=== PATIENT | female | born 1960 | race Caucasian/White ===

== ENCOUNTER 2017-12-13 20:17 | Emergency (ER) | payer BC ==
[2017-12-13 20:27] VITALS: TEMP 98.5
[2017-12-13] MEDS ORDERED: SODIUM CHLORIDE 0.9% 1,000 ML IV STA (20:54)
--- NOTE | 2017-12-13 20:56 | ED ---
General Adult HPI - General Chief complaint: Chest Pain Stated complaint: chest pain/nausea Time Seen by Provider: 12/13/17 20:29 Source: patient, RN notes reviewed, old records reviewed Mode of arrival: ambulatory Limitations: no limitations - History of Present Illness Initial comments: This is a 57-year-old female the ER for evaluation. Patient comes in for evaluation regarding multiple complaints. Patient is a lot of nonspecific complaints regarding nausea and vomiting. She states she is is disease is going through outpatient chemotherapy and after having therapy she does occasionally have nausea vomiting and sometimes N abnormalities. She obeys arm was continuing abdominal numbness and tingling. No diarrhea no fevers. - Related Data Home Medications Medication Instructions Recorded Confirmed Ibuprofen [Motrin] 600 mg PO Q8HR PRN 12/13/17 12/13/17 Lisinopril [Zestril] 5 mg PO DAILY 12/13/17 12/13/17 Ondansetron [Zofran ODT] 4 mg PO Q12HR PRN 12/13/17 12/13/17 Sulfamethox-Tmp 800-160Mg [Bactrim 1 tab PO DAILY 12/13/17 12/13/17 DS 800-160 mg] predniSONE 20 mg PO DAILY 12/13/17 12/13/17 Allergies Allergy/AdvReac Type Severity Reaction Status Date / Time azathioprine [From Imuran] Allergy Vomiting Verified 12/13/17 20:45 codeine Allergy Nausea Verified 12/13/17 20:45 metronidazole [From Flagyl] Allergy Anaphylaxis Verified 12/13/17 20:45 Review of Systems ROS Statement: Those systems with pertinent positive or pertinent negative responses have been documented in the HPI. ROS Other: All systems not noted in ROS Statement are negative. Past Medical History Past Medical History: Diabetes Mellitus Additional Past Medical History / Comment(s): Wegners GPA, Chemo for Wegners History of Any Multi-Drug Resistant Organisms: C-DIFF Date of last positivie culture/infection: 2014 Additional Past Surgical History / Comment(s): Right lung sugery Past Psychological History: No Psychological Hx Reported Smoking Status: Current every day smoker Past Alcohol Use History: None Reported Past Drug Use History: None Reported General Exam Limitations: no limitations General appearance: alert, in no apparent distress Head exam: Present: atraumatic, normocephalic, normal inspection Eye exam: Present: normal appearance, PERRL, EOMI. Absent: scleral icterus, conjunctival injection, periorbital swelling ENT exam: Present: normal exam, mucous membranes moist Neck exam: Present: normal inspection. Absent: tenderness, meningismus, lymphadenopathy Respiratory exam: Present: normal lung sounds bilaterally. Absent: respiratory distress, wheezes, rales, rhonchi, stridor Cardiovascular Exam: Present: regular rate, normal rhythm, normal heart sounds. Absent: systolic murmur, diastolic murmur, rubs, gallop, clicks GI/Abdominal exam: Present: soft, normal bowel sounds. Absent: distended, tenderness, guarding, rebound, rigid Extremities exam: Present: normal inspection, full ROM, normal capillary refill. Absent: tenderness, pedal edema, joint swelling, calf tenderness Back exam: Present: normal inspection Neurological exam: Present: alert, oriented X3, CN II-XII intact Psychiatric exam: Present: normal affect, normal mood Skin exam: Present: warm, dry, intact, normal color. Absent: rash Course Vital Signs 12/13/17 12/13/17 12/13/17 20:20 20:50 21:27 Temperature 98.5 F Pulse Rate 102 H 84 65 Respiratory 20 16 16 Rate Blood Pressure 158/78 136/64 154/75 O2 Sat by Pulse 96 96 97 Oximetry 12/13/17 23:07 Temperature 98.5 F Pulse Rate Respiratory Rate Blood Pressure O2 Sat by Pulse Oximetry - Reevaluation(s) Reevaluation #1: Patient's symptoms are currently resolved EKG Findings - EKG Comments: EKG Findings:: EKG shows normal sinus rhythm rate of 89, MO 1:30, QRS 68, QTc 447 Medical Decision Making - Medical Decision Making 57 female the ER with nonspecific symptoms nausea vomiting, patient symptoms are much improved versus resolved with hydration here in the ER patient can be discharged home - Lab Data Result diagrams: 12/13/17 20:54 12/13/17 20:54 Lab Results 12/13/17 12/13/17 12/13/17 Range/Units 20:54 20:54 20:54 WBC 7.2 (3.8-10.6) k/uL RBC 4.82 (3.80-5.40) m/uL Hgb 14.0 (11.4-16.0) gm/dL Hct 44.2 (34.0-46.0) % MCV 91.7 (80.0-100.0) fL MCH 29.1 (25.0-35.0) pg MCHC 31.7 (31.0-37.0) g/dL RDW 13.9 (11.5-15.5) % Plt Count 347 (150-450) k/uL Neutrophils % 71 % Lymphocytes % 22 % Monocytes % 5 % Eosinophils % 1 % Basophils % 0 % Neutrophils # 5.1 (1.3-7.7) k/uL Lymphocytes # 1.6 (1.0-4.8) k/uL Monocytes # 0.4 (0-1.0) k/uL Eosinophils # 0.1 (0-0.7) k/uL Basophils # 0.0 (0-0.2) k/uL PT (9.0-12.0) sec INR (<1.2) APTT (22.0-30.0) sec D-Dimer (<0.60) mg/L FEU Sodium 138 (137-145) mmol/L Potassium 5.0 (3.5-5.1) mmol/L Chloride 107 (98-107) mmol/L Carbon Dioxide 22 (22-30) mmol/L Anion Gap 9 mmol/L BUN 12 (7-17) mg/dL Creatinine 0.77 (0.52-1.04) mg/dL Est GFR (CKD-EPI)AfAm >90 (>60 ml/min/1.73 sqM) Est GFR (CKD-EPI)NonAf 85 (>60 ml/min/1.73 sqM) Glucose 105 H (74-99) mg/dL Calcium 9.3 (8.4-10.2) mg/dL Magnesium 2.1 (1.6-2.3) mg/dL Total Bilirubin 0.3 (0.2-1.3) mg/dL AST 29 (14-36) U/L ALT 47 (9-52) U/L Alkaline Phosphatase 64 (38-126) U/L Total Creatine Kinase 74 (30-135) U/L CK-MB (CK-2) 0.8 (0.0-2.4) ng/mL CK-MB (CK-2) Rel Index 1.1 Troponin I <0.012 (0.000-0.034) ng/mL Total Protein 6.9 (6.3-8.2) g/dL Albumin 4.4 (3.5-5.0) g/dL 12/13/17 Range/Units 20:54 WBC (3.8-10.6) k/uL RBC (3.80-5.40) m/uL Hgb (11.4-16.0) gm/dL Hct (34.0-46.0) % MCV (80.0-100.0) fL MCH (25.0-35.0) pg MCHC (31.0-37.0) g/dL RDW (11.5-15.5) % Plt Count (150-450) k/uL Neutrophils % % Lymphocytes % % Monocytes % % Eosinophils % % Basophils % % Neutrophils # (1.3-7.7) k/uL Lymphocytes # (1.0-4.8) k/uL Monocytes # (0-1.0) k/uL Eosinophils # (0-0.7) k/uL Basophils # (0-0.2) k/uL PT 9.5 (9.0-12.0) sec INR 1.0 (<1.2) APTT 23.7 (22.0-30.0) sec D-Dimer 0.93 H (<0.60) mg/L FEU Sodium (137-145) mmol/L Potassium (3.5-5.1) mmol/L Chloride (98-107) mmol/L Carbon Dioxide (22-30) mmol/L Anion Gap mmol/L BUN (7-17) mg/dL Creatinine (0.52-1.04) mg/dL Est GFR (CKD-EPI)AfAm (>60 ml/min/1.73 sqM) Est GFR (CKD-EPI)NonAf (>60 ml/min/1.73 sqM) Glucose (74-99) mg/dL Calcium (8.4-10.2) mg/dL Magnesium (1.6-2.3) mg/dL Total Bilirubin (0.2-1.3) mg/dL AST (14-36) U/L ALT (9-52) U/L Alkaline Phosphatase (38-126) U/L Total Creatine Kinase (30-135) U/L CK-MB (CK-2) (0.0-2.4) ng/mL CK-MB (CK-2) Rel Index Troponin I (0.000-0.034) ng/mL Total Protein (6.3-8.2) g/dL Albumin (3.5-5.0) g/dL - Radiology Data Radiology results: report reviewed (Chest x-ray CT is negative), image reviewed Disposition Clinical Impression: Atypical chest pain, Nausea & vomiting Disposition: HOME SELF-CARE Condition: Good Instructions: Acute Nausea and Vomiting (ED) Is patient prescribed a controlled substance at d/c from ED?: No Referrals: Connor Alvarez MD [Primary Care Provider] - 1-2 days
[2017-12-13 21:09] LABS: Basophils % (A) 0 %; Eosinophils # (A) 0.1 k/uL (0-0.7); Eosinophils % (A) 1 %; HCT 44.2 % (34.0-46.0); Lymphocytes # (A) 1.6 k/uL (1.0-4.8); Lymphocytes % (A) 22 %; MCH 29.1 pg (25.0-35.0); MCHC 31.7 g/dL (31.0-37.0); MCV 91.7 fL (80.0-100.0); Mean Platelet Volume 6.9; Monocytes # (A) 0.4 k/uL (0-1.0); Monocytes % (A) 5 %; Neutrophils # (A) 5.1 k/uL (1.3-7.7); Neutrophils % (A) 71 %; Platelet Count 347 k/uL (150-450); RBC 4.82 m/uL (3.80-5.40); RDW 13.9 % (11.5-15.5); WBC 7.2 k/uL (3.8-10.6)
[2017-12-13 21:18] LABS: ALT 47 U/L (9-52); AST 29 U/L (14-36); Albumin 4.4 g/dL (3.5-5.0); Alkaline Phosphatase 64 U/L (38-126); Anion Gap 9 mmol/L; Blood Urea Nitrogen 12 mg/dL (7-17); Calcium 9.3 mg/dL (8.4-10.2); Carbon Dioxide 22 mmol/L (22-30); Chloride 107 mmol/L (98-107); Glucose 105 mg/dL (74-99); Magnesium 2.1 mg/dL (1.6-2.3); Sodium 138 mmol/L (137-145); Total Bilirubin 0.3 mg/dL (0.2-1.3); Total Protein 6.9 g/dL (6.3-8.2)
[2017-12-13 21:24] LABS: Creatine Kinase 74 U/L (30-135)
[2017-12-13 21:27] VITALS: RESP 16
[2017-12-13 21:37] LABS: Creatine Kinase MB 0.8 ng/mL (0.0-2.4); Troponin I <0.012 ng/mL (0.000-0.034)
--- NOTE | 2017-12-13 21:38 | XR ---
EXAMINATION TYPE: XR chest 2V DATE OF EXAM: 12/13/2017 COMPARISON: NONE HISTORY: Weakness chest pain TECHNIQUE: Frontal and lateral views of the chest are obtained. FINDINGS: There is blunting of the right costophrenic angle. Heart size is normal. There is no heart failure. Lungs are clear of consolidation. IMPRESSION: Pleural fluid or reaction at the right lung base. Normal heart.
[2017-12-13 21:51] LABS: Partial Thromboplastin Time 23.7 sec (22.0-30.0); Prothrombin Time 9.5 sec (9.0-12.0)
[2017-12-13 21:59] LABS: D-Dimer 0.93 mg/L FEU (<0.60)
[2017-12-13] MEDS ORDERED: PANTOPRAZOLE 40 MG/10 ML VIAL IVP STA (22:00)
[2017-12-13] MEDS ORDERED: ONDANSETRON 4 MG/2 ML VIAL IVP STA (22:00)
[2017-12-13 22:04] VITALS: BP 154/75; PULSE 65
--- NOTE | 2017-12-13 22:41 | CT ---
EXAMINATION TYPE: CT angio chest DATE OF EXAM: 12/13/2017 10:27 PM COMPARISON: None HISTORY: Chest pain and nausea x1 week. CT DLP: 247.4 mGycm Automated exposure control for dose reduction was used. CONTRAST: CTA scan of the thorax is performed with IV Contrast, patient injected with 68ml mL of Isovue 370, pu lmonary embolism protocol. There are 3-D post processed images.. FINDINGS: There is blunting of right costophrenic angle. There is some elevation of the right diaphragm. There are clips at the right pulmonary hilum and apparent partial right lung resection. I see no filling de fects in the pulmonary arteries. There is absence of the right lower lobe pulmonary artery. There is no pericardial effusion. IMPRESSION: NO EVIDENCE OF PULMONARY EMBOLISM. THERE IS APPARENT RIGHT LOWER LOBECTOMY. THERE IS MILD PULMONARY S CARRING IN THE RESIDUAL RIGHT LUNG.
== END 2017-12-13 23:06 | disposition home or self-care (01) ==
LOC: EC 20:17
DX: R07.89 Other chest pain (principal); R11.2 Nausea with vomiting, unspecified; M31.30 Wegener's granulomatosis without renal involvement; F17.200 Nicotine dependence, unspecified, uncomplicated; Z79.52 Long term (current) use of systemic steroids; Z79.899 Other long term (current) drug therapy; Z88.1 Allergy status to other antibiotic agents; Z88.5 Allergy status to narcotic agent; Z88.8 Allergy status to other drugs, medicaments and biological substances
CPT/HCPCS: 36415; 93005; 85379; 80053; 82550; 82553; 83735; 84484; 85025; 85610; 85730; 71046; 71275; 99285; 96374; 96375; 96361; J2405; C9113; Q9967

== ENCOUNTER 2018-04-01 10:36 | Emergency (ER) | payer BC ==
[2018-04-01 10:43] VITALS: RESP 18
[2018-04-01] MEDS ORDERED: ONDANSETRON 4 MG/2 ML VIAL IVP STA (11:01)
[2018-04-01] MEDS ORDERED: PANTOPRAZOLE 40 MG/10 ML VIAL IVP STA (11:01)
[2018-04-01] MEDS ORDERED: SODIUM CHLORIDE 0.9% 1,000 ML IV STA ×2 (11:01)
[2018-04-01] MEDS ORDERED: IPRATROPIUM-ALBUTEROL 3 ML NEB INHALATION STA (11:03)
--- NOTE | 2018-04-01 11:06 | ED ---
Nausea/Vomiting/Diarrhea HPI - General Chief complaint: Nausea/Vomiting/Diarrhea Stated complaint: Vomiting/diarrhea Time Seen by Provider: 04/01/18 10:46 Source: patient, RN notes reviewed, old records reviewed Mode of arrival: ambulatory Limitations: no limitations - History of Present Illness Initial comments: Patient is a 58-year-old female with a history of nausea vomiting and diarrhea for 6 days. Patient states that over the past 3 days of vomiting since be getting worse. She has been taking nausea medication such as Zofran. 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 Patient states that she had a portion of her right lung removed a few years ago. Patient states that she's also noticed that she's had an increased cough production. - Related Data Home Medications Medication Instructions Recorded Confirmed Lisinopril [Zestril] 5 mg PO DAILY 12/13/17 04/01/18 Calcium Carbonate/Vitamin D3 1 tab PO DAILY 04/01/18 04/01/18 [Calcium 600-Vit D3 400 Caplet] Cholecalciferol (Vitamin D3) 10,000 unit PO DAILY 04/01/18 04/01/18 [Vitamin D3] predniSONE 7.5 mg PO DAILY 04/01/18 04/01/18 Previous Rx's Medication Instructions Recorded Nitrofurantoin Monohyd/M-Cryst 100 mg PO Q12HR #14 cap 04/01/18 [Macrobid] Allergies Allergy/AdvReac Type Severity Reaction Status Date / Time azathioprine [From Imuran] Allergy Vomiting Verified 04/01/18 11:26 codeine Allergy Nausea Verified 04/01/18 11:26 metronidazole [From Flagyl] Allergy Anaphylaxis Verified 04/01/18 11:26 Review of Systems ROS Statement: Those systems with pertinent positive or pertinent negative responses have been documented in the HPI. ROS Other: All systems not noted in ROS Statement are negative. Past Medical History Past Medical History: Diabetes Mellitus Additional Past Medical History / Comment(s): Wegners GPA, Chemo for Wegners History of Any Multi-Drug Resistant Organisms: C-DIFF Date of last positivie culture/infection: 2014 Additional Past Surgical History / Comment(s): Right lung sugery Past Psychological History: No Psychological Hx Reported Smoking Status: Current every day smoker Past Alcohol Use History: None Reported Past Drug Use History: None Reported General Exam - General Exam Comments Initial Comments: 4-year-old female. Alert and oriented. Limitations: no limitations General appearance: alert, in no apparent distress Head exam: Present: atraumatic, normocephalic, normal inspection Eye exam: Present: normal appearance, PERRL, EOMI. Absent: scleral icterus, conjunctival injection, periorbital swelling ENT exam: Present: normal exam, mucous membranes moist Neck exam: Present: normal inspection. Absent: tenderness, meningismus, lymphadenopathy Respiratory exam: Present: normal lung sounds bilaterally, wheezes (slight wheezing). Absent: respiratory distress, rales, rhonchi, stridor Cardiovascular Exam: Present: regular rate, normal rhythm, normal heart sounds. Absent: systolic murmur, diastolic murmur, rubs, gallop, clicks GI/Abdominal exam: Present: soft, normal bowel sounds. Absent: distended, tenderness, guarding, rebound, rigid Extremities exam: Present: normal inspection, full ROM, normal capillary refill. Absent: tenderness, pedal edema, joint swelling, calf tenderness Back exam: Present: normal inspection Neurological exam: Present: alert, oriented X3, CN II-XII intact Psychiatric exam: Present: normal affect, normal mood Skin exam: Present: warm, dry, intact, normal color. Absent: rash Course Vital Signs 04/01/18 04/01/18 04/01/18 10:40 12:12 12:22 Temperature 98.5 F Pulse Rate 107 H 108 H 106 H Respiratory 18 Rate Blood Pressure 161/89 O2 Sat by Pulse 94 L Oximetry 04/01/18 04/01/18 12:51 14:12 Temperature 98.6 F 98.7 F Pulse Rate 98 100 Respiratory 18 18 Rate Blood Pressure 160/70 151/85 O2 Sat by Pulse 95 96 Oximetry Medical Decision Making - Medical Decision Making 58-year-old female presents today with 1 week of vomiting and diarrhea. She was unable to produce a stool sample while in the emergency department. She is given IV Zofran states that she was hungry and she wanted a sandwich. She is emergent tolerated food. Patient lab work was obtained. She does have evidence of a urinary tract infection. Most likely related from diarrhea and wiping. Culture will be obtained. We'll put the Patient on antibiotics to cover for UTI. Patient does have nausea medication at home. She does feel better after receiving IV fluids and Protonix. I discussed the Patient should return with stool sample so we can do further testing and stool cultures. Patient will be discharged at this time with close follow-up with her primary care doctor, as well as advised to return the stool samples for further testing. Patient agrees to treatment plan will comply. - Lab Data Result diagrams: 04/01/18 11:23 04/01/18 11:23 Lab Results 04/01/18 04/01/18 04/01/18 Range/Units 10:50 11:23 11:23 WBC 7.8 (3.8-10.6) k/uL RBC 5.46 H (3.80-5.40) m/uL Hgb 15.1 (11.4-16.0) gm/dL Hct 48.0 H (34.0-46.0) % MCV 87.9 (80.0-100.0) fL MCH 27.6 (25.0-35.0) pg MCHC 31.4 (31.0-37.0) g/dL RDW 13.6 (11.5-15.5) % Plt Count 481 H (150-450) k/uL Neutrophils % 66 % Lymphocytes % 20 % Monocytes % 8 % Eosinophils % 3 % Basophils % 1 % Neutrophils # 5.1 (1.3-7.7) k/uL Lymphocytes # 1.6 (1.0-4.8) k/uL Monocytes # 0.6 (0-1.0) k/uL Eosinophils # 0.2 (0-0.7) k/uL Basophils # 0.1 (0-0.2) k/uL PT (9.0-12.0) sec INR (<1.2) APTT (22.0-30.0) sec Sodium 139 (137-145) mmol/L Potassium 3.7 (3.5-5.1) mmol/L Chloride 101 (98-107) mmol/L Carbon Dioxide 23 (22-30) mmol/L Anion Gap 15 mmol/L BUN 16 (7-17) mg/dL Creatinine 0.74 (0.52-1.04) mg/dL Est GFR (CKD-EPI)AfAm >90 (>60 ml/min/1.73 sqM) Est GFR (CKD-EPI)NonAf 89 (>60 ml/min/1.73 sqM) Glucose 109 H (74-99) mg/dL Plasma Lactic Acid Jacobo (0.7-2.0) mmol/L Calcium 10.5 H (8.4-10.2) mg/dL Total Bilirubin 0.7 (0.2-1.3) mg/dL AST 20 (14-36) U/L ALT 35 (9-52) U/L Alkaline Phosphatase 64 (38-126) U/L Total Protein 7.5 (6.3-8.2) g/dL Albumin 4.7 (3.5-5.0) g/dL Amylase 43 (30-110) U/L Lipase 220 (23-300) U/L Urine Color Yellow Urine Appearance Cloudy H (Clear) Urine pH 6.0 (5.0-8.0) Ur Specific [place] 1.017 (1.001-1.035) Urine Protein 2+ H (Negative) Urine Glucose (UA) Negative (Negative) Urine Ketones 1+ H (Negative) Urine Blood Small H (Negative) Urine Nitrite Negative (Negative) Urine Bilirubin 1+ H (Negative) Urine Urobilinogen 3.0 (<2.0) mg/dL Ur Leukocyte Esterase Large H (Negative) Urine RBC 7 H (0-5) /hpf Urine WBC 53 H (0-5) /hpf Ur Squamous Epith Cells 18 H (0-4) /hpf Urine Bacteria Occasional H (None) /hpf Hyaline Casts 56 H (0-2) /lpf Urine Mucus Many H (None) /hpf 04/01/18 04/01/18 Range/Units 11:23 11:23 WBC (3.8-10.6) k/uL RBC (3.80-5.40) m/uL Hgb (11.4-16.0) gm/dL Hct (34.0-46.0) % MCV (80.0-100.0) fL MCH (25.0-35.0) pg MCHC (31.0-37.0) g/dL RDW (11.5-15.5) % Plt Count (150-450) k/uL Neutrophils % % Lymphocytes % % Monocytes % % Eosinophils % % Basophils % % Neutrophils # (1.3-7.7) k/uL Lymphocytes # (1.0-4.8) k/uL Monocytes # (0-1.0) k/uL Eosinophils # (0-0.7) k/uL Basophils # (0-0.2) k/uL PT 9.4 (9.0-12.0) sec INR 0.9 (<1.2) APTT 23.5 (22.0-30.0) sec Sodium (137-145) mmol/L Potassium (3.5-5.1) mmol/L Chloride (98-107) mmol/L Carbon Dioxide (22-30) mmol/L Anion Gap mmol/L BUN (7-17) mg/dL Creatinine (0.52-1.04) mg/dL Est GFR (CKD-EPI)AfAm (>60 ml/min/1.73 sqM) Est GFR (CKD-EPI)NonAf (>60 ml/min/1.73 sqM) Glucose (74-99) mg/dL Plasma Lactic Acid Jacobo 1.3 (0.7-2.0) mmol/L Calcium (8.4-10.2) mg/dL Total Bilirubin (0.2-1.3) mg/dL AST (14-36) U/L ALT (9-52) U/L Alkaline Phosphatase (38-126) U/L Total Protein (6.3-8.2) g/dL Albumin (3.5-5.0) g/dL Amylase (30-110) U/L Lipase (23-300) U/L Urine Color Urine Appearance (Clear) Urine pH (5.0-8.0) Ur Specific [place] (1.001-1.035) Urine Protein (Negative) Urine Glucose (UA) (Negative) Urine Ketones (Negative) Urine Blood (Negative) Urine Nitrite (Negative) Urine Bilirubin (Negative) Urine Urobilinogen (<2.0) mg/dL Ur Leukocyte Esterase (Negative) Urine RBC (0-5) /hpf Urine WBC (0-5) /hpf Ur Squamous Epith Cells (0-4) /hpf Urine Bacteria (None) /hpf Hyaline Casts (0-2) /lpf Urine Mucus (None) /hpf - Radiology Data Radiology results: report reviewed Chronic changes to the right hemithorax without acute pulmonary process. Disposition Clinical Impression: Nausea & vomiting, Diarrhea, UTI (urinary tract infection) Disposition: HOME SELF-CARE Condition: Good Instructions: Acute Nausea and Vomiting (ED), Acute Diarrhea (ED) Additional Instructions: Patient has a close follow-up with primary care physician. Return to emergency department if any alarming signs or symptoms occur. Patient should return a stool study sample for outpatient testing. Prescriptions: Nitrofurantoin Monohyd/M-Cryst [Macrobid] 100 mg PO Q12HR #14 cap Is patient prescribed a controlled substance at d/c from ED?: No Referrals: Connor Alvarez MD [Primary Care Provider] - 1-2 days Time of Disposition: 13:42
[2018-04-01 11:52] LABS: Basophils # (A) 0.1 k/uL (0-0.2); Basophils % (A) 1 %; Eosinophils # (A) 0.2 k/uL (0-0.7); Eosinophils % (A) 3 %; HGB 15.1 gm/dL (11.4-16.0); Lymphocytes # (A) 1.6 k/uL (1.0-4.8); Lymphocytes % (A) 20 %; MCH 27.6 pg (25.0-35.0); MCHC 31.4 g/dL (31.0-37.0); MCV 87.9 fL (80.0-100.0); Mean Platelet Volume 6.5; Monocytes # (A) 0.6 k/uL (0-1.0); Monocytes % (A) 8 %; Neutrophils # (A) 5.1 k/uL (1.3-7.7); Neutrophils % (A) 66 %; Platelet Count 481 k/uL (150-450); RBC 5.46 m/uL (3.80-5.40); RDW 13.6 % (11.5-15.5); WBC 7.8 k/uL (3.8-10.6)
--- NOTE | 2018-04-01 11:54 | XR ---
EXAMINATION TYPE: XR chest 2V DATE OF EXAM: 04/01/2018 COMPARISON: Chest x-ray and CT chest December 13, 2017 HISTORY: Chest and abdominal pain. Nausea vomiting and diarrhea for 6 days. TECHNIQUE: Frontal and lateral views of the chest are obtained. FINDINGS: There is redemonstration of right-sided volume loss with mediastinal shift and chronic ozzie nting of right lateral costophrenic angle without significant effusion. There is scattered right lung linear scarring. There is old displaced fracture posterior right fourth rib redemonstrated. Left jermaine g remains clear. The cardiac silhouette size remains within normal limits. IMPRESSION: Chronic changes to right hemithorax without acute pulmonary process.
[2018-04-01 12:06] LABS: INR 0.9 (<1.2); Partial Thromboplastin Time 23.5 sec (22.0-30.0); Prothrombin Time 9.4 sec (9.0-12.0)
[2018-04-01 12:13] LABS: Appearance,Urine Cloudy (Clear); Bacteria,Urine Occasional /hpf; Bilirubin,Urine 1+ (Negative); Blood,Urine Small (Negative); Color,Urine Yellow; Glucose,Urine (UA) Negative (Negative); Hyaline Casts,Urine 56 /lpf (0-2); Ketones,Urine 1+ (Negative); Leukocyte Esterase,Urine Large (Negative); Mucus,Urine Many /hpf; Nitrite,Urine Negative (Negative); Protein,Urine 2+ (Negative); RBC,Urine 7 /hpf (0-5); Specific Gravity,Urine 1.017 (1.001-1.035); Squamous Epithelial Cell,Urine 18 /hpf (0-4); WBC,Urine 53 /hpf (0-5)
[2018-04-01 12:13] LABS: ALT 35 U/L (9-52); AST 20 U/L (14-36); Albumin 4.7 g/dL (3.5-5.0); Alkaline Phosphatase 64 U/L (38-126); Amylase 43 U/L (30-110); Anion Gap 15 mmol/L; Blood Urea Nitrogen 16 mg/dL (7-17); Calcium 10.5 mg/dL (8.4-10.2); Carbon Dioxide 23 mmol/L (22-30); Chloride 101 mmol/L (98-107); Glucose 109 mg/dL (74-99); Lipase 220 U/L (23-300); Potassium 3.7 mmol/L (3.5-5.1); Sodium 139 mmol/L (137-145); Total Bilirubin 0.7 mg/dL (0.2-1.3); Total Protein 7.5 g/dL (6.3-8.2)
[2018-04-01 14:13] VITALS: BP 151/85; PULSE 100; TEMP 98.7
== END 2018-04-01 14:10 | disposition home or self-care (01) ==
LOC: EC 10:36
DX: N39.0 Urinary tract infection, site not specified (principal); R19.7 Diarrhea, unspecified; F17.200 Nicotine dependence, unspecified, uncomplicated; Z79.899 Other long term (current) drug therapy; Z79.51 Long term (current) use of inhaled steroids; Z88.5 Allergy status to narcotic agent; Z88.1 Allergy status to other antibiotic agents; Z88.8 Allergy status to other drugs, medicaments and biological substances
CPT/HCPCS: 36415; 94640; 80053; 82150; 83605; 83690; 85025; 85610; 85730; 81001; 87040; 87086; 71046; 99284; 96374; 96375; 96361 ×2; J2405; C9113

== ENCOUNTER → 2018-08-07 | Outpatient (CLI) | payer SELFPAY ==
--- NOTE | 2018-08-07 13:21 | XR ---
EXAMINATION TYPE: XR Hip Complete RT DATE OF EXAM: 08/07/2018 CLINICAL HISTORY: Right hip pain with no known injury TECHNIQUE: AP and frogleg views of the right hip are obtained. COMPARISON: None. FINDINGS: There is no acute fracture/dislocation evident in the right hip. The joint space in the r ight hip demonstrates very minimal joint space narrowing. The overlying soft tissue appears unremark able. IMPRESSION: There is no acute fracture or dislocation in the right hip. Very minimal right femoral a cetabular arthropathy.
== END | disposition home or self-care (01) ==
LOC: RADXRMAIN 12:47
PROVIDERS: ATTEND Internal Medicine
DX: M16.11 Unilateral primary osteoarthritis, right hip (principal)
CPT/HCPCS: 73502

== ENCOUNTER 2018-08-22 15:58 | Observation (INO) | payer BC ==
[2018-08-22] MEDS ORDERED: IPRATROPIUM-ALBUTEROL 3 ML NEB INHALATION STA (17:44)
[2018-08-22] MEDS ORDERED: methylPREDNISolone SOD SUCCI 125 MG/2 ML VIAL IV STA (17:44)
--- NOTE | 2018-08-22 17:48 | ED ---
General Adult HPI - General Chief complaint: Shortness of Breath Stated complaint: Diff Breathing Time Seen by Provider: 08/22/18 16:30 Source: patient, RN notes reviewed Mode of arrival: ambulatory Limitations: no limitations - History of Present Illness Initial comments: Patient is a pleasant 58-year-old female presenting to emergency department with difficulty breathing. Patient was advised come the emergency department by Dr. Jung. Patient has been having symptoms for approximately one month now. 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 Patient does not believe she hasn't been any other area of her body. Patient does have history of lung resection approximately 2 and half years ago that was approximately two thirds of the right lung. Patient has been coughing. Patient has thick/opaque yellow sputum. Patient was placed on azithromycin. Following no improvement patient was placed on steroids and amoxicillin. Patient still is getting no better. Patient has been using her inhaler frequently. Normally she does not need to use it. - Related Data Home Medications Medication Instructions Recorded Confirmed predniSONE 7.5 mg PO DIRECTED 04/01/18 08/22/18 Albuterol Inhaler [Ventolin Hfa 1 - 2 puff INHALATION RT-Q6H PRN 08/22/18 08/22/18 Inhaler] Amoxic-Pot Clav 500-125 mg 1 tab PO BID 08/22/18 08/22/18 [Augmentin 500-125 mg] Bacillus Coagulans [Digestive 1 tab PO DAILY 08/22/18 08/22/18 Advantage] Biotin 5,000 mcg PO DAILY 08/22/18 08/22/18 Pantoprazole Sodium [Protonix] 40 mg PO DAILY 08/22/18 08/22/18 predniSONE See Taper PO DAILY 08/22/18 08/22/18 Allergies Allergy/AdvReac Type Severity Reaction Status Date / Time azathioprine [From Imuran] Allergy Vomiting Verified 08/22/18 17:36 codeine Allergy Nausea Verified 08/22/18 17:36 metronidazole [From Flagyl] Allergy Anaphylaxis Verified 08/22/18 17:36 Review of Systems ROS Statement: Those systems with pertinent positive or pertinent negative responses have been documented in the HPI. ROS Other: All systems not noted in ROS Statement are negative. Constitutional: Denies: fever Eyes: Denies: eye pain ENT: Denies: ear pain Respiratory: Reports: cough, dyspnea Cardiovascular: Denies: chest pain Endocrine: Reports: fatigue Gastrointestinal: Denies: abdominal pain Genitourinary: Denies: dysuria Musculoskeletal: Denies: back pain Skin: Denies: rash Neurological: Denies: weakness Past Medical History Past Medical History: Diabetes Mellitus Additional Past Medical History / Comment(s): Wegners GPA, Chemo for Wegners History of Any Multi-Drug Resistant Organisms: C-DIFF Date of last positivie culture/infection: 2014 Additional Past Surgical History / Comment(s): Right lung sugery Past Psychological History: No Psychological Hx Reported Smoking Status: Current every day smoker Past Alcohol Use History: None Reported Past Drug Use History: None Reported General Exam Limitations: no limitations General appearance: alert, in no apparent distress Head exam: Present: atraumatic Eye exam: Present: normal appearance, PERRL ENT exam: Present: normal oropharynx Neck exam: Present: normal inspection Respiratory exam: Present: wheezes (Harsh wheeze) Cardiovascular Exam: Present: regular rate, normal rhythm GI/Abdominal exam: Present: soft. Absent: tenderness Extremities exam: Present: normal inspection. Absent: pedal edema, calf tenderness Neurological exam: Present: alert Psychiatric exam: Present: normal affect, normal mood Skin exam: Present: normal color Course Vital Signs 08/22/18 08/22/18 08/22/18 16:11 18:22 18:34 Temperature 98.5 F Pulse Rate 96 77 85 Respiratory 20 Rate Blood Pressure 140/74 O2 Sat by Pulse 100 Oximetry EKG Findings - EKG Comments: EKG Findings:: Normal sinus rhythm 89. MS 134. QRS 70. QT 386. QTc 469. Normal axis. Normal QRS. No acute ST change. Medical Decision Making - Medical Decision Making Patient reevaluated and resting comfortably in bed. Patient updated on results and plan. Case was discussed in detail with Dr. Alvarez who is familiar with this patient. He would like admission with IV steroids and Zosyn and Levaquin. He would also like consult Dr. Duong. He does recommend holding on computed tomography scan at this point until evaluated by Dr. Duong. - Lab Data Result diagrams: 08/22/18 17:52 08/22/18 17:52 Lab Results 08/22/18 08/22/18 08/22/18 Range/Units 17:52 17:52 17:52 WBC 10.3 (3.8-10.6) k/uL RBC 4.75 (3.80-5.40) m/uL Hgb 12.9 (11.4-16.0) gm/dL Hct 40.7 (34.0-46.0) % MCV 85.7 (80.0-100.0) fL MCH 27.1 (25.0-35.0) pg MCHC 31.7 (31.0-37.0) g/dL RDW 15.2 (11.5-15.5) % Plt Count 488 H (150-450) k/uL Neutrophils % 88 % Lymphocytes % 10 % Monocytes % 2 % Eosinophils % 1 % Basophils % 0 % Neutrophils # 9.0 H (1.3-7.7) k/uL Lymphocytes # 1.0 (1.0-4.8) k/uL Monocytes # 0.2 (0-1.0) k/uL Eosinophils # 0.1 (0-0.7) k/uL Basophils # 0.0 (0-0.2) k/uL PT 9.4 (9.0-12.0) sec INR 0.9 (<1.2) APTT 22.7 (22.0-30.0) sec Sodium 138 (137-145) mmol/L Potassium 5.0 (3.5-5.1) mmol/L Chloride 107 (98-107) mmol/L Carbon Dioxide 23 (22-30) mmol/L Anion Gap 8 mmol/L BUN 18 H (7-17) mg/dL Creatinine 0.70 (0.52-1.04) mg/dL Est GFR (CKD-EPI)AfAm >90 (>60 ml/min/1.73 sqM) Est GFR (CKD-EPI)NonAf >90 (>60 ml/min/1.73 sqM) Glucose 152 H (74-99) mg/dL Calcium 9.7 (8.4-10.2) mg/dL Total Bilirubin 0.3 (0.2-1.3) mg/dL AST 17 (14-36) U/L ALT 27 (9-52) U/L Alkaline Phosphatase 69 (38-126) U/L NT-Pro-B Natriuret Pep pg/mL Total Protein 6.8 (6.3-8.2) g/dL Albumin 4.4 (3.5-5.0) g/dL 08/22/18 Range/Units 17:52 WBC (3.8-10.6) k/uL RBC (3.80-5.40) m/uL Hgb (11.4-16.0) gm/dL Hct (34.0-46.0) % MCV (80.0-100.0) fL MCH (25.0-35.0) pg MCHC (31.0-37.0) g/dL RDW (11.5-15.5) % Plt Count (150-450) k/uL Neutrophils % % Lymphocytes % % Monocytes % % Eosinophils % % Basophils % % Neutrophils # (1.3-7.7) k/uL Lymphocytes # (1.0-4.8) k/uL Monocytes # (0-1.0) k/uL Eosinophils # (0-0.7) k/uL Basophils # (0-0.2) k/uL PT (9.0-12.0) sec INR (<1.2) APTT (22.0-30.0) sec Sodium (137-145) mmol/L Potassium (3.5-5.1) mmol/L Chloride (98-107) mmol/L Carbon Dioxide (22-30) mmol/L Anion Gap mmol/L BUN (7-17) mg/dL Creatinine (0.52-1.04) mg/dL Est GFR (CKD-EPI)AfAm (>60 ml/min/1.73 sqM) Est GFR (CKD-EPI)NonAf (>60 ml/min/1.73 sqM) Glucose (74-99) mg/dL Calcium (8.4-10.2) mg/dL Total Bilirubin (0.2-1.3) mg/dL AST (14-36) U/L ALT (9-52) U/L Alkaline Phosphatase (38-126) U/L NT-Pro-B Natriuret Pep 129 pg/mL Total Protein (6.3-8.2) g/dL Albumin (3.5-5.0) g/dL - Radiology Data Radiology results: image reviewed (Two-view chest x-ray does show pleural reaction and thickening on the right side. No change from previous.) Disposition Clinical Impression: Dyspnea Disposition: ADMITTED IP TO THIS HOSP Is patient prescribed a controlled substance at d/c from ED?: No Referrals: Connor Alvarez MD [Primary Care Provider] - 1-2 days Decision Time: 19:32
[2018-08-22 18:27] LABS: Basophils % (A) 0 %; Eosinophils # (A) 0.1 k/uL (0-0.7); Eosinophils % (A) 1 %; HCT 40.7 % (34.0-46.0); HGB 12.9 gm/dL (11.4-16.0); Lymphocytes % (A) 10 %; MCH 27.1 pg (25.0-35.0); MCHC 31.7 g/dL (31.0-37.0); MCV 85.7 fL (80.0-100.0); Mean Platelet Volume 6.8; Monocytes # (A) 0.2 k/uL (0-1.0); Monocytes % (A) 2 %; Neutrophils % (A) 88 %; Platelet Count 488 k/uL (150-450); RBC 4.75 m/uL (3.80-5.40); RDW 15.2 % (11.5-15.5); WBC 10.3 k/uL (3.8-10.6)
[2018-08-22 18:35] LABS: ALT 27 U/L (9-52); AST 17 U/L (14-36); Albumin 4.4 g/dL (3.5-5.0); Alkaline Phosphatase 69 U/L (38-126); Anion Gap 8 mmol/L; Blood Urea Nitrogen 18 mg/dL (7-17); Calcium 9.7 mg/dL (8.4-10.2); Carbon Dioxide 23 mmol/L (22-30); Chloride 107 mmol/L (98-107); Glucose 152 mg/dL (74-99); Sodium 138 mmol/L (137-145); Total Bilirubin 0.3 mg/dL (0.2-1.3); Total Protein 6.8 g/dL (6.3-8.2)
[2018-08-22 18:42] LABS: INR 0.9 (<1.2); Partial Thromboplastin Time 22.7 sec (22.0-30.0); Prothrombin Time 9.4 sec (9.0-12.0)
--- NOTE | 2018-08-22 19:03 | XR ---
EXAMINATION TYPE: XR chest 2V DATE OF EXAM: 08/22/2018 COMPARISON: 04/01/2018 HISTORY: Difficulty breathing TECHNIQUE: Frontal and lateral views of the chest are obtained. FINDINGS: There is blunting of right costophrenic angle. Heart size is normal. There is pleural thic kening at the right lung apex with some shift of the trachea to the right side. Left lung is clear. IMPRESSION: There is some pleural reaction and thickening on the right side. Normal heart. No change .
[2018-08-22] MEDS ORDERED: IPRATROPIUM-ALBUTEROL 3 ML NEB INHALATION PRN (19:38)
[2018-08-22] MEDS ORDERED: PNEUMONIA PROTOCOL UTILIZED 1 EACH MISC PO PRN (19:38)
[2018-08-22] MEDS ORDERED: PIPERACILLIN-TAZOBACTAM 3.375 GM in SODIUM CHLORIDE 0.9% 100 ML IVPB STA (19:38)
[2018-08-22] MEDS ORDERED: LEVOFLOXACIN 750MG-D5W PMX 750 MG in DEXTROSE/WATER 1 150ML.BAG IVPB STA (19:38)
[2018-08-22] MEDS: IPRATROPIUM-ALBUTEROL 3 ML NEB INHALATION SCH (21:23)
[2018-08-22] MEDS: LEVOFLOXACIN 750MG-D5W PMX 750 MG in DEXTROSE/WATER 1 150ML.BAG IVPB SCH (23:32)
[2018-08-22] MEDS: methylPREDNISolone SOD SUCCI 125 MG/2 ML VIAL IV SCH (23:33)
[2018-08-23] MEDS: PIPERACILLIN-TAZOBACTAM 3.375 GM in SODIUM CHLORIDE 0.9% 100 ML IVPB SCH ×3 (01:33→17:41)
[2018-08-23] MEDS: methylPREDNISolone SOD SUCCI 125 MG/2 ML VIAL IV SCH ×4 (06:01→23:59)
--- NOTE | 2018-08-23 07:04 | XR ---
EXAMINATION TYPE: XR chest 2V DATE OF EXAM: 08/23/2018 COMPARISON: Chest x-ray from yesterday and older x-rays. CTA chest December 13, 2017 HISTORY: Pneumonia progress study. TECHNIQUE: Frontal and lateral views of the chest are obtained. FINDINGS: There is chronic right-sided volume loss with mediastinal shift. There is chronic blunti ng of the right lateral costophrenic angle mimicking pleural effusion. There is chronic parenchymal c hange with right basilar scarring but no new suspicious focal airspace opacity or pneumothorax seen b ilaterally. Cardiac silhouette size remains within normal limits. The osseous structures are intact. IMPRESSION: Chronic changes without acute pulmonary process.
[2018-08-23] MEDS: IPRATROPIUM-ALBUTEROL 3 ML NEB INHALATION SCH ×4 (08:29→20:46)
--- NOTE | 2018-08-23 11:24 | P.HPIM ---
History of Present Illness H&P Date: 08/23/18 Chief Complaint: Shortness of breath. 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 back in 2014, history of obesity, chronic tobacco use and dependence, diabetes mellitus type 2, patient was seen in my office about 2 weeks ago with symptoms of increased coughing and increased postnasal drip with a clear phlegm at that time she was advised to use Flonase nasal spray 1 puff twice a day along with Zyrtec 10 mg orally once every day she did not have any relief with that, she ended up seeing where she was prescribed Augmentin as well as prednisone burst and taper she came back to the to see her yesterday and she was complaining of increased shortness breath as well as increased coughing she was directed to the emergency department at [facility] where she had a chest x-ray that showed no acute of normalities some pleural reaction on the right side heart size was normal EKG normal sinus rhythm laboratory values were all normal but because of the presentation patient was admitted to the hospital for evaluation by pulmonary medicine she was started on IV antibiotic in the form of Levaquin and Zosyn as well as Pulmicort and she was placed on steroid as well pulmonary consultation is pending . Review of Systems Constitutional: Reports weight gain, Denies anorexia, Denies lethargy, Denies malaise, Denies weakness Eyes: denies blurred vision, denies bulging eye, denies decreased vision, denies diplopia Ears: deny: decreased hearing Ears, nose, mouth and throat: Denies dysphagia, Denies neck lump, Denies swelling in throat, Denies sore throat Cardiovascular: Reports decreased exercise tolerance, Reports shortness of breath, Denies chest pain, Denies leg edema, Denies lightheadedness, Denies ra pid heart beat, Denies syncope Respiratory: Reports cough, Reports cough with sputum, Reports dyspnea, Reports wheezing, Denies congestion, Denies home oxygen, Denies sleep apnea, Denies snoring Gastrointestinal: Denies belching, Denies bloating, Denies BRBPR, Denies heartburn, Denies loss of appetite, Denies melena, Denies nausea, Denies vomiting Genitourinary: Denies dysuria, Denies hematuria Musculoskeletal: Denies myalgias Musculoskeletal: absent: ankle pain, ankle stiffness, ankle swelling, elbow pain, elbow stiffness, elbow swelling, foot pain, foot stiffness, foot swelling, hand pain, hand stiffness, hand swelling, hip pain, hip stiffness, hip swelling, knee pain, knee stiffness, knee swelling, shoulder pain, shoulder stiffness, shoulder swelling, wrist pain, wrist stiffness, wrist swelling Integumentary: Denies pruritus, Denies rash Neurological: Denies numbness, Denies weakness Psychiatric: Denies anxiety, Denies depression Endocrine: Denies fatigue, Denies weight change Past Medical History Past Medical History: Diabetes Mellitus, GERD/Reflux, Respiratory Disorder Additional Past Medical History / Comment(s): Wegners GPA 2014, Chemo for Wegners, endometriosis, ovarian cysts History of Any Multi-Drug Resistant Organisms: C-DIFF Date of last positivie culture/infection: 2014 MDRO Source:: Stool Past Surgical History: Section Additional Past Surgical History / Comment(s): Right lung resection 2016, L humerus double compound fx repair, hemrrhoidectomy, colonoscopy Past Anesthesia/Blood Transfusion Reactions: No Reported Reaction Past Psychological History: No Psychological Hx Reported Smoking Status: Current every day smoker (Patient smoked one pack every day for 30 years and then she is down to half a pack every day and now down to 3-5 cigarettes on a daily basis.) Past Alcohol Use History: None Reported Past Drug Use History: None Reported - Past Family History Mother Family Medical History: Coronary Artery Disease (CAD) (Mother 77-year-old with history of coronary artery disease post 6 stents placement also she developed some neurological illness with progressive weakness.) Father Family Medical History: Myocardial Infarction ([place]) (Father at age 45 from [place].) Brother(s) Family Medical History: Hypertension (Patient has one brother who has hypertension and kidney stones per) Sister(s) Family Medical History: No Reported History (Patient has one sister with gallstones.) Daughter(s) Family Medical History: No Reported History (Patient has 2 daughters no major medical problems per he) Medications and Allergies Home Medications Medication Instructions Recorded Confirmed Type predniSONE 7.5 mg PO DIRECTED 04/01/18 08/22/18 History Albuterol Inhaler [Ventolin Hfa 1 - 2 puff INHALATION RT-Q6H PRN 08/22/18 08/22/18 History Inhaler] Amoxic-Pot Clav 500-125 mg 1 tab PO BID 08/22/18 08/22/18 History [Augmentin 500-125 mg] Bacillus Coagulans [Digestive 1 tab PO DAILY 08/22/18 08/22/18 History Advantage] Biotin 5,000 mcg PO DAILY 08/22/18 08/22/18 History Pantoprazole Sodium [Protonix] 40 mg PO DAILY 08/22/18 08/22/18 History predniSONE See Taper PO DAILY 08/22/18 08/22/18 History Allergies Allergy/AdvReac Type Severity Reaction Status Date / Time azathioprine [From Imuran] Allergy Vomiting Verified 08/22/18 17:36 codeine Allergy Nausea Verified 08/22/18 17:36 metronidazole [From Flagyl] Allergy Anaphylaxis Verified 08/22/18 17:36 Physical Exam Vitals: Vital Signs Temp Pulse Pulse Resp BP BP Pulse Ox 08/23/18 08:44 84 08/23/18 08:32 86 08/23/18 05:14 98.2 F 65 20 177/91 95 08/23/18 05:00 142/90 08/23/18 00:40 66 20 08/22/18 21:40 83 08/22/18 21:39 97.8 F 66 20 133/79 96 08/22/18 21:24 83 95 08/22/18 20:55 98.0 F 71 16 159/98 95 08/22/18 20:00 75 18 144/80 96 08/22/18 19:30 81 17 132/77 93 L 08/22/18 19:00 86 17 120/78 94 L 08/22/18 18:34 85 08/22/18 18:30 75 16 123/102 98 08/22/18 18:22 77 08/22/18 16:11 98.5 F 96 20 140/74 100 Intake and Output 08/22/18 08/23/18 08/23/18 22:59 06:59 14:59 Intake Total 590 590 Balance 590 590 Intake: Oral 590 590 Other: Voiding Method Toilet Toilet # Voids 2 Weight 73.482 kg - Constitutional General appearance: mild distress, obese - EENT Eyes: anicteric sclerae, EOMI, PERRLA, no ptosis, no scleral icterus, normal appearance ENT: hearing grossly normal, NA/AT, normal oropharynx, no thrush Ears: bilateral: normal - Neck Neck: no lymphadenopathy, normal ROM, no rigidity, no stridor, no thyromegaly Carotids: bilateral: upstroke normal Thyroid: bilateral: normal size - Respiratory Respiratory: bilateral: diminished, wheezing, prolonged expiration, negative: dullness, rales, rhonchi - Cardiovascular Rhythm: regular Heart sounds: normal: S1, S2 Abnormal Heart Sounds: no systolic murmur, no rub, no S3 Gallop, no S4 Gallop, no click - Gastrointestinal General gastrointestinal: normal bowel sounds, soft, no tenderness, no umbilical hernia, no ventral hernia - Integumentary Integumentary: normal, normal turgor - Neurologic Neurologic: CNII-XII intact - Musculoskeletal Musculoskeletal: generalized weakness - Psychiatric Psychiatric: A&O x's 3, appropriate affect, intact judgment & insight Results CBC & Chem 7: 08/22/18 17:52 08/22/18 17:52 Labs: Abnormal Lab Results - Last 24 Hours (Table) 08/22/18 08/22/18 Range/Units 17:52 17:52 Plt Count 488 H (150-450) k/uL Neutrophils # 9.0 H (1.3-7.7) k/uL BUN 18 H (7-17) mg/dL Glucose 152 H (74-99) mg/dL Thrombosis Risk Factor Assmnt - DVT/VTE Prophylaxis DVT/VTE Prophylaxis: Pharmacologic Prophylaxis ordered, Mechanical Prophylaxis ordered - Choose All That Apply Any of the Below Risk Factors Present?: No Other Risk Factors: No Other congenital or acquired thrombophilia - If yes, enter type in comment: No Thrombosis Risk Factor Assessment Level: Very Low Risk Assessment and Plan Assessment: Assessment and plan: 1. Acute respiratory insufficiency due to acute bronchitis with possible underlying COPD in a patient with a history of Neves granulomatosis. Continue patient on Levaquin 500 mg IV piggyback every 24 hours, Zosyn 3.375 g IV piggyback every 6 hours, Mucinex 600 mg orally twice every day, Solu-Medrol 60 mg IV push every 6 hours, Pulmicort 1 mg nebulization twice every day, DuoNeb 3 mL nebulization 4 times every day, sputum culture, we will obtain pulmonary consultation from . 2. History of Neves granulomatosis. Continue patient on centimeter oh and treatment in paragraph #1. 3. GERD. Continue Protonix 40 mg orally once every day. 4. Hyperglycemia. Monitor the patient sugar washes and steroid. 5. Chronic tobacco use and dependence. Smoking cessation and counseling an increased risk of CAD, CVA, and malignancy per 6. DVT prophylaxis. Heparin 5000 units subcutaneously every 8 hours . 7. GI prophylaxis. Continue patient on Protonix 40 mg orally once every day. 8. Admit to inpatient. Estimated length of stay 2 midnights per 9. Patient's full code.
[2018-08-23 12:19] LABS: Glucose,Whole Blood 202 mg/dL (75-99)
[2018-08-23] MEDS: INSULIN ASPART (NovoLOG) 100 UNIT/ML VIAL SQ SCH ×3 (12:46→20:42)
--- NOTE | 2018-08-23 13:44 | P.CNPUL ---
History of Present Illness Consult date: 08/23/18 Requesting physician: Connor Alvarez Reason for consult: dyspnea Chief complaint: Shortness of breath, cough, congestion History of present illness: This is a very pleasant 58-year-old female patient who follows with Dr. Reyes as her primary care physician. 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 She had developed hemoptysis and shortness of breath. She had undergone a right mid and lower lung lobectomies. She states she had an 8 cm no chronic area and was hospitalized for 21 days back in 2015 in [place]. She states the lung tissue was inconclusive for Curtis's disease but was given the diagnosis per her c d stripper at that time. She moved here to [place] in February 2017. She follows with a search strategist at [facility] Dr. Neri and she is receiving Rituxan every 6 months with the last dose in May 2018. She is maintained on prednisone 7.5 mg daily. Over the last month or so she's been having increasing shortness of breath cough with yellow productive sputum. She was treated with antibiotics and steroids in the outpatient setting without much improvement. She was admitted here through the emergency room yesterday. Chest x-ray showed some pleural thickening of the right lung apex and shift of the trachea to the right side. Left lung was clear. Follow-up chest x-ray today reveals chronic changes but no acute pulmonary process. She is seen in consultation on the regular medical floor. She is awake and alert in no acute distress. She is currently afebrile. Hemodynamically stable. Maintaining O2 saturations in the upper 90s on room air. Continues with a loose nonproductive cough. White count 10.3. Hemoglobin 12.9. Creatinine 0.70. She's been initiated and DuoNeb inhalations, Pulmicort inhalations, IV Solu-Medrol, antibiotics in the form of Zosyn and Levaquin. Review of Systems REVIEW OF SYSTEMS: CONSTITUTIONAL: Denies any recent significant weight loss or weight gain. EYES: Denies change in vision. EARS, NOSE, MOUTH, THROAT: Denies headaches, denies sore throat. CARDIOVASCULAR: Denies chest pain, palpitations or syncopal episodes. RESPIRATORY: Positive for shortness of breath, cough, congestion no hemoptysis. GASTROINTESTINAL: Denies change in appetite, denies abdominal pain GENITOURINARY: Denies hematuria, denies infections. MUSKULOSKELETAL: Denies pain, denies swelling. INTEGUMENTARY: Denies rash, denies eczema. NEUROLOGICAL: Denies recent memory loss, no recent seizure activity. PSYCHIATRIC: Denies anxiety, denies depression. HEMATOLOGIC/LYMPHATIC: Denies anemia, denies enlarged lymph nodes. Past Medical History Past Medical History: Diabetes Mellitus, GERD/Reflux, Respiratory Disorder Additional Past Medical History / Comment(s): Wegners GPA 2015, Chemo for Wegners, endometriosis, ovarian cysts History of Any Multi-Drug Resistant Organisms: C-DIFF Date of last positivie culture/infection: 2014 MDRO Source:: Stool Past Surgical History: Section Additional Past Surgical History / Comment(s): Right lung resection 2016, L humerus double compound fx repair, hemrrhoidectomy, colonoscopy Past Anesthesia/Blood Transfusion Reactions: No Reported Reaction Past Psychological History: No Psychological Hx Reported Smoking Status: Current every day smoker (Patient smoked one pack every day for 30 years and then she is down to half a pack every day and now down to 3-5 cigarettes on a daily basis.) Past Alcohol Use History: None Reported Past Drug Use History: None Reported - Past Family History Mother Family Medical History: Coronary Artery Disease (CAD) (Mother 77-year-old with history of coronary artery disease post 6 stents placement also she developed some neurological illness with progressive weakness.) Father Family Medical History: Myocardial Infarction ([place]) (Father at age 45 from [place].) Brother(s) Family Medical History: Hypertension (Patient has one brother who has hypertension and kidney stones per) Sister(s) Family Medical History: No Reported History (Patient has one sister with gallstones.) Daughter(s) Family Medical History: No Reported History (Patient has 2 daughters no major me dical problems per he) Medications and Allergies Home Medications Medication Instructions Recorded Confirmed Type predniSONE 7.5 mg PO DIRECTED 04/01/18 08/22/18 History Albuterol Inhaler [Ventolin Hfa 1 - 2 puff INHALATION RT-Q6H PRN 08/22/18 08/22/18 History Inhaler] Amoxic-Pot Clav 500-125 mg 1 tab PO BID 08/22/18 08/22/18 History [Augmentin 500-125 mg] Bacillus Coagulans [Digestive 1 tab PO DAILY 08/22/18 08/22/18 History Advantage] Biotin 5,000 mcg PO DAILY 08/22/18 08/22/18 History Pantoprazole Sodium [Protonix] 40 mg PO DAILY 08/22/18 08/22/18 History predniSONE See Taper PO DAILY 08/22/18 08/22/18 History Allergies Allergy/AdvReac Type Severity Reaction Status Date / Time azathioprine [From Imuran] Allergy Vomiting Verified 08/22/18 17:36 codeine Allergy Nausea Verified 08/22/18 17:36 metronidazole [From Flagyl] Allergy Anaphylaxis Verified 08/22/18 17:36 Physical Exam Vitals: Vital Signs Temp Pulse Pulse Resp BP BP Pulse Ox 08/23/18 12:29 98 F 76 16 165/84 97 08/23/18 12:11 80 08/23/18 12:00 84 08/23/18 08:44 84 08/23/18 08:32 86 08/23/18 05:14 98.2 F 65 20 177/91 95 08/23/18 05:00 142/90 08/23/18 00:40 66 20 08/22/18 21:40 83 08/22/18 21:39 97.8 F 66 20 133/79 96 08/22/18 21:24 83 95 08/22/18 20:55 98.0 F 71 16 159/98 95 08/22/18 20:00 75 18 144/80 96 08/22/18 19:30 81 17 132/77 93 L 08/22/18 19:00 86 17 120/78 94 L 08/22/18 18:34 85 08/22/18 18:30 75 16 123/102 98 08/22/18 18:22 77 08/22/18 16:11 98.5 F 96 20 140/74 100 Intake and Output 08/22/18 08/23/18 08/23/18 22:59 06:59 14:59 Intake Total 590 590 Balance 590 590 Intake: Oral 590 590 Other: Voiding Method Toilet Toilet # Voids 2 Weight 73.482 kg GENERAL EXAM: Alert, active, comfortable in no apparent distress. On room air. HEAD: Normocephalic. EYES: Normal reaction of pupils, equal size. NOSE: Clear with pink turbinates. THROAT: No erythema or exudates. NECK: No masses, no JVD. CHEST: No chest wall deformity. LUNGS: Equal air entry with bilateral scattered rhonchi more so on the left. CVS: S1 and S2 normal with no audible murmur, regular rhythm. ABDOMEN: No hepatosplenomegaly, normal bowel sounds, no guarding or rigidity. SPINE: No scoliosis or deformity SKIN: No rashes CENTRAL NERVOUS SYSTEM: No focal deficits, tone is normal in all 4 extremities. EXTREMITIES: There is no peripheral edema. No clubbing, no cyanosis. Peripheral pulses are intact. Results - Laboratory Findings CBC and BMP: 08/22/18 17:52 08/22/18 17:52 PT/INR, D-dimer PT 9.4 sec (9.0-12.0) 08/22/18 17:52 INR 0.9 (<1.2) 08/22/18 17:52 Abnormal lab findings: Abnormal Labs 08/22/18 08/22/18 08/23/18 17:52 17:52 11:58 Plt Count 488 H Neutrophils # 9.0 H BUN 18 H Glucose 152 H POC Glucose (mg/dL) 202 H - Diagnostic Findings Chest x-ray: image reviewed Assessment and Plan Assessment: Impression: #1 Acute purulent tracheobronchitis, failed outpatient treatment. #2 History of Curtis's granulomatosis affecting the lungs, status post right middle and lower lobectomies in March 2015 in [place]. Now being followed at [facility] by Dr. Neri and receiving Rituxan every 6 months. Last dose May 2018. Maintained on prednisone 7.5 mg daily. #3 Chronic and ongoing going tobacco dependence at 1 pack per day for 30 years with possible component of chronic obstructive pulmonary disease. #4 Diabetes mellitus, type II. #5 Gastroesophageal reflux disease. #6 Previous history of stated myocardial infarction but clear cardiac catheterization. Plan: The patient was seen and evaluated by Dr. Duong. Chest x-ray and labs were reviewed. We'll continue with IV Solu-Medrol, bronchodilators, antibiotics. She is educated regarding the importance of complete smoking cessation. NicoDerm patch will be offered. She would like to establish with a yarn salvager here in town as well as continue her follow-ups at [facility]. We will continue to follow and make further recommendations based on her clinical status. I, the cosigning physician, performed a history & physical examination of the patient. Lungs sounds with bilateral scattered rhonchi. Maintaining good O2 s aturations in the 90s on room air. I discussed the assessment and plan of care with my nurse practitioner, Sun Cruz. I attest to the above note as dictated by her. Time with Patient: Greater than 30
[2018-08-23 17:07] LABS: Glucose,Whole Blood 143 mg/dL (75-99)
[2018-08-23] MEDS: HEPARIN SODIUM,PORCINE 5,000 UNIT/ML 1 ML VIAL SQ SCH ×2 (17:39→23:59)
[2018-08-23 19:59] LABS: Glucose,Whole Blood 196 mg/dL (75-99)
[2018-08-23] MEDS ORDERED: LEVOFLOXACIN 750MG-D5W PMX 750 MG in DEXTROSE/WATER 1 150ML.BAG IVPB SCH (20:00)
[2018-08-23] MEDS: guaiFENesin 600 MG TABLET.ER PO SCH (20:42)
[2018-08-23] MEDS: BUDESONIDE 1 MG/2 ML NEBU INHALATION SCH (20:46)
[2018-08-23] MEDS: LEVOFLOXACIN 750MG-D5W PMX 750 MG in DEXTROSE/WATER 1 150ML.BAG IVPB SCH (23:58)
[2018-08-24] MEDS ORDERED: ALPRAZolam 0.25 MG TAB PO PRN
[2018-08-24] MEDS: PIPERACILLIN-TAZOBACTAM 3.375 GM in SODIUM CHLORIDE 0.9% 100 ML IVPB SCH ×2 (01:58→10:00)
[2018-08-24 04:58] VITALS: BP 159/83; PULSE 73; RESP 16; TEMP 97.3
[2018-08-24] MEDS: methylPREDNISolone SOD SUCCI 125 MG/2 ML VIAL IV SCH (05:39)
[2018-08-24 06:54] LABS: Glucose,Whole Blood 136 mg/dL (75-99)
[2018-08-24] MEDS ORDERED: PANTOPRAZOLE 40 MG TABLET PO SCH (07:30)
[2018-08-24] MEDS: guaiFENesin 600 MG TABLET.ER PO SCH (07:32)
[2018-08-24] MEDS: HEPARIN SODIUM,PORCINE 5,000 UNIT/ML 1 ML VIAL SQ SCH (07:32)
[2018-08-24] MEDS: INSULIN ASPART (NovoLOG) 100 UNIT/ML VIAL SQ SCH (07:33)
[2018-08-24] MEDS ORDERED: LACTOBACILLUS ACIDOPH & BULGAR 1 EACH PACKET PO SCH (09:00)
[2018-08-24] MEDS ORDERED: NON-FORMULARY DRUG (Biotin [Biotin] 5,000 MCG) PO SCH (09:00)
[2018-08-24] MEDS: BUDESONIDE 1 MG/2 ML NEBU INHALATION SCH (09:27)
[2018-08-24] MEDS: IPRATROPIUM-ALBUTEROL 3 ML NEB INHALATION SCH (09:27)
[2018-08-24 09:55] LABS: Basophils % (A) 0 %; Eosinophils # (A) 0.1 k/uL (0-0.7); Eosinophils % (A) 1 %; HCT 38.9 % (34.0-46.0); HGB 12.1 gm/dL (11.4-16.0); Lymphocytes # (A) 0.5 k/uL (1.0-4.8); Lymphocytes % (A) 4 %; MCH 27.1 pg (25.0-35.0); MCHC 31.2 g/dL (31.0-37.0); Monocytes # (A) 0.2 k/uL (0-1.0); Monocytes % (A) 1 %; Neutrophils # (A) 11.5 k/uL (1.3-7.7); Neutrophils % (A) 93 %; Platelet Count 400 k/uL (150-450); RBC 4.48 m/uL (3.80-5.40); RDW 15.4 % (11.5-15.5); WBC 12.3 k/uL (3.8-10.6)
[2018-08-24 09:58] LABS: ALT 21 U/L (9-52); AST 13 U/L (14-36); Albumin 4.1 g/dL (3.5-5.0); Alkaline Phosphatase 49 U/L (38-126); Anion Gap 9 mmol/L; Blood Urea Nitrogen 19 mg/dL (7-17); Calcium 9.5 mg/dL (8.4-10.2); Carbon Dioxide 23 mmol/L (22-30); Chloride 109 mmol/L (98-107); Glucose 218 mg/dL (74-99); Potassium 4.1 mmol/L (3.5-5.1); Sodium 141 mmol/L (137-145); Total Bilirubin 0.4 mg/dL (0.2-1.3); Total Protein 6.2 g/dL (6.3-8.2)
[2018-08-24 11:13] LABS: Glucose,Whole Blood 126 mg/dL (75-99)
--- NOTE | 2018-08-24 12:01 | P.PN ---
Subjective Progress Note Date: 08/24/18 Principal diagnosis: Acute exacerbation of COPD and acute purulent tracheobronchitis. This is a very pleasant 58-year-old female patient who follows with Dr. Reyes as her primary care physician. 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 She had developed hemoptysis and shortness of breath. She had undergone a right mid and lower lung lobectomies. She states she had an 8 cm no chronic area and was hospitali zed for 21 days back in 2015 in [place]. She states the lung tissue was inconclusive for Curtis's disease but was given the diagnosis per her chief of vital statistics at that time. She moved here to [place] in February 2017. She follows with a actuary at [facility] Dr. Neri and she is receiving Rituxan every 6 months with the last dose in May 2018. She is maintained on prednisone 7.5 mg daily. Over the last month or so she's been having increasing shortness of breath cough with yellow productive sputum. She was treated with antibiotics and steroids in the outpatient setting without much improvement. She was admitted here through the emergency room yesterday. Chest x-ray showed some pleural thickening of the right lung apex and shift of the trachea to the right side. Left lung was clear. Follow-up chest x-ray today reveals chronic changes but no acute pulmonary process. She is seen in consultation on the regular medical floor. She is awake and alert in no acute distress. She is currently afebrile. Hemodynamically stable. Maintaining O2 saturations in the upper 90s on room air. Continues with a loose nonproductive cough. White count 10.3. Hemoglobin 12.9. Creatinine 0.70. She's been initiated and DuoNeb inhalations, Pulmicort inhalations, IV Solu-Medrol, antibiotics in the form of Zosyn and Levaquin. Reevaluated today on 08/24/2018, patient is feeling better, breathing easier, less cough and less wheezing less shortness of breath. Obviously she is responding to all the different bronchodilators antibiotics and steroids given to her yesterday. Patient is actually wondering if she could be discharged home today. I felt that the patient could be discharged home, but she needs to have a close follow-up and she needs to be discharged home on relatively high-dose of prednisone burst and taper. As a matter of fact I gave her a prescription for prednisone 40 mg tapered down over the next 16 days down to her usual dose of 7.5 mg daily. I also recommended that she remains on bronchodilators in the form of albuterol, DuoNeb, and Symbicort Objective - Vital Signs Vital signs: Vital Signs Temp 97.3 F L 08/24/18 04:58 Pulse 73 08/24/18 04:58 Resp 16 08/24/18 04:58 BP 159/83 08/24/18 04:58 Pulse Ox 96 08/24/18 04:58 Intake & Output 08/23/18 08/24/18 08/24/18 18:59 06:59 18:59 Intake Total 850 1180 Balance 850 1180 Intake: Oral 850 1180 Other: Voiding Method Toilet Toilet Toilet # Voids 2 2 - Exam Physical Exam: Revealed a 58-year-old female in no distress. Head: Atraumatic normocephalic. HEENT:[Neck is supple.] [No neck masses.] [No thyromegaly.] [No JVD.] Chest: [Diminished breath sound bilaterally, minimal wheezing on forced expiratory maneuver only. Cardiac Exam: [Normal S1 and S2, no S3 gallop, no murmur.] Abdomen: [Soft, nontender, no megaly, no rebound, no guarding, normal bowel sounds.] Extremities: [No clubbing, no edema, no cyanosis.] Neurological Exam: [No focal neurologic deficit.] Psychiatric: Normal mood affect and mental status examination. - Labs CBC & Chem 7: 08/24/18 08:26 08/24/18 08:26 Labs: Abnormal Lab Results - Last 24 Hours (Table) 08/23/18 08/23/18 08/23/18 Range/Units 11:58 17:05 19:57 WBC (3.8-10.6) k/uL Neutrophils # (1.3-7.7) k/uL Lymphocytes # (1.0-4.8) k/uL Chloride (98-107) mmol/L BUN (7-17) mg/dL Glucose (74-99) mg/dL POC Glucose (mg/dL) 202 H 143 H 196 H (75-99) mg/dL AST (14-36) U/L Total Protein (6.3-8.2) g/dL 08/24/18 08/24/18 08/24/18 Range/Units 06:53 08:26 08:26 WBC 12.3 H (3.8-10.6) k/uL Neutrophils # 11.5 H (1.3-7.7) k/uL Lymphocytes # 0.5 L (1.0-4.8) k/uL Chloride 109 H (98-107) mmol/L BUN 19 H (7-17) mg/dL Glucose 218 H (74-99) mg/dL POC Glucose (mg/dL) 136 H (75-99) mg/dL AST 13 L (14-36) U/L Total Protein 6.2 L (6.3-8.2) g/dL 08/24/18 Range/Units 11:12 WBC (3.8-10.6) k/uL Neutrophils # (1.3-7.7) k/uL Lymphocytes # (1.0-4.8) k/uL Chloride (98-107) mmol/L BUN (7-17) mg/dL Glucose (74-99) mg/dL POC Glucose (mg/dL) 126 H (75-99) mg/dL AST (14-36) U/L Total Protein (6.3-8.2) g/dL Microbiology - Last 24 Hours (Table) 08/22/18 17:52 Blood Culture - Preliminary Blood No Growth after 24 hours 08/23/18 00:38 Gram Stain - Preliminary Sputum Assessment and Plan Assessment: #1 acute exacerbation of COPD and purulent tracheobronchitis. 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 Now being followed at [facility] by Dr. Neri and receiving Rituxan every 6 months. Last dose May 2018. Maintained on prednisone 7.5 mg daily. #3 Chronic and ongoing going tobacco dependence at 1 pack per day for 30 years with possible component of chronic obstructive pulmonary disease. #4 Diabetes mellitus, type II. #5 Gastroesophageal reflux disease. #6 Previous history of stated myocardial infarction but clear cardiac catheterization. Recommendation: Agree with discharge planning, patient could be discharged home on Levaquin, prednisone 40 mg tapered over 16 days down to her usual dose of 7.5 mg daily, Symbicort, albuterol with Atrovent updrafts 4 times a day and when necessary, she can see me in the office in 2 weeks Time with Patient: Less than 30
--- NOTE | 2018-08-24 12:43 | P.DS ---
Providers Date of admission: 08/22/18 19:40 Expected date of discharge: 08/24/18 Attending physician: Connor Alvarez Consults: 08/22/18 19:38 Consult Physician Routine Consulting Provider: Sara Duong Consult Reason/Comments: dyspnea Do you want consulting provider notified?: Yes Primary care physician: Connor Alvarez [facility] Hospital Course: This is a 58-year-old female one of my patient with a pacemaker history significant for Curtis granulomatosis affecting her lung was under the care of Dr. 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, history of obesity, chronic tobacco use and dependence, diabetes mellitus type 2, patient was seen in my office about 2 weeks ago with symptoms of increased coughing and increased postnasal drip with a clear phlegm at that time she was advised to use Flonase nasal spray 1 puff twice a day along with Zyrtec 10 mg orally once every day she did not have any relief with that, she ended up seeing where she was prescribed Augmentin as well as prednisone burst and taper she came back to the to see her yesterday and she was complaining of increased shortness breath as well as increased coughing she was directed to the emergency department at [facility] where she had a chest x-ray that showed no acute of normalities some pleural reaction on the right side heart size was normal EKG normal sinus rhythm laboratory values were all normal but because of the presentation patient was admitted to the hospital for evaluation by pulmonary medicine she was started on IV antibiotic in the form of Levaquin and Zosyn as well as Pulmicort and she was placed on steroid as well pulmonary consultation is pending . 08/24: The patient states that the updrafts and steroids along with antibiotics seem to be helping her quite a bit. She states she has been seen by Dr. Clay this morning and he has cleared her for home. The patient's breathing is improved as well as wheezing. WBC 12.3, creatinine 0.73. Blood sugars running between 126 and 218. She has been afebrile, heart rate 73, blood pressure 159/83, pulse ox 96% on room air. Dr. Duong has provided her with prednisone taper, Symbicort, spacer prescriptions. Patient will be discharged home today in stable condition. Discharge diagnoses: 1. Acute respiratory insufficiency due to acute bronchitis with possible underlying COPD in a patient with a history of Neves granulomatosis. No respiratory failure. 2. History of Neves granulomatosis. 3. GERD. 4. Hyperglycemia secondary to steroids. No history of DM. 5. Chronic tobacco use and dependence. Discharge plan: home Impression and plan of care have been directed as dictated by the signing physician. Lanette Mccarthy nurse practitioner acting as scribe for signing physician. Patient Condition at Discharge: Good Plan - Discharge Summary Discharge Rx Participant: No New Discharge Prescriptions: New guaiFENesin [Mucinex] 600 mg PO Q12HR PRN tablet.er PRN Reason: Cough Continue Pantoprazole Sodium [Protonix] 40 mg PO DAILY Biotin 5,000 mcg PO DAILY Albuterol Inhaler [Ventolin Hfa Inhaler] 1 - 2 puff INHALATION RT-Q6H PRN PRN Reason: Shortness Of Breath Amoxic-Pot Clav 500-125 mg [Augmentin 500-125 mg] 1 tab PO BID Bacillus Coagulans [Digestive Advantage] 1 tab PO DAILY Discontinued predniSONE 7.5 mg PO DIRECTED predniSONE See Taper PO DAILY Discharge Medication List Albuterol Inhaler [Ventolin Hfa Inhaler] 1 - 2 puff INHALATION RT-Q6H PRN 08/22/18 [History] Amoxic-Pot Clav 500-125 mg [Augmentin 500-125 mg] 1 tab PO BID 08/22/18 [History] Bacillus Coagulans [Digestive Advantage] 1 tab PO DAILY 08/22/18 [History] Biotin 5,000 mcg PO DAILY 08/22/18 [History] Pantoprazole Sodium [Protonix] 40 mg PO DAILY 08/22/18 [History] guaiFENesin [Mucinex] 600 mg PO Q12HR PRN tablet.er 08/24/18 [Rx] Follow up Appointment(s)/Referral(s): Sara Duong MD [STAFF PHYSICIAN] - 2 Weeks (please schedule follow up appointment, call on Sunday to schedule) Connor Alvarez MD [Primary Care Provider] - 1 Week (please schedule your follow-up as directed when prdnisone dose is completed) Patient Instructions/Handouts: Prednisone (By mouth), Budesonide/Formoterol (By breathing), Dyspnea (DC) Activity/Diet/Wound Care/Special Instructions: Handwritten prescriptions for prednisone taper and Symbicort, were provided by Dr. Duong to the patient Discharge Disposition: HOME SELF-CARE
== END 2018-08-24 12:30 | disposition home or self-care (01) ==
LOC: EC 15:58 → 3NMEDONC 19:40
PROVIDERS: ADMIT Internal Medicine; ATTEND Internal Medicine
DX: J20.9 Acute bronchitis, unspecified (principal); M31.30 Wegener's granulomatosis without renal involvement; K21.9 Gastro-esophageal reflux disease without esophagitis; E11.65 Type 2 diabetes mellitus with hyperglycemia; T38.0X5A Adverse effect of glucocorticoids and synthetic analogues, initial encounter; E66.9 Obesity, unspecified; Z68.31 Body mass index [BMI] 31.0-31.9, adult; I25.2 Old myocardial infarction; Z90.2 Acquired absence of lung [part of]; Z92.21 Personal history of antineoplastic chemotherapy; Z79.899 Other long term (current) drug therapy; Z79.52 Long term (current) use of systemic steroids; Z88.1 Allergy status to other antibiotic agents; Z88.8 Allergy status to other drugs, medicaments and biological substances; Z88.5 Allergy status to narcotic agent; Z16.24 Resistance to multiple antibiotics; F17.210 Nicotine dependence, cigarettes, uncomplicated; Z82.49 Family history of ischemic heart disease and other diseases of the circulatory system
CPT/HCPCS: 96376 ×3; 96366 ×3; 96367; 96372 ×2; 96365; 96375; 99285; 36415; 94640 ×3; 93005; 83880; 80053 ×2; 85025 ×2; 85610; 85730; 87040; 87070; 87205; 71046 ×2; G0378 ×3; J2543 ×3; J1644 ×2; J2930 ×3; J1956 ×2

== ENCOUNTER → 2018-09-12 | Outpatient (CLI) | payer BC ==
--- NOTE | 2018-09-12 15:28 | US ---
EXAMINATION TYPE: US chest DATE OF EXAM: 09/12/2018 COMPARISON: Chest x-ray 09/06/2018 CLINICAL HISTORY: J90 Pleural effusion, not elsewhere classified. Pleural effusion TECHNIQUE: Targeted ultrasound of the posterior lower bilateral hemithoraces EXAM MEASUREMENTS: Right Pleural Effusion pocket size: 0 cm Left Pleural Effusion pocket size: 0 cm Right side NOT MARKED for possible thoracentesis outside the dept. Left side NOT MARKED for possible thoracentesis outside the dept. Pulmonologists are able to review the images in the patient?s EMR. Posterior chest was evaluated with ultrasound. IMPRESSIONS: No evident pleural effusion posteriorly, effusion may be loculated.
== END | disposition home or self-care (01) ==
LOC: RADUSWWP 10:24
PROVIDERS: ATTEND Internal Medicine
DX: J90 Pleural effusion, not elsewhere classified (principal)
CPT/HCPCS: 76604

== ENCOUNTER → 2018-12-23 | Outpatient (CLI) | payer BC ==
--- NOTE | 2018-12-23 12:23 | US ---
EXAMINATION TYPE: US renals and bladder DATE OF EXAM: 12/23/2018 COMPARISON: NONE CLINICAL HISTORY: R31.9 hematuria. Patient states having a hx of renal stones EXAM MEASUREMENTS: Right Kidney: 10.0 x 4.5 x 4.9 cm Left Kidney: 9.3 x 4.7 x 5.6 cm Right Kidney: lower pole cystic appearing lesion = 1.7 x 1.7 x 1.7 cm. Multiple echogenic foci visual ized, largest seen lower pole - 0.5 cm Left Kidney: Medial lower pole cystic appearing lesion = 1.6 x 1.1 x 1.5 cm. Multiple echogenic foci visualized, largest seen - 1.3 x 1.0 x 0.9 cm Bladder: mildly distended, wnl as visualized Left Jet seen There is no evidence for hydronephrosis at this point in time. The urinary bladder is anechoic. Bila teral ureteral jets are not seen. IMPRESSION: 1. No evidence of hydronephrosis. 2. Multiple bilateral nonobstructing renal calculi. 3. Bilateral renal lesions appear as benign cysts.
== END | disposition home or self-care (01) ==
LOC: RADUSMAIN 08:21
PROVIDERS: ATTEND Internal Medicine
DX: N20.0 Calculus of kidney (principal); N28.9 Disorder of kidney and ureter, unspecified
CPT/HCPCS: 76770

== ENCOUNTER 2019-01-05 19:42 | Inpatient (IN) | payer BC ==
[2019-01-05] MEDS ORDERED: LORazepam 2 MG/ML INJ IV STA (20:05)
[2019-01-05] MEDS ORDERED: PANTOPRAZOLE 40 MG/10 ML VIAL IVP STA (20:05)
[2019-01-05] MEDS ORDERED: SODIUM CHLORIDE 0.9% 1,000 ML IV STA ×2 (20:05)
[2019-01-05] MEDS ORDERED: ONDANSETRON 4 MG/2 ML VIAL IVP STA (20:05)
[2019-01-05] MEDS ORDERED: DEXAMETHASONE SOD PHOSPHATE 10 MG/ML 1 ML VIAL IV STA (20:23)
--- NOTE | 2019-01-05 20:26 | ED ---
Nausea/Vomiting/Diarrhea HPI - General Chief complaint: Nausea/Vomiting/Diarrhea Stated complaint: Vomiting Time Seen by Provider: 01/05/19 20:04 Source: patient, RN notes reviewed, old records reviewed Mode of arrival: ambulatory Limitations: no limitations - History of Present Illness Initial comments: This is a 4-year-old female the ER for evaluation today presented for evaluation of persistent nausea vomiting and diarrhea. Patient believes it may be related to an immunization flu vaccine that she just received. Patient does suffer from significant pneumatosis, is on daily steroids and unable to keep her steroids down secondary to vomiting last 2 days. The vomiting has increased retching has increased as well as diarrhea. Patient has diffuse body pains and aches and chills she didn't believe she had a fever but did not take her own temperature. Otherwise no known sick contacts no recent hospitalizations. Patient states she goes into see her easily she's been on steroids for quite some time MD complaint: nausea, vomiting, diarrhea -: hour(s) Description of Vomiting: watery Description of Diarrhea: water Associated Abdominal Pain: No Severity: severe Severity scale (1-10): 8 Quality: aching Consistency: constant Improves with: none Worsens with: eating Context: recent surgery/procedure (Patient receive flu shot) Associated Symptoms: myalgias, diaphoresis, loss of appetite, nausea/vomiting, weakness - Related Data Home Medications Medication Instructions Recorded Confirmed Albuterol Inhaler [Ventolin Hfa 1 - 2 puff INHALATION RT-Q6H PRN 08/22/18 01/05/19 Inhaler] Pantoprazole Sodium [Protonix] 40 mg PO DAILY 08/22/18 01/05/19 Budesonide/Formoterol Fumarate 2 puff INHALATION RT-BID 01/05/19 01/05/19 [Symbicort 160-4.5 Mcg Inhaler] Calcium Carbonate/Vitamin D3 1 tab PO BID 01/05/19 01/05/19 [Calcium 600-Vit D3 200 Tablet] Evolocumab [Repatha Syringe] 140 mg SQ Q14D 01/05/19 01/05/19 predniSONE 7.5 mg PO DAILY 01/05/19 01/05/19 Allergies Allergy/AdvReac Type Severity Reaction Status Date / Time azathioprine [From Imuran] Allergy Vomiting Verified 01/05/19 20:59 codeine Allergy Nausea Verified 01/05/19 20:59 metronidazole [From Flagyl] Allergy Anaphylaxis Verified 01/05/19 20:59 methotrexate AdvReac Unknown Verified 01/05/19 20:59 Review of Systems ROS Statement: Those systems with pertinent positive or pertinent negative responses have been documented in the HPI. ROS Other: All systems not noted in ROS Statement are negative. Past Medical History Past Medical History: Diabetes Mellitus, GERD/Reflux, Respiratory Disorder Additional Past Medical History / Comment(s): Wegners GPA 2015, Chemo for Wegners, endometriosis, ovarian cysts History of Any Multi-Drug Resistant Organisms: C-DIFF Date of last positivie culture/infection: 2014 MDRO Source:: Stool Past Surgical History: Section Additional Past Surgical History / Comment(s): Right lung resection 2016, L humerus double compound fx repair, hemrrhoidectomy, colonoscopy Past Anesthesia/Blood Transfusion Reactions: No Reported Reaction Past Psychological History: No Psychological Hx Reported Smoking Status: Former smoker Past Alcohol Use History: None Reported Past Drug Use History: None Reported - Past Family History Mother Family Medical History: Coronary Artery Disease (CAD) (Mother 77-year-old with history of coronary artery disease post 6 stents placement also she developed some neurological illness with progressive weakness.) Father Family Medical History: [place]ocardial Infarction ([place]) (Father at age 45 from [place].) Brother(s) Family Medical History: Hypertension (Patient has one brother who has h ypertension and kidney stones per) Sister(s) Family Medical History: No Reported History (Patient has one sister with gallstones.) Daughter(s) Family Medical History: No Reported History (Patient has 2 daughters no major medical problems per he) General Exam Limitations: no limitations General appearance: alert, in no apparent distress Head exam: Present: atraumatic, normocephalic, normal inspection Eye exam: Present: normal appearance, EOMI. Absent: scleral icterus, conjunctival injection, periorbital swelling ENT exam: Present: normal exam, mucous membranes dry Neck exam: Present: normal inspection. Absent: tenderness, meningismus, lymphadenopathy Respiratory exam: Present: normal lung sounds bilaterally. Absent: respiratory distress, wheezes, rales, rhonchi, stridor Cardiovascular Exam: Present: normal rhythm, tachycardia, normal heart sounds. Absent: systolic murmur, diastolic murmur, rubs, gallop, clicks GI/Abdominal exam: Present: soft, normal bowel sounds. Absent: distended, tenderness, guarding, rebound, rigid Extremities exam: Present: normal inspection, full ROM, normal capillary refill. Absent: tenderness, pedal edema, joint swelling, calf tenderness Back exam: Present: normal inspection Neurological exam: Present: alert, oriented X3, CN II-XII intact Psychiatric exam: Present: normal affect, normal mood Skin exam: Present: warm, dry, intact, normal color. Absent: rash Course Vital Signs 01/05/19 19:48 Temperature 99.1 F Pulse Rate 101 H Respiratory 20 Rate Blood Pressure 123/73 O2 Sat by Pulse 95 Oximetry - Reevaluation(s) Reevaluation #1: 01/05/19 20:25 Medical records reviewed Medical Decision Making - Medical Decision Making 58 female the ER for evaluation patient presents today for eversion persistent nausea vomiting diarrhea positive pancreatitis. Patient will be admitted for IV hydration and symptom management - Lab Data Result diagrams: 01/05/19 20:33 01/05/19 20:33 Lab Results 01/05/19 01/05/19 01/05/19 Range/Units 20:33 20:33 20:33 WBC 21.4 H (3.8-10.6) k/uL RBC 4.45 (3.80-5.40) m/uL Hgb 13.2 (11.4-16.0) gm/dL Hct 38.9 (34.0-46.0) % MCV 87.4 (80.0-100.0) fL MCH 29.7 (25.0-35.0) pg MCHC 33.9 (31.0-37.0) g/dL RDW 14.4 (11.5-15.5) % Plt Count 348 (150-450) k/uL Neutrophils % 86 % Lymphocytes % 8 % Monocytes % 4 % Eosinophils % 0 % Basophils % 1 % Neutrophils # 18.4 H (1.3-7.7) k/uL Lymphocytes # 1.7 (1.0-4.8) k/uL Monocytes # 0.8 (0-1.0) k/uL Eosinophils # 0.1 (0-0.7) k/uL Basophils # 0.1 (0-0.2) k/uL PT (9.0-12.0) sec INR (<1.2) APTT (22.0-30.0) sec Sodium 137 (137-145) mmol/L Potassium 3.5 (3.5-5.1) mmol/L Chloride 96 L (98-107) mmol/L Carbon Dioxide 23 (22-30) mmol/L Anion Gap 18 mmol/L BUN 21 H (7-17) mg/dL Creatinine 1.11 H (0.52-1.04) mg/dL Est GFR (CKD-EPI)AfAm 63 (>60 ml/min/1.73 sqM) Est GFR (CKD-EPI)NonAf 54 (>60 ml/min/1.73 sqM) Glucose 120 H (74-99) mg/dL Plasma Lactic Acid Jacobo 1.3 (0.7-2.0) mmol/L Calcium 8.8 (8.4-10.2) mg/dL Phosphorus 2.4 L (2.5-4.5) mg/dL Magnesium 2.3 (1.6-2.3) mg/dL Total Bilirubin 0.7 (0.2-1.3) mg/dL AST 24 (14-36) U/L ALT 49 (9-52) U/L Alkaline Phosphatase 94 (38-126) U/L Creatine Kinase 72 (30-135) U/L Troponin I (0.000-0.034) ng/mL Total Protein 7.6 (6.3-8.2) g/dL Albumin 4.6 (3.5-5.0) g/dL Lipase 966 H (23-300) U/L Urine Color Urine Appearance (Clear) Urine pH (5.0-8.0) Ur Specific [place] (1.001-1.035) Urine Protein (Negative) Urine Glucose (UA) (Negative) Urine Ketones (Negative) Urine Blood (Negative) Urine Nitrite (Negative) Urine Bilirubin (Negative) Urine Urobilinogen (<2.0) mg/dL Ur Leukocyte Esterase (Negative) 01/05/19 01/05/19 01/05/19 Range/Units 20:33 20:33 22:30 WBC (3.8-10.6) k/uL RBC (3.80-5.40) m/uL Hgb (11.4-16.0) gm/dL Hct (34.0-46.0) % MCV (80.0-100.0) fL MCH (25.0-35.0) pg MCHC (31.0-37.0) g/dL RDW (11.5-15.5) % Plt Count (150-450) k/uL Neutrophils % % Lymphocytes % % Monocytes % % Eosinophils % % Basophils % % Neutrophils # (1.3-7.7) k/uL Lymphocytes # (1.0-4.8) k/uL Monocytes # (0-1.0) k/uL Eosinophils # (0-0.7) k/uL Basophils # (0-0.2) k/uL PT 9.5 (9.0-12.0) sec INR 0.9 (<1.2) APTT 19.6 L (22.0-30.0) sec Sodium (137-145) mmol/L Potassium (3.5-5.1) mmol/L Chloride (98-107) mmol/L Carbon Dioxide (22-30) mmol/L Anion Gap mmol/L BUN (7-17) mg/dL Creatinine (0.52-1.04) mg/dL Est GFR (CKD-EPI)AfAm (>60 ml/min/1.73 sqM) Est GFR (CKD-EPI)NonAf (>60 ml/min/1.73 sqM) Glucose (74-99) mg/dL Plasma Lactic Acid Jacobo (0.7-2.0) mmol/L Calcium (8.4-10.2) mg/dL Phosphorus (2.5-4.5) mg/dL Magnesium (1.6-2.3) mg/dL Total Bilirubin (0.2-1.3) mg/dL AST (14-36) U/L ALT (9-52) U/L Alkaline Phosphatase (38-126) U/L Creatine Kinase (30-135) U/L Troponin I <0.012 (0.000-0.034) ng/mL Total Protein (6.3-8.2) g/dL Albumin (3.5-5.0) g/dL Lipase (23-300) U/L Urine Color Light Yellow Urine Appearance Clear (Clear) Urine pH 5.5 (5.0-8.0) Ur Specific [place] 1.005 (1.001-1.035) Urine Protein Negative (Negative) Urine Glucose (UA) Negative (Negative) Urine Ketones 1+ H (Negative) Urine Blood Negative (Negative) Urine Nitrite Negative (Negative) Urine Bilirubin Negative (Negative) Urine Urobilinogen <2.0 (<2.0) mg/dL Ur Leukocyte Esterase Negative (Negative) - EKG Data -: EKG Interpreted by Me (EKG shows sinus rhythm rate of 90, IN 1:30, QRS 76, QTc 464) Disposition Clinical Impression: Dehydration, Gastroenteritis, Acute pancreatitis Disposition: ADMITTED IP TO THIS HOSP Condition: Fair Is patient prescribed a controlled substance at d/c from ED?: No Referrals: Connor Alvarez MD [Primary Care Provider] - 1-2 days
[2019-01-05 20:46] LABS: Basophils # (A) 0.1 k/uL (0-0.2); Basophils % (A) 1 %; Eosinophils # (A) 0.1 k/uL (0-0.7); Eosinophils % (A) 0 %; HCT 38.9 % (34.0-46.0); HGB 13.2 gm/dL (11.4-16.0); Lymphocytes # (A) 1.7 k/uL (1.0-4.8); Lymphocytes % (A) 8 %; MCH 29.7 pg (25.0-35.0); MCHC 33.9 g/dL (31.0-37.0); MCV 87.4 fL (80.0-100.0); Mean Platelet Volume 5.8; Monocytes # (A) 0.8 k/uL (0-1.0); Monocytes % (A) 4 %; Neutrophils # (A) 18.4 k/uL (1.3-7.7); Neutrophils % (A) 86 %; Platelet Count 348 k/uL (150-450); RBC 4.45 m/uL (3.80-5.40); RDW 14.4 % (11.5-15.5); WBC 21.4 k/uL (3.8-10.6)
[2019-01-05 20:53] LABS: Albumin 4.6 g/dL (3.5-5.0); Calcium 8.8 mg/dL (8.4-10.2); Magnesium 2.3 mg/dL (1.6-2.3); Phosphorus 2.4 mg/dL (2.5-4.5); Potassium 3.5 mmol/L (3.5-5.1); Total Bilirubin 0.7 mg/dL (0.2-1.3); Total Protein 7.6 g/dL (6.3-8.2)
[2019-01-05 21:22] LABS: INR 0.9 (<1.2); Prothrombin Time 9.5 sec (9.0-12.0)
[2019-01-05 21:23] LABS: Partial Thromboplastin Time 19.6 sec (22.0-30.0)
[2019-01-05 22:44] LABS: Appearance,Urine Clear (Clear); Bilirubin,Urine Negative (Negative); Blood,Urine Negative (Negative); Color,Urine Light Yellow; Glucose,Urine (UA) Negative (Negative); Ketones,Urine 1+ (Negative); Leukocyte Esterase,Urine Negative (Negative); Nitrite,Urine Negative (Negative); PH, Urine 5.5 (5.0-8.0); Protein,Urine Negative (Negative); Specific Gravity,Urine 1.005 (1.001-1.035); Urobilinogen,Urine <2.0 mg/dL (<2.0)
[2019-01-05] MEDS ORDERED: SODIUM CHLORIDE 0.9% 1,000 ML IV ONE (22:50)
[2019-01-05] MEDS ORDERED: ONDANSETRON 4 MG/2 ML VIAL IVP PRN (22:51)
[2019-01-05] MEDS ORDERED: LORazepam 2 MG/ML INJ IV PRN (22:51)
[2019-01-06] MEDS: PANTOPRAZOLE 40 MG/10 ML VIAL IVP SCH (09:50)
[2019-01-06] MEDS ORDERED: ALBUTEROL NEBULIZED 2.5 MG/3 ML INHALATION PRN (10:14)
[2019-01-06] MEDS ORDERED: EVOLOCUMAB 140 MG SQ SCH (10:15)
[2019-01-06] MEDS ORDERED: CALCIUM CARB-VIT D 500MG-200UN 1 EACH TAB PO SCH (11:00)
[2019-01-06] MEDS ORDERED: predniSONE 5 MG TAB PO SCH (11:00)
[2019-01-06] MEDS: SYMBICORT 160-4.5 MCG INHALER INHALATION SCH ×2 (11:05→19:50)
[2019-01-06] MEDS ORDERED: RX INFO: IV CONTRAST WAS GIVEN 1 EACH MISC MISCELLANE PRN (11:39)
[2019-01-06] MEDS ORDERED: DOXYCYCLINE 100 MG CAP PO SCH (11:45)
[2019-01-06] MEDS: CALCIUM CARB-VIT D 500MG-200UN 1 EACH TAB PO SCH ×2 (12:21→18:47)
--- NOTE | 2019-01-06 13:27 | CT ---
EXAMINATION TYPE: CT chest w con DATE OF EXAM: 01/06/2019 COMPARISON: 12/13/2017 HISTORY: cough CT DLP: 365.9 mGycm, Automated exposure control for dose reduction was used. CONTRAST: Performed injected with 100 mL of Isovue 300. TECHNIQUE: Axial images were obtained at 5 mm thick sections. Reconstructed images are reviewed on [employer] computer in the coronal plane. FINDINGS: Portion of the thyroid visualized is normal. There is a focal area of increased density within the left posterior mid lung which is nonspecific. U nderlying mass may be present. Measuring 2.3 x 1.8 cm. Series 201 image 35. Findings are new from 201 8. An infectious etiology could be considered. Developing mass or neoplasm should be considered. No enlarged mediastinal or hilar adenopathy is evident. The ascending aorta diameter at the level o f the main pulmonary artery is 3.0 cm. The main pulmonary artery diameter at the bifurcation is 2.[address] sections are obtained through the upper abdomen. There is a nonobstructing renal stone in the superior pole left kidney measuring 0.5 cm. A couple punctate additional calcifications may be pr esent. Some moderate fatty infiltration liver may be present. IMPRESSIONS: 1. Focal increased density posterior left mid lung with some solid-appearing irregular component cent rally. Pneumonia could be within the differential. Neoplasm is not excluded. Follow-up to clearing is recommended. A Yellow level critical message alert has been initiated for Connor Alvarez MD via the [facility] on 01/06/2019 1:24 PM. This message alert has been sent to Connor Alvarez MD vi a the preferences provided by the clinician for the receipt of Radiology Critical Findings. Message I D [id number].
[2019-01-06] MEDS ORDERED: PHENYLEPHRINE 0.25% NASAL SPRA 1 SPRAY/ML NASAL PRN (14:55)
[2019-01-06] MEDS ORDERED: IPRATROPIUM-ALBUTEROL 3 ML NEB INHALATION PRN (15:16)
--- NOTE | 2019-01-06 15:24 | P.HPIM ---
History of Present Illness H&P Date: 01/06/19 Chief Complaint: Abdominal pain, nausea, vomiting This is a 58-year-old female patient of Dr. 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 Neri at [facility] and Dr. Duong locally 8, history of right lower lobe resection due to Curtis back in 2014, history of obesity, chronic tobacco use and dependence-quit in July 2018, diabetes mellitus type 2. Patient states that she received influenza vaccine and Repatha injection. On Sunday, she started having fever, vomiting and diarrhea that continued until last evening. She complains of right-sided back soreness, no abdominal pain. She states she's had bloating every time she eats. She denies any alcohol intake at all. She states she has nocturia and voids at least 5 times during the night and only trickles during the day. She does have history of renal stones and underwent lithotripsy at [facility]. She stopped smoking completely in July of this year and prior to that she was down to 1 cigarette per day. She is complaining of sputum that is yellow and productive cough that is going on most of the year. Patient came into [facility] emergency center for evaluation. Vital signs were stable, white count 21.4, BUN 21 creatinine 1.11, blood sugar 120. Lactic acid 1.3, lipase 966. Troponin was negative. Urinalysis clear with nitrate and leukoesterase negative. EKG was sinus rhythm with no acute ST changes. In the ER, patient received 2 L of IV fluid, Zofran, Protonix, Decadron and was admitted to the [facility] floor. Consults are in place for pulmonary medicine and consult was admitted for ENT for epistaxis. Patient has had ongoing problems with epistaxis this afternoon had large clots. Review of Systems Constitutional: Reports anorexia, Reports chills, Reports fever, Reports poor appetite Eyes: denies blurred vision, denies pain Ears, nose, mouth and throat: Reports epistaxis, Reports hoarseness, Reports nasal congestion, Reports nasal discharge, Denies dental pain, Denies mouth pain, Denies sore throat, Denies vertigo Cardiovascular: Denies chest pain, Denies decreased exercise tolerance, Denies dyspnea on exertion, Denies edema, Denies irregular heart beat, Denies leg edema, Denies lightheadedness, Denies syncope Respiratory: Reports cough, Reports cough with sputum, Reports excessive sputum, Reports respiratory infections, Denies dyspnea, Denies hemoptysis, Denies home oxygen, Denies wheezing Gastrointestinal: Reports diarrhea, Reports nausea, Reports vomiting, Denies abdominal pain, Denies constipation Genitourinary: Reports flank pain, Reports nocturia, Denies urgency, Denies urinary frequency Musculoskeletal: Denies frequent falls, Denies gait dysfunction, Denies muscle weakness, Denies myalgias Integumentary: Denies pruritus, Denies rash, Denies wounds Neurological: Denies numbness, Denies vertigo, Denies weakness Psychiatric: Denies anxiety, Denies depression Endocrine: Denies fatigue, Denies weight change Past Medical History Past Medical History: Diabetes Mellitus, GERD/Reflux, Myocardial Infarction ([place]), Respiratory Disorder Additional Past Medical History / Comment(s): Wegners GPA 2014, Chemo for Wegners, endometriosis, ovarian cysts, STATES SILENT CO 2015 AND BORDERLINE DM DUE TO CHRONIC PREDNISONE USE Last Myocardial Infarction Date:: 2015 History of Any Multi-Drug Resistant Organisms: C-DIFF Date of last positivie culture/infection: 2014 MDRO Source:: Stool Past Surgical History: Section Additional Past Surgical History / Comment(s): Right lung resection 2016, L humerus double compound fx repair, hemrrhoidectomy, colonoscopy Past Anesthesia/Blood Transfusion Reactions: No Reported Reaction Past Psychological History: No Psychological Hx Reported Smoking Status: Former smoker Past Alcohol Use History: None Reported Additional Past Alcohol Use History / Comment(s): Patient was a smoker one pack per day for 30 years and quit in July 2018. No alcohol use. No vaping. Past Drug Use History: None Reported - Past Family History Mother Family Medical History: Coronary Artery Disease (CAD) Additional Family Medical History / Comment(s): SIX STENTS Father Family Medical History: Myocardial Infarction ([place]) Additional Family Medical History / Comment(s): Father at age 45 from myocardial infarction. Brother(s) Family Medical History: Hypertension Additional Family Medical History / Comment(s): Patient has 1 brother with hypertension and kidney stones. Sister(s) Family Medical History: No Reported History Additional Family Medical History / Comment(s): Patient has one sister with CHRONIC HYPERCOHDRIA AND GALLSTONES Daughter(s) Family Medical History: No Reported History Additional Family Medical History / Comment(s): Patient has 2 daughters with no major medical problems. Medications and Allergies Home Medications Medication Instructions Recorded Confirmed Type Albuterol Inhaler [Ventolin Hfa 1 - 2 puff INHALATION RT-Q6H PRN 08/22/18 01/05/19 History Inhaler] Pantoprazole Sodium [Protonix] 40 mg PO DAILY 08/22/18 01/05/19 History Budesonide/Formoterol Fumarate 2 puff INHALATION RT-BID 01/05/19 01/05/19 History [Symbicort 160-4.5 Mcg Inhaler] Calcium Carbonate/Vitamin D3 1 tab PO BID 01/05/19 01/05/19 History [Calcium 600-Vit D3 200 Tablet] Evolocumab [Repatha Syringe] 140 mg SQ Q14D 01/05/19 01/05/19 History predniSONE 7.5 mg PO DAILY 01/05/19 01/05/19 History Allergies Allergy/AdvReac Type Severity Reaction Status Date / Time azathioprine [From Imuran] Allergy Vomiting Verified 01/06/19 18:04 codeine Allergy Nausea Verified 01/06/19 18:04 metronidazole [From Flagyl] Allergy Anaphylaxis Verified 01/06/19 18:04 methotrexate AdvReac Unknown Verified 01/06/19 18:04 Physical Exam Vitals: Vital Signs Temp Pulse Pulse Resp BP BP Pulse Ox 01/06/19 07:51 93 L 01/06/19 07:00 98.6 F 82 16 124/78 98 01/06/19 01:00 98.8 F 84 16 106/67 95 01/06/19 00:00 84 16 01/05/19 23:00 93 18 135/64 95 01/05/19 22:00 89 18 133/75 95 01/05/19 21:00 90 20 149/85 95 01/05/19 19:48 99.1 F 101 H 20 123/73 95 Intake and Output 01/05/19 01/06/19 01/06/19 22:59 06:59 14:59 Other: Voiding Method Toilet # Voids 1 Weight 74.843 kg - Constitutional General appearance: mild distress, obese - EENT Eyes: anicteric sclerae, EOMI, PERRLA, no ptosis, no scleral icterus, normal appearance ENT: hearing grossly normal, NA/AT, normal oropharynx, no thrush Ears: bilateral: normal - Neck Neck: no lymphadenopathy, normal ROM, no rigidity, no stridor, no thyromegaly Carotids: bilateral: upstroke normal Thyroid: bilateral: normal size - Respiratory Respiratory: bilateral: diminished, wheezing, prolonged expiration, negative: dullness, rales, rhonchi Frequent moist cough - Cardiovascular Rhythm: regular Heart sounds: normal: S1, S2 Abnormal Heart Sounds: no systolic murmur, no rub, no S3 Gallop, no S4 Gallop, no click - Gastrointestinal General gastrointestinal: normal bowel sounds, soft, right upper quadrant tenderness, no umbilical hernia, no ventral hernia - Integumentary Integumentary: normal, normal turgor - Neurologic Neurologic: CNII-XII intact - Musculoskeletal Musculoskeletal: generalized weakness - Psychiatric Psychiatric: A&O x's 3, appropriate affect, intact judgment & insight Results CBC & Chem 7: 01/07/19 06:33 01/07/19 06:33 Labs: Abnormal Lab Results - Last 24 Hours (Table) 01/05/19 01/05/19 01/05/19 Range/Units 20:33 20:33 20:33 WBC 21.4 H (3.8-10.6) k/uL Neutrophils # 18.4 H (1.3-7.7) k/uL APTT 19.6 L (22.0-30.0) sec Chloride 96 L (98-107) mmol/L BUN 21 H (7-17) mg/dL Creatinine 1.11 H (0.52-1.04) mg/dL Glucose 120 H (74-99) mg/dL Phosphorus 2.4 L (2.5-4.5) mg/dL Lipase 966 H (23-300) U/L Urine Ketones (Negative) 01/05/19 Range/Units 22:30 WBC (3.8-10.6) k/uL Neutrophils # (1.3-7.7) k/uL APTT (22.0-30.0) sec Chloride (98-107) mmol/L BUN (7-17) mg/dL Creatinine (0.52-1.04) mg/dL Glucose (74-99) mg/dL Phosphorus (2.5-4.5) mg/dL Lipase (23-300) U/L Urine Ketones 1+ H (Negative) Thrombosis Risk Factor Assmnt - Choose All That Apply Each Factor Represents 1 point: Acute CO, Age 41-60 years, Obesity (BMI >25) Other Risk Factors: No Other congenital or acquired thrombophilia - If yes, enter type in comment: No Thrombosis Risk Factor Assessment Total Risk Factor Score: 3 Thrombosis Risk Factor Assessment Level: Moderate Risk Assessment and Plan Plan: 1. Acute vomiting and diarrhea with dehydration secondary to gastroenteritis, resolved. Status post IV fluids and Zofran. 2. Acute pancreatitis, resolved. Abdominal ultrasound ordered. 3. COPD with chronic bronchitis, rule out pneumonia. Patient complains of significant cough with yellow sputum production. CAT scan of the chest ordered. Consult with Dr. Damico. Doxycycline 100 mg twice daily, albuterol every 6 hours as needed and Symbicort twice daily, oral prednisone. 4. Acute epistaxis. David-Synephrine added and consult with ENT. 5. History of Curtis granulomatosis. Continue patient prednisone 7.5 mg daily. 6. GERD. Continue Protonix 40 mg every day. 4. Hyperglycemia. Monitor the patient blood sugars. 5. Chronic tobacco use and dependence--patient quit July 2018. 6. DVT prophylaxis. SCDs and KRYSTAL hose. 7. GI prophylaxis. Continue patient on Protonix 40 mg orally once every day. 8. Admit to inpatient. Estimated length of stay 2 midnights per 9. Patient's full code. Discharge Plan: Return home Impression and plan of care have been directed as dictated by the signing physician. Lanette Mccarthy nurse practitioner acting as scribe for signing physician.
[2019-01-06] MEDS ORDERED: LEVOFLOXACIN 750MG-D5W PMX 750 MG in DEXTROSE/WATER 1 150ML.BAG IVPB SCH (16:00)
--- NOTE | 2019-01-06 17:11 | P.CNPUL ---
History of Present Illness Consult date: 01/06/19 Reason for consult: pneumonia History of present illness: This is a 58-year-old female patient who used to live in [place] back in 2016 and the patient has moved to [place] approximately 3 years ago. This patient has history of Curtis's granulomatosis. She had a history of severe right lung infection possible empyema and the patient underwent bilobectomy involving the resection of the right middle lobe and right lower lobe and this was done in a hospital in [place]. 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 The patient was initially treated with a combination of Imuran and later on methotrexate and currently she is receiving Rituxan infusions through Dr. Daron willett at [facility]. The patient also does take in 7.5 mg of prednisone a daily basis. The patient does not recall any skin or kidney involvement with Curtis's, pneumatosis. She is obese and she has a BMI of 32. She has chronic smoker in she quit smoking in July 2018 and she has underlying COPD. She has diabetes mellitus type 2. The patient received her influenza vaccination and she also received that he Repatha injection. Following that the patient started having some fever, generalized weakness, nausea, vomiting, and diarrhea. She also complained of congested cough and she was producing yellowish sputum. For that reason, she ended up coming into the hospital. The patient had a CT scan of the chest that showed a left lower lobe consolidation consistent with pneumonia. Note that her lipase level was also elevated at 966 and subsequent levels normalized. The patient's white cell count was 21.4. The patient was started on doxycycline. She is clinically feeling slightly better compared to yesterday. Abdominal my evaluation, she was having some epistaxis for which pressure was applied and epistaxis.. Apparently the patient passed some large of blood clots at the time of her epistaxis. No altered mentation. No skin lesions. No pleurisy. No hemoptysis. Her nausea and vomiting has subsided. No other significant events otherwise for now. She is known to have also renal stones that she has undergone lithotripsy at [facility]. Review of Systems Constitutional: Reports anorexia, Reports chills, Reports fever, Reports poor appetite Ears, nose, mouth and throat: Reports epistaxis, Denies dental pain, Denies mouth pain, Denies vertigo, it's positive for epistaxis Cardiovascular: Denies chest pain, Denies decreased exercise tolerance, Denies dyspnea on exertion, Denies edema, Denies irregular heart beat, Denies leg edema, Denies lightheadedness, Denies syncope Respiratory: Reports cough, Reports cough with sputum, Reports excessive sputum, Reports respiratory infections, Denies dyspnea, Denies hemoptysis, Denies home oxygen, Denies wheezing Gastrointestinal: Reports diarrhea, Reports nausea, Reports vomiting, Denies abdominal pain, Denies constipation Genitourinary: Reports flank pain, Reports nocturia, Denies urgency, Denies urinary frequency Musculoskeletal: Denies frequent falls, Denies gait dysfunction, Denies muscle weakness, Denies myalgias Integumentary: Denies pruritus, Denies rash, Denies wounds Neurological: Denies numbness, Denies vertigo, Denies weakness Psychiatric: Denies anxiety, Denies depression Endocrine: Denies fatigue, Denies weight change Past Medical History Past Medical History: Diabetes Mellitus, GERD/Reflux, Myocardial Infarction (ND), Respiratory Disorder Additional Past Medical History / Comment(s): History of Curtis's granulomatosis diagnosed in 2016, endometriosis, ovarian cysts, coronary artery disease with previous ND in 2016, chronic immunosuppression and steroid use, COPD, diabetes mellitus, acid reflux Last Myocardial Infarction Date:: 2016 History of Any Multi-Drug Resistant Organisms: C-DIFF Date of last positivie culture/infection: 2014 MDRO Source:: Stool Past Surgical History: Section Additional Past Surgical History / Comment(s): Right lung bilobectomy probably the right lower lobe in the right middle lobe resection 2015, L humerus double compound fx repair, hemrrhoidectomy, colonoscopy Past Anesthesia/Blood Transfusion Reactions: No Reported Reaction Past Psychological History: No Psychological Hx Reported Smoking Status: Former smoker Past Alcohol Use History: None Reported Additional Past Alcohol Use History / Comment(s): Patient was a smoker one pack per day for 30 years and quit in July 2018. No alcohol use. No vaping. Past Drug Use History: None Reported - Past Family History Mother Family Medical History: Coronary Artery Disease (CAD) Additional Family Medical History / Comment(s): SIX STENTS Father Family Medical History: Myocardial Infarction (ND) Brother(s) Family Medical History: Hypertension Additional Family Medical History / Comment(s): CHRONIC KIDNEY STONES Sister(s) Family Medical History: No Reported History Additional Family Medical History / Comment(s): CHRONIC HYPERCOHDRIA AND GALLSTONES Daughter(s) Family Medical History: No Reported History Medications and Allergies Home Medications Medication Instructions Recorded Confirmed Type Albuterol Inhaler [Ventolin Hfa 1 - 2 puff INHALATION RT-Q6H PRN 08/22/18 01/05/19 History Inhaler] Pantoprazole Sodium [Protonix] 40 mg PO DAILY 08/22/18 01/05/19 History Budesonide/Formoterol Fumarate 2 puff INHALATION RT-BID 01/05/19 01/05/19 History [Symbicort 160-4.5 Mcg Inhaler] Calcium Carbonate/Vitamin D3 1 tab PO BID 01/05/19 01/05/19 History [Calcium 600-Vit D3 200 Tablet] Evolocumab [Repatha Syringe] 140 mg SQ Q14D 01/05/19 01/05/19 History predniSONE 7.5 mg PO DAILY 01/05/19 01/05/19 History Allergies Allergy/AdvReac Type Severity Reaction Status Date / Time azathioprine [From Imuran] Allergy Vomiting Verified 01/05/19 20:59 codeine Allergy Nausea Verified 01/05/19 20:59 metronidazole [From Flagyl] Allergy Anaphylaxis Verified 01/05/19 20:59 methotrexate AdvReac Unknown Verified 01/05/19 20:59 Physical Exam Vitals: Vital Signs Temp Pulse Pulse Resp BP BP Pulse Ox 01/06/19 07:51 93 L 01/06/19 07:00 98.6 F 82 16 124/78 98 01/06/19 01:00 98.8 F 84 16 106/67 95 01/06/19 00:00 84 16 01/05/19 23:00 93 18 135/64 95 01/05/19 22:00 89 18 133/75 95 01/05/19 21:00 90 20 149/85 95 01/05/19 19:48 99.1 F 101 H 20 123/73 95 Intake and Output 01/06/19 01/06/19 01/06/19 06:59 14:59 22:59 Intake Total 296 Balance 296 Intake: Oral 296 Other: Voiding Method Toilet # Voids 1 - Constitutional General appearance: mild distress, obese, with some cushingoid features related to chronic steroid use - EENT Eyes: anicteric sclerae, EOMI, PERRLA, no ptosis, no scleral icterus, normal appearance ENT: hearing grossly normal, NA/AT, normal oropharynx, no thrush Ears: bilateral: normal - Neck Neck: no lymphadenopathy, normal ROM, no rigidity, no stridor, no thyromegaly Carotids: bilateral: upstroke normal Thyroid: bilateral: normal size - Respiratory Respiratory: bilateral: diminished, wheezing, prolonged expiration, negative: dullness, rales, rhonchi Frequent moist cough - Cardiovascular Rhythm: regular Heart sounds: normal: S1, S2 Abnormal Heart Sounds: no systolic murmur, no rub, no S3 Gallop, no S4 Gallop, no click - Gastrointestinal General gastrointestinal: normal bowel sounds, soft, right upper quadrant tenderness, no umbilical hernia, no ventral hernia - Integumentary Integumentary: normal, normal turgor - Neurologic Neurologic: CNII-XII intact - Musculoskeletal Musculoskeletal: generalized weakness - Psychiatric Psychiatric: A&O x's 3, appropriate affect, intact judgment & insight Results - Laboratory Findings CBC and BMP: 01/05/19 20:33 01/05/19 20:33 PT/INR, D-dimer PT 9.5 sec (9.0-12.0) 01/05/19 20:33 INR 0.9 (<1.2) 01/05/19 20:33 Abnormal lab findings: Abnormal Labs 01/05/19 01/05/19 01/05/19 20:33 20:33 20:33 WBC 21.4 H Neutrophils # 18.4 H APTT 19.6 L Chloride 96 L BUN 21 H Creatinine 1.11 H Glucose 120 H Phosphorus 2.4 L Lipase 966 H Urine Ketones 01/05/19 22:30 WBC Neutrophils # APTT Chloride BUN Creatinine Glucose Phosphorus Lipase Urine Ketones 1+ H - Diagnostic Findings CT scan - chest: image reviewed Assessment and Plan Plan: 1 left lower lobe pneumonia involving the posterior segment of the left lower lobe as the patient has an area of groundglass/consolidation measuring 2.3 x 1.8 cm, rule out bacterial pneumonia, rule out viral pneumonia. Noted the patient is immunosuppressed with a combination of Rituxan and prednisone 2 acute nausea and emesis and questionable component of pancreatitis, could be viral/infectious in nature, improved 3 COPD exacerbation secondary to above 4 Curtis's granulomatosis maintained on immunosuppressive treatment with a combination of prednisone and Rituxan 5 cushingoid features related to chronic steroid use 6 diabetes mellitus 7 coronary artery disease with previous ND 8 acid reflux 9 ovarian cyst 10 diabetes mellitus Plan We'll need to cover this patient with broad-spectrum antibiotics. The patient is subject to approach her sick infections and broad-spectrum gram-negative and gram-positive bacteria. For that reason, we'll cover the patient with accommodation of cefepime and Levaquin for now pending further sputum cultures and blood cultures. Monitor nausea and emesis. Hydrate the patient. Subjective patient IV Solu Medrol. Continue DuoNeb the right she was [id number]. Ultrasound of the gallbladder and abdomen in view of the elevation of the lipase. Rest of the medication be Changed. Monitor the Blood Sugar., . Cover the patient with a sliding scale NovoLog insulin coverage. We'll continue to follow.
--- NOTE | 2019-01-06 17:29 | US ---
EXAMINATION TYPE: US abdomen limited DATE OF EXAM: 01/06/2019 COMPARISON: NONE CLINICAL HISTORY: bloasting, GB eval. N/V, right flank pain EXAM MEASUREMENTS: Liver Length: 15.9 cm Gallbladder Wall: 0.2 cm CBD: 0.8 cm Right Kidney: 10.2 x 5.1 x 5.3 cm Pancreas: visualized portions wnl, limited by overlying midline bowel gas Liver: increased attenuation, heterogeneous, decreased visualization of vessels suggestive of fatty infiltrate, 1.6cm hypoechoic area adjacent to gallbladder possible focal sparing Gallbladder: wnl Evidence for sonographic Estrella's sign: no CBD: dilated Right Kidney: 1.6 x 1.7 x 1.9cm cyst inferior pole, multiple echogenic shadowing foci with largest m easuring 0.6cm IMPRESSION: Small right renal cortical cyst. No gallstones. No dilated ducts within the liver. Possible nonobstructing renal calculus. Fatty infiltration of the liver.
[2019-01-06] MEDS: INSULIN ASPART (NovoLOG) 100 UNIT/ML VIAL SQ SCH ×2 (18:45→23:15)
[2019-01-06] MEDS: methylPREDNISolone SOD SUCCI 40 MG/ML 1 ML VIAL IV SCH (18:47)
[2019-01-06] MEDS: IPRATROPIUM-ALBUTEROL 3 ML NEB INHALATION SCH (19:49)
[2019-01-06 22:44] LABS: Glucose,Whole Blood 149 mg/dL (75-99)
[2019-01-06] MEDS: OXYMETAZOLINE 0.05% NASL SPRAY 1 SPRAY BOTTLE NASAL SCH (23:15)
[2019-01-06] MEDS: CEFEPIME 1 GM in SODIUM CHLORIDE 0.9% 50 ML IVPB SCH (23:15)
[2019-01-07] MEDS: methylPREDNISolone SOD SUCCI 40 MG/ML 1 ML VIAL IV SCH ×3 (02:21→20:46)
[2019-01-07 06:54] LABS: Glucose,Whole Blood 165 mg/dL (75-99)
[2019-01-07 07:39] LABS: HCT 32.6 % (34.0-46.0); HGB 10.6 gm/dL (11.4-16.0); MCH 29.2 pg (25.0-35.0); MCHC 32.4 g/dL (31.0-37.0); MCV 90.1 fL (80.0-100.0); Mean Platelet Volume 6.2; Platelet Count 389 k/uL (150-450); RBC 3.62 m/uL (3.80-5.40); RDW 14.5 % (11.5-15.5); WBC 11.9 k/uL (3.8-10.6)
[2019-01-07 07:55] LABS: Albumin 3.6 g/dL (3.5-5.0); Potassium 4.4 mmol/L (3.5-5.1); Total Bilirubin 0.4 mg/dL (0.2-1.3)
[2019-01-07] MEDS: CEFEPIME 1 GM in SODIUM CHLORIDE 0.9% 50 ML IVPB SCH ×2 (08:00→20:46)
[2019-01-07] MEDS: INSULIN ASPART (NovoLOG) 100 UNIT/ML VIAL SQ SCH ×4 (08:00→21:01)
[2019-01-07] MEDS: OXYMETAZOLINE 0.05% NASL SPRAY 1 SPRAY BOTTLE NASAL SCH ×2 (08:00→20:47)
[2019-01-07] MEDS: PANTOPRAZOLE 40 MG/10 ML VIAL IVP SCH (08:00)
[2019-01-07] MEDS: SYMBICORT 160-4.5 MCG INHALER INHALATION SCH ×2 (08:12→20:20)
[2019-01-07] MEDS: IPRATROPIUM-ALBUTEROL 3 ML NEB INHALATION SCH ×3 (08:13→20:20)
[2019-01-07] MEDS ORDERED: PANTOPRAZOLE 40 MG TABLET PO SCH (09:00)
--- NOTE | 2019-01-07 10:03 | P.PN ---
Subjective Progress Note Date: 01/07/19 On today's evaluation of 01/07/2019 I'm seeing this patient for a follow-up. She is feeling slightly better compared to yesterday. On examination she is less bronchospastic and wheezy. Noted the patient was treated for pneumonia in addition to COPD exacerbation. She has history of Curtis's granulomatosis.. Clinically on a combination of Rituxan and prednisone. Currently she is on a combination of cefepime and Levaquin. Her cough has subsided. She was able to give us a sputum sample and the cultures are still pending for now. Blood cultures been negative. The patient is also on systemic steroids which gave her some insomnia overnight. No nausea. No vomiting. No chest pain. No pleurisy. No hemoptysis. Her breathing in general has improved. On and off the patient continued to have some nosebleeds and currently inactive. Objective - Vital Signs Vital signs: Vital Signs Temp 98.0 F 01/07/19 07:00 Pulse 92 01/07/19 08:31 Resp 16 01/07/19 07:00 BP 158/74 01/07/19 07:00 Pulse Ox 96 01/07/19 08:13 Intake & Output 01/06/19 01/07/19 01/07/19 18:59 06:59 18:59 Intake Total 296 236 200 Balance 296 236 200 Intake: Oral 296 236 200 Other: # Voids 1 1 - Exam - Constitutional General appearance: mild distress, obese, with some cushingoid features related to chronic steroid use - EENT Eyes: anicteric sclerae, EOMI, PERRLA, no ptosis, no scleral icterus, normal appearance ENT: hearing grossly normal, NA/AT, normal oropharynx, no thrush Ears: bilateral: normal - Neck Neck: no lymphadenopathy, normal ROM, no rigidity, no stridor, no thyromegaly Carotids: bilateral: upstroke normal Thyroid: bilateral: normal size - Respiratory Respiratory: bilateral: Improved breathing and improved air entry bilaterally along with some few scattered rhonchi and wheezes, overall improved - Cardiovascular Rhythm: regular Heart sounds: normal: S1, S2 Abnormal Heart Sounds: no systolic murmur, no rub, no S3 Gallop, no S4 Gallop, no click - Gastrointestinal General gastrointestinal: normal bowel sounds, soft, right upper quadrant tenderness, no umbilical hernia, no ventral hernia - Integumentary Integumentary: normal, normal turgor - Neurologic Neurologic: CNII-XII intact - Musculoskeletal Musculoskeletal: generalized weakness - Psychiatric Psychiatric: A&O x's 3, appropriate affect, intact judgment & insight - Labs CBC & Chem 7: 01/07/19 06:33 01/07/19 06:33 Labs: Abnormal Lab Results - Last 24 Hours (Table) 01/06/19 01/07/19 01/07/19 Range/Units 22:43 06:33 06:33 WBC 11.9 H (3.8-10.6) k/uL RBC 3.62 L (3.80-5.40) m/uL Hgb 10.6 L (11.4-16.0) gm/dL Hct 32.6 L (34.0-46.0) % Chloride 110 H (98-107) mmol/L BUN 31 H (7-17) mg/dL Glucose 153 H (74-99) mg/dL POC Glucose (mg/dL) 149 H (75-99) mg/dL Total Protein 6.0 L (6.3-8.2) g/dL 01/07/19 Range/Units 06:52 WBC (3.8-10.6) k/uL RBC (3.80-5.40) m/uL Hgb (11.4-16.0) gm/dL Hct (34.0-46.0) % Chloride (98-107) mmol/L BUN (7-17) mg/dL Glucose (74-99) mg/dL POC Glucose (mg/dL) 165 H (75-99) mg/dL Total Protein (6.3-8.2) g/dL Assessment and Plan Plan: 1 left lower lobe pneumonia involving the posterior segment of the left lower lobe as the patient has an area of groundglass/consolidation measuring 2.3 x 1.8 cm, rule out bacterial pneumonia, rule out viral pneumonia. Noted the patient is immunosuppressed with a combination of Rituxan and prednisone 2 acute nausea and emesis and questionable component of pancreatitis, could be viral/infectious in nature, improved 3 COPD exacerbation secondary to above 4 Curtis's granulomatosis maintained on immunosuppressive treatment with a combination of prednisone and Rituxan 5 cushingoid features related to chronic steroid use 6 diabetes mellitus 7 coronary artery disease with previous ID 8 acid reflux 9 ovarian cyst 10 diabetes mellitus 11 epistaxis, currently inactive and stable, awaiting ENT evaluation. Plan Clinically the patient is improving. Continue the cefepime and Levaquin combination. Tapered IV Solu-Medrol to 40 mg every 12 hours. Add Ambien 5 mg at bedtime for increased insomnia that occurring overnight. the patient will be seen by ENT regarding the epistaxis. The epistaxis is not active for now in the last bleeding was experiencing yesterday evening. We'll continue to follow. Her GI status is improved and the lipase has normalized.
[2019-01-07] MEDS: CALCIUM CARB-VIT D 500MG-200UN 1 EACH TAB PO SCH ×2 (12:17→17:02)
[2019-01-07 12:18] LABS: Glucose,Whole Blood 162 mg/dL (75-99)
[2019-01-07 14:51] LABS: Hemoglobin A1C 6.1 % (4.0-6.0)
[2019-01-07 17:00] LABS: Glucose,Whole Blood 120 mg/dL (75-99)
[2019-01-07 20:26] LABS: Glucose,Whole Blood 117 mg/dL (75-99)
[2019-01-07] MEDS: ZOLPIDEM 5 MG TAB PO PRN (20:46)
--- NOTE | 2019-01-08 07:18 | CONS ---
CONSULTATION DATE OF CONSULTATION: 01/07/2019 REASON FOR THE CONSULTATION: Epistaxis. HISTORY OF PRESENT ILLNESS: This patient is a pleasant 58-year-old female who was recently admitted to [facility] via the emergency room with complaints of nausea and vomiting. The patient was evaluated by the ER physician and was admitted for possible acute pancreatitis. In addition, this patient was having episodes of epistaxis and passed a very large blood clot through her left nostril. Upon questioning, the patient states that in the past she has had very minor nosebleeds, but nothing recently. She denies being on any blood thinners or low-dose aspirin. She has an interesting history in that in the past she has had been diagnosed with Curtis's granulomatosis, mainly confined to her lungs. As a consequence, she has undergone partial resection of the middle lobe of the right lung. The patient admits to having been a frequent/heavy smoker in the past, but states that since July she has quit smoking completely. I encouraged her to continue to do so because of her lung condition. In the past, the patient has never been told that she had any nasal lesions from her Curtis's granulomatosis. Initially, the patient was placed on David-Synephrine spray to stop the bleeding. However, at the time that I was consulted, I advised the nurse to switch her to Afrin nasal spray 2 puffs in the left nostril 3 times daily as a vasoconstrictor. I advised the nurse that if at all possible, we wanted to avoid placing any type of packing intranasally especially if there is a possibility that she has lesions intranasally from her Curtis's granulomatosis. Packing would only aggravate the bleeding. PAST MEDICAL HISTORY: Past medical history reveals the patient has allergies to AZATHIOPRINE, CODEINE, FLAGYL, and METHOTREXATE. Her home medications include prednisone, Protonix, Repatha, albuterol, and Symbicort. Again, the patient states that she quit smoking completely in July 2018. There is no history of hypertension or diabetes mellitus. There is a history of emphysema/COPD. REVIEW OF SYSTEMS: Review of systems is positive with respect to the respiratory system for COPD/emphysema. The gastrointestinal system is positive for GERD (gastroesophageal reflux disorder). The remainder of the review of systems is essentially unremarkable. PHYSICAL EXAMINATION: The patient is a pleasant 58-year-old female who was alert, cooperative, and well oriented to time and place. HEENT EXAMINATION: Patient is normocephalic. Tympanic membranes are normal. Middle ear spaces are free of any fluid or infection. Pupils are equal, round, and reactive to light and accommodation. Conjunctivae are clear. Extraocular movements are within normal limits. Intranasal examination reveals moderate septal deviation to the right with bilateral compensatory hypertrophy of the inferior turbinates. There is no active bleeding in either naris. I do not see any of the characteristic lesions of Curtis's intranasally, specifically I do not see any lesions on the septum. That is to say there is no evidence of any scabbing or crusting intranasally and I do not identify any obvious active bleeding sites, although there is some dried blood in the left nasal vault. Examination of oropharynx reveals no evidence of any bleeding on the posterior pharyngeal wall. Palpation of the neck, cranial nerves 2 through 12 and the remainder of the head and neck exam are all within normal limits. CHEST/CARDIOVASCULAR: Lung dave on the left side essentially is clear. Right side lung dave shows some evidence of slight wheezing in the lower dave, but no obvious rales or rhonchi. ABDOMEN: There is no evidence any masses, megaly or tenderness. The abdomen is soft. The remainder of physical exam is unremarkable. IMPRESSION: Left epistaxis, anterior/posterior etiology, probably early Curtis's granulomatosis lesions. PLAN: At this point, I would like to keep the patient on the Afrin nasal spray while she is in the hospital. Once she is discharged from the hospital, however, she should stop the Afrin nasal spray. I have advised the patient at least for the next 2 weeks that if she has to blow her nose she should not pinch her nostrils, but simply hold tissue or Kleenex below her nose and blow very gently. In addition, if she does develop a nosebleed at home, she should avoid placing any type of paper products intranasally, but instead use cotton either dry or even moistened. I further advised the patient that if the bleeding is not able to be stopped by simply pinching her nose for 5 minutes, then she may use the Afrin nasal spray for anywhere from 3 to 5 days and generally, she should not develop any type of addiction such as rhinitis medicamentosa. I did advise the patient that in the normal progression of this disease that she will most likely at some point develop lesions intranasally and certainly her kidneys are something that should be carefully monitored for potential Curtis's disease. All of her questions were answered. I also advised her to avoid using saline spray because the saline spray is actually quite drying because of the salt. During the winter months, she can either use a cool humidifier in her bedroom or she may simply apply plain Vaseline petroleum jelly intranasally twice daily during winter months while her furnace is on and certainly in the springtime when the humidity is higher then certainly she should be able to turn the furnace off. Applying the Vaseline intranasally will keep the mucous membranes moist for many hours and avoid the drying effect of a heating system in the wintertime.I would also like to get a baseline ct scan of the sinuses without contrast, if possible, while patient is in the hospital. I want to take this opportunity to thank you for allowing me to assist you in the care of your patient. If I could be of any further assistance, please feel free to re- consult me. I will not need to see this patient in my office once she is discharged. ARLEN / GIUSEPPEN: [id number] / ZOE
[2019-01-08 07:19] LABS: Glucose,Whole Blood 139 mg/dL (75-99)
[2019-01-08] MEDS: INSULIN ASPART (NovoLOG) 100 UNIT/ML VIAL SQ SCH ×4 (08:23→20:05)
[2019-01-08] MEDS: IPRATROPIUM-ALBUTEROL 3 ML NEB INHALATION SCH ×3 (08:33→20:22)
[2019-01-08] MEDS: SYMBICORT 160-4.5 MCG INHALER INHALATION SCH (08:38)
[2019-01-08] MEDS: PANTOPRAZOLE 40 MG TABLET PO SCH (08:43)
[2019-01-08] MEDS: CEFEPIME 1 GM in SODIUM CHLORIDE 0.9% 50 ML IVPB SCH ×2 (08:43→20:45)
[2019-01-08] MEDS: CALCIUM CARB-VIT D 500MG-200UN 1 EACH TAB PO SCH ×2 (08:43→17:36)
[2019-01-08] MEDS: methylPREDNISolone SOD SUCCI 40 MG/ML 1 ML VIAL IV SCH ×2 (08:43→20:45)
[2019-01-08] MEDS: OXYMETAZOLINE 0.05% NASL SPRAY 1 SPRAY BOTTLE NASAL SCH ×2 (08:44→20:45)
[2019-01-08] MEDS ORDERED: PANTOPRAZOLE 40 MG/10 ML VIAL IVP SCH (09:00)
[2019-01-08 12:07] LABS: Glucose,Whole Blood 123 mg/dL (75-99)
--- NOTE | 2019-01-08 12:52 | CT ---
EXAMINATION TYPE: CT sinus wo con DATE OF EXAM: 01/08/2019 COMPARISON: NONE HISTORY: Nose bleeds with history of Curtis's granulomatosis CT DLP: 320.8 mGycm. Automated Exposure Control for Dose Reduction was Utilized. TECHNIQUE: CT scan of the sinuses is performed without contrast, axial images are obtained, coronal r eformatted images are also reviewed. FINDINGS: There is 9 mm mucous retention cyst or polyp in the medial left maxillary sinus axial image 10. Mild mucosal thickening is seen inferiorly in both maxillary sinuses. There is hypoplastic righ t frontal sinus. Remainder paranasal sinuses are clear without suspicious opacification or air-fluid level. The ostiomeatal complex is blocked on the right and narrowed on the left due to antral mucosal thickening on the coronal images. Nasal superior, inferior, and middle meatus bilaterally are though patent. No suspicious soft tissue masses. No bony destruction. Visualized portion of mastoid air cells show no abnormal opacification. The globes are intact bilate rally. Visualized portion of brain parenchyma shows mild diffuse age-related cerebral atrophy. IMPRESSION: No acute sinusitis. Some chronic changes noted. No nasal masses or polyps identified
[2019-01-08] MEDS ORDERED: ENALAPRILAT 1.25 MG/ML 1 ML VIAL IVP PRN (12:56)
--- NOTE | 2019-01-08 13:50 | P.PN ---
Subjective Progress Note Date: 01/08/19 Principal diagnosis: Left lower lobe pneumonia On 01/08/2019 patient seen in follow-up on medical surgical floor. She is awake and alert, oriented 3, no acute distress other than coughing spells, and patient is bringing up large amount of thick yellow sputum. She states she c ould not sleep very well last night related to coughing spells. Denies any chest pain, however she states her throat is irritated from all the coughing she is done. No fever, no chills. No hemoptysis, patient is on a combination of Levaquin and cefepime, sputum culture has shown some gram-negative bacilli, moderate gram-positive bacilli, and rare gram-positive cocci, final culture is pending. Sinus CT was obtained and showed no acute sinusitis, no nasal masses or polyps. No recurrence of nose bleeding Objective - Vital Signs Vital signs: Vital Signs Temp 98.1 F 01/08/19 07:00 Pulse 91 01/08/19 12:45 Resp 16 01/08/19 07:00 BP 194/71 01/08/19 07:00 Pulse Ox 96 01/08/19 08:33 Intake & Output 01/07/19 01/08/19 01/08/19 18:59 06:59 18:59 Intake Total 250 50 Balance 250 50 Intake: Intake, IV Titration 50 50 Amount Cefepime 1 gm In Sodium 50 50 Chloride 0.9% 50 ml @ 100 mls/hr IVPB Q12HR [facility] Rx #:[id number] Oral 200 Other: Voiding Method Toilet Toilet - Exam GENERAL EXAM: Alert, pleasant, 58-year-old white female, with frequent cough, with production of large amount of yellow colored sputum comfortable in no apparent distress. HEAD: Normocephalic/atraumatic. EYES: Normal reaction of pupils, equal size. Conjunctiva pink, sclera white. NOSE: Clear with pink turbinates. THROAT: No erythema or exudates. NECK: No masses, no JVD, no thyroid enlargement, no adenopathy. CHEST: No chest wall deformity. Symmetrical expansion. LUNGS: Equal air entry with no crackles. Diminished breath sounds at the bases, diffuse wheezes CVS: Regular rate and rhythm, normal S1 and S2, no gallops, no murmurs, no rubs ABDOMEN: Soft, nontender. No hepatosplenomegaly, normal bowel sounds, no guardi ng or rigidity. EXTREMITIES: No clubbing, no edema, no cyanosis, 2+ pulses and upper and lower extremities. MUSCULOSKELETAL: Muscle strength and tone normal. SPINE: No scoliosis or deformity SKIN: No rashes CENTRAL NERVOUS SYSTEM: Alert and oriented -3. No focal deficits, tone is normal in all 4 extremities. PSYCHIATRIC: Alert and oriented -3. Appropriate affect. Intact judgment and insight. - Labs CBC & Chem 7: 01/07/19 06:33 01/07/19 06:33 Labs: Abnormal Lab Results - Last 24 Hours (Table) 01/07/19 01/07/19 01/07/19 Range/Units 06:33 16:53 20:25 POC Glucose (mg/dL) 120 H 117 H (75-99) mg/dL Hemoglobin A1c 6.1 H (4.0-6.0) % 01/08/19 01/08/19 Range/Units 06:50 12:05 POC Glucose (mg/dL) 139 H 123 H (75-99) mg/dL Hemoglobin A1c (4.0-6.0) % Microbiology - Last 24 Hours (Table) 01/07/19 08:00 Gram Stain - Preliminary Sputum Sputum Culture - Preliminary Assessment and Plan Plan: Assessment: 1 left lower lobe pneumonia involving the posterior segment of the left lower lobe as the patient has an area of groundglass/consolidation measuring 2.3 x 1.8 cm, rule out bacterial pneumonia, rule out viral pneumonia. 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 Plan: Continue with current antibiotic treatment, awaiting final results of the sputum culture, no fever or chills, patient is clearing large amount of thick yellow sputum, but clinically patient is stable, and continue with IV steroids, nebulized bronchodilators, we'll add some cough drops, we'll repeat follow-up chest x-ray tomorrow. Encourage activity, ambulation. I performed a history & physical examination of the patient and discussed their management with my nurse practitioner, Zaida Aguilar. I reviewed the nurse practitioner's note and agree with the documented findings and plan of care. Lung sounds are positive for diffuse wheezes throughout the lung dave. The findings and the impression was discussed with the patient. I attest to the documentation by the nurse practitioner. Time with Patient: Less than 30
[2019-01-08] MEDS ORDERED: LORazepam 1 MG TAB PO PRN (14:45)
[2019-01-08] MEDS: LISINOPRIL 10 MG TAB PO SCH (14:55)
[2019-01-08] MEDS: CLOTRIMAZOLE TROCHE 10 MG TROCHE MUCOUS MEM SCH ×4 (14:55→23:09)
[2019-01-08] MEDS ORDERED: LORazepam 0.5 MG TAB PO PRN (15:10)
[2019-01-08] MEDS ORDERED: LEVOFLOXACIN 750 MG TAB PO SCH ×2 (16:00→16:30)
--- NOTE | 2019-01-08 16:26 | P.PN ---
Subjective Progress Note Date: 01/07/19 This is a 58-year-old female patient of Dr. 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 Neri at [facility] and Dr. Duong locally 8, history of right lower lobe resection due to Curtis back in 2014, history of obesity, chronic tobacco use and dependence-quit in July 2018, diabetes mellitus type 2. Patient states that she received influenza vaccine and Repatha injection. On Sunday, she started having fever, vomiting and diarrhea that continued until last evening. She complains of right-sided back soreness, no abdominal pain. She states she's had bloating every time she eats. She denies any alcohol intake at all. She states she has nocturia and voids at least 5 times during the night and only trickles during the day. She does have history of renal stones and underwent lithotripsy at [facility]. She stopped smoking completely in July of this year and prior to that she was down to 1 cigarette per day. She is complaining of sputum that is yellow and productive cough that is going on most of the year. Patient came into [facility] emergency center for evaluation. Vital signs were stable, white count 21.4, BUN 21 creatinine 1.11, blood sugar 120. Lactic acid 1.3, lipase 966. Troponin was negative. Urinalysis clear with nitrate and leukoesterase negative. EKG was sinus rhythm with no acute ST changes. In the ER, patient received 2 L of IV fluid, Zofran, Protonix, Decadron and was admitted to the MedSur floor. Consults are in place for pulmonary medicine and consult was admitted for ENT for epistaxis. Patient has had ongoing problems with epistaxis this afternoon had large clots. 01/07: The patient states that she is also on right toxin her last dose was given in October. This is scheduled every 6 months. Abdominal ultrasound showed possible nonobstructive renal calculus, fatty infiltration of the liver, small right renal cortical cysts. No gallstones. No dilated ducts within the liver. Patient instructed to follow low-fat and low carb diet. She states she has been on a low carb daily diet for the past 1-1/2 years. Patient has been seen by Dr. Keller for epistaxis and recommended Afrin spray for 3-5 days without worry for addiction, cool humidifier and Vaseline petroleum jelly intranasally. He recommends against saline spray. Epistaxis is improved. She states she did have a large clot the size of the palm of her hand yesterday. Solu-Medrol decreased to 40 mg every 12 hours. Levaquin has been switched to oral. Patient is complaining of overactive bladder with frequent nocturia. Pulmonary has added and Ambien for sleep. Review of Systems Constitutional: Reports anorexia, Reports chills, Reports fever, Reports poor appetite Ears, nose, mouth and throat: Reports epistaxis, Denies dental pain, Denies mouth pain, Denies vertigo Cardiovascular: Denies chest pain, Denies decreased exercise tolerance, Denies dyspnea on exertion, Denies edema, Denies irregular heart beat, Denies leg edema, Denies lightheadedness, Denies syncope Respiratory: Reports cough, Reports cough with sputum, Reports excessive sputum, Reports respiratory infections, Denies dyspnea, Denies hemoptysis, Denies home oxygen, Denies wheezing Gastrointestinal: Denies diarrhea, denies nausea, denies vomiting, Denies abdominal pain, Denies constipation Genitourinary: Reports flank pain, Reports nocturia, Denies urgency, Denies urinary frequency Musculoskeletal: Denies frequent falls, Denies gait dysfunction, Denies muscle weakness, Denies myalgias Integumentary: Denies pruritus, Denies rash, Denies wounds Neurological: Denies numbness, Denies vertigo, Denies weakness Psychiatric: Denies anxiety, Denies depression, reports insomnia Endocrine: Denies fatigue, Denies weight change Objective - Vital Signs Vital signs: Vital Signs Temp 98.0 F 01/07/19 07:00 Pulse 92 01/07/19 08:31 Resp 16 01/07/19 07:00 BP 158/74 01/07/19 07:00 Pulse Ox 96 01/07/19 08:13 Intake & Output 01/06/19 01/07/19 01/07/19 18:59 06:59 18:59 Intake Total 296 236 200 Balance 296 236 200 Intake: Oral 296 236 200 Other: # Voids 1 1 - Exam - Constitutional General appearance: No distress, obese - EENT Eyes: anicteric sclerae, EOMI, PERRLA, no ptosis, no scleral icterus, normal appearance ENT: hearing grossly normal, NA/AT, normal oropharynx, no thrush, no epistaxis Ears: bilateral: normal - Neck Neck: no lymphadenopathy, normal ROM, no rigidity, no stridor, no thyromegaly Carotids: bilateral: upstroke normal Thyroid: bilateral: normal size - Respiratory Respiratory: bilateral: diminished, wheezing, prolonged expiration, negative: dullness, rales, rhonchi Frequent moist cough - Cardiovascular Rhythm: regular Heart sounds: normal: S1, S2 Abnormal Heart Sounds: no systolic murmur, no rub, no S3 Gallop, no S4 Gallop, no click - Gastrointestinal General gastrointestinal: normal bowel sounds, soft, no tenderness, no umbilical hernia, no ventral hernia - Integumentary Integumentary: normal, normal turgor - Neurologic Neurologic: CNII-XII intact - Musculoskeletal Musculoskeletal: generalized weakness - Psychiatric Psychiatric: A&O x's 3, appropriate affect, intact judgment & insight - Labs CBC & Chem 7: 01/07/19 06:33 01/07/19 06:33 Labs: Abnormal Lab Results - Last 24 Hours (Table) 01/06/19 01/07/19 01/07/19 Range/Units 22:43 06:33 06:33 WBC 11.9 H (3.8-10.6) k/uL RBC 3.62 L (3.80-5.40) m/uL Hgb 10.6 L (11.4-16.0) gm/dL Hct 32.6 L (34.0-46.0) % Chloride 110 H (98-107) mmol/L BUN 31 H (7-17) mg/dL Glucose 153 H (74-99) mg/dL POC Glucose (mg/dL) 149 H (75-99) mg/dL Total Protein 6.0 L (6.3-8.2) g/dL 01/07/19 Range/Units 06:52 WBC (3.8-10.6) k/uL RBC (3.80-5.40) m/uL Hgb (11.4-16.0) gm/dL Hct (34.0-46.0) % Chloride (98-107) mmol/L BUN (7-17) mg/dL Glucose (74-99) mg/dL POC Glucose (mg/dL) 165 H (75-99) mg/dL Total Protein (6.3-8.2) g/dL Microbiology - Last 24 Hours (Table) 01/07/19 08:00 Sputum Culture - Preliminary Sputum Assessment and Plan Plan: 1. Acute vomiting and diarrhea with dehydration secondary to gastroenteritis, resolved. Status post IV fluids and Zofran. 2. Acute pancreatitis, resolved. Abdominal ultrasound ordered. 3. COPD with chronic bronchitis, rule out pneumonia. Patient complains of significant cough with yellow sputum production. CAT scan of the chest ordered. Consult with Dr. Damico. Continue DuoNeb treatments 3 times daily and every 2 hours as needed, Symbicort, cefepime, Levaquin, Solu-Medrol. 4. Acute epistaxis. Consult with Dr. Keller appreciated. Afrin added. 5. History of Curtis granulomatosis. Continue patient prednisone 7.5 mg daily at the time of discharge. Patient currently on IV Solu-Medrol. 6. GERD. Continue Protonix 40 mg every day. 4. Hyperglycemia. Monitor the patient blood sugars. 5. Chronic tobacco use and dependence--patient quit July 2018. 6. DVT prophylaxis. SCDs and KRYSTAL hose. 7. GI prophylaxis. Continue patient on Protonix 40 mg orally once every day. Patient's full code. Discharge Plan: Return home Impression and plan of care have been directed as dictated by the signing physician. Lanette Mccarthy nurse practitioner acting as scribe for signing physician.
--- NOTE | 2019-01-08 16:31 | P.PN ---
Subjective Progress Note Date: 01/08/19 This is a 58-year-old female patient of Dr. 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 Neri at and Dr. Duong locally 8, history of right lower lobe resection due to Curtis back in 2014, history of obesity, chronic tobacco use and dependence-quit in July 2018, diabetes mellitus type 2. Patient states that she received influenza vaccine and Repatha injection. On Sunday, she started having fever, vomiting and diarrhea that continued until last evening. She complains of right-sided back soreness, no abdominal pain. She states she's had bloating every time she eats. She denies any alcohol intake at all. She states she has nocturia and voids at least 5 times during the night and only trickles during the day. She does have history of renal stones and underwent lithotripsy at . She stopped smoking completely in July of this year and prior to that she was down to 1 cigarette per day. She is complaining of sputum that is yellow and productive cough that is going on most of the year. Patient came into [facility] emergency center for evaluation. Vital signs were stable, white count 21.4, BUN 21 creatinine 1.11, blood sugar 120. Lactic acid 1.3, lipase 966. Troponin was negative. Urinalysis clear with nitrate and leukoesterase negative. EKG was sinus rhythm with no acute ST changes. In the ER, patient received 2 L of IV fluid, Zofran, Protonix, Decadron and was admitted to the MedSur floor. Consults are in place for pulmonary medicine and consult was admitted for ENT for epistaxis. Patient has had ongoing problems with epistaxis this afternoon had large clots. 01/07: The patient states that she is also on right toxin her last dose was given in October. This is scheduled every 6 months. Abdominal ultrasound showed possible nonobstructive renal calculus, fatty infiltration of the liver, small right renal cortical cysts. No gallstones. No dilated ducts within the liver. Patient instructed to follow low-fat and low carb diet. She states she has been on a low carb daily diet for the past 1-1/2 years. Patient has been seen by Dr. Keller for epistaxis and recommended Afrin spray for 3-5 days without worry for addiction, cool humidifier and Vaseline petroleum jelly intranasally. He recommends against saline spray. Epistaxis is improved. She states she did have a large clot the size of the palm of her hand yesterday. Solu-Medrol decreased to 40 mg every 12 hours. Levaquin has been switched to oral. Patient is complaining of overactive bladder with frequent nocturia. Pulmonary has added and Ambien for sleep. 01/08: Patient states that she is not ready for discharge today. 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 The patient took Ambien last night at 9:30 and did not fall asleep until 12:30 and only suffer 5 hours. She is very upset regarding insomnia. Solu-Medrol will be discontinued this evening and start oral prednisone for tomorrow. Clotrimazole added for oral thrush. Dr. Keller had ordered a sinus CAT scan which revealed no acute sinusitis. Some chronic changes noted. No nasal masses or polyps identified. Patient continues to have wheezing for which Symbicort changed to Pulmicort. Patient does have nebulizer at home. Anticipate she will be ready for discharge by tomorrow. Review of Systems Constitutional: Reports anorexia, Reports chills, Reports fever, Reports poor appetite Ears, nose, mouth and throat: denies epistaxis, Denies dental pain, Denies mouth pain, Denies vertigo Cardiovascular: Denies chest pain, Denies decreased exercise tolerance, Denies dyspnea on exertion, Denies edema, Denies irregular heart beat, Denies leg edema, Denies lightheadedness, Denies syncope Respiratory: Reports cough, Reports cough with sputum, Reports excessive sputum, Reports respiratory infections, Denies dyspnea, Denies hemoptysis, Denies home oxygen, Denies wheezing Gastrointestinal: Denies diarrhea, denies nausea, denies vomiting, Denies abdominal pain, Denies constipation Genitourinary: Reports flank pain, Reports nocturia, Denies urgency, Denies urinary frequency Musculoskeletal: Denies frequent falls, Denies gait dysfunction, Denies muscle weakness, Denies myalgias Integumentary: Denies pruritus, Denies rash, Denies wounds Neurological: Denies numbness, Denies vertigo, Denies weakness Psychiatric: Denies anxiety, Denies depression, reports insomnia Endocrine: Denies fatigue, Denies weight change Objective - Vital Signs Vital signs: Vital Signs Temp 98.1 F 01/08/19 07:00 Pulse 91 01/08/19 12:45 Resp 16 01/08/19 07:00 BP 194/71 01/08/19 07:00 Pulse Ox 96 01/08/19 08:33 Intake & Output 01/07/19 01/08/19 01/08/19 18:59 06:59 18:59 Intake Total 250 50 Balance 250 50 Intake: Intake, IV Titration 50 50 Amount Cefepime 1 gm In Sodium 50 50 Chloride 0.9% 50 ml @ 100 mls/hr IVPB Q12HR [facility] Rx #:[id number] Oral 200 Other: Voiding Method Toilet Toilet - Exam - Constitutional General appearance: No distress, obese - EENT Eyes: anicteric sclerae, EOMI, PERRLA, no ptosis, no scleral icterus, normal appearance ENT: hearing grossly normal, NA/AT, normal oropharynx, no thrush, no epistaxis Ears: bilateral: normal - Neck Neck: no lymphadenopathy, normal ROM, no rigidity, no stridor, no thyromegaly Carotids: bilateral: upstroke normal Thyroid: bilateral: normal size - Respiratory Respiratory: bilateral: diminished, expiratory wheezing, prolonged expiration, negative: dullness, rales, rhonchi Frequent moist cough - Cardiovascular Rhythm: regular Heart sounds: normal: S1, S2 Abnormal Heart Sounds: no systolic murmur, no rub, no S3 Gallop, no S4 Gallop, no click - Gastrointestinal General gastrointestinal: normal bowel sounds, soft, no tenderness, no umbilical hernia, no ventral hernia - Integumentary Integumentary: normal, normal turgor - Neurologic Neurologic: CNII-XII intact - Musculoskeletal Musculoskeletal: generalized weakness - Psychiatric Psychiatric: A&O x's 3, appropriate affect, intact judgment & insight - Labs CBC & Chem 7: 01/07/19 06:33 01/07/19 06:33 Labs: Abnormal Lab Results - Last 24 Hours (Table) 01/07/19 01/07/19 01/07/19 Range/Units 06:33 16:53 20:25 POC Glucose (mg/dL) 120 H 117 H (75-99) mg/dL Hemoglobin A1c 6.1 H (4.0-6.0) % 01/08/19 01/08/19 Range/Units 06:50 12:05 POC Glucose (mg/dL) 139 H 123 H (75-99) mg/dL Hemoglobin A1c (4.0-6.0) % Microbiology - Last 24 Hours (Table) 01/07/19 08:00 Gram Stain - Preliminary Sputum Sputum Culture - Preliminary Assessment and Plan Plan: 1. Acute vomiting and diarrhea with dehydration secondary to gastroenteritis, resolved. Status post IV fluids and Zofran. 2. Acute pancreatitis, resolved. Abdominal ultrasound ordered. 3. COPD with chronic bronchitis, rule out pneumonia. Patient complains of significant cough with yellow sputum production. CAT scan of the chest ordered. Consult with Dr. Damico. Continue DuoNeb treatments 3 times daily and every 2 hours as needed, Symbicort changed to Pulmicort, cefepime, Levaquin, Solu- Medrol will be discontinued this evening and start prednisone in the morning. 4. Acute epistaxis. Consult with Dr. Keller appreciated. Afrin added. 5. History of Curtis granulomatosis. Continue patient prednisone 7.5 mg daily at the time of discharge. Patient currently on IV Solu-Medrol. 6. GERD. Continue Protonix 40 mg every day. 4. Hyperglycemia. Monitor the patient blood sugars. 5. Chronic tobacco use and dependence--patient quit July 2018. 6. DVT prophylaxis. SCDs and KRYSTAL hose. 7. GI prophylaxis. Continue patient on Protonix 40 mg orally once every day. Patient's full code. Discharge Plan: Return home tomorrow Impression and plan of care have been directed as dictated by the signing physician. Lanette Mccarthy nurse practitioner acting as scribe for signing physician.
[2019-01-08 16:52] LABS: Glucose,Whole Blood 128 mg/dL (75-99)
[2019-01-08 20:06] LABS: Glucose,Whole Blood 128 mg/dL (75-99)
[2019-01-08] MEDS: BUDESONIDE 0.5 MG/2 ML NEBU INHALATION SCH (20:20)
[2019-01-08] MEDS: BENZOCAINE/MENTHOL LOZENG 1 EACH LOZENGE MUCOUS MEM PRN (20:45)
[2019-01-08] MEDS: ZOLPIDEM 5 MG TAB PO PRN (20:45)
[2019-01-09 01:12] VITALS: RESP 16
[2019-01-09] MEDS: CLOTRIMAZOLE TROCHE 10 MG TROCHE MUCOUS MEM SCH ×2 (05:08→09:28)
--- NOTE | 2019-01-09 05:15 | PN ---
PROGRESS NOTE DATE OF SERVICE: 01/08/2019 SUBJECTIVE: Vital signs stable. Patient is doing well. She states that she has only had several very minor spotting episodes of nasal bleeding. She has not required any type of pressure on her nose. She continues to have the Afrin nasal spray intranasally twice daily. OBJECTIVE: Intranasal examination reveals no evidence of any active bleeding. ASSESSMENT: Anterior-posterior epistaxis, suspect etiology secondary to early Curtis's granulomatosis intranasally. PLAN: Continue with the Afrin nasal spray twice daily as long as the patient is inpatient. In addition to this, I would like to have the patient get a CT scan of the sinuses without contrast in an effort to evaluate the sinuses. As you know, along with the lungs, the sinonasal tract is another area of the body that is affected by Curtis's granulomatosis. I will order the CT scan for today. MMODL / IJN: [id number] / MTDD
[2019-01-09 07:09] LABS: Glucose,Whole Blood 160 mg/dL (75-99)
--- NOTE | 2019-01-09 07:15 | XR ---
EXAMINATION TYPE: XR chest 2V DATE OF EXAM: 01/09/2019 COMPARISON: 08/23/2018 HISTORY: Follow-up for left lower lobe pneumonia and rib pain TECHNIQUE: Frontal and lateral views of the chest are obtained. FINDINGS: There is redemonstration of a chronic trace right pleural effusion and/or pleural parenchy mal scarring. Subtle hazy patchy opacity in the left lower lobe. Similar prominence of the left hilar vasculature in comparison to the prior of 08/23/2018. Right upper lobe opacity is also unchanged from the prior exam when compared to the chest CT of 01/06/2019 this relates to postlobectomy change. IMPRESSION: Patchy trace left basilar airspace disease, likely resolving pneumonia, and postlobectom y changes on the right.
[2019-01-09 07:40] VITALS: BP 138/78; TEMP 98
[2019-01-09] MEDS: IPRATROPIUM-ALBUTEROL 3 ML NEB INHALATION SCH ×2 (08:38→13:30)
[2019-01-09] MEDS: BUDESONIDE 0.5 MG/2 ML NEBU INHALATION SCH (08:41)
[2019-01-09] MEDS ORDERED: predniSONE 20 MG TAB PO SCH (09:00)
[2019-01-09] MEDS: CEFEPIME 1 GM in SODIUM CHLORIDE 0.9% 50 ML IVPB SCH (09:22)
[2019-01-09] MEDS: LISINOPRIL 10 MG TAB PO SCH (09:22)
[2019-01-09] MEDS: PANTOPRAZOLE 40 MG TABLET PO SCH (09:22)
[2019-01-09] MEDS: INSULIN ASPART (NovoLOG) 100 UNIT/ML VIAL SQ SCH ×3 (09:23→12:04)
[2019-01-09 11:46] LABS: Glucose,Whole Blood 109 mg/dL (75-99)
[2019-01-09] MEDS: OXYMETAZOLINE 0.05% NASL SPRAY 1 SPRAY BOTTLE NASAL SCH (12:07)
[2019-01-09] MEDS: CALCIUM CARB-VIT D 500MG-200UN 1 EACH TAB PO SCH (12:07)
[2019-01-09] MEDS: BENZOCAINE/MENTHOL LOZENG 1 EACH LOZENGE MUCOUS MEM PRN (12:07)
[2019-01-09 13:40] VITALS: PULSE 86
--- NOTE | 2019-01-09 15:05 | P.PN ---
Subjective Progress Note Date: 01/09/19 Principal diagnosis: Left lower lobe pneumonia On 01/08/2019 patient seen in follow-up on medical surgical floor. She is awake and alert, oriented 3, no acute distress other than coughing spells, and patient is bringing up large amount of thick yellow sputum. She states she c ould not sleep very well last night related to coughing spells. Denies any chest pain, however she states her throat is irritated from all the coughing she is done. No fever, no chills. No hemoptysis, patient is on a combination of Levaquin and cefepime, sputum culture has shown some gram-negative bacilli, moderate gram-positive bacilli, and rare gram-positive cocci, final culture is pending. Sinus CT was obtained and showed no acute sinusitis, no nasal masses or polyps. No recurrence of nose bleeding On 01/09/2019 patient seen in follow-up on medical surgical floor. Doing well, except for some visual coughing spells, and patient is still bringing up a fair amount of yellow colored sputum, but no fever or chills, blood and sputum cultures showed no growth, she has been treated with a combination of cefepime and Levaquin, responded well to treatments, vital signs are stable, room air pulse ox of 97%, she is tolerating ambulation, vital signs are stable, lung sounds are positive for some diminished breath sounds at the bases, and a few wheezes. Received a course of IV steroids, has been transitioned to oral steroids today, overall she is doing much better, follow chest x-ray was obtained today showing patchy trace left basilar airspace disease likely resolving pneumonia and post lobectomy changes on the right. Patient is being discharged home today, and we will see the patient in follow-up on an outpatient basis. Objective - Vital Signs Vital signs: Vital Signs Temp 98 F 01/09/19 07:00 Pulse 86 01/09/19 13:40 Resp 16 01/09/19 08:00 BP 138/78 01/09/19 07:00 Pulse Ox 97 01/09/19 07:00 Intake & Output 01/08/19 01/09/19 01/09/19 18:59 06:59 18:59 Intake Total 1080 500 Balance 1080 500 Intake: Oral 1080 500 Other: Voiding Method Toilet # Voids 3 - Exam GENERAL EXAM: Alert, pleasant, 58-year-old white female, with frequent cough, with production of large amount of yellow colored sputum comfortable in no apparent distress. HEAD: Normocephalic/atraumatic. EYES: Normal reaction of pupils, equal size. Conjunctiva pink, sclera white. NOSE: Clear with pink turbinates. THROAT: No erythema or exudates. NECK: No masses, no JVD, no thyroid enlargement, no adenopathy. CHEST: No chest wall deformity. Symmetrical expansion. LUNGS: Equal air entry with no crackles. Diminished breath sounds at the bases, diffuse wheezes CVS: Regular rate and rhythm, normal S1 and S2, no gallops, no murmurs, no rubs ABDOMEN: Soft, nontender. No hepatosplenomegaly, normal bowel sounds, no guarding or rigidity. EXTREMITIES: No clubbing, no edema, no cyanosis, 2+ pulses and upper and lower extremities. MUSCULOSKELETAL: Muscle strength and tone normal. SPINE: No scoliosis or deformity SKIN: No rashes CENTRAL NERVOUS SYSTEM: Alert and oriented -3. No focal deficits, tone is normal in all 4 extremities. PSYCHIATRIC: Alert and oriented -3. Appropriate affect. Intact judgment and insight. - Labs CBC & Chem 7: 01/07/19 06:33 01/07/19 06:33 Labs: Abnormal Lab Results - Last 24 Hours (Table) 01/08/19 01/08/19 01/09/19 Range/Units 16:46 20:04 07:00 POC Glucose (mg/dL) 128 H 128 H 160 H (75-99) mg/dL 01/09/19 Range/Units 11:43 POC Glucose (mg/dL) 109 H (75-99) mg/dL Microbiology - Last 24 Hours (Table) 01/07/19 08:00 Gram Stain - Final Sputum Sputum Culture - Final Assessment and Plan Plan: Assessment: 1 left lower lobe pneumonia involving the posterior segment of the left lower lobe as the patient has an area of groundglass/consolidation measuring 2.3 x 1.8 cm, rule out bacterial pneumonia, rule out viral pneumonia. 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 Plan: Patient is doing well, improving, chest x-ray shows improvement in the appearance of the left lower lobe pneumonia, clinically stable, no fever or chills, no growth on the cultures. Patient is stable for discharge home, and she will need outpatient follow-up with Dr. Damico in the office for follow-up chest x-ray. I performed a history & physical examination of the patient and discussed their management with my nurse practitioner, Zaida Aguilar. I reviewed the nurse practitioner's note and agree with the documented findings and plan of care. Lung sounds are positive for diffuse wheezes throughout the lung dave. The findings and the impression was discussed with the patient. I attest to the documentation by the nurse practitioner. Time with Patient: Less than 30
--- NOTE | 2019-01-10 16:36 | P.DS ---
Providers Date of admission: 01/06/19 16:44 Expected date of discharge: 01/09/19 Attending physician: Connor Alvarez Consults: 01/06/19 11:43 Consult Physician Routine Consulting Provider: Maxwell Damico Consult Reason/Comments: CurtisRhoda's pt Do you want consulting provider notified?: Yes 01/06/19 16:02 Consult Physician Routine Consulting Provider: Yamil Keller Consult Reason/Comments: epistaxis Do you want consulting provider notified?: Yes [facility] Course: This is a 58-year-old female patient of Dr. 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 Neri at [facility] and Dr. Duong locally 8, history of right lower lobe resection due to Curtis back in 2014, history of obesity, chronic tobacco use and dependence-quit in July 2018, diabetes mellitus type 2. Patient states that she received influenza vaccine and Repatha injection. On Sunday, she started having fever, vomiting and diarrhea that continued until last evening. She complains of right-sided back soreness, no abdominal pain. She states she's had bloating every time she eats. She denies any alcohol intake at all. She states she has nocturia and voids at least 5 times during the night and only trickles during the day. She does have history of renal stones and underwent lithotripsy at [facility]. She stopped smoking completely in July of this year and prior to that she was down to 1 cigarette per day. She is complaining of sputum that is yellow and productive cough that is going on most of the year. Patient came into [facility] emergency center for evaluation. Vital signs were stable, white count 21.4, BUN 21 creatinine 1.11, blood sugar 120. Lactic acid 1.3, lipase 966. Troponin was negative. Urinalysis clear with nitrate and leukoesterase negative. EKG was sinus rhythm with no acute ST changes. In the ER, patient received 2 L of IV fluid, Zofran, Protonix, Decadron and was admitted to the [facility] floor. Consults are in place for pulmonary medicine and consult was admitted for ENT for epistaxis. Patient has had ongoing problems with epistaxis this afternoon had large clots. 01/07: The patient states that she is also on Rituxan her last dose was in October. This is scheduled every 6 months. Abdominal ultrasound showed possible nonobstructive renal calculus, fatty infiltration of the liver, small right renal cortical cysts. No gallstones. No dilated ducts within the liver. Patient instructed to follow low-fat and low carb diet. She states she has been on a low carb daily diet for the past 1-1/2 years. Patient has been seen by Dr. Keller for epistaxis and recommended Afrin spray for 3-5 days without worry for addiction, cool humidifier and Vaseline petroleum jelly intranasally. He recommends against saline spray. Epistaxis is improved. She states she did have a large clot the size of the palm of her hand yesterday. Solu-Medrol decreased to 40 mg every 12 hours. Levaquin has been switched to oral. Patient is complaining of overactive bladder with frequent nocturia. Pulmonary has added and Ambien for sleep. 01/08: Patient states that she is not ready for discharge today. 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 The patient took Ambien last night at 9:30 and did not fall asleep until 12:30 and only suffer 5 hours. She is very upset regarding insomnia. Solu-Medrol will be discontinued this evening and start oral prednisone for tomorrow. Clotrimazole added for oral thrush. Dr. Keller had ordered a sinus CAT scan which revealed no acute sinusitis. Some chronic changes noted. No nasal masses or polyps identified. Patient continues to have wheezing for which Symbicort changed to Pulmicort. Patient does have nebulizer at home. Anticipate she will be ready for discharge by tomorrow. 01/09: Patient has been afebrile, heart rate 84, blood pressure 138/70, pulse ox 97% on room air. Blood sugars running between 123 and 160. Repeat chest x-ray this morning shows patchy trace left basilar airspace disease likely resolving pneumonia and post lobectomy changes on the right. Patient states she only slept [address] Keller is not recommended Afrin for home. Patient will be discharged home today in stable condition. Discharge diagnoses: 1. Acute vomiting and diarrhea with dehydration secondary to gastroenteritis, resolved. 2. Acute pancreatitis, resolved. 3. COPD with chronic bronchitis, rule out pneumonia. 4. Acute epistaxis. 5. History of Curtis granulomatosis. 6. GERD. 4. Hyperglycemia. 5. Chronic tobacco use and dependence--patient quit July 2018. Discharge Plan: Return home Impression and plan of care have been directed as dictated by the signing physician. Lanette Mccarthy nurse practitioner acting as scribe for signing physician. Patient Condition at Discharge: Good Plan - Discharge Summary Discharge Rx Participant: No New Discharge Prescriptions: New Ipratropium-Albuterol Nebulize [Duoneb 0.5 mg-3 mg/3 ml Soln] 3 ml INHALATION RT-TID #90 ampul.neb Levofloxacin [Levaquin] 750 mg PO Q48H #3 tab Clotrimazole Treva [Mycelex Treva] 10 mg MUCOUS MEM 5XD #50 treva predniSONE 0 mg PO DIRECTED #30 tab Budesonide [Pulmicort] 0.5 mg INHALATION RT-BID #60 nebu Lisinopril [Zestril] 10 mg PO DAILY #30 tab Continue Pantoprazole Sodium [Protonix] 40 mg PO DAILY Albuterol Inhaler [Ventolin Hfa Inhaler] 1 - 2 puff INHALATION RT-Q6H PRN PRN Reason: Shortness Of Breath Evolocumab [Repatha Syringe] 140 mg SQ Q14D predniSONE 7.5 mg PO DAILY Calcium Carbonate/Vitamin D3 [Calcium 600-Vit D3 200 Tablet] 1 tab PO BID Discontinued Budesonide/Formoterol Fumarate [Symbicort 160-4.5 Mcg Inhaler] 2 puff INHALATION RT-BID Discharge Medication List Albuterol Inhaler [Ventolin Hfa Inhaler] 1 - 2 puff INHALATION RT-Q6H PRN 08/22/18 [History] Pantoprazole Sodium [Protonix] 40 mg PO DAILY 08/22/18 [History] Calcium Carbonate/Vitamin D3 [Calcium 600-Vit D3 200 Tablet] 1 tab PO BID 01/05/19 [History] Evolocumab [Repatha Syringe] 140 mg SQ Q14D 01/05/19 [History] predniSONE 7.5 mg PO DAILY 01/05/19 [History] Budesonide [Pulmicort] 0.5 mg INHALATION RT-BID #60 nebu 01/09/19 [Rx] Clotrimazole Treva [Mycelex Treva] 10 mg MUCOUS MEM 5XD #50 treva 01/09/19 [Rx] Ipratropium-Albuterol Nebulize [Duoneb 0.5 mg-3 mg/3 ml Soln] 3 ml INHALATION RT-TID #90 ampul.neb 01/09/19 [Rx] Levofloxacin [Levaquin] 750 mg PO Q48H #3 tab 01/09/19 [Rx] Lisinopril [Zestril] 10 mg PO DAILY #30 tab 01/09/19 [Rx] predniSONE 0 mg PO DIRECTED #30 tab 01/09/19 [Rx] Follow up Appointment(s)/Referral(s): Sara Duong MD [STAFF PHYSICIAN] - 01/17/19 3:15 pm (with Connor Jerome MD [Primary Care Provider] - 1 Week (office will call with appointment time) Discharge Disposition: HOME SELF-CARE
== END 2019-01-09 14:11 | disposition home or self-care (01) | DRG 193 ==
LOC: EC 19:42 → 4SSUR 22:50 → OBSVTOIN 01-06 16:44
PROVIDERS: ADMIT Internal Medicine; ATTEND Internal Medicine
DX: J18.9 Pneumonia, unspecified organism (principal); K85.90 Acute pancreatitis without necrosis or infection, unspecified; M31.30 Wegener's granulomatosis without renal involvement; J44.0 Chronic obstructive pulmonary disease with (acute) lower respiratory infection; J44.1 Chronic obstructive pulmonary disease with (acute) exacerbation; Z90.2 Acquired absence of lung [part of]; Z87.891 Personal history of nicotine dependence; E66.9 Obesity, unspecified; E11.65 Type 2 diabetes mellitus with hyperglycemia; Z87.442 Personal history of urinary calculi; R04.0 Epistaxis; Z79.52 Long term (current) use of systemic steroids; I25.2 Old myocardial infarction; T38.0X5A Adverse effect of glucocorticoids and synthetic analogues, initial encounter; N83.209 Unspecified ovarian cyst, unspecified side; K52.9 Noninfective gastroenteritis and colitis, unspecified; E86.0 Dehydration; K21.9 Gastro-esophageal reflux disease without esophagitis; Z68.32 Body mass index [BMI] 32.0-32.9, adult; N20.0 Calculus of kidney; Z79.899 Other long term (current) drug therapy; Z79.51 Long term (current) use of inhaled steroids; Z82.49 Family history of ischemic heart disease and other diseases of the circulatory system; I25.10 Atherosclerotic heart disease of native coronary artery without angina pectoris; G47.00 Insomnia, unspecified
CPT/HCPCS: 36415; 70486; 71046; 71260; 76705; 80053; 81003; 82550; 83036; 83605; 83690; 83735; 84100; 84484; 85025; 85027; 85610; 85730; 87070; 87205; 87502; 93005; 94640; 94760; 96361; 96374; 96375; 99285

== ENCOUNTER → 2019-02-03 | Outpatient (CLI) | payer BC ==
--- NOTE | 2019-02-03 08:35 | CT ---
EXAMINATION TYPE: CT abdomen pelvis wo con DATE OF EXAM: 02/03/2019 COMPARISON: None HISTORY: Calculus of kidney CT DLP: 921 mGycm Examination of the solid and hollow viscera is limited given the lack of contrast. FINDINGS: LUNG BASES: No evidence for nodule. No evidence for infiltrate. LIVER/GB: The gallbladder is unremarkable. No space-occupying hepatic lesion. PANCREAS: No pancreatic mass identified. No inflammatory process seen. SPLEEN: No evidence for splenomegaly. No intrasplenic lesions seen. ADRENALS: No adrenal nodules identified. No evidence for thickening. KIDNEYS: No evidence for renal mass. There are multiple bilateral renal calculi seen all of which are nonobstructing. 10-12 calculi are seen on the right the largest of which is noted within the lower p ole measuring 4 mm. On the left the largest calculus is seen within the upper pole measuring 6.7 mm. Number of calculi on the left are estimated at approximately 14-16. BOWEL: Appendix has a normal appearance. No evidence of bowel obstruction. No inflammatory process. Lymph nodes: No evidence for adenopathy greater than 1 cm. Abdominal aorta: Atheromatous changes seen. No evidence for aneurysm. Genital organs: No significant abnormality. Other: No significant abnormality. IMPRESSION: 1. Bilateral nonobstructing nephrolithiasis.
== END | disposition home or self-care (01) ==
LOC: RADCTMAIN 08:06
PROVIDERS: ATTEND Urology
DX: N20.0 Calculus of kidney (principal); Z88.5 Allergy status to narcotic agent; Z88.1 Allergy status to other antibiotic agents; Z88.2 Allergy status to sulfonamides
CPT/HCPCS: 74176

== ENCOUNTER → 2019-02-14 | Outpatient (CLI) | payer BC ==
--- NOTE | 2019-02-14 13:30 | CT ---
EXAMINATION TYPE: CT chest wo con DATE OF EXAM: 02/14/2019 COMPARISON: Chest CT dated 01/06/2019 HISTORY: H/o COPD. Shortness of breath. CT DLP: 340.9 mGycm. Automated Exposure Control for Dose Reduction was Utilized. TECHNIQUE: CT scan of the thorax is performed without IV contrast. FINDINGS: LUNGS: The previously seen left lower lobe consolidation has entirely resolved in the interim. Howeve r in the short-term interval new reticular nodular right lower lobe opacity has developed. Postsurgic al change of the right mediastinum with rightward mediastinal shift secondary to volume loss and surg ical sutures extending to the pleural surface from the mediastinal surface. Multilevel right-sided schafer bsegmental atelectasis. Mild emphysematous changes of the lungs. MEDIASTINUM: Lack of IV contrast is noted to limit evaluation for mediastinal and especially hilar ad enopathy. There are no definitive greater than 1 cm hilar or mediastinal lymph nodes. No cardiomega ly or pericardial effusion is seen. Mild coronary calcifications. OTHER: There are numerous defects subcentimeter renal calculi. Mild multilevel degenerative changes o f the spine. Mild degree hepatic steatosis. IMPRESSION: 1. Complete resolution of the left basilar opacity relating to resolved pneumonia. New reticular nodu lar right lower lobe opacity also appears as pneumonia. 2. Postsurgical changes of right hemithorax with right sided hemithorax volume loss and subsequent ri ghtward mediastinal shift. 3. Numerous bilateral nonobstructing renal calculi.
[2019-02-14 19:48] LABS: Immunoglobulin E 1.6 IU/mL (0.00-114.00)
[2019-02-15 11:47] LABS: Immunoglobulin A 81.5 mg/dL (60.0-350.0); Immunoglobulin M 39.2 mg/dL (40.0-280.0)
== END | disposition home or self-care (01) ==
LOC: RADCTMAIN 12:16
PROVIDERS: ATTEND Internal Medicine Critical Care Medicine
DX: J98.4 Other disorders of lung (principal); R91.1 Solitary pulmonary nodule; J44.1 Chronic obstructive pulmonary disease with (acute) exacerbation; Z98.890 Other specified postprocedural states
CPT/HCPCS: 71250; 82784; 82785; 85008

== ENCOUNTER 2019-02-19 11:01 | Day surgery (SDC) | payer BC ==
[~2019-02-19 11:01] MED LIST: ALBUTEROL NEB (CONC) 2.5 MG/0.5 ML INHALATION ONE; LACTATED RINGERS 1,000 ML IV SCH; LIDOCAINE 2% (PF) 20 MG/ML 5 ML VIAL INHALATION ONE; LIDOCAINE VISCOUS 300 MG/15 ML CUP MUCOUS MEM ONE; SODIUM CHLORIDE 0.9% 1,000 ML IV SCH
[2019-02-19 11:30] LABS: Glucose,Whole Blood 105 mg/dL (75-99)
[2019-02-19] MEDS ORDERED: LIDOCAINE 1% 20 ML VIAL (10MG/ML) FOR IV START INTRADERMA ONE (11:31)
[2019-02-19] MEDS ORDERED: PROPOFOL 10 MG/ML 20 ML VIAL IV ONE (11:58)
[2019-02-19] MEDS ORDERED: GLYCOPYRROLATE 0.2 MG/ML 2 ML VIAL ONE (11:58)
[2019-02-19] MEDS ORDERED: fentaNYL (PF) 50 MCG/ML 2 ML AMP ONE (11:58)
[2019-02-19] MEDS ORDERED: KETAMINE 10 MG/ML 20 ML VIAL ONE (11:58)
[2019-02-19] MEDS ORDERED: MIDAZOLAM 2 MG/2 ML VIAL ONE (11:58)
[2019-02-19] MEDS ORDERED: LIDOCAINE 2% INJ 20 MG/ML INTRATRACH ONE (12:05)
--- NOTE | 2019-02-19 12:16 | P.PCN ---
Date of Procedure: 02/19/19 Preoperative Diagnosis: Right lung pneumonia Postoperative Diagnosis: Right lung pneumonia Procedure(s) Performed: Bronchoscopy and the bronchioloalveolar lavage of the right upper lobe Anesthesia: MAC Surgeon: Maxwell Damico Estimated Blood Loss (ml): 0 Pathology: other Condition: stable Disposition: same day Indications for Procedure: Indication for procedure is persistent cough and congestion and a CAT scan of the chest revealing a new reticular nodular right lung pulmonary infiltrate consistent with pneumonia. Operative Findings: This is a bronchoscopy that was done under conscious sedation in the bronchoscopy suite. After achieving adequate sedation, a bite block was applied to the patient's mouth and following that the flexible bronchoscope was advanced chart reader into the posterior oropharynx and then upper airway inspection was done. Visualized airways into the pharynx, larynx, epiglottis, arytenoids, vallecula, true and false vocal cords and all of this it was structures were within normal limits. A total of 2 mL of 1% lidocaine was applied to the vocal cords and following that the bronchoscope was advanced into the upper trachea. Examination of the tracheal bronchial tree was done. There was a [id number] component of tracheal bronchomalacia with dynamic obstruction of the trachea and mobility of the membranous trachea with exhalation and coughing. Rest or secretions that were creamy white / beige in color were retained in the patient's trachea and these were easily suctioned out. Airways inspection was completed. Jazmin was sharp in the midline. Examination of the right side showed more respiratory secretions and mucous occupying the right mainstem bronchus. In the right lower lobe and right middle lobe was noted. The right upper lobe was patent as well as trifurcated into the apical anterior and posterior segments were noted. As such, the patient is postop right middle lobe/right lower lobe resection. Examination of the lymphatic though the left mainstem bronchus, left upper lobe bronchus and left lower bronchus and the various segments and subsegments all of these were within normal limits. The bronchoscope was then removed to the right upper lobe area where the anterior and the lateral segments were widely. The bronchioloalveolar lavage was done at the level of 80 the fluid was infused and approximately 25 mL was suctioned back. No complications. Therapeutic it was suctioning was done. Bronchoscope was removed and the patient was transferred recovery in a stable condition. Samples be sent for microbial analysis.
[2019-02-19 12:23] VITALS: TEMP 98
[2019-02-19 12:53] VITALS: RESP 16
[2019-02-19 13:12] VITALS: BP 145/81; PULSE 86
== END 2019-02-19 13:35 | disposition home or self-care (01) ==
LOC: ORWHC2ENDO 11:01
PROVIDERS: ATTEND Internal Medicine Critical Care Medicine
DX: J18.9 Pneumonia, unspecified organism (principal); J44.0 Chronic obstructive pulmonary disease with (acute) lower respiratory infection; J98.09 Other diseases of bronchus, not elsewhere classified; M31.30 Wegener's granulomatosis without renal involvement; M30.0 Polyarteritis nodosa; E11.9 Type 2 diabetes mellitus without complications; I25.2 Old myocardial infarction; K21.9 Gastro-esophageal reflux disease without esophagitis; E66.9 Obesity, unspecified; Z68.32 Body mass index [BMI] 32.0-32.9, adult; Z88.5 Allergy status to narcotic agent; Z88.1 Allergy status to other antibiotic agents; Z88.8 Allergy status to other drugs, medicaments and biological substances; Z87.891 Personal history of nicotine dependence; Z79.52 Long term (current) use of systemic steroids; Z79.899 Other long term (current) drug therapy; Z79.51 Long term (current) use of inhaled steroids; Z86.79 Personal history of other diseases of the circulatory system; Z82.49 Family history of ischemic heart disease and other diseases of the circulatory system; Z90.2 Acquired absence of lung [part of]
CPT/HCPCS: 94640; 88108; 88305; 87252; 87070; 87205; 87116; 87102; 87206; 31624; J2001 ×2; J2250; J3010; J2704

== ENCOUNTER → 2019-03-01 | Outpatient (CLI) | payer BC ==
--- NOTE | 2019-03-01 14:38 | NM ---
Nuclear medicine hepatobiliary scan. HISTORY: Pain. DOSAGE: The patient received 8 fluid oz of Ensure Plus and 4.4 mCi of Technetium 99m Choletec. FINDINGS: There is normal hepatic extraction. The gallbladder is seen by 30 minutes. There is bilia ry to bowel clearance by 20 minutes. Ejection fraction is 74%. IMPRESSION: 1. Normal hepatobiliary exam
== END | disposition home or self-care (01) ==
LOC: RADNMMAIN 11:49
PROVIDERS: ATTEND Internal Medicine
DX: R10.13 Epigastric pain (principal)
CPT/HCPCS: 78226; A9537

== ENCOUNTER → 2019-03-14 | Outpatient (CLI) | payer BC ==
--- NOTE | 2019-03-14 14:28 | XR ---
EXAMINATION TYPE: XR abdomen 1V DATE OF EXAM: 03/14/2019 COMPARISON: CT abdomen pelvis 02/03/2019 INDICATION: Renal calculi TECHNIQUE: Single view abdomen FINDINGS: There is a normal bowel gas pattern. Psoas margins are normal. No organomegaly is present. Multiple bilateral renal calculi are evident. Multiple phleboliths are within the pelvis. IMPRESSION: 1. Extensive bilateral renal calculi.
== END | disposition home or self-care (01) ==
LOC: RADXRMAIN 13:37
PROVIDERS: ATTEND Urology
DX: N20.0 Calculus of kidney (principal)
CPT/HCPCS: 74018

== ENCOUNTER 2019-04-16 01:18 | Emergency (ER) | payer BC ==
[2019-04-16 01:37] VITALS: TEMP 98
[2019-04-16] MEDS ORDERED: PROPARACAINE 0.5% OPHTH DROPS 15 ML BTL BOTH EYES STA (02:14)
[2019-04-16] MEDS ORDERED: CIPROFLOXACIN 0.3% OPHTH SOLN 5 ML BTL BOTH EYES ONE (03:00)
--- NOTE | 2019-04-16 03:09 | ED ---
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 She states that she has had going on a few days now of bilateral eye symptoms. The initial onset was some redness, then also some burning and a feeling of grittiness. She was seen 2 days ago at an urgent care clinic and was started on Polytrim drops. The patient states that despite using the drops she has had an increase in the redness and now having some whitish matting of the lids. The patient states that the vision is a touch blurry. She denies jerel pain. In addition she did have a nosebleed earlier today. chief complaint: eye redness -: days(s) Onset Description: gradual Location: both eyes If Injury: none Eye Symptoms: burning, redness, itching Severity: moderate If Pain, Quality: other (Burning) Consistency: constant Associated Symptoms: other (Epistaxis) Treatments Prior to Arrival: none - Related Data Home Medications Medication Instructions Recorded Confirmed Albuterol Inhaler [Ventolin Hfa 1 - 2 puff INHALATION RT-Q6H PRN 08/22/18 02/19/19 Inhaler] Pantoprazole Sodium [Protonix] 40 mg PO DAILY 08/22/18 02/19/19 Calcium Carbonate/Vitamin D3 1 tab PO BID 01/05/19 02/19/19 [Calcium 600-Vit D3 200 Tablet] predniSONE 10 mg PO QAM 01/05/19 02/19/19 Mirabegron [Myrbetriq] 25 mg PO DAILY 02/17/19 02/19/19 Previous Rx's Medication Instructions Recorded Ipratropium-Albuterol Nebulize 3 ml INHALATION RT-TID #90 01/09/19 [Duoneb 0.5 mg-3 mg/3 ml Soln] ampul.neb Allergies Allergy/AdvReac Type Severity Reaction Status Date / Time azathioprine [From Imuran] Allergy Vomiting Verified 04/16/19 01:37 codeine Allergy Nausea Verified 04/16/19 01:37 metronidazole [From Flagyl] Allergy Anaphylaxis Verified 04/16/19 01:37 methotrexate AdvReac Unknown Verified 04/16/19 01:37 Review of Systems ROS Statement: Those systems with pertinent positive or pertinent negative responses have been documented in the HPI. ROS Other: All systems not noted in ROS Statement are negative. Constitutional: Denies: fever, chills Eyes: Reports: eye pain, eye discharge. Denies: vision change ENT: Reports: epistaxis, congestion Respiratory: Reports: cough Cardiovascular: Denies: chest pain, palpitations, syncope Gastrointestinal: Denies: abdominal pain, nausea, vomiting Genitourinary: Denies: dysuria Musculoskeletal: Denies: back pain Skin: Denies: rash Neurological: Denies: headache, weakness, numbness Past Medical History Past Medical History: Diabetes Mellitus, GERD/Reflux, Myocardial Infarction ([place]), Respiratory Disorder Additional Past Medical History / Comment(s): Wegners GPA 2014, Chemo for Wegners, endometriosis, ovarian cysts, STATES SILENT [place] 2015 AND BORDERLINE DM DUE TO CHRONIC PREDNISONE USE Last Myocardial Infarction Date:: 2015 History of Any Multi-Drug Resistant Organisms: C-DIFF Date of last positivie culture/infection: 2014 MDRO Source:: Stool Past Surgical History: Section Additional Past Surgical History / Comment(s): Right lung resection 2016, L humerus double compound fx repair, hemrrhoidectomy, colonoscopy Past Anesthesia/Blood Transfusion Reactions: No Reported Reaction Past Psychological History: No Psychological Hx Reported Smoking Status: Former smoker Past Alcohol Use History: None Reported Past Drug Use History: None Reported - Past Family History Mother Family Medical History: Coronary Artery Disease (CAD) Additional Family Medical History / Comment(s): SIX STENTS Father Family Medical History: Myocardial Infarction ([place]) Additional Family Medical History / Comment(s): Father at age 45 from myocardial infarction. Brother(s) Family Medical History: Hypertension Additional Family Medical History / Comment(s): Patient has 1 brother with hypertension and kidney stones. Sister(s) Family Medical History: No Reported History Additional Family Medical History / Comment(s): Patient has one sister with CHRONIC HYPERCOHDRIA AND GALLSTONES Daughter(s) Family Medical History: No Reported History Additional Family Medical History / Comment(s): Patient has 2 daughters with no major medical problems. General Exam Limitations: physical limitation General appearance: alert, in no apparent distress Head exam: Present: atraumatic, normocephalic Eye exam: Present: PERRL, EOMI, conjunctival injection. Absent: periorbital swelling, periorbital tenderness Expanded Pupils: Regular, Round: Bilateral, Reactive: Bilateral Sclera/Conjunctival: Injection: Bilateral Anterior chamber: Normal Inspection: Bilateral IOP (R) in mmH IOP (L) in mmH IOP measured with: other (iCare device) ENT exam: Present: normal oropharynx Neurological exam: Present: alert Skin exam: Present: warm, dry, intact, normal color. Absent: rash Course Vital Signs 04/16/19 01:32 Temperature 98 F Pulse Rate 84 Respiratory 18 Rate Blood Pressure 155/76 O2 Sat by Pulse 96 Oximetry Medical Decision Making - Medical Decision Making Patient's 59-year-old woman with bilateral conjunctivitis/scleritis. Suspect that this is due to Curtis's. Patient is declining course of prednisone here, stating that she is currently taking hydrocortisone 40 mg. She states that she is due to take her Rituxan within the coming days. I discussed the importance of close follow-up with her pot feeder also discussed the case with Dr. Bedoya, for ophthalmology. Per recommendation we'll start patient on Maxitrol drops and she'll follow with him in the clinic. 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 As we discussed, follow-up with the fast food cashier. If there is any trouble with the follow-up plan please return to emergency room. Is patient prescribed a controlled substance at d/c from ED?: No Referrals: Connor Alvarez MD [Primary Care Provider] - 1-2 days Renetta Bell MD [STAFF PHYSICIAN] - 1-2 days Ji Bedoya MD [STAFF PHYSICIAN] - 1-2 days
[2019-04-16] MEDS ORDERED: NEOMYCIN-POLYMYXIN-DEXAMETH OINT 3.5 GM TUBE BOTH EYES ONE (03:33)
[2019-04-16 03:57] VITALS: BP 149/72; PULSE 58; RESP 16
== END 2019-04-16 04:02 | disposition home or self-care (01) ==
LOC: EC 01:18
DX: H15.003 Unspecified scleritis, bilateral (principal); M31.30 Wegener's granulomatosis without renal involvement; R04.0 Epistaxis; K21.9 Gastro-esophageal reflux disease without esophagitis; Z87.891 Personal history of nicotine dependence; Z88.1 Allergy status to other antibiotic agents; Z88.5 Allergy status to narcotic agent; Z88.8 Allergy status to other drugs, medicaments and biological substances; Z79.52 Long term (current) use of systemic steroids; Z79.899 Other long term (current) drug therapy; Z53.29 Procedure and treatment not carried out because of patient's decision for other reasons
CPT/HCPCS: 99283

== ENCOUNTER → 2019-06-03 | Outpatient (CLI) | payer BC ==
[2019-06-03 12:14] LABS: Basophils # (A) 0.1 k/uL (0-0.2); Basophils % (A) 0 %; Eosinophils # (A) 0.2 k/uL (0-0.7); Eosinophils % (A) 2 %; HCT 42.5 % (34.0-46.0); HGB 13.4 gm/dL (11.4-16.0); Lymphocytes # (A) 1.3 k/uL (1.0-4.8); Lymphocytes % (A) 12 %; MCH 28.9 pg (25.0-35.0); MCHC 31.5 g/dL (31.0-37.0); MCV 91.9 fL (80.0-100.0); Mean Platelet Volume 6.7; Monocytes # (A) 0.5 k/uL (0-1.0); Monocytes % (A) 5 %; Neutrophils # (A) 8.5 k/uL (1.3-7.7); Neutrophils % (A) 80 %; Platelet Count 428 k/uL (150-450); RBC 4.63 m/uL (3.80-5.40); RDW 13.6 % (11.5-15.5); WBC 10.6 k/uL (3.8-10.6)
== END | disposition home or self-care (01) ==
LOC: LABPAT 10:50
PROVIDERS: ATTEND Urology
DX: Z01.818 Encounter for other preprocedural examination (principal); N20.0 Calculus of kidney
CPT/HCPCS: 36415; 80051; 82565; 84520; 85025

== ENCOUNTER → 2019-06-09 | Day surgery (SDC) | payer BC ==
[2019-06-06 14:51] VITALS: BMI 33.7
--- NOTE | 2019-06-06 21:22 | P.HPIHPCON ---
History of Present Illness H&P Date: 06/09/19 Chief Complaint: right flank pain Ms Carlisle is 59 yo female with hx of multiple non-obstructing renal stones. She is symptomatic from her right sided stones. Of note she has multiple bilateral stone. I discussed the option of ureteroscopy vs ESWL. I discussed risk and carlos efit of each approach. She agreed to proceed with ESWL, I discussed with her risk which includes bleeding, infection, renal hematoma, potential need for repeated treatment. I also discussed with her the risk from anesthesia. I also discussed with her potential that we might need repeated treatment to completely address her right sided stone burden. She understood all risks and agreed to proceed Consent for Procedure: I have explained the operation/procedure to the patient, including the risks, benefits, side effects, alternative therapies (including not receiving the proposed treatment or service), the likelihood of the patient achieving his/her goals, and potential recuperation problems for the procedure/sedation/analgesia, as well as any blood products, if indicated. I also explained to the patient the risks, benefits and side effects of the alternatives, as well as the risks related to not receiving the proposed procedure, care, treatment, or services. Past Medical History Past Medical History: Diabetes Mellitus, GERD/Reflux, [place] Infarction ([place]), Respiratory Disorder Additional Past Medical History / Comment(s): Hx. of Curtis's. Chemo for Wegeners, endometriosis, ovarian cysts, STATES SILENT [place] 2015 AND BORDERLINE DM DUE TO CHRONIC PREDNISONE USE. Last Myocardial Infarction Date:: 2015 History of Any Multi-Drug Resistant Organisms: C-DIFF Date of last positivie culture/infection: 2014 MDRO Source:: Stool Past Surgical History: Section Additional Past Surgical History / Comment(s): Right lung resection 2016, L humerus double compound fx repair, colonoscopy, Hemorrhoidectomy. Past Anesthesia/Blood Transfusion Reactions: No Reported Reaction Smoking Status: Former smoker - Past Family History Mother Family Medical History: Coronary Artery Disease (CAD) Additional Family Medical History / Comment(s): SIX STENTS Father Family Medical History: [place]ocardial Infarction ([place]) Additional Family Medical History / Comment(s): Father at age 45 from myocardial infarction. Brother(s) Family Medical History: Hypertension Additional Family Medical History / Comment(s): Patient has 1 brother with hypertension and kidney stones. Sister(s) Family Medical History: No Reported History Additional Family Medical History / Comment(s): Patient has one sister with CHRONIC HYPERCOHDRIA AND GALLSTONES Daughter(s) Family Medical History: No Reported History Additional Family Medical History / Comment(s): Patient has 2 daughters with no major medical problems. Medications and Allergies Home Medications Medication Instructions Recorded Confirmed Type Albuterol Inhaler [Ventolin Hfa 1 - 2 puff INHALATION RT-Q6H PRN 08/22/18 06/06/19 History Inhaler] Pantoprazole Sodium [Protonix] 40 mg PO DAILY 08/22/18 06/06/19 History Calcium Carbonate/Vitamin D3 1 tab PO BID 01/05/19 06/06/19 History [Calcium 600-Vit D3 200 Tablet] Ipratropium-Albuterol Nebulize 3 ml INHALATION RT-TID #90 01/09/19 06/06/19 Rx [Duoneb 0.5 mg-3 mg/3 ml Soln] ampul.neb Mirabegron [Myrbetriq] 25 mg PO DAILY 02/17/19 06/06/19 History Hydrocortisone 25 mg PO AC-BRKFST 06/06/19 06/06/19 History Hydrocortisone [Cortef] 15 mg PO HS 06/06/19 06/06/19 History Allergies Allergy/AdvReac Type Severity Reaction Status Date / Time azathioprine [From Imuran] Allergy Vomiting Verified 06/06/19 14:35 codeine Allergy Nausea Verified 06/06/19 14:35 metronidazole [From Flagyl] Allergy Anaphylaxis Verified 06/06/19 14:35 methotrexate AdvReac Unknown Verified 06/06/19 14:35
[~2019-06-09] MED LIST changes: -ALBUTEROL NEB (CONC) 2.5 MG/0.5 ML INHALATION ONE; +KETAMINE 10 MG/ML 20 ML VIAL ONE; +LIDOCAINE 1% (10MG/ML) FOR IV START INTRADERMA PRN; -LIDOCAINE 2% (PF) 20 MG/ML 5 ML VIAL INHALATION ONE; -LIDOCAINE VISCOUS 300 MG/15 ML CUP MUCOUS MEM ONE; +MIDAZOLAM 2 MG/2 ML VIAL ONE; +PROPOFOL 10 MG/ML 20 ML VIAL IV ONE; +Pre Op ABX Message 1 EACH MISC MISCELLANE ONE; -SODIUM CHLORIDE 0.9% 1,000 ML IV SCH; +fentaNYL (PF) 50 MCG/ML 2 ML AMP ONE
--- NOTE | 2019-06-09 09:54 | XR ---
KUB HISTORY: Kidney stones, lithotripsy Frontal KUB submitted and correlated to prior CT 02/03/2019 Multiple calcifications are scattered over the bilateral kidneys. Largest calcification lower pole th e right kidney measures approximately 5 mm, calcification overlying the's 10 calcifications are prese nt on each side. Multiple calcifications within the pelvis are likely vascular. No evident bowel obst ruction or pneumoperitoneum. IMPRESSION: Bilateral nephrolithiasis.
[2019-06-09 10:29] LABS: Glucose,Whole Blood 106 mg/dL (75-99)
[2019-06-09 10:36] VITALS: TEMP 97.4
--- NOTE | 2019-06-09 11:38 | P.OP ---
Date of Procedure: 06/09/19 Preoperative Diagnosis: right sided renal calculi Postoperative Diagnosis: same Procedure(s) Performed: right ESWL Implants: none Anesthesia: other (sedation ) Surgeon: Obed Alarcon Estimated Blood Loss (ml): 0 Pathology: none sent Condition: stable Disposition: PACU Indications for Procedure: Ms Carlisle is 59 yo female with hx of multiple non-obstructing renal stones. She is symptomatic from her right sided stones. Of note she has multiple bilateral stone. I discussed the option of ureteroscopy vs ESWL. I discussed risk and benefit of each approach. She agreed to proceed with ESWL, I discussed with her risk which includes bleeding, infection, renal hematoma, potential need for repeated treatment. I also discussed with her the risk from anesthesia. I also discussed with her potential that we might need repeated treatment to completely address her right sided stone burden. She understood all risks and agreed to proceed Operative Findings: radiopaque stone in the lower pole Description of Procedure: The patient was taken to the operating room and placed on the Dornier Compact Delta lithotripter in the supine position. The calculus was seen on biplanar fluoroscopy. Once the patient was properly positioned and sedated, lithotripsy was performed. The energy level was gradually increased per protocol, to an energy level of 4 for first 1250 shocks, then increased to 5 for the additional 1250 shocks. A total of 2500 shocks were given at a rate of 80 shocks per minute. Fluoroscopy was utilized at a minimum to ensure proper positioning and determine the treatment status. There was minimal fragmentation of stone . The patient tolerated the procedure well was taken to the recovery room in stable condition. Instructions were given to strain the urine, and the patient will follow-up in one week.
[2019-06-09 11:53] VITALS: PULSE 86; RESP 18
[2019-06-09 12:02] VITALS: BP 155/74
== END ==
LOC: ORWHC2ENDO 09:20
PROVIDERS: ATTEND Urology
DX: N20.0 Calculus of kidney (principal); I25.2 Old myocardial infarction; M31.30 Wegener's granulomatosis without renal involvement; J44.9 Chronic obstructive pulmonary disease, unspecified; E11.9 Type 2 diabetes mellitus without complications; K21.9 Gastro-esophageal reflux disease without esophagitis; Z87.891 Personal history of nicotine dependence; Z90.2 Acquired absence of lung [part of]; Z79.51 Long term (current) use of inhaled steroids; Z79.52 Long term (current) use of systemic steroids; Z79.899 Other long term (current) drug therapy; Z87.442 Personal history of urinary calculi; Z88.1 Allergy status to other antibiotic agents; Z88.5 Allergy status to narcotic agent; Z88.8 Allergy status to other drugs, medicaments and biological substances; Z98.890 Other specified postprocedural states; Z92.21 Personal history of antineoplastic chemotherapy; Z86.19 Personal history of other infectious and parasitic diseases; Z98.891 History of uterine scar from previous surgery; Z82.49 Family history of ischemic heart disease and other diseases of the circulatory system; Z84.1 Family history of disorders of kidney and ureter; Z83.79 Family history of other diseases of the digestive system
CPT/HCPCS: 74018; 50590; J2250; J3010; J2704

== ENCOUNTER 2019-07-14 13:49 | Emergency (ER) | payer BC ==
--- NOTE | 2019-07-14 15:03 | ED ---
Eye Problem HPI - General Chief complaint: Eye Problems Stated complaint: right side face, tingling right arm Time Seen by Provider: 07/14/19 14:04 Source: patient Mode of arrival: ambulatory Limitations: no limitations - History of Present Illness Initial comments: Patient is a 59-year-old female presenting to the emergency Department with complaints of right eye irritation and tingling into her right arm and since this morning. Patient has a history of Curtis's disease and states she takes chronic steroids. Patient states she woke up this morning and saw some redness of her right eye. Patient states this is not abnormal and sometimes has these episodes given her condition. Patient states that throughout the morning she saw swelling of the right side of her face into her right shoulder and her right arm. Patient states she is also having some tingling into her right arm. Patient got concerned and called her atm technician who recommended she go into the ER. She denies any recent fever, chills. There are no rashes. Patient denies any chest pain, shortness of breath, headache, lightheadedness. She denies any weakness. She denies any foreign bodies into her eye. She has no other complaints at this time. - Related Data Home Medications Medication Instructions Recorded Confirmed Albuterol Inhaler (Bulk) [Ventolin 1 - 2 puff INHALATION RT-Q6H PRN 08/22/18 06/09/19 Hfa Inhaler (Bulk)] Pantoprazole Sodium [Protonix] 40 mg PO DAILY 08/22/18 06/09/19 Calcium Carbonate/Vitamin D3 1 tab PO BID 01/05/19 06/09/19 [Calcium 600-Vit D3 200 Tablet] Mirabegron [Myrbetriq] 25 mg PO DAILY 02/17/19 06/09/19 Hydrocortisone 25 mg PO AC-BRKFST 06/06/19 06/09/19 Hydrocortisone [Cortef] 15 mg PO HS 06/06/19 06/09/19 Budesonide-Formot 160-4.5 Mcg 2 puff INHALATION BID 06/09/19 06/09/19 [Symbicort 160-4.5 Mcg Inhaler] Lisinopril [Zestril] 5 mg PO DAILY 06/09/19 06/09/19 Previous Rx's Medication Instructions Recorded Ipratropium-Albuterol Nebulize 3 ml INHALATION RT-TID #90 01/09/19 [Duoneb 0.5 mg-3 mg/3 ml Soln] ampul.neb Ibuprofen 600 mg PO Q8H PRN #30 tab 06/09/19 Allergies Allergy/AdvReac Type Severity Reaction Status Date / Time azathioprine [From Imuran] Allergy Vomiting Verified 07/14/19 13:54 codeine Allergy Nausea Verified 07/14/19 13:54 metronidazole [From Flagyl] Allergy Anaphylaxis Verified 07/14/19 13:54 methotrexate AdvReac Unknown Verified 07/14/19 13:54 Review of Systems ROS Statement: Those systems with pertinent positive or pertinent negative responses have been documented in the HPI. ROS Other: All systems not noted in ROS Statement are negative. Past Medical History Past Medical History: Diabetes Mellitus, GERD/Reflux, Myocardial Infarction ([place] ), Respiratory Disorder Additional Past Medical History / Comment(s): Hx. of Curtis's. Chemo for Wegeners, endometriosis, ovarian cysts, STATES SILENT [place] 2015 AND BORDERLINE DM DUE TO CHRONIC PREDNISONE USE. Last Myocardial Infarction Date:: 2015 History of Any Multi-Drug Resistant Organisms: C-DIFF Date of last positivie culture/infection: 2014 MDRO Source:: Stool Past Surgical History: Section Additional Past Surgical History / Comment(s): Right lung resection 2016, L humerus double compound fx repair, colonoscopy, Hemorrhoidectomy. Past Anesthesia/Blood Transfusion Reactions: No Reported Reaction Past Psychological History: No Psychological Hx Reported Smoking Status: Former smoker - Past Family History Mother Family Medical History: Coronary Artery Disease (CAD) Additional Family Medical History / Comment(s): SIX STENTS Father Family Medical History: Myocardial Infarction ([place]) Additional Family Medical History / Comment(s): Father at age 45 from myocardial infarction. Brother(s) Family Medical History: Hypertension Additional Family Medical History / Comment(s): Patient has 1 brother with hypertension and kidney stones. Sister(s) Family Medical History: No Reported History Additional Family Medical History / Comment(s): Patient has one sister with CHRONIC HYPERCOHDRIA AND GALLSTONES Daughter(s) Family Medical History: No Reported History Additional Family Medical History / Comment(s): Patient has 2 daughters with no major medical problems. General Exam - General Exam Comments Initial Comments: GENERAL: Well-appearing, well-nourished and in no acute distress. HEAD: Atraumatic, normocephalic. There is no facial swelling present. EYES: Pupils equal round and reactive to light, extraocular movements intact, sclera anicteric, conjunctiva are normal. Mild subconjunctival hemorrhage on the medial aspect of the right side. IOP 17 bilateral. ENT: TMs normal, nares patent, oropharynx clear without exudates. Moist mucous membranes. NECK: Normal range of motion, supple without lymphadenopathy or JVD. LUNGS: Breath sounds clear to auscultation bilaterally and equal. No wheezes rales or rhonchi. HEART: Regular rate and rhythm without murmurs, rubs or gallops. ABDOMEN: Soft, nontender, normoactive bowel sounds. No guarding, no rebound. No masses appreciated. : Deferred EXTREMITIES: Normal range of motion, no pitting or edema. No clubbing or cyanosis. There is no swelling of the right upper extremity. Neurovascular intact. Strength is 5 out of 5 upper and lower extremities. NEUROLOGICAL: Cranial nerves II through XII grossly intact. Normal speech, normal gait. PSYCH: Normal mood, normal affect. SKIN: Warm, Dry, normal turgor, no rashes or lesions noted. Limitations: no limitations Course Vital Signs 07/14/19 07/14/19 07/14/19 13:50 15:50 17:06 Temperature 98.1 F 98.7 F Pulse Rate 92 92 85 Respiratory 18 18 16 Rate Blood Pressure 188/93 185/97 167/94 O2 Sat by Pulse 97 96 98 Oximetry - Reevaluation(s) Reevaluation #1: 07/14/19 15:30 Upon reevaluation, patient started developing nausea, lightheadedness, and has feeling hot flashes. She states she has not felt this way all day. Patient will be evaluated for the dizziness. Labs, EKG, fluids were ordered. Medical Decision Making - Medical Decision Making Patient is a 59-year-old female here for right eye irritation as well as tingling into her right upper extremity. Patient has history of Weneger's disease. She takes steroids chronically. Upon examination, the patient has mild subconjunctival hemorrhage on the medial aspect the right eye, no other abnormal findings. There is no swelling of the right side of her face or arm. After reviewing her charts, patient was rechecked and was found to be complaining of nausea and lightheadedness. Patient states this just started and she's never had these episodes. EKG and lab work was then obtained. EKG showed no acute findings. Lab work is unremarkable. Patient was given fluids and states she feels improvement. I discussed with patient that her exam and workup today is completely normal. She can follow up with her atm technician. Patient is in agreement with this plan of care. She is stable for discharge. Return parameters were discussed with the patient she verbalized understanding. Case discussed with Dr. Nuñez. - Lab Data Result diagrams: 07/14/19 15:17 07/14/19 15:17 Lab Results 07/14/19 07/14/19 07/14/19 Range/Units 15:17 15:17 15:17 WBC 8.6 (3.8-10.6) k/uL RBC 4.62 (3.80-5.40) m/uL Hgb 13.4 (11.4-16.0) gm/dL Hct 40.9 (34.0-46.0) % MCV 88.5 (80.0-100.0) fL MCH 29.0 (25.0-35.0) pg MCHC 32.7 (31.0-37.0) g/dL RDW 13.2 (11.5-15.5) % Plt Count 409 (150-450) k/uL Neutrophils % 76 % Lymphocytes % 16 % Monocytes % 4 % Eosinophils % 1 % Basophils % 1 % Neutrophils # 6.5 (1.3-7.7) k/uL Lymphocytes # 1.4 (1.0-4.8) k/uL Monocytes # 0.3 (0-1.0) k/uL Eosinophils # 0.1 (0-0.7) k/uL Basophils # 0.0 (0-0.2) k/uL Sodium 139 (137-145) mmol/L Potassium 4.0 (3.5-5.1) mmol/L Chloride 104 (98-107) mmol/L Carbon Dioxide 24 (22-30) mmol/L Anion Gap 11 mmol/L BUN 15 (7-17) mg/dL Creatinine 0.80 (0.52-1.04) mg/dL Est GFR (CKD-EPI)AfAm >90 (>60 ml/min/1.73 sqM) Est GFR (CKD-EPI)NonAf 80 (>60 ml/min/1.73 sqM) Glucose 109 H (74-99) mg/dL Calcium 10.1 (8.4-10.2) mg/dL Total Bilirubin 0.3 (0.2-1.3) mg/dL AST 23 (14-36) U/L ALT 33 (4-34) U/L Alkaline Phosphatase 73 (38-126) U/L Total Protein 7.3 (6.3-8.2) g/dL Albumin 4.7 (3.5-5.0) g/dL Urine Color Colorless Urine Appearance Clear (Clear) Urine pH 6.5 (5.0-8.0) Ur Specific [place] 1.003 (1.001-1.035) Urine Protein Negative (Negative) Urine Glucose (UA) Negative (Negative) Urine Ketones Negative (Negative) Urine Blood Negative (Negative) Urine Nitrite Negative (Negative) Urine Bilirubin Negative (Negative) Urine Urobilinogen <2.0 (<2.0) mg/dL Ur Leukocyte Esterase Negative (Negative) - EKG Data EKG Comments: Ventricular rate 95, P interval 124, QTC 480. Normal sinus rhythm. Normal ECG. No signs of acute ischemia. Disposition Clinical Impression: Dehydration, Subconjunctival hemorrhage of right eye Disposition: HOME SELF-CARE Condition: Stable Instructions (If sedation given, give patient instructions): Subconjunctival Hemorrhage (ED) Additional Instructions: Please return to the Emergency Department if symptoms worsen or any other concerns. Follow-up with atm technician as discussed. Increase fluid intake. Is patient prescribed a controlled substance at d/c from ED?: No Referrals: Connor Alvarez MD [Primary Care Provider] - 1-2 days
[2019-07-14] MEDS ORDERED: SODIUM CHLORIDE 0.9% 500 ML 500 ML IV STA (15:29)
[2019-07-14 16:09] LABS: Appearance,Urine Clear (Clear); Bilirubin,Urine Negative (Negative); Blood,Urine Negative (Negative); Color,Urine Colorless; Glucose,Urine (UA) Negative (Negative); Ketones,Urine Negative (Negative); Leukocyte Esterase,Urine Negative (Negative); Nitrite,Urine Negative (Negative); PH, Urine 6.5 (5.0-8.0); Protein,Urine Negative (Negative); Specific Gravity,Urine 1.003 (1.001-1.035); Urobilinogen,Urine <2.0 mg/dL (<2.0)
[2019-07-14 16:10] LABS: Basophils % (A) 1 %; Eosinophils # (A) 0.1 k/uL (0-0.7); Eosinophils % (A) 1 %; HCT 40.9 % (34.0-46.0); HGB 13.4 gm/dL (11.4-16.0); Lymphocytes # (A) 1.4 k/uL (1.0-4.8); Lymphocytes % (A) 16 %; MCHC 32.7 g/dL (31.0-37.0); MCV 88.5 fL (80.0-100.0); Mean Platelet Volume 6.6; Monocytes # (A) 0.3 k/uL (0-1.0); Monocytes % (A) 4 %; Neutrophils # (A) 6.5 k/uL (1.3-7.7); Neutrophils % (A) 76 %; Platelet Count 409 k/uL (150-450); RBC 4.62 m/uL (3.80-5.40); RDW 13.2 % (11.5-15.5); WBC 8.6 k/uL (3.8-10.6)
[2019-07-14 16:15] LABS: ALT 33 U/L (4-34); AST 23 U/L (14-36); African American GFR (CKD) >90 (>60 ml/min/1.73 sqM); Albumin 4.7 g/dL (3.5-5.0); Alkaline Phosphatase 73 U/L (38-126); Anion Gap 11 mmol/L; Blood Urea Nitrogen 15 mg/dL (7-17); Calcium 10.1 mg/dL (8.4-10.2); Carbon Dioxide 24 mmol/L (22-30); Chloride 104 mmol/L (98-107); Glucose 109 mg/dL (74-99); Non-African American GFR(CKD) 80 (>60 ml/min/1.73 sqM); Sodium 139 mmol/L (137-145); Total Bilirubin 0.3 mg/dL (0.2-1.3); Total Protein 7.3 g/dL (6.3-8.2)
[2019-07-14 17:07] VITALS: BP 167/94; PULSE 85; RESP 16; TEMP 98.7
== END 2019-07-14 17:07 | disposition home or self-care (01) ==
LOC: EC 13:49
DX: H11.31 Conjunctival hemorrhage, right eye (principal); E86.0 Dehydration; E11.9 Type 2 diabetes mellitus without complications; I25.2 Old myocardial infarction; K21.9 Gastro-esophageal reflux disease without esophagitis; Z79.51 Long term (current) use of inhaled steroids; Z79.52 Long term (current) use of systemic steroids; Z79.899 Other long term (current) drug therapy; Z88.1 Allergy status to other antibiotic agents; Z88.5 Allergy status to narcotic agent; Z88.8 Allergy status to other drugs, medicaments and biological substances; Z87.891 Personal history of nicotine dependence
CPT/HCPCS: 36415; 80053; 81003; 85025; 93005; 96360; 99283

== ENCOUNTER → 2019-08-20 | Outpatient (CLI) | payer BC ==
--- NOTE | 2019-08-20 10:26 | MR ---
EXAMINATION TYPE: MR brain wo/w con DATE OF EXAM: 08/20/2019 COMPARISON: None HISTORY: Bilateral eyelid swelling, diplopia, hx of Wagners TECHNIQUE: Multiplanar, multisequence images of the brain and brainstem is performed without and with IV contras t, utilizing 7.5 mL intravenous Gadavist . FINDINGS: Diffusion weighted images demonstrate no evidence of a recent infarct or other diffusion ab normality. There is no extra-axial fluid collection or significant white matter signal abnormality. The ventricular system and cisternal spaces are normal in size and appearance. The brain volume is age appropriate. Midline structures demonstrate normal morphology. The craniocervical junction appears within normal limits. Post contrast images demonstrate no abnormal enhancement. The dural venous sinuses appear pa tent. Changes of chronic sinusitis noted. White matter: There are approximately 3 focal areas of abnormal signal seen scattered throughout the white matter. All measure less than 5 mm. No enhancing lesions. Findings are nonspecific. There is a small amount of fluid surrounding the optic nerves bilaterally which is a nonspecific find ing. Craniocervical junction maintained. Sella turcica has a normal appearance. IMPRESSION: 1. Trace amount fluid surrounding the optic nerves can occasionally be associated with increased intr acranial pressure or papilledema correlate clinically with ocular exam. Craniocervical junction prese rved. Additionally, cannot exclude a area of enhancement involving the posterior optic nerve bilatera lly. Recommend MRI of the orbits and clinical correlation. 2. There is an area of low signal measuring 9 mm within the right temporal lobe. There is no correspo nding enhancement. This could be related either remote hemorrhagic infarct or calcification. No enhan cing lesion. Cryptic AVM also the differential diagnosis. Recommend a follow-up 3 month MRI brain to confirm stability. 3. Minimal nonspecific white matter changes could been the basis of hypertension or remote focal tiny areas remote microvascular ischemia.
[2019-08-20 11:32] LABS: T4, Free (Free Thyroxine) 1.01 ng/dL (0.78-2.19)
[2019-08-21 11:25] LABS: HLA B27 NEGATIVE
[2019-08-21 14:25] LABS: C-ANCA <1:20 Titer (<1:20)
[2019-08-22 09:56] LABS: Angiotensin-1 Converting Enz. 11 U/L (8-52)
== END | disposition home or self-care (01) ==
LOC: RADMRIMAIN 08:07
PROVIDERS: ATTEND Ophthalmology
DX: R90.89 Other abnormal findings on diagnostic imaging of central nervous system (principal); H20.013 Primary iridocyclitis, bilateral
CPT/HCPCS: 86255; 85549; 86812; 84439; 82164; 84443; 70553; A9585

== ENCOUNTER → 2019-09-02 | Outpatient (CLI) | payer BC ==
--- NOTE | 2019-09-02 15:31 | XR ---
EXAMINATION TYPE: XR KUB DATE OF EXAM: 09/02/2019 3:25 PM CLINICAL HISTORY: Bilateral renal calculi TECHNIQUE: Single supine KUB image of the abdomen is obtained. COMPARISON: None. FINDINGS: There are bilateral numerous renal calculi greater than 20 on each side with the largest bi laterally both measuring 6 mm. Slight right hemidiaphragm elevation noted. Left lung base as well aer ated. Moderate degenerative change of the lumbosacral junction and hips. No dilated overlying bowel. Numerous presumably phleboliths seen within the pelvis. IMPRESSION: Numerous bilateral renal calculi (greater than 20 of each kidney) with the largest on bot h sides measuring 6 mm.
== END | disposition home or self-care (01) ==
LOC: RADXRMAIN 15:02
PROVIDERS: ATTEND Urology
DX: N20.0 Calculus of kidney (principal)
CPT/HCPCS: 74018

== ENCOUNTER 2019-10-16 20:54 | Inpatient (IN) | payer BC ==
[2019-10-16] MEDS ORDERED: MORPHINE SULFATE 4 MG/ML SYRINGE IVP STA (21:09)
[2019-10-16] MEDS ORDERED: SODIUM CHLORIDE 0.9% 1,000 ML IV STA (21:09)
[2019-10-16] MEDS ORDERED: ONDANSETRON 4 MG/2 ML VIAL IVP STA (21:09)
--- NOTE | 2019-10-16 21:19 | ED ---
General Adult HPI - General Chief complaint: Abdominal Pain Stated complaint: NVD Time Seen by Provider: 10/16/19 20:58 Source: patient, EMS, RN notes reviewed Mode of arrival: EMS - History of Present Illness Initial comments: 59-year-old female with a past medical history diabetes mellitus, GERD, hypertension, [place] presents to the emergency room for a chief of abdominal pain. Patient has had diarrhea for about 3 weeks now. States this happens daily. Yesterday she started to have nausea and vomiting as well. She states she also started to have lower abdominal pain. Patient denies fevers or chills. Patient has no other complaints at this time including shortness of breath, chest pain, headache, or visual changes. - Related Data Home Medications Medication Instructions Recorded Confirmed Pantoprazole Sodium [Protonix] 40 mg PO DAILY 08/22/18 10/16/19 Calcium Carbonate/Vitamin D3 1 tab PO BID 01/05/19 10/16/19 [Calcium 600-Vit D3 200 Tablet] Hydrocortisone 25 mg PO DAILY 06/06/19 10/16/19 Hydrocortisone [Cortef] 15 mg PO DAILY@1500 06/06/19 10/16/19 Budesonide-Formot 160-4.5 Mcg 2 puff INHALATION RT-BID 06/09/19 10/16/19 [Symbicort 160-4.5 Mcg Inhaler] Albuterol Sulfate [Ventolin HFA] 2 puff INHALATION RT-Q4H PRN 10/16/19 10/16/19 Cholecalciferol [Vitamin D3 (25 5,000 unit PO DAILY 10/16/19 10/16/19 Mcg = 1000 Iu)] DULoxetine HCL [Cymbalta] 20 mg PO DAILY 10/16/19 10/16/19 Hydrochlorothiazide 12.5 mg PO DAILY 10/16/19 10/16/19 [hydroCHLOROthiazide] Ibuprofen 600 mg PO TID 10/16/19 10/16/19 Ipratropium-Albuterol Nebulize 3 ml INHALATION RT-HS 10/16/19 10/16/19 [Duoneb 0.5 mg-3 mg/3 ml Soln] Mirabegron [Myrbetriq] 50 mg PO DAILY 10/16/19 10/16/19 Nature's Plus Ultra Juice Greens 1 tab PO BID 10/16/19 10/16/19 Ondansetron HCl [Zofran] 4 mg PO BID PRN 10/16/19 10/16/19 lisinopriL 20 mg PO DAILY 10/16/19 10/16/19 Previous Rx's Medication Instructions Recorded Amoxicillin/Potassium Clav 1 tab PO Q12HR #20 tab 10/16/19 [Augmentin 875-125 Tablet] Ondansetron [Zofran ODT] 4 mg PO Q8HR PRN #15 tab 10/16/19 Allergies Allergy/AdvReac Type Severity Reaction Status Date / Time azathioprine [From Imuran] Allergy Vomiting Verified 10/16/19 23:12 codeine Allergy Nausea Verified 10/16/19 23:12 metronidazole [From Flagyl] Allergy Anaphylaxis Verified 10/16/19 23:12 methotrexate AdvReac Unknown Verified 10/16/19 23:12 Review of Systems ROS Statement: Those systems with pertinent positive or pertinent negative responses have been documented in the HPI. ROS Other: All systems not noted in ROS Statement are negative. Past Medical History Past Medical History: Diabetes Mellitus, GERD/Reflux, Hypertension, Myocardial Infarction ([place]), Respiratory Disorder Additional Past Medical History / Comment(s): Hx. of Curtis's. Chemo for Wegeners, endometriosis, ovarian cysts, STATES SILENT [place] 2015 AND BORDERLINE DM DUE TO CHRONIC PREDNISONE USE. Last Myocardial Infarction Date:: 2015 History of Any Multi-Drug Resistant Organisms: C-DIFF Date of last positivie culture/infection: 2014 MDRO Source:: Stool Past Surgical History: Section Additional Past Surgical History / Comment(s): Right lung resection 2016, L humerus double compound fx repair, colonoscopy, Hemorrhoidectomy. Past Anesthesia/Blood Transfusion Reactions: No Reported Reaction Past Psychological History: No Psychological Hx Reported Smoking Status: Former smoker Past Alcohol Use History: None Reported Past Drug Use History: None Reported - Past Family History Mother Family Medical History: Coronary Artery Disease (CAD) Additional Family Medical History / Comment(s): SIX STENTS Father Family Medical History: Myocardial Infarction ([place]) Additional Family Medical History / Comment(s): Father at age 45 from myocardial infarction. Brother(s) Family Medical History: Hypertension Additional Family Medical History / Comment(s): Patient has 1 brother with hypertension and kidney stones. Sister(s) Family Medical History: No Reported History Additional Family Medical History / Comment(s): Patient has one sister with CHRONIC HYPERCOHDRIA AND GALLSTONES Daughter(s) Family Medical History: No Reported History Additional Family Medical History / Comment(s): Patient has 2 daughters with no major medical problems. General Exam General appearance: alert, in no apparent distress Head exam: Present: atraumatic, normocephalic, normal inspection Eye exam: Present: normal appearance, PERRL, EOMI. Absent: scleral icterus, conjunctival injection, periorbital swelling ENT exam: Present: normal exam, mucous membranes moist Neck exam: Present: normal inspection, full ROM. Absent: tenderness, meningismus, lymphadenopathy Respiratory exam: Present: normal lung sounds bilaterally. Absent: respiratory distress, wheezes, rales, rhonchi, stridor Cardiovascular Exam: Present: regular rate, normal rhythm, normal heart sounds. Absent: systolic murmur, diastolic murmur, rubs, gallop, clicks GI/Abdominal exam: Present: soft, tenderness (Tenderness in the lower abdomen.), normal bowel sounds. Absent: distended, guarding, rebound, rigid Neurological exam: Present: alert Course Vital Signs 10/16/19 20:56 Temperature 99.1 F Pulse Rate 90 Respiratory 16 Rate Blood Pressure 153/81 O2 Sat by Pulse 94 L Oximetry Medical Decision Making - Medical Decision Making Vitals are stable. Patient is afebrile. She does have a white blood cell count of 14. CMP is unremarkable. Urinalysis unremarkable. Patient does have a mild elevation in lipase but no upper abdominal pain. She does have a history of elevated lipase of 900. CT abdomen and pelvis shows focal diverticulitis in the distal sigmoid colon. Patient was started on Augmentin. She will follow up for lipase repeat labs with primary care. She will follow up with GI for diver ticulitis. Discussed. Return parameters. Patient feeling much better after pain medication will be discharged home. - Lab Data Result diagrams: 10/16/19 21:34 10/16/19 21:34 Lab Results 10/16/19 10/16/19 10/16/19 Range/Units 21:34 21:34 21:34 WBC 14.7 H (3.8-10.6) k/uL RBC 4.45 (3.80-5.40) m/uL Hgb 12.8 (11.4-16.0) gm/dL Hct 39.1 (34.0-46.0) % MCV 88.0 (80.0-100.0) fL MCH 28.7 (25.0-35.0) pg MCHC 32.6 (31.0-37.0) g/dL RDW 13.6 (11.5-15.5) % Plt Count 385 (150-450) k/uL Neutrophils % 82 % Lymphocytes % 12 % Monocytes % 4 % Eosinophils % 1 % Basophils % 1 % Neutrophils # 12.0 H (1.3-7.7) k/uL Lymphocytes # 1.7 (1.0-4.8) k/uL Monocytes # 0.6 (0-1.0) k/uL Eosinophils # 0.1 (0-0.7) k/uL Basophils # 0.1 (0-0.2) k/uL Sodium 138 (137-145) mmol/L Potassium 3.4 L (3.5-5.1) mmol/L Chloride 101 (98-107) mmol/L Carbon Dioxide 26 (22-30) mmol/L Anion Gap 11 mmol/L BUN 20 H (7-17) mg/dL Creatinine 0.94 (0.52-1.04) mg/dL Est GFR (CKD-EPI)AfAm 76 (>60 ml/min/1.73 sqM) Est GFR (CKD-EPI)NonAf 66 (>60 ml/min/1.73 sqM) Glucose 132 H (74-99) mg/dL Plasma Lactic Acid Jacobo 1.5 (0.7-2.0) mmol/L Calcium 9.9 (8.4-10.2) mg/dL Total Bilirubin 0.5 (0.2-1.3) mg/dL AST 29 (14-36) U/L ALT 52 H (4-34) U/L Alkaline Phosphatase 69 (38-126) U/L Total Protein 7.2 (6.3-8.2) g/dL Albumin 4.9 (3.5-5.0) g/dL Amylase 88 (30-110) U/L Lipase 1682 H (23-300) U/L Urine Color Urine Appearance (Clear) Urine pH (5.0-8.0) Ur Specific Jupiter (1.001-1.035) Urine Protein (Negative) Urine Glucose (UA) (Negative) Urine Ketones (Negative) Urine Blood (Negative) Urine Nitrite (Negative) Urine Bilirubin (Negative) Urine Urobilinogen (<2.0) mg/dL Ur Leukocyte Esterase (Negative) 10/16/19 Range/Units 22:49 WBC (3.8-10.6) k/uL RBC (3.80-5.40) m/uL Hgb (11.4-16.0) gm/dL Hct (34.0-46.0) % MCV (80.0-100.0) fL MCH (25.0-35.0) pg MCHC (31.0-37.0) g/dL RDW (11.5-15.5) % Plt Count (150-450) k/uL Neutrophils % % Lymphocytes % % Monocytes % % Eosinophils % % Basophils % % Neutrophils # (1.3-7.7) k/uL Lymphocytes # (1.0-4.8) k/uL Monocytes # (0-1.0) k/uL Eosinophils # (0-0.7) k/uL Basophils # (0-0.2) k/uL Sodium (137-145) mmol/L Potassium (3.5-5.1) mmol/L Chloride (98-107) mmol/L Carbon Dioxide (22-30) mmol/L Anion Gap mmol/L BUN (7-17) mg/dL Creatinine (0.52-1.04) mg/dL Est GFR (CKD-EPI)AfAm (>60 ml/min/1.73 sqM) Est GFR (CKD-EPI)NonAf (>60 ml/min/1.73 sqM) Glucose (74-99) mg/dL Plasma Lactic Acid Jacobo (0.7-2.0) mmol/L Calcium (8.4-10.2) mg/dL Total Bilirubin (0.2-1.3) mg/dL AST (14-36) U/L ALT (4-34) U/L Alkaline Phosphatase (38-126) U/L Total Protein (6.3-8.2) g/dL Albumin (3.5-5.0) g/dL Amylase (30-110) U/L Lipase (23-300) U/L Urine Color Colorless Urine Appearance Clear (Clear) Urine pH 5.5 (5.0-8.0) Ur Specific Jupiter 1.023 (1.001-1.035) Urine Protein Negative (Negative) Urine Glucose (UA) Negative (Negative) Urine Ketones Negative (Negative) Urine Blood Negative (Negative) Urine Nitrite Negative (Negative) Urine Bilirubin Negative (Negative) Urine Urobilinogen <2.0 (<2.0) mg/dL Ur Leukocyte Esterase Negative (Negative) Disposition Clinical Impression: Diverticulitis, Elevated lipase Disposition: HOME SELF-CARE Condition: Good Instructions (If sedation given, give patient instructions): Diverticulitis (ED), Diverticulitis Diet (ED) Additional Instructions: Please take antibiotic as directed. Take Tylenol 3 as needed for pain. Do not drive or operate machinery while taking this. Take Zofran as needed for nausea. Follow up with primary care provider to repeat your labs including a lipase. Follow-up with GI about diverticulitis. Return to the emergency room for any worsening symptoms. Prescriptions: Amoxicillin/Potassium Clav [Augmentin 875-125 Tablet] 1 tab PO Q12HR #20 tab Ondansetron [Zofran ODT] 4 mg PO Q8HR PRN #15 tab PRN Reason: Nausea Is patient prescribed a controlled substance at d/c from ED?: No Referrals: Connor Alvarez MD [Primary Care Provider] - 1-2 days Greta James MD [STAFF PHYSICIAN] - 1-2 days Time of Disposition: 23:43
[2019-10-16 21:45] LABS: Basophils # (A) 0.1 k/uL (0-0.2); Basophils % (A) 1 %; Eosinophils # (A) 0.1 k/uL (0-0.7); Eosinophils % (A) 1 %; HCT 39.1 % (34.0-46.0); HGB 12.8 gm/dL (11.4-16.0); Lymphocytes # (A) 1.7 k/uL (1.0-4.8); Lymphocytes % (A) 12 %; MCH 28.7 pg (25.0-35.0); MCHC 32.6 g/dL (31.0-37.0); Mean Platelet Volume 6.7; Monocytes # (A) 0.6 k/uL (0-1.0); Monocytes % (A) 4 %; Neutrophils % (A) 82 %; Platelet Count 385 k/uL (150-450); RBC 4.45 m/uL (3.80-5.40); RDW 13.6 % (11.5-15.5); WBC 14.7 k/uL (3.8-10.6)
[2019-10-16 21:54] LABS: Albumin 4.9 g/dL (3.5-5.0); Calcium 9.9 mg/dL (8.4-10.2); Potassium 3.4 mmol/L (3.5-5.1); Total Bilirubin 0.5 mg/dL (0.2-1.3); Total Protein 7.2 g/dL (6.3-8.2)
--- NOTE | 2019-10-16 22:43 | CT ---
EXAMINATION TYPE: CT abdomen pelvis w con DATE OF EXAM: 10/16/2019 COMPARISON: 02/03/2019 HISTORY: Lower abdominal pain. CT DLP: 1220.4 mGycm Automated exposure control for dose reduction was used. CONTRAST: Performed with IV Contrast, patient injected with 100ml mL of Isovue 300. Images were obtained from the diaphragm to the floor the pelvis with IV contrast. FINDINGS: There is minimal subsegmental atelectasis at the right lung base. There is no pleural effusion. There is no pericardial effusion. Heart size is normal. There is some fatty infiltration of the liver. The bile ducts are not dilated. Gallbladder appears no rmal. Stomach appears normal. There is no evidence of pancreatic mass. Spleen appears normal. There is no adrenal mass. There are multiple bilateral renal calculi that measure up to 5 mm. Total n umber of calculi is at least 15. The ureters are not dilated. There is no hydronephrosis. The bladder distends smoothly. Uterus is anteverted. There is no free fluid in the pelvis. There is no sign of a pelvic mass. The appendix is posterior and medial and appears normal. Kidneys show satisfactory cont rast opacification. The delayed images show normal renal excretion. There is wall thickening of the distal sigmoid colon with multiple small diverticula. There is some f at stranding also. Segment that is involved measures 6 cm in length. There is no free air. There is no ascites. There is no sign of bowel obstruction. There is no dilated bowel. The lumbar vertebra have fairly normal alignment. There is mild vacuum disc at L4-5. There is no comp ression fracture. The bony pelvis appears intact. IMPRESSION: Sigmoid diverticula with focal diverticulitis in the distal sigmoid colon that is a change compared t o old exam. Normal appendix. Numerous nonobstructing bilateral renal calculi.
[2019-10-16] MEDS ORDERED: HYDROmorphone 1 MG/ML 1 ML SYRINGE IVP STA (22:50)
[2019-10-16 23:08] LABS: Appearance,Urine Clear (Clear); Bilirubin,Urine Negative (Negative); Blood,Urine Negative (Negative); Color,Urine Colorless; Glucose,Urine (UA) Negative (Negative); Ketones,Urine Negative (Negative); Leukocyte Esterase,Urine Negative (Negative); Nitrite,Urine Negative (Negative); PH, Urine 5.5 (5.0-8.0); Protein,Urine Negative (Negative); Specific Gravity,Urine 1.023 (1.001-1.035); Urobilinogen,Urine <2.0 mg/dL (<2.0)
[2019-10-16] MEDS: ACET/COD 300 MG/30 MG STARTER PACK 6 TAB BTL PO STA (23:56)
[2019-10-17] MEDS ORDERED: AMOXIC-POT CLAV 875MG STARTER PACK 2 TAB BTL PO STA (00:08)
[2019-10-17] MEDS ORDERED: HYDROmorphone 1 MG/ML 1 ML SYRINGE IM STA (00:28)
[2019-10-17] MEDS ORDERED: HYDROmorphone 1 MG/ML 1 ML SYRINGE IVP PRN (01:36)
[2019-10-17] MEDS ORDERED: ACETAMINOPHEN TAB 325 MG TAB PO PRN (01:36)
[2019-10-17] MEDS ORDERED: NALOXONE 0.4 MG/ML 1 ML VIAL IV PRN (01:36)
[2019-10-17] MEDS ORDERED: ALBUTEROL NEBULIZED 2.5 MG/3 ML INHALATION PRN (01:38)
[2019-10-17] MEDS: MORPHINE SULFATE 4 MG/ML SYRINGE IV PRN ×5 (02:12→21:09)
[2019-10-17] MEDS: ACET/COD 300 MG/30 MG STARTER PACK 6 TAB BTL PO STA (02:25)
[2019-10-17] MEDS: SODIUM CHLORIDE 0.9% 1,000 ML IV SCH ×3 (05:49→21:12)
[2019-10-17] MEDS: ONDANSETRON 4 MG/2 ML VIAL IVP PRN ×2 (05:50→21:20)
[2019-10-17] MEDS: AMPICILLIN-SULBACTAM 3 GM in SODIUM CHLORIDE 0.9% 100 ML IVPB SCH ×4 (05:55→23:48)
[2019-10-17] MEDS: NON FORMULARY DRUG (Mirabegron [Myrbetriq] 50 MG) PO SCH (07:42)
[2019-10-17] MEDS: SYMBICORT 160-4.5 MCG INHALER INHALATION SCH ×2 (07:58→20:52)
[2019-10-17] MEDS: FAMOTIDINE 20 MG TAB PO SCH ×2 (08:09→08:18)
[2019-10-17] MEDS: HYDROCORTISONE SUCCINATE 100 MG/2 ML VIAL IV SCH ×3 (08:09→23:48)
[2019-10-17] MEDS: PANTOPRAZOLE 40 MG TABLET PO SCH ×2 (08:10→08:19)
[2019-10-17] MEDS: lisinopriL 20 MG TAB PO SCH ×2 (08:10→08:19)
[2019-10-17] MEDS: hydroCHLOROthiazide 12.5 MG CAP PO SCH ×2 (08:10→08:18)
[2019-10-17] MEDS: HEPARIN SODIUM,PORCINE 5,000 UNIT/ML 1 ML VIAL SQ SCH ×3 (08:18→23:48)
[2019-10-17] MEDS: CALCIUM CARB-VIT D 500MG-200UN 1 EACH TAB PO SCH ×3 (08:18→21:11)
[2019-10-17] MEDS: IBUPROFEN 600 MG TAB PO SCH ×3 (08:18→21:11)
[2019-10-17] MEDS: CHOLECALCIFEROL 1,000 UNIT TAB PO SCH (08:18)
[2019-10-17] MEDS: DULoxetine HCL 20 MG CAPSULE.DR PO SCH (08:18)
[2019-10-17] MEDS: hydrALAZINE HCL 20 MG/ML 1 ML VIAL IVP PRN (08:49)
[2019-10-17] MEDS ORDERED: HYDROCORTISONE 10 MG TAB PO SCH ×2 (09:00→15:00)
--- NOTE | 2019-10-17 11:00 | P.HPIM ---
History of Present Illness H&P Date: 10/17/19 Chief Complaint: Abdominal pain This is a 59-year-old female patient of Dr. Alvarez and Dr. Damico. with past medical history of diabetes mellitus type 2, Curtis granulomatosis, gastroesophageal reflux disease, hypertension. Patient presented to [facility] due to abdominal pain as well as diarrhea that it going on for 3 weeks. She has at least 1 loose stool daily. Yesterday she developed nausea and vomiting as well as lower abdominal pain. No fever or chills. No shortness of breath, chest pain, headache. Patient came into [facility] emergency center for evaluation and found to be afebrile, heart rate 90, blood pressure 153/81, pulse ox 94% on room air. WBC 14.7, hemoglobin 12.8, platelet count 385. Sodium 138, potassium 3.4, chloride 101, CO2 26, BUN 20 creatinine 0.94. Blood sugar 132. Lactic acid 1.5. Total bilirubin 0.5, AST 29, ALT 52, alkaline phosphatase 69. Lipase 1682. Urinalysis clear with nitra te and leukoesterase negative. CAT scan of the abdomen and pelvis with contrast revealed sigmoid diverticula with focal diverticulitis in the distal sigmoid colon. Normal appendix. Numerous nonobstructed bilateral renal calculi. Patient was given 1 L of IV fluids, Zofran, morphine with improvement of her pain [facility] Consult with general surgery regarding diverticulitis. Patient is currently on clear liquid diet. COVID-19 testing in process. Review of Systems Constitutional: Reports fatigue, Reports weakness, Denies chills, Denies fever Eyes: denies blurred vision, denies pain Ears, nose, mouth and throat: Denies headache, Denies nasal congestion, Denies nasal discharge, Denies sore throat, Denies vertigo Cardiovascular: Denies chest pain, Denies dyspnea on exertion, Denies leg edema, Denies shortness of breath, Denies syncope Respiratory: Denies cough, Denies cough with sputum, Denies dyspnea, Denies excessive sputum, Denies hemoptysis, Denies respiratory infections Gastrointestinal: Reports abdominal pain, Reports change in bowel habits, Reports diarrhea, Reports loss of appetite, Reports nausea, Reports vomiting, Denies BRBPR, Denies hematemesis, Denies hematochezia, Denies melena Genitourinary: Denies dysuria, Denies hematuria, Denies urgency, Denies urinary frequency Menstruation: Reports postmenopausal Musculoskeletal: Denies frequent falls, Denies gait dysfunction, Denies myalgias Integumentary: Denies pruritus, Denies rash, Denies wounds Neurological: Denies change in mentation, Denies change in speech, Denies gait dysfunction, Denies numbness, Denies seizures, Denies weakness Psychiatric: Denies anxiety, Denies depression Endocrine: Denies fatigue, Denies weight change Past Medical History Past Medical History: Diabetes Mellitus, GERD/Reflux, Hypertension, Myocardial Infarction ([place]), Respiratory Disorder Additional Past Medical History / Comment(s): Hx. of Curtis's. Chemo for Wegeners, endometriosis, ovarian cysts, STATES SILENT [place] 2015 AND BORDERLINE DM DUE TO CHRONIC PREDNISONE USE. Last Myocardial Infarction Date:: 2015 History of Any Multi-Drug Resistant Organisms: C-DIFF Date of last positivie culture/infection: 2014 MDRO Source:: Stool Past Surgical History: Section Additional Past Surgical History / Comment(s): Right lung resection 2016, Nigel lockwood double compound fx repair, colonoscopy, Hemorrhoidectomy. Past Anesthesia/Blood Transfusion Reactions: No Reported Reaction Past Psychological History: No Psychological Hx Reported Smoking Status: Former smoker Past Alcohol Use History: None Reported Additional Past Alcohol Use History / Comment(s): Patient was a smoker one pack per day for 30 years and quit in July 2018. No alcohol use, no marijuana or street drug use. Past Drug Use History: None Reported - Past Family History Mother Family Medical History: Coronary Artery Disease (CAD) Additional Family Medical History / Comment(s): Mother at age 78 with history of coronary artery disease status post multiple stents. Father Family Medical History: Myocardial Infarction ([place]) Additional Family Medical History / Comment(s): Father at age 45 from myocardial infarction. Brother(s) Family Medical History: Hypertension Additional Family Medical History / Comment(s): Patient has 1 brother with hypertension and kidney stones. Sister(s) Family Medical History: No Reported History Additional Family Medical History / Comment(s): Patient has one sister with CHRONIC HYPERCOHDRIA AND GALLSTONES Daughter(s) Family Medical History: No Reported History Additional Family Medical History / Comment(s): Patient has 2 daughters with no major medical problems. Medications and Allergies Home Medications Medication Instructions Recorded Confirmed Type Pantoprazole Sodium [Protonix] 40 mg PO DAILY 08/22/18 10/16/19 History Calcium Carbonate/Vitamin D3 1 tab PO BID 01/05/19 10/16/19 History [Calcium 600-Vit D3 200 Tablet] Hydrocortisone 25 mg PO DAILY 06/06/19 10/16/19 History Hydrocortisone [Cortef] 15 mg PO DAILY@1500 06/06/19 10/16/19 History Budesonide-Formot 160-4.5 Mcg 2 puff INHALATION RT-BID 06/09/19 10/16/19 History [Symbicort 160-4.5 Mcg Inhaler] Albuterol Sulfate [Ventolin HFA] 2 puff INHALATION RT-Q4H PRN 10/16/19 10/16/19 History Amoxicillin/Potassium Clav 1 tab PO Q12HR #20 tab 10/16/19 Rx [Augmentin 875-125 Tablet] Cholecalciferol [Vitamin D3 (25 5,000 unit PO DAILY 10/16/19 10/16/19 History Mcg = 1000 Iu)] DULoxetine HCL [Cymbalta] 20 mg PO DAILY 10/16/19 10/16/19 History Hydrochlorothiazide 12.5 mg PO DAILY 10/16/19 10/16/19 History [hydroCHLOROthiazide] Ibuprofen 600 mg PO TID 10/16/19 10/16/19 History Ipratropium-Albuterol Nebulize 3 ml INHALATION RT-HS 10/16/19 10/16/19 History [Duoneb 0.5 mg-3 mg/3 ml Soln] Mirabegron [Myrbetriq] 50 mg PO DAILY 10/16/19 10/16/19 History Nature's Plus Ultra Juice Greens 1 tab PO BID 10/16/19 10/16/19 History Ondansetron HCl [Zofran] 4 mg PO BID PRN 10/16/19 10/16/19 History Ondansetron [Zofran ODT] 4 mg PO Q8HR PRN #15 tab 10/16/19 Rx lisinopriL 20 mg PO DAILY 10/16/19 10/16/19 History Allergies Allergy/AdvReac Type Severity Reaction Status Date / Time azathioprine [From Imuran] Allergy Vomiting Verified 10/16/19 23:12 codeine Allergy Nausea Verified 10/16/19 23:12 metronidazole [From Flagyl] Allergy Anaphylaxis Verified 10/16/19 23:12 methotrexate AdvReac Unknown Verified 10/16/19 23:12 Physical Exam Vitals: Vital Signs Temp Pulse Resp BP Pulse Ox 10/17/19 05:56 90 17 190/90 98 10/17/19 02:09 93 18 182/89 94 L 10/16/19 23:55 98.1 F 93 16 168/77 100 10/16/19 20:56 99.1 F 90 16 153/81 94 L Intake and Output 10/16/19 10/17/19 10/17/19 22:59 06:59 14:59 Other: Weight 79.832 kg - Constitutional General appearance: mild distress, obese - EENT Eyes: anicteric sclerae, EOMI, PERRLA, no ptosis, no scleral icterus, normal appearance ENT: hearing grossly normal, NA/AT, normal oropharynx, no thrush Ears: bilateral: normal - Neck Neck: no lymphadenopathy, normal ROM, no rigidity, no stridor, no thyromegaly Carotids: bilateral: upstroke normal Thyroid: bilateral: normal size - Respiratory Respiratory: bilateral: diminished, wheezing, prolonged expiration, negative: dullness, rales, rhonchi Frequent moist cough - Cardiovascular Rhythm: regular Heart sounds: normal: S1, S2 Abnormal Heart Sounds: no systolic murmur, no rub, no S3 Gallop, no S4 Gallop, no click - Gastrointestinal General gastrointestinal: normal bowel sounds, soft, lower abdominal tenderness, no umbilical hernia, no ventral hernia - Integumentary Integumentary: normal, normal turgor - Neurologic Neurologic: CNII-XII intact - Musculoskeletal Musculoskeletal: generalized weakness - Psychiatric Psychiatric: A&O x's 3, appropriate affect, intact judgment & insight Results CBC & Chem 7: 10/16/19 21:34 10/16/19 21:34 Labs: Abnormal Lab Results - Last 24 Hours (Table) 10/16/19 10/16/19 Range/Units 21:34 21:34 WBC 14.7 H (3.8-10.6) k/uL Neutrophils # 12.0 H (1.3-7.7) k/uL Potassium 3.4 L (3.5-5.1) mmol/L BUN 20 H (7-17) mg/dL Glucose 132 H (74-99) mg/dL ALT 52 H (4-34) U/L Lipase 1682 H (23-300) U/L Thrombosis Risk Factor Assmnt - DVT/VTE Prophylaxis DVT/VTE Prophylaxis: Pharmacologic Prophylaxis ordered Assessment and Plan Plan: 1. Acute vomiting and diarrhea with dehydration secondary to acute diverticulitis. Continue IV fluids 0.9 normal saline at 100 mL per hour, Zofran as needed for nausea, morphine as needed for pain, IV antibiotics, surgery consu lt with Dr. Ontiveros. 2. Possible acute pancreatitis. Recheck lipase in the morning. 3. COPD without exacerbation. Continue albuterol nebulizer treatment as needed, DuoNeb treatment at bedtime, Symbicort 2 puffs twice daily. 4. Possible adrenal insufficiency disorder. Oral Cortef discontinued and patient placed on Solu-Cortef IV 50 mg every 8 hours. 5. History of Curtis granulomatosis. Continue steroids as above. 6. GERD. Continue Protonix 40 mg every day. 4. Hyperglycemia. CBG before meals and at bedtime, NovoLog scale. 5. Chronic tobacco use and dependence--patient quit July 2018. 6. Hypertension. Continue lisinopril 20 mg daily, hydrochlorothiazide 12.5 mg daily, IV hydralazine as needed. 7. Recurrent depression. Continue Cymbalta 20 mg daily DVT prophylaxis. H eparin subcu 3 times daily. 8. COVID-19 testing. 9. GI prophylaxis. Continue patient on Protonix 40 mg orally once every day. 10. Admit to inpatient. Estimated length of stay 2 midnights. 11. Patient's full code. Discharge Plan: Return home Impression and plan of care have been directed as dictated by the signing physician. Lanette Mccarthy nurse practitioner acting as scribe for signing physician.
[2019-10-17 13:33] LABS: Glucose,Whole Blood 149 mg/dL (75-99)
--- NOTE | 2019-10-17 13:36 | P.GSCN ---
History of Present Illness Consult date: 10/17/19 History of present illness: 59-year-old female presented to the emergency department via EMS secondary to significant lower abdominal pain. She states that the pain began yesterday at 3 PM and progressively worsened. She states that over the past month she has been having diarrhea episodes. She denies blood in her stool. She states that she also has nausea and vomiting episodes. Currently, she is complaining of significant left lower quadrant pain. She denies having pain like this previously. Workup in the emergency department revealed a mild leukocytosis of 14,[address] abdomen and pelvis finding of colitis, likely diverticulitis. She is noted to have past medical history of diabetes mellitus type 2, Curtis granulomatosis, gastroesophageal reflux disease, hypertension. She states she is on chronic steroids secondary to Curtis's disease. She states her last colonoscopy was within the last 3 years but does not recall the results. Review of Systems All systems: negative Past Medical History Past Medical History: Diabetes Mellitus, GERD/Reflux, Hypertension, Myocardial Infarction ([place]), Respiratory Disorder Additional Past Medical History / Comment(s): Hx. of Curtsi's. Chemo for Wegeners, endometriosis, ovarian cysts, STATES SILENT [place] 2015 AND BORDERLINE DM DUE TO CHRONIC PREDNISONE USE. Last Myocardial Infarction Date:: 2015 History of Any Multi-Drug Resistant Organisms: C-DIFF Year Discovered:: 2014 MDRO Source:: Stool Past Surgical History: Section Additional Past Surgical History / Comment(s): Right lung resection 2016, L humerus double compound fx repair, colonoscopy, Hemorrhoidectomy. Past Anesthesia/Blood Transfusion Reactions: No Reported Reaction Past Psychological History: No Psychological Hx Reported Smoking Status: Former smoker Past Alcohol Use History: None Reported Additional Past Alcohol Use History / Comment(s): Patient was a smoker one pack per day for 30 years and quit in July 2018. No alcohol use, no marijuana or street drug use. Past Drug Use History: None Reported - Past Family History Mother Family Medical History: Coronary Artery Disease (CAD) Additional Family Medical History / Comment(s): Mother at age 78 with history of coronary artery disease status post multiple stents. Father Family Medical History: Myocardial Infarction ([place]) Additional Family Medical History / Comment(s): Father at age 45 from myocardial infarction. Brother(s) Family Medical History: Hypertension Additional Family Medical History / Comment(s): Patient has 1 brother with hypertension and kidney stones. Sister(s) Family Medical History: No Reported History Additional Family Medical History / Comment(s): Patient has one sister with CHRONIC HYPERCOHDRIA AND GALLSTONES Daughter(s) Family Medical History: No Reported History Additional Family Medical History / Comment(s): Patient has 2 daughters with no major medical problems. Medications and Allergies Home Medications Medication Instructions Recorded Confirmed Type Pantoprazole Sodium [Protonix] 40 mg PO DAILY 08/22/18 10/16/19 History Calcium Carbonate/Vitamin D3 1 tab PO BID 01/05/19 10/16/19 History [Calcium 600-Vit D3 200 Tablet] Hydrocortisone 25 mg PO DAILY 06/06/19 10/16/19 History Hydrocortisone [Cortef] 15 mg PO DAILY@1500 06/06/19 10/16/19 History Budesonide-Formot 160-4.5 Mcg 2 puff INHALATION RT-BID 06/09/19 10/16/19 History [Symbicort 160-4.5 Mcg Inhaler] Albuterol Sulfate [Ventolin HFA] 2 puff INHALATION RT-Q4H PRN 10/16/19 10/16/19 History Amoxicillin/Potassium Clav 1 tab PO Q12HR #20 tab 10/16/19 Rx [Augmentin 875-125 Tablet] Cholecalciferol [Vitamin D3 (25 5,000 unit PO DAILY 10/16/19 10/16/19 History Mcg = 1000 Iu)] DULoxetine HCL [Cymbalta] 20 mg PO DAILY 10/16/19 10/16/19 History Hydrochlorothiazide 12.5 mg PO DAILY 10/16/19 10/16/19 History [hydroCHLOROthiazide] Ibuprofen 600 mg PO TID 10/16/19 10/16/19 History Ipratropium-Albuterol Nebulize 3 ml INHALATION RT-HS 10/16/19 10/16/19 History [Duoneb 0.5 mg-3 mg/3 ml Soln] Mirabegron [Myrbetriq] 50 mg PO DAILY 10/16/19 10/16/19 History Nature's Plus Ultra Juice Greens 1 tab PO BID 10/16/19 10/16/19 History Ondansetron HCl [Zofran] 4 mg PO BID PRN 10/16/19 10/16/19 History Ondansetron [Zofran ODT] 4 mg PO Q8HR PRN #15 tab 10/16/19 Rx lisinopriL 20 mg PO DAILY 10/16/19 10/16/19 History Allergies Allergy/AdvReac Type Severity Reaction Status Date / Time azathioprine [From Imuran] Allergy Vomiting Verified 10/16/19 23:12 codeine Allergy Nausea Verified 10/16/19 23:12 metronidazole [From Flagyl] Allergy Anaphylaxis Verified 10/16/19 23:12 methotrexate AdvReac Unknown Verified 10/16/19 23:12 Surgical - Exam Osteopathic Statement: *. No significant issues noted on an osteopathic structural exam other than those noted in the History and Physical/Consult. Vital Signs Temp Pulse Resp BP Pulse Ox 99.1 F 90 16 153/81 94 L 10/16/19 20:56 10/16/19 20:56 10/16/19 20:56 10/16/19 20:56 10/16/19 20:56 - General well developed, well nourished, no distress - Eyes PERRL - ENT normal mucosa, no hearing loss - Neck trachea midline - Respiratory normal respiratory effort - Abdomen Soft, tender to palpation in left lower quadrant, nondistended, no rebound, no guarding - Neurologic normal coordination, normal sensation - Psychiatric oriented to time, oriented to person, oriented to place Results - Labs 10/16/19 21:34 10/16/19 21:34 Abnormal Lab Results - Last 24 Hours (Table) 10/16/19 10/16/19 Range/Units 21:34 21:34 WBC 14.7 H (3.8-10.6) k/uL Neutrophils # 12.0 H (1.3-7.7) k/uL Potassium 3.4 L (3.5-5.1) mmol/L BUN 20 H (7-17) mg/dL Glucose 132 H (74-99) mg/dL ALT 52 H (4-34) U/L Lipase 1682 H (23-300) U/L Diabetes panel 10/16/19 Range/Units 21:34 Sodium 138 (137-145) mmol/L Potassium 3.4 L (3.5-5.1) mmol/L Chloride 101 (98-107) mmol/L Carbon Dioxide 26 (22-30) mmol/L BUN 20 H (7-17) mg/dL Creatinine 0.94 (0.52-1.04) mg/dL Glucose 132 H (74-99) mg/dL Calcium 9.9 (8.4-10.2) mg/dL AST 29 (14-36) U/L ALT 52 H (4-34) U/L Alkaline Phosphatase 69 (38-126) U/L Total Protein 7.2 (6.3-8.2) g/dL Albumin 4.9 (3.5-5.0) g/dL Calcium panel 10/16/19 Range/Units 21:34 Calcium 9.9 (8.4-10.2) mg/dL Albumin 4.9 (3.5-5.0) g/dL Pituitary panel 10/16/19 Range/Units 21:34 Sodium 138 (137-145) mmol/L Potassium 3.4 L (3.5-5.1) mmol/L Chloride 101 (98-107) mmol/L Carbon Dioxide 26 (22-30) mmol/L BUN 20 H (7-17) mg/dL Creatinine 0.94 (0.52-1.04) mg/dL Glucose 132 H (74-99) mg/dL Calcium 9.9 (8.4-10.2) mg/dL Adrenal panel 10/16/19 Range/Units 21:34 Sodium 138 (137-145) mmol/L Potassium 3.4 L (3.5-5.1) mmol/L Chloride 101 (98-107) mmol/L Carbon Dioxide 26 (22-30) mmol/L BUN 20 H (7-17) mg/dL Creatinine 0.94 (0.52-1.04) mg/dL Glucose 132 H (74-99) mg/dL Calcium 9.9 (8.4-10.2) mg/dL Total Bilirubin 0.5 (0.2-1.3) mg/dL AST 29 (14-36) U/L ALT 52 H (4-34) U/L Alkaline Phosphatase 69 (38-126) U/L Total Protein 7.2 (6.3-8.2) g/dL Albumin 4.9 (3.5-5.0) g/dL - Imaging CT scan - abdomen: report reviewed CT scan - pelvis: report reviewed (Inflammatory changes noted in the sigmoid colon) Assessment and Plan (1) Diverticulitis Narrative/Plan: 59-year-old female with acute diverticulitis - Keep the patient nothing by mouth, ice chips and meds are okay - IV antibiotics - Bowel rest - Continue medical care for medical comorbidities - Will continue to follow and make recommendations based on the patient's clinical progress. Current Visit: Yes Status: Acute Code(s): K57.92 - DVTRCLI OF INTEST, PART UNSP, W/O PERF OR ABSCESS W/O BLEED SNOMED Code(s): 419523976
[2019-10-17] MEDS: INSULIN ASPART (NovoLOG) 100 UNIT/ML VIAL SQ SCH ×3 (13:38→21:11)
[2019-10-17 17:26] LABS: Glucose,Whole Blood 139 mg/dL (75-99)
[2019-10-17] MEDS: IPRATROPIUM-ALBUTEROL 3 ML NEB INHALATION SCH (20:53)
[2019-10-17 20:59] LABS: Glucose,Whole Blood 150 mg/dL (75-99)
[2019-10-18] MEDS: MORPHINE SULFATE 4 MG/ML SYRINGE IV PRN ×6 (01:20→23:10)
[2019-10-18] MEDS: ONDANSETRON 4 MG/2 ML VIAL IVP PRN (05:58)
[2019-10-18 06:45] LABS: Glucose,Whole Blood 147 mg/dL (75-99)
[2019-10-18] MEDS: CHOLECALCIFEROL 1,000 UNIT TAB PO SCH (07:35)
[2019-10-18] MEDS: IBUPROFEN 600 MG TAB PO SCH ×3 (07:35→22:20)
[2019-10-18] MEDS: lisinopriL 20 MG TAB PO SCH (07:36)
[2019-10-18] MEDS: hydroCHLOROthiazide 12.5 MG CAP PO SCH (07:36)
[2019-10-18] MEDS: AMPICILLIN-SULBACTAM 3 GM in SODIUM CHLORIDE 0.9% 100 ML IVPB SCH ×4 (07:36→23:11)
[2019-10-18] MEDS: HYDROCORTISONE SUCCINATE 100 MG/2 ML VIAL IV SCH ×2 (07:36→21:07)
[2019-10-18] MEDS: PANTOPRAZOLE 40 MG TABLET PO SCH (07:36)
[2019-10-18] MEDS: HEPARIN SODIUM,PORCINE 5,000 UNIT/ML 1 ML VIAL SQ SCH ×3 (07:36→23:11)
[2019-10-18] MEDS: CALCIUM CARB-VIT D 500MG-200UN 1 EACH TAB PO SCH (07:36)
[2019-10-18] MEDS: INSULIN ASPART (NovoLOG) 100 UNIT/ML VIAL SQ SCH ×4 (07:37→21:02)
--- NOTE | 2019-10-18 08:42 | P.PN ---
Subjective Progress Note Date: 10/18/19 Patient seen and examined at bedside. States that she did begin feeling better yesterday evening, however had a vomiting episode and now is having pain again. She denies any febrile episodes. Objective - Vital Signs Vital signs: Vital Signs Temp 97.7 F 10/18/19 01:38 Pulse 94 10/18/19 01:38 Resp 18 10/18/19 04:05 BP 147/84 10/18/19 01:38 Pulse Ox 93 L 10/18/19 01:38 Intake & Output 10/17/19 10/18/19 10/18/19 18:59 06:59 18:59 Intake Total 100 Balance 100 Weight 79.832 kg Intake: Intake, IV Titration 100 Amount Ampicillin-Sulbactam 3 gm 100 In Sodium Chloride 0.9% 100 ml @ 200 mls/hr IVPB Q6H [facility] Rx#:[id number] Other: Voiding Method Toilet - Constitutional General appearance: Present: cooperative, no acute distress - Respiratory Details: No difficulty with respiration - Gastrointestinal Gastrointestinal Comment(s): Soft, tender to palpation in the left lower quadrant, tender to percussion in the left lower quadrant, nondistended, no rebound, no guarding - Musculoskeletal Musculoskeletal: Present: generalized weakness - Psychiatric Psychiatric: Present: A&O x's 3 - Labs CBC & Chem 7: 10/16/19 21:34 10/16/19 21:34 Labs: Abnormal Lab Results - Last 24 Hours (Table) 10/17/19 10/17/19 10/17/19 Range/Units 13:31 17:24 20:58 POC Glucose (mg/dL) 149 H 139 H 150 H (75-99) mg/dL 10/18/19 Range/Units 06:43 POC Glucose (mg/dL) 147 H (75-99) mg/dL Assessment and Plan (1) Diverticulitis Narrative/Plan: 59-year-old female with acute diverticulitis - Patient continues to have left lower quadrant tenderness, we'll keep the patient nothing by mouth with ice chips for now - Continue IV antibiotics - Bowel rest - Continue medical care for medical comorbidities - Will continue to follow and make recommendations based on the patient's clinical progress. Current Visit: Yes Status: Acute Code(s): K57.92 - DVTRCLI OF INTEST, PART UNSP, W/O PERF OR ABSCESS W/O BLEED SNOMED Code(s): 131289427
[2019-10-18] MEDS: SYMBICORT 160-4.5 MCG INHALER INHALATION SCH ×2 (09:20→20:14)
[2019-10-18] MEDS: DULoxetine HCL 20 MG CAPSULE.DR PO SCH (09:48)
[2019-10-18 09:53] LABS: HCT 33.1 % (34.0-46.0); HGB 10.7 gm/dL (11.4-16.0); MCH 28.8 pg (25.0-35.0); MCHC 32.3 g/dL (31.0-37.0); MCV 89.3 fL (80.0-100.0); Mean Platelet Volume 6.7; Platelet Count 288 k/uL (150-450); RBC 3.71 m/uL (3.80-5.40); RDW 13.6 % (11.5-15.5); WBC 11.6 k/uL (3.8-10.6)
[2019-10-18 10:05] LABS: ALT 30 U/L (4-34); AST 21 U/L (14-36); African American GFR (CKD) >90 (>60 ml/min/1.73 sqM); Albumin 3.2 g/dL (3.5-5.0); Alkaline Phosphatase 61 U/L (38-126); Anion Gap 6 mmol/L; Blood Urea Nitrogen 16 mg/dL (7-17); Calcium 7.5 mg/dL (8.4-10.2); Carbon Dioxide 29 mmol/L (22-30); Chloride 101 mmol/L (98-107); Glucose 133 mg/dL (74-99); Non-African American GFR(CKD) >90 (>60 ml/min/1.73 sqM); Potassium 2.9 mmol/L (3.5-5.1); Sodium 136 mmol/L (137-145); Total Bilirubin 0.6 mg/dL (0.2-1.3); Total Protein 5.2 g/dL (6.3-8.2)
[2019-10-18] MEDS ORDERED: POTASSIUM CHLORIDE ER 20 MEQ TAB.ER PO STA (10:32)
[2019-10-18] MEDS: NON FORMULARY DRUG (Mirabegron [Myrbetriq] 50 MG) PO SCH (10:38)
--- NOTE | 2019-10-18 11:29 | P.PN ---
Subjective Progress Note Date: 10/18/19 This is a 59-year-old female patient of Dr. Alvarez and Dr. Damico. with past medical history of diabetes mellitus type 2, Curtis granulomatosis, gastroesophageal reflux disease, hypertension. Patient presented to [facility] due to abdominal pain as well as diarrhea that it going on for 3 weeks. She has at least 1 loose stool daily. Yesterday she developed nausea and vomiting as well as lower abdominal pain. No fever or chills. No shortness of breath, chest pain, headache. Patient came into [facility] emergency center for evaluation and found to be afebrile, heart rate 90, blood pressure 153/81, pulse ox 94% on room air. WBC 14.7, hemoglobin 12.8, platelet count 385. Sodium 138, potassium 3.4, chloride 101, CO2 26, BUN 20 creatinine 0.94. Blood sugar 132. Lactic acid 1.5. Total bilirubin 0.5, AST 29, ALT 52, alkaline phosphatase 69. Lipase 1682. Urinalysis clear with nitrate and leukoesterase negative. CAT scan of the abdomen and pelvis with contrast revealed sigmoid diverticula with focal diverticulitis in the distal sigmoid colon. Normal appendix. Numerous nonobstructed bilateral renal calculi. Patient was given 1 L of IV fluids, Zofran, morphine with improvement of her pain and admitted to the [facility] floor. Consult with general surgery regarding diverticulitis. Patient is currently on clear liquid diet. COVID-19 testing in process. 10/17: Still complaining of increase pain in the abdomen today, there is no nausea or vomiting we will continue with IVF and we will change to add KCL , we will keep NPO , reevaluate in 24 hours, surgery consult appreciated, there is no chest pain or shortness of breath, no coughing, she has not had any bowel movements , she is passing gas. Objective - Vital Signs Vital signs: Vital Signs Temp 99.7 F H 10/18/19 07:00 Pulse 98 10/18/19 07:43 Resp 16 10/18/19 07:43 BP 124/73 10/18/19 07:00 Pulse Ox 91 L 10/18/19 07:00 Intake & Output 10/17/19 10/18/19 10/18/19 18:59 06:59 18:59 Intake Total 100 Balance 100 Weight 79.832 kg Intake: Intake, IV Titration 100 Amount Ampicillin-Sulbactam 3 gm 100 In Sodium Chloride 0.9% 100 ml @ 200 mls/hr IVPB Q6H [facility] Rx#:[id number] Other: Voiding Method Toilet Toilet - Exam Review of Systems Constitutional: Reports fatigue, Reports weakness, Denies chills, Denies fever Eyes: denies blurred vision, denies pain Ears, nose, mouth and throat: Denies headache, Denies nasal congestion, Denies nasal discharge, Denies sore throat, Denies vertigo Cardiovascular: Denies chest pain, Denies dyspnea on exertion, Denies leg edema, Denies shortness of breath, Denies syncope Respiratory: Denies cough, Denies cough with sputum, Denies dyspnea, Denies excessive sputum, Denies hemoptysis, Denies respiratory infections Gastrointestinal: Reports abdominal pain, Reports change in bowel habits, Reports diarrhea, Reports loss of appetite, Reports nausea, Reports vomiting, Denies BRBPR, Denies hematemesis, Denies hematochezia, Denies melena Genitourinary: Denies dysuria, Denies hematuria, Denies urgency, Denies urinary frequency Menstruation: Reports postmenopausal Musculoskeletal: Denies frequent falls, Denies gait dysfunction, Denies myalgias Integumentary: Denies pruritus, Denies rash, Denies wounds Neurological: Denies change in mentation, Denies change in speech, Denies gait dysfunction, Denies numbness, Denies seizures, Denies weakness Psychiatric: Denies anxiety, Denies depression Endocrine: Denies fatigue, Denies weight change - Constitutional General appearance: mild distress, obese - EENT Eyes: anicteric sclerae, EOMI, PERRLA, no ptosis, no scleral icterus, normal appearance ENT: hearing grossly normal, NA/AT, normal oropharynx, no thrush Ears: bilateral: normal - Neck Neck: no lymphadenopathy, normal ROM, no rigidity, no stridor, no thyromegaly Carotids: bilateral: upstroke normal Thyroid: bilateral: normal size - Respiratory Respiratory: bilateral: diminished, wheezing, prolonged expiration, negative: dullness, rales, rhonchi Frequent moist cough - Cardiovascular Rhythm: regular Heart sounds: normal: S1, S2 Abnormal Heart Sounds: no systolic murmur, no rub, no S3 Gallop, no S4 Gallop, no click - Gastrointestinal General gastrointestinal: normal bowel sounds, soft, lower abdominal tenderness, no umbilical hernia, no ventral hernia - Integumentary Integumentary: normal, normal turgor - Neurologic Neurologic: CNII-XII intact - Musculoskeletal Musculoskeletal: generalized weakness - Psychiatric Psychiatric: A&O x's 3, appropriate affect, intact judgment & insight - Labs CBC & Chem 7: 10/18/19 09:35 10/18/19 09:35 Labs: Abnormal Lab Results - Last 24 Hours (Table) 10/17/19 10/17/19 10/17/19 Range/Units 13:31 17:24 20:58 WBC (3.8-10.6) k/uL RBC (3.80-5.40) m/uL Hgb (11.4-16.0) gm/dL Hct (34.0-46.0) % Sodium (137-145) mmol/L Potassium (3.5-5.1) mmol/L Glucose (74-99) mg/dL POC Glucose (mg/dL) 149 H 139 H 150 H (75-99) mg/dL Calcium (8.4-10.2) mg/dL Total Protein (6.3-8.2) g/dL Albumin (3.5-5.0) g/dL 10/18/19 10/18/19 10/18/19 Range/Units 06:43 09:35 09:35 WBC 11.6 H (3.8-10.6) k/uL RBC 3.71 L (3.80-5.40) m/uL Hgb 10.7 L (11.4-16.0) gm/dL Hct 33.1 L (34.0-46.0) % Sodium 136 L (137-145) mmol/L Potassium 2.9 L (3.5-5.1) mmol/L Glucose 133 H (74-99) mg/dL POC Glucose (mg/dL) 147 H (75-99) mg/dL Calcium 7.5 L (8.4-10.2) mg/dL Total Protein 5.2 L (6.3-8.2) g/dL Albumin 3.2 L (3.5-5.0) g/dL Assessment and Plan Assessment: Assessment and Plan Plan: 1. Acute diverticulitis . we will keep on NPO and we will continue with Unasyn and Zofran, surgery is following. 2. HYPOKALEMIA. WE WILL REPLACE. 3. COPD without exacerbation. Continue albuterol nebulizer treatment as needed , DuoNeb treatment at bedtime, Symbicort 2 puffs twice daily. 4. adrenal insufficiency disorder. Oral Cortef discontinued and patient placed on Solu-Cortef IV 50 mg every 12 hours. 5. History of Curtis granulomatosis. Continue steroids as above. 6. GERD. Continue Protonix 40 mg every day. 4. Hyperglycemia. CBG before meals and at bedtime, NovoLog scale. 5. Chronic tobacco use and dependence--patient quit July 2018. 6. Hypertension. Continue lisinopril 20 mg daily, hydrochlorothiazide 12.5 mg daily, IV hydralazine as needed. 7. Recurrent depression. Continue Cymbalta 20 mg daily DVT prophylaxis. Heparin subcu 3 times daily. 8. COVID-19 testing. negative 9. GI prophylaxis. Continue patient on Protonix 40 mg orally once every day. 10. DVT Prophylaxis . Heparin 5000 units SC Q 8 H. 11. Full code. 12. Prognosis is guarded.
[2019-10-18] MEDS: SODIUM CHLORIDE 0.9% 1,000 ML IV SCH (11:35)
[2019-10-18] MEDS: POTASSIUM CHLORIDE 20 MEQ in WATER FOR INJECTION 1 100ML.BAG IVPB SCH ×2 (12:11→14:14)
[2019-10-18 12:14] LABS: Glucose,Whole Blood 146 mg/dL (75-99)
[2019-10-18 16:28] LABS: Glucose,Whole Blood 133 mg/dL (75-99)
[2019-10-18] MEDS: IPRATROPIUM-ALBUTEROL 3 ML NEB INHALATION SCH (20:14)
[2019-10-18 20:27] LABS: Glucose,Whole Blood 132 mg/dL (75-99)
[2019-10-18] MEDS: 0.9% NACL WITH KCL 20 MEQ/L 1,000 ML IV SCH (21:07)
[2019-10-19] MEDS: 0.9% NACL WITH KCL 20 MEQ/L 1,000 ML IV SCH ×2 (01:45→21:18)
[2019-10-19] MEDS: ONDANSETRON 4 MG/2 ML VIAL IVP PRN ×3 (05:26→21:22)
[2019-10-19] MEDS: MORPHINE SULFATE 4 MG/ML SYRINGE IV PRN ×3 (05:26→13:28)
[2019-10-19] MEDS: AMPICILLIN-SULBACTAM 3 GM in SODIUM CHLORIDE 0.9% 100 ML IVPB SCH ×3 (05:26→17:04)
[2019-10-19 07:12] LABS: Glucose,Whole Blood 127 mg/dL (75-99)
[2019-10-19] MEDS: INSULIN ASPART (NovoLOG) 100 UNIT/ML VIAL SQ SCH ×4 (07:23→21:19)
[2019-10-19] MEDS: DULoxetine HCL 20 MG CAPSULE.DR PO SCH (07:47)
[2019-10-19] MEDS: hydroCHLOROthiazide 12.5 MG CAP PO SCH (07:47)
[2019-10-19] MEDS: PANTOPRAZOLE 40 MG TABLET PO SCH (07:47)
[2019-10-19] MEDS: HYDROCORTISONE SUCCINATE 100 MG/2 ML VIAL IV SCH (07:48)
[2019-10-19] MEDS: lisinopriL 20 MG TAB PO SCH (07:48)
[2019-10-19] MEDS: HEPARIN SODIUM,PORCINE 5,000 UNIT/ML 1 ML VIAL SQ SCH ×2 (07:48→17:04)
[2019-10-19] MEDS: hydrALAZINE HCL 20 MG/ML 1 ML VIAL IVP PRN (07:48)
[2019-10-19] MEDS: SYMBICORT 160-4.5 MCG INHALER INHALATION SCH ×2 (08:10→18:58)
--- NOTE | 2019-10-19 08:47 | P.PN ---
Subjective Progress Note Date: 10/19/19 Patient seen and examined at bedside. The patient states that she is feeling slightly better. Left lower quadrant pain has improved. States nausea has improved as well. Objective - Vital Signs Vital signs: Vital Signs Temp 98.8 F 10/19/19 00:37 Pulse 115 H 10/19/19 00:37 Resp 15 10/19/19 04:05 BP 134/72 10/19/19 00:37 Pulse Ox 92 L 10/19/19 00:37 Intake & Output 10/18/19 10/19/19 10/19/19 18:59 06:59 18:59 Intake Total 875 Balance 875 Intake: Intake, IV Titration 875 Amount Ampicillin-Sulbactam 3 gm 100 In Sodium Chloride 0.9% 100 ml @ 200 mls/hr IVPB Q6H [facility] Rx#:[id number] Potassium Chloride 20 meq 75 In Water For Injection 1 100ml.bag @ 50 mls/hr IVPB Q2H [facility] Rx#: [id number] Sodium Chloride 0.9% 1, 700 000 ml @ 100 mls/hr IV . Q10H [facility] Rx#:[id number] Other: Voiding Method Toilet Toilet # Voids 1 - Constitutional General appearance: Present: cooperative, no acute distress - Respiratory Details: No difficulty with respiration - Gastrointestinal Gastrointestinal Comment(s): Soft, mild tenderness to left lower quadrant, nondistended, no rebound, no guarding - Psychiatric Psychiatric: Present: A&O x's 3 - Labs CBC & Chem 7: 10/18/19 09:35 10/18/19 17:41 Labs: Abnormal Lab Results - Last 24 Hours (Table) 10/18/19 10/18/19 10/18/19 Range/Units 09:35 09:35 12:13 WBC 11.6 H (3.8-10.6) k/uL RBC 3.71 L (3.80-5.40) m/uL Hgb 10.7 L (11.4-16.0) gm/dL Hct 33.1 L (34.0-46.0) % Sodium 136 L (137-145) mmol/L Potassium 2.9 L (3.5-5.1) mmol/L Glucose 133 H (74-99) mg/dL POC Glucose (mg/dL) 146 H (75-99) mg/dL Calcium 7.5 L (8.4-10.2) mg/dL Total Protein 5.2 L (6.3-8.2) g/dL Albumin 3.2 L (3.5-5.0) g/dL 10/18/19 10/18/19 10/18/19 Range/Units 16:27 17:41 20:22 WBC (3.8-10.6) k/uL RBC (3.80-5.40) m/uL Hgb (11.4-16.0) gm/dL Hct (34.0-46.0) % Sodium (137-145) mmol/L Potassium 3.3 L (3.5-5.1) mmol/L Glucose (74-99) mg/dL POC Glucose (mg/dL) 133 H 132 H (75-99) mg/dL Calcium (8.4-10.2) mg/dL Total Protein (6.3-8.2) g/dL Albumin (3.5-5.0) g/dL 10/19/19 Range/Units 07:11 WBC (3.8-10.6) k/uL RBC (3.80-5.40) m/uL Hgb (11.4-16.0) gm/dL Hct (34.0-46.0) % Sodium (137-145) mmol/L Potassium (3.5-5.1) mmol/L Glucose (74-99) mg/dL POC Glucose (mg/dL) 127 H (75-99) mg/dL Calcium (8.4-10.2) mg/dL Total Protein (6.3-8.2) g/dL Albumin (3.5-5.0) g/dL Assessment and Plan (1) Diverticulitis Narrative/Plan: 59-year-old female with acute diverticulitis - Abdominal pain improving, advance to clear liquid diet - Continue IV antibiotics - Continue medical care for medical comorbidities - Will continue to follow and make recommendations based on the patient's clinical progress. Current Visit: Yes Status: Acute Code(s): K57.92 - DVTRCLI OF INTEST, PART UNSP, W/O PERF OR ABSCESS W/O BLEED SNOMED Code(s): 926131129
[2019-10-19 08:53] LABS: Basophils % (A) 0 %; Eosinophils # (A) 0.1 k/uL (0-0.7); Eosinophils % (A) 1 %; HCT 33.5 % (34.0-46.0); HGB 10.8 gm/dL (11.4-16.0); Lymphocytes # (A) 0.9 k/uL (1.0-4.8); Lymphocytes % (A) 13 %; MCHC 32.2 g/dL (31.0-37.0); MCV 90.2 fL (80.0-100.0); Mean Platelet Volume 7.1; Monocytes # (A) 0.2 k/uL (0-1.0); Monocytes % (A) 3 %; Neutrophils % (A) 82 %; Platelet Count 312 k/uL (150-450); RBC 3.72 m/uL (3.80-5.40); RDW 13.6 % (11.5-15.5); WBC 7.3 k/uL (3.8-10.6)
[2019-10-19 09:07] LABS: ALT 29 U/L (4-34); African American GFR (CKD) >90 (>60 ml/min/1.73 sqM); Albumin 3.1 g/dL (3.5-5.0); Anion Gap 8 mmol/L; Blood Urea Nitrogen 14 mg/dL (7-17); Calcium 7.6 mg/dL (8.4-10.2); Carbon Dioxide 26 mmol/L (22-30); Chloride 103 mmol/L (98-107); Glucose 126 mg/dL (74-99); Non-African American GFR(CKD) >90 (>60 ml/min/1.73 sqM); Sodium 137 mmol/L (137-145); Total Bilirubin 0.7 mg/dL (0.2-1.3); Total Protein 5.3 g/dL (6.3-8.2)
[2019-10-19 09:26] LABS: AST 26 U/L (14-36); Alkaline Phosphatase 94 U/L (38-126); Magnesium 1.7 mg/dL (1.6-2.3); Potassium 3.4 mmol/L (3.5-5.1)
[2019-10-19 11:18] LABS: Glucose,Whole Blood 140 mg/dL (75-99)
[2019-10-19] MEDS: CALCIUM CARB-VIT D 500MG-200UN 1 EACH TAB PO SCH ×2 (11:20→21:39)
[2019-10-19] MEDS: CHOLECALCIFEROL 1,000 UNIT TAB PO SCH (11:21)
[2019-10-19] MEDS: NON FORMULARY DRUG (Mirabegron [Myrbetriq] 50 MG) PO SCH (11:21)
[2019-10-19] MEDS: IBUPROFEN 600 MG TAB PO SCH ×3 (11:21→21:39)
--- NOTE | 2019-10-19 11:57 | P.PN ---
Subjective Progress Note Date: 10/19/19 This is a 59-year-old female patient of Dr. Alvarez and Dr. Damico. with past medical history of diabetes mellitus type 2, Curtis granulomatosis, gastroesophageal reflux disease, hypertension. Patient presented to [facility] due to abdominal pain as well as diarrhea that it going on for 3 weeks. She has at least 1 loose stool daily. Yesterday she developed nausea and vomiting as well as lower abdominal pain. No fever or chills. No shortness of breath, chest pain, headache. Patient came into [facility] emergency center for evaluation and found to be afebrile, heart rate 90, blood pressure 153/81, pulse ox 94% on room air. WBC 14.7, hemoglobin 12.8, platelet count 385. Sodium 138, potassium 3.4, chloride 101, CO2 26, BUN 20 creatinine 0.94. Blood sugar 132. Lactic acid 1.5. Total bilirubin 0.5, AST 29, ALT 52, alkaline phosphatase 69. Lipase 1682. Urinalysis clear with nitrate and leukoesterase negative. CAT scan of the abdomen and pelvis with contrast revealed sigmoid diverticula with focal diverticulitis in the distal sigmoid colon. Normal appendix. Numerous nonobstructed bilateral renal calculi. Patient was given 1 L of IV fluids, Zofran, morphine with improvement of her pain and [facility]. Consult with general surgery regarding diverticulitis. Patient is currently on clear liquid diet. COVID-19 testing in process. 10/17: Still complaining of increase pain in the abdomen today, there is no nausea or vomiting we will continue with IVF and we will change to add KCL , we will keep NPO , reevaluate in 24 hours, surgery consult appreciated, there is no chest pain or shortness of breath, no coughing, she has not had any bowel movements , she is passing gas. 10/18: Patient is laying down in bed she continues to have increased pain left lower quadrant, she continues to spit up some sputum, she has no chest pain or any shortness breath at this time, she has not had any bowel movement. She was started on clear liquid diet however she did not get anything yet beside water and ice, she seems clinically better she continues to be hypokalemic we will replace again. We will increase her IV fluids to 100 mL an hour. Objective - Vital Signs Vital signs: Vital Signs Temp 98.4 F 10/19/19 07:00 Pulse 104 H 10/19/19 07:50 Resp 15 10/19/19 07:50 BP 186/100 10/19/19 07:00 Pulse Ox 92 L 10/19/19 07:00 Intake & Output 10/18/19 10/19/19 10/19/19 18:59 06:59 18:59 Intake Total 875 Balance 875 Intake: Intake, IV Titration 875 Amount Ampicillin-Sulbactam 3 gm 100 In Sodium Chloride 0.9% 100 ml @ 200 mls/hr IVPB Q6H [facility] Rx#:[id number] Potassium Chloride 20 meq 75 In Water For Injection 1 100ml.bag @ 50 mls/hr IVPB Q2H [facility] Rx#: [id number] Sodium Chloride 0.9% 1, 700 000 ml @ 100 mls/hr IV . Q10H [facility] Rx#:[id number] Other: Voiding Method Toilet Toilet Toilet # Voids 1 - Exam Review of Systems Constitutional: Reports fatigue, Reports weakness, Denies chills, Denies fever Eyes: denies blurred vision, denies pain Ears, nose, mouth and throat: Denies headache, Denies nasal congestion, Denies nasal discharge, Denies sore throat, Denies vertigo Cardiovascular: Denies chest pain, Denies dyspnea on exertion, Denies leg edema, Denies shortness of breath, Denies syncope Respiratory: Denies cough, Denies cough with sputum, Denies dyspnea, Denies excessive sputum, Denies hemoptysis, Denies respiratory infections Gastrointestinal: Reports abdominal pain, Reports change in bowel habits, Reports diarrhea, Reports loss of appetite, Reports nausea, Reports vomiting, Denies BRBPR, Denies hematemesis, Denies hematochezia, Denies melena Genitourinary: Denies dysuria, Denies hematuria, Denies urgency, Denies urinary frequency Menstruation: Reports postmenopausal Musculoskeletal: Denies frequent falls, Denies gait dysfunction, Denies myalgias Integumentary: Denies pruritus, Denies rash, Denies wounds Neurological: Denies change in mentation, Denies change in speech, Denies gait dysfunction, Denies numbness, Denies seizures, Denies weakness Psychiatric: Denies anxiety, Denies depression Endocrine: Denies fatigue, Denies weight change - Constitutional General appearance: mild distress, obese - EENT Eyes: anicteric sclerae, EOMI, PERRLA, no ptosis, no scleral icterus, normal appearance ENT: hearing grossly normal, NA/AT, normal oropharynx, no thrush Ears: bilateral: normal - Neck Neck: no lymphadenopathy, normal ROM, no rigidity, no stridor, no thyromegaly Carotids: bilateral: upstroke normal Thyroid: bilateral: normal size - Respiratory Respiratory: bilateral: diminished, wheezing, prolonged expiration, negative: dullness, rales, rhonchi Frequent moist cough - Cardiovascular Rhythm: regular Heart sounds: normal: S1, S2 Abnormal Heart Sounds: no systolic murmur, no rub, no S3 Gallop, no S4 Gallop, no click - Gastrointestinal General gastrointestinal: normal bowel sounds, soft, lower abdominal tenderness, no umbilical hernia, no ventral hernia - Integumentary Integumentary: normal, normal turgor - Neurologic Neurologic: CNII-XII intact - Musculoskeletal Musculoskeletal: generalized weakness - Psychiatric Psychiatric: A&O x's 3, appropriate affect, intact judgment & insight - Labs CBC & Chem 7: 10/19/19 08:15 10/19/19 08:15 Labs: Abnormal Lab Results - Last 24 Hours (Table) 10/18/19 10/18/19 10/18/19 Range/Units 12:13 16:27 17:41 RBC (3.80-5.40) m/uL Hgb (11.4-16.0) gm/dL Hct (34.0-46.0) % Lymphocytes # (1.0-4.8) k/uL Potassium 3.3 L (3.5-5.1) mmol/L Glucose (74-99) mg/dL POC Glucose (mg/dL) 146 H 133 H (75-99) mg/dL Calcium (8.4-10.2) mg/dL Total Protein (6.3-8.2) g/dL Albumin (3.5-5.0) g/dL Lipase (23-300) U/L 10/18/19 10/19/19 10/19/19 Range/Units 20:22 07:11 08:15 RBC 3.72 L (3.80-5.40) m/uL Hgb 10.8 L (11.4-16.0) gm/dL Hct 33.5 L (34.0-46.0) % Lymphocytes # 0.9 L (1.0-4.8) k/uL Potassium (3.5-5.1) mmol/L Glucose (74-99) mg/dL POC Glucose (mg/dL) 132 H 127 H (75-99) mg/dL Calcium (8.4-10.2) mg/dL Total Protein (6.3-8.2) g/dL Albumin (3.5-5.0) g/dL Lipase (23-300) U/L 10/19/19 Range/Units 08:15 RBC (3.80-5.40) m/uL Hgb (11.4-16.0) gm/dL Hct (34.0-46.0) % Lymphocytes # (1.0-4.8) k/uL Potassium 3.4 L (3.5-5.1) mmol/L Glucose 126 H (74-99) mg/dL POC Glucose (mg/dL) (75-99) mg/dL Calcium 7.6 L (8.4-10.2) mg/dL Total Protein 5.3 L (6.3-8.2) g/dL Albumin 3.1 L (3.5-5.0) g/dL Lipase 14 L (23-300) U/L Assessment and Plan Assessment: Assessment and Plan Plan: 1. Acute diverticulitis . Improving Patient will be switched. Without, we'll keep on that for another 24 hours, continue current pain management, increase activity, increase her IV fluid 100 mL per hour. 2. HYPOKALEMIA. WE WILL REPLACE. 3. COPD without exacerbation. Continue albuterol nebulizer treatment as needed, DuoNeb treatment at bedtime, Symbicort 2 puffs twice daily. 4. adrenal insufficiency disorder. Oral Cortef discontinued and patient placed on Solu-Cortef IV 50 mg every 12 hours. 5. History of Curtis granulomatosis. Continue steroids as above. 6. GERD. Continue Protonix 40 mg every day. 4. Hyperglycemia. CBG before meals and at bedtime, NovoLog scale. 5. Chronic tobacco use and dependence--patient quit July 2018. 6. Hypertension. Continue lisinopril 20 mg daily, hydrochlorothiazide 12.5 mg daily, IV hydralazine as needed. 7. Recurrent depression. Continue Cymbalta 20 mg daily DVT prophylaxis. Heparin subcu 3 times daily. 8. COVID-19 testing. negative 9. GI prophylaxis. Continue patient on Protonix 40 mg orally once every day. 10. DVT Prophylaxis . Heparin 5000 units SC Q 8 H. 11. Guarded prognosis.
[2019-10-19] MEDS: POTASSIUM CHLORIDE ER 20 MEQ TAB.ER PO STA ×2 (13:28→13:31)
[2019-10-19 16:41] LABS: Glucose,Whole Blood 117 mg/dL (75-99)
[2019-10-19 20:47] LABS: Glucose,Whole Blood 116 mg/dL (75-99)
[2019-10-19] MEDS: IPRATROPIUM-ALBUTEROL 3 ML NEB INHALATION SCH (23:16)
[2019-10-20] MEDS: MORPHINE SULFATE 4 MG/ML SYRINGE IV PRN ×4 (00:36→23:18)
[2019-10-20] MEDS: HYDROCORTISONE SUCCINATE 100 MG/2 ML VIAL IV SCH ×3 (00:36→20:05)
[2019-10-20] MEDS: HEPARIN SODIUM,PORCINE 5,000 UNIT/ML 1 ML VIAL SQ SCH ×4 (00:37→23:18)
[2019-10-20] MEDS: AMPICILLIN-SULBACTAM 3 GM in SODIUM CHLORIDE 0.9% 100 ML IVPB SCH ×5 (04:41→23:17)
[2019-10-20] MEDS: 0.9% NACL WITH KCL 20 MEQ/L 1,000 ML IV SCH ×2 (04:42→07:39)
[2019-10-20 06:46] LABS: Glucose,Whole Blood 134 mg/dL (75-99)
[2019-10-20] MEDS: SYMBICORT 160-4.5 MCG INHALER INHALATION SCH ×2 (07:03→20:56)
[2019-10-20] MEDS: INSULIN ASPART (NovoLOG) 100 UNIT/ML VIAL SQ SCH ×4 (07:34→20:09)
[2019-10-20] MEDS: CHOLECALCIFEROL 1,000 UNIT TAB PO SCH (07:35)
[2019-10-20] MEDS: hydroCHLOROthiazide 12.5 MG CAP PO SCH (07:35)
[2019-10-20] MEDS: PANTOPRAZOLE 40 MG TABLET PO SCH (07:36)
[2019-10-20] MEDS: IBUPROFEN 600 MG TAB PO SCH ×3 (07:36→23:17)
[2019-10-20] MEDS: lisinopriL 20 MG TAB PO SCH (07:36)
[2019-10-20] MEDS: CALCIUM CARB-VIT D 500MG-200UN 1 EACH TAB PO SCH ×2 (07:36→20:08)
[2019-10-20] MEDS: DULoxetine HCL 20 MG CAPSULE.DR PO SCH (07:39)
--- NOTE | 2019-10-20 08:00 | P.PN ---
Subjective Progress Note Date: 10/20/19 Patient seen and examined at bedside. States she is feeling better today. States she has had 2 bowel movements Objective - Vital Signs Vital signs: Vital Signs Temp 98.3 F 10/20/19 07:00 Pulse 88 10/20/19 07:00 Resp 18 10/20/19 07:00 BP 170/91 10/20/19 07:00 Pulse Ox 96 10/20/19 07:00 Intake & Output 10/19/19 10/20/19 10/20/19 18:59 06:59 18:59 Intake Total 650 700 Balance 650 700 Intake: Intake, IV Titration 650 400 Amount 0.9% NaCl with KCl 20 Meq 650 400 /l 1,000 ml @ 100 mls/hr IV .Q10H [facility] Rx#: [id number] Oral 300 Other: Voiding Method Toilet Toilet # Voids 1 - Constitutional General appearance: Present: cooperative, no acute distress - EENT Eyes: Present: PERRLA - Gastrointestinal Gastrointestinal Comment(s): Soft, improved tenderness in the left lower quadrant, nondistended, no rebound, no guarding - Psychiatric Psychiatric: Present: A&O x's 3 - Labs CBC & Chem 7: 10/19/19 08:15 10/19/19 08:15 Labs: Abnormal Lab Results - Last 24 Hours (Table) 10/19/19 10/19/19 10/19/19 Range/Units 08:15 08:15 11:18 RBC 3.72 L (3.80-5.40) m/uL Hgb 10.8 L (11.4-16.0) gm/dL Hct 33.5 L (34.0-46.0) % Lymphocytes # 0.9 L (1.0-4.8) k/uL Potassium 3.4 L (3.5-5.1) mmol/L Glucose 126 H (74-99) mg/dL POC Glucose (mg/dL) 140 H (75-99) mg/dL Calcium 7.6 L (8.4-10.2) mg/dL Total Protein 5.3 L (6.3-8.2) g/dL Albumin 3.1 L (3.5-5.0) g/dL Lipase 14 L (23-300) U/L 10/19/19 10/19/19 10/20/19 Range/Units 16:39 20:43 06:43 RBC (3.80-5.40) m/uL Hgb (11.4-16.0) gm/dL Hct (34.0-46.0) % Lymphocytes # (1.0-4.8) k/uL Potassium (3.5-5.1) mmol/L Glucose (74-99) mg/dL POC Glucose (mg/dL) 117 H 116 H 134 H (75-99) mg/dL Calcium (8.4-10.2) mg/dL Total Protein (6.3-8.2) g/dL Albumin (3.5-5.0) g/dL Lipase (23-300) U/L Assessment and Plan (1) Diverticulitis Narrative/Plan: 59-year-old female with acute diverticulitis - Abdominal pain improving, advance to soft diet - Continue IV antibiotics - Continue medical care for medical comorbidities - Will require follow-up in the office and colonoscopy in 6-8 weeks - Will continue to follow and make recommendations based on the patient's clinical progress. Current Visit: Yes Status: Acute Code(s): K57.92 - DVTRCLI OF INTEST, PART UNSP, W/O PERF OR ABSCESS W/O BLEED SNOMED Code(s): 284243536
[2019-10-20] MEDS: NON FORMULARY DRUG (Mirabegron [Myrbetriq] 50 MG) PO SCH (10:29)
[2019-10-20 10:51] LABS: Basophils % (A) 0 %; Eosinophils % (A) 1 %; HCT 31.3 % (34.0-46.0); HGB 9.9 gm/dL (11.4-16.0); Lymphocytes # (A) 0.5 k/uL (1.0-4.8); Lymphocytes % (A) 6 %; MCH 28.7 pg (25.0-35.0); MCHC 31.7 g/dL (31.0-37.0); MCV 90.5 fL (80.0-100.0); Monocytes # (A) 0.3 k/uL (0-1.0); Monocytes % (A) 4 %; Neutrophils % (A) 88 %; Platelet Count 362 k/uL (150-450); RBC 3.46 m/uL (3.80-5.40); RDW 13.7 % (11.5-15.5); WBC 7.9 k/uL (3.8-10.6)
[2019-10-20 11:15] LABS: African American GFR (CKD) >90 (>60 ml/min/1.73 sqM); Anion Gap 7 mmol/L; Blood Urea Nitrogen 12 mg/dL (7-17); Calcium 7.5 mg/dL (8.4-10.2); Carbon Dioxide 27 mmol/L (22-30); Chloride 103 mmol/L (98-107); Glucose 135 mg/dL (74-99); Non-African American GFR(CKD) >90 (>60 ml/min/1.73 sqM); Sodium 137 mmol/L (137-145)
[2019-10-20 11:33] LABS: Glucose,Whole Blood 129 mg/dL (75-99)
[2019-10-20] MEDS ORDERED: Potassium Replacement Protocol 1 EACH MISC MISCELLANE PRN ×2 (12:37→23:04)
[2019-10-20] MEDS: POTASSIUM CHLORIDE 20 MEQ in WATER FOR INJECTION 1 100ML.BAG IVPB SCH ×3 (13:44→18:06)
[2019-10-20] MEDS: SODIUM CHLORIDE 0.9% 1,000 ML IV SCH (13:47)
--- NOTE | 2019-10-20 13:59 | P.PN ---
Subjective Progress Note Date: 10/20/19 This is a 59-year-old female patient of Dr. Alvarez and Dr. Damico. with past medical history of diabetes mellitus type 2, Curtis granulomatosis, gastroesophageal reflux disease, hypertension. Patient presented to [facility] due to abdominal pain as well as diarrhea that it going on for 3 weeks. She has at least 1 loose stool daily. Yesterday she developed nausea and vomiting as well as lower abdominal pain. No fever or chills. No shortness of breath, chest pain, headache. Patient came into [facility] emergency center for evaluation and found to be afebrile, heart rate 90, blood pressure 153/81, pulse ox 94% on room air. WBC 14.7, hemoglobin 12.8, platelet count 385. Sodium 138, potassium 3.4, chloride 101, CO2 26, BUN 20 creatinine 0.94. Blood sugar 132. Lactic acid 1.5. Total bilirubin 0.5, AST 29, ALT 52, alkaline phosphatase 69. Lipase 1682. Urinalysis clear with nitrate and leukoesterase negative. CAT scan of the abdomen and pelvis with contrast revealed sigmoid diverticula with focal diverticulitis in the distal sigmoid colon. Normal appendix. Numerous nonobstructed bilateral renal calculi. Patient was given 1 L of IV fluids, Zofran, morphine with improvement of her pain and [facility] Consult with general surgery regarding diverticulitis. Patient is currently on clear liquid diet. COVID-19 testing in process. 10/17: Still complaining of increase pain in the abdomen today, there is no nausea or vomiting we will continue with IVF and we will change to add KCL , we will keep NPO , reevaluate in 24 hours, surgery consult appreciated, there is no chest pain or shortness of breath, no coughing, she has not had any bowel movements , she is passing gas. 10/18: Patient is laying down in bed she continues to have increased pain left lower quadrant, she continues to spit up some sputum, she has no chest pain or any shortness breath at this time, she has not had any bowel movement. She was started on clear liquid diet however she did not get anything yet beside water and ice, she seems clinically better she continues to be hypokalemic we will replace again. We will increase her IV fluids to 100 mL an hour. 10/19: Patient has been seen by Dr. Ontiveros this morning. She has had a few bowel movements in the past 24 hours. She states she has had no vomiting for greater than 24 hours since about 5:30 in the morning on Sunday which she relates to potassium. Her abdomen is fractionating still operator with bloating but much improved. She states she slept okay during the night. Repeat potassium today is at 3 and will be replaced. Repeat potassium and magnesium level to be done at 7 PM. IV fluids decreased to 75 mL per hour. Patient has been afebrile, heart rate 88, blood pressure 170/91, pulse ox 96% on room air. A repeat blood work reveals hemoglobin 9.9, WBC 7.9. Blood sugars running between 129 and 134. Creatinine 0.7. Anticipate probable discharge tomorrow. Objective - Vital Signs Vital signs: Vital Signs Temp 98.3 F 10/20/19 07:00 Pulse 88 10/20/19 07:00 Resp 18 10/20/19 07:00 BP 170/91 10/20/19 07:00 Pulse Ox 96 10/20/19 07:00 Intake & Output 10/19/19 10/20/19 10/20/19 18:59 06:59 18:59 Intake Total 650 700 Balance 650 700 Intake: Intake, IV Titration 650 400 Amount 0.9% NaCl with KCl 20 Meq 650 400 /l 1,000 ml @ 100 mls/hr IV .Q10H [facility] Rx#: [id number] Oral 300 Other: Voiding Method Toilet Toilet Toilet # Voids 1 - Exam Review of Systems Constitutional: Reports fatigue, Reports weakness, Denies chills, Denies fever Eyes: denies blurred vision, denies pain Ears, nose, mouth and throat: Denies headache, Denies nasal congestion, Denies nasal discharge, Denies sore throat, Denies vertigo Cardiovascular: Denies chest pain, Denies dyspnea on exertion, Denies leg edema, Denies shortness of breath, Denies syncope Respiratory: Denies cough, Denies cough with sputum, Denies dyspnea, Denies excessive sputum, Denies hemoptysis, Denies respiratory infections Gastrointestinal: Reports abdominal pain, Reports change in bowel habits, Reports diarrhea, Reports loss of appetite, denies nausea, denies vomiting, Denies BRBPR, Denies hematemesis, Denies hematochezia, Denies melena Genitourinary: Denies dysuria, Denies hematuria, Denies urgency, Denies urinary frequency Menstruation: Reports postmenopausal Musculoskeletal: Denies frequent falls, Denies gait dysfunction, Denies myalgias Integumentary: Denies pruritus, Denies rash, Denies wounds Neurological: Denies change in mentation, Denies change in speech, Denies gait dysfunction, Denies numbness, Denies seizures, Denies weakness Psychiatric: Denies anxiety, Denies depression Endocrine: Denies fatigue, Denies weight change Physical Examination - Constitutional General appearance: no distress, obese - EENT Eyes: anicteric sclerae, EOMI, PERRLA, no ptosis, no scleral icterus, normal appearance ENT: hearing grossly normal, NA/AT, normal oropharynx, no thrush Ears: bilateral: normal - Neck Neck: no lymphadenopathy, normal ROM, no rigidity, no stridor, no thyromegaly Carotids: bilateral: upstroke normal Thyroid: bilateral: normal size - Respiratory Respiratory: bilateral: diminished, wheezing, prolonged expiration, negative: dullness, rales, rhonchi Frequent moist cough - Cardiovascular Rhythm: regular Heart sounds: normal: S1, S2 Abnormal Heart Sounds: no systolic murmur, no rub, no S3 Gallop, no S4 Gallop, no click - Gastrointestinal General gastrointestinal: normal bowel sounds, soft, lower abdominal generalized tenderness, no umbilical hernia, no ventral hernia - Integumentary Integumentary: normal, normal turgor - Neurologic Neurologic: CNII-XII intact - Musculoskeletal Musculoskeletal: generalized weakness - Psychiatric Psychiatric: A&O x's 3, appropriate affect, intact judgment & insight - Labs CBC & Chem 7: 10/20/19 10:03 10/20/19 10:03 Labs: Abnormal Lab Results - Last 24 Hours (Table) 10/19/19 10/19/19 10/20/19 Range/Units 16:39 20:43 06:43 RBC (3.80-5.40) m/uL Hgb (11.4-16.0) gm/dL Hct (34.0-46.0) % Lymphocytes # (1.0-4.8) k/uL Potassium (3.5-5.1) mmol/L Glucose (74-99) mg/dL POC Glucose (mg/dL) 117 H 116 H 134 H (75-99) mg/dL Calcium (8.4-10.2) mg/dL 10/20/19 10/20/19 10/20/19 Range/Units 10:03 10:03 11:30 RBC 3.46 L (3.80-5.40) m/uL Hgb 9.9 L (11.4-16.0) gm/dL Hct 31.3 L (34.0-46.0) % Lymphocytes # 0.5 L (1.0-4.8) k/uL Potassium 3.0 L (3.5-5.1) mmol/L Glucose 135 H (74-99) mg/dL POC Glucose (mg/dL) 129 H (75-99) mg/dL Calcium 7.5 L (8.4-10.2) mg/dL Assessment and Plan Plan: 1. Acute diverticulitis. IV fluids decreased at 75 mL per hour. Continue current diet per general surgery. Increase activity. Continue current pain management, possible discharge tomorrow. 2. HYPOKALEMIA. WE WILL REPLACE. Recheck potassium and magnesium levels at 7 PM 3. COPD without exacerbation. Continue albuterol nebulizer treatment as needed, DuoNeb treatment at bedtime, Symbicort 2 puffs twice daily. 4. adrenal insufficiency disorder. Oral Cortef discontinued and patient placed on Solu-Cortef IV 50 mg every 12 hours. 5. History of Curtis granulomatosis. Continue steroids as above. 6. GERD. Continue Protonix 40 mg every day. 4. Hyperglycemia. CBG before meals and at bedtime, NovoLog scale. 5. Chronic tobacco use and dependence--patient quit July 2018. 6. Hypertension. Continue lisinopril 20 mg daily, hydrochlorothiazide 12.5 mg daily, IV hydralazine as needed. 7. Recurrent depression. Continue Cymbalta 20 mg daily DVT prophylaxis. Heparin subcu 3 times daily. 8. COVID-19 infection not present. 9. GI prophylaxis. Continue patient on Protonix 40 mg orally once every day. 10. DVT Prophylaxis . Heparin 5000 units SC Q 8 H. Discharge plan: Home on Sunday Impression and plan of care have been directed as dictated by the signing physician. Lanette Mccarthy nurse practitioner acting as scribe for signing physician.
[2019-10-20] MEDS: hydrALAZINE HCL 20 MG/ML 1 ML VIAL IVP PRN (16:35)
[2019-10-20 16:42] LABS: Glucose,Whole Blood 109 mg/dL (75-99)
[2019-10-20 20:06] LABS: Glucose,Whole Blood 115 mg/dL (75-99)
[2019-10-20] MEDS: IPRATROPIUM-ALBUTEROL 3 ML NEB INHALATION SCH (20:57)
[2019-10-20 22:51] LABS: Magnesium 2.1 mg/dL (1.6-2.3); Potassium 3.4 mmol/L (3.5-5.1)
[2019-10-20] MEDS: POTASSIUM CHLORIDE 10 MEQ in WATER FOR INJECTION 1 100ML.BAG IVPB SCH (23:18)
[2019-10-21] MEDS: POTASSIUM CHLORIDE 10 MEQ in WATER FOR INJECTION 1 100ML.BAG IVPB SCH ×6 (00:40→17:33)
[2019-10-21] MEDS: SODIUM CHLORIDE 0.9% 1,000 ML IV SCH ×3 (00:42→18:47)
[2019-10-21] MEDS: AMPICILLIN-SULBACTAM 3 GM in SODIUM CHLORIDE 0.9% 100 ML IVPB SCH ×4 (05:44→23:16)
[2019-10-21 07:01] LABS: Glucose,Whole Blood 120 mg/dL (75-99)
[2019-10-21] MEDS: INSULIN ASPART (NovoLOG) 100 UNIT/ML VIAL SQ SCH ×4 (07:15→20:42)
[2019-10-21] MEDS: HEPARIN SODIUM,PORCINE 5,000 UNIT/ML 1 ML VIAL SQ SCH ×2 (07:17→18:09)
[2019-10-21] MEDS: DULoxetine HCL 20 MG CAPSULE.DR PO SCH (07:17)
[2019-10-21] MEDS: CALCIUM CARB-VIT D 500MG-200UN 1 EACH TAB PO SCH ×2 (07:17→20:42)
[2019-10-21] MEDS: hydroCHLOROthiazide 12.5 MG CAP PO SCH (07:17)
[2019-10-21] MEDS: CHOLECALCIFEROL 1,000 UNIT TAB PO SCH (07:17)
[2019-10-21] MEDS: HYDROCORTISONE SUCCINATE 100 MG/2 ML VIAL IV SCH ×3 (07:17→23:16)
[2019-10-21] MEDS: IBUPROFEN 600 MG TAB PO SCH ×3 (07:18→21:43)
[2019-10-21] MEDS: PANTOPRAZOLE 40 MG TABLET PO SCH (07:18)
[2019-10-21] MEDS: NON FORMULARY DRUG (Mirabegron [Myrbetriq] 50 MG) PO SCH (07:18)
[2019-10-21] MEDS: lisinopriL 20 MG TAB PO SCH (07:18)
--- NOTE | 2019-10-21 08:22 | XR ---
EXAMINATION TYPE: XR abdomen 2V DATE OF EXAM: 10/21/2019 HISTORY: Pain. Technique: 2 views of the abdomen are submitted. Comparison: None. Findings: There is a large amount of pneumoperitoneum noted underneath both hemidiaphragms. Suspect perforated viscus. The Bowel gas pattern is nonspecific and nonobstructive. No sizable air-fluid levels are seen. No mass effects are noted. No renal calcifications are identified. IMPRESSION: 1. Large amount of pneumoperitoneum as noted above. A Red level critical message alert has been initiated for Connor Alvarez MD via the [employer] on 10/21/2019 8:19 AM. This message alert has been sent to Connor Alvarez MD via t he preferences provided by the clinician for the receipt of Radiology Critical Findings. Message ID [id number].
[2019-10-21] MEDS: SYMBICORT 160-4.5 MCG INHALER INHALATION SCH ×2 (08:53→20:02)
[2019-10-21] MEDS ORDERED: HYDROCORTISONE SUCCINATE 100 MG/2 ML VIAL IV SCH (09:00)
[2019-10-21 09:20] LABS: African American GFR (CKD) >90 (>60 ml/min/1.73 sqM); Anion Gap 6 mmol/L; Blood Urea Nitrogen 13 mg/dL (7-17); Calcium 7.9 mg/dL (8.4-10.2); Carbon Dioxide 27 mmol/L (22-30); Chloride 104 mmol/L (98-107); Glucose 102 mg/dL (74-99); Non-African American GFR(CKD) >90 (>60 ml/min/1.73 sqM); Potassium 3.2 mmol/L (3.5-5.1); Sodium 137 mmol/L (137-145)
--- NOTE | 2019-10-21 09:31 | P.PN ---
Progress Note - Text Progress Note Date: 10/21/19 Received a phone call this morning from Dr. Alvarez about abdominal x-ray findings of pneumoperitoneum from this morning. I did evaluate the patient and the patient is stating that her pain is mostly resolved and was actually requesting discharge this morning. She states that she continues to have flatus and bowel movements. She was complaining of some distention which resulted in abdominal x-ray being ordered. Currently, she still does have significant amount of abdominal distention. After discussion with Dr. 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 I had a long discussion with the patient about her clinical situation. Recommendation was made for exploratory laparotomy due to the new clinical finding of distention and pneumoperitoneum. She does understand that this would result in likely colon resection and ostomy creation. All risks, benefits and alternatives were discussed with the patient. Patient is agreeable with this plan. Michelel Ontiveros, DO
[2019-10-21] MEDS ORDERED: Potassium Replacement Protocol 1 EACH MISC MISCELLANE PRN (09:42)
--- NOTE | 2019-10-21 10:07 | P.PN ---
Subjective Progress Note Date: 10/21/19 This is a 59-year-old female patient of Dr. Alvarez and Dr. Damico. with past medical history of diabetes mellitus type 2, Curtis granulomatosis, gastroesophageal reflux disease, hypertension. Patient presented to [facility] due to abdominal pain as well as diarrhea that it going on for 3 weeks. She has at least 1 loose stool daily. Yesterday she developed nausea and vomiting as well as lower abdominal pain. No fever or chills. No shortness of breath, chest pain, headache. Patient came into [facility] emergency center for evaluation and found to be afebrile, heart rate 90, blood pressure 153/81, pulse ox 94% on room air. WBC 14.7, hemoglobin 12.8, platelet count 385. Sodium 138, potassium 3.4, chloride 101, CO2 26, BUN 20 creatinine 0.94. Blood sugar 132. Lactic acid 1.5. Total bilirubin 0.5, AST 29, ALT 52, alkaline phosphatase 69. Lipase 1682. Urinalysis clear with nitrate and leukoesterase negative. CAT scan of the abdomen and pelvis with contrast revealed sigmoid diverticula with focal diverticulitis in the distal sigmoid colon. Normal appendix. Numerous nonobstructed bilateral renal calculi. Patient was given 1 L of IV fluids, Zofran, morphine with improvement of her pain and [facility]. Consult with general surgery regarding diverticulitis. Patient is currently on clear liquid diet. COVID-19 testing in process. 10/17: Still complaining of increase pain in the abdomen today, there is no nausea or vomiting we will continue with IVF and we will change to add KCL , we will keep NPO , reevaluate in 24 hours, surgery consult appreciated, there is no chest pain or shortness of breath, no coughing, she has not had any bowel movements , she is passing gas. 10/18: Patient is laying down in bed she continues to have increased pain left lower quadrant, she continues to spit up some sputum, she has no chest pain or any shortness breath at this time, she has not had any bowel movement. She was started on clear liquid diet however she did not get anything yet beside water and ice, she seems clinically better she continues to be hypokalemic we will replace again. We will increase her IV fluids to 100 mL an hour. 10/19: Patient has been seen by Dr. Ontiveros this morning. She has had a few bowel movements in the past 24 hours. She states she has had no vomiting for greater than 24 hours since about 5:30 in the morning on Sunday which she relates to potassium. Her abdomen is mixing machine tender cork rod with bloating but much improved. She states she slept okay during the night. Repeat potassium today is at 3 and will be replaced. Repeat potassium and magnesium level to be done at 7 PM. IV fluids decreased to 75 mL per hour. Patient has been afebrile, heart rate 88, blood pressure 170/91, pulse ox 96% on room air. A repeat blood work reveals hemoglobin 9.9, WBC 7.9. Blood sugars running between 129 and 134. Creatinine 0.7. Anticipate probable discharge tomorrow. 10/20: The patient was anticipating discharge home today but she still had abdominal distention. Urgent Abdominal x-ray was ordered which did show significant amount of abdominal distention. Patient was made nothing by mouth and Dr. Ontiveros was contacted by Dr. Alvarez regarding concerns for perforation. Patient has been scheduled for exploratory laparotomy for today. Patient has been afebrile, heart rate 89, blood pressure 172/104. A repeat blood work reveals sodium 137, potassium 3.2, chloride 104, CO2 27, BUN 13 and creatinine 0.67. Objective - Vital Signs Vital signs: Vital Signs Temp 98.3 F 10/21/19 07:00 Pulse 89 10/21/19 07:00 Resp 18 10/21/19 07:00 BP 172/104 10/21/19 07:00 Pulse Ox 97 10/21/19 07:00 Intake & Output 10/20/19 10/21/19 10/21/19 18:59 06:59 18:59 Intake Total 700 Balance 700 Intake: Intake, IV Titration 700 Amount 0.9% NaCl with KCl 20 Meq 600 /l 1,000 ml @ 100 mls/hr IV .Q10H [facility] Rx#: [id number] Ampicillin-Sulbactam 3 gm 100 In Sodium Chloride 0.9% 100 ml @ 200 mls/hr IVPB Q6H [facility] Rx#:[id number] Other: Voiding Method Toilet Toilet Toilet - Exam Review of Systems Constitutional: Reports fatigue, Reports weakness, Denies chills, Denies fever Eyes: denies blurred vision, denies pain Ears, nose, mouth and throat: Denies headache, Denies nasal congestion, Denies nasal discharge, Denies sore throat, Denies vertigo Cardiovascular: Denies chest pain, Denies dyspnea on exertion, Denies leg edema, Denies shortness of breath, Denies syncope Respiratory: Denies cough, Denies cough with sputum, Denies dyspnea, Denies excessive sputum, Denies hemoptysis, Denies respiratory infections Gastrointestinal: Reports abdominal pain-improved, Reports change in bowel habits, Reports diarrhea, Reports loss of appetite, denies nausea, denies vomiting, Denies BRBPR, Denies hematemesis, Denies hematochezia, Denies melena, reports abdominal distention Genitourinary: Denies dysuria, Denies hematuria, Denies urgency, Denies urinary frequency Menstruation: Reports postmenopausal Musculoskeletal: Denies frequent falls, Denies gait dysfunction, Denies myalgias Integumentary: Denies pruritus, Denies rash, Denies wounds Neurological: Denies change in mentation, Denies change in speech, Denies gait dysfunction, Denies numbness, Denies seizures, Denies weakness Psychiatric: Denies anxiety, Denies depression Endocrine: Denies fatigue, Denies weight change Physical Examination - Constitutional General appearance: no distress, obese - EENT Eyes: anicteric sclerae, EOMI, PERRLA, no ptosis, no scleral icterus, normal appearance ENT: hearing grossly normal, NA/AT, normal oropharynx, no thrush Ears: bilateral: normal - Neck Neck: no lymphadenopathy, normal ROM, no rigidity, no stridor, no thyromegaly Carotids: bilateral: upstroke normal Thyroid: bilateral: normal size - Respiratory Respiratory: bilateral: diminished, wheezing, prolonged expiration, negative: dullness, rales, rhonchi Frequent moist cough - Cardiovascular Rhythm: regular Heart sounds: normal: S1, S2 Abnormal Heart Sounds: no systolic murmur, no rub, no S3 Gallop, no S4 Gallop, no click - Gastrointestinal General gastrointestinal: normal bowel sounds, soft, lower abdominal generalized tenderness, no umbilical hernia, no ventral hernia, positive abdominal distention - Integumentary Integumentary: normal, normal turgor - Neurologic Neurologic: CNII-XII intact - Musculoskeletal Musculoskeletal: generalized weakness - Psychiatric Psychiatric: A&O x's 3, appropriate affect, intact judgment & insight - Labs CBC & Chem 7: 10/20/19 10:03 10/21/19 08:31 Labs: Abnormal Lab Results - Last 24 Hours (Table) 10/20/19 10/20/19 10/20/19 Range/Units 10:03 10:03 11:30 RBC 3.46 L (3.80-5.40) m/uL Hgb 9.9 L (11.4-16.0) gm/dL Hct 31.3 L (34.0-46.0) % Lymphocytes # 0.5 L (1.0-4.8) k/uL Potassium 3.0 L (3.5-5.1) mmol/L Glucose 135 H (74-99) mg/dL POC Glucose (mg/dL) 129 H (75-99) mg/dL Calcium 7.5 L (8.4-10.2) mg/dL 10/20/19 10/20/19 10/20/19 Range/Units 16:41 20:05 21:52 RBC (3.80-5.40) m/uL Hgb (11.4-16.0) gm/dL Hct (34.0-46.0) % Lymphocytes # (1.0-4.8) k/uL Potassium 3.4 L (3.5-5.1) mmol/L Glucose (74-99) mg/dL POC Glucose (mg/dL) 109 H 115 H (75-99) mg/dL Calcium (8.4-10.2) mg/dL 10/21/19 Range/Units 06:59 RBC (3.80-5.40) m/uL Hgb (11.4-16.0) gm/dL Hct (34.0-46.0) % Lymphocytes # (1.0-4.8) k/uL Potassium (3.5-5.1) mmol/L Glucose (74-99) mg/dL POC Glucose (mg/dL) 120 H (75-99) mg/dL Calcium (8.4-10.2) mg/dL Assessment and Plan Plan: 1. Acute diverticulitis. IV fluids decreased at 75 mL per hour. Continue current diet per general surgery. Increase activity. Continue current pain management, possible discharge tomorrow. 2. Pneumoperitoneum. Patient is scheduled for exploratory laparotomy with Dr. Ontiveros today. 3. Hypokalemia status post replacement. Continue to monitor 4. COPD without exacerbation. Continue albuterol nebulizer treatment as needed, DuoNeb treatment at bedtime, Symbicort 2 puffs twice daily. 5. Adrenal insufficiency disorder. Oral Cortef discontinued and patient placed on Solu-Cortef IV 50 mg every 12 hours. 6. History of Curtis granulomatosis. Continue steroids as above. 7. GERD. Continue Protonix 40 mg every day. 8. Hyperglycemia. CBG before meals and at bedtime, NovoLog scale. 9. Chronic tobacco use and dependence--patient quit July 2018. 10. Hypertension. Continue lisinopril 20 mg daily, hydrochlorothiazide 12.5 mg daily, IV hydralazine as needed. 11. Recurrent depression. Continue Cymbalta 20 mg daily DVT prophylaxis. Hep josette subcu 3 times daily. 12. COVID-19 infection not present. 13. GI prophylaxis. Continue patient on Protonix 40 mg orally once every day. 14. DVT Prophylaxis . Heparin 5000 units SC Q 8 H. Discharge plan: Home Impression and plan of care have been directed as dictated by the signing phys estevan. Lanette Mccarthy nurse practitioner acting as scribe for signing physician.
[2019-10-21] MEDS ORDERED: LACTATED RINGERS 1,000 ML IV ONE ×2 (10:30→14:29)
[2019-10-21 10:37] LABS: Glucose,Whole Blood 108 mg/dL (75-99)
[2019-10-21] MEDS ORDERED: FAMOTIDINE 20 MG/2 ML VIAL IVP ONE ×2 (10:39)
[2019-10-21] MEDS: SIMETHICONE 40 MG/0.6 ML DROPS 2,000 MG/30 ML BOTTLE PO SCH ×4 (10:58→21:42)
[2019-10-21] MEDS ORDERED: fentaNYL (PF) 50 MCG/ML 2 ML AMP ONE (11:53)
[2019-10-21] MEDS ORDERED: ROCURONIUM BROMIDE 10 MG/ML 5 ML VIAL IV ONE (11:53)
[2019-10-21] MEDS ORDERED: GLYCOPYRROLATE 0.2 MG/ML 2 ML VIAL ONE (11:53)
[2019-10-21] MEDS ORDERED: ONDANSETRON 4 MG/2 ML VIAL ONE (11:53)
[2019-10-21] MEDS ORDERED: LIDOCAINE 1% INJ 10MG/ML (20 ML MDV) ONE (11:53)
[2019-10-21] MEDS ORDERED: hydrALAZINE HCL 20 MG/ML 1 ML VIAL ONE (11:53)
[2019-10-21] MEDS ORDERED: HYDROCORTISONE SUCCINATE 100 MG/2 ML VIAL ONE (11:53)
[2019-10-21] MEDS ORDERED: SUCCINYLCHOLINE CHLORIDE 100 MG/5 ML SYR IV ONE (11:53)
[2019-10-21] MEDS ORDERED: HYDROmorphone (PF) 1 MG/ML ONE (11:53)
[2019-10-21] MEDS ORDERED: PROPOFOL 10 MG/ML 20 ML VIAL IV ONE (11:53)
[2019-10-21] MEDS ORDERED: NEOSTIGMINE 1 MG/ML 10 ML VIAL ONE (11:53)
[2019-10-21] MEDS ORDERED: METOPROLOL TARTRATE 5 MG/5 ML VIAL IVP ONE (11:53)
[2019-10-21] MEDS ORDERED: MIDAZOLAM 2 MG/2 ML VIAL ONE (11:53)
--- NOTE | 2019-10-21 15:03 | P.OP ---
Date of Procedure: 10/21/19 Preoperative Diagnosis: Pneumoperitoneum Diverticulitis Postoperative Diagnosis: Perforated diverticulitis Pneumoperitoneum Procedure(s) Performed: Exploratory laparotomy Matos's procedure Takedown of splenic flexure Anesthesia: ANAND Surgeon: Michelle Ontiveros Pathology: other (Culture of intra-abdominal fluid, pathology of sigmoid:) Condition: stable Disposition: floor Indications for Procedure: 59-year-old female initially presented to the hospital secondary to left lower quadrant abdominal pain. On workup, she was found to have on, acute diverticulitis. She was treated with medical management with antibiotics and did initially improved. Her symptoms had resolved and patient was requesting d ischarge, however was noted to have significant abdominal distention. Abdominal x-ray was performed and significant amount of pneumoperitoneum was noted. Concern was for ruptured diverticulitis. Due to the patient's history of Curtis's disease, patient has been on chronic steroids. Patient was likely to have masking of symptoms secondary to steroids. Plan was for operative intervention with exploratory laparotomy. Patient was explained the risks, benefits and alternatives to the procedure. She did understand the likelihood of a Matos's procedure, requiring end ostomy creation. She was agreeable to this plan. Operative Findings: Purulent intra-abdominal fluid Perforated diverticulum of the sigmoid colon Description of Procedure: Patient was brought into the operating suite and placed in supine position on the operating table. Sedation was provided by anesthesia and the patient underwent endotracheal intubation. The patient was then prepped and draped in regular sterile fashion and Murray catheter was placed under sterile conditions. Midline vertical incision was made and dissection was carried to the fascia using cautery. Due to the patient's obesity, significant depth of subcutaneous tissue was encountered. The fascia was incised and the fascial incision was extended along the length of the incision. Once the abdomen was entered, immediate purulent material was noted. Cultures were taken and this area was suctioned. A Bookwalter retractor was placed and the small bowel was packed into the right upper quadrant. The descending and sigmoid colon were then examined. The area of rupture was encountered in the sigmoid colon and significant amount of exudate and purulent material was noted. Dissection was carried to isolate a proximal and distal point of resection of the diseased sigmoid colon. Windows were created in the mesentery and a stapler device was used to resect the sigmoid colon. LigaSure was used to resect the sigmoid colon from its attached mesentery. Hemostasis was noted to be maintained. At this point, it was clear that the resulting end of the colon that would become the stoma would not reach the skin surface. The patient was noted to have approximately 5 cm of subcutaneous fatty tissue. Dissection was carried along the white line of Toldt and a takedown of the splenic flexure was performed. This portion of the procedure was tedious due to the patient's body habitus and did take approximately 1 hour. Appropriate amount of colon was noted after this dissection to reach the abdominal wall without any significant tension. At this point anticipated stoma site was noted on the left abdominal wall. A circular incision was made dissection was carried to the fascia. The fascia was incised in a cruciate manner and the muscle was split. The peritoneum was then incised and 2 fingers were noted to easily fit through the anticipated stoma site. The end of the colon was then placed through this site using a Clovis grasper and was noted to have appropriate fitting without any tension. At this point copious muss irrigation was then placed into the abdomen and suctioned. A JUAN JOSÉ drain was left in the pelvis and secured to the right side of the abdomen using a 2-0 nylon suture. The midline incision was closed in running fashion using a looped PDS suture. The ostomy was then matured in standard Rosario fashion. Sterile dressing was applied. The patient was awakened in the operating suite and taken to postanesthesia care unit in stable condition.
[2019-10-21] MEDS: HYDROmorphone 1 MG/ML 1 ML SYRINGE IVP ONE ×2 (15:38→15:44)
[2019-10-21] MEDS: ONDANSETRON 4 MG/2 ML VIAL IVP PRN (16:06)
[2019-10-21] MEDS: METOCLOPRAMIDE 5 MG/ML 2 ML VIAL IVP PRN (19:42)
[2019-10-21] MEDS: HYDROmorphone 1 MG/ML 1 ML SYRINGE IVP PRN ×2 (19:42→21:42)
[2019-10-21] MEDS: IPRATROPIUM-ALBUTEROL 3 ML NEB INHALATION SCH (20:02)
[2019-10-21 20:35] LABS: Glucose,Whole Blood 132 mg/dL (75-99)
[2019-10-22] MEDS: HYDROmorphone 1 MG/ML 1 ML SYRINGE IVP PRN ×8 (00:31→20:25)
[2019-10-22] MEDS: ONDANSETRON 4 MG/2 ML VIAL IVP PRN ×2 (00:35→08:15)
[2019-10-22] MEDS: HEPARIN SODIUM,PORCINE 5,000 UNIT/ML 1 ML VIAL SQ SCH ×3 (00:51→14:35)
[2019-10-22] MEDS: hydrALAZINE HCL 20 MG/ML 1 ML VIAL IVP PRN (01:50)
[2019-10-22] MEDS: METOCLOPRAMIDE 5 MG/ML 2 ML VIAL IVP PRN (05:15)
[2019-10-22] MEDS: AMPICILLIN-SULBACTAM 3 GM in SODIUM CHLORIDE 0.9% 100 ML IVPB SCH ×3 (05:15→17:48)
[2019-10-22 07:03] LABS: Glucose,Whole Blood 141 mg/dL (75-99)
[2019-10-22] MEDS: KETOROLAC 30 MG/ML 1 ML VIAL IVP SCH ×3 (07:17→17:48)
[2019-10-22] MEDS: SODIUM CHLORIDE 0.9% 1,000 ML IV SCH ×2 (07:19→15:15)
[2019-10-22] MEDS: INSULIN ASPART (NovoLOG) 100 UNIT/ML VIAL SQ SCH ×4 (07:19→21:46)
[2019-10-22] MEDS: CHOLECALCIFEROL 1,000 UNIT TAB PO SCH (07:21)
[2019-10-22] MEDS: CALCIUM CARB-VIT D 500MG-200UN 1 EACH TAB PO SCH (07:22)
[2019-10-22] MEDS: PANTOPRAZOLE 40 MG TABLET PO SCH (07:22)
[2019-10-22] MEDS: DULoxetine HCL 20 MG CAPSULE.DR PO SCH (07:23)
[2019-10-22] MEDS: lisinopriL 20 MG TAB PO SCH (07:23)
[2019-10-22] MEDS: HYDROCORTISONE SUCCINATE 100 MG/2 ML VIAL IV SCH ×2 (07:23→14:35)
[2019-10-22] MEDS: hydroCHLOROthiazide 12.5 MG CAP PO SCH (07:23)
[2019-10-22] MEDS: SIMETHICONE 40 MG/0.6 ML DROPS 2,000 MG/30 ML BOTTLE PO SCH (07:23)
[2019-10-22] MEDS: NON FORMULARY DRUG (Mirabegron [Myrbetriq] 50 MG) PO SCH (07:24)
--- NOTE | 2019-10-22 08:12 | P.PN ---
Subjective Progress Note Date: 10/22/19 Patient seen and examined at bedside. Complains of pain at surgical site. Denies any significant nausea or vomiting. Objective - Vital Signs Vital signs: Vital Signs Temp 97.4 F L 10/22/19 07:00 Pulse 113 H 10/22/19 07:00 Resp 18 10/22/19 07:00 BP 172/78 10/22/19 07:00 Pulse Ox 94 L 10/22/19 07:00 Intake & Output 10/21/19 10/22/19 10/22/19 18:59 06:59 18:59 Intake Total 1650 437.5 Output Total 1210 1140 Balance 440 -702.5 Intake: IV 1650 Intake, IV Titration 437.5 Amount Sodium Chloride 0.9% 1, 437.5 000 ml @ 125 mls/hr IV . Q8H [facility] Rx#:[id number] Output: Drainage 90 Abdomen 90 Urine 1060 1050 Estimated Blood Loss 150 Other: Voiding Method Toilet Indwelling Catheter - Constitutional General appearance: Present: cooperative, no acute distress - Respiratory Details: No difficulty with respiration - Gastrointestinal Gastrointestinal Comment(s): Soft, appropriate tenderness, nondistended, no rebound, no guarding, midline incision site with surgical dressing in place, ostomy with postoperative edema and no output at this time, JUAN JOSÉ drain in place with serosanguineous fluid - Musculoskeletal Musculoskeletal: Present: generalized weakness - Psychiatric Psychiatric: Present: A&O x's 3 - Labs CBC & Chem 7: 10/20/19 10:03 10/21/19 08:31 Labs: Abnormal Lab Results - Last 24 Hours (Table) 10/21/19 10/21/19 10/21/19 Range/Units 08:31 10:36 20:33 Potassium 3.2 L (3.5-5.1) mmol/L Glucose 102 H (74-99) mg/dL POC Glucose (mg/dL) 108 H 132 H (75-99) mg/dL Calcium 7.9 L (8.4-10.2) mg/dL 10/22/19 Range/Units 07:02 Potassium (3.5-5.1) mmol/L Glucose (74-99) mg/dL POC Glucose (mg/dL) 141 H (75-99) mg/dL Calcium (8.4-10.2) mg/dL Microbiology - Last 24 Hours (Table) 10/21/19 14:16 Anaerobic Culture - Preliminary Abdomen 10/21/19 14:16 Wound Culture - Preliminary Abdomen 10/21/19 14:16 Wound Culture - Preliminary Abdomen 10/21/19 14:16 Anaerobic Culture - Preliminary Abdomen Assessment and Plan (1) Diverticulitis Narrative/Plan: 59-year-old female postoperative day #1, exploratory laparotomy and Matos's procedure secondary to perforated diverticulitis - Ostomy nurse has been consulted for ostomy education - Continue IV antibiotics - Clear liquid diet - Pain control with narcotic pain medication and Toradol - Continue medical care for medical comorbidities. I discussed this in depth with the patient. There is significant concern about wound healing and postoperative infection secondary to the patient's history of chronic steroid use along with Rituxan use for Daniel's. She states that her last Rituxan dose was in April of this year. We will closely monitor the patient's progress with wound healing and for postoperative infection based on her clinical progress. - Will continue to follow and make recommendations based on the patient's clinical progress. Current Visit: Yes Status: Acute Code(s): K57.92 - DVTRCLI OF INTEST, PART UNSP, W/O PERF OR ABSCESS W/O BLEED SNOMED Code(s): 929952663
[2019-10-22 08:30] LABS: Basophils % (A) 0 %; Eosinophils # (A) 0.1 k/uL (0-0.7); Eosinophils % (A) 1 %; HCT 34.1 % (34.0-46.0); HGB 11.1 gm/dL (11.4-16.0); Lymphocytes # (A) 1.3 k/uL (1.0-4.8); Lymphocytes % (A) 13 %; MCH 29.2 pg (25.0-35.0); MCHC 32.5 g/dL (31.0-37.0); Mean Platelet Volume 6.7; Monocytes # (A) 0.5 k/uL (0-1.0); Monocytes % (A) 5 %; Neutrophils % (A) 81 %; Platelet Count 464 k/uL (150-450); RBC 3.79 m/uL (3.80-5.40); RDW 14.2 % (11.5-15.5)
[2019-10-22 08:40] LABS: ALT 32 U/L (4-34); AST 29 U/L (14-36); African American GFR (CKD) >90 (>60 ml/min/1.73 sqM); Albumin 2.9 g/dL (3.5-5.0); Alkaline Phosphatase 104 U/L (38-126); Anion Gap 8 mmol/L; Blood Urea Nitrogen 13 mg/dL (7-17); Calcium 7.5 mg/dL (8.4-10.2); Carbon Dioxide 28 mmol/L (22-30); Chloride 102 mmol/L (98-107); Glucose 125 mg/dL (74-99); Magnesium 1.8 mg/dL (1.6-2.3); Non-African American GFR(CKD) >90 (>60 ml/min/1.73 sqM); Sodium 138 mmol/L (137-145); Total Bilirubin 0.6 mg/dL (0.2-1.3)
[2019-10-22] MEDS: SYMBICORT 160-4.5 MCG INHALER INHALATION SCH ×2 (08:54→19:53)
[2019-10-22 11:32] LABS: Glucose,Whole Blood 128 mg/dL (75-99)
--- NOTE | 2019-10-22 12:51 | P.PN ---
Subjective Progress Note Date: 10/22/19 This is a 59-year-old female patient of Dr. Alvarez and Dr. Damico. with past medical history of diabetes mellitus type 2, Curtis granulomatosis, gastroesophageal reflux disease, hypertension. Patient presented to [facility] due to abdominal pain as well as diarrhea that it going on for 3 weeks. She has at least 1 loose stool daily. Yesterday she developed nausea and vomiting as well as lower abdominal pain. No fever or chills. No shortness of breath, chest pain, headache. Patient came into [facility] emergency center for evaluation and found to be afebrile, heart rate 90, blood pressure 153/81, pulse ox 94% on room air. WBC 14.7, hemoglobin 12.8, platelet count 385. Sodium 138, potassium 3.4, chloride 101, CO2 26, BUN 20 creatinine 0.94. Blood sugar 132. Lactic acid 1.5. Total bilirubin 0.5, AST 29, ALT 52, alkaline phosphatase 69. Lipase 1682. Urinalysis clear with nitrate and leukoesterase negative. CAT scan of the abdomen and pelvis with contrast revealed sigmoid diverticula with focal diverticulitis in the distal sigmoid colon. Normal appendix. Numerous nonobstructed bilateral renal calculi. Patient was given 1 L of IV fluids, Zofran, morphine with improvement of her pain and [facility] Consult with general surgery regarding diverticulitis. Patient is currently on clear liquid diet. COVID-19 testing in process. 10/17: Still complaining of increase pain in the abdomen today, there is no nausea or vomiting we will continue with IVF and we will change to add KCL , we will keep NPO , reevaluate in 24 hours, surgery consult appreciated, there is no chest pain or shortness of breath, no coughing, she has not had any bowel movements , she is passing gas. 10/18: Patient is laying down in bed she continues to have increased pain left lower quadrant, she continues to spit up some sputum, she has no chest pain or any shortness breath at this time, she has not had any bowel movement. She was started on clear liquid diet however she did not get anything yet beside water and ice, she seems clinically better she continues to be hypokalemic we will replace again. We will increase her IV fluids to 100 mL an hour. 10/19: Patient has been seen by Dr. Ontiveros this morning. She has had a few bowel movements in the past 24 hours. She states she has had no vomiting for greater than 24 hours since about 5:30 in the morning on Sunday which she relates to potassium. Her abdomen is still photographer with bloating but much improved. She states she slept okay during the night. Repeat potassium today is at 3 and will be replaced. Repeat potassium and magnesium level to be done at 7 PM. IV fluids decreased to 75 mL per hour. Patient has been afebrile, heart rate 88, blood pressure 170/91, pulse ox 96% on room air. A repeat blood work reveals hemoglobin 9.9, WBC 7.9. Blood sugars running between 129 and 134. Creatinine 0.7. Anticipate probable discharge tomorrow. 10/20: The patient was anticipating discharge home today but she still had abdominal distention. Urgent Abdominal x-ray was ordered which did show significant amount of abdominal distention. Patient was made nothing by mouth and Dr. Ontiveros was contacted by Dr. Alvarez regarding concerns for perforation. Patient has been scheduled for exploratory laparotomy for today. Patient has been afebrile, heart rate 89, blood pressure 172/104. A repeat blood work reveals sodium 137, potassium 3.2, chloride 104, CO2 27, BUN 13 and creatinine 0.67. 10/21: Yesterday, patient underwent exploratory laparotomy and Dong procedure for perforated diverticulitis pneumoperitoneum. The patient is currently on Unasyn. Incentive spirometry and KRYSTAL hose will be added. Patient has JUAN JOSÉ drain in place with blood-tinged serous drainage. She is complaining of significant pain and Dilaudid increased frequency to every 2 hours. She is on clear liquids. Murray catheter is in place. She has been afebrile, heart rate 104, blood pressure 173/91, pulse ox 97% on room air. Capillary blood glucose running between 108 - 141. Repeat blood work reveals WBC 10, hemoglobin 11.1, platelet count 464. Sodium 138, potassium 3.0, chloride 102, CO2 28, BUN 13, creatinine 0.71. Blood cultures are in progress. Objective - Vital Signs Vital signs: Vital Signs Temp 98.0 F 10/22/19 00:42 Pulse 104 H 10/22/19 00:42 Resp 18 07/28/20 16:31 BP 173/91 10/22/19 00:42 Pulse Ox 97 10/22/19 00:42 Intake & Output 10/21/19 10/22/19 10/22/19 18:59 06:59 18:59 Intake Total 1650 437.5 Output Total 1210 1140 Balance 440 -702.5 Intake: IV 1650 Intake, IV Titration 437.5 Amount Sodium Chloride 0.9% 1, 437.5 000 ml @ 125 mls/hr IV . Q8H [facility] Rx#:[id number] Output: Drainage 90 Abdomen 90 Urine 1060 1050 Estimated Blood Loss 150 Other: Voiding Method Toilet Indwelling Catheter - Exam Review of Systems Constitutional: Reports fatigue, Reports weakness, Denies chills, Denies fever Eyes: denies blurred vision, denies pain Ears, nose, mouth and throat: Denies headache, Denies nasal congestion, Denies nasal discharge, Denies sore throat, Denies vertigo Cardiovascular: Denies chest pain, Denies dyspnea on exertion, Denies leg edema, Denies shortness of breath, Denies syncope Respiratory: Denies cough, Denies cough with sputum, Denies dyspnea, Denies excessive sputum, Denies hemoptysis, Denies respiratory infections Gastrointestinal: Reports abdominal pain-improved, Reports change in bowel habits, Reports diarrhea, Reports loss of appetite, denies nausea, denies vomiting, Denies BRBPR, Denies hematemesis, Denies hematochezia, Denies melena, reports abdominal distention Genitourinary: Denies dysuria, Denies hematuria, Denies urgency, Denies urinary frequency Menstruation: Reports postmenopausal Musculoskeletal: Denies frequent falls, Denies gait dysfunction, Denies myalgias Integumentary: Denies pruritus, Denies rash, Denies wounds Neurological: Denies change in mentation, Denies change in speech, Denies gait dysfunction, Denies numbness, Denies seizures, Denies weakness Psychiatric: Denies anxiety, Denies depression Endocrine: Denies fatigue, Denies weight change Physical Examination - Constitutional General appearance: no distress, obese - EENT Eyes: anicteric sclerae, EOMI, PERRLA, no ptosis, no scleral icterus, normal appearance ENT: hearing grossly normal, NA/AT, normal oropharynx, no thrush Ears: bilateral: normal - Neck Neck: no lymphadenopathy, normal ROM, no rigidity, no stridor, no thyromegaly Carotids: bilateral: upstroke normal Thyroid: bilateral: normal size - Respiratory Respiratory: bilateral: diminished, wheezing, prolonged expiration, negative: dullness, rales, rhonchi Frequent moist cough - Cardiovascular Rhythm: regular Heart sounds: normal: S1, S2 Abnormal Heart Sounds: no systolic murmur, no rub, no S3 Gallop, no S4 Gallop, no click - Gastrointestinal General gastrointestinal: Hypoactive bowel sounds, soft, mild tenderness around surgical site. Ostomy in the left lower quadrant, dressing midline has dried blood with no active bleeding noted. JUAN JOSÉ drain with serosanguineous output. - Integumentary Integumentary: normal, normal turgor - Neurologic Neurologic: CNII-XII intact - Musculoskeletal Musculoskeletal: generalized weakness - Psychiatric Psychiatric: A&O x's 3, appropriate affect, intact judgment & insight - Labs CBC & Chem 7: 10/22/19 07:55 10/22/19 07:55 Labs: Abnormal Lab Results - Last 24 Hours (Table) 10/21/19 10/21/19 10/21/19 Range/Units 08:31 10:36 20:33 Potassium 3.2 L (3.5-5.1) mmol/L Glucose 102 H (74-99) mg/dL POC Glucose (mg/dL) 108 H 132 H (75-99) mg/dL Calcium 7.9 L (8.4-10.2) mg/dL 10/22/19 Range/Units 07:02 Potassium (3.5-5.1) mmol/L Glucose (74-99) mg/dL POC Glucose (mg/dL) 141 H (75-99) mg/dL Calcium (8.4-10.2) mg/dL Microbiology - Last 24 Hours (Table) 10/21/19 14:16 Anaerobic Culture - Preliminary Abdomen 10/21/19 14:16 Wound Culture - Preliminary Abdomen 10/21/19 14:16 Wound Culture - Preliminary Abdomen 10/21/19 14:16 Anaerobic Culture - Preliminary Abdomen Assessment and Plan Plan: 1. Acute diverticulitis. IV fluids decreased at 75 mL per hour. Continue current diet per general surgery. Increase activity. Continue current pain management, possible discharge tomorrow. 2. Pneumoperitoneum status post exploratory laparotomy and Dong procedure with Dr. Ontiveros. Continue Unasyn, increased frequency of Dilaudid 1 mg every 2 hours, Toradol as needed, Zofran for nausea. 3. Hypokalemia status post replacement. Continue to monitor and replace 4. COPD without exacerbation. Continue albuterol nebulizer treatment as needed, DuoNeb treatment at bedtime, Symbicort 2 puffs twice daily. 5. Adrenal insufficiency disorder. Oral Cortef discontinued and patient placed on Solu-Cortef IV increased to 100 mg every 8 hours. 6. History of Curtis granulomatosis. Continue steroids as above. 7. GERD. Continue Protonix 40 mg every day. 8. Hyperglycemia. CBG before meals and at bedtime, NovoLog scale. 9. Chronic tobacco use and dependence--patient quit July 2018. 10. Hypertension. Continue lisinopril 20 mg daily, discontinue hydrochlorothiazide 12.5 mg daily, IV hydralazine as needed. 11. Recurrent depression. Continue Cymbalta 20 mg daily 12. DVT prophylaxis. Heparin subcu 3 times daily. 13. COVID-19 infection not present. 14. GI prophylaxis. Continue patient on Protonix 40 mg orally once every day. 15. DVT Prophylaxis . Heparin 5000 units SC Q 8 H. Discharge plan: Home Impression and plan of care have been directed as dictated by the signing physician. Lanette Mccarthy nurse practitioner acting as scribe for signing physician.
[2019-10-22 16:41] LABS: Glucose,Whole Blood 135 mg/dL (75-99)
[2019-10-22] MEDS: IPRATROPIUM-ALBUTEROL 3 ML NEB INHALATION SCH (19:52)
[2019-10-22] MEDS ORDERED: prednisoLONE ACETATE 1% OPHTH DROPS 5 ML BTL BOTH EYES SCH (20:00)
[2019-10-22 20:12] VITALS: BMI 34.3
[2019-10-22 21:29] LABS: Glucose,Whole Blood 154 mg/dL (75-99)
[2019-10-22] MEDS: cycloSPORINE 0.05% OPHTH 0.4 ML DROPERETTE BOTH EYES SCH (21:47)
[2019-10-22] MEDS: LATANOPROST 0.005% OPHTH DROPS 2.5 ML BTL BOTH EYES SCH (21:47)
--- NOTE | 2019-10-22 23:30 | P.CONS ---
History of Present Illness - Reason for Consult Consult date: 10/22/19 Perforated diverticulitis Requesting physician: Connor Alvarez - Chief Complaint Abdominal pain x few days - History of Present Illness Patient is 59-year-old female presented to the ER at [facility] on 10/16/2019 with chief complaints of abdominal pain patient pain has been mostly lower abdominal area and was going on for a few days before she presented to hospital patient described the pain to be more of a dull aching at times sharpOsteomyelitis 7-8 out of 10 and no radiation patient did have associated fever with a temperature of 101F on admission also elevated white count of 14.7 patient did have a CT of abdominal pelvis that shows an 6 cm segment of sigmoid diverticulitis with no evidence of any perforation or an abscess patient has been treated with Unasyn yesterday the patient did have an acute abdominal series shows large pneumoperitoneum sequelae patient was taken to the OR status post laparotomy and diverting colostomy abdominal culture has been obtained which are currently pending patient has been continued on Unasyn and infectious disease was consulted this morning for further management of antibiotic therapy Review of Systems Positive point has been mentioned in the HPI rest of the systems are negative Past Medical History Past Medical History: Diabetes Mellitus, GERD/Reflux, Hypertension, Myocardial Infarction (CT), Respiratory Disorder Additional Past Medical History / Comment(s): Hx. of Curtis's. Chemo for Wegeners, endometriosis, ovarian cysts, STATES SILENT CT 2015 AND BORDERLINE DM DUE TO CHRONIC PREDNISONE USE. Last Myocardial Infarction Date:: 2015 History of Any Multi-Drug Resistant Organisms: C-DIFF Year Discovered:: 2014 MDRO Source:: Stool Past Surgical History: Section Additional Past Surgical History / Comment(s): Right lung resection 2016, L susan merus double compound fx repair, colonoscopy, Hemorrhoidectomy. Past Anesthesia/Blood Transfusion Reactions: No Reported Reaction Past Psychological History: No Psychological Hx Reported Smoking Status: Former smoker Past Alcohol Use History: None Reported Additional Past Alcohol Use History / Comment(s): Patient was a smoker one pack per day for 30 years and quit in July 2018. No alcohol use, no marijuana or street drug use. Past Drug Use History: None Reported - Past Family History Mother Family Medical History: Coronary Artery Disease (CAD) Additional Family Medical History / Comment(s): Mother at age 78 with history of coronary artery disease status post multiple stents. Father Family Medical History: Myocardial Infarction (CT) Additional Family Medical History / Comment(s): Father at age 45 from myocardial infarction. Brother(s) Family Medical History: Hypertension Additional Family Medical History / Comment(s): Patient has 1 brother with hypertension and kidney stones. Sister(s) Family Medical History: No Reported History Additional Family Medical History / Comment(s): Patient has one sister with CHRONIC HYPERCOHDRIA AND GALLSTONES Daughter(s) Family Medical History: No Reported History Additional Family Medical History / Comment(s): Patient has 2 daughters with no major medical problems. Medications and Allergies Home Medications Medication Instructions Recorded Confirmed Type Pantoprazole Sodium [Protonix] 40 mg PO DAILY 08/22/18 10/16/19 History Calcium Carbonate/Vitamin D3 1 tab PO BID 01/05/19 10/16/19 History [Calcium 600-Vit D3 200 Tablet] Hydrocortisone 25 mg PO DAILY 06/06/19 10/16/19 History Hydrocortisone [Cortef] 15 mg PO DAILY@1500 06/06/19 10/16/19 History Budesonide-Formot 160-4.5 Mcg 2 puff INHALATION RT-BID 06/09/19 10/16/19 History [Symbicort 160-4.5 Mcg Inhaler] Albuterol Sulfate [Ventolin HFA] 2 puff INHALATION RT-Q4H PRN 10/16/19 10/16/19 History Amoxicillin/Potassium Clav 1 tab PO Q12HR #20 tab 10/16/19 Rx [Augmentin 875-125 Tablet] Cholecalciferol [Vitamin D3 (25 5,000 unit PO DAILY 10/16/19 10/16/19 History Mcg = 1000 Iu)] DULoxetine HCL [Cymbalta] 20 mg PO DAILY 10/16/19 10/16/19 History Hydrochlorothiazide 12.5 mg PO DAILY 10/16/19 10/16/19 History [hydroCHLOROthiazide] Ibuprofen 600 mg PO TID 10/16/19 10/16/19 History Ipratropium-Albuterol Nebulize 3 ml INHALATION RT-HS 10/16/19 10/16/19 History [Duoneb 0.5 mg-3 mg/3 ml Soln] Mirabegron [Myrbetriq] 50 mg PO DAILY 10/16/19 10/16/19 History Nature's Plus Ultra Juice Greens 1 tab PO BID 10/16/19 10/16/19 History Ondansetron HCl [Zofran] 4 mg PO BID PRN 10/16/19 10/16/19 History Ondansetron [Zofran ODT] 4 mg PO Q8HR PRN #15 tab 10/16/19 Rx lisinopriL 20 mg PO DAILY 10/16/19 10/16/19 History Allergies Allergy/AdvReac Type Severity Reaction Status Date / Time azathioprine [From Imuran] Allergy Vomiting Verified 10/21/19 10:32 codeine Allergy Nausea Verified 10/21/19 10:32 metronidazole [From Flagyl] Allergy Anaphylaxis Verified 10/21/19 10:32 methotrexate AdvReac Unknown Verified 10/21/19 10:32 Physical Exam Vitals: Vital Signs Temp Pulse Resp BP Pulse Ox 10/22/19 07:00 97.4 F L 113 H 18 172/78 94 L 10/22/19 00:42 98.0 F 104 H 173/91 97 10/21/19 18:30 98.0 F 90 164/84 97 10/21/19 18:15 89 172/82 96 10/21/19 18:00 90 169/89 97 10/21/19 17:45 88 172/82 97 10/21/19 17:30 85 171/83 96 10/21/19 17:15 90 164/84 97 10/21/19 17:00 93 169/89 96 10/21/19 16:31 90 18 127/60 97 10/21/19 16:16 92 18 139/60 97 10/21/19 16:01 89 18 141/63 98 10/21/19 15:46 98 18 198/84 98 10/21/19 15:26 96.8 F L 95 16 212/88 98 Intake and Output 10/21/19 10/22/19 10/22/19 22:59 06:59 14:59 Intake Total 737.5 200 Output Total 250 1090 50 Balance 487.5 -1090 150 Intake: IV 300 Intake, IV Titration 437.5 Amount Sodium Chloride 0.9% 1, 437.5 000 ml @ 125 mls/hr IV . Q8H [facility] Rx#:[id number] Oral 200 Output: Drainage 50 40 50 Abdomen 50 40 50 Urine 200 1050 Other: Voiding Method Indwelling Catheter Indwelling Catheter GENERAL DESCRIPTION: Middle-aged female lying in bed, no distress. No tachypnea or accessory muscle of respiration use. HEENT: Shows Pallor , no scleral icterus. Oral mucous membrane is dry. No pharyngeal erythema or thrush NECK: Trachea central, no thyromegaly. LUNGS: Unlabored breathing. Clear to auscultation anteriorly. No wheeze or crackle. HEART: S1, S2, regular rate and rhythm. No loud murmur ABDOMEN: Soft, mild tenderness , guarding or rigidity, no organomegaly EXTREMITIES: No edema of feet. SKIN: No rash, no masses palpable. NEUROLOGICAL: The patient is awake, alert, oriented x3, mood and affect normal. Results CBC & Chem 7: 10/22/19 07:55 10/22/19 07:55 Labs: Abnormal Lab Results - Last 24 Hours (Table) 10/21/19 10/22/19 10/22/19 Range/Units 20:33 07:02 07:55 RBC 3.79 L (3.80-5.40) m/uL Hgb 11.1 L (11.4-16.0) gm/dL Plt Count 464 H (150-450) k/uL Neutrophils # 8.0 H (1.3-7.7) k/uL Potassium (3.5-5.1) mmol/L Glucose (74-99) mg/dL POC Glucose (mg/dL) 132 H 141 H (75-99) mg/dL Calcium (8.4-10.2) mg/dL Total Protein (6.3-8.2) g/dL Albumin (3.5-5.0) g/dL 10/22/19 10/22/19 Range/Units 07:55 11:31 RBC (3.80-5.40) m/uL Hgb (11.4-16.0) gm/dL Plt Count (150-450) k/uL Neutrophils # (1.3-7.7) k/uL Potassium 3.0 L (3.5-5.1) mmol/L Glucose 125 H (74-99) mg/dL POC Glucose (mg/dL) 128 H (75-99) mg/dL Calcium 7.5 L (8.4-10.2) mg/dL Total Protein 5.0 L (6.3-8.2) g/dL Albumin 2.9 L (3.5-5.0) g/dL Microbiology - Last 24 Hours (Table) 10/21/19 14:16 Gram Stain - Preliminary Abdomen Wound Culture - Preliminary 10/21/19 14:16 Gram Stain - Preliminary Abdomen Wound Culture - Preliminary 10/21/19 14:16 Anaerobic Culture - Preliminary Abdomen 10/21/19 14:16 Anaerobic Culture - Preliminary Abdomen Assessment and Plan Assessment: 1- patient presented to hospital with sepsis in this patient did have a fever and elevated white count source was acute sigmoid diverticulitis that apparently has failed to respond to medical therapy with perforation status post nephrectomy and diabetic colostomy likely pathogen need to cover the enteric gram-negative both aerobes and anaerobes 2- Patient with multiple antibiotic ALLERGIES that would limit the number of antibiotic safe to use (1) Sepsis Current Visit: Yes Status: Acute Code(s): A41.9 - SEPSIS, UNSPECIFIED ORGANISM SNOMED Code(s): 36438614 (2) Perforation of cecum due to diverticulitis Current Visit: Yes Status: Acute Code(s): K57.20 - DVTRCLI OF LG INT W PERF ORATION AND ABSCESS W/O BLEEDING SNOMED Code(s): 0306225371024671 Plan: 1- discontinue Unasyn 3 g every 6 hours 2- start the patient on Zosyn 3.375 g every 8 hours 3- gentle IV fluid We will follow on clinical condition and cultures to further adjust medication if needed Thank you for this consultation will follow this patient with you
[2019-10-23] MEDS: HYDROmorphone 1 MG/ML 1 ML SYRINGE IVP PRN ×7 (00:46→20:44)
[2019-10-23] MEDS: PIPERACILLIN-TAZOBACTAM 3.375 GM in SODIUM CHLORIDE 0.9% 100 ML IVPB SCH ×4 (00:46→23:36)
[2019-10-23] MEDS: HYDROCORTISONE SUCCINATE 100 MG/2 ML VIAL IV SCH ×4 (00:47→23:36)
[2019-10-23] MEDS: KETOROLAC 30 MG/ML 1 ML VIAL IVP SCH ×5 (00:47→23:36)
[2019-10-23] MEDS: HEPARIN SODIUM,PORCINE 5,000 UNIT/ML 1 ML VIAL SQ SCH ×4 (00:47→23:36)
[2019-10-23] MEDS: SODIUM CHLORIDE 0.9% 1,000 ML IV SCH ×3 (00:48→21:56)
[2019-10-23] MEDS: METOCLOPRAMIDE 5 MG/ML 2 ML VIAL IVP PRN (06:06)
[2019-10-23 06:56] LABS: Glucose,Whole Blood 132 mg/dL (75-99)
[2019-10-23] MEDS: INSULIN ASPART (NovoLOG) 100 UNIT/ML VIAL SQ SCH ×5 (07:17→20:33)
[2019-10-23 07:29] LABS: ALT 32 U/L (4-34); AST 28 U/L (14-36); African American GFR (CKD) >90 (>60 ml/min/1.73 sqM); Albumin 2.7 g/dL (3.5-5.0); Alkaline Phosphatase 100 U/L (38-126); Anion Gap 6 mmol/L; Blood Urea Nitrogen 11 mg/dL (7-17); Calcium 7.4 mg/dL (8.4-10.2); Carbon Dioxide 30 mmol/L (22-30); Chloride 101 mmol/L (98-107); Glucose 118 mg/dL (74-99); Non-African American GFR(CKD) >90 (>60 ml/min/1.73 sqM); Sodium 137 mmol/L (137-145); Total Bilirubin 0.5 mg/dL (0.2-1.3); Total Protein 4.8 g/dL (6.3-8.2)
[2019-10-23 07:34] LABS: Potassium 2.6 mmol/L (3.5-5.1)
[2019-10-23] MEDS ORDERED: Potassium Replacement Protocol 1 EACH MISC MISCELLANE PRN ×3 (07:34→23:29)
[2019-10-23 07:36] LABS: HCT 29.2 % (34.0-46.0); MCH 29.4 pg (25.0-35.0); MCHC 32.7 g/dL (31.0-37.0); MCV 90.1 fL (80.0-100.0); Mean Platelet Volume 6.8; Platelet Count 460 k/uL (150-450); RBC 3.24 m/uL (3.80-5.40); RDW 14.1 % (11.5-15.5); WBC 10.9 k/uL (3.8-10.6)
[2019-10-23 07:39] LABS: HGB 9.6 gm/dL (11.4-16.0)
[2019-10-23] MEDS: POTASSIUM CHLORIDE ER 20 MEQ TAB.ER PO SCH ×8 (08:00→23:36)
[2019-10-23] MEDS: SYMBICORT 160-4.5 MCG INHALER INHALATION SCH ×2 (08:02→20:21)
[2019-10-23] MEDS: POTASSIUM CHLORIDE 20 MEQ in WATER FOR INJECTION 1 100ML.BAG IVPB SCH ×2 (09:10→11:44)
[2019-10-23] MEDS: cycloSPORINE 0.05% OPHTH 0.4 ML DROPERETTE BOTH EYES SCH ×2 (09:13→20:34)
[2019-10-23] MEDS: lisinopriL 20 MG TAB PO SCH (09:15)
[2019-10-23] MEDS: PANTOPRAZOLE 40 MG TABLET PO SCH (09:15)
[2019-10-23] MEDS: DULoxetine HCL 20 MG CAPSULE.DR PO SCH (09:15)
[2019-10-23] MEDS: prednisoLONE ACETATE 1% OPHTH DROPS 5 ML BTL BOTH EYES SCH (09:18)
[2019-10-23] MEDS ORDERED: POTASSIUM CHLORIDE ER 20 MEQ TAB.ER PO STA (11:06)
--- NOTE | 2019-10-23 11:40 | P.PN ---
Subjective Progress Note Date: 10/23/19 This is a 59-year-old female patient of Dr. Alvarez and Dr. Damico. with past medical history of diabetes mellitus type 2, Curtis granulomatosis, gastroesophageal reflux disease, hypertension. Patient presented to [facility] due to abdominal pain as well as diarrhea that it going on for 3 weeks. She has at least 1 loose stool daily. Yesterday she developed nausea and vomiting as well as lower abdominal pain. No fever or chills. No shortness of breath, chest pain, headache. Patient came into [facility] emergency center for evaluation and found to be afebrile, heart rate 90, blood pressure 153/81, pulse ox 94% on room air. WBC 14.7, hemoglobin 12.8, platelet count 385. Sodium 138, potassium 3.4, chloride 101, CO2 26, BUN 20 creatinine 0.94. Blood sugar 132. Lactic acid 1.5. Total bilirubin 0.5, AST 29, ALT 52, alkaline phosphatase 69. Lipase 1682. Urinalysis clear with nitrate and leukoesterase negative. CAT scan of the abdomen and pelvis with contrast revealed sigmoid diverticula with focal diverticulitis in the distal sigmoid colon. Normal appendix. Numerous nonobstructed bilateral renal calculi. Patient was given 1 L of IV fluids, Zofran, morphine with improvement of her pain and [facility]. Consult with general surgery regarding diverticulitis. Patient is currently on clear liquid diet. COVID-19 testing in process. 10/17: Still complaining of increase pain in the abdomen today, there is no nausea or vomiting we will continue with IVF and we will change to add KCL , we will keep NPO , reevaluate in 24 hours, surgery consult appreciated, there is no chest pain or shortness of breath, no coughing, she has not had any bowel movements , she is passing gas. 10/18: Patient is laying down in bed she continues to have increased pain left lower quadrant, she continues to spit up some sputum, she has no chest pain or any shortness breath at this time, she has not had any bowel movement. She was started on clear liquid diet however she did not get anything yet beside water and ice, she seems clinically better she continues to be hypokalemic we will replace again. We will increase her IV fluids to 100 mL an hour. 10/19: Patient has been seen by Dr. Ontiveros this morning. She has had a few bowel movements in the past 24 hours. She states she has had no vomiting for greater than 24 hours since about 5:30 in the morning on Sunday which she relates to potassium. Her abdomen is chuck tender with bloating but much improved. She states she slept okay during the night. Repeat potassium today is at 3 and will be replaced. Repeat potassium and magnesium level to be done at 7 PM. IV fluids decreased to 75 mL per hour. Patient has been afebrile, heart rate 88, blood pressure 170/91, pulse ox 96% on room air. A repeat blood work reveals hemoglobin 9.9, WBC 7.9. Blood sugars running between 129 and 134. Creatinine 0.7. Anticipate probable discharge tomorrow. 10/20: The patient was anticipating discharge home today but she still had abdominal distention. Urgent Abdominal x-ray was ordered which did show significant amount of abdominal distention. Patient was made nothing by mouth and Dr. Ontiveros was contacted by Dr. Alvarez regarding concerns for perforation. Patient has been scheduled for exploratory laparotomy for today. Patient has been afebrile, heart rate 89, blood pressure 172/104. A repeat blood work reveals sodium 137, potassium 3.2, chloride 104, CO2 27, BUN 13 and creatinine 0.67. 10/21: Yesterday, patient underwent exploratory laparotomy and Dong procedure for perforated diverticulitis pneumoperitoneum. The patient is currently on Unasyn. Incentive spirometry and KRYSTAL hose will be added. Patient has JUAN JOSÉ drain in place with blood-tinged serous drainage. She is complaining of significant pain and Dilaudid increased frequency to every 2 hours. She is on clear liquids. Murray catheter is in place. She has been afebrile, heart rate 104, blood pressure 173/91, pulse ox 97% on room air. Capillary blood glucose running between 108 - 141. Repeat blood work reveals WBC 10, hemoglobin 11.1, platelet count 464. Sodium 138, potassium 3.0, chloride 102, CO2 28, BUN 13, creatinine 0.71. Blood cultures are in progress. 10/22: The patient was seen by Dr. Stone and antibiotics changed to Zosyn. Wound cultures gram-negative bacilli. Patient was seen by Dorie Thomas yesterday for ostomy teaching. She is currently on clear liquid diet. Pain has been mostly 78 through the night. She does complain of some right-sided abdominal pain that is new over the last half hour. She complains of nausea and also lower extremity edema. Murray cath remains in place with good output. She has been afebrile, heart rate 104, blood pressure 173/79, pulse ox 95% on room air. Blood sugars running between 130s to 154. Potassium is 2.6 and being replaced and recheck potassium in the evening. WBC 10.9, hemoglobin 9.6. Solu-Cortef decrease to 50 mg IV every 8 hours. Objective - Vital Signs Vital signs: Vital Signs Temp 98.3 F 10/23/19 01:34 Pulse 104 H 10/23/19 01:34 Resp 18 10/22/19 15:00 BP 173/79 10/23/19 01:34 Pulse Ox 95 10/23/19 01:34 Intake & Output 10/22/19 10/23/19 10/23/19 18:59 06:59 18:59 Intake Total 200 Output Total 1470 1390 Balance -1270 -1390 Weight 79.832 kg Intake: Oral 200 Output: Drainage 170 190 Abdomen 170 190 Urine 1300 1200 Other: Voiding Method Indwelling Catheter Indwelling Catheter - Exam Review of Systems Constitutional: Reports fatigue, Reports weakness, Denies chills, Denies fever Eyes: denies blurred vision, denies pain Ears, nose, mouth and throat: Denies headache, Denies nasal congestion, Denies nasal discharge, Denies sore throat, Denies vertigo Cardiovascular: Denies chest pain, Denies dyspnea on exertion, Denies leg edema, Denies shortness of breath, Denies syncope Respiratory: Denies cough, Denies cough with sputum, Denies dyspnea, Denies excessive sputum, Denies hemoptysis, Denies respiratory infections Gastrointestinal: Reports abdominal pain-improved, Reports change in bowel habits, denies diarrhea, Reports loss of appetite, reports nausea, denies vomiting, Denies BRBPR, Denies hematemesis, Denies hematochezia, Denies melena, reports abdominal discomfort Genitourinary: Denies dysuria, Denies hematuria, Denies urgency, Denies urinary frequency Menstruation: Reports postmenopausal Musculoskeletal: Denies frequent falls, Denies gait dysfunction, Denies myalgias Integumentary: Denies pruritus, Denies rash, Denies wounds Neurological: Denies change in mentation, Denies change in speech, Denies gait dysfunction, Denies numbness, Denies seizures, Denies weakness Psychiatric: Denies anxiety, Denies depression Endocrine: Denies fatigue, Denies weight change Physical Examination - Constitutional General appearance: no distress, obese - EENT Eyes: anicteric sclerae, EOMI, PERRLA, no ptosis, no scleral icterus, normal appearance ENT: hearing grossly normal, NA/AT, normal oropharynx, no thrush Ears: bilateral: normal - Neck Neck: no lymphadenopathy, normal ROM, no rigidity, no stridor, no thyromegaly Carotids: bilateral: upstroke normal Thyroid: bilateral: normal size - Respiratory Respiratory: bilateral: diminished, wheezing, prolonged expiration, negative: dullness, rales, rhonchi Frequent moist cough - Cardiovascular Rhythm: regular Heart sounds: normal: S1, S2 Abnormal Heart Sounds: no systolic murmur, no rub, no S3 Gallop, no S4 Gallop, no click - Gastrointestinal General gastrointestinal: Hypoactive bowel sounds, soft, mild tenderness around surgical site. Ostomy in the left lower quadrant, dressing midline has dried blood with no active bleeding noted. JUAN JOSÉ drain with serosanguineous output. Murray catheter draining clear jeanmarie urine. - Integumentary Integumentary: normal, normal turgor - Neurologic Neurologic: CNII-XII intact - Musculoskeletal Musculoskeletal: generalized weakness - Psychiatric Psychiatric: A&O x's 3, appropriate affect, intact judgment & insight - Labs CBC & Chem 7: 10/23/19 06:36 10/23/19 06:36 Labs: Abnormal Lab Results - Last 24 Hours (Table) 10/22/19 10/22/19 10/22/19 Range/Units 07:55 07:55 11:31 RBC 3.79 L (3.80-5.40) m/uL Hgb 11.1 L (11.4-16.0) gm/dL Plt Count 464 H (150-450) k/uL Neutrophils # 8.0 H (1.3-7.7) k/uL Potassium 3.0 L (3.5-5.1) mmol/L Glucose 125 H (74-99) mg/dL POC Glucose (mg/dL) 128 H (75-99) mg/dL Calcium 7.5 L (8.4-10.2) mg/dL Total Protein 5.0 L (6.3-8.2) g/dL Albumin 2.9 L (3.5-5.0) g/dL 10/22/19 10/22/19 10/23/19 Range/Units 16:40 21:24 06:54 RBC (3.80-5.40) m/uL Hgb (11.4-16.0) gm/dL Plt Count (150-450) k/uL Neutrophils # (1.3-7.7) k/uL Potassium (3.5-5.1) mmol/L Glucose (74-99) mg/dL POC Glucose (mg/dL) 135 H 154 H 132 H (75-99) mg/dL Calcium (8.4-10.2) mg/dL Total Protein (6.3-8.2) g/dL Albumin (3.5-5.0) g/dL Microbiology - Last 24 Hours (Table) 10/21/19 14:16 Gram Stain - Preliminary Abdomen Wound Culture - Preliminary Gram Neg Bacilli 10/21/19 14:16 Gram Stain - Preliminary Abdomen Wound Culture - Preliminary Gram Neg Bacilli Assessment and Plan Plan: 1. Acute diverticulitis. IV fluids 75 mL per hour. Continue current diet of clear liquids per general surgery. Continue current pain management. Zofran for nausea and vomiting, IV Dilaudid for pain control, Reglan as needed. 2. Pneumoperitoneum and acute peritonitis secondary to perforated diverticulitis status post exploratory laparotomy and Dong procedure with Dr. Ontiveros. Continue Zosyn, Dilaudid 1 mg every 2 hours, Toradol as needed, Zofran for nausea. Reglan as needed. 3. Hypokalemia status post replacement. Continue to monitor and replace. 4. COPD without exacerbation. Continue albuterol nebulizer treatment as needed, DuoNeb treatment at bedtime, Symbicort 2 puffs twice daily. 5. Adrenal insufficiency disorder. Oral Cortef discontinued and patient placed on Solu-Cortef IV decreased to 50 mg every 8 hours. 6. History of Curtis granulomatosis. Continue steroids as above. 7. GERD. Continue Protonix 40 mg every day. 8. Hyperglycemia. CBG before meals and at bedtime, NovoLog scale. 9. Chronic tobacco use and dependence--patient quit July 2018. 10. Hypertension. Continue lisinopril 20 mg daily, discontinue hydrochlorothiazide 12.5 mg daily, IV hydralazine as needed. 11. Recurrent depression. Continue Cymbalta 20 mg daily 12. DVT prophylaxis. Heparin subcu 3 times daily. 13. COVID-19 infection not present. 14. GI prophylaxis. Continue patient on Protonix 40 mg orally once every day. 15. DVT Prophylaxis . Heparin 5000 units SC Q 8 H. Discharge plan: Home Impression and plan of care have been directed as dictated by the signing physician. Lanette Mccarthy nurse practitioner acting as scribe for signing physician.
[2019-10-23 11:56] LABS: Glucose,Whole Blood 138 mg/dL (75-99)
[2019-10-23] MEDS ORDERED: POTASSIUM CHLORIDE ER 20 MEQ TAB.ER PO ONE (12:08)
--- NOTE | 2019-10-23 13:24 | P.PN ---
Subjective Progress Note Date: 10/23/19 Patient seen and examined at bedside. Complaining of abdominal pain around the incision. States she has felt flatus from the ostomy site. Sitting up and tolerating clear liquid diet during exam. Denies nausea or vomiting. Objective - Vital Signs Vital signs: Vital Signs Temp 97.8 F 10/23/19 08:05 Pulse 85 10/23/19 08:05 Resp 18 10/23/19 08:05 BP 156/72 10/23/19 08:05 Pulse Ox 92 L 10/23/19 08:05 Intake & Output 10/22/19 10/23/19 10/23/19 18:59 06:59 18:59 Intake Total 200 Output Total 1470 1390 40 Balance -1270 -1390 -40 Weight 79.832 kg Intake: Oral 200 Output: Drainage 170 190 40 Abdomen 170 190 40 Urine 1300 1200 Other: Voiding Method Indwelling Catheter Indwelling Catheter Indwelling Catheter # Voids 1 - Constitutional General appearance: Present: cooperative, no acute distress - Respiratory Details: No difficulty with respiration - Gastrointestinal Gastrointestinal Comment(s): Soft, appropriate tenderness, nondistended, no rebound, no guarding, ostomy site is patent with some mild blood-tinged output, JUAN JOSÉ drain in place with serosanguineous output - Musculoskeletal Musculoskeletal: Present: generalized weakness - Psychiatric Psychiatric: Present: A&O x's 3 - Labs CBC & Chem 7: 10/23/19 06:36 10/23/19 06:36 Labs: Abnormal Lab Results - Last 24 Hours (Table) 10/22/19 10/22/19 10/23/19 Range/Units 16:40 21:24 06:36 WBC 10.9 H (3.8-10.6) k/uL RBC 3.24 L (3.80-5.40) m/uL Hgb 9.6 L D (11.4-16.0) gm/dL Hct 29.2 L (34.0-46.0) % Plt Count 460 H (150-450) k/uL Potassium (3.5-5.1) mmol/L Glucose (74-99) mg/dL POC Glucose (mg/dL) 135 H 154 H (75-99) mg/dL Calcium (8.4-10.2) mg/dL Total Protein (6.3-8.2) g/dL Albumin (3.5-5.0) g/dL 10/23/19 10/23/19 10/23/19 Range/Units 06:36 06:54 11:50 WBC (3.8-10.6) k/uL RBC (3.80-5.40) m/uL Hgb (11.4-16.0) gm/dL Hct (34.0-46.0) % Plt Count (150-450) k/uL Potassium 2.6 L* (3.5-5.1) mmol/L Glucose 118 H (74-99) mg/dL POC Glucose (mg/dL) 132 H 138 H (75-99) mg/dL Calcium 7.4 L (8.4-10.2) mg/dL Total Protein 4.8 L (6.3-8.2) g/dL Albumin 2.7 L (3.5-5.0) g/dL Microbiology - Last 24 Hours (Table) 10/21/19 14:16 Gram Stain - Preliminary Abdomen Wound Culture - Preliminary Gram Neg Bacilli 10/21/19 14:16 Gram Stain - Preliminary Abdomen Wound Culture - Preliminary Gram Neg Bacilli Assessment and Plan (1) Diverticulitis Narrative/Plan: 59-year-old female postoperative day #2, exploratory laparotomy and Matos's procedure secondary to perforated diverticulitis - Ostomy nurse has been consulted for ostomy education, she has met with the patient - Continue IV antibiotics, ID has been consultation. Appreciate recommendations - Continue Clear liquid diet - Pain control with narcotic pain medication and Toradol - Discontinue urinary Murray catheter - Increase activity - Continue medical care for medical comorbidities. I discussed this in depth with the patient. There is significant concern about wound healing and postoperative infection secondary to the patient's history of chronic steroid use along with Rituxan use for Daniel's. She states that her last Rituxan dose was in April of this year. We will closely monitor the patient's progress with wound healing and for postoperative infection based on her clinical p rogress. - Will continue to follow and make recommendations based on the patient's clinical progress. Current Visit: Yes Status: Acute Code(s): K57.92 - DVTRCLI OF INTEST, PART UNSP, W/O PERF OR ABSCESS W/O BLEED SNOMED Code(s): 898278424
[2019-10-23 17:01] LABS: Glucose,Whole Blood 115 mg/dL (75-99)
--- NOTE | 2019-10-23 17:30 | PN ---
PROGRESS NOTE DATE OF SERVICE: 10/23/2019 REASON FOR FOLLOWUP: Secondary peritonitis from perforated sigmoid diverticulitis. INTERVAL HISTORY: The patient is currently afebrile. The patient is breathing comfortably. Has been complaining of some abdominal pain, mostly on the right lower side, with some nausea but no vomiting. No chest pain, shortness of breath or cough. PHYSICAL EXAMINATION: Blood pressure is 188/93 with a pulse of 92, temperature 98. She is 92% on room air. General description is a middle-aged female up in the bed in no distress. RESPIRATORY SYSTEM: Unlabored breathing. Clear to auscultation anteriorly. HEART: S1, S2. Regular rate and rhythm. ABDOMEN: Soft. Mildly tender. No guarding or rigidity. LABS: Hemoglobin is 9.6, white count 10.9, creatinine 0.67. Abdominal culture showing Gram- negative bacilli. DIAGNOSTIC IMPRESSION AND PLAN: Patient with an abdominal abscess from a perforated sigmoid diverticulitis, status post diverting colostomy and drainage of the abscess. Cultures growing Gram-negative. Patient is covered with Zosyn. Cultures will be followed closely and will adjust antibiotics further if needed. MMODL / IJN: [id number] /
[2019-10-23] MEDS: SIMETHICONE 40 MG/0.6 ML DROPS 2,000 MG/30 ML BOTTLE PO SCH ×2 (18:04→20:34)
[2019-10-23] MEDS: IPRATROPIUM-ALBUTEROL 3 ML NEB INHALATION SCH (20:22)
[2019-10-23 20:29] LABS: Glucose,Whole Blood 166 mg/dL (75-99)
[2019-10-23] MEDS: LATANOPROST 0.005% OPHTH DROPS 2.5 ML BTL BOTH EYES SCH (20:34)
[2019-10-24] MEDS: POTASSIUM CHLORIDE ER 20 MEQ TAB.ER PO SCH (00:59)
[2019-10-24] MEDS: HYDROmorphone 1 MG/ML 1 ML SYRINGE IVP PRN ×2 (02:56→21:12)
[2019-10-24] MEDS: KETOROLAC 30 MG/ML 1 ML VIAL IVP SCH ×4 (05:54→23:20)
[2019-10-24] MEDS: INSULIN ASPART (NovoLOG) 100 UNIT/ML VIAL SQ SCH ×4 (07:09→21:05)
[2019-10-24 07:10] LABS: Glucose,Whole Blood 118 mg/dL (75-99)
[2019-10-24] MEDS: HEPARIN SODIUM,PORCINE 5,000 UNIT/ML 1 ML VIAL SQ SCH ×3 (07:11→23:20)
[2019-10-24] MEDS: PIPERACILLIN-TAZOBACTAM 3.375 GM in SODIUM CHLORIDE 0.9% 100 ML IVPB SCH ×3 (07:46→23:19)
[2019-10-24] MEDS: HYDROCORTISONE SUCCINATE 100 MG/2 ML VIAL IV SCH ×3 (07:46→23:20)
[2019-10-24] MEDS: SODIUM CHLORIDE 0.9% 1,000 ML IV SCH (07:49)
[2019-10-24] MEDS: SYMBICORT 160-4.5 MCG INHALER INHALATION SCH ×2 (08:31→18:45)
[2019-10-24 09:20] LABS: African American GFR (CKD) >90 (>60 ml/min/1.73 sqM); Anion Gap 4 mmol/L; Blood Urea Nitrogen 10 mg/dL (7-17); Calcium 7.9 mg/dL (8.4-10.2); Carbon Dioxide 28 mmol/L (22-30); Chloride 106 mmol/L (98-107); Glucose 129 mg/dL (74-99); Non-African American GFR(CKD) >90 (>60 ml/min/1.73 sqM); Potassium 3.7 mmol/L (3.5-5.1); Sodium 138 mmol/L (137-145)
[2019-10-24] MEDS: cycloSPORINE 0.05% OPHTH 0.4 ML DROPERETTE BOTH EYES SCH ×2 (09:56→21:39)
[2019-10-24] MEDS: SIMETHICONE 40 MG/0.6 ML DROPS 2,000 MG/30 ML BOTTLE PO SCH ×4 (09:57→21:56)
[2019-10-24] MEDS: DULoxetine HCL 20 MG CAPSULE.DR PO SCH (09:58)
[2019-10-24] MEDS: lisinopriL 20 MG TAB PO SCH (09:59)
[2019-10-24] MEDS: PANTOPRAZOLE 40 MG TABLET PO SCH (09:59)
[2019-10-24] MEDS: prednisoLONE ACETATE 1% OPHTH DROPS 5 ML BTL BOTH EYES SCH (10:01)
--- NOTE | 2019-10-24 10:04 | P.PN ---
Subjective Progress Note Date: 10/24/19 Patient seen and examined at bedside. Patient is up in chair relaxing. States she is having much improved levels of pain. JUAN JOSÉ drain was serosanguineous output. States she is having a significant amount of flatus into the ostomy bag. Objective - Vital Signs Vital signs: Vital Signs Temp 98.3 F 10/24/19 07:21 Pulse 88 10/24/19 07:21 Resp 16 10/24/19 08:00 BP 195/94 10/24/19 07:21 Pulse Ox 97 10/24/19 07:21 Intake & Output 10/23/19 10/24/19 10/24/19 18:59 06:59 18:59 Intake Total 150 Output Total 980 1090 Balance -980 -940 Weight 79.832 kg Intake: Intake, IV Titration 150 Amount Sodium Chloride 0.9% 1, 150 000 ml @ 75 mls/hr IV . [id number] MICHAEL Rx#:[id number] Output: Drainage 80 40 Abdomen 80 40 Urine 900 1050 Uretheral (Murray) 900 Other: Voiding Method Toilet Toilet Toilet # Voids 1 1 - Constitutional General appearance: Present: cooperative, obese - Respiratory Details: No difficulty with respiration - Gastrointestinal Gastrointestinal Comment(s): Soft, appropriate tenderness, nondistended, no rebound, no guarding, midline incision site clean, dry and intact, JUAN JOSÉ drain in place with serous segment S output, ostomy with edema and patent - Musculoskeletal Musculoskeletal: Present: generalized weakness - Psychiatric Psychiatric: Present: A&O x's 3 - Labs CBC & Chem 7: 10/23/19 06:36 10/24/19 08:08 Labs: Abnormal Lab Results - Last 24 Hours (Table) 10/23/19 10/23/19 10/23/19 Range/Units 11:50 13:59 16:58 Potassium 3.3 L (3.5-5.1) mmol/L Glucose (74-99) mg/dL POC Glucose (mg/dL) 138 H 115 H (75-99) mg/dL Calcium (8.4-10.2) mg/dL 10/23/19 10/23/19 10/23/19 Range/Units 18:38 20:26 22:54 Potassium 3.3 L 3.4 L (3.5-5.1) mmol/L Glucose (74-99) mg/dL POC Glucose (mg/dL) 166 H (75-99) mg/dL Calcium (8.4-10.2) mg/dL 10/24/19 10/24/19 Range/Units 07:08 08:08 Potassium (3.5-5.1) mmol/L Glucose 129 H (74-99) mg/dL POC Glucose (mg/dL) 118 H (75-99) mg/dL Calcium 7.9 L (8.4-10.2) mg/dL Microbiology - Last 24 Hours (Table) 10/21/19 14:16 Gram Stain - Final Abdomen Wound Culture - Final Citrobacter freundii Klebsiella pneumoniae Assessment and Plan (1) Diverticulitis Narrative/Plan: 59-year-old female postoperative day #3, exploratory laparotomy and Matos's procedure secondary to perforated diverticulitis - Ostomy nurse has been consulted for ostomy education, she has met with the patient - Continue IV antibiotics, ID has been consultation. Appreciate recommendations - Advance to full liquid diet - Pain control with narcotic pain medication and Toradol - Increase activity - Continue medical care for medical comorbidities. I discussed this in depth with the patient. There is significant concern about wound healing and postoperative infection secondary to the patient's history of chronic steroid use along with Rituxan use for Daniel's. She states that her last Rituxan dose was in April of this year. We will closely monitor the patient's progress with wound healing and for postoperative infection based on her clinical progress. - Will continue to follow and make recommendations based on the patient's clinical progress. Current Visit: Yes Status: Acute Code(s): K57.92 - DVTRCLI OF INTEST, PART UNSP, W/O PERF OR ABSCESS W/O BLEED SNOMED Code(s): 239254882
--- NOTE | 2019-10-24 10:24 | P.PN ---
Subjective Progress Note Date: 10/24/19 This is a 59-year-old female patient of Dr. Alvarez and Dr. Damico. with past medical history of diabetes mellitus type 2, Curtis granulomatosis, gastroesophageal reflux disease, hypertension. Patient presented to [facility] due to abdominal pain as well as diarrhea that it going on for 3 weeks. She has at least 1 loose stool daily. Yesterday she developed nausea and vomiting as well as lower abdominal pain. No fever or chills. No shortness of breath, chest pain, headache. Patient came into [facility] emergency center for evaluation and found to be afebrile, heart rate 90, blood pressure 153/81, pulse ox 94% on room air. WBC 14.7, hemoglobin 12.8, platelet count 385. Sodium 138, potassium 3.4, chloride 101, CO2 26, BUN 20 creatinine 0.94. Blood sugar 132. Lactic acid 1.5. Total bilirubin 0.5, AST 29, ALT 52, alkaline phosphatase 69. Lipase 1682. Urinalysis clear with nitrate and leukoesterase negative. CAT scan of the abdomen and pelvis with contrast revealed sigmoid diverticula with focal diverticulitis in the distal sigmoid colon. Normal appendix. Numerous nonobstructed bilateral renal calculi. Patient was given 1 L of IV fluids, Zofran, morphine with improvement of her pain and [facility] Consult with general surgery regarding diverticulitis. Patient is currently on clear liquid diet. COVID-19 testing in process. 10/17: Still complaining of increase pain in the abdomen today, there is no nausea or vomiting we will continue with IVF and we will change to add KCL , we will keep NPO , reevaluate in 24 hours, surgery consult appreciated, there is no chest pain or shortness of breath, no coughing, she has not had any bowel movements , she is passing gas. 10/18: Patient is laying down in bed she continues to have increased pain left lower quadrant, she continues to spit up some sputum, she has no chest pain or any shortness breath at this time, she has not had any bowel movement. She was started on clear liquid diet however she did not get anything yet beside water and ice, she seems clinically better she continues to be hypokalemic we will replace again. We will increase her IV fluids to 100 mL an hour. 10/19: Patient has been seen by Dr. Ontiveros this morning. She has had a few bowel movements in the past 24 hours. She states she has had no vomiting for greater than 24 hours since about 5:30 in the morning on Sunday which she relates to potassium. Her abdomen is folding machine tender with bloating but much improved. She states she slept okay during the night. Repeat potassium today is at 3 and will be replaced. Repeat potassium and magnesium level to be done at 7 PM. IV fluids decreased to 75 mL per hour. Patient has been afebrile, heart rate 88, blood pressure 170/91, pulse ox 96% on room air. A repeat blood work reveals hemoglobin 9.9, WBC 7.9. Blood sugars running between 129 and 134. Creatinine 0.7. Anticipate probable discharge tomorrow. 10/20: The patient was anticipating discharge home today but she still had abdominal distention. Urgent Abdominal x-ray was ordered which did show significant amount of abdominal distention. Patient was made nothing by mouth and Dr. Ontiveros was contacted by Dr. Alvarez regarding concerns for perforation. Patient has been scheduled for exploratory laparotomy for today. Patient has been afebrile, heart rate 89, blood pressure 172/104. A repeat blood work reveals sodium 137, potassium 3.2, chloride 104, CO2 27, BUN 13 and creatinine 0.67. 10/21: Yesterday, patient underwent exploratory laparotomy and Dong procedure for perforated diverticulitis pneumoperitoneum. The patient is currently on Unasyn. Incentive spirometry and KRYSTAL hose will be added. Patient has JUAN JOSÉ drain in place with blood-tinged serous drainage. She is complaining of significant pain and Dilaudid increased frequency to every 2 hours. She is on clear liquids. Murray catheter is in place. She has been afebrile, heart rate 104, blood pressure 173/91, pulse ox 97% on room air. Capillary blood glucose running between 108 - 141. Repeat blood work reveals WBC 10, hemoglobin 11.1, platelet count 464. Sodium 138, potassium 3.0, chloride 102, CO2 28, BUN 13, creatinine 0.71. Blood cultures are in progress. 10/22: The patient was seen by Dr. Stone and antibiotics changed to Zosyn. Wound cultures gram-negative bacilli. Patient was seen by Dorie Thomas yesterday for ostomy teaching. She is currently on clear liquid diet. Pain has been mostly 78 through the night. She does complain of some right-sided abdominal pain that is new over the last half hour. She complains of nausea and also lower extremity edema. Murray cath remains in place with good output. She has been afebrile, heart rate 104, blood pressure 173/79, pulse ox 95% on room air. Blood sugars running between 130s to 154. Potassium is 2.6 and being replaced and recheck potassium in the evening. WBC 10.9, hemoglobin 9.6. Solu-Cortef decrease to 50 mg IV every 8 hours. 10/23: Patient's pain is better controlled today. She is tolerating clear liquids and enjoying chicken broth this morning. There is gas in her colostomy bag. Murray is out and patient has been able to void on her own. JUAN JOSÉ drain remains in place with serosanguineous drainage. There is currently no IV access and patient was told multiple times during the night to start an IV. Midline will be ordered. Blood pressure is elevated this morning most likely due to stress. Blood pressure 195/94, heart rate 88, pulse ox 97% on room air. Diet to be advanced to full liquids today, increase activity and continue IV antibiotics. Objective - Vital Signs Vital signs: Vital Signs Temp 98.3 F 10/24/19 07:21 Pulse 88 10/24/19 07:21 Resp 16 10/24/19 07:21 BP 195/94 10/24/19 07:21 Pulse Ox 97 10/24/19 07:21 Intake & Output 10/23/19 10/24/19 10/24/19 18:59 06:59 18:59 Intake Total 150 Output Total 980 1090 Balance -980 -940 Weight 79.832 kg Intake: Intake, IV Titration 150 Amount Sodium Chloride 0.9% 1, 150 000 ml @ 75 mls/hr IV . [id number] MICHAEL Rx#:[id number] Output: Drainage 80 40 Abdomen 80 40 Urine 900 1050 Uretheral (Murray) 900 Other: Voiding Method Toilet Toilet # Voids 1 1 - Exam Review of Systems Constitutional: Reports fatigue, Reports weakness, Denies chills, Denies fever Eyes: denies blurred vision, denies pain Ears, nose, mouth and throat: Denies headache, Denies nasal congestion, Denies nasal discharge, Denies sore throat, Denies vertigo Cardiovascular: Denies chest pain, Denies dyspnea on exertion, Denies leg edema, Denies shortness of breath, Denies syncope Respiratory: Denies cough, Denies cough with sputum, Denies dyspnea, Denies excessive sputum, Denies hemoptysis, Denies respiratory infections Gastrointestinal: Reports abdominal pain-improved, Reports change in bowel habits, denies diarrhea, denies loss of appetite, denies nausea, denies vomiting, Denies BRBPR, Denies hematemesis, Denies hematochezia, Denies melena, reports abdominal discomfort Genitourinary: Denies dysuria, Denies hematuria, Denies urgency, Denies urinary frequency Menstruation: Reports postmenopausal Musculoskeletal: Denies frequent falls, Denies gait dysfunction, Denies myalgias Integumentary: Denies pruritus, Denies rash, Denies wounds Neurological: Denies change in mentation, Denies change in speech, Denies gait dysfunction, Denies numbness, Denies seizures, Denies weakness Psychiatric: Denies anxiety, Denies depression Endocrine: Denies fatigue, Denies weight change Physical Examination - Constitutional General appearance: no distress, obese - EENT Eyes: anicteric sclerae, EOMI, PERRLA, no ptosis, no scleral icterus, normal appearance ENT: hearing grossly normal, NA/AT, normal oropharynx, no thrush Ears: bilateral: normal - Neck Neck: no lymphadenopathy, normal ROM, no rigidity, no stridor, no thyromegaly Carotids: bilateral: upstroke normal Thyroid: bilateral: normal size - Respiratory Respiratory: bilateral: diminished, wheezing, prolonged expiration, negative: dullness, rales, rhonchi Frequent moist cough - Cardiovascular Rhythm: regular Heart sounds: normal: S1, S2 Abnormal Heart Sounds: no systolic murmur, no rub, no S3 Gallop, no S4 Gallop, no click - Gastrointestinal General gastrointestinal: Hypoactive bowel sounds, soft, mild tenderness around surgical site. Ostomy in the left lower quadrant with gas in bag, dressing midline has dried blood with no active bleeding noted. JUAN JOSÉ drain with serosanguineous output. - Integumentary Integumentary: normal, normal turgor - Neurologic Neurologic: CNII-XII intact - Musculoskeletal Musculoskeletal: generalized weakness - Psychiatric Psychiatric: A&O x's 3, appropriate affect, intact judgment & insight - Labs CBC & Chem 7: 10/23/19 06:36 10/24/19 08:08 Labs: Abnormal Lab Results - Last 24 Hours (Table) 10/23/19 10/23/19 10/23/19 Range/Units 11:50 13:59 16:58 Potassium 3.3 L (3.5-5.1) mmol/L POC Glucose (mg/dL) 138 H 115 H (75-99) mg/dL 10/23/19 10/23/19 10/23/19 Range/Units 18:38 20:26 22:54 Potassium 3.3 L 3.4 L (3.5-5.1) mmol/L POC Glucose (mg/dL) 166 H (75-99) mg/dL 10/24/19 Range/Units 07:08 Potassium (3.5-5.1) mmol/L POC Glucose (mg/dL) 118 H (75-99) mg/dL Microbiology - Last 24 Hours (Table) 10/21/19 14:16 Gram Stain - Final Abdomen Wound Culture - Final Citrobacter freundii Klebsiella pneumoniae Assessment and Plan Plan: 1. Acute diverticulitis. IV fluids decreased to 50 per hour. Diet advance to full liquid. Continue current pain management. Zofran for nausea and vomiting, IV Dilaudid for pain control, Reglan as needed. 2. Pneumoperitoneum and acute peritonitis secondary to perforated diverticulitis status post exploratory laparotomy and Dong procedure with Dr. Ontiveros. Continue Zosyn, Dilaudid 1 mg every 2 hours, Toradol as needed, Zofran for nausea. Reglan as needed. 3. Hypokalemia status post replacement. Continue to monitor and replace. 4. COPD without exacerbation. Continue albuterol nebulizer treatment as needed, DuoNeb treatment at bedtime, Symbicort 2 puffs twice daily. 5. Adrenal insufficiency disorder. Oral Cortef discontinued and patient placed on Solu-Cortef IV 50 mg every 8 hours. 6. History of Curtis granulomatosis. Continue steroids as above. 7. GERD. Continue Protonix 40 mg every day. 8. Hyperglycemia. CBG before meals and at bedtime, NovoLog scale. 9. Chronic tobacco use and dependence--patient quit July 2018. 10. Hypertension. Continue lisinopril 20 mg daily, discontinue hydrochlorothiazide 12.5 mg daily, IV hydralazine as needed. 11. Recurrent depression. Continue Cymbalta 20 mg daily 12. DVT prophylaxis. Heparin subcu 3 times daily. 13. COVID-19 infection not present. 14. GI prophylaxis. Continue patient on Protonix 40 mg orally once every day. 15. DVT Prophylaxis . Heparin 5000 units SC Q 8 H. Discharge plan: Home Impression and plan of care have been directed as dictated by the signing physician. Lanette Mccarthy nurse practitioner acting as scribe for signing physician.
[2019-10-24 11:41] LABS: Glucose,Whole Blood 126 mg/dL (75-99)
[2019-10-24 16:36] LABS: Glucose,Whole Blood 101 mg/dL (75-99)
[2019-10-24] MEDS: IPRATROPIUM-ALBUTEROL 3 ML NEB INHALATION SCH (18:48)
[2019-10-24] MEDS: hydrALAZINE HCL 20 MG/ML 1 ML VIAL IVP PRN (19:15)
[2019-10-24] MEDS: METOCLOPRAMIDE 5 MG/ML 2 ML VIAL IVP PRN (19:41)
[2019-10-24 21:04] LABS: Glucose,Whole Blood 117 mg/dL (75-99)
[2019-10-24] MEDS: LATANOPROST 0.005% OPHTH DROPS 2.5 ML BTL BOTH EYES SCH (21:39)
--- NOTE | 2019-10-24 23:29 | PN ---
PROGRESS NOTE DATE OF SERVICE: 10/24/2019 REASON FOR FOLLOWUP: Abdominal abscess from perforated diverticulitis. INTERVAL HISTORY: The patient is currently afebrile. The patient is breathing comfortably. The patient denies having any chest pain or shortness of breath or cough. Abdominal pain is currently controlled. No nausea, no vomiting. No diarrhea. PHYSICAL EXAMINATION: Blood pressure 185/81 with a pulse of 92, temperature 98.2. She is 95% on room air. General description is a middle-aged female lying in bed in no distress. RESPIRATORY SYSTEM: Unlabored breathing. Clear to auscultation anteriorly. HEART: S1, S2. Regular rate and rhythm. ABDOMEN: Soft. No tenderness. No guarding or rigidity. LABS: BUN of 10, creatinine 0.62. Wound culture with Citrobacter and klebsiella. DIAGNOSTIC IMPRESSION AND PLAN: Patient with abdominal abscess from perforated diverticulitis, status post drainage. Culture with klebsiella and patient is currently covered with Zosyn; to continue. In view of the underlying immunosuppression, may benefit from outpatient antibiotics. Continue with supportive care. MMODL / IJN: [id number] /
[2019-10-25] MEDS: hydrALAZINE HCL 20 MG/ML 1 ML VIAL IVP PRN ×2 (03:20→13:49)
[2019-10-25] MEDS: SODIUM CHLORIDE 0.9% 1,000 ML IV SCH ×2 (03:26→21:21)
[2019-10-25] MEDS: KETOROLAC 30 MG/ML 1 ML VIAL IVP SCH ×4 (06:05→23:07)
[2019-10-25 07:02] LABS: Glucose,Whole Blood 115 mg/dL (75-99)
[2019-10-25 07:05] LABS: HCT 30.7 % (34.0-46.0); HGB 9.7 gm/dL (11.4-16.0); MCH 27.9 pg (25.0-35.0); MCHC 31.4 g/dL (31.0-37.0); MCV 88.7 fL (80.0-100.0); Mean Platelet Volume 7.2; Platelet Count 567 k/uL (150-450); RBC 3.46 m/uL (3.80-5.40); RDW 14.3 % (11.5-15.5); WBC 10.1 k/uL (3.8-10.6)
[2019-10-25] MEDS: INSULIN ASPART (NovoLOG) 100 UNIT/ML VIAL SQ SCH ×4 (07:18→21:18)
[2019-10-25] MEDS: PANTOPRAZOLE 40 MG TABLET PO SCH (07:57)
[2019-10-25] MEDS: HYDROCORTISONE SUCCINATE 100 MG/2 ML VIAL IV SCH ×4 (07:57→23:07)
[2019-10-25] MEDS: DULoxetine HCL 20 MG CAPSULE.DR PO SCH (07:57)
[2019-10-25] MEDS: cycloSPORINE 0.05% OPHTH 0.4 ML DROPERETTE BOTH EYES SCH ×2 (07:57→21:22)
[2019-10-25] MEDS: lisinopriL 20 MG TAB PO SCH (07:57)
[2019-10-25] MEDS: HEPARIN SODIUM,PORCINE 5,000 UNIT/ML 1 ML VIAL SQ SCH ×3 (07:57→23:08)
[2019-10-25] MEDS: PIPERACILLIN-TAZOBACTAM 3.375 GM in SODIUM CHLORIDE 0.9% 100 ML IVPB SCH ×3 (07:58→23:08)
[2019-10-25] MEDS: SIMETHICONE 40 MG/0.6 ML DROPS 2,000 MG/30 ML BOTTLE PO SCH ×4 (07:58→21:23)
[2019-10-25] MEDS: prednisoLONE ACETATE 1% OPHTH DROPS 5 ML BTL BOTH EYES SCH (07:58)
[2019-10-25] MEDS: SYMBICORT 160-4.5 MCG INHALER INHALATION SCH ×2 (08:14→20:00)
[2019-10-25 08:21] LABS: ALT 47 U/L (4-34); AST 58 U/L (14-36); African American GFR (CKD) >90 (>60 ml/min/1.73 sqM); Albumin 3.1 g/dL (3.5-5.0); Alkaline Phosphatase 143 U/L (38-126); Anion Gap 6 mmol/L; Blood Urea Nitrogen 9 mg/dL (7-17); Calcium 7.9 mg/dL (8.4-10.2); Carbon Dioxide 27 mmol/L (22-30); Chloride 105 mmol/L (98-107); Glucose 122 mg/dL (74-99); Non-African American GFR(CKD) >90 (>60 ml/min/1.73 sqM); Potassium 3.8 mmol/L (3.5-5.1); Sodium 138 mmol/L (137-145); Total Bilirubin 0.7 mg/dL (0.2-1.3); Total Protein 5.3 g/dL (6.3-8.2)
--- NOTE | 2019-10-25 11:11 | P.PN ---
Subjective Progress Note Date: 10/25/19 This is a 59-year-old female patient of Dr. Alvarez and Dr. Damico. with past medical history of diabetes mellitus type 2, Curtis granulomatosis, gastroesophageal reflux disease, hypertension. Patient presented to [facility] due to abdominal pain as well as diarrhea that it going on for 3 weeks. She has at least 1 loose stool daily. Yesterday she developed nausea and vomiting as well as lower abdominal pain. No fever or chills. No shortness of breath, chest pain, headache. Patient came into [facility] emergency center for evaluation and found to be afebrile, heart rate 90, blood pressure 153/81, pulse ox 94% on room air. WBC 14.7, hemoglobin 12.8, platelet count 385. Sodium 138, potassium 3.4, chloride 101, CO2 26, BUN 20 creatinine 0.94. Blood sugar 132. Lactic acid 1.5. Total bilirubin 0.5, AST 29, ALT 52, alkaline phosphatase 69. Lipase 1682. Urinalysis clear with nitrate and leukoesterase negative. CAT scan of the abdomen and pelvis with contrast revealed sigmoid diverticula with focal diverticulitis in the distal sigmoid colon. Normal appendix. Numerous nonobstructed bilateral renal calculi. Patient was given 1 L of IV fluids, Zofran, morphine with improvement of her pain and [facility] Consult with general surgery regarding diverticulitis. Patient is currently on clear liquid diet. COVID-19 testing in process. 10/17: Still complaining of increase pain in the abdomen today, there is no nausea or vomiting we will continue with IVF and we will change to add KCL , we will keep NPO , reevaluate in 24 hours, surgery consult appreciated, there is no chest pain or shortness of breath, no coughing, she has not had any bowel movements , she is passing gas. 10/18: Patient is laying down in bed she continues to have increased pain left lower quadrant, she continues to spit up some sputum, she has no chest pain or any shortness breath at this time, she has not had any bowel movement. She was started on clear liquid diet however she did not get anything yet beside water and ice, she seems clinically better she continues to be hypokalemic we will replace again. We will increase her IV fluids to 100 mL an hour. 10/19: Patient has been seen by Dr. Ontiveros this morning. She has had a few bowel movements in the past 24 hours. She states she has had no vomiting for greater than 24 hours since about 5:30 in the morning on Sunday which she relates to potassium. 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 She states she slept okay during the night. Repeat potassium today is at 3 and will be replaced. Repeat potassium and magnesium level to be done at 7 PM. IV fluids decreased to 75 mL per hour. Patient has been afebrile, heart rate 88, blood pressure 170/91, pulse ox 96% on room air. A repeat blood work reveals hemoglobin 9.9, WBC 7.9. Blood sugars running between 129 and 134. Creatinine 0.7. Anticipate probable discharge tomorrow. 10/20: The patient was anticipating discharge home today but she still had abdominal distention. Urgent Abdominal x-ray was ordered which did show significant amount of abdominal distention. Patient was made nothing by mouth and Dr. Ontiveros was contacted by Dr. Alvarez regarding concerns for perforation. Patient has been scheduled for exploratory laparotomy for today. Patient has been afebrile, heart rate 89, blood pressure 172/104. A repeat blood work reveals sodium 137, potassium 3.2, chloride 104, CO2 27, BUN 13 and creatinine 0.67. 10/21: Yesterday, patient underwent exploratory laparotomy and Dong procedure for perforated diverticulitis pneumoperitoneum. The patient is currently on Unasyn. Incentive spirometry and KRYSTAL hose will be added. Patient has JUAN JOSÉ drain in place with blood-tinged serous drainage. She is complaining of significant pain and Dilaudid increased frequency to every 2 hours. She is on clear liquids. Murray catheter is in place. She has been afebrile, heart rate 104, blood pressure 173/91, pulse ox 97% on room air. Capillary blood glucose running between 108 - 141. Repeat blood work reveals WBC 10, hemoglobin 11.1, platelet count 464. Sodium 138, potassium 3.0, chloride 102, CO2 28, BUN 13, creatinine 0.71. Blood cultures are in progress. 10/22: The patient was seen by Dr. Stone and antibiotics changed to Zosyn. Wound cultures gram-negative bacilli. Patient was seen by Dorie Thomas yesterday for ostomy teaching. She is currently on clear liquid diet. Pain has been mostly 78 through the night. She does complain of some right-sided abdominal pain that is new over the last half hour. She complains of nausea and also lower extremity edema. Murray cath remains in place with good output. She has been afebrile, heart rate 104, blood pressure 173/79, pulse ox 95% on room air. Blood sugars running between 130s to 154. Potassium is 2.6 and being replaced and recheck potassium in the evening. WBC 10.9, hemoglobin 9.6. Solu-Cortef decrease to 50 mg IV every 8 hours. 10/23: Patient's pain is better controlled today. She is tolerating clear liquids and enjoying chicken broth this morning. There is gas in her colostomy bag. Murray is out and patient has been able to void on her own. JUAN JOSÉ drain remains in place with serosanguineous drainage. There is currently no IV access and patient was told multiple times during the night to start an IV. Midline will be ordered. Blood pressure is elevated this morning most likely due to stress. Blood pressure 195/94, heart rate 88, pulse ox 97% on room air. Diet to be advanced to full liquids today, increase activity and continue IV antibiotics. 10/24: Patient is feeling a lot better today she denies any chest pain or shortness breath, she has no coughing she has no fever or chills, her stoma is working very well, she has less swelling both lower extremities today, she slept well yesterday, she has a mid line in the right upper extremity. Objective - Vital Signs Vital signs: Vital Signs Temp 98.7 F 10/25/19 07:00 Pulse 88 10/25/19 08:00 Resp 16 10/25/19 08:00 BP 172/75 10/25/19 07:00 Pulse Ox 94 L 10/25/19 07:00 Intake & Output 10/24/19 10/25/19 10/25/19 18:59 06:59 18:59 Output Total 20 35 50 Balance -20 -35 -50 Weight 79.832 kg Output: Drainage 20 35 Abdomen 20 35 Stool 50 Other: Voiding Method Toilet Toilet Toilet # Voids 2 3 - Exam - Exam Review of Systems Constitutional: Reports fatigue, Reports weakness, Denies chills, Denies fever Eyes: denies blurred vision, denies pain Ears, nose, mouth and throat: Denies headache, Denies nasal congestion, Denies nasal discharge, Denies sore throat, Denies vertigo Cardiovascular: Denies chest pain, Denies dyspnea on exertion, Denies leg edema, Denies shortness of breath, Denies syncope Respiratory: Denies cough, Denies cough with sputum, Denies dyspnea, Denies excessive sputum, Denies hemoptysis, Denies respiratory infections Gastrointestinal: Reports abdominal pain-improved, Reports change in bowel habits, denies diarrhea, denies loss of appetite, denies nausea, denies vomiting, Denies BRBPR, Denies hematemesis, Denies hematochezia, Denies melena, reports abdominal discomfort Genitourinary: Denies dysuria, Denies hematuria, Denies urgency, Denies urinary frequency Menstruation: Reports postmenopausal Musculoskeletal: Denies frequent falls, Denies gait dysfunction, Denies myalgias Integumentary: Denies pruritus, Denies rash, Denies wounds Neurological: Denies change in mentation, Denies change in speech, Denies gait dysfunction, Denies numbness, Denies seizures, Denies weakness Psychiatric: Denies anxiety, Denies depression Endocrine: Denies fatigue, Denies weight change Physical Examination - Constitutional General appearance: no distress, obese - EENT Eyes: anicteric sclerae, EOMI, PERRLA, no ptosis, no scleral icterus, normal appearance ENT: hearing grossly normal, NA/AT, normal oropharynx, no thrush Ears: bilateral: normal - Neck Neck: no lymphadenopathy, normal ROM, no rigidity, no stridor, no thyromegaly Carotids: bilateral: upstroke normal Thyroid: bilateral: normal size - Respiratory Respiratory: bilateral: diminished, wheezing, prolonged expiration, negative: dullness, rales, rhonchi Frequent moist cough - Cardiovascular Rhythm: regular Heart sounds: normal: S1, S2 Abnormal Heart Sounds: no systolic murmur, no rub, no S3 Gallop, no S4 Gallop, no click - Gastrointestinal General gastrointestinal: Hypoactive bowel sounds, soft, mild tenderness around surgical site. Ostomy in the left lower quadrant with gas in bag, dressing midline has dried blood with no active bleeding noted. JUAN JOSÉ drain with serosanguineous output. - Integumentary Integumentary: normal, normal turgor - Neurologic Neurologic: CNII-XII intact - Musculoskeletal Musculoskeletal: generalized weakness - Psychiatric Psychiatric: A&O x's 3, appropriate affect, intact judgment & insight - Labs CBC & Chem 7: 10/25/19 06:31 10/25/19 06:31 Labs: Abnormal Lab Results - Last 24 Hours (Table) 10/24/19 10/24/19 10/24/19 Range/Units 11:28 16:34 21:02 RBC (3.80-5.40) m/uL Hgb (11.4-16.0) gm/dL Hct (34.0-46.0) % Plt Count (150-450) k/uL Glucose (74-99) mg/dL POC Glucose (mg/dL) 126 H 101 H 117 H (75-99) mg/dL Calcium (8.4-10.2) mg/dL AST (14-36) U/L ALT (4-34) U/L Alkaline Phosphatase (38-126) U/L Total Protein (6.3-8.2) g/dL Albumin (3.5-5.0) g/dL 10/25/19 10/25/19 10/25/19 Range/Units 06:31 06:31 06:58 RBC 3.46 L (3.80-5.40) m/uL Hgb 9.7 L (11.4-16.0) gm/dL Hct 30.7 L (34.0-46.0) % Plt Count 567 H (150-450) k/uL Glucose 122 H (74-99) mg/dL POC Glucose (mg/dL) 115 H (75-99) mg/dL Calcium 7.9 L (8.4-10.2) mg/dL AST 58 H (14-36) U/L ALT 47 H (4-34) U/L Alkaline Phosphatase 143 H (38-126) U/L Total Protein 5.3 L (6.3-8.2) g/dL Albumin 3.1 L (3.5-5.0) g/dL Microbiology - Last 24 Hours (Table) 10/21/19 14:16 Anaerobic Culture - Final Abdomen 10/21/19 14:16 Anaerobic Culture - Final Abdomen Anaerobic Gm Negative Bacilli 10/21/19 14:16 Gram Stain - Final Abdomen Wound Culture - Preliminary Citrobacter freundii Klebsiella pneumoniae Assessment and Plan Assessment: Assessment and Plan Plan: 1. Acute diverticulitis. Decrease IV fluid to KVO.. Diet advance to soft diet. Continue current pain management. Zofran for nausea and vomiting, IV Dilaudid for pain control, Reglan as needed. 2. Pneumoperitoneum and acute peritonitis secondary to perforated diverticulitis status post exploratory laparotomy and Dong procedure with Dr. Ontiveros. Continue Zosyn, Dilaudid 1 mg every 2 hours, Toradol as needed, Zofran for nausea. Reglan as needed. 3. Hypokalemia status post replacement. Continue to monitor and replace. 4. COPD without exacerbation. Continue albuterol nebulizer treatment as needed, DuoNeb treatment at bedtime, Symbicort 2 puffs twice daily. 5. Adrenal insufficiency disorder. Oral Cortef discontinued and patient placed on Solu-Cortef IV 50 mg every 8 hours. 6. History of Curtis granulomatosis. Continue steroids as above. 7. GERD. Continue Protonix 40 mg every day. 8. Hyperglycemia. CBG before meals and at bedtime, NovoLog scale. 9. Chronic tobacco use and dependence--patient quit July 2018. 10. Hypertension. Continue lisinopril 20 mg daily, discontinue hydrochlorothia zide 12.5 mg daily, IV hydralazine as needed. 11. Recurrent depression. Continue Cymbalta 20 mg daily 12. DVT prophylaxis. Heparin subcu 3 times daily. 13. COVID-19 infection not present. 14. GI prophylaxis. Continue patient on Protonix 40 mg orally once every day. 15. DVT Prophylaxis . Heparin 5000 units SC Q 8 H. Discharge plan: Home
[2019-10-25 11:30] LABS: Glucose,Whole Blood 141 mg/dL (75-99)
--- NOTE | 2019-10-25 12:29 | P.PN ---
Subjective Progress Note Date: 10/25/19 Patient doing well, stool and gas reported in bag Objective - Vital Signs Vital signs: Vital Signs Temp 98.7 F 10/25/19 07:00 Pulse 88 10/25/19 08:00 Resp 16 10/25/19 08:00 BP 172/75 10/25/19 07:00 Pulse Ox 94 L 10/25/19 07:00 Intake & Output 10/24/19 10/25/19 10/25/19 18:59 06:59 18:59 Output Total 20 35 50 Balance -20 -35 -50 Weight 79.832 kg Output: Drainage 20 35 Abdomen 20 35 Stool 50 Other: Voiding Method Toilet Toilet Toilet # Voids 2 3 - Constitutional General appearance: Present: cooperative - Cardiovascular Rhythm: regular - Gastrointestinal Gastrointestinal Comment(s): S/NT/ND incision cdi, melvi serosang, ostomy patent with stool and gas - Labs CBC & Chem 7: 10/25/19 06:31 10/25/19 06:31 Labs: Abnormal Lab Results - Last 24 Hours (Table) 10/24/19 10/24/19 10/25/19 Range/Units 16:34 21:02 06:31 RBC 3.46 L (3.80-5.40) m/uL Hgb 9.7 L (11.4-16.0) gm/dL Hct 30.7 L (34.0-46.0) % Plt Count 567 H (150-450) k/uL Glucose (74-99) mg/dL POC Glucose (mg/dL) 101 H 117 H (75-99) mg/dL Calcium (8.4-10.2) mg/dL AST (14-36) U/L ALT (4-34) U/L Alkaline Phosphatase (38-126) U/L Total Protein (6.3-8.2) g/dL Albumin (3.5-5.0) g/dL 10/25/19 10/25/19 10/25/19 Range/Units 06:31 06:58 11:29 RBC (3.80-5.40) m/uL Hgb (11.4-16.0) gm/dL Hct (34.0-46.0) % Plt Count (150-450) k/uL Glucose 122 H (74-99) mg/dL POC Glucose (mg/dL) 115 H 141 H (75-99) mg/dL Calcium 7.9 L (8.4-10.2) mg/dL AST 58 H (14-36) U/L ALT 47 H (4-34) U/L Alkaline Phosphatase 143 H (38-126) U/L Total Protein 5.3 L (6.3-8.2) g/dL Albumin 3.1 L (3.5-5.0) g/dL Microbiology - Last 24 Hours (Table) 10/21/19 14:16 Anaerobic Culture - Final Abdomen 10/21/19 14:16 Anaerobic Culture - Final Abdomen Anaerobic Gm Negative Bacilli 10/21/19 14:16 Gram Stain - Final Abdomen Wound Culture - Preliminary Citrobacter freundii Klebsiella pneumoniae Assessment and Plan Assessment: s/p hartmanns Plan: Diet as tolerated. encouraged IS and ambulation
[2019-10-25] MEDS: HYDROmorphone 1 MG/ML 1 ML SYRINGE IVP PRN (14:55)
[2019-10-25] MEDS: METOCLOPRAMIDE 5 MG/ML 2 ML VIAL IVP PRN (14:55)
[2019-10-25 16:25] LABS: Glucose,Whole Blood 160 mg/dL (75-99)
--- NOTE | 2019-10-25 17:11 | PN ---
PROGRESS NOTE DATE OF SERVICE: 10/25/2019 REASON FOR FOLLOWUP: Abdominal abscess from perforated sigmoid diverticulitis. INTERVAL HISTORY: Patient is currently afebrile. Patient is breathing comfortably. The patient denies having any chest pain or shortness of breath or cough. Abdominal pain is currently controlled. No nausea, no vomiting. PHYSICAL EXAMINATION: Blood pressure 173/74 with a pulse of 102, temperature 98.9 she is 98% on room air. General description is a middle-aged female lying in bed in no distress. Respiratory system: Unlabored breathing, clear to auscultation anteriorly. Heart S1, S2. Regular rhythm. Abdomen is distended, no rigidity. LABS: Hemoglobin 9.4, white count 10.1, creatinine 0.55. Abdominal culture with Citrobacter and Klebsiella pneumoniae. DIAGNOSTIC IMPRESSION AND PLAN: Patient with abdominal abscess from perforated sigmoid diverticulitis status post laparotomy and drainage of the abscess. Culture with Klebsiella and Citrobacter. Patient is covered with Zosyn to continue finish therapy with short course of IV antibiotic on discharge. Continue supportive care. MMODL / IJN: [id number] /
[2019-10-25] MEDS: IPRATROPIUM-ALBUTEROL 3 ML NEB INHALATION SCH (19:57)
[2019-10-25 21:14] LABS: Glucose,Whole Blood 125 mg/dL (75-99)
[2019-10-25] MEDS: LATANOPROST 0.005% OPHTH DROPS 2.5 ML BTL BOTH EYES SCH (21:22)
[2019-10-26] MEDS: HYDROmorphone 1 MG/ML 1 ML SYRINGE IVP PRN ×3 (01:01→22:16)
[2019-10-26] MEDS: METOCLOPRAMIDE 5 MG/ML 2 ML VIAL IVP PRN ×3 (01:10→18:45)
[2019-10-26] MEDS: KETOROLAC 30 MG/ML 1 ML VIAL IVP SCH (06:05)
[2019-10-26 06:58] LABS: Glucose,Whole Blood 142 mg/dL (75-99)
[2019-10-26 07:19] LABS: Basophils % (A) 0 %; Eosinophils % (A) 0 %; HGB 9.4 gm/dL (11.4-16.0); Lymphocytes # (A) 1.7 k/uL (1.0-4.8); Lymphocytes % (A) 16 %; MCH 27.8 pg (25.0-35.0); MCHC 31.2 g/dL (31.0-37.0); MCV 88.9 fL (80.0-100.0); Mean Platelet Volume 7.2; Monocytes # (A) 0.4 k/uL (0-1.0); Monocytes % (A) 4 %; Neutrophils # (A) 8.5 k/uL (1.3-7.7); Neutrophils % (A) 79 %; Platelet Count 562 k/uL (150-450); RBC 3.37 m/uL (3.80-5.40); RDW 14.4 % (11.5-15.5); WBC 10.8 k/uL (3.8-10.6)
[2019-10-26 07:32] LABS: ALT 47 U/L (4-34); AST 33 U/L (14-36); African American GFR (CKD) >90 (>60 ml/min/1.73 sqM); Alkaline Phosphatase 135 U/L (38-126); Anion Gap 7 mmol/L; Blood Urea Nitrogen 16 mg/dL (7-17); Calcium 7.6 mg/dL (8.4-10.2); Carbon Dioxide 30 mmol/L (22-30); Chloride 102 mmol/L (98-107); Glucose 133 mg/dL (74-99); Magnesium 1.5 mg/dL (1.6-2.3); Non-African American GFR(CKD) >90 (>60 ml/min/1.73 sqM); Potassium 2.9 mmol/L (3.5-5.1); Sodium 139 mmol/L (137-145); Total Bilirubin 0.5 mg/dL (0.2-1.3)
[2019-10-26] MEDS: SYMBICORT 160-4.5 MCG INHALER INHALATION SCH ×2 (08:19→20:19)
[2019-10-26] MEDS: HEPARIN SODIUM,PORCINE 5,000 UNIT/ML 1 ML VIAL SQ SCH ×3 (08:34→23:16)
[2019-10-26] MEDS: INSULIN ASPART (NovoLOG) 100 UNIT/ML VIAL SQ SCH ×4 (08:34→20:29)
[2019-10-26] MEDS: HYDROCORTISONE SUCCINATE 100 MG/2 ML VIAL IV SCH ×5 (08:35→23:16)
[2019-10-26] MEDS: PANTOPRAZOLE 40 MG TABLET PO SCH (08:36)
[2019-10-26] MEDS: lisinopriL 20 MG TAB PO SCH (08:36)
[2019-10-26] MEDS: DULoxetine HCL 20 MG CAPSULE.DR PO SCH (08:36)
[2019-10-26] MEDS: PIPERACILLIN-TAZOBACTAM 3.375 GM in SODIUM CHLORIDE 0.9% 100 ML IVPB SCH ×3 (08:36→23:16)
[2019-10-26] MEDS: cycloSPORINE 0.05% OPHTH 0.4 ML DROPERETTE BOTH EYES SCH ×2 (08:36→20:28)
[2019-10-26] MEDS: prednisoLONE ACETATE 1% OPHTH DROPS 5 ML BTL BOTH EYES SCH (08:44)
[2019-10-26] MEDS: SIMETHICONE 40 MG/0.6 ML DROPS 2,000 MG/30 ML BOTTLE PO SCH ×4 (08:45→22:16)
--- NOTE | 2019-10-26 10:13 | P.PN ---
Subjective Progress Note Date: 10/26/19 This is a 59-year-old female patient of Dr. Alvarez and Dr. Damico. with past medical history of diabetes mellitus type 2, Curtis granulomatosis, gastroesophageal reflux disease, hypertension. Patient presented to [facility] due to abdominal pain as well as diarrhea that it going on for 3 weeks. She has at least 1 loose stool daily. Yesterday she developed nausea and vomiting as well as lower abdominal pain. No fever or chills. No shortness of breath, chest pain, headache. Patient came into [facility] emergency [facility] for evaluation and found to be afebrile, heart rate 90, blood pressure 153/81, pulse ox 94% on room air. WBC 14.7, hemoglobin 12.8, platelet count 385. Sodium 138, potassium 3.4, chloride 101, CO2 26, BUN 20 creatinine 0.94. Blood sugar 132. Lactic acid 1.5. Total bilirubin 0.5, AST 29, ALT 52, alkaline phosphatase 69. Lipase 1682. Urinalysis clear with nitrate and leukoesterase negative. CAT scan of the abdomen and pelvis with contrast revealed sigmoid diverticula with focal diverticulitis in the distal sigmoid colon. Normal appendix. Numerous nonobstructed bilateral renal calculi. Patient was given 1 L of IV fluids, Zofran, morphine with improvement of her pain [facility] Consult with general surgery regarding diverticulitis. Patient is currently on clear liquid diet. COVID-19 testing in process. 10/17: Still complaining of increase pain in the abdomen today, there is no nausea or vomiting we will continue with IVF and we will change to add KCL , we will keep NPO , reevaluate in 24 hours, surgery consult appreciated, there is no chest pain or shortness of breath, no coughing, she has not had any bowel movements , she is passing gas. 10/18: Patient is laying down in bed she continues to have increased pain left lower quadrant, she continues to spit up some sputum, she has no chest pain or any shortness breath at this time, she has not had any bowel movement. She was started on clear liquid diet however she did not get anything yet beside water and ice, she seems clinically better she continues to be hypokalemic we will replace again. We will increase her IV fluids to 100 mL an hour. 10/19: Patient has been seen by Dr. Ontiveros this morning. She has had a few bowel movements in the past 24 hours. She states she has had no vomiting for greater than 24 hours since about 5:30 in the morning on Sunday which she relates to potassium. Her abdomen is coke still cleaner with bloating but much improved. She states she slept okay during the night. Repeat potassium today is at 3 and will be replaced. Repeat potassium and magnesium level to be done at 7 PM. IV fluids decreased to 75 mL per hour. Patient has been afebrile, heart rate 88, blood pressure 170/91, pulse ox 96% on room air. A repeat blood work reveals hemoglobin 9.9, WBC 7.9. Blood sugars running between 129 and 134. Creatinine 0.7. Anticipate probable discharge tomorrow. 10/20: The patient was anticipating discharge home today but she still had abdominal distention. Urgent Abdominal x-ray was ordered which did show significant amount of abdominal distention. Patient was made nothing by mouth and Dr. Ontiveros was contacted by Dr. Alvarez regarding concerns for perforation. Patient has been scheduled for exploratory laparotomy for today. Patient has been afebrile, heart rate 89, blood pressure 172/104. A repeat blood work reveals sodium 137, potassium 3.2, chloride 104, CO2 27, BUN 13 and creatinine 0.67. 10/21: Yesterday, patient underwent exploratory laparotomy and Dong procedure for perforated diverticulitis pneumoperitoneum. The patient is currently on Unasyn. Incentive spirometry and KRYSTAL hose will be added. Patient has JUAN JOSÉ drain in place with blood-tinged serous drainage. She is complaining of significant pain and Dilaudid increased frequency to every 2 hours. She is on clear liquids. Murray catheter is in place. She has been afebrile, heart rate 104, blood pressure 173/91, pulse ox 97% on room air. Capillary blood glucose running between 108 - 141. Repeat blood work reveals WBC 10, hemoglobin 11.1, platelet count 464. Sodium 138, potassium 3.0, chloride 102, CO2 28, BUN 13, creatinine 0.71. Blood cultures are in progress. 10/22: The patient was seen by Dr. Stone and antibiotics changed to Zosyn. Wound cultures gram-negative bacilli. Patient was seen by Dorie Thomas yesterday for ostomy teaching. She is currently on clear liquid diet. Pain has been mostly 78 through the night. She does complain of some right-sided abdominal pain that is new over the last half hour. She complains of nausea and also lower extremity edema. Murray cath remains in place with good output. She has been afebrile, heart rate 104, blood pressure 173/79, pulse ox 95% on room air. Blood sugars running between 130s to 154. Potassium is 2.6 and being replaced and recheck potassium in the evening. WBC 10.9, hemoglobin 9.6. Solu-Cortef decrease to 50 mg IV every 8 hours. 10/23: Patient's pain is better controlled today. She is tolerating clear liquids and enjoying chicken broth this morning. There is gas in her colostomy bag. Murray is out and patient has been able to void on her own. JUAN JOSÉ drain remains in place with serosanguineous drainage. There is currently no IV access and patient was told multiple times during the night to start an IV. Midline will be ordered. Blood pressure is elevated this morning most likely due to stress. Blood pressure 195/94, heart rate 88, pulse ox 97% on room air. Diet to be advanced to full liquids today, increase activity and continue IV antibiotics. 81: Patient is feeling a lot better today she denies any chest pain or shortness breath, she has no coughing she has no fever or chills, her stoma is working very well, she has less swelling both lower extremities today, she slept well yesterday, she has a mid line in the right upper extremity. 8/2: Doing much better today she denies any chest pain or shortness of breath, she has no abdominal pain, her pain is well-controlled, she is tolerating her regular diet very well, the plan is to transfer to extended care facility for IV anabiotic hopefully [facility] in the next 1 or 2 days. Objective - Vital Signs Vital signs: Vital Signs Temp 98.3 F 10/26/19 07:00 Pulse 76 10/26/19 08:00 Resp 16 10/26/19 08:00 BP 187/78 10/26/19 07:00 Pulse Ox 96 10/26/19 07:00 Intake & Output 10/25/19 10/26/19 10/26/19 18:59 06:59 18:59 Intake Total 740 160 Output Total 70 64 50 Balance 670 96 -50 Intake: Intake, IV Titration 260 160 Amount Piperacillin-Tazobactam 3 100 .375 gm In Sodium Chloride 0.9% 100 ml @ 25 mls/hr IVPB Q8HR [facility] Rx# :[id number] Sodium Chloride 0.9% 1, 160 160 000 ml @ 20 mls/hr IV . Q24H [facility] Rx#:[id number] Oral 480 Output: Drainage 20 14 Abdomen 20 14 Stool 50 50 50 Other: Voiding Method Toilet Toilet Toilet # Voids 3 1 - Exam - Exam Review of Systems Constitutional: Reports fatigue, Reports weakness, Denies chills, Denies fever Eyes: denies blurred vision, denies pain Ears, nose, mouth and throat: Denies headache, Denies nasal congestion, Denies nasal discharge, Denies sore throat, Denies vertigo Cardiovascular: Denies chest pain, Denies dyspnea on exertion, Denies leg edema, Denies shortness of breath, Denies syncope Respiratory: Denies cough, Denies cough with sputum, Denies dyspnea, Denies excessive sputum, Denies hemoptysis, Denies respiratory infections Gastrointestinal: Reports abdominal pain-improved, Reports change in bowel habits, denies diarrhea, denies loss of appetite, denies nausea, denies vomiting, Denies BRBPR, Denies hematemesis, Denies hematochezia, Denies melena, reports abdominal discomfort Genitourinary: Denies dysuria, Denies hematuria, Denies urgency, Denies urinary frequency Menstruation: Reports postmenopausal Musculoskeletal: Denies frequent falls, Denies gait dysfunction, Denies myalgias Integumentary: Denies pruritus, Denies rash, Denies wounds Neurological: Denies change in mentation, Denies change in speech, Denies gait dysfunction, Denies numbness, Denies seizures, Denies weakness Psychiatric: Denies anxiety, Denies depression Endocrine: Denies fatigue, Denies weight change Physical Examination - Constitutional General appearance: no distress, obese - EENT Eyes: anicteric sclerae, EOMI, PERRLA, no ptosis, no scleral icterus, normal appearance ENT: hearing grossly normal, NA/AT, normal oropharynx, no thrush Ears: bilateral: normal - Neck Neck: no lymphadenopathy, normal ROM, no rigidity, no stridor, no thyromegaly Carotids: bilateral: upstroke normal Thyroid: bilateral: normal size - Respiratory Respiratory: bilateral: diminished, wheezing, prolonged expiration, negative: dullness, rales, rhonchi Frequent moist cough - Cardiovascular Rhythm: regular Heart sounds: normal: S1, S2 Abnormal Heart Sounds: no systolic murmur, no rub, no S3 Gallop, no S4 Gallop, no click - Gastrointestinal General gastrointestinal: Hypoactive bowel sounds, soft, mild tenderness around surgical site. Ostomy in the left lower quadrant with gas in bag, dressing midline has dried blood with no active bleeding noted. JUAN JOSÉ drain with serosanguineous output. - Integumentary Integumentary: normal, normal turgor - Neurologic Neurologic: CNII-XII intact - Musculoskeletal Musculoskeletal: generalized weakness - Psychiatric Psychiatric: A&O x's 3, appropriate affect, intact judgment & insight - Labs CBC & Chem 7: 10/26/19 06:30 10/26/19 06:30 Labs: Abnormal Lab Results - Last 24 Hours (Table) 10/25/19 10/25/19 10/25/19 Range/Units 11:29 16:22 21:13 WBC (3.8-10.6) k/uL RBC (3.80-5.40) m/uL Hgb (11.4-16.0) gm/dL Hct (34.0-46.0) % Plt Count (150-450) k/uL Neutrophils # (1.3-7.7) k/uL Potassium (3.5-5.1) mmol/L Glucose (74-99) mg/dL POC Glucose (mg/dL) 141 H 160 H 125 H (75-99) mg/dL Calcium (8.4-10.2) mg/dL Magnesium (1.6-2.3) mg/dL ALT (4-34) U/L Alkaline Phosphatase (38-126) U/L Total Protein (6.3-8.2) g/dL Albumin (3.5-5.0) g/dL 10/26/19 10/26/19 10/26/19 Range/Units 06:30 06:30 06:56 WBC 10.8 H (3.8-10.6) k/uL RBC 3.37 L (3.80-5.40) m/uL Hgb 9.4 L (11.4-16.0) gm/dL Hct 30.0 L (34.0-46.0) % Plt Count 562 H (150-450) k/uL Neutrophils # 8.5 H (1.3-7.7) k/uL Potassium 2.9 L (3.5-5.1) mmol/L Glucose 133 H (74-99) mg/dL POC Glucose (mg/dL) 142 H (75-99) mg/dL Calcium 7.6 L (8.4-10.2) mg/dL Magnesium 1.5 L (1.6-2.3) mg/dL ALT 47 H (4-34) U/L Alkaline Phosphatase 135 H (38-126) U/L Total Protein 5.0 L (6.3-8.2) g/dL Albumin 3.0 L (3.5-5.0) g/dL Assessment and Plan Assessment: Assessment and Plan Plan: 1. Acute diverticulitis. Decrease IV fluid to KVO.. Diet advance to soft diet. Continue current pain management. Zofran for nausea and vomiting, IV Dilaudid for pain control, Reglan as needed. 2. Pneumoperitoneum and acute peritonitis secondary to perforated diverticulitis status post exploratory laparotomy and Dong procedure with Dr. Ontiveros. Continue Zosyn, Dilaudid 1 mg every 2 hours, Toradol as needed, Zofran for nausea. Reglan as needed. 3. Hypokalemia status post replacement. Continue to monitor and replace. 4. COPD without exacerbation. Continue albuterol nebulizer treatment as needed, DuoNeb treatment at bedtime, Symbicort 2 puffs twice daily. 5. Adrenal insufficiency disorder. Oral Cortef discontinued and patient placed on Solu-Cortef IV 50 mg every 8 hours. 6. History of Curtis granulomatosis. Continue steroids as above. 7. GERD. Continue Protonix 40 mg every day. 8. Hyperglycemia. CBG before meals and at bedtime, NovoLog scale. 9. Chronic tobacco use and dependence--patient quit July 2018. 10. Hypertension. Continue lisinopril 20 mg daily, discontinue hydrochlorothiazide 12.5 mg daily, IV hydralazine as needed. 11. Recurrent depression. Continue Cymbalta 20 mg daily 12. DVT prophylaxis. Heparin subcu 3 times daily. 13. COVID-19 infection not present. 14. GI prophylaxis. Continue patient on Protonix 40 mg orally once every day. 15. DVT Prophylaxis . Heparin 5000 units SC Q 8 H. 16. Plan for IV antibiotic at extended care facility like [facility] for the next 48 hours.
[2019-10-26] MEDS ORDERED: POTASSIUM CHLORIDE ER 20 MEQ TAB.ER PO STA (10:14)
[2019-10-26 11:42] LABS: Glucose,Whole Blood 121 mg/dL (75-99)
[2019-10-26] MEDS: MAGNESIUM SULFATE-D5W PMX 1 GM in DEXTROSE/WATER 1 100ML.BAG IVPB SCH ×2 (13:00→15:12)
[2019-10-26] MEDS: POTASSIUM CHLORIDE 20 MEQ in WATER FOR INJECTION 1 100ML.BAG IVPB SCH ×2 (13:04→15:11)
[2019-10-26 16:33] LABS: Glucose,Whole Blood 126 mg/dL (75-99)
[2019-10-26] MEDS: hydrALAZINE HCL 20 MG/ML 1 ML VIAL IVP PRN (17:41)
[2019-10-26 19:16] LABS: African American GFR (CKD) >90 (>60 ml/min/1.73 sqM); Anion Gap 9 mmol/L; Blood Urea Nitrogen 17 mg/dL (7-17); Calcium 8.3 mg/dL (8.4-10.2); Carbon Dioxide 25 mmol/L (22-30); Chloride 105 mmol/L (98-107); Glucose 118 mg/dL (74-99); Non-African American GFR(CKD) >90 (>60 ml/min/1.73 sqM); Sodium 139 mmol/L (137-145)
[2019-10-26 20:19] LABS: Glucose,Whole Blood 128 mg/dL (75-99)
[2019-10-26] MEDS: IPRATROPIUM-ALBUTEROL 3 ML NEB INHALATION SCH (20:21)
[2019-10-26] MEDS: LATANOPROST 0.005% OPHTH DROPS 2.5 ML BTL BOTH EYES SCH (20:28)
--- NOTE | 2019-10-27 00:14 | PN ---
PROGRESS NOTE DATE OF SERVICE: 10/26/2019 REASON FOR FOLLOWUP: Abdominal abscess from perforated diverticulitis. INTERVAL HISTORY: The patient is currently afebrile. The patient is breathing comfortably. The patient denies having any chest pain, no shortness of breath or cough. Overall, abdominal pain has improved. No nausea, no vomiting. PHYSICAL EXAMINATION: Blood pressure 172/81 with a pulse of 91, temperature 98.7. She is 98% on room air. General description is a middle-aged female up in the bed in no distress. RESPIRATORY SYSTEM: Unlabored breathing, clear to auscultation anteriorly. HEART: S1, S2. Regular rate and rhythm. ABDOMEN: Soft, mildly distended. No guarding or rigidity. LABS: Hemoglobin 9.4, white count 10.8, BUN of 16, creatinine 0.70. DIAGNOSTIC IMPRESSION AND PLAN: Patient with abdominal abscess from perforated sigmoid diverticulitis status post laparotomy and drainage of the abscess. Culture positive Klebsiella and Citrobacter. The patient wants to go to rehab. She will be switched over to cefepime 2 grams q.12 hours along with oral Flagyl for about 10 days and close outpatient followup. MMODL / IJN: [id number] /
[2019-10-27] MEDS: SODIUM CHLORIDE 0.9% 1,000 ML IV SCH (01:42)
[2019-10-27] MEDS: HYDROmorphone 1 MG/ML 1 ML SYRINGE IVP PRN ×5 (01:47→23:08)
[2019-10-27 06:47] LABS: Glucose,Whole Blood 134 mg/dL (75-99)
[2019-10-27] MEDS: HYDROCORTISONE SUCCINATE 100 MG/2 ML VIAL IV SCH ×2 (07:22→07:25)
[2019-10-27] MEDS: PIPERACILLIN-TAZOBACTAM 3.375 GM in SODIUM CHLORIDE 0.9% 100 ML IVPB SCH (07:22)
[2019-10-27] MEDS: HEPARIN SODIUM,PORCINE 5,000 UNIT/ML 1 ML VIAL SQ SCH ×3 (07:23→23:08)
[2019-10-27] MEDS: cycloSPORINE 0.05% OPHTH 0.4 ML DROPERETTE BOTH EYES SCH ×2 (07:23→20:37)
[2019-10-27] MEDS: INSULIN ASPART (NovoLOG) 100 UNIT/ML VIAL SQ SCH ×4 (07:23→20:28)
[2019-10-27] MEDS: lisinopriL 20 MG TAB PO SCH (07:24)
[2019-10-27] MEDS: PANTOPRAZOLE 40 MG TABLET PO SCH (07:24)
[2019-10-27] MEDS: DULoxetine HCL 20 MG CAPSULE.DR PO SCH (07:24)
[2019-10-27] MEDS: SIMETHICONE 40 MG/0.6 ML DROPS 2,000 MG/30 ML BOTTLE PO SCH ×4 (07:25→20:38)
[2019-10-27] MEDS: prednisoLONE ACETATE 1% OPHTH DROPS 5 ML BTL BOTH EYES SCH (07:25)
[2019-10-27] MEDS ORDERED: lisinopriL 20 MG TAB PO STA (07:39)
[2019-10-27 07:59] LABS: Basophils % (A) 0 %; Eosinophils % (A) 0 %; HCT 33.2 % (34.0-46.0); HGB 10.4 gm/dL (11.4-16.0); Hypochromasia Slight; Lymphocytes # (A) 1.9 k/uL (1.0-4.8); Lymphocytes % (A) 14 %; MCH 28.5 pg (25.0-35.0); MCHC 31.4 g/dL (31.0-37.0); MCV 90.5 fL (80.0-100.0); Mean Platelet Volume 7.1; Monocytes # (A) 0.5 k/uL (0-1.0); Monocytes % (A) 4 %; Neutrophils # (A) 11.1 k/uL (1.3-7.7); Neutrophils % (A) 81 %; Platelet Count 642 k/uL (150-450); RBC 3.67 m/uL (3.80-5.40); RDW 14.3 % (11.5-15.5); WBC 13.7 k/uL (3.8-10.6)
[2019-10-27 08:19] LABS: ALT 61 U/L (4-34); AST 47 U/L (14-36); African American GFR (CKD) >90 (>60 ml/min/1.73 sqM); Albumin 3.5 g/dL (3.5-5.0); Alkaline Phosphatase 138 U/L (38-126); Anion Gap 8 mmol/L; Blood Urea Nitrogen 15 mg/dL (7-17); Calcium 8.1 mg/dL (8.4-10.2); Carbon Dioxide 28 mmol/L (22-30); Chloride 103 mmol/L (98-107); Glucose 118 mg/dL (74-99); Magnesium 2.1 mg/dL (1.6-2.3); Non-African American GFR(CKD) >90 (>60 ml/min/1.73 sqM); Potassium 3.2 mmol/L (3.5-5.1); Sodium 139 mmol/L (137-145); Total Bilirubin 0.5 mg/dL (0.2-1.3); Total Protein 5.8 g/dL (6.3-8.2)
[2019-10-27] MEDS ORDERED: Potassium Replacement Protocol 1 EACH MISC MISCELLANE PRN (08:23)
[2019-10-27] MEDS: POTASSIUM CHLORIDE ER 20 MEQ TAB.ER PO SCH ×2 (08:30→10:21)
[2019-10-27] MEDS ORDERED: CEFEPIME 2 GM in SODIUM CHLORIDE 0.9% 100 ML IVPB ONE (09:00)
[2019-10-27] MEDS: SYMBICORT 160-4.5 MCG INHALER INHALATION SCH ×2 (09:41→19:54)
[2019-10-27 11:06] LABS: Glucose,Whole Blood 132 mg/dL (75-99)
--- NOTE | 2019-10-27 11:08 | P.DS ---
Providers Date of admission: 10/17/19 01:36 Expected date of discharge: 10/27/19 Attending physician: Connor Alvarez Consults: 10/17/19 07:26 Consult Physician Routine Consulting Provider: Michelle Ontiveros Consult Reason/Comments: diverticulitis Do you want consulting provider notified?: Yes 10/22/19 05:42 Consult Physician Routine Consulting Provider: Phillip Stone Consult Reason/Comments: Perforated diverticulitis/peritonitis Do you want consulting provider notified?: Yes [facility] Course: This is a 59-year-old female patient of Dr. Alvarez and Dr. Damico. with past medical history of diabetes mellitus type 2, Curtis granulomatosis, gastroesophageal reflux disease, hypertension. Patient presented to [facility] due to abdominal pain as well as diarrhea that it going on for 3 weeks. She has at least 1 loose stool daily. Yesterday she developed nausea and vomiting as well as lower abdominal pain. No fever or chills. No shortness of breath, chest pain, headache. Patient came into [facility] emergency center for evaluation and found to be afebrile, heart rate 90, blood pressure 153/81, pulse ox 94% on room air. WBC 14.7, hemoglobin 12.8, platelet count 385. Sodium 138, potassium 3.4, chloride 101, CO2 26, BUN 20 creatinine 0.94. Blood sugar 132. Lactic acid 1.5. Total bilirubin 0.5, AST 29, ALT 52, alkaline phosphatase 69. Lipase 1682. Urinalysis clear with nitrate and leukoesterase negative. CAT scan of the abdomen and pelvis with contrast revealed sigmoid diverticula with focal diverticulitis in the distal sigmoid colon. Normal appendix. Numerous nonobstructed bilateral renal calculi. Patient was given 1 L of IV fluids, Zofran, morphine with improvement of her pain and admitted to the MedSur floor. Consult with general surgery regarding diverticulitis. Patient is currently on clear liquid diet. COVID-19 testing in process. 10/17: Still complaining of increase pain in the abdomen today, there is no nausea or vomiting we will continue with IVF and we will change to add KCL , we will keep NPO , reevaluate in 24 hours, surgery consult appreciated, there is no chest pain or shortness of breath, no coughing, she has not had any bowel movements , she is passing gas. 10/18: Patient is laying down in bed she continues to have increased pain left lo wer quadrant, she continues to spit up some sputum, she has no chest pain or any shortness breath at this time, she has not had any bowel movement. She was started on clear liquid diet however she did not get anything yet beside water and ice, she seems clinically better she continues to be hypokalemic we will replace again. We will increase her IV fluids to 100 mL an hour. 10/19: Patient has been seen by Dr. Ontiveros this morning. She has had a few bowel movements in the past 24 hours. She states she has had no vomiting for greater than 24 hours since about 5:30 in the morning on Sunday which she relates to potassium. 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 She states she slept okay during the night. Repeat potassium today is at 3 and will be replaced. Repeat potassium and magnesium level to be done at 7 PM. IV fluids decreased to 75 mL per hour. Patient has been afebrile, heart rate 88, blood pressure 170/91, pulse ox 96% on room air. A repeat blood work reveals hemoglobin 9.9, WBC 7.9. Blood sugars running between 129 and 134. Creatinine 0.7. Anticipate probable discharge tomorrow. 10/20: The patient was anticipating discharge home today but she still had abdominal distention. Urgent Abdominal x-ray was ordered which did show significant amount of abdominal distention. Patient was made nothing by mouth and Dr. Ontiveros was contacted by Dr. Alvarez regarding concerns for perforation. Patient has been scheduled for exploratory laparotomy for today. Patient has been afebrile, heart rate 89, blood pressure 172/104. A repeat blood work reveals sodium 137, potassium 3.2, chloride 104, CO2 27, BUN 13 and creatinine 0.67. 10/21: Yesterday, patient underwent exploratory laparotomy and Dong procedure for perforated diverticulitis pneumoperitoneum. The patient is currently on Unasyn. Incentive spirometry and KRYSTAL hose will be added. Patient has JUAN JOSÉ drain in place with blood-tinged serous drainage. She is complaining of significant pain and Dilaudid increased frequency to every 2 hours. She is on clear liquids. Murray catheter is in place. She has been afebrile, heart rate 104, blood pressure 173/91, pulse ox 97% on room air. Capillary blood glucose running between 108 - 141. Repeat blood work reveals WBC 10, hemoglobin 11.1, platelet count 464. Sodium 138, potassium 3.0, chloride 102, CO2 28, BUN 13, creatinine 0.71. Blood cultures are in progress. 10/22: The patient was seen by Dr. Stone and antibiotics changed to Zosyn. Wound cultures gram-negative bacilli. Patient was seen by Droie Thomas yesterday for ostomy teaching. She is currently on clear liquid diet. Pain has been mostly 78 through the night. She does complain of some right-sided abdominal pain that is new over the last half hour. She complains of nausea and also lower extremity edema. Murray cath remains in place with good output. She has been afebrile, heart rate 104, blood pressure 173/79, pulse ox 95% on room air. Blood sugars running between 130s to 154. Potassium is 2.6 and being replaced and recheck potassium in the evening. WBC 10.9, hemoglobin 9.6. Solu-Cortef decrease to 50 mg IV every 8 hours. 10/23: Patient's pain is better controlled today. She is tolerating clear liquids and enjoying chicken broth this morning. There is gas in her colostomy bag. Murray is out and patient has been able to void on her own. JUAN JOSÉ drain remains in place with serosanguineous drainage. There is currently no IV access and patient was told multiple times during the night to start an IV. Midline will be ordered. Blood pressure is elevated this morning most likely due to stress. Blood pressure 195/94, heart rate 88, pulse ox 97% on room air. Diet to be advanced to full liquids today, increase activity and continue IV antibiotics. 8: Patient is feeling a lot better today she denies any chest pain or shortness breath, she has no coughing she has no fever or chills, her stoma is working very well, she has less swelling both lower extremities today, she slept well yesterday, she has a mid line in the right upper extremity. 8/2: Doing much better today she denies any chest pain or shortness of breath, she has no abdominal pain, her pain is well-controlled, she is tolerating her regular diet very well, the plan is to transfer to extended care facility for IV anabiotic hopefully [facility] in the next 1 or 2 days. 10/26: The patient is seen today in follow-up. She has been afebrile, heart rate 70, blood pressure 191/99 and pulse ox 98% on room air. Lisinopril increased for better blood pressure control. Repeat blood work reveals Dorie BC 13.7, hemoglobin 10.4, platelet count 642. Potassium 3.2 and will be replaced. Blood sugar 134. Total bilirubin 0.5, AST 47, ALT 61, alkaline phosphatase 138. She does have some right upper quadrant pain but this is improving. No nausea. Patient is tolerating regular diet. She has output of stool and gas from colostomy. JUAN JOSÉ drain remains in place. Patient did have a midline inserted last week which is functioning. Dr. Stone is recommending IV Zosyn for 2 week course at the senior care. Patient stated that she did not think she could manage IV antibiotics at home and also has increased weakness from being hospitalized and in bed during this admission. She is requesting subacute rehab. Discharge plan is to [facility]. Patient will be discharged once all arrangements are completed. Discharge diagnoses: 1. Acute diverticulitis. 2. Pneumoperitoneum and acute peritonitis secondary to perforated diverticulitis status post exploratory laparotomy and Dong procedure with Dr. Ontiveros. 3. Hypokalemia status post replacement. 4. COPD without exacerbation. 5. Adrenal insufficiency disorder. 6. History of Curtis granulomatosis. 7. GERD. 8. Hyperglycemia. 9. Chronic tobacco use and dependence--patient quit July 2018. 10. Hypertension. 11. Recurrent depression. 12. COVID-19 infection not present. Discharge plan: [facility] for subacute rehab and IV antibiotics Impression and plan of care have been directed as dictated by the signing physician. Lanette Mccarthy nurse practitioner acting as scribe for signing physician. Patient Condition at Discharge: Good Plan - Discharge Summary Discharge Rx Participant: No New Discharge Prescriptions: New prednisoLONE ACETATE 1% OPHTH [Pred Forte 1%] 1 drops BOTH EYES Q24H ml cycloSPORINE 0.05% OPHTH SOLN [Restasis] 1 drops BOTH EYES Q12HR droperette Latanoprost Ophth [Xalatan 0.005%] 1 drops BOTH EYES HS ml lisinopriL [Zestril] 40 mg PO DAILY #60 tab Hydrocodone/Acetaminophen [[place] 5-325] 1 tab PO Q6HR PRN 3 Days #12 tab PRN Reason: Pain Piperacillin-Tazobactam [Zosyn] 3.375 gm IVPB Q6H #84 bag Continue Pantoprazole Sodium [Protonix] 40 mg PO DAILY Calcium Carbonate/Vitamin D3 [Calcium 600-Vit D3 200 Tablet] 1 tab PO BID Hydrocortisone 25 mg PO DAILY Hydrocortisone [Cortef] 15 mg PO DAILY@1500 Budesonide-Formot 160-4.5 Mcg [Symbicort 160-4.5 Mcg Inhaler] 2 puff INHALATION RT-BID Cholecalciferol [Vitamin D3 (25 Mcg = 1000 Iu)] 5,000 unit PO DAILY DULoxetine HCL [Cymbalta] 20 mg PO DAILY Hydrochlorothiazide [hydroCHLOROthiazide] 12.5 mg PO DAILY Albuterol Sulfate [Ventolin HFA] 2 puff INHALATION RT-Q4H PRN PRN Reason: Shortness Of Breath Ipratropium-Albuterol Nebulize [Duoneb 0.5 mg-3 mg/3 ml Soln] 3 ml INHALATION RT-HS Discontinued Ondansetron HCl [Zofran] 4 mg PO BID PRN PRN Reason: Nausea And Vomiting lisinopriL 20 mg PO DAILY Mirabegron [Myrbetriq] 50 mg PO DAILY Ibuprofen 600 mg PO TID Nature's Plus Ultra Juice Greens 1 tab PO BID Discharge Medication List Pantoprazole Sodium [Protonix] 40 mg PO DAILY 08/22/18 [History] Calcium Carbonate/Vitamin D3 [Calcium 600-Vit D3 200 Tablet] 1 tab PO BID 01/05/19 [History] Hydrocortisone 25 mg PO DAILY 06/06/19 [History] Hydrocortisone [Cortef] 15 mg PO DAILY@1500 06/06/19 [History] Budesonide-Formot 160-4.5 Mcg [Symbicort 160-4.5 Mcg Inhaler] 2 puff INHALATION RT-BID 06/09/19 [History] Albuterol Sulfate [Ventolin HFA] 2 puff INHALATION RT-Q4H PRN 10/16/19 [History] Cholecalciferol [Vitamin D3 (25 Mcg = 1000 Iu)] 5,000 unit PO DAILY 10/16/19 [History] DULoxetine HCL [Cymbalta] 20 mg PO DAILY 10/16/19 [History] Hydrochlorothiazide [hydroCHLOROthiazide] 12.5 mg PO DAILY 10/16/19 [History] Ipratropium-Albuterol Nebulize [Duoneb 0.5 mg-3 mg/3 ml Soln] 3 ml INHALATION RT-HS 10/16/19 [History] Hydrocodone/Acetaminophen [[place] 5-325] 1 tab PO Q6HR PRN 3 Days #12 tab 10/27/19 [Rx] Latanoprost Ophth [Xalatan 0.005%] 1 drops BOTH EYES HS ml 10/27/19 [Rx] Piperacillin-Tazobactam [Zosyn] 3.375 gm IVPB Q6H #84 bag 10/27/19 [Rx] cycloSPORINE 0.05% OPHTH SOLN [Restasis] 1 drops BOTH EYES Q12HR droperette 10/27/19 [Rx] lisinopriL [Zestril] 40 mg PO DAILY #60 tab 10/27/19 [Rx] prednisoLONE ACETATE 1% OPHTH [Pred Forte 1%] 1 drops BOTH EYES Q24H ml 10/27/19 [Rx] Follow up Appointment(s)/Referral(s): Greta James MD [STAFF PHYSICIAN] - 11/04/19 10:00 am [facility], [NON-STAFF] - Connor Alvarez MD [Primary Care Provider] - 1 Week (at [facility]) Michelle Ontiveros DO [Doctor of Osteopathic Medicine] - 1 Week Phillip Stone MD [STAFF PHYSICIAN] - 2 Weeks Patient Instructions/Handouts: Diverticulitis (ED), Colostomy Care (GEN), Diverticulitis Diet (ED) Activity/Diet/Wound Care/Special Instructions: Colostomy care recommendations for Home Date of last pouching system change: [facility] is supplying Ms Carlisle the following osotmy care supplies for home as follows: Convatec one piece cut to fit system #[id number] (three for home) No sting prep pads (12) Tuan seal (4) from home Apply to skin crease area on abdomen prior application of pouching system Ostomy powder (1) Please note Coloplast #[id number] pouching system with filter (3) sent home with patient in the event flat pouching system does nto provide a sealed system Ms Carlisle is the empty the pouching system when it is 1/3 to 1/2 full Change the entire pouching system every 3-5 days Please take antibiotic as directed. Take Tylenol 3 as needed for pain. Do not drive or operate machinery while taking this. Take Zofran as needed for nausea. Follow up with primary care provider to repeat your labs including a lipase. Follow-up with GI about diverticulitis. Return to the emergency room for any worsening symptoms. [place] on [phone]: for transportation and Meals on Wheels Discharge Disposition: TRANSFER TO SNF/ECF
--- NOTE | 2019-10-27 12:05 | PN ---
PROGRESS NOTE DATE OF SERVICE: 10/27/2019 REASON FOR FOLLOWUP: Abdominal abscess from ruptured diverticulitis. INTERVAL HISTORY: Patient is currently afebrile, patient is breathing comfortably. Patient has been complaining of abdominal pain mostly on the right side and did have an episode of vomiting. No chest pain, shortness of breath or cough. Did have output in her colostomy bag. PHYSICAL EXAMINATION: Blood pressure 191/90 with a pulse of 78, temperature of 99.6. She is 98% on room air. General description is a middle-aged female, up in the bed in no distress. RESPIRATORY SYSTEM: Unlabored breathing, clear to auscultation anteriorly. HEART: S1, S2. Regular rate and rhythm. ABDOMEN: Soft, mildly distended. No guarding or rigidity. LABS: Hemoglobin is 10.4, white count of 13.7, BUN 15, creatinine 0.63. DIAGNOSTIC IMPRESSION AND PLAN: Patient with an abdominal abscess, culture positive for Citrobacter and Klebsiella in this patient currently on Zosyn unfortunate allergy to [place] Flagyl. So, we cannot use the cefepime Flagyl combination med continue with Zosyn for another 2 weeks and close outpatient followup. MMODL / IJN: [id number] /
--- NOTE | 2019-10-27 12:51 | P.PN ---
Subjective Progress Note Date: 10/27/19 Patient seen and examined at bedside. States that she is overall doing well with some pain around the JUAN JOSÉ insertion site. She is having ostomy function. Objective - Vital Signs Vital signs: Vital Signs Temp 99.6 F 10/27/19 07:00 Pulse 78 10/27/19 07:00 Resp 18 10/27/19 07:00 BP 191/99 10/27/19 07:00 Pulse Ox 98 10/27/19 07:00 Intake & Output 10/26/19 10/27/19 10/27/19 18:59 06:59 18:59 Intake Total 810 565 Output Total 130 20 Balance 680 545 Intake: Intake, IV Titration 460 Amount Magnesium Sulfate-D5w Pmx 100 1 gm In Dextrose/Water 1 100ml.bag @ 100 mls/hr IVPB Q1H MICHAEL Rx#: [id number] Piperacillin-Tazobactam 3 100 .375 gm In Sodium Chloride 0.9% 100 ml @ 25 mls/hr IVPB Q8HR MICHAEL Rx# :[id number] Potassium Chloride 20 meq 100 In Water For Injection 1 100ml.bag @ 50 mls/hr IVPB Q2H MICHAEL Rx#: [id number] Sodium Chloride 0.9% 1, 160 000 ml @ 20 mls/hr IV . Q24H MICHAEL Rx#:[id number] Oral 350 565 Output: Drainage 30 20 Abdomen 30 20 Stool 100 Other: Voiding Method Toilet Toilet # Voids 4 # Bowel Movements 1 1 - Constitutional General appearance: Present: cooperative, no acute distress - Gastrointestinal Gastrointestinal Comment(s): Soft, no significant tenderness, nondistended, no rebound, no guarding, midline incision site healing well. JUAN JOSÉ drain in place With serosanguineous output, ostomy is patent with some edema - Musculoskeletal Musculoskeletal: Present: generalized weakness - Psychiatric Psychiatric: Present: A&O x's 3 - Labs CBC & Chem 7: 10/27/19 06:57 10/27/19 06:57 Labs: Abnormal Lab Results - Last 24 Hours (Table) 10/26/19 10/26/19 10/26/19 Range/Units 16:30 18:00 20:17 WBC (3.8-10.6) k/uL RBC (3.80-5.40) m/uL Hgb (11.4-16.0) gm/dL Hct (34.0-46.0) % Plt Count (150-450) k/uL Neutrophils # (1.3-7.7) k/uL Potassium (3.5-5.1) mmol/L Glucose 118 H (74-99) mg/dL POC Glucose (mg/dL) 126 H 128 H (75-99) mg/dL Calcium 8.3 L (8.4-10.2) mg/dL AST (14-36) U/L ALT (4-34) U/L Alkaline Phosphatase (38-126) U/L Total Protein (6.3-8.2) g/dL 10/27/19 10/27/19 10/27/19 Range/Units 06:47 06:57 06:57 WBC 13.7 H (3.8-10.6) k/uL RBC 3.67 L (3.80-5.40) m/uL Hgb 10.4 L (11.4-16.0) gm/dL Hct 33.2 L (34.0-46.0) % Plt Count 642 H (150-450) k/uL Neutrophils # 11.1 H (1.3-7.7) k/uL Potassium 3.2 L (3.5-5.1) mmol/L Glucose 118 H (74-99) mg/dL POC Glucose (mg/dL) 134 H (75-99) mg/dL Calcium 8.1 L (8.4-10.2) mg/dL AST 47 H (14-36) U/L ALT 61 H (4-34) U/L Alkaline Phosphatase 138 H (38-126) U/L Total Protein 5.8 L (6.3-8.2) g/dL 10/27/19 Range/Units 11:04 WBC (3.8-10.6) k/uL RBC (3.80-5.40) m/uL Hgb (11.4-16.0) gm/dL Hct (34.0-46.0) % Plt Count (150-450) k/uL Neutrophils # (1.3-7.7) k/uL Potassium (3.5-5.1) mmol/L Glucose (74-99) mg/dL POC Glucose (mg/dL) 132 H (75-99) mg/dL Calcium (8.4-10.2) mg/dL AST (14-36) U/L ALT (4-34) U/L Alkaline Phosphatase (38-126) U/L Total Protein (6.3-8.2) g/dL Microbiology - Last 24 Hours (Table) 10/21/19 14:16 Gram Stain - Final Abdomen Wound Culture - Final Citrobacter freundii Klebsiella pneumoniae Assessment and Plan (1) Diverticulitis Narrative/Plan: 59-year-old female postoperative, exploratory laparotomy and Matos's procedure secondary to perforated diverticulitis - Ostomy nurse has been consulted for ostomy education, she has met with the patient - Continue IV antibiotics, ID has been consultation. Appreciate recommendations - Continue diet as tolerated - Pain control with narcotic pain medication and Toradol - Increase activity - Continue medical care for medical comorbidities. I discussed this in depth with the patient. There is significant concern about wound healing and postoperative infection secondary to the patient's history of chronic steroid use along with Rituxan use for Daniel's. She states that her last Rituxan dose was in April of this year. We will closely monitor the patient's progress with wound healing and for postoperative infection based on her clinical progress. - Will continue to follow and make recommendations based on the patient's clinical progress. Current Visit: Yes Status: Acute Code(s): K57.92 - DVTRCLI OF INTEST, PART UNSP, W/O PERF OR ABSCESS W/O BLEED SNOMED Code(s): 467403660
[2019-10-27] MEDS: HYDROCORTISONE 10 MG TAB PO SCH (15:28)
--- NOTE | 2019-10-27 15:49 | P.PN ---
Subjective Progress Note Date: 10/27/19 This is a 59-year-old female patient of Dr. Alvarez and Dr. Damico. with past medical history of diabetes mellitus type 2, Curtis granulomatosis, gastroesophageal reflux disease, hypertension. Patient presented to [facility] due to abdominal pain as well as diarrhea that it going on for 3 weeks. She has at least 1 loose stool daily. Yesterday she developed nausea and vomiting as well as lower abdominal pain. No fever or chills. No shortness of breath, chest pain, headache. Patient came into [facility] emergency center for evaluation and found to be afebrile, heart rate 90, blood pressure 153/81, pulse ox 94% on room air. WBC 14.7, hemoglobin 12.8, platelet count 385. Sodium 138, potassium 3.4, chloride 101, CO2 26, BUN 20 creatinine 0.94. Blood sugar 132. Lactic acid 1.5. Total bilirubin 0.5, AST 29, ALT 52, alkaline phosphatase 69. Lipase 1682. Urinalysis clear with nitrate and leukoesterase negative. CAT scan of the abdomen and pelvis with contrast revealed sigmoid diverticula with focal diverticulitis in the distal sigmoid colon. Normal appendix. Numerous nonobstructed bilateral renal calculi. Patient was given 1 L of IV fluids, Zofran, morphine with improvement of her pain and [facility]. Consult with general surgery regarding diverticulitis. Patient is currently on clear liquid diet. COVID-19 testing in process. 10/17: Still complaining of increase pain in the abdomen today, there is no nausea or vomiting we will continue with IVF and we will change to add KCL , we will keep NPO , reevaluate in 24 hours, surgery consult appreciated, there is no chest pain or shortness of breath, no coughing, she has not had any bowel movements , she is passing gas. 10/18: Patient is laying down in bed she continues to have increased pain left lower quadrant, she continues to spit up some sputum, she has no chest pain or any shortness breath at this time, she has not had any bowel movement. She was started on clear liquid diet however she did not get anything yet beside water and ice, she seems clinically better she continues to be hypokalemic we will replace again. We will increase her IV fluids to 100 mL an hour. 10/19: Patient has been seen by Dr. Ontiveros this morning. She has had a few bowel movements in the past 24 hours. She states she has had no vomiting for greater than 24 hours since about 5:30 in the morning on Sunday which she relates to potassium. Her abdomen is continuous still operator with bloating but much improved. She states she slept okay during the night. Repeat potassium today is at 3 and will be replaced. Repeat potassium and magnesium level to be done at 7 PM. IV fluids decreased to 75 mL per hour. Patient has been afebrile, heart rate 88, blood pressure 170/91, pulse ox 96% on room air. A repeat blood work reveals hemoglobin 9.9, WBC 7.9. Blood sugars running between 129 and 134. Creatinine 0.7. Anticipate probable discharge tomorrow. 10/20: The patient was anticipating discharge home today but she still had abdominal distention. Urgent Abdominal x-ray was ordered which did show significant amount of abdominal distention. Patient was made nothing by mouth and Dr. Ontiveros was contacted by Dr. Alvarez regarding concerns for perforation. Patient has been scheduled for exploratory laparotomy for today. Patient has been afebrile, heart rate 89, blood pressure 172/104. A repeat blood work reveals sodium 137, potassium 3.2, chloride 104, CO2 27, BUN 13 and creatinine 0.67. 10/21: Yesterday, patient underwent exploratory laparotomy and Dong procedure for perforated diverticulitis pneumoperitoneum. The patient is currently on Unasyn. Incentive spirometry and KRYSTAL hose will be added. Patient has JUAN JOSÉ drain in place with blood-tinged serous drainage. She is complaining of significant pain and Dilaudid increased frequency to every 2 hours. She is on clear liquids. Murray catheter is in place. She has been afebrile, heart rate 104, blood pressure 173/91, pulse ox 97% on room air. Capillary blood glucose running between 108 - 141. Repeat blood work reveals WBC 10, hemoglobin 11.1, platelet count 464. Sodium 138, potassium 3.0, chloride 102, CO2 28, BUN 13, creatinine 0.71. Blood cultures are in progress. 10/22: The patient was seen by Dr. Stone and antibiotics changed to Zosyn. Wound cultures gram-negative bacilli. Patient was seen by Dorie Thomas yesterday for ostomy teaching. She is currently on clear liquid diet. Pain has been mostly 78 through the night. She does complain of some right-sided abdominal pain that is new over the last half hour. She complains of nausea and also lower extremity edema. Murray cath remains in place with good output. She has been afebrile, heart rate 104, blood pressure 173/79, pulse ox 95% on room air. Blood sugars running between 130s to 154. Potassium is 2.6 and being replaced and recheck potassium in the evening. WBC 10.9, hemoglobin 9.6. Solu-Cortef decrease to 50 mg IV every 8 hours. 10/23: Patient's pain is better controlled today. She is tolerating clear liquids and enjoying chicken broth this morning. There is gas in her colostomy bag. Murray is out and patient has been able to void on her own. JUAN JOSÉ drain remains in place with serosanguineous drainage. There is currently no IV access and patient was told multiple times during the night to start an IV. Midline will be ordered. Blood pressure is elevated this morning most likely due to stress. Blood pressure 195/94, heart rate 88, pulse ox 97% on room air. Diet to be advanced to full liquids today, increase activity and continue IV antibiotics. 81: Patient is feeling a lot better today she denies any chest pain or shortness breath, she has no coughing she has no fever or chills, her stoma is working very well, she has less swelling both lower extremities today, she slept well yesterday, she has a mid line in the right upper extremity. 82: Doing much better today she denies any chest pain or shortness of breath, she has no abdominal pain, her pain is well-controlled, she is tolerating her regular diet very well, the plan is to transfer to extended care facility for IV anabiotic hopefully [facility] in the next 1 or 2 days. 10/26: The patient is seen today in follow-up. She has been afebrile, heart rate 70, blood pressure 191/99 and pulse ox 98% on room air. Lisinopril increased for better blood pressure control. Repeat blood work reveals WBC 13.7, hemoglobin 10.4, platelet count 642. Potassium 3.2 and will be replaced. Blood sugar 134. Total bilirubin 0.5, AST 47, ALT 61, alkaline phosphatase 138. She does have some right upper quadrant pain but this is improving. No nausea. Patient is tolerating regular diet. She has output of stool and gas from colostomy. JUAN JOSÉ drain remains in place. Patient did have a midline inserted last week which is functioning. Dr. Stone is recommending IV Zosyn for 2 week course at the halfway. Patient stated that she did not think she could manage IV antibiotics at home and also has increased weakness from being hospitalized and in bed during this admission. She is requesting subacute rehab. Discharge plan is to [facility]. Patient will be discharged once all arrangements are completed. Objective - Vital Signs Vital signs: Vital Signs Temp 98.9 F 10/27/19 14:27 Pulse 96 10/27/19 14:27 Resp 18 10/27/19 14:27 BP 168/79 10/27/19 14:27 Pulse Ox 96 10/27/19 14:27 Intake & Output 10/26/19 10/27/19 10/27/19 18:59 06:59 18:59 Intake Total 810 565 Output Total 130 20 Balance 680 545 Intake: Intake, IV Titration 460 Amount Magnesium Sulfate-D5w Pmx 100 1 gm In Dextrose/Water 1 100ml.bag @ 100 mls/hr IVPB Q1H MICHAEL Rx#: [id number] Piperacillin-Tazobactam 3 100 .375 gm In Sodium Chloride 0.9% 100 ml @ 25 mls/hr IVPB Q8HR MICHAEL Rx# :[id number] Potassium Chloride 20 meq 100 In Water For Injection 1 100ml.bag @ 50 mls/hr IVPB Q2H MICHAEL Rx#: [id number] Sodium Chloride 0.9% 1, 160 000 ml @ 20 mls/hr IV . Q24H MICHAEL Rx#:[id number] Oral 350 565 Output: Drainage 30 20 Abdomen 30 20 Stool 100 Other: Voiding Method Toilet Toilet # Voids 4 # Bowel Movements 1 1 - Exam Review of Systems Constitutional: Reports fatigue, Reports weakness, Denies chills, Denies fever Eyes: denies blurred vision, denies pain Ears, nose, mouth and throat: Denies headache, Denies nasal congestion, Denies nasal discharge, Denies sore throat, Denies vertigo Cardiovascular: Denies chest pain, Denies dyspnea on exertion, Denies leg edema, Denies shortness of breath, Denies syncope Respiratory: Denies cough, Denies cough with sputum, Denies dyspnea, Denies excessive sputum, Denies hemoptysis, Denies respiratory infections Gastrointestinal: Reports abdominal pain-improved, Reports change in bowel habits, denies diarrhea, denies loss of appetite, denies nausea, denies vomiting, Denies BRBPR, Denies hematemesis, Denies hematochezia, Denies melena, reports abdominal discomfort Genitourinary: Denies dysuria, Denies hematuria, Denies urgency, Denies urinary frequency Menstruation: Reports postmenopausal Musculoskeletal: Denies frequent falls, Denies gait dysfunction, Denies myalgias Integumentary: Denies pruritus, Denies rash, Denies wounds Neurological: Denies change in mentation, Denies change in speech, Denies gait dysfunction, Denies numbness, Denies seizures, Denies weakness Psychiatric: Denies anxiety, Denies depression Endocrine: Denies fatigue, Denies weight change Physical Examination - Constitutional General appearance: no distress, obese - EENT Eyes: anicteric sclerae, EOMI, PERRLA, no ptosis, no scleral icterus, normal appearance ENT: hearing grossly normal, NA/AT, normal oropharynx, no thrush Ears: bilateral: normal - Neck Neck: no lymphadenopathy, normal ROM, no rigidity, no stridor, no thyromegaly Carotids: bilateral: upstroke normal Thyroid: bilateral: normal size - Respiratory Respiratory: bilateral: diminished, wheezing, prolonged expiration, negative: dullness, rales, rhonchi Frequent moist cough - Cardiovascular Rhythm: regular Heart sounds: normal: S1, S2 Abnormal Heart Sounds: no systolic murmur, no rub, no S3 Gallop, no S4 Gallop, no click - Gastrointestinal General gastrointestinal: Hypoactive bowel sounds, soft, mild tenderness around surgical site. Ostomy in the left lower quadrant with stool and gas gas in bag, dressing midline has dried blood with no active bleeding noted. JUAN JOSÉ drain with serosanguineous output. - Integumentary Integumentary: normal, normal turgor - Neurologic Neurologic: CNII-XII intact - Musculoskeletal Musculoskeletal: generalized weakness - Psychiatric Psychiatric: A&O x's 3, appropriate affect, intact judgment & insight - Labs CBC & Chem 7: 10/27/19 06:57 10/27/19 06:57 Labs: Abnormal Lab Results - Last 24 Hours (Table) 10/26/19 10/26/19 10/26/19 Range/Units 16:30 18:00 20:17 WBC (3.8-10.6) k/uL RBC (3.80-5.40) m/uL Hgb (11.4-16.0) gm/dL Hct (34.0-46.0) % Plt Count (150-450) k/uL Neutrophils # (1.3-7.7) k/uL Potassium (3.5-5.1) mmol/L Glucose 118 H (74-99) mg/dL POC Glucose (mg/dL) 126 H 128 H (75-99) mg/dL Calcium 8.3 L (8.4-10.2) mg/dL AST (14-36) U/L ALT (4-34) U/L Alkaline Phosphatase (38-126) U/L Total Protein (6.3-8.2) g/dL 10/27/19 10/27/19 10/27/19 Range/Units 06:47 06:57 06:57 WBC 13.7 H (3.8-10.6) k/uL RBC 3.67 L (3.80-5.40) m/uL Hgb 10.4 L (11.4-16.0) gm/dL Hct 33.2 L (34.0-46.0) % Plt Count 642 H (150-450) k/uL Neutrophils # 11.1 H (1.3-7.7) k/uL Potassium 3.2 L (3.5-5.1) mmol/L Glucose 118 H (74-99) mg/dL POC Glucose (mg/dL) 134 H (75-99) mg/dL Calcium 8.1 L (8.4-10.2) mg/dL AST 47 H (14-36) U/L ALT 61 H (4-34) U/L Alkaline Phosphatase 138 H (38-126) U/L Total Protein 5.8 L (6.3-8.2) g/dL 10/27/19 Range/Units 11:04 WBC (3.8-10.6) k/uL RBC (3.80-5.40) m/uL Hgb (11.4-16.0) gm/dL Hct (34.0-46.0) % Plt Count (150-450) k/uL Neutrophils # (1.3-7.7) k/uL Potassium (3.5-5.1) mmol/L Glucose (74-99) mg/dL POC Glucose (mg/dL) 132 H (75-99) mg/dL Calcium (8.4-10.2) mg/dL AST (14-36) U/L ALT (4-34) U/L Alkaline Phosphatase (38-126) U/L Total Protein (6.3-8.2) g/dL Microbiology - Last 24 Hours (Table) 10/21/19 14:16 Gram Stain - Final Abdomen Wound Culture - Final Citrobacter freundii Klebsiella pneumoniae Assessment and Plan Plan: 1. Acute diverticulitis. IV fluids decreased to 50 per hour. Diet advance to regular. Continue current pain management. Zofran for nausea and vomiting, IV Dilaudid for pain control, Reglan as needed. 2. Pneumoperitoneum and acute peritonitis secondary to perforated diverticulitis status post exploratory laparotomy and Dong procedure with Dr. Ontiveros. Continue Zosyn, Dilaudid 1 mg every 2 hours, Toradol as needed, Zofran for nausea. Reglan as needed. 3. Hypokalemia status post replacement. Continue to monitor and replace. 4. COPD without exacerbation. Continue albuterol nebulizer treatment as needed, DuoNeb treatment at bedtime, Symbicort 2 puffs twice daily. 5. Adrenal insufficiency disorder. Oral Cortef discontinued and patient placed on Solu-Cortef IV 50 mg every 8 hours. 6. History of Curtis granulomatosis. Continue steroids as above. 7. GERD. Continue Protonix 40 mg every day. 8. Hyperglycemia. CBG before meals and at bedtime, NovoLog scale. 9. Chronic tobacco use and dependence--patient quit July 2018. 10. Hypertension. Continue lisinopril 20 mg daily, discontinue hydrochlorothiazide 12.5 mg daily, IV hydralazine as needed. 11. Recurrent depression. Continue Cymbalta 20 mg daily 12. DVT prophylaxis. Heparin subcu 3 times daily. 13. COVID-19 infection not present. 14. GI prophylaxis. Continue patient on Protonix 40 mg orally once every day. 15. DVT Prophylaxis . Heparin 5000 units SC Q 8 H. Discharge plan: Jv tomorrow. Repeat Covid testing Impression and plan of care have been directed as dictated by the signing physician. Lanette Mccarthy nurse practitioner acting as scribe for signing physician.
[2019-10-27 16:16] LABS: Glucose,Whole Blood 135 mg/dL (75-99)
[2019-10-27] MEDS: hydrALAZINE HCL 20 MG/ML 1 ML VIAL IVP PRN (19:32)
[2019-10-27] MEDS: IPRATROPIUM-ALBUTEROL 3 ML NEB INHALATION SCH (19:54)
[2019-10-27 20:22] LABS: Glucose,Whole Blood 115 mg/dL (75-99)
[2019-10-27] MEDS: CEFEPIME 2 GM in SODIUM CHLORIDE 0.9% 100 ML IVPB SCH (20:37)
[2019-10-27] MEDS: METOPROLOL TARTRATE 25 MG TAB PO SCH (20:38)
[2019-10-27] MEDS: LATANOPROST 0.005% OPHTH DROPS 2.5 ML BTL BOTH EYES SCH (20:38)
--- NOTE | 2019-10-27 21:43 | P.PN ---
Subjective Progress Note Date: 10/26/19 Patient doing well, stool and gas reported in bag, tolerating diet Objective - Vital Signs Vital signs: Vital Signs Temp 98.9 F 10/27/19 14:27 Pulse 96 10/27/19 14:27 Resp 18 10/27/19 14:27 BP 168/79 10/27/19 14:27 Pulse Ox 96 10/27/19 14:27 Intake & Output 10/27/19 10/27/19 10/28/19 06:59 18:59 06:59 Intake Total 565 Output Total 20 Balance 545 Intake: Oral 565 Output: Drainage 20 Abdomen 20 Other: Voiding Method Toilet # Bowel Movements 1 - Constitutional General appearance: Present: cooperative - Respiratory Details: Nonlabored - Cardiovascular Rhythm: regular - Gastrointestinal Gastrointestinal Comment(s): S/ND ostomy pink and patent, Incision CDI - Labs CBC & Chem 7: 10/27/19 06:57 10/27/19 06:57 Labs: Abnormal Lab Results - Last 24 Hours (Table) 10/27/19 10/27/19 10/27/19 Range/Units 06:47 06:57 06:57 WBC 13.7 H (3.8-10.6) k/uL RBC 3.67 L (3.80-5.40) m/uL Hgb 10.4 L (11.4-16.0) gm/dL Hct 33.2 L (34.0-46.0) % Plt Count 642 H (150-450) k/uL Neutrophils # 11.1 H (1.3-7.7) k/uL Potassium 3.2 L (3.5-5.1) mmol/L Glucose 118 H (74-99) mg/dL POC Glucose (mg/dL) 134 H (75-99) mg/dL Calcium 8.1 L (8.4-10.2) mg/dL AST 47 H (14-36) U/L ALT 61 H (4-34) U/L Alkaline Phosphatase 138 H (38-126) U/L Total Protein 5.8 L (6.3-8.2) g/dL 10/27/19 10/27/19 10/27/19 Range/Units 11:04 16:15 20:20 WBC (3.8-10.6) k/uL RBC (3.80-5.40) m/uL Hgb (11.4-16.0) gm/dL Hct (34.0-46.0) % Plt Count (150-450) k/uL Neutrophils # (1.3-7.7) k/uL Potassium (3.5-5.1) mmol/L Glucose (74-99) mg/dL POC Glucose (mg/dL) 132 H 135 H 115 H (75-99) mg/dL Calcium (8.4-10.2) mg/dL AST (14-36) U/L ALT (4-34) U/L Alkaline Phosphatase (38-126) U/L Total Protein (6.3-8.2) g/dL Assessment and Plan Assessment: s/p napoleonmanns Plan: Diet as tolerated. encouraged IS and ambulation
[2019-10-28] MEDS: HYDROmorphone 1 MG/ML 1 ML SYRINGE IVP PRN ×3 (02:17→08:37)
[2019-10-28] MEDS: METOCLOPRAMIDE 5 MG/ML 2 ML VIAL IVP PRN ×2 (06:25→12:59)
[2019-10-28 06:49] LABS: Glucose,Whole Blood 98 mg/dL (75-99)
[2019-10-28] MEDS: SYMBICORT 160-4.5 MCG INHALER INHALATION SCH ×2 (08:09→18:59)
--- NOTE | 2019-10-28 08:17 | P.PN ---
Subjective Progress Note Date: 10/28/19 This is a 59-year-old female patient of Dr. Alvarez and Dr. Damico. with past medical history of diabetes mellitus type 2, Curtis granulomatosis, gastroesophageal reflux disease, hypertension. Patient presented to [facility] due to abdominal pain as well as diarrhea that it going on for 3 weeks. She has at least 1 loose stool daily. Yesterday she developed nausea and vomiting as well as lower abdominal pain. No fever or chills. No shortness of breath, chest pain, headache. Patient came into [facility] emergency center for evaluation and found to be afebrile, heart rate 90, blood pressure 153/81, pulse ox 94% on room air. WBC 14.7, hemoglobin 12.8, platelet count 385. Sodium 138, potassium 3.4, chloride 101, CO2 26, BUN 20 creatinine 0.94. Blood sugar 132. Lactic acid 1.5. Total bilirubin 0.5, AST 29, ALT 52, alkaline phosphatase 69. Lipase 1682. Urinalysis clear with nitrate and leukoesterase negative. CAT scan of the abdomen and pelvis with contrast revealed sigmoid diverticula with focal diverticulitis in the distal sigmoid colon. Normal appendix. Numerous nonobstructed bilateral renal calculi. Patient was given 1 L of IV fluids, Zofran, morphine with improvement of her pain and [facility] Consult with general surgery regarding diverticulitis. Patient is currently on clear liquid diet. COVID-19 testing in process. 10/17: Still complaining of increase pain in the abdomen today, there is no nausea or vomiting we will continue with IVF and we will change to add KCL , we will keep NPO , reevaluate in 24 hours, surgery consult appreciated, there is no chest pain or shortness of breath, no coughing, she has not had any bowel movements , she is passing gas. 10/18: Patient is laying down in bed she continues to have increased pain left lower quadrant, she continues to spit up some sputum, she has no chest pain or any shortness breath at this time, she has not had any bowel movement. She was started on clear liquid diet however she did not get anything yet beside water and ice, she seems clinically better she continues to be hypokalemic we will replace again. We will increase her IV fluids to 100 mL an hour. 10/19: Patient has been seen by Dr. Ontiveros this morning. She has had a few bowel movements in the past 24 hours. She states she has had no vomiting for greater than 24 hours since about 5:30 in the morning on Sunday which she relates to potassium. Her abdomen is steam drier tender with bloating but much improved. She states she slept okay during the night. Repeat potassium today is at 3 and will be replaced. Repeat potassium and magnesium level to be done at 7 PM. IV fluids decreased to 75 mL per hour. Patient has been afebrile, heart rate 88, blood pressure 170/91, pulse ox 96% on room air. A repeat blood work reveals hemoglobin 9.9, WBC 7.9. Blood sugars running between 129 and 134. Creatinine 0.7. Anticipate probable discharge tomorrow. 10/20: The patient was anticipating discharge home today but she still had abdominal distention. Urgent Abdominal x-ray was ordered which did show significant amount of abdominal distention. Patient was made nothing by mouth and Dr. Ontiveros was contacted by Dr. Alvarez regarding concerns for perforation. Patient has been scheduled for exploratory laparotomy for today. Patient has been afebrile, heart rate 89, blood pressure 172/104. A repeat blood work reveals sodium 137, potassium 3.2, chloride 104, CO2 27, BUN 13 and creatinine 0.67. 10/21: Yesterday, patient underwent exploratory laparotomy and Dong procedure for perforated diverticulitis pneumoperitoneum. The patient is currently on Unasyn. Incentive spirometry and KRYSTAL hose will be added. Patient has JUAN JOSÉ drain in place with blood-tinged serous drainage. She is complaining of significant pain and Dilaudid increased frequency to every 2 hours. She is on clear liquids. Murray catheter is in place. She has been afebrile, heart rate 104, blood pressure 173/91, pulse ox 97% on room air. Capillary blood glucose running between 108 - 141. Repeat blood work reveals WBC 10, hemoglobin 11.1, platelet count 464. Sodium 138, potassium 3.0, chloride 102, CO2 28, BUN 13, creatinine 0.71. Blood cultures are in progress. 10/22: The patient was seen by Dr. Stone and antibiotics changed to Zosyn. Wound cultures gram-negative bacilli. Patient was seen by Dorie Thomas yesterday for ostomy teaching. She is currently on clear liquid diet. Pain has been mostly 78 through the night. She does complain of some right-sided abdominal pain that is new over the last half hour. She complains of nausea and also lower extremity edema. Murray cath remains in place with good output. She has been afebrile, heart rate 104, blood pressure 173/79, pulse ox 95% on room air. Blood sugars running between 130s to 154. Potassium is 2.6 and being replaced and recheck potassium in the evening. WBC 10.9, hemoglobin 9.6. Solu-Cortef decrease to 50 mg IV every 8 hours. 10/23: Patient's pain is better controlled today. She is tolerating clear liquids and enjoying chicken broth this morning. There is gas in her colostomy bag. Murray is out and patient has been able to void on her own. JUAN JOSÉ drain remains in place with serosanguineous drainage. There is currently no IV access and patient was told multiple times during the night to start an IV. Midline will be ordered. Blood pressure is elevated this morning most likely due to stress. Blood pressure 195/94, heart rate 88, pulse ox 97% on room air. Diet to be advanced to full liquids today, increase activity and continue IV antibiotics. 81: Patient is feeling a lot better today she denies any chest pain or shortness breath, she has no coughing she has no fever or chills, her stoma is working very well, she has less swelling both lower extremities today, she slept well yesterday, she has a mid line in the right upper extremity. 82: Doing much better today she denies any chest pain or shortness of breath, she has no abdominal pain, her pain is well-controlled, she is tolerating her regular diet very well, the plan is to transfer to extended care facility for IV anabiotic hopefully [facility] in the next 1 or 2 days. 10/27: Patient is laying down in bed, she had x-rays of hypertension yesterday we had to give her hydralazine 10 mg IV push, she was started on metoprolol 25 mg orally twice every day increase her lisinopril to 40 mg once every day and then we will continue to monitor the patient she was seen earlier by general surgery and her stoma appears to be dusky and she will be kept in the hospital for another 24 hours, she will be staying on liquid diet for now. We will cancel the discharge for today. Objective - Vital Signs Vital signs: Vital Signs Temp 98.2 F 10/28/19 01:54 Pulse 75 10/28/19 01:54 Resp 18 10/28/19 01:54 BP 178/76 10/28/19 01:54 Pulse Ox 94 L 10/28/19 01:54 Intake & Output 10/27/19 10/28/19 10/28/19 18:59 06:59 18:59 Intake Total 565 320 Output Total 20 10 Balance 545 310 Intake: Intake, IV Titration 320 Amount Sodium Chloride 0.9% 1, 320 000 ml @ 20 mls/hr IV . Q24H [facility] Rx#:[id number] Oral 565 Output: Drainage 20 10 Abdomen 20 10 Other: Voiding Method Toilet # Voids 2 # Bowel Movements 1 - Exam - Exam Review of Systems Constitutional: Reports fatigue, Reports weakness, Denies chills, Denies fever Eyes: denies blurred vision, denies pain Ears, nose, mouth and throat: Denies headache, Denies nasal congestion, Denies nasal discharge, Denies sore throat, Denies vertigo Cardiovascular: Denies chest pain, Denies dyspnea on exertion, Denies leg edema, Denies shortness of breath, Denies syncope Respiratory: Denies cough, Denies cough with sputum, Denies dyspnea, Denies excessive sputum, Denies hemoptysis, Denies respiratory infections Gastrointestinal: Reports abdominal pain-improved, Reports change in bowel habits, denies diarrhea, denies loss of appetite, denies nausea, denies vomiting, Denies BRBPR, Denies hematemesis, Denies hematochezia, Denies melena, reports abdominal discomfort Genitourinary: Denies dysuria, Denies hematuria, Denies urgency, Denies urinary frequency Menstruation: Reports postmenopausal Musculoskeletal: Denies frequent falls, Denies gait dysfunction, Denies myalgias Integumentary: Denies pruritus, Denies rash, Denies wounds Neurological: Denies change in mentation, Denies change in speech, Denies gait dysfunction, Denies numbness, Denies seizures, Denies weakness Psychiatric: Denies anxiety, Denies depression Endocrine: Denies fatigue, Denies weight change Physical Examination - Constitutional General appearance: no distress, obese - EENT Eyes: anicteric sclerae, EOMI, PERRLA, no ptosis, no scleral icterus, normal appearance ENT: hearing grossly normal, NA/AT, normal oropharynx, no thrush Ears: bilateral: normal - Neck Neck: no lymphadenopathy, normal ROM, no rigidity, no stridor, no thyromegaly Carotids: bilateral: upstroke normal Thyroid: bilateral: normal size - Respiratory Respiratory: bilateral: diminished, wheezing, prolonged expiration, negative: dullness, rales, rhonchi Frequent moist cough - Cardiovascular Rhythm: regular Heart sounds: normal: S1, S2 Abnormal Heart Sounds: no systolic murmur, no rub, no S3 Gallop, no S4 Gallop, no click - Gastrointestinal General gastrointestinal: Hypoactive bowel sounds, soft, mild tenderness around surgical site. Ostomy in the left lower quadrant with gas in bag, dressing midline has dried blood with no active bleeding noted. JUAN JOSÉ drain with ser osanguineous output. - Integumentary Integumentary: normal, normal turgor - Neurologic Neurologic: CNII-XII intact - Musculoskeletal Musculoskeletal: generalized weakness - Psychiatric Psychiatric: A&O x's 3, appropriate affect, intact judgment & insight - Labs CBC & Chem 7: 10/27/19 06:57 10/27/19 06:57 Labs: Abnormal Lab Results - Last 24 Hours (Table) 10/27/19 10/27/19 10/27/19 Range/Units 06:57 11:04 16:15 Potassium 3.2 L (3.5-5.1) mmol/L Glucose 118 H (74-99) mg/dL POC Glucose (mg/dL) 132 H 135 H (75-99) mg/dL Calcium 8.1 L (8.4-10.2) mg/dL AST 47 H (14-36) U/L ALT 61 H (4-34) U/L Alkaline Phosphatase 138 H (38-126) U/L Total Protein 5.8 L (6.3-8.2) g/dL 10/27/19 Range/Units 20:20 Potassium (3.5-5.1) mmol/L Glucose (74-99) mg/dL POC Glucose (mg/dL) 115 H (75-99) mg/dL Calcium (8.4-10.2) mg/dL AST (14-36) U/L ALT (4-34) U/L Alkaline Phosphatase (38-126) U/L Total Protein (6.3-8.2) g/dL Assessment and Plan Assessment: Assessment and Plan Plan: 1. Acute diverticulitis. Decrease IV fluid to KVO.. Diet advance to soft diet. Continue current pain management. Zofran for nausea and vomiting, IV Dilaudid for pain control, Reglan as needed. 2. Pneumoperitoneum and acute peritonitis secondary to perforated diverticulitis status post exploratory laparotomy and Dong procedure with Dr. Ontiveros. Continue Zosyn, we will discontinue Dilaudid and start the patient on tramadol 50 mg orally every 6 hours as needed. 3. Hypokalemia status post replacement. Continue to monitor and replace. 4. COPD without exacerbation. Continue albuterol nebulizer treatment as needed, DuoNeb treatment at bedtime, Symbicort 2 puffs twice daily. 5. Adrenal insufficiency disorder. Patient was taken off her son reports that she was started back on her oral Solu-Cortef 25 mg in the morning and 50 minute gram in the evening. 6. History of Curtis granulomatosis. Continue steroids as above. 7. GERD. Continue Protonix 40 mg every day. 8. Hyperglycemia. CBG before meals and at bedtime, NovoLog scale. 9. Chronic tobacco use and dependence--patient quit July 2018. 10. Hypertension and hypertensive cardio vascular disease. Increased lisinopril to 40 mg once every day, added metoprolol tartrate 25 mg orally twice every day, keep hydralazine 20 mg IV push every 4 hours as needed. We will monitor the patient for another 24 hours. 11. Recurrent depression. Continue Cymbalta 20 mg daily 12. DVT prophylaxis. Heparin subcu 3 times daily. 13. COVID-19 infection not present. 14. GI prophylaxis. Continue patient on Protonix 40 mg orally once every day. 15. DVT Prophylaxis . Heparin 5000 units SC Q 8 H. 16. Plan for IV antibiotic at extended care facility like [facility] hopefully in the next 24 hours.
[2019-10-28] MEDS: INSULIN ASPART (NovoLOG) 100 UNIT/ML VIAL SQ SCH ×4 (08:36→22:12)
[2019-10-28] MEDS: HEPARIN SODIUM,PORCINE 5,000 UNIT/ML 1 ML VIAL SQ SCH ×2 (08:37→16:23)
[2019-10-28] MEDS: METOPROLOL TARTRATE 25 MG TAB PO SCH (08:37)
[2019-10-28] MEDS: lisinopriL 20 MG TAB PO SCH (08:38)
[2019-10-28] MEDS: PANTOPRAZOLE 40 MG TABLET PO SCH (08:38)
[2019-10-28] MEDS: CEFEPIME 2 GM in SODIUM CHLORIDE 0.9% 100 ML IVPB SCH (08:38)
--- NOTE | 2019-10-28 08:58 | P.PN ---
Subjective Progress Note Date: 10/28/19 Patient seen and examined at bedside. Complaining of hypertension episodes over night and cramping across her abdomen. Objective - Vital Signs Vital signs: Vital Signs Temp 98.1 F 10/28/19 07:00 Pulse 86 10/28/19 07:00 Resp 18 10/28/19 07:00 BP 162/79 10/28/19 07:00 Pulse Ox 97 10/28/19 07:00 Intake & Output 10/27/19 10/28/19 10/28/19 18:59 06:59 18:59 Intake Total 565 320 Output Total 20 10 Balance 545 310 Intake: Intake, IV Titration 320 Amount Sodium Chloride 0.9% 1, 320 000 ml @ 20 mls/hr IV . Q24H [facility] Rx#:[id number] Oral 565 Output: Drainage 20 10 Abdomen 20 10 Other: Voiding Method Toilet # Voids 2 # Bowel Movements 1 - Constitutional General appearance: Present: cooperative, no acute distress - Respiratory Details: no difficulty with respiration - Gastrointestinal Gastrointestinal Comment(s): soft, nontender, nondistended, midline incision clean, dry and intact, ostomy noted to be yellowish in color. Digital exam was performed and ostomy was dilated. On exam, healthy pink tissue is noted approximately 1cm distal to stoma - Musculoskeletal Musculoskeletal: Present: generalized weakness - Psychiatric Psychiatric: Present: A&O x's 3 - Labs CBC & Chem 7: 10/27/19 06:57 10/27/19 06:57 Labs: Abnormal Lab Results - Last 24 Hours (Table) 10/27/19 10/27/19 10/27/19 Range/Units 11:04 16:15 20:20 POC Glucose (mg/dL) 132 H 135 H 115 H (75-99) mg/dL Assessment and Plan (1) Diverticulitis Narrative/Plan: 59-year-old female postoperative, exploratory laparotomy and Matos's procedure secondary to perforated diverticulitis - Ostomy nurse has been consulted for ostomy education, she has met with the patient - OStomy exam performed with dilation, yellow color likely from venous congestion vs mild ischemia. Healthy tissue noted 1cm proximal to stoma. Continue ostomy care. - Continue IV antibiotics, ID has been consultation. Appreciate recommendations - Continue diet as tolerated - Pain control with narcotic pain medication and Toradol - Increase activity - Continue medical care for medical comorbidities. I discussed this in depth with the patient. There is significant concern about wound healing and postoperative infection secondary to the patient's history of chronic steroid use along with Rituxan use for Daniel's. She states that her last Rituxan dose was in April of this year. We will closely monitor the patient's progress with wound healing and for postoperative infection based on her clinical progress. - Will continue to follow and make recommendations based on the patient's clinical progress. Current Visit: Yes Status: Acute Code(s): K57.92 - DVTRCLI OF INTEST, PART UNSP, W/O PERF OR ABSCESS W/O BLEED SNOMED Code(s): 677159433
[2019-10-28] MEDS: hydrALAZINE HCL 20 MG/ML 1 ML VIAL IVP PRN (10:06)
[2019-10-28] MEDS: HYDROCORTISONE 10 MG TAB PO SCH ×2 (10:07→16:22)
[2019-10-28] MEDS: DULoxetine HCL 20 MG CAPSULE.DR PO SCH (10:08)
[2019-10-28] MEDS: prednisoLONE ACETATE 1% OPHTH DROPS 5 ML BTL BOTH EYES SCH (10:09)
[2019-10-28] MEDS: cycloSPORINE 0.05% OPHTH 0.4 ML DROPERETTE BOTH EYES SCH ×2 (10:10→22:13)
[2019-10-28] MEDS: SIMETHICONE 40 MG/0.6 ML DROPS 2,000 MG/30 ML BOTTLE PO SCH ×4 (10:10→22:12)
[2019-10-28 10:53] LABS: HCT 33.2 % (34.0-46.0); HGB 10.5 gm/dL (11.4-16.0); MCH 28.5 pg (25.0-35.0); MCHC 31.6 g/dL (31.0-37.0); MCV 90.2 fL (80.0-100.0); Mean Platelet Volume 7.1; Platelet Count 649 k/uL (150-450); RBC 3.68 m/uL (3.80-5.40); RDW 14.8 % (11.5-15.5); WBC 17.8 k/uL (3.8-10.6)
[2019-10-28 11:04] LABS: ALT 76 U/L (4-34); AST 51 U/L (14-36); African American GFR (CKD) >90 (>60 ml/min/1.73 sqM); Albumin 3.2 g/dL (3.5-5.0); Alkaline Phosphatase 141 U/L (38-126); Anion Gap 6 mmol/L; Blood Urea Nitrogen 21 mg/dL (7-17); Calcium 8.1 mg/dL (8.4-10.2); Carbon Dioxide 26 mmol/L (22-30); Chloride 105 mmol/L (98-107); Glucose 108 mg/dL (74-99); Non-African American GFR(CKD) >90 (>60 ml/min/1.73 sqM); Potassium 3.1 mmol/L (3.5-5.1); Sodium 137 mmol/L (137-145); Total Bilirubin 0.5 mg/dL (0.2-1.3); Total Protein 5.3 g/dL (6.3-8.2)
[2019-10-28 11:16] LABS: Glucose,Whole Blood 109 mg/dL (75-99)
[2019-10-28] MEDS: traMADol 50 MG TAB PO PRN ×2 (12:56→18:29)
[2019-10-28] MEDS: amLODIPine 5 MG TAB PO SCH (12:56)
--- NOTE | 2019-10-28 13:59 | XR ---
EXAMINATION TYPE: XR chest 1V DATE OF EXAM: 10/28/2019 HISTORY: Shortness of breath. COMPARISON: 01/09/19 TECHNIQUE: Single view of the chest is submitted. FINDINGS: Demonstrated are scattered senescent parenchymal change. Postoperative changes right lung with chron ic elevation right hemidiaphragm. Pleural thickening or small effusion. There is no evidence for focal infiltrate. The heart is stable. Hilar and mediastinal structures are within normal limits. Degenerative changes are seen of the dorsal spine. IMPRESSION: 1. Chronic changes without evidence for acute pulmonary disease.
[2019-10-28] MEDS: PIPERACILLIN-TAZOBACTAM 3.375 GM in SODIUM CHLORIDE 0.9% 100 ML IVPB SCH (16:23)
[2019-10-28] MEDS ORDERED: Potassium Replacement Protocol 1 EACH MISC MISCELLANE PRN (16:26)
[2019-10-28 16:39] LABS: Glucose,Whole Blood 155 mg/dL (75-99)
[2019-10-28] MEDS: POTASSIUM CHLORIDE ER 20 MEQ TAB.ER PO SCH ×2 (16:40→17:38)
--- NOTE | 2019-10-28 17:01 | PN ---
PROGRESS NOTE DATE OF SERVICE: 10/28/2019 REASON FOR FOLLOWUP: Abdominal abscess from perforated diverticulitis. INTERVAL HISTORY: The patient is currently afebrile. She is still complaining of pain in the abdominal area, but no worsening compared to yesterday. Denies having any chest pain or shortness of breath or cough. No nausea, no vomiting. Did have output in her colostomy bag. PHYSICAL EXAMINATION: Blood pressure 151/69 with a pulse of 83, temperature 98.1. She is 97% on room air. General description is a middle-aged female lying in bed in no distress. RESPIRATORY SYSTEM: Unlabored breathing. Clear to auscultation anteriorly. HEART: S1, S2. Regular rate and rhythm. ABDOMEN: Soft. No guarding or rigidity. LABS: Hemoglobin is 10.5, white count 17.8, BUN of 21, creatinine 0.66. DIAGNOSTIC IMPRESSION AND PLAN: Patient with abdominal abscess from perforated sigmoid diverticulitis. Cultures positive for Klebsiella and Citrobacter in this patient who did have worsening of her white count. Currently does not have any anaerobe coverage. We will switch her back to Zosyn and monitor her clinical course closely. Continue with supportive care. MMODL / IJN: [id number] /
[2019-10-28] MEDS: IPRATROPIUM-ALBUTEROL 3 ML NEB INHALATION SCH (18:59)
[2019-10-28 21:00] LABS: Glucose,Whole Blood 117 mg/dL (75-99)
[2019-10-28] MEDS: METOPROLOL TARTRATE 50 MG TAB PO SCH (22:10)
[2019-10-28] MEDS: LATANOPROST 0.005% OPHTH DROPS 2.5 ML BTL BOTH EYES SCH (22:11)
[2019-10-29] MEDS: HEPARIN SODIUM,PORCINE 5,000 UNIT/ML 1 ML VIAL SQ SCH ×3 (00:16→15:29)
[2019-10-29] MEDS: PIPERACILLIN-TAZOBACTAM 3.375 GM in SODIUM CHLORIDE 0.9% 100 ML IVPB SCH ×3 (00:16→17:03)
[2019-10-29] MEDS: METOCLOPRAMIDE 5 MG/ML 2 ML VIAL IVP PRN (00:16)
[2019-10-29] MEDS: traMADol 50 MG TAB PO PRN ×4 (00:17→18:16)
[2019-10-29] MEDS: HYDROmorphone 1 MG/ML 1 ML SYRINGE IVP PRN ×2 (03:30→19:26)
[2019-10-29] MEDS ORDERED: POTASSIUM CHLORIDE ER 20 MEQ TAB.ER PO STA (06:18)
[2019-10-29 06:58] LABS: Glucose,Whole Blood 112 mg/dL (75-99)
[2019-10-29] MEDS ORDERED: POTASSIUM CHLORIDE 20 MEQ in WATER FOR INJECTION 1 100ML.BAG IVPB SCH (07:00)
[2019-10-29] MEDS: INSULIN ASPART (NovoLOG) 100 UNIT/ML VIAL SQ SCH ×4 (07:02→20:56)
[2019-10-29] MEDS: SYMBICORT 160-4.5 MCG INHALER INHALATION SCH ×2 (07:36→20:01)
[2019-10-29 08:00] LABS: Basophils # (A) 0.1 k/uL (0-0.2); Basophils % (A) 0 %; Eosinophils # (A) 0.2 k/uL (0-0.7); Eosinophils % (A) 1 %; HCT 34.9 % (34.0-46.0); HGB 10.8 gm/dL (11.4-16.0); Hypochromasia Slight; Lymphocytes # (A) 2.7 k/uL (1.0-4.8); Lymphocytes % (A) 18 %; MCH 28.4 pg (25.0-35.0); MCHC 30.9 g/dL (31.0-37.0); MCV 91.7 fL (80.0-100.0); Monocytes # (A) 0.6 k/uL (0-1.0); Monocytes % (A) 4 %; Neutrophils # (A) 11.2 k/uL (1.3-7.7); Neutrophils % (A) 76 %; Platelet Count 686 k/uL (150-450); RBC 3.81 m/uL (3.80-5.40); RDW 14.5 % (11.5-15.5); WBC 14.8 k/uL (3.8-10.6)
[2019-10-29 08:15] LABS: ALT 63 U/L (4-34); AST 36 U/L (14-36); African American GFR (CKD) >90 (>60 ml/min/1.73 sqM); Albumin 3.2 g/dL (3.5-5.0); Alkaline Phosphatase 105 U/L (38-126); Anion Gap 6 mmol/L; Blood Urea Nitrogen 16 mg/dL (7-17); Calcium 8.6 mg/dL (8.4-10.2); Carbon Dioxide 26 mmol/L (22-30); Chloride 105 mmol/L (98-107); Glucose 102 mg/dL (74-99); Non-African American GFR(CKD) >90 (>60 ml/min/1.73 sqM); Potassium 3.4 mmol/L (3.5-5.1); Sodium 137 mmol/L (137-145); Total Bilirubin 0.5 mg/dL (0.2-1.3); Total Protein 5.4 g/dL (6.3-8.2)
--- NOTE | 2019-10-29 08:19 | P.PN ---
Subjective Progress Note Date: 10/29/19 Patient seen and examined at bedside. WBC slightly decreased today from yesterday. Complains of some discomfort around incision. Objective - Vital Signs Vital signs: Vital Signs Temp 98.8 F 10/29/19 03:04 Pulse 67 10/29/19 03:04 Resp 18 10/29/19 03:04 BP 164/75 10/29/19 03:04 Pulse Ox 97 10/29/19 03:04 Intake & Output 10/28/19 10/29/19 10/29/19 18:59 06:59 18:59 Intake Total 950 Output Total 165 20 Balance 785 -20 Weight 79.832 kg Intake: Intake, IV Titration 100 Amount Cefepime 2 gm In Sodium 100 Chloride 0.9% 100 ml @ 25 mls/hr IVPB Q12HR [facility] Rx #:[id number] Oral 850 Output: Drainage 165 20 Abdomen 165 20 Other: # Voids 2 3 - Constitutional General appearance: Present: cooperative, no acute distress - Gastrointestinal Gastrointestinal Comment(s): soft, nontender, nondistended, no rebound, no guarding, ostomy unchanged from previous exam with continued stool output, JUAN JOSÉ in place with serous drainage, midline incision c/d/i - Musculoskeletal Musculoskeletal: Present: generalized weakness - Psychiatric Psychiatric: Present: A&O x's 3 - Labs CBC & Chem 7: 10/29/19 07:24 10/29/19 07:24 Labs: Abnormal Lab Results - Last 24 Hours (Table) 10/28/19 10/28/19 10/28/19 Range/Units 10:36 10:36 11:15 WBC 17.8 H (3.8-10.6) k/uL RBC 3.68 L (3.80-5.40) m/uL Hgb 10.5 L (11.4-16.0) gm/dL Hct 33.2 L (34.0-46.0) % MCHC (31.0-37.0) g/dL Plt Count 649 H (150-450) k/uL Neutrophils # (1.3-7.7) k/uL Potassium 3.1 L (3.5-5.1) mmol/L BUN 21 H (7-17) mg/dL Glucose 108 H (74-99) mg/dL POC Glucose (mg/dL) 109 H (75-99) mg/dL Calcium 8.1 L (8.4-10.2) mg/dL AST 51 H (14-36) U/L ALT 76 H (4-34) U/L Alkaline Phosphatase 141 H (38-126) U/L Total Protein 5.3 L (6.3-8.2) g/dL Albumin 3.2 L (3.5-5.0) g/dL 10/28/19 10/28/19 10/29/19 Range/Units 16:38 20:56 06:56 WBC (3.8-10.6) k/uL RBC (3.80-5.40) m/uL Hgb (11.4-16.0) gm/dL Hct (34.0-46.0) % MCHC (31.0-37.0) g/dL Plt Count (150-450) k/uL Neutrophils # (1.3-7.7) k/uL Potassium (3.5-5.1) mmol/L BUN (7-17) mg/dL Glucose (74-99) mg/dL POC Glucose (mg/dL) 155 H 117 H 112 H (75-99) mg/dL Calcium (8.4-10.2) mg/dL AST (14-36) U/L ALT (4-34) U/L Alkaline Phosphatase (38-126) U/L Total Protein (6.3-8.2) g/dL Albumin (3.5-5.0) g/dL 10/29/19 10/29/19 Range/Units 07:24 07:24 WBC 14.8 H (3.8-10.6) k/uL RBC (3.80-5.40) m/uL Hgb 10.8 L (11.4-16.0) gm/dL Hct (34.0-46.0) % MCHC 30.9 L (31.0-37.0) g/dL Plt Count 686 H (150-450) k/uL Neutrophils # 11.2 H (1.3-7.7) k/uL Potassium 3.4 L (3.5-5.1) mmol/L BUN (7-17) mg/dL Glucose 102 H (74-99) mg/dL POC Glucose (mg/dL) (75-99) mg/dL Calcium (8.4-10.2) mg/dL AST (14-36) U/L ALT 63 H (4-34) U/L Alkaline Phosphatase (38-126) U/L Total Protein 5.4 L (6.3-8.2) g/dL Albumin 3.2 L (3.5-5.0) g/dL Assessment and Plan (1) Diverticulitis Narrative/Plan: 59-year-old female postoperative, exploratory laparotomy and Matos's procedure secondary to perforated diverticulitis - Ostomy nurse has been consulted for ostomy education, she has met with the patient - Ostomy exam performed with dilation, yellow color likely from venous congestion vs mild ischemia. Healthy tissue noted 1cm proximal to stoma. Continue ostomy care. - Continue IV antibiotics, ID has provided recommendations. Leukocytosis improved compared to yesterday. Will obtain CT A/P with contrast for evaluation of leukocytosis and complaint of pain. - Continue diet as tolerated - Pain control with narcotic pain medication and Toradol - Increase activity - Continue medical care for medical comorbidities. I discussed this in depth with the patient. There is significant concern about wound healing and po stoperative infection secondary to the patient's history of chronic steroid use along with Rituxan use for Daniel's. She states that her last Rituxan dose was in April of this year. We will closely monitor the patient's progress with wound healing and for postoperative infection based on her clinical progress. - Will continue to follow and make recommendations based on the patient's clinical progress. Current Visit: Yes Status: Acute Code(s): K57.92 - DVTRCLI OF INTEST, PART UNSP, W/O PERF OR ABSCESS W/O BLEED SNOMED Code(s): 916064375
--- NOTE | 2019-10-29 08:21 | P.PN ---
Subjective Progress Note Date: 10/29/19 This is a 59-year-old female patient of Dr. Alvarez and Dr. Damico. with past medical history of diabetes mellitus type 2, Curtis granulomatosis, gastroesophageal reflux disease, hypertension. Patient presented to [facility] due to abdominal pain as well as diarrhea that it going on for 3 weeks. She has at least 1 loose stool daily. Yesterday she developed nausea and vomiting as well as lower abdominal pain. No fever or chills. No shortness of breath, chest pain, headache. Patient came into [facility] emergency center for evaluation and found to be afebrile, heart rate 90, blood pressure 153/81, pulse ox 94% on room air. WBC 14.7, hemoglobin 12.8, platelet count 385. Sodium 138, potassium 3.4, chloride 101, CO2 26, BUN 20 creatinine 0.94. Blood sugar 132. Lactic acid 1.5. Total bilirubin 0.5, AST 29, ALT 52, alkaline phosphatase 69. Lipase 1682. Urinalysis clear with nitrate and leukoesterase negative. CAT scan of the abdomen and pelvis with contrast revealed sigmoid diverticula with focal diverticulitis in the distal sigmoid colon. Normal appendix. Numerous nonobstructed bilateral renal calculi. Patient was given 1 L of IV fluids, Zofran, morphine with improvement of her pain and [facility]. Consult with general surgery regarding diverticulitis. Patient is currently on clear liquid diet. COVID-19 testing in process. 10/17: Still complaining of increase pain in the abdomen today, there is no nausea or vomiting we will continue with IVF and we will change to add KCL , we will keep NPO , reevaluate in 24 hours, surgery consult appreciated, there is no chest pain or shortness of breath, no coughing, she has not had any bowel movements , she is passing gas. 10/18: Patient is laying down in bed she continues to have increased pain left lower quadrant, she continues to spit up some sputum, she has no chest pain or any shortness breath at this time, she has not had any bowel movement. She was started on clear liquid diet however she did not get anything yet beside water and ice, she seems clinically better she continues to be hypokalemic we will replace again. We will increase her IV fluids to 100 mL an hour. 10/19: Patient has been seen by Dr. Ontiveros this morning. She has had a few bowel movements in the past 24 hours. She states she has had no vomiting for greater than 24 hours since about 5:30 in the morning on Sunday which she relates to potassium. Her abdomen is still operator helper with bloating but much improved. She states she slept okay during the night. Repeat potassium today is at 3 and will be replaced. Repeat potassium and magnesium level to be done at 7 PM. IV fluids decreased to 75 mL per hour. Patient has been afebrile, heart rate 88, blood pressure 170/91, pulse ox 96% on room air. A repeat blood work reveals hemoglobin 9.9, WBC 7.9. Blood sugars running between 129 and 134. Creatinine 0.7. Anticipate probable discharge tomorrow. 10/20: The patient was anticipating discharge home today but she still had abdominal distention. Urgent Abdominal x-ray was ordered which did show significant amount of abdominal distention. Patient was made nothing by mouth and Dr. Ontiveros was contacted by Dr. Alvarez regarding concerns for perforation. Patient has been scheduled for exploratory laparotomy for today. Patient has been afebrile, heart rate 89, blood pressure 172/104. A repeat blood work reveals sodium 137, potassium 3.2, chloride 104, CO2 27, BUN 13 and creatinine 0.67. 10/21: Yesterday, patient underwent exploratory laparotomy and Dong procedure for perforated diverticulitis pneumoperitoneum. The patient is currently on Unasyn. Incentive spirometry and KRYSTAL hose will be added. Patient has JUAN JOSÉ drain in place with blood-tinged serous drainage. She is complaining of significant pain and Dilaudid increased frequency to every 2 hours. She is on clear liquids. Murray catheter is in place. She has been afebrile, heart rate 104, blood pressure 173/91, pulse ox 97% on room air. Capillary blood glucose running between 108 - 141. Repeat blood work reveals WBC 10, hemoglobin 11.1, platelet count 464. Sodium 138, potassium 3.0, chloride 102, CO2 28, BUN 13, creatinine 0.71. Blood cultures are in progress. 10/22: The patient was seen by Dr. Stone and antibiotics changed to Zosyn. Wound cultures gram-negative bacilli. Patient was seen by Dorie Thomas yesterday for ostomy teaching. She is currently on clear liquid diet. Pain has been mostly 78 through the night. She does complain of some right-sided abdominal pain that is new over the last half hour. She complains of nausea and also lower extremity edema. Murray cath remains in place with good output. She has been afebrile, heart rate 104, blood pressure 173/79, pulse ox 95% on room air. Blood sugars running between 130s to 154. Potassium is 2.6 and being replaced and recheck potassium in the evening. WBC 10.9, hemoglobin 9.6. Solu-Cortef decrease to 50 mg IV every 8 hours. 10/23: Patient's pain is better controlled today. She is tolerating clear liquids and enjoying chicken broth this morning. There is gas in her colostomy bag. Murray is out and patient has been able to void on her own. JUAN JOSÉ drain remains in place with serosanguineous drainage. There is currently no IV access and patient was told multiple times during the night to start an IV. Midline will be ordered. Blood pressure is elevated this morning most likely due to stress. Blood pressure 195/94, heart rate 88, pulse ox 97% on room air. Diet to be advanced to full liquids today, increase activity and continue IV antibiotics. 81: Patient is feeling a lot better today she denies any chest pain or shortness breath, she has no coughing she has no fever or chills, her stoma is working very well, she has less swelling both lower extremities today, she slept well yesterday, she has a mid line in the right upper extremity. 82: Doing much better today she denies any chest pain or shortness of breath, she has no abdominal pain, her pain is well-controlled, she is tolerating her regular diet very well, the plan is to transfer to extended care facility for IV anabiotic hopefully [facility] in the next 1 or 2 days. 10/27: Patient is laying down in bed, she had x-rays of hypertension yesterday we had to give her hydralazine 10 mg IV push, she was started on metoprolol 25 mg orally twice every day increase her lisinopril to 40 mg once every day and then we will continue to monitor the patient she was seen earlier by general surgery and her stoma appears to be dusky and she will be kept in the hospital for another 24 hours, she will be staying on liquid diet for now. We will cancel the discharge for today. 10/28:Patient is sitting up in bed in no acute distress, she still have pain in the abdomen and her antibiotocs were swtched back and forth and now on Zosyn again, no chest pain or shortness of breath, she continues to have dusky stoma, we will obtain a ct scan of the abdomen and pelvis with contrast for evaluation, she will stay in the hospital for another 24 hours. Objective - Vital Signs Vital signs: Vital Signs Temp 98.8 F 10/29/19 03:04 Pulse 67 10/29/19 03:04 Resp 18 10/29/19 03:04 BP 164/75 10/29/19 03:04 Pulse Ox 97 10/29/19 03:04 Intake & Output 10/28/19 10/28/19 10/29/19 06:59 18:59 06:59 Intake Total 320 950 Output Total 10 165 20 Balance 310 785 -20 Weight 79.832 kg Intake: Intake, IV Titration 320 100 Amount Cefepime 2 gm In Sodium 100 Chloride 0.9% 100 ml @ 25 mls/hr IVPB Q12HR MICHAEL Rx #:[id number] Sodium Chloride 0.9% 1, 320 000 ml @ 20 mls/hr IV . Q24H MICHAEL Rx#:[id number] Oral 850 Output: Drainage 10 165 20 Abdomen 10 165 20 Other: Voiding Method Toilet # Voids 2 2 3 - Exam - Exam Review of Systems Constitutional: Reports fatigue, Reports weakness, Denies chills, Denies fever Eyes: denies blurred vision, denies pain Ears, nose, mouth and throat: Denies headache, Denies nasal congestion, Denies nasal discharge, Denies sore throat, Denies vertigo Cardiovascular: Denies chest pain, Denies dyspnea on exertion, Denies leg edema, Denies shortness of breath, Denies syncope Respiratory: Denies cough, Denies cough with sputum, Denies dyspnea, Denies excessive sputum, Denies hemoptysis, Denies respiratory infections Gastrointestinal: Reports abdominal pain-improved, Reports change in bowel habits, denies diarrhea, denies loss of appetite, denies nausea, denies vomiting, Denies BRBPR, Denies hematemesis, Denies hematochezia, Denies melena, reports abdominal discomfort Genitourinary: Denies dysuria, Denies hematuria, Denies urgency, Denies urinary frequency Menstruation: Reports postmenopausal Musculoskeletal: Denies frequent falls, Denies gait dysfunction, Denies myalgias Integumentary: Denies pruritus, Denies rash, Denies wounds Neurological: Denies change in mentation, Denies change in speech, Denies gait dysfunction, Denies numbness, Denies seizures, Denies weakness Psychiatric: Denies anxiety, Denies depression Endocrine: Denies fatigue, Denies weight change Physical Examination - Constitutional General appearance: no distress, obese - EENT Eyes: anicteric sclerae, EOMI, PERRLA, no ptosis, no scleral icterus, normal appearance ENT: hearing grossly normal, NA/AT, normal oropharynx, no thrush Ears: bilateral: normal - Neck Neck: no lymphadenopathy, normal ROM, no rigidity, no stridor, no thyromegaly Carotids: bilateral: upstroke normal Thyroid: bilateral: normal size - Respiratory Respiratory: bilateral: diminished, wheezing, prolonged expiration, negative: dullness, rales, rhonchi Frequent moist cough - Cardiovascular Rhythm: regular Heart sounds: normal: S1, S2 Abnormal Heart Sounds: no systolic murmur, no rub, no S3 Gallop, no S4 Gallop, no click - Gastrointestinal General gastrointestinal: Hypoactive bowel sounds, soft, mild tenderness around surgical site. Ostomy in the left lower quadrant with gas in bag, dressing midline has dried blood with no active bleeding noted. JUAN JOSÉ drain with serosanguineous output. - Integumentary Integumentary: normal, normal turgor - Neurologic Neurologic: CNII-XII intact - Musculoskeletal Musculoskeletal: generalized weakness - Psychiatric Psychiatric: A&O x's 3, appropriate affect, intact judgment & insight - Labs CBC & Chem 7: 10/29/19 07:24 10/29/19 07:24 Labs: Abnormal Lab Results - Last 24 Hours (Table) 10/28/19 10/28/19 10/28/19 Range/Units 10:36 10:36 11:15 WBC 17.8 H (3.8-10.6) k/uL RBC 3.68 L (3.80-5.40) m/uL Hgb 10.5 L (11.4-16.0) gm/dL Hct 33.2 L (34.0-46.0) % Plt Count 649 H (150-450) k/uL Potassium 3.1 L (3.5-5.1) mmol/L BUN 21 H (7-17) mg/dL Glucose 108 H (74-99) mg/dL POC Glucose (mg/dL) 109 H (75-99) mg/dL Calcium 8.1 L (8.4-10.2) mg/dL AST 51 H (14-36) U/L ALT 76 H (4-34) U/L Alkaline Phosphatase 141 H (38-126) U/L Total Protein 5.3 L (6.3-8.2) g/dL Albumin 3.2 L (3.5-5.0) g/dL 10/28/19 10/28/19 Range/Units 16:38 20:56 WBC (3.8-10.6) k/uL RBC (3.80-5.40) m/uL Hgb (11.4-16.0) gm/dL Hct (34.0-46.0) % Plt Count (150-450) k/uL Potassium (3.5-5.1) mmol/L BUN (7-17) mg/dL Glucose (74-99) mg/dL POC Glucose (mg/dL) 155 H 117 H (75-99) mg/dL Calcium (8.4-10.2) mg/dL AST (14-36) U/L ALT (4-34) U/L Alkaline Phosphatase (38-126) U/L Total Protein (6.3-8.2) g/dL Albumin (3.5-5.0) g/dL Assessment and Plan Assessment: Assessment and Plan Plan: 1. Acute diverticulitis. Decrease IV fluid to KVO.. Diet advance to soft diet. Continue current pain management. Zofran for nausea and vomiting, IV D ilaudid for pain control, Reglan as needed. 2. Pneumoperitoneum and acute peritonitis secondary to perforated diverticulitis status post exploratory laparotomy and Dong procedure with Dr. Ontiveros. Continue Zosyn, we will discontinue Dilaudid and start the patient on tramadol 50 mg orally every 6 hours as needed. 3. Hypokalemia status post replacement. Continue to monitor and replace. 4. COPD without exacerbation. Continue albuterol nebulizer treatment as needed, DuoNeb treatment at bedtime, Symbicort 2 puffs twice daily. 5. Adrenal insufficiency disorder. Patient was taken off her son reports that she was started back on her oral Solu-Cortef 25 mg in the morning and 50 minute gram in the evening. 6. History of Curtis granulomatosis. Continue steroids as above. 7. GERD. Continue Protonix 40 mg every day. 8. Hyperglycemia. CBG before meals and at bedtime, NovoLog scale. 9. Chronic tobacco use and dependence--patient quit July 2018. 10. Hypertension and hypertensive cardiovascular disease. Increased lisinopril to 40 mg once every day, added metoprolol tartrate 25 mg orally twice every day, keep hydralazine 20 mg IV push every 4 hours as needed. We will monitor the patient for another 24 hours. 11. Recurrent depression. Continue Cymbalta 20 mg daily 12. DVT prophylaxis. Heparin subcu 3 times daily. 13. COVID-19 infection not present. 14. GI prophylaxis. Continue patient on Protonix 40 mg orally once every day. 15. DVT Prophylaxis . Heparin 5000 units SC Q 8 H. 16. Leukocytosis we will plan to have CT scan of the abdomen and pelvis with contrast. 17. Hold off discharge.
[2019-10-29] MEDS: IOPAMIDOL CONTRAST (ORAL USE) VIAL PO PRN ×2 (08:38→09:39)
[2019-10-29] MEDS: amLODIPine 5 MG TAB PO SCH (08:48)
[2019-10-29] MEDS: HYDROCORTISONE 10 MG TAB PO SCH ×2 (08:49→17:04)
[2019-10-29] MEDS: DULoxetine HCL 20 MG CAPSULE.DR PO SCH (08:50)
[2019-10-29] MEDS: cycloSPORINE 0.05% OPHTH 0.4 ML DROPERETTE BOTH EYES SCH ×2 (08:51→21:08)
[2019-10-29] MEDS: prednisoLONE ACETATE 1% OPHTH DROPS 5 ML BTL BOTH EYES SCH (08:52)
[2019-10-29] MEDS: SIMETHICONE 40 MG/0.6 ML DROPS 2,000 MG/30 ML BOTTLE PO SCH ×4 (08:53→21:36)
[2019-10-29] MEDS: METOPROLOL TARTRATE 50 MG TAB PO SCH ×2 (08:58→21:06)
[2019-10-29] MEDS: lisinopriL 20 MG TAB PO SCH (08:58)
[2019-10-29] MEDS: PANTOPRAZOLE 40 MG TABLET PO SCH (08:58)
--- NOTE | 2019-10-29 10:36 | CT ---
EXAMINATION TYPE: CT abdomen pelvis w con DATE OF EXAM: 10/29/2019 HISTORY: Abdominal pain post colostomy. CT DLP: 1340.7mGycm Automated Exposure Control for Dose Reduction was Utilized. CONTRAST: CT scan of the abdomen and pelvis is performed with oral and with IV Contrast, patient injected with 100ml mL of Isovue 300. COMPARISON: CT abdomen and pelvis October 16, 2019 FINDINGS: LUNG BASES: Persistent right basilar linear scarring. LIVER/GB: Persistent low dense liver consistent with diffuse fatty infiltration. PANCREAS: No significant abnormality is seen. SPLEEN: No significant abnormality is seen. ADRENALS: No significant abnormality is seen. KIDNEYS: Multiple tiny nonobstructing renal calculi bilaterally more numerous in the left kidney. The re is symmetric cortical medullary uptake and excretion without hydronephrosis seen bilaterally. Ther e are scattered simple-appearing subcentimeter thin-walled cysts noted bilaterally. BOWEL: Interval surgery with partial colonic resection and new left mid abdominal colostomy. Surgical sutures in the sigmoid rectal stump left pelvis axial image 64 noted. No suspicious small or large b owel dilatation. Oral contrast does not reach level of the terminal ileum making evaluation of distal bowel slightly suboptimal. Mild wall thickening involving the distal one half of the transverse colo n. More moderate wall thickening from the splenic flexure and remainder of the left colon extending t o the ostomy. Some mild to moderate ill-defined fluid and fat stranding at the site of ostomy and dis raissa colon just short of ostomy. Foci of air and sutures surrounding ostomy. The left paracolic gutter has a thin-walled 2.2 x 1.9 by roughly 5.0 cm fluid collection maximally measures 34 and coronal vivek ge 68 along with smaller thin-walled fluid collection in the left mid to lower abdomen axial image 49 . There is percutaneous drainage catheter entering the right mid pelvis and terminating in the left m id to lower abdomen anteriorly. No significant fluid or fat stranding near the tip of catheter. UTERUS/ADNEXA: Anteverted uterus projects just left of midline. LYMPH NODES: No greater than 1cm abdominal or pelvic lymph nodes are appreciated. OSSEOUS STRUCTURES: Slight grade 1 anterolisthesis L4 on L5 and L5 on S1. No pars defects. Facet arth ropathy lower lumbar spine. OTHER: New overlying midline vertical scar beginning just above umbilicus extending to the pelvic lev el with a few skin kilo overlying the pelvis. IMPRESSION: Interval diverting colostomy. Nonspecific fluid and fat stranding along with colonic wall thickening as detailed above could reflect product of recent surgery or persistent/new inflammatory change. Thin-walled fluid collections noted as detailed above also nonspecific.
[2019-10-29 11:31] LABS: Glucose,Whole Blood 125 mg/dL (75-99)
[2019-10-29 16:18] LABS: Glucose,Whole Blood 142 mg/dL (75-99)
[2019-10-29] MEDS: IPRATROPIUM-ALBUTEROL 3 ML NEB INHALATION SCH (20:01)
[2019-10-29 20:17] LABS: Glucose,Whole Blood 111 mg/dL (75-99)
[2019-10-29] MEDS: LATANOPROST 0.005% OPHTH DROPS 2.5 ML BTL BOTH EYES SCH (21:09)
--- NOTE | 2019-10-29 21:57 | PN ---
PROGRESS NOTE DATE OF SERVICE: 10/29/2019 REASON FOR FOLLOWUP: Abdominal abscess from a ruptured sigmoid diverticulitis. INTERVAL HISTORY: Patient is currently afebrile. The patient is breathing comfortably. Still complains of some abdominal pain but no worsening compared to yesterday. Denies having any nausea, no vomiting, and did have output in her colostomy bag. PHYSICAL EXAMINATION: Blood pressure is 152/79, pulse of 83, temperature is 98.2. She is 97% on room air. General description is a middle-aged female lying in bed in no distress. Respiratory system: Unlabored breathing. Clear to auscultation anteriorly. Heart S1, S2. Regular rate and rhythm. ABDOMEN: Soft, mildly tender. No guarding. No rigidity. LABS: Hemoglobin is 10.8, white count 14.8 with BUN of 15, creatinine 0.69. DIAGNOSTIC IMPRESSION AND PLAN: Patient with an abdominal abscess from a perforated diverticulitis status post diverting colostomy and drainage of the abscess. Abdominal culture with Citrobacter, Klebsiella, and currently on Zosyn. White count did show downward trend. CT did show a thin-walled fluid collection and we will monitor closely. Continue the patient on Zosyn for at least [address] weeks with a repeat [address] scan at that point. Continue supportive care. MMODL / IJN: [id number] /
[2019-10-30] MEDS: HEPARIN SODIUM,PORCINE 5,000 UNIT/ML 1 ML VIAL SQ SCH ×2 (00:20→07:36)
[2019-10-30] MEDS: PIPERACILLIN-TAZOBACTAM 3.375 GM in SODIUM CHLORIDE 0.9% 100 ML IVPB SCH ×2 (00:21→08:02)
[2019-10-30] MEDS: traMADol 50 MG TAB PO PRN ×2 (00:21→08:02)
[2019-10-30] MEDS: HYDROmorphone 1 MG/ML 1 ML SYRINGE IVP PRN (03:14)
[2019-10-30] MEDS: METOCLOPRAMIDE 5 MG/ML 2 ML VIAL IVP PRN (03:38)
[2019-10-30 07:05] LABS: Glucose,Whole Blood 101 mg/dL (75-99)
[2019-10-30] MEDS: INSULIN ASPART (NovoLOG) 100 UNIT/ML VIAL SQ SCH (07:34)
--- NOTE | 2019-10-30 07:34 | P.DS ---
Providers Date of admission: 10/17/19 01:36 Expected date of discharge: 10/30/19 Attending physician: Connor Alvarez Consults: 10/17/19 07:26 Consult Physician Routine Consulting Provider: Michelle Ontiveros Consult Reason/Comments: diverticulitis Do you want consulting provider notified?: Yes 10/22/19 05:42 Consult Physician Routine Consulting Provider: Phillip Stone Consult Reason/Comments: Perforated diverticulitis/peritonitis Do you want consulting provider notified?: Yes [facility] Course: This is a 59-year-old female patient of Dr. Alvarez and Dr. Damico. with past medical history of diabetes mellitus type 2, Curtis granulomatosis, gastroesophageal reflux disease, hypertension. Patient presented to [facility] due to abdominal pain as well as diarrhea that it going on for 3 weeks. She has at least 1 loose stool daily. Yesterday she developed nausea and vomiting as well as lower abdominal pain. No fever or chills. No shortness of breath, chest pain, headache. Patient came into [facility] emergency center for evaluation and found to be afebrile, heart rate 90, blood pressure 153/81, pulse ox 94% on room air. WBC 14.7, hemoglobin 12.8, platelet count 385. Sodium 138, potassium 3.4, chloride 101, CO2 26, BUN 20 creatinine 0.94. Blood sugar 132. Lactic acid 1.5. Total bilirubin 0.5, AST 29, ALT 52, alkaline phosphatase 69. Lipase 1682. Urinalysis clear with nitrate and leukoesterase negative. CAT scan of the abdomen and pelvis with contrast revealed sigmoid diverticula with focal diverticulitis in the distal sigmoid colon. Normal appendix. Numerous nonobstructed bilateral renal calculi. Patient was given 1 L of IV fluids, Zofran, morphine with improvement of her pain and admitted to the MedSur floor. Consult with general surgery regarding diverticulitis. Patient is currently on clear liquid diet. COVID-19 testing in process. 10/17: Still complaining of increase pain in the abdomen today, there is no nausea or vomiting we will continue with IVF and we will change to add KCL , we will keep NPO , reevaluate in 24 hours, surgery consult appreciated, there is no chest pain or shortness of breath, no coughing, she has not had any bowel movements , she is passing gas. 10/18: Patient is laying down in bed she continues to have increased pain left l ower quadrant, she continues to spit up some sputum, she has no chest pain or any shortness breath at this time, she has not had any bowel movement. She was started on clear liquid diet however she did not get anything yet beside water and ice, she seems clinically better she continues to be hypokalemic we will replace again. We will increase her IV fluids to 100 mL an hour. 10/19: Patient has been seen by Dr. Ontiveros this morning. She has had a few bowel movements in the past 24 hours. She states she has had no vomiting for greater than 24 hours since about 5:30 in the morning on Sunday which she relates to potassium. Her abdomen is toll gate tender with bloating but much improved. She states she slept okay during the night. Repeat potassium today is at 3 and will be replaced. Repeat potassium and magnesium level to be done at 7 PM. IV fluids decreased to 75 mL per hour. Patient has been afebrile, heart rate 88, blood pressure 170/91, pulse ox 96% on room air. A repeat blood work reveals hemoglobin 9.9, WBC 7.9. Blood sugars running between 129 and 134. Creatinine 0.7. Anticipate probable discharge tomorrow. 10/20: The patient was anticipating discharge home today but she still had abdominal distention. Urgent Abdominal x-ray was ordered which did show significant amount of abdominal distention. Patient was made nothing by mouth and Dr. Ontiveros was contacted by Dr. Alvarez regarding concerns for perforation. Patient has been scheduled for exploratory laparotomy for today. Patient has been afebrile, heart rate 89, blood pressure 172/104. A repeat blood work reveals sodium 137, potassium 3.2, chloride 104, CO2 27, BUN 13 and creatinine 0.67. 10/21: Yesterday, patient underwent exploratory laparotomy and Dong procedure for perforated diverticulitis pneumoperitoneum. The patient is currently on Unasyn. Incentive spirometry and KRYSTAL hose will be added. Patient has JUAN JOSÉ drain in place with blood-tinged serous drainage. She is complaining of significant pain and Dilaudid increased frequency to every 2 hours. She is on clear liquids. Murray catheter is in place. She has been afebrile, heart rate 104, blood pressure 173/91, pulse ox 97% on room air. Capillary blood glucose running between 108 - 141. Repeat blood work reveals WBC 10, hemoglobin 11.1, platelet count 464. Sodium 138, potassium 3.0, chloride 102, CO2 28, BUN 13, creatinine 0.71. Blood cultures are in progress. 10/22: The patient was seen by Dr. Stone and antibiotics changed to Zosyn. Wound cultures gram-negative bacilli. Patient was seen by Dorie Thomas yesterday for ostomy teaching. She is currently on clear liquid diet. Pain has been mostly 78 through the night. She does complain of some right-sided abdominal pain that is new over the last half hour. She complains of nausea and also lower extremity edema. Murray cath remains in place with good output. She has been afebrile, heart rate 104, blood pressure 173/79, pulse ox 95% on room air. Blood sugars running between 130s to 154. Potassium is 2.6 and being replaced and recheck potassium in the evening. WBC 10.9, hemoglobin 9.6. Solu-Cortef decrease to 50 mg IV every 8 hours. 10/23: Patient's pain is better controlled today. She is tolerating clear liquids and enjoying chicken broth this morning. There is gas in her colostomy bag. Murray is out and patient has been able to void on her own. JUAN JOSÉ drain remains in place with serosanguineous drainage. There is currently no IV access and patient was told multiple times during the night to start an IV. Midline will be ordered. Blood pressure is elevated this morning most likely due to stress. Blood pressure 195/94, heart rate 88, pulse ox 97% on room air. Diet to be advanced to full liquids today, increase activity and continue IV antibiot ics. 81: Patient is feeling a lot better today she denies any chest pain or shortness breath, she has no coughing she has no fever or chills, her stoma is working very well, she has less swelling both lower extremities today, she slept well yesterday, she has a mid line in the right upper extremity. 8/2: Doing much better today she denies any chest pain or shortness of breath, she has no abdominal pain, her pain is well-controlled, she is tolerating her regular diet very well, the plan is to transfer to extended care facility for IV anabiotic hopefully [facility] in the next 1 or 2 days. 10/26: The patient is seen today in follow-up. She has been afebrile, heart rate 70, blood pressure 191/99 and pulse ox 98% on room air. Lisinopril increased for better blood pressure control. Repeat blood work reveals WBC 13.7, hemoglobin 10.4, platelet count 642. Potassium 3.2 and will be replaced. Blood sugar 134. Total bilirubin 0.5, AST 47, ALT 61, alkaline phosphatase 138. She does have some right upper quadrant pain but this is improving. No nausea. Patient is tolerating regular diet. She has output of stool and gas from colostomy. JUAN JOSÉ drain remains in place. Patient did have a midline inserted last week which is functioning. Dr. Stone is recommending IV Zosyn for 2 week course at the residential. Patient stated that she did not think she could manage IV antibiotics at home and also has increased weakness from being hospitalized and in bed during this admission. She is requesting subacute rehab. Discharge plan is to [facility]. Patient will be discharged once all arrangements are completed. 10/27: Patient is laying down in bed, she had x-rays of hypertension yesterday we had to give her hydralazine 10 mg IV push, she was started on metoprolol 25 mg orally twice every day increase her lisinopril to 40 mg once every day and then we will continue to monitor the patient she was seen earlier by general surgery and her stoma appears to be dusky and she will be kept in the hospital for another 24 hours, she will be staying on liquid diet for now. We will cancel the discharge for today. 10/28:Patient is sitting up in bed in no acute distress, she still have pain in th e abdomen and her antibiotocs were swtched back and forth and now on Zosyn again, no chest pain or shortness of breath, she continues to have dusky stoma, we will obtain a ct scan of the abdomen and pelvis with contrast for evaluation, she will stay in the hospital for another 24 hours. 10/29: Patient is found sitting up in bed and appears to be in no acute distress. She states she is feeling much better. She states this is the best she has felt since admission. She underwent a CAT scan of the abdomen and pelvis done yesterday with contrast that revealed interval diverging colostomy. Nonspecific fluid and gas stranding along with colonic wall thickening as detailed above could reflect product of recent surgery or persistent new inflammatory change. Thin walled fluid collections noted as detailed above also nonspecific. Dr. mosley continues to recommend Zosyn for 2 week period. JUAN JOSÉ drain is no serous fluid. Repeat blood work reveals W BC 12.4, hemoglobin 10.1, platelet count 717. Electrolytes normal including potassium of 3.6. BUN 14 and creatinine 0.66. Blood sugars are running between 101 and 142. ALT 56. Patient will be discharged to [facility] today in stable condition. Note that Russell has been changed to tramadol for discharge. Discharge diagnoses: 1. Acute diverticulitis. 2. Pneumoperitoneum and acute peritonitis secondary to perforated diverticulitis status post exploratory laparotomy and Dong procedure with Dr. Ontiveros. 3. Hypokalemia status post replacement. 4. COPD without exacerbation. 5. Adrenal insufficiency disorder. 6. History of Curtis granulomatosis. 7. GERD. 8. Hyperglycemia. 9. Chronic tobacco use and dependence--patient quit July 2018. 10. Hypertension. 11. Recurrent depression. 12. COVID-19 infection not present. Discharge plan: [facility] for subacute rehab and IV antibiotics Impression and plan of care have been directed as dictated by the signing physician. Lanette Mccarthy nurse practitioner acting as scribe for signing physician. Patient Condition at Discharge: Good Plan - Discharge Summary Discharge Rx Participant: No New Discharge Prescriptions: New prednisoLONE ACETATE 1% OPHTH [Pred Forte 1%] 1 drops BOTH EYES Q24H ml cycloSPORINE 0.05% OPHTH SOLN [Restasis] 1 drops BOTH EYES Q12HR droperette Latanoprost Ophth [Xalatan 0.005%] 1 drops BOTH EYES HS ml lisinopriL [Zestril] 40 mg PO DAILY #60 tab Piperacillin-Tazobactam [Zosyn] 3.375 gm IVPB Q6H #84 bag Metoprolol Tartrate [Lopressor] 50 mg PO BID tab amLODIPine [Norvasc] 5 mg PO DAILY tab traMADol HCl [Ultram] 50 mg PO Q4HR PRN #18 tab PRN Reason: Pain Control Potassium Chloride ER [K-Dur 20] 20 meq PO DAILY #30 tab Continue Pantoprazole Sodium [Protonix] 40 mg PO DAILY Calcium Carbonate/Vitamin D3 [Calcium 600-Vit D3 200 Tablet] 1 tab PO BID Hydrocortisone 25 mg PO DAILY Hydrocortisone [Cortef] 15 mg PO DAILY@1500 Budesonide-Formot 160-4.5 Mcg [Symbicort 160-4.5 Mcg Inhaler] 2 puff INHALATION RT-BID Cholecalciferol [Vitamin D3 (25 Mcg = 1000 Iu)] 5,000 unit PO DAILY DULoxetine HCL [Cymbalta] 20 mg PO DAILY Albuterol Sulfate [Ventolin HFA] 2 puff INHALATION RT-Q4H PRN PRN Reason: Shortness Of Breath Ipratropium-Albuterol Nebulize [Duoneb 0.5 mg-3 mg/3 ml Soln] 3 ml INHALATION RT-HS Discontinued Ondansetron HCl [Zofran] 4 mg PO BID PRN PRN Reason: Nausea And Vomiting lisinopriL 20 mg PO DAILY Mirabegron [Myrbetriq] 50 mg PO DAILY Ibuprofen 600 mg PO TID Hydrochlorothiazide [hydroCHLOROthiazide] 12.5 mg PO DAILY Nature's Plus Ultra Juice Greens 1 tab PO BID Discharge Medication List Pantoprazole Sodium [Protonix] 40 mg PO DAILY 08/22/18 [History] Calcium Carbonate/Vitamin D3 [Calcium 600-Vit D3 200 Tablet] 1 tab PO BID 01/05/19 [History] Hydrocortisone 25 mg PO DAILY 06/06/19 [History] Hydrocortisone [Cortef] 15 mg PO DAILY@1500 06/06/19 [History] Budesonide-Formot 160-4.5 Mcg [Symbicort 160-4.5 Mcg Inhaler] 2 puff INHALATION RT-BID 06/09/19 [History] Albuterol Sulfate [Ventolin HFA] 2 puff INHALATION RT-Q4H PRN 10/16/19 [History] Cholecalciferol [Vitamin D3 (25 Mcg = 1000 Iu)] 5,000 unit PO DAILY 10/16/19 [History] DULoxetine HCL [Cymbalta] 20 mg PO DAILY 10/16/19 [History] Ipratropium-Albuterol Nebulize [Duoneb 0.5 mg-3 mg/3 ml Soln] 3 ml INHALATION RT-HS 10/16/19 [History] Latanoprost Ophth [Xalatan 0.005%] 1 drops BOTH EYES HS ml 10/27/19 [Rx] Piperacillin-Tazobactam [Zosyn] 3.375 gm IVPB Q6H #84 bag 10/27/19 [Rx] cycloSPORINE 0.05% OPHTH SOLN [Restasis] 1 drops BOTH EYES Q12HR droperette 10/27/19 [Rx] lisinopriL [Zestril] 40 mg PO DAILY #60 tab 10/27/19 [Rx] prednisoLONE ACETATE 1% OPHTH [Pred Forte 1%] 1 drops BOTH EYES Q24H ml 10/27/19 [Rx] Metoprolol Tartrate [Lopressor] 50 mg PO BID tab 10/30/19 [Rx] Potassium Chloride ER [K-Dur 20] 20 meq PO DAILY #30 tab 10/30/19 [Rx] amLODIPine [Norvasc] 5 mg PO DAILY tab 10/30/19 [Rx] traMADol HCl [Ultram] 50 mg PO Q4HR PRN #18 tab 10/30/19 [Rx] Follow up Appointment(s)/Referral(s): Connor Alvarez MD [Primary Care Provider] - 1 Week (at [facility]) Greta James MD [STAFF PHYSICIAN] - 11/04/19 10:00 am [facility], [NON-STAFF] - Michelle Ontiveros DO [Doctor of Osteopathic Medicine] - 1 Week Phillip Stone MD [STAFF PHYSICIAN] - 2 Weeks Patient Instructions/Handouts: Diverticulitis (ED), Colostomy Care (GEN), Diverticulitis Diet (ED) Activity/Diet/Wound Care/Special Instructions: Colostomy care recommendations for Home Date of last pouching system change: [facility] is supplying Ms Carlisle the following osotmy care supplies for home as follows: [employer]vate[employer] one piece cut to fit system #[id number] (three for home) No sting prep pads (12) Tuan seal (4) from home Apply to skin crease area on abdomen prior application of pouching system Ostomy powder (1) Please note Coloplast #[id number] pouching system with filter (3) sent home with patient in the event flat pouching system does nto provide a sealed system Ms Maylin is to empty the pouching system when it is 1/3 to 1/2 full Change the entire pouching system every 3-5 days Discharge Disposition: TRANSFER TO SNF/ECF
[2019-10-30 08:07] LABS: ALT 56 U/L (4-34); AST 31 U/L (14-36); African American GFR (CKD) >90 (>60 ml/min/1.73 sqM); Albumin 3.2 g/dL (3.5-5.0); Alkaline Phosphatase 100 U/L (38-126); Anion Gap 5 mmol/L; Blood Urea Nitrogen 14 mg/dL (7-17); Calcium 8.5 mg/dL (8.4-10.2); Carbon Dioxide 28 mmol/L (22-30); Chloride 104 mmol/L (98-107); Glucose 102 mg/dL (74-99); Non-African American GFR(CKD) >90 (>60 ml/min/1.73 sqM); Potassium 3.6 mmol/L (3.5-5.1); Sodium 137 mmol/L (137-145); Total Bilirubin 0.4 mg/dL (0.2-1.3); Total Protein 5.3 g/dL (6.3-8.2)
[2019-10-30 08:16] LABS: Basophils # (A) 0.1 k/uL (0-0.2); Basophils % (A) 1 %; Eosinophils # (A) 0.2 k/uL (0-0.7); Eosinophils % (A) 1 %; HCT 32.6 % (34.0-46.0); HGB 10.1 gm/dL (11.4-16.0); Hypochromasia Slight; Lymphocytes # (A) 2.3 k/uL (1.0-4.8); Lymphocytes % (A) 18 %; MCH 28.5 pg (25.0-35.0); MCHC 31.1 g/dL (31.0-37.0); MCV 91.6 fL (80.0-100.0); Mean Platelet Volume 7.1; Monocytes # (A) 0.6 k/uL (0-1.0); Monocytes % (A) 5 %; Neutrophils # (A) 9.3 k/uL (1.3-7.7); Neutrophils % (A) 74 %; Platelet Count 717 k/uL (150-450); RBC 3.56 m/uL (3.80-5.40); RDW 14.9 % (11.5-15.5); WBC 12.4 k/uL (3.8-10.6)
[2019-10-30 08:20] VITALS: BP 171/74; PULSE 65; RESP 18; TEMP 97.9
[2019-10-30] MEDS: SYMBICORT 160-4.5 MCG INHALER INHALATION SCH (08:24)
[2019-10-30] MEDS: prednisoLONE ACETATE 1% OPHTH DROPS 5 ML BTL BOTH EYES SCH (09:41)
[2019-10-30] MEDS: DULoxetine HCL 20 MG CAPSULE.DR PO SCH ×2 (09:41→09:43)
[2019-10-30] MEDS: PANTOPRAZOLE 40 MG TABLET PO SCH (09:43)
[2019-10-30] MEDS: amLODIPine 5 MG TAB PO SCH (09:43)
[2019-10-30] MEDS: METOPROLOL TARTRATE 50 MG TAB PO SCH (09:43)
[2019-10-30] MEDS: lisinopriL 20 MG TAB PO SCH (09:44)
[2019-10-30] MEDS: SIMETHICONE 40 MG/0.6 ML DROPS 2,000 MG/30 ML BOTTLE PO SCH (09:45)
[2019-10-30] MEDS: cycloSPORINE 0.05% OPHTH 0.4 ML DROPERETTE BOTH EYES SCH (09:46)
[2019-10-30] MEDS: HYDROCORTISONE 10 MG TAB PO SCH (10:22)
[2019-10-30] MEDS ORDERED: traMADol 50 MG TAB PO STA (11:17)
--- NOTE | 2019-10-30 11:43 | P.PN ---
Subjective Progress Note Date: 10/30/19 Patient seen and examined at bedside. States she is feeling much better. Continues to have ostomy output. Objective - Vital Signs Vital signs: Vital Signs Temp 97.9 F 10/30/19 08:19 Pulse 65 10/30/19 08:19 Resp 18 10/30/19 08:19 BP 171/74 10/30/19 08:19 Pulse Ox 98 10/30/19 08:19 Intake & Output 10/29/19 10/30/19 10/30/19 18:59 06:59 18:59 Intake Total 910 Output Total 50 20 Balance 860 -20 Intake: Oral 910 Output: Drainage 50 20 Abdomen 50 20 Other: # Voids 1 # Bowel Movements 1 - Constitutional General appearance: Present: cooperative, no acute distress - Gastrointestinal Gastrointestinal Comment(s): Soft, appropriate tenderness, nondistended, no rebound, no guarding, ostomy site unchanged exam, midline incision clean, dry and intact - Labs CBC & Chem 7: 10/30/19 07:32 10/30/19 07:32 Labs: Abnormal Lab Results - Last 24 Hours (Table) 10/29/19 10/29/19 10/30/19 Range/Units 16:16 20:16 07:03 WBC (3.8-10.6) k/uL RBC (3.80-5.40) m/uL Hgb (11.4-16.0) gm/dL Hct (34.0-46.0) % Plt Count (150-450) k/uL Neutrophils # (1.3-7.7) k/uL Glucose (74-99) mg/dL POC Glucose (mg/dL) 142 H 111 H 101 H (75-99) mg/dL ALT (4-34) U/L Total Protein (6.3-8.2) g/dL Albumin (3.5-5.0) g/dL 10/30/19 10/30/19 Range/Units 07:32 07:32 WBC 12.4 H (3.8-10.6) k/uL RBC 3.56 L (3.80-5.40) m/uL Hgb 10.1 L (11.4-16.0) gm/dL Hct 32.6 L (34.0-46.0) % Plt Count 717 H (150-450) k/uL Neutrophils # 9.3 H (1.3-7.7) k/uL Glucose 102 H (74-99) mg/dL POC Glucose (mg/dL) (75-99) mg/dL ALT 56 H (4-34) U/L Total Protein 5.3 L (6.3-8.2) g/dL Albumin 3.2 L (3.5-5.0) g/dL Assessment and Plan (1) Diverticulitis Narrative/Plan: 59-year-old female postoperative, exploratory laparotomy and Matos's procedure secondary to perforated diverticulitis - Ostomy nurse has been consulted for ostomy education, she has met with the patient - Ostomy exam performed with dilation, yellow color likely from venous congestion vs mild ischemia. Healthy tissue noted 1cm proximal to stoma. Continue ostomy care. - Continue IV antibiotics, ID has provided recommendations. Leukocytosis improved compared to yesterday. - Continue diet as tolerated - Pain control with narcotic pain medication and Toradol - Increase activity - Continue medical care for medical comorbidities. I discussed this in depth with the patient. There is significant concern about wound healing and postoperative infection secondary to the patient's history of chronic steroid use along with Rituxan use for Daniel's. She states that her last Rituxan dose was in April of this year. We will closely monitor the patient's progress with wound healing and for postoperative infection based on her clinical progress. - CT of the abdomen and pelvis performed yesterday and reviewed. Inflammatory changes around the stoma are noted, this is likely postoperative. No fluid collection around the drain site. Therefore, drain will be removed prior to the patient's discharge. Patient does have impending discharge to rehab facility today and is surgically stable for this. We'll continue to monitor additional small fluid collection and ID recommendations on outpatient antibiotics. Patient does have taken place for outpatient IV antibiotics. - Will continue to follow and make recommendations based on the patient's clinical progress. Current Visit: Yes Status: Acute Code(s): K57.92 - DVTRCLI OF INTEST, PART UNSP, W/O PERF OR ABSCESS W/O BLEED SNOMED Code(s): 145117501
--- NOTE | 2019-10-31 14:23 | CDI ---
Documentation Clarification Form Date: 10/31/19 From: Eladia Gomez CCS Phone: If you have a question about this query, please contact Sandra Ruff, Equipment Maintenance Tech at [phone] between 8am and 5pm. Admit Date: 10/17/19 Discharge Date:10/30/19 Patient Name: Laquita Carlisle Visit Number: [id number] ATTENTION: The Clinical Documentation Specialists (CDI) and [facility] Coding Staff appreciate your assistance in clarifying documentation. Please respond to the clarification below the line at the bottom and electronically sign. The CDI & [facility] Coding staff will review the response and follow-up if needed. Please note: Queries are made part of the Legal Health Record. If you have any questions, please contact the author of this message via ITS. Dear Dr. Alvarez, The diagnosis sepsis was documented in the record, but is not noted in subsequent documentation. ID Consult documents: Patient presented to hospital with sepsis in this patient did have a fever and elevated white count source was acute sigmoid diverticulitis that apparently has failed to respond to medical therapy with perforation History/Risk Factors: Perforated diverticulitis, Curtis's, Obesity, HTN, DM, COPD Clinical Indicators: Leukocytosis, Abscess Labs: WBC 14.7, 11.6- Lactic Acid 1.5 Vitals: Temp 99.1, OH 90, BP 153/81, RR 16, O2 Sat 94 Treatment: Unasyn 3 gm IVPB Q6H, Maxipime 2 gm IVPB Q12HR, Zosyn 3.375 gm IVPB Q8HR Please clarify if the sepsis was Sepsis, POA Sepsis, Not POA Sepsis Ruled out Other, please specify Clinically unable to determine Sepsis present on admission MTDD
--- NOTE | 2019-10-31 15:18 | P.PN ---
Progress Note - Text Progress Note Date: 10/30/19 REASON FOR FOLLOWUP: Abdominal abscess from a ruptured sigmoid diverticulitis. INTERVAL HISTORY: Patient remains to be afebrile. The patient is breathing comfortably. Patient abdominal pain has decreased in intensity. The patient denies having any nausea, no vomiting, and did have output in her colostomy bag. PHYSICAL EXAMINATION: Blood pressure is 171/74, pulse of 83, temperature is 98.2. She is 97% on room air. General description is a middle-aged female lying in bed in no distress. R espiratory system: Unlabored breathing. Clear to auscultation anteriorly. Heart S1, S2. Regular rate and rhythm. ABDOMEN: Soft, mildly tender. No guarding. No rigidity. LABS: Hemoglobin is 10.1, white count 12.4 with BUN of 15, creatinine 0.69. DIAGNOSTIC IMPRESSION AND PLAN: Patient with an abdominal abscess from a perforated diverticulitis status post diverting colostomy and drainage of the abscess. Abdominal culture with Citrobacter, Klebsiella, and currently on Zosyn. CT did show a thin-walled fluid collection , patient white count Is down to 12k , pt to be continued on Zosyn for another 2 weeks with a repeat CAT scan before finishing antibiotic therapy
== END 2019-10-30 11:43 | DRG 853 ==
LOC: EC 20:54 → 4SSUR 10-17 01:36
PROVIDERS: ADMIT Internal Medicine; ATTEND Internal Medicine
PROC: 0DBN0ZZ Excision of Sigmoid Colon, Open Approach (ICD-10-PCS; principal; 2019-10-21 08:30)
PROC: 0D1N0Z4 Bypass Sigmoid Colon to Cutaneous, Open Approach (ICD-10-PCS; principal; 2019-10-21 08:30)
PROC: 05HB33Z Insertion of Infusion Device into Right Basilic Vein, Percutaneous Approach (ICD-10-PCS; 2019-10-24 09:35)
DX: A41.59 Other Gram-negative sepsis (principal); K65.1 Peritoneal abscess; M31.30 Wegener's granulomatosis without renal involvement; K57.20 Diverticulitis of large intestine with perforation and abscess without bleeding; E27.40 Unspecified adrenocortical insufficiency; F33.9 Major depressive disorder, recurrent, unspecified; Z11.59 Encounter for screening for other viral diseases; I11.9 Hypertensive heart disease without heart failure; E11.65 Type 2 diabetes mellitus with hyperglycemia; J44.9 Chronic obstructive pulmonary disease, unspecified; K21.9 Gastro-esophageal reflux disease without esophagitis; R74.8 Abnormal levels of other serum enzymes; N20.0 Calculus of kidney; E86.0 Dehydration; E66.9 Obesity, unspecified; E87.6 Hypokalemia; I25.2 Old myocardial infarction; Z68.34 Body mass index [BMI] 34.0-34.9, adult; Z71.3 Dietary counseling and surveillance; Z79.899 Other long term (current) drug therapy; Z79.51 Long term (current) use of inhaled steroids; Z79.52 Long term (current) use of systemic steroids; Z92.21 Personal history of antineoplastic chemotherapy; Z90.2 Acquired absence of lung [part of]; Z87.81 Personal history of (healed) traumatic fracture; Z98.890 Other specified postprocedural states; Z87.891 Personal history of nicotine dependence; Z88.1 Allergy status to other antibiotic agents; Z88.5 Allergy status to narcotic agent; Z88.8 Allergy status to other drugs, medicaments and biological substances; Z82.49 Family history of ischemic heart disease and other diseases of the circulatory system; Z84.1 Family history of disorders of kidney and ureter; Z81.8 Family history of other mental and behavioral disorders; Z83.79 Family history of other diseases of the digestive system
CPT/HCPCS: 36410; 36415; 71045; 74019; 74177; 76937; 80048; 80053; 81003; 82150; 83605; 83690; 83735; 84132; 85025; 85027; 87070; 87075; 87077; 87186; 87205; 87635; 88307; 94640; 96361; 96374; 96375; 99285

== ENCOUNTER 2019-11-04 11:20 | Inpatient (IN) | payer BC ==
[2019-11-04] MEDS ORDERED: ONDANSETRON 4 MG/2 ML VIAL IVP STA (11:42)
[2019-11-04] MEDS ORDERED: SODIUM CHLORIDE 0.9% 1,000 ML IV STA ×2 (11:42)
[2019-11-04] MEDS ORDERED: PANTOPRAZOLE 40 MG/10 ML VIAL IVP STA (11:42)
[2019-11-04] MEDS ORDERED: MORPHINE SULFATE 4 MG/ML SYRINGE IV STA (11:42)
[2019-11-04] MEDS ORDERED: ACETAMINOPHEN TAB 500 MG TAB PO STA (11:42)
--- NOTE | 2019-11-04 11:51 | ED ---
Abdominal Pain HPI - General Chief Complaint: Abdominal Pain Stated Complaint: abd pain Time Seen by Provider: 11/04/19 11:23 Source: patient, EMS, RN notes reviewed, old records reviewed Mode of arrival: EMS Limitations: no limitations - History of Present Illness Initial Comments: Patient is a 59-year-old female who presents the emergency department today for evaluation for concerns for resting abdominal pain and evidence of bloody stools from her ostomy output for the past few days. She reports she started noticed bloody stools on Sunday. Patient states that she is currently at extended care [facility]hab facility for current IV antibiotics related to perforated diverticulitis. Patient reports that she's also had some hot sweats for the past day. She is a low-grade temperature today 100.2. She denies any cough or upper respiratory symptoms. Her main complaint is continued abdominal pain. Patient's surgeon is Dr. Ontiveros. Denies any change in urination. - Related Data Home Medications Medication Instructions Recorded Confirmed Pantoprazole Sodium [Protonix] 40 mg PO DAILY@0600 08/22/18 11/04/19 Calcium Carbonate/Vitamin D3 1 tab PO BID@0800,1700 01/05/19 11/04/19 [Calcium 600-Vit D3 200 Tablet] Hydrocortisone 25 mg PO DAILY@0800 06/06/19 11/04/19 Hydrocortisone [Cortef] 15 mg PO DAILY@1500 06/06/19 11/04/19 Budesonide-Formot 160-4.5 Mcg 2 puff INHALATION RT-BID 06/09/19 11/04/19 [Symbicort 160-4.5 Mcg Inhaler] Albuterol Sulfate [Ventolin HFA] 2 puff INHALATION RT-Q4H PRN 10/16/19 11/04/19 Cholecalciferol [Vitamin D3 (25 5,000 unit PO DAILY@1700 10/16/19 11/04/19 Mcg = 1000 Iu)] DULoxetine HCL [Cymbalta] 20 mg PO DAILY@0800 10/16/19 11/04/19 Ipratropium-Albuterol Nebulize 3 ml INHALATION RT-HS@209910/16/19 11/04/19 [Duoneb 0.5 mg-3 mg/3 ml Soln] Latanoprost Ophth [Xalatan 0.005%] 1 drop BOTH EYES HS@2100 11/04/19 11/04/19 Magnesium Hydroxide [Milk of 7,200 mg PO Q48H PRN 11/04/19 11/04/19 Magnesia Concentrate] Metoprolol Tartrate [Lopressor] 50 mg PO BID@0800,1700 11/04/19 11/04/19 Na Phos,M-B/Na Phos,Di-Ba [Fleet 133 ml RECTAL DAILY PRN 11/04/19 11/04/19 Adult] Ondansetron [Zofran] 4 mg PO Q6H PRN 11/04/19 11/04/19 Potassium Chloride ER [K-Dur 20] 20 meq PO DAILY@1700 11/04/19 11/04/19 amLODIPine [Norvasc] 5 mg PO DAILY@0800 11/04/19 11/04/19 bisacodyL [Bisacodyl] 10 mg RECTAL DAILY PRN 11/04/19 11/04/19 cycloSPORINE 0.05% OPHTH SOLN 1 drop BOTH EYES Q12HR 11/04/19 11/04/19 [Restasis] lisinopriL 40 mg PO DAILY@0800 11/04/19 11/04/19 prednisoLONE ACETATE 1% OPHTH 1 drops BOTH EYES DAILY@0800 11/04/19 11/04/19 [Pred Forte 1%] traMADol HCl [Ultram] 50 mg PO Q4H PRN 11/04/19 11/04/19 Previous Rx's Medication Instructions Recorded Piperacillin-Tazobactam [Zosyn] 3.375 gm IVPB Q6H #84 bag 10/27/19 Allergies Allergy/AdvReac Type Severity Reaction Status Date / Time azathioprine [From Imuran] Allergy Vomiting Verified 11/04/19 15:13 codeine Allergy Nausea Verified 11/04/19 15:13 metronidazole [From Flagyl] Allergy Anaphylaxis Verified 11/04/19 15:13 methotrexate AdvReac Unknown Verified 11/04/19 15:13 Review of Systems ROS Statement: Those systems with pertinent positive or pertinent negative responses have been documented in the HPI. ROS Other: All systems not noted in ROS Statement are negative. Past Medical History Past Medical History: Diabetes Mellitus, GERD/Reflux, Hypertension, Myocardial Infarction (MS), Respiratory Disorder Additional Past Medical History / Comment(s): Hx. of Curtis's. Chemo for Wegeners, endometriosis, ovarian cysts, STATES SILENT MS 2016 AND BORDERLINE DM DUE TO CHRONIC PREDNISONE USE. Last Myocardial Infarction Date:: 2016 History of Any Multi-Drug Resistant Organisms: C-DIFF Date of last positivie culture/infection: 2014 MDRO Source:: Stool Past Surgical History: Section Additional Past Surgical History / Comment(s): Right lung resection 2016, L humerus double compound fx repair, colonoscopy, Hemorrhoidectomy. Past Anesthesia/Blood Transfusion Reactions: No Reported Reaction Past Psychological History: No Psychological Hx Reported Smoking Status: Former smoker Past Alcohol Use History: None Reported Past Drug Use History: None Reported - Past Family History Mother Family Medical History: Coronary Artery Disease (CAD) Additional Family Medical History / Comment(s): Mother at age 78 with history of coronary artery disease status post multiple stents. Father Family Medical History: Myocardial Infarction (MS) Additional Family Medical History / Comment(s): Father at age 45 from myocardial infarction. Brother(s) Family Medical History: Hypertension Additional Family Medical History / Comment(s): Patient has 1 brother with hypertension and kidney stones. Sister(s) Family Medical History: No Reported History Additional Family Medical History / Comment(s): Patient has one sister with CHRONIC HYPERCOHDRIA AND GALLSTONES Daughter(s) Family Medical History: No Reported History Additional Family Medical History / Comment(s): Patient has 2 daughters with no major medical problems. General Exam - General Exam Comments Initial Comments: 59 year old female, no distress. Limitations: no limitations General appearance: alert, in no apparent distress Head exam: Present: atraumatic, normocephalic, normal inspection Eye exam: Present: normal appearance, PERRL, EOMI. Absent: scleral icterus, conjunctival injection, periorbital swelling ENT exam: Present: normal exam, mucous membranes moist Neck exam: Present: normal inspection. Absent: tenderness, meningismus, lymphadenopathy Respiratory exam: Present: normal lung sounds bilaterally. Absent: respiratory distress, wheezes, rales, rhonchi, stridor Cardiovascular Exam: Present: regular rate, normal rhythm, normal heart sounds. Absent: systolic murmur, diastolic murmur, rubs, gallop, clicks GI/Abdominal exam: Present: soft, tenderness (mid abdomen and left side. Well appearing midline incision site. ), other (ostomy with bloody stool ). Absent: distended, guarding, rebound, rigid, normal bowel sounds Extremities exam: Present: normal inspection, full ROM, normal capillary refill, other (midline in R arm. ). Absent: tenderness, pedal edema, joint swelling, calf tenderness Back exam: Present: normal inspection Neurological exam: Present: alert, oriented X3, CN II-XII intact Psychiatric exam: Present: normal affect, normal mood Skin exam: Present: warm, dry, intact, normal color. Absent: rash Course Vital Signs 11/04/19 11/04/19 11/04/19 11:22 13:51 15:05 Temperature 100.2 F H 98.2 F 98.4 F Pulse Rate 82 68 Respiratory 18 16 Rate Blood Pressure 144/66 131/61 O2 Sat by Pulse 98 99 Oximetry Medical Decision Making - Medical Decision Making 59-year-old female presents returns today with complaint of nausea vomiting, bloody stool from ostomy output. She was sent by PCP from [address] [place] [address]. She is receiving IV antibiotics of Zosyn for perforated diverticulitis. At this time Patient had a fever 100.2. Patient was given IV fluids labwork obtained. Labs reveal relatively unremarkable. She does have evidence of bloody stool and ostomy output. Patient denies any other significant complaints besides chills and hot sweats. Patient given her noon dose of zosyn in ED. patient's computed tomography scan shows evidence of peritonitis phlegmon appearance of the ostomy site. Discussed this with Dr. Patel who discussed the case with patient's surgeon Dr. Ontiveros. Recommends continuing Zosyn with consult to infectious disease and medicine. - Lab Data Result diagrams: 11/04/19 12:41 11/04/19 12:41 Lab Results 11/04/19 11/04/19 11/04/19 Range/Units 12:41 12:41 12:41 WBC 10.2 (3.8-10.6) k/uL RBC 3.42 L (3.80-5.40) m/uL Hgb 9.6 L (11.4-16.0) gm/dL Hct 31.1 L (34.0-46.0) % MCV 91.0 (80.0-100.0) fL MCH 28.2 (25.0-35.0) pg MCHC 31.0 (31.0-37.0) g/dL RDW 14.3 (11.5-15.5) % Plt Count 692 H (150-450) k/uL Neutrophils % 75 % Lymphocytes % 12 % Monocytes % 9 % Eosinophils % 1 % Basophils % 0 % Neutrophils # 7.7 (1.3-7.7) k/uL Lymphocytes # 1.2 (1.0-4.8) k/uL Monocytes # 0.9 (0-1.0) k/uL Eosinophils # 0.1 (0-0.7) k/uL Basophils # 0.0 (0-0.2) k/uL Hypochromasia Slight PT 9.4 (9.0-12.0) sec INR 0.9 (<1.2) APTT 23.2 (22.0-30.0) sec Sodium 135 L (137-145) mmol/L Potassium 3.6 (3.5-5.1) mmol/L Chloride 100 (98-107) mmol/L Carbon Dioxide 27 (22-30) mmol/L Anion Gap 8 mmol/L BUN 9 (7-17) mg/dL Creatinine 0.74 (0.52-1.04) mg/dL Est GFR (CKD-EPI)AfAm >90 (>60 ml/min/1.73 sqM) Est GFR (CKD-EPI)NonAf 88 (>60 ml/min/1.73 sqM) Glucose 113 H (74-99) mg/dL Plasma Lactic Acid Jacobo (0.7-2.0) mmol/L Calcium 8.8 (8.4-10.2) mg/dL Total Bilirubin 0.4 (0.2-1.3) mg/dL AST 16 (14-36) U/L ALT 24 (4-34) U/L Alkaline Phosphatase 83 (38-126) U/L Total Protein 5.5 L (6.3-8.2) g/dL Albumin 3.2 L (3.5-5.0) g/dL Amylase <30 L (30-110) U/L Lipase 54 (23-300) U/L Urine Color Urine Appearance (Clear) Urine pH (5.0-8.0) Ur Specific [place] (1.001-1.035) Urine Protein (Negative) Urine Glucose (UA) (Negative) Urine Ketones (Negative) Urine Blood (Negative) Urine Nitrite (Negative) Urine Bilirubin (Negative) Urine Urobilinogen (<2.0) mg/dL Ur Leukocyte Esterase (Negative) Stool Occult Blood (Negative) 11/04/19 11/04/19 11/04/19 Range/Units 12:41 13:42 13:42 WBC (3.8-10.6) k/uL RBC (3.80-5.40) m/uL Hgb (11.4-16.0) gm/dL Hct (34.0-46.0) % MCV (80.0-100.0) fL MCH (25.0-35.0) pg MCHC (31.0-37.0) g/dL RDW (11.5-15.5) % Plt Count (150-450) k/uL Neutrophils % % Lymphocytes % % Monocytes % % Eosinophils % % Basophils % % Neutrophils # (1.3-7.7) k/uL Lymphocytes # (1.0-4.8) k/uL Monocytes # (0-1.0) k/uL Eosinophils # (0-0.7) k/uL Basophils # (0-0.2) k/uL Hypochromasia PT (9.0-12.0) sec INR (<1.2) APTT (22.0-30.0) sec Sodium (137-145) mmol/L Potassium (3.5-5.1) mmol/L Chloride (98-107) mmol/L Carbon Dioxide (22-30) mmol/L Anion Gap mmol/L BUN (7-17) mg/dL Creatinine (0.52-1.04) mg/dL Est GFR (CKD-EPI)AfAm (>60 ml/min/1.73 sqM) Est GFR (CKD-EPI)NonAf (>60 ml/min/1.73 sqM) Glucose (74-99) mg/dL Plasma Lactic Acid Jacobo 0.9 (0.7-2.0) mmol/L Calcium (8.4-10.2) mg/dL Total Bilirubin (0.2-1.3) mg/dL AST (14-36) U/L ALT (4-34) U/L Alkaline Phosphatase (38-126) U/L Total Protein (6.3-8.2) g/dL Albumin (3.5-5.0) g/dL Amylase (30-110) U/L Lipase (23-300) U/L Urine Color Yellow Urine Appearance Clear (Clear) Urine pH 6.0 (5.0-8.0) Ur Specific [place] 1.010 (1.001-1.035) Urine Protein Negative (Negative) Urine Glucose (UA) Negative (Negative) Urine Ketones Negative (Negative) Urine Blood Negative (Negative) Urine Nitrite Negative (Negative) Urine Bilirubin Negative (Negative) Urine Urobilinogen <2.0 (<2.0) mg/dL Ur Leukocyte Esterase Negative (Negative) Stool Occult Blood Positive H (Negative) - Radiology Data Radiology results: report reviewed CT shows correlating for peritonitis. Probable phlegmon associated with patient's ostomy site. There is underlying colitis. Possible seroma in the infraumbilical in location anterior the abdominal wall in the subcutaneous fat along the inferior margin of the staple line. Disposition Clinical Impression: Peritonitis, Complication of ostomy Disposition: ADMITTED IP TO THIS HOSP Condition: Good Additional Instructions: Please use medication as discussed. Please follow up with family doctor if symptoms have not improved over the next two days. Please return to the emergency room if your symptoms increase or worsen or for any other concerns. Is patient prescribed a controlled substance at d/c from ED?: No Referrals: Connor Alvarez MD [Primary Care Provider] - 1-2 days Time of Disposition: 15:59
[2019-11-04] MEDS ORDERED: PIPERACILLIN-TAZOBACTAM 3.375 GM in SODIUM CHLORIDE 0.9% 100 ML IVPB STA (12:52)
[2019-11-04 13:00] LABS: Basophils % (A) 0 %; Eosinophils # (A) 0.1 k/uL (0-0.7); Eosinophils % (A) 1 %; HCT 31.1 % (34.0-46.0); HGB 9.6 gm/dL (11.4-16.0); Hypochromasia Slight; Lymphocytes # (A) 1.2 k/uL (1.0-4.8); Lymphocytes % (A) 12 %; MCH 28.2 pg (25.0-35.0); Mean Platelet Volume 6.8; Monocytes # (A) 0.9 k/uL (0-1.0); Monocytes % (A) 9 %; Neutrophils # (A) 7.7 k/uL (1.3-7.7); Neutrophils % (A) 75 %; Platelet Count 692 k/uL (150-450); RBC 3.42 m/uL (3.80-5.40); RDW 14.3 % (11.5-15.5); WBC 10.2 k/uL (3.8-10.6)
[2019-11-04 13:08] LABS: ALT 24 U/L (4-34); AST 16 U/L (14-36); African American GFR (CKD) >90 (>60 ml/min/1.73 sqM); Albumin 3.2 g/dL (3.5-5.0); Alkaline Phosphatase 83 U/L (38-126); Amylase <30 U/L (30-110); Anion Gap 8 mmol/L; Blood Urea Nitrogen 9 mg/dL (7-17); Calcium 8.8 mg/dL (8.4-10.2); Carbon Dioxide 27 mmol/L (22-30); Chloride 100 mmol/L (98-107); Glucose 113 mg/dL (74-99); Non-African American GFR(CKD) 88 (>60 ml/min/1.73 sqM); Potassium 3.6 mmol/L (3.5-5.1); Sodium 135 mmol/L (137-145); Total Bilirubin 0.4 mg/dL (0.2-1.3); Total Protein 5.5 g/dL (6.3-8.2)
[2019-11-04 13:12] LABS: INR 0.9 (<1.2); Partial Thromboplastin Time 23.2 sec (22.0-30.0); Prothrombin Time 9.4 sec (9.0-12.0)
[2019-11-04 14:09] LABS: Appearance,Urine Clear (Clear); Bilirubin,Urine Negative (Negative); Blood,Urine Negative (Negative); Color,Urine Yellow; Glucose,Urine (UA) Negative (Negative); Ketones,Urine Negative (Negative); Leukocyte Esterase,Urine Negative (Negative); Nitrite,Urine Negative (Negative); Protein,Urine Negative (Negative); Urobilinogen,Urine <2.0 mg/dL (<2.0)
--- NOTE | 2019-11-04 15:49 | CT ---
EXAMINATION TYPE: CT abdomen pelvis w con DATE OF EXAM: 11/04/2019 COMPARISON: Prior CT 10/29/2019 HISTORY: Post op fever CT DLP: 1263.7 mGycm Automated exposure control for dose reduction was used. TECHNIQUE: Helical acquisition of images from the lung bases through the pelvis have been completed. CONTRAST: Performed without Oral Contrast and with IV Contrast, patient injected with 100 mL of Isovue 300. FINDINGS: Small collection along the right paracolic gutter is improved, diminished in size, there is thickening of the lateral conal fascia on the left. Inflammatory changes present at the level of the ostomy site and within the mesenteric fat of the left lower quadrant which has progressed somewhat i n the interval, there is some associated colonic wall thickening. The ostomy site there is air within the subcutaneous tissues similar to prior exam. In the infraumbilical location there is a small flui d collection present which was diminutive on prior exam without significant inflammatory change, area measures approximately 2.4 cm x 3.8 cm in cephalad to caudal dimension by 2.4 cm in transverse dimen jennyfer. Indwelling drain on prior exam has been removed. LUNG BASES: Table appearance, probable scarring at the right lung base. AORTA: No significant abnormality is appreciated. LIVER/GB: No significant interval change2 is appreciated. PANCREAS: No significant abnormality is seen. SPLEEN: No significant change is seen. ADRENALS: No significant abnormality is seen. KIDNEYS: No significant change is seen, bilateral nonobstructive calculi are present, there are renal cysts bilaterally. REPRODUCTIVE ORGANS: No significant interval change is seen BOWEL: Postop changes are again seen, contrast fills the appendix. FREE AIR: No Free Air visible. ASCITES: Minimal fluid in the pelvis. PELVIC ADENOPATHY: None visualized. RETROPERITONEAL ADENOPATHY: No Retroperitoneal Adenopathy visible. URINARY BLADDER: No significant abnormality is seen. OSSEOUS STRUCTURES: No significant abnormality is seen. IMPRESSION: CORRELATE FOR PERITONITIS. PROBABLE PHLEGMON ASSOCIATED WITH THE PATIENT'S OSTOMY SITE, THERE MAY BE UNDERLYING COLITIS. POSSIBLE SEROMA IN THE INFRAUMBILICAL LOCATION ANTERIOR TO THE ABDOMINAL WALL IN THE SUBCUTANEOUS FAT ALONG THE INFERIOR MARGIN OF THE STAPLE LINE. ADDITIONAL FINDINGS ABOVE.
[2019-11-04] MEDS ORDERED: NALOXONE 0.4 MG/ML 1 ML VIAL IV PRN (15:59)
[2019-11-04] MEDS: MORPHINE SULFATE 4 MG/ML SYRINGE IV PRN ×2 (17:23→22:08)
[2019-11-04] MEDS ORDERED: bisacodyL 10 MG SUPP RECTAL PRN (19:22)
[2019-11-04] MEDS: traMADol 50 MG TAB PO PRN (19:58)
[2019-11-04] MEDS: cycloSPORINE 0.05% OPHTH 0.4 ML DROPERETTE BOTH EYES SCH (22:09)
[2019-11-04] MEDS: LATANOPROST 0.005% OPHTH DROPS 2.5 ML BTL BOTH EYES SCH (22:09)
[2019-11-04] MEDS: SODIUM CHLORIDE 0.9% 1,000 ML IV SCH (22:10)
[2019-11-04] MEDS: PIPERACILLIN-TAZOBACTAM 3.375 GM in SODIUM CHLORIDE 0.9% 100 ML IVPB SCH (22:10)
[2019-11-05] MEDS: IPRATROPIUM-ALBUTEROL 3 ML NEB INHALATION SCH ×2 (00:44→19:46)
[2019-11-05] MEDS: SYMBICORT 160-4.5 MCG INHALER INHALATION SCH ×3 (00:44→19:46)
[2019-11-05] MEDS: traMADol 50 MG TAB PO PRN ×4 (01:36→21:21)
[2019-11-05] MEDS: MORPHINE SULFATE 4 MG/ML SYRINGE IV PRN ×3 (03:51→12:46)
[2019-11-05] MEDS: PIPERACILLIN-TAZOBACTAM 3.375 GM in SODIUM CHLORIDE 0.9% 100 ML IVPB SCH ×2 (03:52→12:36)
[2019-11-05] MEDS: ONDANSETRON 4 MG TAB PO PRN ×2 (03:56→08:02)
--- NOTE | 2019-11-05 05:30 | P.CONS ---
History of Present Illness - Reason for Consult Consult date: 11/04/19 Medical management Requesting physician: Michelle Ontiveros - Chief Complaint Bleeding stoma/ peritonitis. - History of Present Illness This is a 59-year-old female patient of mine with past medical history of diabetes mellitus type 2, Curtis granulomatosis, gastroesophageal reflux disease, hypertension, patient was recently discharged from [facility] after she was admitted for increased abdominal pain, and diarrhea for 3 weeks prior to her presentation and she initially was found to have sigmoid diverticulitis that was treated with bowel rest and IV antibioics, unfortunately her hospital course was complicated with perforated diverticulitis and peritonitis for which she underwent Matos procedure with colostomy placement, and she was treated with Zosyn and had a midline so she was sent to [facility] last and for the past 3 days she has been complaining of bloody stool and increased abdominal pain and I received a call from my patient stating that she is in pain , so she was sent to the ER at [facility] and had a ct scan of the abdomen and pelvis with contrast that showed possible phlegmon and inflammatory changes at the stoma ite with fluid collection to left and mildy to the right, with increased thickening of the colon, she was maintained on IV Zosyn and she was admitted under General surgery and I was consulted for medical management. Review of Systems Constitutional: Reports chronic pain, Reports fatigue, Reports malaise, Reports weakness, Denies anorexia Eyes: denies blurred vision, denies bulging eye, denies decreased vision Ears, nose, mouth and throat: Denies dysphagia, Denies sore throat Cardiovascular: Denies chest pain, Denies decreased exercise tolerance, Denies lightheadedness, Denies rapid heart beat, Denies shortness of breath, Denies syncope Respiratory: Denies congestion, Denies cough with sputum, Denies home oxygen, Denies sleep apnea, Denies snoring, Denies wheezing Gastrointestinal: Reports abdominal pain, Reports bloating, Reports change in bowel habits, Reports hematochezia, Reports loss of appetite, Reports nausea, Denies excessive gas, Denies heartburn, Denies hematemesis, Denies melena, Denies vomiting Genitourinary: Reports nocturia, Denies dysuria Musculoskeletal: Denies myalgias Musculoskeletal: absent: ankle pain, ankle stiffness, ankle swelling, elbow pain, elbow stiffness, elbow swelling, foot pain, foot stiffness, foot swelling, hand pain, hand stiffness, hand swelling, hip pain, hip stiffness, hip swelling, knee pain, knee stiffness, knee swelling, shoulder pain, shoulder stiffness, shoulder swelling, wrist pain, wrist stiffness, wrist swelling Integumentary: Denies pruritus, Denies rash Neurological: Denies numbness, Denies weakness Psychiatric: Reports anxiety, Reports sadness/tearfulness Endocrine: Denies fatigue, Denies weight change Past Medical History Past Medical History: Diabetes Mellitus, GERD/Reflux, Hypertension, Myocardial Infarction ([place]), Respiratory Disorder Additional Past Medical History / Comment(s): Hx. of Curtis's. Chemo for [place], endometriosis, ovarian cysts, STATES SILENT [place] 2015 AND BORDERLINE DM DUE TO CHRONIC PREDNISONE USE. Last Myocardial Infarction Date:: 2015 History of Any Multi-Drug Resistant Organisms: C-DIFF Year Discovered:: 2014 MDRO Source:: Stool Past Surgical History: Section Additional Past Surgical History / Comment(s): Right lung resection 2016, L humerus double compound fx repair, colonoscopy, Hemorrhoidectomy. Past Anesthesia/Blood Transfusion Reactions: No Reported Reaction Past Psychological History: No Psychological Hx Reported Smoking Status: Former smoker Past Alcohol Use History: None Reported Past Drug Use History: None Reported - Past Family History Mother Family Medical History: Coronary Artery Disease (CAD) Additional Family Medical History / Comment(s): Mother at age 78 with history of coronary artery disease status post multiple stents. Father Family Medical History: Myocardial Infarction ([place]) Additional Family Medical History / Comment(s): Father at age 45 from myocardial infarction. Brother(s) Family Medical History: Hypertension Additional Family Medical History / Comment(s): Patient has 1 brother with hypertension and kidney stones. Sister(s) Family Medical History: No Reported History Additional Family Medical History / Comment(s): Patient has one sister with CHRONIC HYPERCOHDRIA AND GALLSTONES Daughter(s) Family Medical History: No Reported History Additional Family Medical History / Comment(s): Patient has 2 daughters with no major medical problems. Medications and Allergies Home Medications Medication Instructions Recorded Confirmed Type Pantoprazole Sodium [Protonix] 40 mg PO DAILY@0600 08/22/18 11/04/19 History Calcium Carbonate/Vitamin D3 1 tab PO BID@0800,1700 01/05/19 11/04/19 History [Calcium 600-Vit D3 200 Tablet] Hydrocortisone 25 mg PO DAILY@0806/06/19 11/04/19 History Hydrocortisone [Cortef] 15 mg PO DAILY@1500 06/06/19 11/04/19 History Budesonide-Formot 160-4.5 Mcg 2 puff INHALATION RT-BID 06/09/19 11/04/19 History [Symbicort 160-4.5 Mcg Inhaler] Albuterol Sulfate [Ventolin HFA] 2 puff INHALATION RT-Q4H PRN 10/16/19 11/04/19 History Cholecalciferol [Vitamin D3 (25 5,000 unit PO DAILY@169910/16/19 11/04/19 History Mcg = 1000 Iu)] DULoxetine HCL [Cymbalta] 20 mg PO DAILY@79910/16/19 11/04/19 History Ipratropium-Albuterol Nebulize 3 ml INHALATION RT-HS@209910/16/19 11/04/19 History [Duoneb 0.5 mg-3 mg/3 ml Soln] Piperacillin-Tazobactam [Zosyn] 3.375 gm IVPB Q6H #84 bag 10/27/19 11/04/19 Rx Latanoprost Ophth [Xalatan 0.005%] 1 drop BOTH EYES HS@209911/04/19 11/04/19 History Magnesium Hydroxide [Milk of 7,200 mg PO Q48H PRN 11/04/19 11/04/19 History Magnesia Concentrate] Metoprolol Tartrate [Lopressor] 50 mg PO BID@0800,1700 11/04/19 11/04/19 History Na Phos,M-B/Na Phos,Di-Ba [Fleet 133 ml RECTAL DAILY PRN 11/04/19 11/04/19 History Adult] Ondansetron [Zofran] 4 mg PO Q6H PRN 11/04/19 11/04/19 History Potassium Chloride ER [K-Dur 20] 20 meq PO DAILY@0 11/04/19 11/04/19 History amLODIPine [Norvasc] 5 mg PO DAILY@0811/04/19 11/04/19 History bisacodyL [Bisacodyl] 10 mg RECTAL DAILY PRN 11/04/19 11/04/19 History cycloSPORINE 0.05% OPHTH SOLN 1 drop BOTH EYES Q12HR 11/04/19 11/04/19 History [Restasis] lisinopriL 40 mg PO DAILY@0800 11/04/19 11/04/19 History prednisoLONE ACETATE 1% OPHTH 1 drops BOTH EYES DAILY@0800 11/04/19 11/04/19 History [Pred Forte 1%] traMADol HCl [Ultram] 50 mg PO Q4H PRN 11/04/19 11/04/19 History Allergies Allergy/AdvReac Type Severity Reaction Status Date / Time azathioprine [From Imuran] Allergy Vomiting Verified 11/04/19 15:13 codeine Allergy Nausea Verified 11/04/19 15:13 metronidazole [From Flagyl] Allergy Anaphylaxis Verified 11/04/19 15:13 methotrexate AdvReac Unknown Verified 11/04/19 15:13 Physical Exam Vitals: Vital Signs Temp Pulse Resp BP Pulse Ox 11/04/19 17:22 98.6 F 81 18 115/46 95 11/04/19 16:14 78 18 144/61 97 11/04/19 15:05 98.4 F 68 16 131/61 99 11/04/19 13:51 98.2 F 11/04/19 11:22 100.2 F H 82 18 144/66 98 Intake and Output 11/04/19 11/04/19 11/04/19 06:59 14:59 22:59 Other: Weight 76.657 kg Physical examination: HEENT: head is atraumatic normocephalic pupils were equal round reactive to light and accomodations, extra ocular muscle movement were intact, mucous membranes of the mouth are somewhat dry. Neck: supple no JVP. Chest: decrease breath sounds at the bases with few ronchi no expiratory wheezes, no chest wall tenderness or intercostal retraction. Heart: firs heart sound is depressed, second heart sound is normal, there is no gallop or murmur. Abdomen: distended, kilo in mid line with no drainage, there is colostomy bag with stool in it, there is moderate tenderness in the left lower quadrant and depressed bowel sounds. Extremities: there is no edema or calf tenderness, DP +2 bilaterally. Neurologic examination: patient is awake , alert and oriented X 3 CN II-XII are grossly intact, muscle power 5/5 in bilateral upper and lower extremities, Deep tendon reflexes are normal. Results CBC & Chem 7: 11/04/19 12:41 11/04/19 12:41 Labs: Abnormal Lab Results - Last 24 Hours (Table) 11/04/19 11/04/19 11/04/19 Range/Units 12:41 12:41 13:42 RBC 3.42 L (3.80-5.40) m/uL Hgb 9.6 L (11.4-16.0) gm/dL Hct 31.1 L (34.0-46.0) % Plt Count 692 H (150-450) k/uL Sodium 135 L (137-145) mmol/L Glucose 113 H (74-99) mg/dL Total Protein 5.5 L (6.3-8.2) g/dL Albumin 3.2 L (3.5-5.0) g/dL Amylase <30 L (30-110) U/L Stool Occult Blood Positive H (Negative) Microbiology - Last 24 Hours (Table) 11/04/19 13:42 Stool Culture - Preliminary Stool Assessment and Plan Assessment: Assessment and plan: 1. Possible phlegmon formation at the ostomy site with Peritonitis POD # 15 post Matos pouch due to perforated diverticulitis with peritonitis. patient will maintained on IV Zosyn 3.375 g IVPB Q 6 hours and she will be seen by general surgery for further recommendation, also consulted for antibiotic management. 2. POD# 15 post Matos procedure with colostomy placement. continue treatment as in paragraph # 1. 3. Mild hyponatremia due to hypovolemia. we will continue with IVF at 100 ml/h. 4. COPD without exacerbation. we will continue with Duoneb 3 ml nebulization 4 times daily along with Symbicort 160/4.5 mcg 2 puffs inhalation bid. 5. Adrenal insufficiency disorder. we will continue with Cortef 25 mg po in AM and 15 mg in PM. 6. History of [place] granulomatosis. we will continue to monitor and she cerrato been off Retuxan after surgery to avoid more complications. 7. GERD. we will continue with Omeprazole. 8. Hypertension and hypertensive cardiovascular disease. we will continue with Amlodipine 5 mg orally daily, Lisinopril 40 mg orally daily and Metoprolol 50 mg orally bid. 9. Acute blood loss anemia. expected outcome of surgery we will continue to monitor CBC and we will continue with iron supplement. 10. Hypokalemia. post replacement. 11. Recurrent depression. we will continue with Cymbalta 20 mg orally daily. 12. History of chronic tobacco use and dependence. patient quit in 2019. 13. DVT prophylaxis. we will start Heparin 5000 units SC Q 8 hours along with knee-high grant hose. 14. GI prophylaxis we will continue with Pantoprazole 40 mg orally daily. 15. Thank you for the consult we will follow up the patient with you.
[2019-11-05 07:20] LABS: Glucose,Whole Blood 119 mg/dL (75-99)
[2019-11-05] MEDS: HYDROCORTISONE 10 MG TAB PO SCH ×2 (08:01→17:54)
[2019-11-05] MEDS: CALCIUM CARB-VIT D 500MG-200UN 1 EACH TAB PO SCH ×2 (08:02→16:09)
[2019-11-05] MEDS: HEPARIN SODIUM,PORCINE 5,000 UNIT/ML 1 ML VIAL SQ SCH ×3 (08:02→23:51)
[2019-11-05] MEDS: lisinopriL 20 MG TAB PO SCH (08:02)
[2019-11-05] MEDS: amLODIPine 5 MG TAB PO SCH (08:02)
[2019-11-05] MEDS: METOPROLOL TARTRATE 50 MG TAB PO SCH ×2 (08:02→16:10)
[2019-11-05] MEDS: DULoxetine HCL 20 MG CAPSULE.DR PO SCH (08:02)
[2019-11-05] MEDS: cycloSPORINE 0.05% OPHTH 0.4 ML DROPERETTE BOTH EYES SCH ×2 (08:14→23:51)
[2019-11-05 09:45] LABS: Basophils # (A) 0.1 k/uL (0-0.2); Basophils % (A) 1 %; Eosinophils # (A) 0.2 k/uL (0-0.7); Eosinophils % (A) 3 %; HCT 29.9 % (34.0-46.0); HGB 9.2 gm/dL (11.4-16.0); Hypochromasia Slight; Lymphocytes # (A) 1.4 k/uL (1.0-4.8); Lymphocytes % (A) 16 %; MCV 90.4 fL (80.0-100.0); Mean Platelet Volume 6.9; Monocytes # (A) 0.7 k/uL (0-1.0); Monocytes % (A) 8 %; Neutrophils # (A) 6.3 k/uL (1.3-7.7); Neutrophils % (A) 71 %; Platelet Count 692 k/uL (150-450); RDW 13.8 % (11.5-15.5); WBC 8.8 k/uL (3.8-10.6)
[2019-11-05 10:00] LABS: ALT 22 U/L (4-34); AST 20 U/L (14-36); African American GFR (CKD) >90 (>60 ml/min/1.73 sqM); Albumin 3.1 g/dL (3.5-5.0); Alkaline Phosphatase 82 U/L (38-126); Anion Gap 8 mmol/L; Blood Urea Nitrogen 9 mg/dL (7-17); Calcium 8.4 mg/dL (8.4-10.2); Carbon Dioxide 26 mmol/L (22-30); Chloride 102 mmol/L (98-107); Glucose 119 mg/dL (74-99); Non-African American GFR(CKD) 82 (>60 ml/min/1.73 sqM); Sodium 136 mmol/L (137-145); Total Bilirubin 0.5 mg/dL (0.2-1.3); Total Protein 5.2 g/dL (6.3-8.2)
[2019-11-05 11:24] LABS: Glucose,Whole Blood 134 mg/dL (75-99)
--- NOTE | 2019-11-05 13:44 | P.GSHP ---
History of Present Illness H&P Date: 11/05/19 59-year-old female presents to the emergency department from [facility] after recent admission for perforated diverticulitis. On 10/21/2019, the patient did undergo Matos's procedure secondary to this issue. She did improve after surgery and was discharged to [facility] for further rehab care and requirement for IV antibiotics as an outpatient. She is known to have a past medical history of diabetes mellitus type 2, Curtis's granulomatosis, GERD, hypertension. She is noted to be immunocompromised and on chronic steroids and has had Rituxan infusions, her most recent in April of this year. She has been on IV Zosyn while at the [facility]. She states that over the weekend she noticed some bloody output in her ostomy bag. She denied any pain at that time. She states that prior to her arrival to the emergency department yesterday, she began having a significant amount of pain around her ostomy site. She states that the pain started after some ostomy care was given to her by nurses at the facility. In the emergency department, work- up revealed no significant leukocytosis. There were noted inflammatory changes at the stoma site concerning for a possible phlegmon and some increased thickening of the colon leading to the stoma site. She has been tolerating a diet and denies any nausea or vomiting. She denies any febrile episodes. - Review of Systems All systems: negative Past Medical History Past Medical History: Diabetes Mellitus, GERD/Reflux, Hypertension, Myocardial Infarction ([place]), Respiratory Disorder Additional Past Medical History / Comment(s): Hx. of Curtis's. Chemo for [place], endometriosis, ovarian cysts, STATES SILENT [place] 2016 AND BORDERLINE DM DUE TO CHRONIC PREDNISONE USE. Last Myocardial Infarction Date:: 2016 History of Any Multi-Drug Resistant Organisms: C-DIFF Date of last positivie culture/infection: 2014 MDRO Source:: Stool Past Surgical History: Section Additional Past Surgical History / Comment(s): Right lung resection 2016, L humerus double compound fx repair, colonoscopy, Hemorrhoidectomy. Past Anesthesia/Blood Transfusion Reactions: No Reported Reaction Past Psychological History: No Psychological Hx Reported Smoking Status: Former smoker Past Alcohol Use History: None Reported Past Drug Use History: None Reported - Past Family History Mother Family Medical History: Coronary Artery Disease (CAD) Additional Family Medical History / Comment(s): Mother at age 78 with history of coronary artery disease status post multiple stents. Father Family Medical History: Myocardial Infarction ([place]) Additional Family Medical History / Comment(s): Father at age 45 from myocardial infarction. Brother(s) Family Medical History: Hypertension Additional Family Medical History / Comment(s): Patient has 1 brother with hypertension and kidney stones. Sister(s) Family Medical History: No Reported History Additional Family Medical History / Comment(s): Patient has one sister with CHRONIC HYPERCOHDRIA AND GALLSTONES Daughter(s) Family Medical History: No Reported History Additional Family Medical History / Comment(s): Patient has 2 daughters with no major medical problems. Medications and Allergies Home Medications Medication Instructions Recorded Confirmed Type Pantoprazole Sodium [Protonix] 40 mg PO DAILY@0600 08/22/18 11/04/19 History Calcium Carbonate/Vitamin D3 1 tab PO BID@0800,1700 01/05/19 11/04/19 History [Calcium 600-Vit D3 200 Tablet] Hydrocortisone 25 mg PO DAILY@0800 06/06/19 11/04/19 History Hydrocortisone [Cortef] 15 mg PO DAILY@1500 06/06/19 11/04/19 History Budesonide-Formot 160-4.5 Mcg 2 puff INHALATION RT-BID 06/09/19 11/04/19 History [Symbicort 160-4.5 Mcg Inhaler] Albuterol Sulfate [Ventolin HFA] 2 puff INHALATION RT-Q4H PRN 10/16/19 11/04/19 History Cholecalciferol [Vitamin D3 (25 5,000 unit PO DAILY@1700 10/16/19 11/04/19 History Mcg = 1000 Iu)] DULoxetine HCL [Cymbalta] 20 mg PO DAILY@0800 10/16/19 11/04/19 History Ipratropium-Albuterol Nebulize 3 ml INHALATION RT-HS@209910/16/19 11/04/19 History [Duoneb 0.5 mg-3 mg/3 ml Soln] Piperacillin-Tazobactam [Zosyn] 3.375 gm IVPB Q6H #84 bag 10/27/19 11/04/19 Rx Latanoprost Ophth [Xalatan 0.005%] 1 drop BOTH EYES HS@2099 11/04/19 11/04/19 History Magnesium Hydroxide [Milk of 7,200 mg PO Q48H PRN 11/04/19 11/04/19 History Magnesia Concentrate] Metoprolol Tartrate [Lopressor] 50 mg PO BID@0800,1700 11/04/19 11/04/19 History Na Phos,M-B/Na Phos,Di-Ba [Fleet 133 ml RECTAL DAILY PRN 11/04/19 11/04/19 History Adult] Ondansetron [Zofran] 4 mg PO Q6H PRN 11/04/19 11/04/19 History Potassium Chloride ER [K-Dur 20] 20 meq PO DAILY@1700 11/04/19 11/04/19 History amLODIPine [Norvasc] 5 mg PO DAILY@0800 11/04/19 11/04/19 History bisacodyL [Bisacodyl] 10 mg RECTAL DAILY PRN 11/04/19 11/04/19 History cycloSPORINE 0.05% OPHTH SOLN 1 drop BOTH EYES Q12HR 11/04/19 11/04/19 History [Restasis] lisinopriL 40 mg PO DAILY@0800 11/04/19 11/04/19 History prednisoLONE ACETATE 1% OPHTH 1 drops BOTH EYES DAILY@0800 11/04/19 11/04/19 History [Pred Forte 1%] traMADol HCl [Ultram] 50 mg PO Q4H PRN 11/04/19 11/04/19 History Allergies Allergy/AdvReac Type Severity Reaction Status Date / Time azathioprine [From Imuran] Allergy Vomiting Verified 11/04/19 15:13 codeine Allergy Nausea Verified 11/04/19 15:13 metronidazole [From Flagyl] Allergy Anaphylaxis Verified 11/04/19 15:13 methotrexate AdvReac Unknown Verified 11/04/19 15:13 Surgical - Exam Osteopathic Statement: *. No significant issues noted on an osteopathic structural exam other than those noted in the History and Physical/Consult. Vital Signs Temp Pulse Resp BP Pulse Ox 100.2 F H 82 18 144/66 98 11/04/19 11:22 11/04/19 11:22 11/04/19 11:22 11/04/19 11:22 11/04/19 11:22 - General well developed, well nourished - Eyes PERRL, normal ocular movement - ENT normal mucosa, no hearing loss - Neck no bruits, trachea midline - Respiratory normal expansion, normal respiratory effort - Abdomen Soft, nontender, nondistended, no rebound, no guarding, midline incision healing well with kilo in place, ostomy is pink and patent and slightly retracted with stool output. There is some friability on the stoma with bleeding after exam. At the inferior portion of the stoma there is some mild skin excoriation. This is tender to touch. - Psychiatric oriented to time, oriented to person, oriented to place Results - Labs 11/05/19 09:00 11/05/19 09:00 Abnormal Lab Results - Last 24 Hours (Table) 11/04/19 11/04/19 11/05/19 Range/Units 13:42 13:42 07:19 RBC (3.80-5.40) m/uL Hgb (11.4-16.0) gm/dL Hct (34.0-46.0) % Plt Count (150-450) k/uL Sodium (137-145) mmol/L Glucose (74-99) mg/dL POC Glucose (mg/dL) 119 H (75-99) mg/dL Total Protein (6.3-8.2) g/dL Albumin (3.5-5.0) g/dL Stool Occult Blood Positive H (Negative) Stool Lactoferrin POSITIVE H (NEGATIVE) 11/05/19 11/05/19 11/05/19 Range/Units 09:00 09:00 11:22 RBC 3.30 L (3.80-5.40) m/uL Hgb 9.2 L (11.4-16.0) gm/dL Hct 29.9 L (34.0-46.0) % Plt Count 692 H (150-450) k/uL Sodium 136 L (137-145) mmol/L Glucose 119 H (74-99) mg/dL POC Glucose (mg/dL) 134 H (75-99) mg/dL Total Protein 5.2 L (6.3-8.2) g/dL Albumin 3.1 L (3.5-5.0) g/dL Stool Occult Blood (Negative) Stool Lactoferrin (NEGATIVE) Microbiology - Last 24 Hours (Table) 11/04/19 13:42 Stool Culture - Preliminary Stool Diabetes panel 11/05/19 Range/Units 09:00 Sodium 136 L (137-145) mmol/L Potassium 4.0 (3.5-5.1) mmol/L Chloride 102 (98-107) mmol/L Carbon Dioxide 26 (22-30) mmol/L BUN 9 (7-17) mg/dL Creatinine 0.79 (0.52-1.04) mg/dL Glucose 119 H (74-99) mg/dL Calcium 8.4 (8.4-10.2) mg/dL AST 20 (14-36) U/L ALT 22 (4-34) U/L Alkaline Phosphatase 82 (38-126) U/L Total Protein 5.2 L (6.3-8.2) g/dL Albumin 3.1 L (3.5-5.0) g/dL Calcium panel 11/05/19 Range/Units 09:00 Calcium 8.4 (8.4-10.2) mg/dL Albumin 3.1 L (3.5-5.0) g/dL Pituitary panel 11/05/19 Range/Units 09:00 Sodium 136 L (137-145) mmol/L Potassium 4.0 (3.5-5.1) mmol/L Chloride 102 (98-107) mmol/L Carbon Dioxide 26 (22-30) mmol/L BUN 9 (7-17) mg/dL Creatinine 0.79 (0.52-1.04) mg/dL Glucose 119 H (74-99) mg/dL Calcium 8.4 (8.4-10.2) mg/dL Adrenal panel 11/05/19 Range/Units 09:00 Sodium 136 L (137-145) mmol/L Potassium 4.0 (3.5-5.1) mmol/L Chloride 102 (98-107) mmol/L Carbon Dioxide 26 (22-30) mmol/L BUN 9 (7-17) mg/dL Creatinine 0.79 (0.52-1.04) mg/dL Glucose 119 H (74-99) mg/dL Calcium 8.4 (8.4-10.2) mg/dL Total Bilirubin 0.5 (0.2-1.3) mg/dL AST 20 (14-36) U/L ALT 22 (4-34) U/L Alkaline Phosphatase 82 (38-126) U/L Total Protein 5.2 L (6.3-8.2) g/dL Albumin 3.1 L (3.5-5.0) g/dL Assessment and Plan Plan: 59-year-old female status post Matos's procedure approximately 2 weeks ago - Ostomy was thoroughly interrogated. The previous loss noted last week has been removed and ostomy is noted to be pink and widely patent. During exam, there was notable bleeding at the stoma after brushing with gauze. This does show that there is blood flow to the stoma and no current evidence of ischemia. The ostomy is also mildly retracted. There is mild excoriation at the inferior portion of the stoma of the skin. - Thickening of the colon noted on CT scan, concerning for colitis. Patient is on IV antibiotics with Zosyn. ID consultation has been placed for further recommendations on IV antibiotics. - Also, possible finding of phlegmon of the stoma site is noted on the CT read. No obvious abscess is noted. Will continue antibiotics. - Patient's abdominal pain is greatly improved over the past 24 hours. She is tolerating diet. No plan for any acute surgical intervention. She will need further guidance with her ostomy care. We will await infectious disease recommendations.
[2019-11-05] MEDS ORDERED: MEROPENEM 1 GM in SODIUM CHLORIDE 0.9% 100 ML IVPB ONE (14:30)
--- NOTE | 2019-11-05 15:33 | P.PN ---
Subjective Progress Note Date: 11/05/19 This is a 59-year-old female patient of mine with past medical history of diabetes mellitus type 2, Curtis granulomatosis, gastroesophageal reflux disease, hypertension, patient was recently discharged from [facility] after she was admitted for increased abdominal pain, and diarrhea for 3 weeks prior to her presentation and she initially was found to have sigmoid diverticulitis that was treated with bowel rest and IV antibioics, unfortunately her hospital course was complicated with perforated diverticulitis and peritonitis for which she underwent Matos procedure with colostomy placement, and she was treated with Zosyn and had a midline so she was sent to [facility] last and for the past 3 days she has been complaining of bloody stool and increased abdominal pain and I received a call from my patient stating that she is in pain , so she was sent to the ER at [facility] and had a ct scan of the abdomen and pelvis with contrast that showed possible phlegmon and inflammatory changes at the stoma ite with fluid collection to left and mildy to the right, with increased thickening of the colon, she was maintained on IV Zosyn and she was admitted under General surgery and I was consulted for medical management. 11/04: Patient is seen in follow-up today. She is in her room on the MedSur floor. She states she is feeling much better today that she had a rough night. She has an area of point tenderness in the lower left quadrant but otherwise no significant abdominal pain. Stool for occult blood is positive and lactoferrin positive. Patient has been afebrile, heart rate 110, blood pressure 130/60, pulse ox 92% on room air. Blood sugars running between 119 and 134. WBC 8.8, hemoglobin 9.2, platelet count 692. BUN 9 and creatinine 0.79. Sodium 136. IV iron infusion will be ordered for today. Anticipate she'll be ready for discharge back to [facility] tomorrow. COVID-19 testing will be ordered. Objective - Vital Signs Vital signs: Vital Signs Temp 98.7 F 11/05/19 07:00 Pulse 110 H 11/05/19 08:00 Resp 18 11/05/19 08:00 BP 130/60 11/05/19 07:00 Pulse Ox 92 L 11/05/19 07:00 Intake & Output 11/04/19 11/05/19 11/05/19 18:59 06:59 18:59 Weight 76.657 kg 76.657 kg Other: Voiding Method Toilet Toilet # Voids 2 # Bowel Movements 1 - Exam Review of Systems Constitutional: Reports chronic pain, Reports fatigue, Reports malaise, Reports weakness, Denies anorexia Eyes: denies blurred vision, denies bulging eye, denies decreased vision Ears, nose, mouth and throat: Denies dysphagia, Denies sore throat Cardiovascular: Denies chest pain, Denies decreased exercise tolerance, Denies lightheadedness, Denies rapid heart beat, Denies shortness of breath, Denies syncope Respiratory: Denies congestion, Denies cough with sputum, Denies home oxygen, Denies sleep apnea, Denies snoring, Denies wheezing Gastrointestinal: Reports abdominal pain, Reports bloating, Reports change in bowel habits, Reports hematochezia, denies loss of appetite, denies nausea, Denies excessive gas, Denies heartburn, Denies hematemesis, Denies melena, Denies vomiting Genitourinary: Reports nocturia, Denies dysuria Musculoskeletal: Denies myalgias Musculoskeletal: absent: ankle pain, ankle stiffness, ankle swelling, elbow pain, elbow stiffness, elbow swelling, foot pain, foot stiffness, foot swelling, hand pain, hand stiffness, hand swelling, hip pain, hip stiffness, hip swelling, knee pain, knee stiffness, knee swelling, shoulder pain, shoulder stiffness, shoulder swelling, wrist pain, wrist stiffness, wrist swelling Integumentary: Denies pruritus, Denies rash Neurological: Denies numbness, Denies weakness Psychiatric: Reports anxiety, Reports sadness/tearfulness Endocrine: Denies fatigue, Denies weight change Physical examination: HEENT: head is atraumatic normocephalic pupils were equal round reactive to light and accomodations, extra ocular muscle movement were intact, mucous membranes of the mouth are somewhat dry. Neck: supple no JVP. Chest: decrease breath sounds at the bases with few ronchi no expiratory whe ezes, no chest wall tenderness or intercostal retraction. Heart: firs heart sound is depressed, second heart sound is normal, there is no gallop or murmur. Abdomen: distended, kilo in mid line with no drainage, there is colostomy bag with stool in it, there is moderate tenderness in the left lower quadrant and bowel sounds. No blood in ostomy bag. Extremities: there is no edema or calf tenderness, DP +2 bilaterally. Neurologic examination: patient is awake , alert and oriented X 3 CN II-XII are grossly intact, muscle power 5/5 in bilateral upper and lower extremities, Deep tendon reflexes are normal. - Labs CBC & Chem 7: 11/05/19 09:00 11/05/19 09:00 Labs: Abnormal Lab Results - Last 24 Hours (Table) 11/04/19 11/04/19 11/04/19 Range/Units 12:41 13:42 13:42 RBC (3.80-5.40) m/uL Hgb (11.4-16.0) gm/dL Hct (34.0-46.0) % Plt Count (150-450) k/uL Sodium 135 L (137-145) mmol/L Glucose 113 H (74-99) mg/dL POC Glucose (mg/dL) (75-99) mg/dL Total Protein 5.5 L (6.3-8.2) g/dL Albumin 3.2 L (3.5-5.0) g/dL Amylase <30 L (30-110) U/L Stool Occult Blood Positive H (Negative) Stool Lactoferrin POSITIVE H (NEGATIVE) 11/05/19 11/05/19 11/05/19 Range/Units 07:19 09:00 09:00 RBC 3.30 L (3.80-5.40) m/uL Hgb 9.2 L (11.4-16.0) gm/dL Hct 29.9 L (34.0-46.0) % Plt Count 692 H (150-450) k/uL Sodium 136 L (137-145) mmol/L Glucose 119 H (74-99) mg/dL POC Glucose (mg/dL) 119 H (75-99) mg/dL Total Protein 5.2 L (6.3-8.2) g/dL Albumin 3.1 L (3.5-5.0) g/dL Amylase (30-110) U/L Stool Occult Blood (Negative) Stool Lactoferrin (NEGATIVE) 11/05/19 Range/Units 11:22 RBC (3.80-5.40) m/uL Hgb (11.4-16.0) gm/dL Hct (34.0-46.0) % Plt Count (150-450) k/uL Sodium (137-145) mmol/L Glucose (74-99) mg/dL POC Glucose (mg/dL) 134 H (75-99) mg/dL Total Protein (6.3-8.2) g/dL Albumin (3.5-5.0) g/dL Amylase (30-110) U/L Stool Occult Blood (Negative) Stool Lactoferrin (NEGATIVE) Microbiology - Last 24 Hours (Table) 11/04/19 13:42 Stool Culture - Preliminary Stool Assessment and Plan Plan: 1. Possible phlegmon formation at the ostomy site with Peritonitis status post Matos pouch due to perforated diverticulitis with peritonitis. Patient is currently on meropenem per infectious disease. 2. POD# 16 post Matos procedure with colostomy placement. continue treatment as in paragraph # 1. 3. Mild hyponatremia due to hypovolemia. we will continue with IVF at 100 ml/h. 4. COPD without exacerbation. we will continue with Duoneb 3 ml nebulization 4 times daily along with Symbicort 160/4.5 mcg 2 puffs inhalation bid. 5. Adrenal insufficiency disorder. we will continue with Cortef 25 mg po in AM and 15 mg in PM. 6. History of [place] granulomatosis. we will continue to monitor and she cerrato been off Retuxan after surgery to avoid more complications. 7. GERD. we will continue with Omeprazole. 8. Hypertension and hypertensive cardiovascular disease. we will continue with Amlodipine 5 mg orally daily, Lisinopril 40 mg orally daily and Metoprolol 50 mg orally bid. 9. Acute blood loss anemia. expected outcome of surgery we will continue to monitor CBC and we will continue with iron supplement. 10. Hypokalemia. post replacement. 11. Recurrent depression. we will continue with Cymbalta 20 mg orally daily. 12. History of chronic tobacco use and dependence. patient quit in 2019. 13. DVT prophylaxis. we will start Heparin 5000 units SC Q 8 hours along with knee-high grant hose. 14. GI prophylaxis we will continue with Pantoprazole 40 mg orally daily. 15. Thank you for the consult we will follow up the patient with you. Discharge plan: Return to [facility] tomorrow Impression and plan of care have been directed as dictated by the signing physician. Lanette Mccarthy nurse practitioner acting as scribe for signing physician.
[2019-11-05] MEDS: CHOLECALCIFEROL 1,000 UNIT TAB PO SCH (16:10)
[2019-11-05] MEDS: prednisoLONE ACETATE 1% OPHTH DROPS 5 ML BTL BOTH EYES SCH (16:15)
[2019-11-05 16:51] LABS: Glucose,Whole Blood 161 mg/dL (75-99)
[2019-11-05] MEDS: SODIUM CHLORIDE 0.9% 1,000 ML IV SCH (17:54)
[2019-11-05] MEDS: SODIUM FERRIC GLUCONAT-SUCROSE 125 MG in SODIUM CHLORIDE 0.9% 100 ML IVPB SCH (17:54)
[2019-11-05] MEDS: POTASSIUM CHLORIDE ER 20 MEQ TAB.ER PO SCH (17:54)
[2019-11-05] MEDS: MEROPENEM 1 GM in SODIUM CHLORIDE 0.9% 100 ML IVPB SCH (21:21)
[2019-11-05] MEDS: LATANOPROST 0.005% OPHTH DROPS 2.5 ML BTL BOTH EYES SCH (21:22)
--- NOTE | 2019-11-05 22:59 | P.CONS ---
History of Present Illness - Reason for Consult Consult date: 11/05/19 Abdominal abscess Requesting physician: Michelle Ontiveros - Chief Complaint Abdominal pain x 2 days - History of Present Illness Patient is 59-year-old female who was recently admitted at [facility] patient did have perforated sigmoid diverticulitis and abdominal abscess status post diverting colostomy and drainage of the abscess ulcer positive for Citrobacter and Klebsiella along with anaerobes in view of her underlying immunosuppressed state from medication the patient is on her she did get up PICC line and was advised Zosyn for 2 weeks with the patient is currently receiving at the snf patient has not been brought back to [facility] ER with concern for pain around the ostomy site. Has been going on for about 2 days before the patient was brought to the hospital patient describing the pain to be more sharp in nature 5-6 out of 10 and no radiation patient be complaining of sweats but denies high-grade fever on the the patient noticed to have a temperature 100.2F patient did have a normal white count she did have CT of abdominal pelvis which has been read by radiologist as correlated for peritonitis probable phelgmon formation at the patient ostomy site underlying colitis possible seroma patient was continued on Zosyn infection he was consulted for further management of antibiotic therapy Review of Systems Positive point has been mentioned in the HPI rest of the systems are negative Past Medical History Past Medical History: Diabetes Mellitus, GERD/Reflux, Hypertension, [place]ocardial Infarction ([place]), Respiratory Disorder Additional Past Medical History / Comment(s): Hx. of Curtis's. Chemo for [place], endometriosis, ovarian cysts, STATES SILENT [place] 2016 AND BORDERLINE DM DUE TO CHRONIC PREDNISONE USE. Last Myocardial Infarction Date:: 2016 History of Any Multi-Drug Resistant Organisms: C-DIFF Year Discovered:: 2014 MDRO Source:: Stool Past Surgical History: Section Additional Past Surgical History / Comment(s): Right lung resection 2016, L humerus double compound fx repair, colonoscopy, Hemorrhoidectomy. Past Anesthesia/Blood Transfusion Reactions: No Reported Reaction Past Psychological History: No Psychological Hx Reported Smoking Status: Former smoker Past Alcohol Use History: None Reported Past Drug Use History: None Reported - Past Family History Mother Family Medical History: Coronary Artery Disease (CAD) Additional Family Medical History / Comment(s): Mother at age 78 with history of coronary artery disease status post multiple stents. Father Family Medical History: Myocardial Infarction ([place]) Additional Family Medical History / Comment(s): Father at age 45 from myocardial infarction. Brother(s) Family Medical History: Hypertension Additional Family Medical History / Comment(s): Patient has 1 brother with hypertension and kidney stones. Sister(s) Family Medical History: No Reported History Additional Family Medical History / Comment(s): Patient has one sister with CHRONIC HYPERCOHDRIA AND GALLSTONES Daughter(s) Family Medical History: No Reported History Additional Family Medical History / Comment(s): Patient has 2 daughters with no major medical problems. Medications and Allergies Home Medications Medication Instructions Recorded Confirmed Type Pantoprazole Sodium [Protonix] 40 mg PO DAILY@0600 08/22/18 11/04/19 History Calcium Carbonate/Vitamin D3 1 tab PO BID@0800,1700 01/05/19 11/04/19 History [Calcium 600-Vit D3 200 Tablet] Hydrocortisone 25 mg PO DAILY@0800 06/06/19 11/04/19 History Hydrocortisone [Cortef] 15 mg PO DAILY@1500 06/06/19 11/04/19 History Budesonide-Formot 160-4.5 Mcg 2 puff INHALATION RT-BID 06/09/19 11/04/19 History [Symbicort 160-4.5 Mcg Inhaler] Albuterol Sulfate [Ventolin HFA] 2 puff INHALATION RT-Q4H PRN 10/16/19 11/04/19 History Cholecalciferol [Vitamin D3 (25 5,000 unit PO DAILY@1700 10/16/19 11/04/19 History Mcg = 1000 Iu)] DULoxetine HCL [Cymbalta] 20 mg PO DAILY@0810/16/19 11/04/19 History Ipratropium-Albuterol Nebulize 3 ml INHALATION RT-HS@209910/16/19 11/04/19 History [Duoneb 0.5 mg-3 mg/3 ml Soln] Piperacillin-Tazobactam [Zosyn] 3.375 gm IVPB Q6H #84 bag 10/27/19 11/04/19 Rx Latanoprost Ophth [Xalatan 0.005%] 1 drop BOTH EYES HS@209911/04/19 11/04/19 History Magnesium Hydroxide [Milk of 7,200 mg PO Q48H PRN 11/04/19 11/04/19 History Magnesia Concentrate] Metoprolol Tartrate [Lopressor] 50 mg PO BID@0800,1700 11/04/19 11/04/19 History Na Phos,M-B/Na Phos,Di-Ba [Fleet 133 ml RECTAL DAILY PRN 11/04/19 11/04/19 History Adult] Ondansetron [Zofran] 4 mg PO Q6H PRN 11/04/19 11/04/19 History Potassium Chloride ER [K-Dur 20] 20 meq PO DAILY@1700 11/04/19 11/04/19 History amLODIPine [Norvasc] 5 mg PO DAILY@0800 11/04/19 11/04/19 History bisacodyL [Bisacodyl] 10 mg RECTAL DAILY PRN 11/04/19 11/04/19 History cycloSPORINE 0.05% OPHTH SOLN 1 drop BOTH EYES Q12HR 11/04/19 11/04/19 History [Restasis] lisinopriL 40 mg PO DAILY@0800 11/04/19 11/04/19 History prednisoLONE ACETATE 1% OPHTH 1 drops BOTH EYES DAILY@0800 11/04/19 11/04/19 History [Pred Forte 1%] traMADol HCl [Ultram] 50 mg PO Q4H PRN 11/04/19 11/04/19 History Allergies Allergy/AdvReac Type Severity Reaction Status Date / Time azathioprine [From Imuran] Allergy Vomiting Verified 11/04/19 15:13 codeine Allergy Nausea Verified 11/04/19 15:13 metronidazole [From Flagyl] Allergy Anaphylaxis Verified 11/04/19 15:13 methotrexate AdvReac Unknown Verified 11/04/19 15:13 Physical Exam Vitals: Vital Signs Temp Pulse Pulse Resp BP BP Pulse Ox 11/05/19 08:00 110 H 18 11/05/19 07:00 98.7 F 110 H 18 130/60 92 L 11/05/19 03:51 18 11/05/19 00:45 18 11/05/19 00:40 99.3 F 103 H 18 149/77 95 11/04/19 22:00 18 11/04/19 20:40 98.7 F 80 18 158/77 94 L 11/04/19 20:05 73 18 120/58 11/04/19 17:22 98.6 F 81 18 115/46 95 11/04/19 16:14 78 18 144/61 97 11/04/19 15:05 98.4 F 68 16 131/61 99 Intake and Output 11/04/19 11/05/19 11/05/19 22:59 06:59 14:59 Other: Voiding Method Toilet Toilet Toilet # Voids 1 2 # Bowel Movements 1 Weight 76.657 kg GENERAL DESCRIPTION: Middle-aged female lying in bed, no distress. No tachypnea or accessory muscle of respiration use. HEENT: Shows Pallor , no scleral icterus. Oral mucous membrane is dry. No pharyngeal erythema or thrush NECK: Trachea central, no thyromegaly. LUNGS: Unlabored breathing. Clear to auscultation anteriorly. No wheeze or crackle. HEART: S1, S2, regular rate and rhythm. No loud murmur ABDOMEN: Soft, midline abdominal incision is currently taking , patient did have mild distention but no tenderness ,no guarding or rigidity, no organomegaly EXTREMITIES: No edema of feet. SKIN: No rash, no masses palpable. NEUROLOGICAL: The patient is awake, alert, oriented x3, mood and affect normal. Results CBC & Chem 7: 11/05/19 09:00 11/05/19 09:00 Labs: Abnormal Lab Results - Last 24 Hours (Table) 11/04/19 11/04/19 11/05/19 Range/Units 13:42 13:42 07:19 RBC (3.80-5.40) m/uL Hgb (11.4-16.0) gm/dL Hct (34.0-46.0) % Plt Count (150-450) k/uL Sodium (137-145) mmol/L Glucose (74-99) mg/dL POC Glucose (mg/dL) 119 H (75-99) mg/dL Total Protein (6.3-8.2) g/dL Albumin (3.5-5.0) g/dL Stool Occult Blood Positive H (Negative) Stool Lactoferrin POSITIVE H (NEGATIVE) 11/05/19 11/05/19 11/05/19 Range/Units 09:00 09:00 11:22 RBC 3.30 L (3.80-5.40) m/uL Hgb 9.2 L (11.4-16.0) gm/dL Hct 29.9 L (34.0-46.0) % Plt Count 692 H (150-450) k/uL Sodium 136 L (137-145) mmol/L Glucose 119 H (74-99) mg/dL POC Glucose (mg/dL) 134 H (75-99) mg/dL Total Protein 5.2 L (6.3-8.2) g/dL Albumin 3.1 L (3.5-5.0) g/dL Stool Occult Blood (Negative) Stool Lactoferrin (NEGATIVE) Microbiology - Last 24 Hours (Table) 11/04/19 13:42 Stool Culture - Preliminary Stool Assessment and Plan Assessment: 1-patient with a recent history of perforated sigmoid diverticulitis and abdominal abscess status post diverting colostomy and drainage of the abscess culture were positive for Citrobacter and Klebsiella along with anaerobes and the patient was on Zosyn as the patient did have ALLERGY to Flagyl now presented to the hospital with abdominal pain and low-grade fever the white count is normal CT of abdominal pelvis has been described abnormal by the radiologist however the patient clinically have significant signs of inflammation on abdominal examination (1) Intra-abdominal abscess Current Visit: Yes Status: Acute Code(s): K65.1 - PERITONEAL ABSCESS SNOMED Code(s): 53733122 Plan: 1-discontinue Zosyn 2- start the patient on meropenem 1 g every 8 hours 3-CT will be reviewed with radiologist to see any of the fluid collection could be drained CT-guided and sent for culture We will follow on clinical condition and cultures to further adjust medication if needed Thank you for this consultation will follow this patient with you Time with Patient: Greater than 30
[2019-11-06] MEDS: traMADol 50 MG TAB PO PRN ×4 (03:02→17:28)
[2019-11-06] MEDS: SODIUM CHLORIDE 0.9% 1,000 ML IV SCH ×4 (05:21→23:47)
[2019-11-06] MEDS: MORPHINE SULFATE 4 MG/ML SYRINGE IV PRN ×2 (05:35→21:38)
[2019-11-06] MEDS: MEROPENEM 1 GM in SODIUM CHLORIDE 0.9% 100 ML IVPB SCH ×3 (05:36→21:37)
[2019-11-06 06:41] LABS: Glucose,Whole Blood 101 mg/dL (75-99)
[2019-11-06] MEDS: METOPROLOL TARTRATE 50 MG TAB PO SCH ×2 (08:05→17:30)
[2019-11-06] MEDS: lisinopriL 20 MG TAB PO SCH (08:05)
[2019-11-06] MEDS: amLODIPine 5 MG TAB PO SCH (08:05)
[2019-11-06] MEDS: HEPARIN SODIUM,PORCINE 5,000 UNIT/ML 1 ML VIAL SQ SCH ×3 (08:07→23:45)
[2019-11-06] MEDS: HYDROCORTISONE 10 MG TAB PO SCH ×2 (08:07→15:52)
[2019-11-06] MEDS: CALCIUM CARB-VIT D 500MG-200UN 1 EACH TAB PO SCH ×2 (08:07→17:30)
[2019-11-06] MEDS: prednisoLONE ACETATE 1% OPHTH DROPS 5 ML BTL BOTH EYES SCH (08:08)
[2019-11-06] MEDS: DULoxetine HCL 20 MG CAPSULE.DR PO SCH (08:08)
[2019-11-06] MEDS: cycloSPORINE 0.05% OPHTH 0.4 ML DROPERETTE BOTH EYES SCH ×2 (08:10→21:37)
[2019-11-06] MEDS: SYMBICORT 160-4.5 MCG INHALER INHALATION SCH ×2 (08:36→20:27)
[2019-11-06 08:56] LABS: Basophils % (A) 1 %; Eosinophils # (A) 0.3 k/uL (0-0.7); Eosinophils % (A) 3 %; HCT 31.1 % (34.0-46.0); HGB 9.5 gm/dL (11.4-16.0); Hypochromasia Slight; Lymphocytes # (A) 2.1 k/uL (1.0-4.8); Lymphocytes % (A) 27 %; MCH 27.5 pg (25.0-35.0); MCHC 30.3 g/dL (31.0-37.0); MCV 90.6 fL (80.0-100.0); Mean Platelet Volume 6.6; Monocytes # (A) 0.5 k/uL (0-1.0); Monocytes % (A) 7 %; Neutrophils # (A) 4.7 k/uL (1.3-7.7); Neutrophils % (A) 61 %; Platelet Count 720 k/uL (150-450); RBC 3.44 m/uL (3.80-5.40); WBC 7.7 k/uL (3.8-10.6)
[2019-11-06 09:07] LABS: ALT 21 U/L (4-34); AST 17 U/L (14-36); African American GFR (CKD) >90 (>60 ml/min/1.73 sqM); Albumin 3.2 g/dL (3.5-5.0); Alkaline Phosphatase 88 U/L (38-126); Anion Gap 6 mmol/L; Blood Urea Nitrogen 7 mg/dL (7-17); Calcium 8.9 mg/dL (8.4-10.2); Carbon Dioxide 29 mmol/L (22-30); Chloride 103 mmol/L (98-107); Glucose 98 mg/dL (74-99); Non-African American GFR(CKD) >90 (>60 ml/min/1.73 sqM); Potassium 3.8 mmol/L (3.5-5.1); Sodium 138 mmol/L (137-145); Total Bilirubin 0.4 mg/dL (0.2-1.3); Total Protein 5.5 g/dL (6.3-8.2)
--- NOTE | 2019-11-06 10:57 | P.PN ---
Subjective Progress Note Date: 11/06/19 This is a 59-year-old female patient of [facility] with past medical history of diabetes mellitus type 2, [place] granulomatosis, gastroesophageal reflux disease, hypertension, patient was recently discharged from [facility] after she was admitted for increased abdominal pain, and diarrhea for 3 weeks prior to her presentation and she initially was found to have sigmoid diverticulitis that was treated with bowel rest and IV antibioics, unfortunately her hospital course was complicated with perforated diverticulitis and peritonitis for which she underwent Matos procedure with colostomy placement, and she was treated with Zosyn and had a midline so she was sent to [facility] last and for the past 3 days she has been complaining of bloody stool and increased abdominal pain and I received a call from my patient stating that she is in pain , so she was sent to the ER at [facility] and had a ct scan of the abdomen and pelvis with contrast that showed possible phlegmon and inflammatory changes at the stoma ite with fluid collection to left and mildy to the right, with increased thickening of the colon, she was maintained on IV Zosyn and she was admitted under General surgery and I was consulted for medical management. 11/04: Patient is seen in follow-up today. She is in her room on the MedSur floor. She states she is feeling much better today that she had a rough night. She has an area of point tenderness in the lower left quadrant but otherwise no significant abdominal pain. Stool for occult blood is positive and lactoferrin positive. Patient has been afebrile, heart rate 110, blood pressure 130/60, pulse ox 92% on room air. Blood sugars running between 119 and 134. WBC 8.8, hemoglobin 9.2, platelet count 692. BUN 9 and creatinine 0.79. Sodium 136. IV iron infusion will be ordered for today. Anticipate she'll be ready for discharge back to [facility] tomorrow. COVID-19 testing will be ordered. 11/05: Patient has been seen by Dr. Stone and antibiotics changed to meropenem. Abdominal pain is also improved. She is tolerating diet. Dr. Lujan does not have any intention of surgical intervention. She has been afebrile, heart rate 74, blood pressure 151/72, pulse ox 95% on room air. Repeat blood work reveals WBC 7.7, hemoglobin 9.5, platelet count 720. Electrolytes and renal function, liver function tests all normal. Discharge plan is to return to [facility]. Objective - Vital Signs Vital signs: Vital Signs Temp 98.1 F 11/06/19 07:00 Pulse 74 11/06/19 07:00 Resp 16 11/06/19 07:00 BP 151/72 11/06/19 07:00 Pulse Ox 95 11/06/19 07:00 Intake & Output 11/05/19 11/06/19 11/06/19 18:59 06:59 18:59 Output Total 0 Balance 0 Output: Stool 0 Other: Voiding Method Toilet Toilet Toilet # Voids 1 4 1 # Bowel Movements 2 - Exam Review of Systems Constitutional: Reports chronic pain, Reports fatigue, Reports weakness, Denies anorexia Eyes: denies blurred vision, denies bulging eye, denies decreased vision Ears, nose, mouth and throat: Denies dysphagia, Denies sore throat Cardiovascular: Denies chest pain, Denies decreased exercise tolerance, Denies lightheadedness, Denies rapid heart beat, Denies shortness of breath, Denies syncope Respiratory: Denies congestion, Denies cough with sputum, Denies home oxygen, Denies sleep apnea, Denies snoring, Denies wheezing Gastrointestinal: Reports abdominal pain, Reports bloating, Reports change in bowel habits, Reports hematochezia, denies loss of appetite, denies nausea, Denies excessive gas, Denies heartburn, Denies hematemesis, Denies melena, Denies vomiting Genitourinary: Reports nocturia, Denies dysuria Musculoskeletal: Denies myalgias Musculoskeletal: absent: ankle pain, ankle stiffness, ankle swelling, elbow pain, elbow stiffness, elbow swelling, foot pain, foot stiffness, foot swelling, hand pain, hand stiffness, hand swelling, hip pain, hip stiffness, hip swelling, knee pain, knee stiffness, knee swelling, shoulder pain, shoulder stiffness, shoulder swelling, wrist pain, wrist stiffness, wrist swelling Integumentary: Denies pruritus, Denies rash Neurological: Denies numbness, Denies weakness Psychiatric: Reports anxiety, denies tearfulness Endocrine: Denies fatigue, Denies weight change Physical examination: GEN: This is a 59-year-old obese female. She is resting in bed and appears to be comfortable. No acute distress noted. HEENT: head is atraumatic normocephalic pupils were equal round reactive to lig ht and accomodations, extra ocular muscle movement were intact, mucous membranes of the mouth are somewhat dry. Neck: supple no JVP. Chest: decrease breath sounds at the bases with few ronchi no expiratory wheezes, no chest wall tenderness or intercostal retraction. Heart: firs heart sound is depressed, second heart sound is normal, there is no gallop or murmur. Abdomen: distended, kilo in mid line with no drainage, there is colostomy bag with stool in it, there is moderate tenderness in the left lower quadrant and bowel sounds. No blood in ostomy bag. Extremities: there is no edema or calf tenderness, DP +2 bilaterally. Neurologic examination: patient is awake , alert and oriented X 3 CN II-XII are grossly intact, muscle power 5/5 in bilateral upper and lower extremities, Deep tendon reflexes are normal. - Labs CBC & Chem 7: 11/06/19 08:18 11/06/19 08:18 Labs: Abnormal Lab Results - Last 24 Hours (Table) 11/05/19 11/05/19 11/06/19 Range/Units 11:22 16:50 06:39 RBC (3.80-5.40) m/uL Hgb (11.4-16.0) gm/dL Hct (34.0-46.0) % MCHC (31.0-37.0) g/dL Plt Count (150-450) k/uL POC Glucose (mg/dL) 134 H 161 H 101 H (75-99) mg/dL Total Protein (6.3-8.2) g/dL Albumin (3.5-5.0) g/dL 11/06/19 11/06/19 Range/Units 08:18 08:18 RBC 3.44 L (3.80-5.40) m/uL Hgb 9.5 L (11.4-16.0) gm/dL Hct 31.1 L (34.0-46.0) % MCHC 30.3 L (31.0-37.0) g/dL Plt Count 720 H (150-450) k/uL POC Glucose (mg/dL) (75-99) mg/dL Total Protein 5.5 L (6.3-8.2) g/dL Albumin 3.2 L (3.5-5.0) g/dL Microbiology - Last 24 Hours (Table) 11/04/19 12:41 Blood Culture - Preliminary Blood No Growth after 24 hours Assessment and Plan Plan: 1. Possible phlegmon formation at the ostomy site with Peritonitis status post Matos pouch due to perforated diverticulitis with peritonitis. Patient is currently on meropenem per infectious disease. 2. POD# 16 post Matos procedure with colostomy placement. continue treatment as in paragraph # 1. 3. Mild hyponatremia due to hypovolemia. we will continue with IVF at 100 ml/h. 4. COPD without exacerbation. we will continue with Duoneb 3 ml nebulization 4 times daily along with Symbicort 160/4.5 mcg 2 puffs inhalation bid. 5. Adrenal insufficiency disorder. we will continue with Cortef 25 mg po in AM and 15 mg in PM. 6. History of [place] granulomatosis. we will continue to monitor and she cerrato been off Retuxan after surgery to avoid more complications. 7. GERD. we will continue with Omeprazole. 8. Hypertension and hypertensive cardiovascular disease. we will continue with Amlodipine 5 mg orally daily, Lisinopril 40 mg orally daily and Metoprolol 50 mg orally bid. 9. Acute blood loss anemia. expected outcome of surgery we will continue to monitor CBC and we will continue with iron supplement. 10. Hypokalemia. post replacement. 11. Recurrent depression. we will continue with Cymbalta 20 mg orally daily. 12. History of chronic tobacco use and dependence. patient quit in 2019. 13. DVT prophylaxis. we will start Heparin 5000 units SC Q 8 hours along with knee-high grant hose. 14. GI prophylaxis we will continue with Pantoprazole 40 mg orally daily. 15. Thank you for the consult we will follow up the patient with you. Discharge plan: Return to [facility]. Patient will need COVID-19 testing before discharge. Impression and plan of care have been directed as dictated by the signing physician. Lanette Mccarthy nurse practitioner acting as scribe for signing physician.
[2019-11-06 11:37] LABS: Glucose,Whole Blood 116 mg/dL (75-99)
[2019-11-06] MEDS: SIMETHICONE 40 MG/0.6 ML DROPS 2,000 MG/30 ML BOTTLE PO PRN ×3 (12:08→22:18)
--- NOTE | 2019-11-06 13:30 | P.PN ---
Subjective Progress Note Date: 11/06/19 Patient seen and examined at bedside. States she is feeling much better. Having ostomy function. Denies nausea or vomiting. Tolerating diet. States she has no abdominal pain. Objective - Vital Signs Vital signs: Vital Signs Temp 98.1 F 11/06/19 07:00 Pulse 74 11/06/19 07:00 Resp 16 11/06/19 07:00 BP 151/72 11/06/19 07:00 Pulse Ox 95 11/06/19 07:00 Intake & Output 11/05/19 11/06/19 11/06/19 18:59 06:59 18:59 Output Total 0 Balance 0 Output: Stool 0 Other: Voiding Method Toilet Toilet Toilet # Voids 1 4 1 # Bowel Movements 2 - Constitutional General appearance: Present: cooperative, no acute distress - Gastrointestinal Gastrointestinal Comment(s): Soft, nontender, nondistended, no rebound, no guarding, midline incision site healing well, ostomy exam unchanged from yesterday - Psychiatric Psychiatric: Present: A&O x's 3 - Labs CBC & Chem 7: 11/06/19 08:18 11/06/19 08:18 Labs: Abnormal Lab Results - Last 24 Hours (Table) 11/05/19 11/06/19 11/06/19 Range/Units 16:50 06:39 08:18 RBC 3.44 L (3.80-5.40) m/uL Hgb 9.5 L (11.4-16.0) gm/dL Hct 31.1 L (34.0-46.0) % MCHC 30.3 L (31.0-37.0) g/dL Plt Count 720 H (150-450) k/uL POC Glucose (mg/dL) 161 H 101 H (75-99) mg/dL Total Protein (6.3-8.2) g/dL Albumin (3.5-5.0) g/dL 11/06/19 11/06/19 Range/Units 08:18 11:36 RBC (3.80-5.40) m/uL Hgb (11.4-16.0) gm/dL Hct (34.0-46.0) % MCHC (31.0-37.0) g/dL Plt Count (150-450) k/uL POC Glucose (mg/dL) 116 H (75-99) mg/dL Total Protein 5.5 L (6.3-8.2) g/dL Albumin 3.2 L (3.5-5.0) g/dL Microbiology - Last 24 Hours (Table) 11/04/19 12:41 Blood Culture - Preliminary Blood No Growth after 24 hours Assessment and Plan Plan: 59-year-old female status post Matos's procedure approximately 2 weeks ago - Ostomy was thoroughly interrogated. The previous slough noted last week has been removed and ostomy is noted to be pink and widely patent. During exam, there was notable bleeding at the stoma after brushing with gauze. This does show that there is blood flow to the stoma and no current evidence of ischemia. The ostomy is also mildly retracted. There is mild excoriation at the inferior portion of the stoma of the skin. - Thickening of the colon noted on CT scan, concerning for colitis. Patient was evaluated by infectious disease. Antibiotics were switched to meropenem - Also, possible finding of phlegmon of the stoma site is noted on the CT read. No obvious abscess is noted. Will continue antibiotics. - Patient continues to improve. She will likely be discharged in the next 24 hours back to [facility].
[2019-11-06] MEDS: SODIUM FERRIC GLUCONAT-SUCROSE 125 MG in SODIUM CHLORIDE 0.9% 100 ML IVPB SCH (15:52)
[2019-11-06 16:50] LABS: Glucose,Whole Blood 161 mg/dL (75-99)
[2019-11-06] MEDS: CHOLECALCIFEROL 1,000 UNIT TAB PO SCH (17:29)
[2019-11-06] MEDS: POTASSIUM CHLORIDE ER 20 MEQ TAB.ER PO SCH (17:30)
[2019-11-06] MEDS: IPRATROPIUM-ALBUTEROL 3 ML NEB INHALATION SCH (20:27)
[2019-11-06 20:34] LABS: Glucose,Whole Blood 140 mg/dL (75-99)
[2019-11-06] MEDS: LATANOPROST 0.005% OPHTH DROPS 2.5 ML BTL BOTH EYES SCH (21:32)
[2019-11-06] MEDS: ONDANSETRON 4 MG TAB PO PRN (22:20)
--- NOTE | 2019-11-06 23:45 | PN ---
PROGRESS NOTE DATE OF SERVICE: 11/06/2019 REASON FOR FOLLOWUP: Abdominal abscess. INTERVAL HISTORY: The patient is currently afebrile. The patient is feeling better today. The patient abdominal pain has decreased in intensity. No chest pain, shortness of breath or cough. No nausea, vomiting or diarrhea. PHYSICAL EXAMINATION: Blood pressure 139/71, pulse of 76, temperature 99.1. She is 96% on room air. General description is a middle-aged female lying in bed in no distress. RESPIRATORY SYSTEM: Unlabored breathing, clear to auscultation anteriorly. HEART: S1, S2. Regular rate and rhythm. ABDOMEN: Soft, no tenderness. LABS: BUN of 7, creatinine 0.68, hemoglobin 9.5, white count 7.7. Blood culture has been negative so far. DIAGNOSTIC IMPRESSION AND PLAN: Patient with abdominal abscess in this patient with recent laparotomy for perforated diverticulitis. Previous cultures were positive for Citrobacter and Klebsiella. Patient admitted to the hospital with worsening abdominal pain with some new collection. The patient currently switched over to meropenem with the plan to either continue meropenem 1 gram q.8 or switched over to Invanz 1 gram daily for another 2 weeks and close outpatient followup. MMODL / IJN: [id number] /
[2019-11-07] MEDS: traMADol 50 MG TAB PO PRN ×4 (03:03→16:34)
[2019-11-07] MEDS: MEROPENEM 1 GM in SODIUM CHLORIDE 0.9% 100 ML IVPB SCH ×2 (05:37→15:25)
[2019-11-07 07:00] LABS: Glucose,Whole Blood 92 mg/dL (75-99)
[2019-11-07 08:04] VITALS: RESP 18
[2019-11-07] MEDS: SIMETHICONE 40 MG/0.6 ML DROPS 2,000 MG/30 ML BOTTLE PO PRN ×3 (08:52→16:38)
[2019-11-07] MEDS: amLODIPine 5 MG TAB PO SCH (08:53)
[2019-11-07] MEDS: lisinopriL 20 MG TAB PO SCH (08:53)
[2019-11-07] MEDS: HEPARIN SODIUM,PORCINE 5,000 UNIT/ML 1 ML VIAL SQ SCH ×2 (08:53→16:52)
[2019-11-07] MEDS: prednisoLONE ACETATE 1% OPHTH DROPS 5 ML BTL BOTH EYES SCH (08:53)
[2019-11-07] MEDS: METOPROLOL TARTRATE 50 MG TAB PO SCH ×2 (08:53→16:52)
[2019-11-07] MEDS: CALCIUM CARB-VIT D 500MG-200UN 1 EACH TAB PO SCH ×2 (08:53→16:52)
[2019-11-07] MEDS: HYDROCORTISONE 10 MG TAB PO SCH ×2 (08:54→16:52)
[2019-11-07] MEDS: DULoxetine HCL 20 MG CAPSULE.DR PO SCH (08:54)
[2019-11-07] MEDS: cycloSPORINE 0.05% OPHTH 0.4 ML DROPERETTE BOTH EYES SCH (08:55)
[2019-11-07] MEDS: MORPHINE SULFATE 4 MG/ML SYRINGE IV PRN (08:59)
[2019-11-07] MEDS: SYMBICORT 160-4.5 MCG INHALER INHALATION SCH (09:13)
--- NOTE | 2019-11-07 10:23 | P.PN ---
Subjective Progress Note Date: 11/07/19 This is a 59-year-old female patient of mine with past medical history of diabetes mellitus type 2, Curtis granulomatosis, gastroesophageal reflux disease, hypertension, patient was recently discharged from [facility] after she was admitted for increased abdominal pain, and diarrhea for 3 weeks prior to her presentation and she initially was found to have sigmoid diverticulitis that was treated with bowel rest and IV antibioics, unfortunately her hospital course was complicated with perforated diverticulitis and peritonitis for which she underwent Matos procedure with colostomy placement, and she was treated with Zosyn and had a midline so she was sent to [facility] last and for the past 3 days she has been complaining of bloody stool and increased abdominal pain and I received a call from my patient stating that she is in pain , so she was sent to the ER at [facility] and had a ct scan of the abdomen and pelvis with contrast that showed possible phlegmon and inflammatory changes at the stoma ite with fluid collection to left and mildy to the right, with increased thickening of the colon, she was maintained on IV Zosyn and she was admitted under General surgery and I was consulted for medical management. 11/04: Patient is seen in follow-up today. She is in her room on the MedSur floor. She states she is feeling much better today that she had a rough night. She has an area of point tenderness in the lower left quadrant but otherwise no significant abdominal pain. Stool for occult blood is positive and lactoferrin positive. Patient has been afebrile, heart rate 110, blood pressure 130/60, pulse ox 92% on room air. Blood sugars running between 119 and 134. WBC 8.8, hemoglobin 9.2, platelet count 692. BUN 9 and creatinine 0.79. Sodium 136. IV iron infusion will be ordered for today. Anticipate she'll be ready for discharge back to [facility] tomorrow. COVID-19 testing will be ordered. 11/05: Patient has been seen by Dr. Stone and antibiotics changed to meropenem. Abdominal pain is also improved. She is tolerating diet. Dr. Ontiveros does not have any intention of surgical intervention. She has been afebrile, heart rate 74, blood pressure 151/72, pulse ox 95% on room air. Repeat blood work reveals WBC 7.7, hemoglobin 9.5, platelet count 720. Electrolytes and renal function, liver function tests all normal. Discharge plan is to return to [facility]. 11/06: Pain and continues to be improving. She is eating up to 75% of her meals. No nausea or vomiting. She has a light brown semi-formed stool in colostomy. No signs of active bleeding. Dr. Stone is recommended meropenem 1 g every 8 hours for 2 week course. Patient has a midline in place. Patient has been afebrile, heart rate 74, blood pressure 140/70, pulse ox 90% on room air. Coronavirus not detected. Patient is scheduled to return to [facility] today in stable condition. Objective - Vital Signs Vital signs: Vital Signs Temp 98.7 F 11/07/19 07:00 Pulse 74 11/07/19 07:00 Resp 18 11/07/19 07:00 BP 144/78 11/07/19 07:00 Pulse Ox 98 11/07/19 07:00 Intake & Output 11/06/19 11/07/19 11/07/19 18:59 06:59 18:59 Intake Total 100 Balance 100 Intake: Oral 100 Other: Voiding Method Toilet Toilet Toilet # Voids 1 2 - Exam Review of Systems Constitutional: Reports chronic pain, Reports fatigue, Reports weakness, Denies anorexia Eyes: denies blurred vision, denies bulging eye, denies decreased vision Ears, nose, mouth and throat: Denies dysphagia, Denies sore throat Cardiovascular: Denies chest pain, Denies decreased exercise tolerance, Denies lightheadedness, Denies rapid heart beat, Denies shortness of breath, Denies syncope Respiratory: Denies congestion, Denies cough with sputum, Denies home oxygen, Denies sleep apnea, Denies snoring, Denies wheezing Gastrointestinal: Reports abdominal pain improving, denies hematochezia, denies loss of appetite, denies nausea, Denies excessive gas, Denies heartburn, Denies hematemesis, Denies melena, Denies vomiting Genitourinary: Reports nocturia, Denies dysuria Musculoskeletal: Denies myalgias Musculoskeletal: absent: ankle pain, ankle stiffness, ankle swelling, elbow pain, elbow stiffness, elbow swelling, foot pain, foot stiffness, foot swelling, hand pain, hand stiffness, hand swelling, hip pain, hip stiffness, hip swelling, knee pain, knee stiffness, knee swelling, shoulder pain, shoulder stiffness, shoulder swelling, wrist pain, wrist stiffness, wrist swelling Integumentary: Denies pruritus, Denies rash Neurological: Denies numbness, Denies weakness Psychiatric: Reports anxiety, denies tearfulness Endocrine: Denies fatigue, Denies weight change Physical examination: GEN: This is a 59-year-old obese female. She is resting in bed and appears to be comfortable. HEENT: head is atraumatic normocephalic pupils were equal round reactive to light and accomodations, extra ocular muscle movement were intact, mucous membranes of the mouth are somewhat dry. Neck: supple no JVP. Chest: decrease breath sounds at the bases with few ronchi no expiratory wheezes, no chest wall tenderness or intercostal retraction. Heart: firs heart sound is depressed, second heart sound is normal, there is no gallop or murmur. Abdomen: distended, kilo in mid line with no drainage, there is colostomy bag with stool in it, there is moderate tenderness in the left lower quadrant and bowel sounds. No blood in ostomy bag. Normal brown formed stool in colostomy. Extremities: there is no edema or calf tenderness, DP +2 bilaterally. Neurologic examination: patient is awake , alert and oriented X 3 CN II-XII are grossly intact, muscle power 5/5 in bilateral upper and lower extremities, Deep tendon reflexes are normal. - Labs CBC & Chem 7: 11/06/19 08:18 11/06/19 08:18 Labs: Abnormal Lab Results - Last 24 Hours (Table) 11/06/19 11/06/19 11/06/19 Range/Units 11:36 16:48 20:07 POC Glucose (mg/dL) 116 H 161 H 140 H (75-99) mg/dL Microbiology - Last 24 Hours (Table) 11/04/19 13:42 Stool Culture - Preliminary Stool 11/04/19 12:41 Blood Culture - Preliminary Blood No Growth after 48 hours Assessment and Plan Plan: 1. Possible phlegmon formation at the ostomy site with Peritonitis status post Matos pouch due to perforated diverticulitis with peritonitis. Patient is currently on meropenem per infectious disease. Dr. Stone has recommend two-week course of Invanz. Patient has midline in place. 2. Status post Matos procedure with colostomy placement. continue treatment as in paragraph # 1. 3. Mild hyponatremia due to hypovolemia. we will continue with IVF at 100 ml/h. 4. COPD without exacerbation. we will continue with Duoneb 3 ml nebulization 4 times daily along with Symbicort 160/4.5 mcg 2 puffs inhalation bid. 5. Adrenal insufficiency disorder. we will continue with Cortef 25 mg po in AM and 15 mg in PM. 6. History of [place] granulomatosis. we will continue to monitor and she cerrato been off Retuxan after surgery to avoid more complications. 7. GERD. we will continue with Omeprazole. 8. Hypertension and hypertensive cardiovascular disease. we will continue with Amlodipine 5 mg orally daily, Lisinopril 40 mg orally daily and Metoprolol 50 mg orally bid. 9. Acute blood loss anemia. expected outcome of surgery we will continue to monitor CBC and we will continue with iron supplement. 10. Hypokalemia. post replacement. 11. Recurrent depression. we will continue with Cymbalta 20 mg orally daily. 12. History of chronic tobacco use and dependence. patient quit in 2019. 13. DVT prophylaxis. we will start Heparin 5000 units SC Q 8 hours along with knee-high grant hose. 14. GI prophylaxis we will continue with Pantoprazole 40 mg orally daily. 15. COVID-19 infection not present. Discharge plan: Return to [facility] under the care of Dr. Alvarez. Impression and plan of care have been directed as dictated by the signing physician. Lanette Mccarthy nurse practitioner acting as scribe for signing physician.
[2019-11-07] MEDS: SODIUM CHLORIDE 0.9% 1,000 ML IV SCH (10:55)
[2019-11-07 11:25] LABS: Glucose,Whole Blood 125 mg/dL (75-99)
--- NOTE | 2019-11-07 14:22 | P.PN ---
Subjective Progress Note Date: 11/07/19 patient doing well tolerating diet, gas and stool in bag, denies abdominal pain Objective - Vital Signs Vital signs: Vital Signs Temp 98.7 F 11/07/19 07:00 Pulse 74 11/07/19 07:00 Resp 18 11/07/19 07:00 BP 144/78 11/07/19 07:00 Pulse Ox 98 11/07/19 07:00 Intake & Output 11/06/19 11/07/19 11/07/19 18:59 06:59 18:59 Intake Total 100 Balance 100 Intake: Oral 100 Other: Voiding Method Toilet Toilet Toilet # Voids 1 2 - Constitutional General appearance: Present: cooperative - Cardiovascular Rhythm: regular - Gastrointestinal Gastrointestinal Comment(s): s/nt/nd ostomy pink and patent with gas and stool in bag - Labs CBC & Chem 7: 11/06/19 08:18 11/06/19 08:18 Labs: Abnormal Lab Results - Last 24 Hours (Table) 11/06/19 11/06/19 11/07/19 Range/Units 16:48 20:07 11:19 POC Glucose (mg/dL) 161 H 140 H 125 H (75-99) mg/dL Microbiology - Last 24 Hours (Table) 11/04/19 13:42 Stool Culture - Preliminary Stool 11/04/19 12:41 Blood Culture - Preliminary Blood No Growth after 48 hours Assessment and Plan Assessment: history of perforated diverticulosis Plan: stable from surgical standpoint for DC to nursing/rehab facility. patient will follow up with Dr. Ontiveros next week
--- NOTE | 2019-11-07 14:45 | P.DS ---
Providers Date of admission: 11/04/19 15:59 Expected date of discharge: 11/07/19 Attending physician: Michelle Ontiveros DO Consults: 11/04/19 15:59 Consult Physician Stat Consulting Provider: Connor Alvarez Consult Reason/Comments: medical mgmt, colitis Do you want consulting provider notified?: Yes Consult Physician Stat Consulting Provider: Phillip Stone Consult Reason/Comments: ostomy site infection, colitis Do you want consulting provider notified?: Yes Primary care physician: Connor Alvarez Hospital Course: This is a 59-year-old female patient of [place] with past medical history of diabetes mellitus type 2, Curtis granulomatosis, gastroesophageal reflux disease, hypertension, patient was recently discharged from [facility] after she was admitted for increased abdominal pain, and diarrhea for 3 weeks prior to her presentation and she initially was found to have sigmoid diverticulitis that was treated with bowel rest and IV antibioics, unfortunately her hospital course was complicated with perforated diverticulitis and peritonitis for which she underwent Matos procedure with colostomy placement, and she was treated with Zosyn and had a midline so she was sent to [facility] last and for the past 3 days she has been complaining of bloody stool and increased abdominal pain and I received a call from my patient stating that she is in pain , so she was sent to the ER at [facility] and had a ct scan of the abdomen and pelvis with contrast that showed possible phlegmon and inflammatory changes at the stoma ite with fluid collection to left and mildy to the right, with increased thickening of the colon, she was maintained on IV Zosyn and she was admitted under General surgery and I was consulted for medical management. 11/04: Patient is seen in follow-up today. [facility]. She states she is feeling much better today that she had a rough night. She has an area of point tenderness in the lower left quadrant but otherwise no significant abdominal pain. Stool for occult blood is positive and lactoferrin positive. Patient has been afebrile, heart rate 110, blood pressure 130/60, p ulse ox 92% on room air. Blood sugars running between 119 and 134. WBC 8.8, hemoglobin 9.2, platelet count 692. BUN 9 and creatinine 0.79. Sodium 136. IV iron infusion will be ordered for today. Anticipate she'll be ready for discharge back to [facility] tomorrow. COVID-19 testing will be ordered. 11/05: Patient has been seen by Dr. Stone and antibiotics changed to meropenem. Abdominal pain is also improved. She is tolerating diet. Dr. Ontiveros does not have any intention of surgical intervention. She has been afebrile, heart rate 74, blood pressure 151/72, pulse ox 95% on room air. Repeat blood work reveals WBC 7.7, hemoglobin 9.5, platelet count 720. Electrolytes and renal function, liver function tests all normal. Discharge plan is to return to [facility]. 11/06: Pain and continues to be improving. She is eating up to 75% of her meals. No nausea or vomiting. She has a light brown semi-formed stool in colostomy. No signs of active bleeding. Dr. Stone is recommended meropenem 1 g every 8 hours for 2 week course. Patient has a midline in place. Patient has been afebrile, heart rate 74, blood pressure 140/70, pulse ox 90% on room air. Coronavirus not detected. Patient is scheduled to return to [facility] today in stable condition. Discharge diagnoses: 1. Possible phlegmon formation at the ostomy site is essentially ruled out with patient being treated aggressively due to underlying history of Curtis's granulomatosis. 2. Status post Matos procedure for perforated diverticulitis and peritonitis with colostomy placement. . 3. Mild hyponatremia due to hypovolemia. . 4. COPD without exacerbation. 5. Adrenal insufficiency disorder. 6. History of [place] granulomatosis. 7. GERD. 8. Hypertension and hypertensive cardiovascular disease. 9. Acute blood loss anemia. 10. Hypokalemia. post replacement. 11. Recurrent depression. 12. History of chronic tobacco use and dependence. patient quit in 2019. 13. COVID-19 infection not present. Discharge plan: Return to [facility] under the care of Dr. Alvarez. Impression and plan of care have been directed as dictated by the signing physician. Lanette Mccarthy nurse practitioner acting as scribe for signing physician. Patient Condition at Discharge: Good Plan - Discharge Summary Discharge Rx Participant: No New Discharge Prescriptions: New Simethicone 40 mg/0.6 ml Drops [Mylicon Drops] 80 mg PO PCHS PRN ml PRN Reason: Bloating Meropenem [Merrem] 1 gm IVPB Q8H #42 vial Continue Pantoprazole Sodium [Protonix] 40 mg PO DAILY@0600 Calcium Carbonate/Vitamin D3 [Calcium 600-Vit D3 200 Tablet] 1 tab PO BID@0800,1700 Hydrocortisone 25 mg PO DAILY@0800 Hydrocortisone [Cortef] 15 mg PO DAILY@1500 Budesonide-Formot 160-4.5 Mcg [Symbicort 160-4.5 Mcg Inhaler] 2 puff INHALATION RT-BID Cholecalciferol [Vitamin D3 (25 Mcg = 1000 Iu)] 5,000 unit PO DAILY@1700 DULoxetine HCL [Cymbalta] 20 mg PO DAILY@0800 Albuterol Sulfate [Ventolin HFA] 2 puff INHALATION RT-Q4H PRN PRN Reason: Shortness Of Breath Ipratropium-Albuterol Nebulize [Duoneb 0.5 mg-3 mg/3 ml Soln] 3 ml INHALATION RT-HS@2100 Ondansetron [Zofran] 4 mg PO Q6H PRN PRN Reason: Nausea Magnesium Hydroxide [Milk of Magnesia Concentrate] 7,200 mg PO Q48H PRN PRN Reason: Constipation bisacodyL [Bisacodyl] 10 mg RECTAL DAILY PRN PRN Reason: Constipation Na Phos,M-B/Na Phos,Di-Ba [Fleet Adult] 133 ml RECTAL DAILY PRN PRN Reason: Constipation lisinopriL 40 mg PO DAILY@0800 prednisoLONE ACETATE 1% OPHTH [Pred Forte 1%] 1 drops BOTH EYES DAILY@0800 cycloSPORINE 0.05% OPHTH SOLN [Restasis] 1 drop BOTH EYES Q12HR amLODIPine [Norvasc] 5 mg PO DAILY@0800 Potassium Chloride ER [K-Dur 20] 20 meq PO DAILY@1700 Metoprolol Tartrate [Lopressor] 50 mg PO BID@0800,1700 Latanoprost Ophth [Xalatan 0.005%] 1 drop BOTH EYES HS@2100 traMADol HCl [Ultram] 50 mg PO Q4H PRN #18 tab PRN Reason: Pain Control Discontinued Piperacillin-Tazobactam [Zosyn] 3.375 gm IVPB Q6H #84 bag Discharge Medication List Pantoprazole Sodium [Protonix] 40 mg PO DAILY@0600 08/22/18 [History] Calcium Carbonate/Vitamin D3 [Calcium 600-Vit D3 200 Tablet] 1 tab PO BID@0800,1700 01/05/19 [History] Hydrocortisone 25 mg PO DAILY@0800 06/06/19 [History] Hydrocortisone [Cortef] 15 mg PO DAILY@1500 06/06/19 [History] Budesonide-Formot 160-4.5 Mcg [Symbicort 160-4.5 Mcg Inhaler] 2 puff INHALATION RT-BID 06/09/19 [History] Albuterol Sulfate [Ventolin HFA] 2 puff INHALATION RT-Q4H PRN 10/16/19 [History] Cholecalciferol [Vitamin D3 (25 Mcg = 1000 Iu)] 5,000 unit PO DAILY@169910/16/19 [History] DULoxetine HCL [Cymbalta] 20 mg PO DAILY@0810/16/19 [History] Ipratropium-Albuterol Nebulize [Duoneb 0.5 mg-3 mg/3 ml Soln] 3 ml INHALATION RT-HS@209910/16/19 [History] Latanoprost Ophth [Xalatan 0.005%] 1 drop BOTH EYES HS@209911/04/19 [History] Magnesium Hydroxide [Milk of Magnesia Concentrate] 7,200 mg PO Q48H PRN 11/04/19 [History] Metoprolol Tartrate [Lopressor] 50 mg PO BID@0800,1700 11/04/19 [History] Na Phos,M-B/Na Phos,Di-Ba [Fleet Adult] 133 ml RECTAL DAILY PRN 11/04/19 [History] Ondansetron [Zofran] 4 mg PO Q6H PRN 11/04/19 [History] Potassium Chloride ER [K-Dur 20] 20 meq PO DAILY@169911/04/19 [History] amLODIPine [Norvasc] 5 mg PO DAILY@0800 11/04/19 [History] bisacodyL [Bisacodyl] 10 mg RECTAL DAILY PRN 11/04/19 [History] cycloSPORINE 0.05% OPHTH SOLN [Restasis] 1 drop BOTH EYES Q12HR 11/04/19 [History] lisinopriL 40 mg PO DAILY@0800 11/04/19 [History] prednisoLONE ACETATE 1% OPHTH [Pred Forte 1%] 1 drops BOTH EYES DAILY@0800 11/04/19 [History] Meropenem [Merrem] 1 gm IVPB Q8H #42 vial 11/07/19 [Rx] Simethicone 40 mg/0.6 ml Drops [Mylicon Drops] 80 mg PO PCHS PRN ml 11/07/19 [Rx] traMADol HCl [Ultram] 50 mg PO Q4H PRN #18 tab 11/07/19 [Rx] Follow up Appointment(s)/Referral(s): Connor Alvarez MD [Primary Care Provider] - 1 Week (At [facility]) Michelle Ontiveros DO [Doctor of Osteopathic Medicine] - 1 Week Phillip Stone MD [STAFF PHYSICIAN] - 1 Week Activity/Diet/Wound Care/Special Instructions: Discharge Disposition: TRANSFER TO SNF/ECF
[2019-11-07 15:24] VITALS: BP 129/72; PULSE 84; TEMP 98.5
[2019-11-07] MEDS: CHOLECALCIFEROL 1,000 UNIT TAB PO SCH (16:51)
[2019-11-07] MEDS: POTASSIUM CHLORIDE ER 20 MEQ TAB.ER PO SCH (16:52)
--- NOTE | 2019-11-07 17:11 | PN ---
PROGRESS NOTE DATE OF SERVICE: 11/07/2019 REASON FOR FOLLOWUP: Abdominal abscess. INTERVAL HISTORY: Patient is currently afebrile. The patient is breathing comfortably. The patient denies having any chest pain. No shortness of breath or cough. Abdominal pain has improved. No nausea, vomiting or diarrhea. PHYSICAL EXAMINATION: Blood pressure 129/72 with a pulse of 84, temperature 98.5. She is 97% on room air. General description is a middle-aged female lying in bed in no distress. Respiratory system: Unlabored breathing, clear to auscultation anteriorly. Heart S1, S2. Regular rate and rhythm. Abdomen soft, no tenderness. LABS: No new labs have been obtained today. Blood culture has been negative. DIAGNOSTIC IMPRESSION AND PLAN: Patient with abdominal abscess in this patient with recent history of perforated diverticulitis and abscess that was drained. Cultures were positive for Citrobacter and Klebsiella ( ) Zosyn therapy. The patient is currently on meropenem and seems to have shown clinical improvement. Recommend to keep the patient on meropenem for a total of 2 weeks and close outpatient followup. Continue supportive care. MMODL / IJN: [id number] /
== END 2019-11-07 17:14 | DRG 393 ==
LOC: EC 11:20 → 4SSUR 15:59
PROVIDERS: ADMIT Surgery; ATTEND Surgery
DX: K94.01 Colostomy hemorrhage (principal); K65.1 Peritoneal abscess; M31.30 Wegener's granulomatosis without renal involvement; F33.9 Major depressive disorder, recurrent, unspecified; E87.1 Hypo-osmolality and hyponatremia; E27.3 Drug-induced adrenocortical insufficiency; D62 Acute posthemorrhagic anemia; K57.20 Diverticulitis of large intestine with perforation and abscess without bleeding; I11.9 Hypertensive heart disease without heart failure; E11.9 Type 2 diabetes mellitus without complications; J44.9 Chronic obstructive pulmonary disease, unspecified; Z20.828 Contact with and (suspected) exposure to other viral communicable diseases; E86.1 Hypovolemia; E87.6 Hypokalemia; K21.9 Gastro-esophageal reflux disease without esophagitis; I25.2 Old myocardial infarction; T38.0X5A Adverse effect of glucocorticoids and synthetic analogues, initial encounter; T45.1X5A Adverse effect of antineoplastic and immunosuppressive drugs, initial encounter; E66.9 Obesity, unspecified; Z68.33 Body mass index [BMI] 33.0-33.9, adult; Z79.51 Long term (current) use of inhaled steroids; Z79.52 Long term (current) use of systemic steroids; Z79.899 Other long term (current) drug therapy; Z98.891 History of uterine scar from previous surgery; Z90.2 Acquired absence of lung [part of]; Z86.19 Personal history of other infectious and parasitic diseases; Z87.891 Personal history of nicotine dependence; Z87.81 Personal history of (healed) traumatic fracture; Z98.890 Other specified postprocedural states; Z87.19 Personal history of other diseases of the digestive system; Z92.21 Personal history of antineoplastic chemotherapy; Z87.09 Personal history of other diseases of the respiratory system; Z87.42 Personal history of other diseases of the female genital tract; Z88.1 Allergy status to other antibiotic agents; Z88.5 Allergy status to narcotic agent; Z88.8 Allergy status to other drugs, medicaments and biological substances; Z82.49 Family history of ischemic heart disease and other diseases of the circulatory system; Z84.1 Family history of disorders of kidney and ureter; Z81.8 Family history of other mental and behavioral disorders
CPT/HCPCS: 36415; 74177; 80053; 81003; 82150; 82272; 83605; 83630; 83690; 85025; 85610; 85730; 87040; 87045; 87046; 87635; 94640; 96361; 96365; 96375; 96376; 99285

== ENCOUNTER 2019-11-30 17:19 | Emergency (ER) | payer BC ==
[2019-11-30 17:45] VITALS: RESP 18; TEMP 98.5
[2019-11-30 18:59] VITALS: BP 142/77; PULSE 68
--- NOTE | 2019-11-30 19:14 | ED ---
General Adult HPI - General Chief complaint: Abdominal Pain Stated complaint: ABD Post op last month Time Seen by Provider: 11/30/19 18:19 Source: patient, RN notes reviewed, old records reviewed Mode of arrival: ambulatory Limitations: no limitations - History of Present Illness Initial comments: 59-year-old female presenting for evaluation of pain at the upper part of an abdominal incision. Patient is proximally 5 weeks postop bowel resection and colostomy. She had sutures removed at the top of her incision. This week. These were (intentionally because the patient has history of a vasculitis and is on chronic steroids. She was discharged from the senior living 2 [facility] ago and has been lifting herself out of bed without the assistance of a power adjustment bed. She's had some increased pain at the site. No bleeding. She is having normal output in her ostomy. No vomiting. No fever - Related Data Home Medications Medication Instructions Recorded Confirmed Pantoprazole Sodium [Protonix] 40 mg PO DAILY@0600 08/22/18 11/04/19 Calcium Carbonate/Vitamin D3 1 tab PO BID@0800,1700 01/05/19 11/04/19 [Calcium 600-Vit D3 200 Tablet] Hydrocortisone 25 mg PO DAILY@0800 06/06/19 11/04/19 Hydrocortisone [Cortef] 15 mg PO DAILY@1500 06/06/19 11/04/19 Budesonide-Formot 160-4.5 Mcg 2 puff INHALATION RT-BID 06/09/19 11/04/19 [Symbicort 160-4.5 Mcg Inhaler] Albuterol Sulfate [Ventolin HFA] 2 puff INHALATION RT-Q4H PRN 10/16/19 11/04/19 Cholecalciferol [Vitamin D3 (25 5,000 unit PO DAILY@1700 10/16/19 11/04/19 Mcg = 1000 Iu)] DULoxetine HCL [Cymbalta] 20 mg PO DAILY@79910/16/19 11/04/19 Ipratropium-Albuterol Nebulize 3 ml INHALATION RT-HS@209910/16/19 11/04/19 [Duoneb 0.5 mg-3 mg/3 ml Soln] Latanoprost Ophth [Xalatan 0.005%] 1 drop BOTH EYES HS@209911/04/19 11/04/19 Magnesium Hydroxide [Milk of 7,200 mg PO Q48H PRN 11/04/19 11/04/19 Magnesia Concentrate] Metoprolol Tartrate [Lopressor] 50 mg PO BID@0800,1700 11/04/19 11/04/19 Na Phos,M-B/Na Phos,Di-Ba [Fleet 133 ml RECTAL DAILY PRN 11/04/19 11/04/19 Adult] Ondansetron [Zofran] 4 mg PO Q6H PRN 11/04/19 11/04/19 Potassium Chloride ER [K-Dur 20] 20 meq PO DAILY@1700 11/04/19 11/04/19 amLODIPine [Norvasc] 5 mg PO DAILY@0800 11/04/19 11/04/19 bisacodyL [Bisacodyl] 10 mg RECTAL DAILY PRN 11/04/19 11/04/19 cycloSPORINE 0.05% OPHTH SOLN 1 drop BOTH EYES Q12HR 11/04/19 11/04/19 [Restasis] lisinopriL 40 mg PO DAILY@0800 11/04/19 11/04/19 prednisoLONE ACETATE 1% OPHTH 1 drops BOTH EYES DAILY@0800 11/04/19 11/04/19 [Pred Forte 1%] Previous Rx's Medication Instructions Recorded Meropenem [Merrem] 1 gm IVPB Q8H #42 vial 11/07/19 Simethicone 40 mg/0.6 ml Drops 80 mg PO PCHS PRN ml 11/07/19 [Mylicon Drops] traMADol HCl [Ultram] 50 mg PO Q4H PRN #18 tab 11/07/19 Allergies Allergy/AdvReac Type Severity Reaction Status Date / Time azathioprine [From Imuran] Allergy Vomiting Verified 11/30/19 17:45 codeine Allergy Nausea Verified 11/30/19 17:45 metronidazole [From Flagyl] Allergy Anaphylaxis Verified 11/30/19 17:45 methotrexate AdvReac Unknown Verified 11/30/19 17:45 Review of Systems ROS Statement: Those systems with pertinent positive or pertinent negative responses have been documented in the HPI. ROS Other: All systems not noted in ROS Statement are negative. Past Medical History Past Medical History: Diabetes Mellitus, GERD/Reflux, Hypertension, Myocardial Infarction ([place]), Respiratory Disorder Additional Past Medical History / Comment(s): Hx. of Curtis's. Chemo for [place], endometriosis, ovarian cysts, STATES SILENT [place] 2016 AND BORDERLINE DM DUE TO CHRONIC PREDNISONE USE. perf bowel. Last Myocardial Infarction Date:: 2015 History of Any Multi-Drug Resistant Organisms: C-DIFF Date of last positivie culture/infection: 2014 MDRO Source:: Stool Past Surgical History: Section Additional Past Surgical History / Comment(s): Right lung resection 2016, L humerus double compound fx repair, colonoscopy, Hemorrhoidectomy. Past Anesthesia/Blood Transfusion Reactions: No Reported Reaction Past Psychological History: No Psychological Hx Reported Smoking Status: Former smoker Past Alcohol Use History: None Reported Past Drug Use History: None Reported - Past Family History Mother Family Medical History: Coronary Artery Disease (CAD) Additional Family Medical History / Comment(s): Mother at age 78 with history of coronary artery disease status post multiple stents. Father Family Medical History: Myocardial Infarction ([place]) Additional Family Medical History / Comment(s): Father at age 45 from myocardial infarction. Brother(s) Family Medical History: Hypertension Additional Family Medical History / Comment(s): Patient has 1 brother with hypertension and kidney stones. Sister(s) Family Medical History: No Reported History Additional Family Medical History / Comment(s): Patient has one sister with CHRONIC HYPERCOHDRIA AND GALLSTONES Daughter(s) Family Medical History: No Reported History Additional Family Medical History / Comment(s): Patient has 2 daughters with no major medical problems. General Exam Limitations: no limitations General appearance: alert, in no apparent distress Head exam: Present: atraumatic, normocephalic Eye exam: Present: normal appearance, PERRL ENT exam: Present: normal exam Neck exam: Present: normal inspection. Absent: tenderness Respiratory exam: Present: normal lung sounds bilaterally. Absent: respiratory distress, wheezes Cardiovascular Exam: Present: regular rate, normal rhythm GI/Abdominal exam: Present: soft, other (Ostomy is pink, minimal stool output, incision is clean and well-healed, no dehiscence, no induration. There is no fluctuance or erythema.). Absent: distended, tenderness, guarding Course Vital Signs 11/30/19 11/30/19 17:40 18:56 Temperature 98.5 F Pulse Rate 74 68 Respiratory 18 18 Rate Blood Pressure 134/82 142/77 O2 Sat by Pulse 98 98 Oximetry Medical Decision Making - Medical Decision Making 58-year-old female with pain near her incision. There is no signs of infection, I do not feel hernia, she is moving her bowels normally and has not vomited. She is afebrile. I did discuss case with Dr. Carson, covering for Dr. Ontiverso. Adkins that this can be evaluated as an outpatient on Sunday which is 2 days from now. Patient is agreeable with this plan. She will monitor for signs of infection or worsening pain. She will return with worsening or changing symptoms. Disposition Clinical Impression: Pain at surgical incision Disposition: HOME SELF-CARE Condition: Good Additional Instructions: Please monitor for redness, worsening pain. Please follow up with Dr. Ontiveros on Sunday. Is patient prescribed a controlled substance at d/c from ED?: No Referrals: Connor Alvarez MD [Primary Care Provider] - 1-2 days Michelle Ontiveros DO [Doctor of Osteopathic Medicine] - 1-2 days Time of Disposition: 19:13
== END 2019-11-30 19:26 | disposition home or self-care (01) ==
LOC: EC 17:19
DX: G89.18 Other acute postprocedural pain (principal); R10.10 Upper abdominal pain, unspecified; I10 Essential (primary) hypertension; K21.9 Gastro-esophageal reflux disease without esophagitis; J98.9 Respiratory disorder, unspecified; I25.2 Old myocardial infarction; Z79.899 Other long term (current) drug therapy; Z79.51 Long term (current) use of inhaled steroids; Z88.5 Allergy status to narcotic agent; Z88.8 Allergy status to other drugs, medicaments and biological substances; Z87.891 Personal history of nicotine dependence; Z98.890 Other specified postprocedural states; Z93.3 Colostomy status
CPT/HCPCS: 99284

== ENCOUNTER 2019-12-30 08:40 | Inpatient (IN) | payer BC, OTHER ==
[2019-12-30] MEDS ORDERED: SODIUM CHLORIDE 0.9% 500 ML 500 ML IV STA (08:54)
[2019-12-30] MEDS ORDERED: ONDANSETRON 4 MG/2 ML VIAL IVP STA (08:54)
[2019-12-30] MEDS ORDERED: HYDROmorphone 0.5 MG/0.5 ML SYRINGE IVP STA (08:54)
[2019-12-30] MEDS ORDERED: SODIUM CHLORIDE 0.9% 1,000 ML IV STA (08:54)
--- NOTE | 2019-12-30 08:59 | ED ---
Abdominal Pain HPI - General Source: patient, RN notes reviewed Mode of arrival: ambulatory Limitations: no limitations <Wiliam Cuevas - Last Filed: 12/30/19 11:25> <Toni Nuñez - Last Filed: 12/30/19 11:30> - General Chief Complaint: Abdominal Pain Stated Complaint: ABD ISSUES Time Seen by Provider: 12/30/19 08:46 - History of Present Illness Initial Comments: This a 59-year-old female presents emergency from chief complaint of abdominal pain, no output in her colostomy. Patient states that she's not had any output in 2 days. Patient states she had a colostomy [address] Ontiveros for diverticulitis infection. Patient states that she's having increasing abdominal pain and distention and has become very nauseated with vomiting last 4 hours. She has appears or chills no dysuria no hematuria patient states her primary care physician is Dr. [place]. Patient denies any headache, chest pain, joesph rtness breath. (Wiliam Cuevas) - Related Data Home Medications Medication Instructions Recorded Confirmed Pantoprazole Sodium [Protonix] 40 mg PO DAILY@0600 08/22/18 12/30/19 Hydrocortisone 25 mg PO DAILY@0800 06/06/19 12/30/19 Hydrocortisone [Cortef] 15 mg PO DAILY@1500 06/06/19 12/30/19 Budesonide-Formot 160-4.5 Mcg 2 puff INHALATION RT-BID 06/09/19 12/30/19 [Symbicort 160-4.5 Mcg Inhaler] Albuterol Sulfate [Ventolin HFA] 2 puff INHALATION RT-Q4H PRN 10/16/19 12/30/19 DULoxetine HCL [Cymbalta] 20 mg PO DAILY@0810/16/19 12/30/19 Latanoprost Ophth [Xalatan 0.005%] 1 drop BOTH EYES HS@2100 11/04/19 12/30/19 Metoprolol Tartrate [Lopressor] 50 mg PO BID@0800,1700 11/04/19 12/30/19 Potassium Chloride ER [K-Dur 20] 20 meq PO DAILY@1700 11/04/19 12/30/19 amLODIPine [Norvasc] 5 mg PO DAILY@0800 11/04/19 12/30/19 cycloSPORINE 0.05% OPHTH SOLN 1 drop BOTH EYES Q12HR 11/04/19 12/30/19 [Restasis] Gabapentin [Neurontin] 300 mg PO BID 12/30/19 12/30/19 Ibuprofen [Motrin] 600 mg PO Q8HR PRN 12/30/19 12/30/19 Mirabegron [Myrbetriq] 50 mg PO DAILY 12/30/19 12/30/19 Ondansetron Odt [Zofran Odt] 4 mg PO Q12HR PRN 12/30/19 12/30/19 Simethicone 40 mg/0.6 ml Drops 80 mg PO AC-TID 12/30/19 12/30/19 [Mylicon Drops] lisinopriL [Zestril] 20 mg PO DAILY 12/30/19 12/30/19 traMADol HCl [Ultram] 50 mg PO BID PRN 12/30/19 12/30/19 Allergies Allergy/AdvReac Type Severity Reaction Status Date / Time azathioprine [From Imuran] Allergy Vomiting Verified 12/30/19 09:43 codeine Allergy Nausea Verified 12/30/19 09:43 metronidazole [From Flagyl] Allergy Anaphylaxis Verified 12/30/19 09:43 methotrexate AdvReac Unknown Verified 12/30/19 09:43 Review of Systems ROS Other: All systems not noted in ROS Statement are negative. <Wiliam Cuevas - Last Filed: 12/30/19 11:25> ROS Other: All systems not noted in ROS Statement are negative. <Toni Nuñez - Last Filed: 12/30/19 11:30> ROS Statement: Those systems with pertinent positive or pertinent negative responses have been documented in the HPI. Past Medical History Past Medical History: Diabetes Mellitus, GERD/Reflux, Hypertension, Myocardial Infarction (NE), Respiratory Disorder Additional Past Medical History / Comment(s): Hx. of Curtis's. Chemo for Wegeners, endometriosis, ovarian cysts, STATES SILENT NE 2015 AND BORDERLINE DM DUE TO CHRONIC PREDNISONE USE. perf bowel. Last Myocardial Infarction Date:: 2015 History of Any Multi-Drug Resistant Organisms: C-DIFF Date of last positivie culture/infection: 2014 MDRO Source:: Stool Past Surgical History: Section Additional Past Surgical History / Comment(s): Right lung resection 2016, L humerus double compound fx repair, colonoscopy, Hemorrhoidectomy. Past Anesthesia/Blood Transfusion Reactions: No Reported Reaction Past Psychological History: No Psychological Hx Reported Smoking Status: Former smoker Past Alcohol Use History: None Reported Past Drug Use History: None Reported - Past Family History Mother Family Medical History: Coronary Artery Disease (CAD) Additional Family Medical History / Comment(s): Mother at age 78 with history of coronary artery disease status post multiple stents. Father Family Medical History: Myocardial Infarction (NE) Additional Family Medical History / Comment(s): Father at age 45 from myocardial infarction. Brother(s) Family Medical History: Hypertension Additional Family Medical History / Comment(s): Patient has 1 brother with hypertension and kidney stones. Sister(s) Family Medical History: No Reported History Additional Family Medical History / Comment(s): Patient has one sister with CHRONIC HYPERCOHDRIA AND GALLSTONES Daughter(s) Family Medical History: No Reported History Additional Family Medical History / Comment(s): Patient has 2 daughters with no major medical problems. <Wiliam Cuevas - Last Filed: 12/30/19 11:25> General Exam Limitations: no limitations General appearance: alert, in no apparent distress Head exam: Present: atraumatic, normocephalic, normal inspection Neck exam: Present: normal inspection, full ROM. Absent: tenderness, meningismus, lymphadenopathy Respiratory exam: Present: normal lung sounds bilaterally. Absent: respiratory distress, wheezes, rales, rhonchi, stridor Cardiovascular Exam: Present: regular rate, normal rhythm, normal heart sounds. Absent: systolic murmur, diastolic murmur, rubs, gallop, clicks GI/Abdominal exam: Present: soft, distended, tenderness, normal bowel sounds, other (Colostomy left lower there is no stool noted). Absent: guarding, rebound, rigid Back exam: Absent: CVA tenderness (R), CVA tenderness (L) Neurological exam: Present: alert, oriented X3 Skin exam: Present: warm, dry, intact, normal color. Absent: rash <Wiliam Cuevas - Last Filed: 12/30/19 11:25> Course <Toni Nuñez - Last Filed: 12/30/19 11:30> Vital Signs 12/30/19 08:41 Temperature 97.4 F L Pulse Rate 88 Respiratory 18 Rate Blood Pressure 165/100 O2 Sat by Pulse 99 Oximetry - Reevaluation(s) Reevaluation #1: 12/30/19 11:30 The case is discussed with Dr. Alvarez. Patient will be admitted she does have evidence of abdominal pain and worsening colitis. She's had no output from her colostomy for 2 days and has nausea vomiting today. Dr Ontiveros will be consulted. (Toni Nuñez) Medical Decision Making - Lab Data Result diagrams: 12/30/19 09:04 12/30/19 09:04 <Wiliam Cuevas - Last Filed: 12/30/19 11:25> - Lab Data Result diagrams: 12/30/19 09:04 12/30/19 09:04 <Toni Nuñez - Last Filed: 12/30/19 11:30> - Medical Decision Making 59-year-old female present for abdominal pain. Patient lab reviewed. Patient has evidence of urinary tract infection. Patient CT shows evidence of worsening colitis on CT there is no definite obstruction with other some narrowing. Patient's had no output in her colostomy. Patient will be admitted for IV antibiotics, surgical evaluation. (Wiliam Cuevas) - Lab Data Lab Results 12/30/19 12/30/19 12/30/19 Range/Units 09:04 09:04 09:04 WBC 10.8 H (3.8-10.6) k/uL RBC 5.04 (3.80-5.40) m/uL Hgb 14.0 (11.4-16.0) gm/dL Hct 44.3 (34.0-46.0) % MCV 87.9 (80.0-100.0) fL MCH 27.8 (25.0-35.0) pg MCHC 31.7 (31.0-37.0) g/dL RDW 15.0 (11.5-15.5) % Plt Count 598 H (150-450) k/uL Neutrophils % 63 % Lymphocytes % 27 % Monocytes % 7 % Eosinophils % 1 % Basophils % 1 % Neutrophils # 6.8 (1.3-7.7) k/uL Lymphocytes # 2.9 (1.0-4.8) k/uL Monocytes # 0.7 (0-1.0) k/uL Eosinophils # 0.1 (0-0.7) k/uL Basophils # 0.1 (0-0.2) k/uL Sodium 139 (137-145) mmol/L Potassium 4.0 (3.5-5.1) mmol/L Chloride 105 (98-107) mmol/L Carbon Dioxide 24 (22-30) mmol/L Anion Gap 10 mmol/L BUN 15 (7-17) mg/dL Creatinine 0.71 (0.52-1.04) mg/dL Est GFR (CKD-EPI)AfAm >90 (>60 ml/min/1.73 sqM) Est GFR (CKD-EPI)NonAf >90 (>60 ml/min/1.73 sqM) Glucose 132 H (74-99) mg/dL Plasma Lactic Acid Jacobo (0.7-2.0) mmol/L Calcium 9.9 (8.4-10.2) mg/dL Total Bilirubin 0.4 (0.2-1.3) mg/dL AST 24 (14-36) U/L ALT 24 (4-34) U/L Alkaline Phosphatase 64 (38-126) U/L Total Protein 7.1 (6.3-8.2) g/dL Albumin 4.6 (3.5-5.0) g/dL Amylase 49 (30-110) U/L Lipase 366 H (23-300) U/L Urine Color Yellow Urine Appearance Cloudy H (Clear) Urine pH 6.0 (5.0-8.0) Ur Specific [place] 1.020 (1.001-1.035) Urine Protein 1+ H (Negative) Urine Glucose (UA) Negative (Negative) Urine Ketones Negative (Negative) Urine Blood Negative (Negative) Urine Nitrite Negative (Negative) Urine Bilirubin Negative (Negative) Urine Urobilinogen <2.0 (<2.0) mg/dL Ur Leukocyte Esterase Large H (Negative) Urine RBC 4 (0-5) /hpf Urine WBC 33 H (0-5) /hpf Ur Squamous Epith Cells 10 H (0-4) /hpf Hyaline Casts 7 H (0-2) /lpf Urine Mucus Many H (None) /hpf 12/30/19 Range/Units 09:04 WBC (3.8-10.6) k/uL RBC (3.80-5.40) m/uL Hgb (11.4-16.0) gm/dL Hct (34.0-46.0) % MCV (80.0-100.0) fL MCH (25.0-35.0) pg MCHC (31.0-37.0) g/dL RDW (11.5-15.5) % Plt Count (150-450) k/uL Neutrophils % % Lymphocytes % % Monocytes % % Eosinophils % % Basophils % % Neutrophils # (1.3-7.7) k/uL Lymphocytes # (1.0-4.8) k/uL Monocytes # (0-1.0) k/uL Eosinophils # (0-0.7) k/uL Basophils # (0-0.2) k/uL Sodium (137-145) mmol/L Potassium (3.5-5.1) mmol/L Chloride (98-107) mmol/L Carbon Dioxide (22-30) mmol/L Anion Gap mmol/L BUN (7-17) mg/dL Creatinine (0.52-1.04) mg/dL Est GFR (CKD-EPI)AfAm (>60 ml/min/1.73 sqM) Est GFR (CKD-EPI)NonAf (>60 ml/min/1.73 sqM) Glucose (74-99) mg/dL Plasma Lactic Acid Jacobo 2.0 (0.7-2.0) mmol/L Calcium (8.4-10.2) mg/dL Total Bilirubin (0.2-1.3) mg/dL AST (14-36) U/L ALT (4-34) U/L Alkaline Phosphatase (38-126) U/L Total Protein (6.3-8.2) g/dL Albumin (3.5-5.0) g/dL Amylase (30-110) U/L Lipase (23-300) U/L Urine Color Urine Appearance (Clear) Urine pH (5.0-8.0) Ur Specific [place] (1.001-1.035) Urine Protein (Negative) Urine Glucose (UA) (Negative) Urine Ketones (Negative) Urine Blood (Negative) Urine Nitrite (Negative) Urine Bilirubin (Negative) Urine Urobilinogen (<2.0) mg/dL Ur Leukocyte Esterase (Negative) Urine RBC (0-5) /hpf Urine WBC (0-5) /hpf Ur Squamous Epith Cells (0-4) /hpf Hyaline Casts (0-2) /lpf Urine Mucus (None) /hpf Disposition <Wiliam Cuevas - Last Filed: 12/30/19 11:25> <Toni Nuñez - Last Filed: 12/30/19 11:30> Clinical Impression: Colitis, Nausea & vomiting, Abdominal pain Disposition: ADMITTED IP TO THIS [facility] Condition: Poor Referrals: Connor Alvarez MD [Primary Care Provider] - 1-2 days
[2019-12-30 09:50] LABS: Basophils # (A) 0.1 k/uL (0-0.2); Basophils % (A) 1 %; Eosinophils # (A) 0.1 k/uL (0-0.7); Eosinophils % (A) 1 %; HCT 44.3 % (34.0-46.0); Lymphocytes # (A) 2.9 k/uL (1.0-4.8); Lymphocytes % (A) 27 %; MCH 27.8 pg (25.0-35.0); MCHC 31.7 g/dL (31.0-37.0); MCV 87.9 fL (80.0-100.0); Mean Platelet Volume 6.5; Monocytes # (A) 0.7 k/uL (0-1.0); Monocytes % (A) 7 %; Neutrophils # (A) 6.8 k/uL (1.3-7.7); Neutrophils % (A) 63 %; Platelet Count 598 k/uL (150-450); RBC 5.04 m/uL (3.80-5.40); WBC 10.8 k/uL (3.8-10.6)
[2019-12-30 10:02] LABS: ALT 24 U/L (4-34); AST 24 U/L (14-36); African American GFR (CKD) >90 (>60 ml/min/1.73 sqM); Albumin 4.6 g/dL (3.5-5.0); Alkaline Phosphatase 64 U/L (38-126); Amylase 49 U/L (30-110); Anion Gap 10 mmol/L; Blood Urea Nitrogen 15 mg/dL (7-17); Calcium 9.9 mg/dL (8.4-10.2); Carbon Dioxide 24 mmol/L (22-30); Chloride 105 mmol/L (98-107); Glucose 132 mg/dL (74-99); Non-African American GFR(CKD) >90 (>60 ml/min/1.73 sqM); Sodium 139 mmol/L (137-145); Total Bilirubin 0.4 mg/dL (0.2-1.3); Total Protein 7.1 g/dL (6.3-8.2)
[2019-12-30 10:17] LABS: Appearance,Urine Cloudy (Clear); Bilirubin,Urine Negative (Negative); Blood,Urine Negative (Negative); Color,Urine Yellow; Glucose,Urine (UA) Negative (Negative); Hyaline Casts,Urine 7 /lpf (0-2); Ketones,Urine Negative (Negative); Leukocyte Esterase,Urine Large (Negative); Mucus,Urine Many /hpf; Nitrite,Urine Negative (Negative); Protein,Urine 1+ (Negative); RBC,Urine 4 /hpf (0-5); Squamous Epithelial Cell,Urine 10 /hpf (0-4); Urobilinogen,Urine <2.0 mg/dL (<2.0); WBC,Urine 33 /hpf (0-5)
[2019-12-30] MEDS ORDERED: cefTRIAXone IN SWFI 1,000 MG/10 ML SYRINGE IVP STA (10:22)
--- NOTE | 2019-12-30 11:02 | CT ---
EXAMINATION TYPE: CT abdomen pelvis w con DATE OF EXAM: 12/30/2019 COMPARISON: INDICATION: Abd pain DLP: 1185.2 mGycm, Automated exposure control for dose reduction was used. CONTRAST: 100 mL of Isovue 370. Study performed without Oral Contrast TECHNIQUE: Axial images were obtained from above the diaphragm to the pubic rami in the axial plane a t 5 mm thick sections. Reconstructed images are reviewed on the computer in the coronal plane. FINDINGS: Limited CT sections are obtained the lung bases. The lung bases are clear. CT ABDOMEN: Liver: There is mild fatty infiltration throughout the liver. Spleen: Normal Pancreas: Normal Adrenal glands: The adrenal glands are normal. Gallbladder: Normal Kidneys: No masses are evident. No hydronephrosis is present. Couple small cysts are within the kid neys. Nonobstructing renal stones are noted. Delayed images were obtained through the kidneys, which remain unremarkable. Aorta: Vascular calcification is within the aorta. Inferior vena cava: Normal. CT PELVIS: There is diffuse wall thickening with inflammatory change adjacent from the splenic flexur e to the ostomy. Correlate for colitis. Fecal debris is within the ascending colon region. Oral contrast extends to distal small bowel loops. Appendix: Normal as visualized. Urinary bladder: Normal. Genitourinary structures: Uterus is normal. Adnexal regions appear normal. There are some inflammato ry type changes within the pelvis were then anterior to the fundus of the uterus. This may be some re sidual postsurgical change. Osseous structures: No suspicious lytic or sclerotic lesions. Facet degenerative changes are in the l ower lumbar spine. IMPRESSIONS: 1. Worsening colitis of the descending colon to the ostomy. 2. Resolving pelvic postsurgical changes. 3. Nonobstructing renal stones for mild fatty dictation liver.
[2019-12-30] MEDS ORDERED: NALOXONE 0.4 MG/ML 1 ML VIAL IV PRN (11:26)
[2019-12-30] MEDS ORDERED: INFLUENZA VACCINE (6 MOS+) 60 MCG/0.5 ML SYRINGE IM ONE (12:11)
[2019-12-30 12:27] LABS: Glucose,Whole Blood 116 mg/dL (75-99)
[2019-12-30] MEDS ORDERED: traMADol 50 MG TAB PO PRN (12:37)
[2019-12-30] MEDS ORDERED: ALBUTEROL NEBULIZED 2.5 MG/3 ML INHALATION PRN (12:37)
[2019-12-30] MEDS ORDERED: ONDANSETRON ODT 4 MG TAB PO PRN (12:37)
[2019-12-30] MEDS: SODIUM CHLORIDE 0.9% 1,000 ML IV SCH (13:36)
[2019-12-30] MEDS: HYDROmorphone 0.5 MG/0.5 ML SYRINGE IVP PRN ×3 (13:37→21:33)
[2019-12-30] MEDS: HYDROCORTISONE 10 MG TAB PO SCH (13:38)
--- NOTE | 2019-12-30 13:57 | P.HPIM ---
History of Present Illness H&P Date: 12/30/19 Chief Complaint: Abdominal pain This is a 59-year-old female patient of Dr. Alvarez with past medical history of diabetes mellitus type 2, Curtis granulomatosis, gastroesophageal reflux disease, hypertension, history of sigmoid diverticulitis with perforation and peritonitis status post Dong procedure and colostomy placement followed by possible phlegmon formation at the ostomy site and underwent IV antibiotic treatment with meropenem. Bedtime she was discharged to [facility] and was subsequently discharged from [facility] on November 20. She has had follow-up in the office and was doing great following that. Patient has history of 3 days worth of really bad gas pains along with nausea. She had no output from her ostomy for the past 48 hours. Last evening, patient started vomiting and states she vomited for 4 hours straight. She tried to open the ostomy site with a Q-tip but was not successful. She continued to have abdominal pain that was worsening . She called on Sunday to set up an appointment with Dr. Alvarez but was unable to wait for the appointment which was scheduled for today and came into [facility] emergency center for evaluation. CAT scan of the abdomen and pelvis revealed worsening colitis of the descending colon to the ostomy. Resolving pelvic postsurgical changes. Nonobstructing renal stones, mild fatty liver. She was afebrile, heart rate 88, blood pressure 165/100, pulse ox 99% on room air. WBC 10.8, hemoglobin 14, platelet count 598. Electrolytes and renal function, liver function normal. Blood sugar 132. Lipase 366. Urinalysis cloudy, leukoesterase large, WBC 33, squamous cells 10. Patient was admitted to the [facility] floor and consult requested with Dr. Ontiveros. Consult added for Dr. Stone a patient started on meropenem. Patient is currently on clear liquid diet. Blood culture and urine culture in progress. Review of Systems Constitutional: Reports chronic pain, Reports fatigue, Reports malaise, Reports weakness, Denies anorexia Eyes: denies blurred vision, denies bulging eye, denies decreased vision Ears, nose, mouth and throat: Denies dysphagia, Denies sore throat Cardiovascular: Denies chest pain, Denies decreased exercise tolerance, Denies lightheadedness, Denies rapid heart beat, Denies shortness of breath, Denies syncope Respiratory: Denies congestion, Denies cough with sputum, Denies home oxygen, Denies sleep apnea, Denies snoring, Denies wheezing Gastrointestinal: Reports abdominal pain, Reports bloating, Reports change in bowel habits, denies hematochezia, Reports loss of appetite, Reports nausea, Denies heartburn, Denies hematemesis, Denies melena, reports vomiting Genitourinary: Reports nocturia, Denies dysuria Musculoskeletal: Denies myalgias Musculoskeletal: absent: ankle pain, ankle stiffness, ankle swelling, elbow pain, elbow stiffness, elbow swelling, foot pain, foot stiffness, foot swelling, hand pain, hand stiffness, hand swelling, hip pain, hip stiffness, hip swelling, knee pain, knee stiffness, knee swelling, shoulder pain, shoulder stiffness, shoulder swelling, wrist pain, wrist stiffness, wrist swelling Integumentary: Denies pruritus, Denies rash Neurological: Denies numbness, Denies weakness Psychiatric: Reports anxiety, Reports sadness/tearfulness Endocrine: Denies fatigue, Denies weight change Past Medical History Past Medical History: COPD, Diabetes Mellitus, Eye Disorder, GERD/Reflux, Hyperlipidemia, Hypertension, Myocardial Infarction (ND), Pneumonia, Renal Disease, Respiratory Disorder Additional Past Medical History / Comment(s): Pt recently admitted to [facility] on 11/04/19 with possible phlegmon formation at ostomy site essentiall ruled out. 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 Last Myocardial Infarction Date:: 2016 History of Any Multi-Drug Resistant Organisms: None Reported Date of last positivie culture/infection: 2015 MDRO Source:: Stool Past Surgical History: Bowel Resection, Section, Heart Catheterization, Orthopedic Surgery Additional Past Surgical History / Comment(s): 10/21/19 Hartmans procedure/colostomy, exploratory laparoscopies 3-4, right lung resection 2016, L humerus double compound fx repair, colonoscopy, hemorrhoidectomy, lithotripsy x 2. Past Anesthesia/Blood Transfusion Reactions: No Reported Reaction Additional Past Anesthesia/Blood Transfusion Reaction / Comment(s): Pt has received blood in past without reaction. Smoking Status: Former smoker Additional Past Alcohol Use History / Comment(s): Patient was a smoker one pack per day for 30 years and quit in July 2018. No alcohol use, no marijuana or street drug use. - Past Family History Mother Family Medical History: Coronary Artery Disease (CAD) Additional Family Medical History / Comment(s): Mother at age 78 with history of coronary artery disease status post multiple stents. Father Family Medical History: Myocardial Infarction (ND) Additional Family Medical History / Comment(s): Father at age 45 from myocardial infarction. Brother(s) Family Medical History: Hypertension Additional Family Medical History / Comment(s): Patient has 1 brother with hypertension and kidney stones. Sister(s) Family Medical History: No Reported History Additional Family Medical History / Comment(s): Patient has one sister with CHRONIC HYPERCOHDRIA AND GALLSTONES Daughter(s) Family Medical History: No Reported History Additional Family Medical History / Comment(s): Patient has 2 daughters with no major medical problems. Medications and Allergies Home Medications Medication Instructions Recorded Confirmed Type Pantoprazole Sodium [Protonix] 40 mg PO DAILY@0600 08/22/18 12/30/19 History Hydrocortisone 25 mg PO DAILY@0800 06/06/19 12/30/19 History Hydrocortisone [Cortef] 15 mg PO DAILY@1500 06/06/19 12/30/19 History Budesonide-Formot 160-4.5 Mcg 2 puff INHALATION RT-BID 06/09/19 12/30/19 History [Symbicort 160-4.5 Mcg Inhaler] Albuterol Sulfate [Ventolin HFA] 2 puff INHALATION RT-Q4H PRN 10/16/19 12/30/19 History DULoxetine HCL [Cymbalta] 20 mg PO DAILY@0800 10/16/19 12/30/19 History Latanoprost Ophth [Xalatan 0.005%] 1 drop BOTH EYES HS@2100 11/04/19 12/30/19 History Metoprolol Tartrate [Lopressor] 50 mg PO BID@0800,1700 11/04/19 12/30/19 History Potassium Chloride ER [K-Dur 20] 20 meq PO DAILY@1700 11/04/19 12/30/19 History amLODIPine [Norvasc] 5 mg PO DAILY@0800 11/04/19 12/30/19 History cycloSPORINE 0.05% OPHTH SOLN 1 drop BOTH EYES Q12HR 11/04/19 12/30/19 History [Restasis] Gabapentin [Neurontin] 300 mg PO BID 12/30/19 12/30/19 History Ibuprofen [Motrin] 600 mg PO Q8HR PRN 12/30/19 12/30/19 History Mirabegron [Myrbetriq] 50 mg PO DAILY 12/30/19 12/30/19 History Ondansetron Odt [Zofran Odt] 4 mg PO Q12HR PRN 12/30/19 12/30/19 History Simethicone 40 mg/0.6 ml Drops 80 mg PO AC-TID 12/30/19 12/30/19 History [Mylicon Drops] lisinopriL [Zestril] 20 mg PO DAILY 12/30/19 12/30/19 History traMADol HCl [Ultram] 50 mg PO BID PRN 12/30/19 12/30/19 History Allergies Allergy/AdvReac Type Severity Reaction Status Date / Time azathioprine [From Imuran] Allergy Vomiting Verified 12/30/19 09:43 codeine Allergy Nausea Verified 12/30/19 09:43 metronidazole [From Flagyl] Allergy Anaphylaxis Verified 12/30/19 09:43 methotrexate AdvReac Unknown Verified 12/30/19 09:43 Physical Exam Vitals: Vital Signs Temp Pulse Pulse Resp BP BP Pulse Ox 12/30/19 12:11 98.6 F 78 18 168/86 92 L 12/30/19 11:27 97.8 F 66 12 161/80 96 12/30/19 08:41 97.4 F L 88 18 165/100 99 Intake and Output 12/29/19 12/30/19 12/30/19 22:59 06:59 14:59 Other: Voiding Method Toilet Weight 77.111 kg Physical examination: HEENT: head is atraumatic normocephalic pupils were equal round reactive to light and accomodations, extra ocular muscle movement were intact, mucous membranes of the mouth are somewhat dry. Neck: supple no JVP. Chest: decrease breath sounds at the bases with few ronchi no expiratory wheezes, no chest wall tenderness or intercostal retraction. Heart: firs heart sound is depressed, second heart sound is normal, there is no gallop or murmur. Abdomen: distended, soft, there is colostomy bag left upper quadrant, moderate generalized tenderness bilaterally, depressed bowel sounds. Extremities: there is no edema or calf tenderness, DP +2 bilaterally. Neurologic examination: patient is awake , alert and oriented X 3 CN II-XII are grossly intact, muscle power 5/5 in bilateral upper and lower extremities, Deep tendon reflexes are normal. Results CBC & Chem 7: 12/30/19 09:04 12/30/19 09:04 Labs: Abnormal Lab Results - Last 24 Hours (Table) 12/30/19 12/30/19 12/30/19 Range/Units 09:04 09:04 09:04 WBC 10.8 H (3.8-10.6) k/uL Plt Count 598 H (150-450) k/uL Glucose 132 H (74-99) mg/dL Lipase 366 H (23-300) U/L Urine Appearance Cloudy H (Clear) Urine Protein 1+ H (Negative) Ur Leukocyte Esterase Large H (Negative) Urine WBC 33 H (0-5) /hpf Ur Squamous Epith Cells 10 H (0-4) /hpf Hyaline Casts 7 H (0-2) /lpf Urine Mucus Many H (None) /hpf Thrombosis Risk Factor Assmnt - DVT/VTE Prophylaxis DVT/VTE Prophylaxis: Pharmacologic Prophylaxis ordered - Choose All That Apply Each Factor Represents 1 point: Obesity (BMI >25) Other Risk Factors: Yes Each Risk Factor Represents 2 Points: Age 61-74 years Other congenital or acquired thrombophilia - If yes, enter type in comment: No Thrombosis Risk Factor Assessment Total Risk Factor Score: 3 Thrombosis Risk Factor Assessment Level: Moderate Risk Assessment and Plan Plan: 1. Suspected bowel obstruction secondary to stenotic ostomy site, possible colitis. Patient is currently on clear liquids only. Consult with Dr. Ontiveros. Meropenem started and consult with Dr. Stone. Blood culture is in progress. Continue IV fluids 75 mL per hour. Patient started on meropenem. 2. Status post Matos procedure with colostomy placement due to diverticulitis with perforation, and history of phlegmon at ostomy site. 3. Hyperglycemia secondary to steroids. NovoLog scale before meals and at bedtime. 4. COPD without exacerbation. Continue albuterol every 4 hours as needed, Symbicort twice daily. 5. Adrenal insufficiency disorder. we will continue with Cortef 25 mg po in AM and 15 mg in PM. 6. History of Chester granulomatosis. we will continue to monitor and she cerrato been off Retuxan. 7. GERD and GI prophylaxis. Protonix IV. 8. Hypertension and hypertensive cardiovascular disease. Continue Amlodipine 5 mg orally daily, Lisinopril 20 mg orally daily and Metoprolol 50 mg orally bid. 9. Recurrent depression. Continue Cymbalta 20 mg orally daily. 10. History of chronic tobacco use and dependence. patient quit in 2019. 11. DVT prophylaxis. we will start Heparin 5000 units SC Q 8 hours along with knee-high grant hose. Patient will be admitted to the hospital for a minimum of 2 nights stay. Discharge plan: To be determined Impression and plan of care have been directed as dictated by the signing physician. Lanette Mccarthy nurse practitioner acting as scribe for signing physician.
[2019-12-30] MEDS ORDERED: MEROPENEM 2 GM in SODIUM CHLORIDE 0.9% 100 ML IVPB ONE (14:00)
[2019-12-30] MEDS ORDERED: PIPERACILLIN-TAZOBACTAM 3.375 GM in SODIUM CHLORIDE 0.9% 100 ML IVPB SCH (16:00)
[2019-12-30 16:54] LABS: Glucose,Whole Blood 122 mg/dL (75-99)
[2019-12-30] MEDS ORDERED: POTASSIUM CHLORIDE ER 20 MEQ TAB.ER PO SCH (17:00)
[2019-12-30] MEDS: HEPARIN SODIUM,PORCINE 5,000 UNIT/ML 1 ML VIAL SQ SCH (17:01)
[2019-12-30] MEDS: METOPROLOL TARTRATE 50 MG TAB PO SCH (17:01)
[2019-12-30] MEDS: INSULIN ASPART (NovoLOG) 100 UNIT/ML VIAL SQ SCH ×2 (17:04→20:23)
[2019-12-30] MEDS ORDERED: SIMETHICONE 40 MG/0.6 ML DROPS 2,000 MG/30 ML BOTTLE PO SCH (17:30)
--- NOTE | 2019-12-30 18:02 | P.GSCN ---
History of Present Illness Consult date: 12/30/19 History of present illness: 59-year-old female presents to the emergency department with complaints of abdominal pain. She also complains of decreased output from her ostomy over the last 2 days. She is known to me secondary to having a emergent Matos's procedure secondary to perforated diverticulitis. 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 She has been followed as an outpatient by ostomy nurses to care for her ostomy. She states that she began having abdom inal pain 2 days ago that has worsened. She was concerned and came to the emergency primary. She denied any fevers, chills, chest pain or shortness of breath. She denied any nausea or vomiting episodes. Review of Systems All systems: negative Past Medical History Past Medical History: COPD, Diabetes Mellitus, Eye Disorder, GERD/Reflux, Hyperlipidemia, Hypertension, Myocardial Infarction ([place]), Pneumonia, Renal Dise ase, Respiratory Disorder Additional Past Medical History / Comment(s): Pt recently admitted to [facility] on 11/04/19 with possible phlegmon formation at ostomy site essentiall ruled out. 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 Last Myocardial Infarction Date:: 2016 History of Any Multi-Drug Resistant Organisms: None Reported Year Discovered:: 2014 MDRO Source:: Stool Past Surgical History: Bowel Resection, Section, Heart Catheterization, Orthopedic Surgery Additional Past Surgical History / Comment(s): 10/21/19 Hartmans procedure/colostomy, exploratory laparoscopies 3-4, right lung resection 2016, L humerus double compound fx repair, colonoscopy, hemorrhoidectomy, lithotripsy x 2. Past Anesthesia/Blood Transfusion Reactions: No Reported Reaction Additional Past Anesthesia/Blood Transfusion Reaction / Comm: Pt has received blood in past without reaction. Smoking Status: Former smoker Additional Past Alcohol Use History / Comment(s): Patient was a smoker one pack per day for 30 years and quit in July 2018. No alcohol use, no marijuana or street drug use. - Past Family History Mother Family Medical History: Coronary Artery Disease (CAD) Additional Family Medical History / Comment(s): Mother at age 78 with history of coronary artery disease status post multiple stents. Father Family Medical History: Myocardial Infarction ([place]) Additional Family Medical History / Comment(s): Father at age 45 from myocardial infarction. Brother(s) Family Medical History: Hypertension Additional Family Medical History / Comment(s): Patient has 1 brother with hypertension and kidney stones. Sister(s) Family Medical History: No Reported History Additional Family Medical History / Comment(s): Patient has one sister with CHRONIC HYPERCOHDRIA AND GALLSTONES Daughter(s) Family Medical History: No Reported History Additional Family Medical History / Comment(s): Patient has 2 daughters with no major medical problems. Medications and Allergies Home Medications Medication Instructions Recorded Confirmed Type Pantoprazole Sodium [Protonix] 40 mg PO DAILY@0600 08/22/18 12/30/19 History Hydrocortisone 25 mg PO DAILY@0800 06/06/19 12/30/19 History Hydrocortisone [Cortef] 15 mg PO DAILY@1500 06/06/19 12/30/19 History Budesonide-Formot 160-4.5 Mcg 2 puff INHALATION RT-BID 06/09/19 12/30/19 History [Symbicort 160-4.5 Mcg Inhaler] Albuterol Sulfate [Ventolin HFA] 2 puff INHALATION RT-Q4H PRN 10/16/19 12/30/19 History DULoxetine HCL [Cymbalta] 20 mg PO DAILY@0800 10/16/19 12/30/19 History Latanoprost Ophth [Xalatan 0.005%] 1 drop BOTH EYES HS@2100 11/04/19 12/30/19 History Metoprolol Tartrate [Lopressor] 50 mg PO BID@0800,1700 11/04/19 12/30/19 History Potassium Chloride ER [K-Dur 20] 20 meq PO DAILY@1700 11/04/19 12/30/19 History amLODIPine [Norvasc] 5 mg PO DAILY@0800 11/04/19 12/30/19 History cycloSPORINE 0.05% OPHTH SOLN 1 drop BOTH EYES Q12HR 11/04/19 12/30/19 History [Restasis] Gabapentin [Neurontin] 300 mg PO BID 12/30/19 12/30/19 History Ibuprofen [Motrin] 600 mg PO Q8HR PRN 12/30/19 12/30/19 History Mirabegron [Myrbetriq] 50 mg PO DAILY 12/30/19 12/30/19 History Ondansetron Odt [Zofran Odt] 4 mg PO Q12HR PRN 12/30/19 12/30/19 History Simethicone 40 mg/0.6 ml Drops 80 mg PO AC-TID 12/30/19 12/30/19 History [Mylicon Drops] lisinopriL [Zestril] 20 mg PO DAILY 12/30/19 12/30/19 History traMADol HCl [Ultram] 50 mg PO BID PRN 12/30/19 12/30/19 History Allergies Allergy/AdvReac Type Severity Reaction Status Date / Time azathioprine [From Imuran] Allergy Vomiting Verified 12/30/19 09:43 codeine Allergy Nausea Verified 12/30/19 09:43 metronidazole [From Flagyl] Allergy Anaphylaxis Verified 12/30/19 09:43 methotrexate AdvReac Unknown Verified 12/30/19 09:43 Surgical - Exam Osteopathic Statement: *. No significant issues noted on an osteopathic structural exam other than those noted in the History and Physical/Consult. Vital Signs Temp Pulse Resp BP Pulse Ox 97.4 F L 88 18 165/100 99 12/30/19 08:41 12/30/19 08:41 12/30/19 08:41 12/30/19 08:41 12/30/19 08:41 - General well developed, well nourished, no distress - Eyes PERRL, normal ocular movement - Neck trachea midline - Respiratory normal respiratory effort - Abdomen Soft, nontender, mildly distended, no rebound, no guarding, ostomy site is quite stenosed. - Psychiatric oriented to time, oriented to person, oriented to place Results - Labs 12/30/19 09:04 12/30/19 09:04 Abnormal Lab Results - Last 24 Hours (Table) 12/30/19 12/30/19 12/30/19 Range/Units 09:04 09:04 09:04 WBC 10.8 H (3.8-10.6) k/uL Plt Count 598 H (150-450) k/uL Glucose 132 H (74-99) mg/dL POC Glucose (mg/dL) (75-99) mg/dL Lipase 366 H (23-300) U/L Urine Appearance Cloudy H (Clear) Urine Protein 1+ H (Negative) Ur Leukocyte Esterase Large H (Negative) Urine WBC 33 H (0-5) /hpf Ur Squamous Epith Cells 10 H (0-4) /hpf Hyaline Casts 7 H (0-2) /lpf Urine Mucus Many H (None) /hpf 12/30/19 12/30/19 Range/Units 12:25 16:53 WBC (3.8-10.6) k/uL Plt Count (150-450) k/uL Glucose (74-99) mg/dL POC Glucose (mg/dL) 116 H 122 H (75-99) mg/dL Lipase (23-300) U/L Urine Appearance (Clear) Urine Protein (Negative) Ur Leukocyte Esterase (Negative) Urine WBC (0-5) /hpf Ur Squamous Epith Cells (0-4) /hpf Hyaline Casts (0-2) /lpf Urine Mucus (None) /hpf Microbiology - Last 24 Hours (Table) 12/30/19 09:04 Urine Culture - Preliminary Urine,Voided Diabetes panel 12/30/19 Range/Units 09:04 Sodium 139 (137-145) mmol/L Potassium 4.0 (3.5-5.1) mmol/L Chloride 105 (98-107) mmol/L Carbon Dioxide 24 (22-30) mmol/L BUN 15 (7-17) mg/dL Creatinine 0.71 (0.52-1.04) mg/dL Glucose 132 H (74-99) mg/dL Calcium 9.9 (8.4-10.2) mg/dL AST 24 (14-36) U/L ALT 24 (4-34) U/L Alkaline Phosphatase 64 (38-126) U/L Total Protein 7.1 (6.3-8.2) g/dL Albumin 4.6 (3.5-5.0) g/dL Calcium panel 12/30/19 Range/Units 09:04 Calcium 9.9 (8.4-10.2) mg/dL Albumin 4.6 (3.5-5.0) g/dL Pituitary panel 12/30/19 Range/Units 09:04 Sodium 139 (137-145) mmol/L Potassium 4.0 (3.5-5.1) mmol/L Chloride 105 (98-107) mmol/L Carbon Dioxide 24 (22-30) mmol/L BUN 15 (7-17) mg/dL Creatinine 0.71 (0.52-1.04) mg/dL Glucose 132 H (74-99) mg/dL Calcium 9.9 (8.4-10.2) mg/dL Adrenal panel 12/30/19 Range/Units 09:04 Sodium 139 (137-145) mmol/L Potassium 4.0 (3.5-5.1) mmol/L Chloride 105 (98-107) mmol/L Carbon Dioxide 24 (22-30) mmol/L BUN 15 (7-17) mg/dL Creatinine 0.71 (0.52-1.04) mg/dL Glucose 132 H (74-99) mg/dL Calcium 9.9 (8.4-10.2) mg/dL Total Bilirubin 0.4 (0.2-1.3) mg/dL AST 24 (14-36) U/L ALT 24 (4-34) U/L Alkaline Phosphatase 64 (38-126) U/L Total Protein 7.1 (6.3-8.2) g/dL Albumin 4.6 (3.5-5.0) g/dL Assessment and Plan (1) Complication of ostomy Narrative/Plan: 59-year-old female with stenotic ostomy site. I discussed the case in depth with the patient. At this point, due to the stenotic ostomy, patient will require surgical correction. It has been approximately 2 months since her initial procedure and there are multiple options to surgical management of this stenotic ostomy. Due to her history of Sudha's granulomatosis, chronic steroid use due to this medical condition along with Rituxan use, patient is noted to be a complicated case in the perioperative timeframe. I discussed the case in depth with colorectal surgery at [facility]. Plan is for surgical exploration with possibility of colostomy reversal with a diverting ileostomy versus colostomy repair. Based on her comorbidities, decision is made to transfer the patient to [facility] as a tertiary care center for possible surgical ICU needs postoperatively. This was also discussed with the patient's primary care physician, Dr. Alvarez. Patient is agreeable to this transfer. Current Visit: No Status: Acute Code(s): DWP3427 - SNOMED Code(s): 991524392
--- NOTE | 2019-12-30 18:06 | P.DS ---
Providers Date of admission: 12/30/19 11:29 Attending physician: Connor Alvarez Consults: 12/30/19 11:26 Consult Physician Urgent Consulting Provider: Michelle Ontiveros Consult Reason/Comments: Colitis, no output colostomy Do you want consulting provider notified?: Yes 12/30/19 12:54 Consult Physician Routine Consulting Provider: Phillip Stone Consult Reason/Comments: recent phlegmon Do you want consulting provider notified?: Yes Primary care physician: Connor Alvarez - Discharge Diagnosis(es) (1) Complication of ostomy Current Visit: No Status: Acute Hospital Course: 59-year-old female admitted secondary to abdominal pain and low output from ostomy. On exam, patient is found to have stenotic ostomy that will require surgical intervention. Due to her chronic medical comorbidities with Curtis's granulomatosis, chronic steroid use and Rituxan use, patient will require likely surgical ICU management postoperatively after surgical management. Her case was discussed in depth with colorectal specialist at [facility] and he has accepted the transfer with plan for surgical intervention. Patient Condition at Discharge: Fair Plan - Discharge Summary Discharge Rx Participant: No New Discharge Prescriptions: No Action Pantoprazole Sodium [Protonix] 40 mg PO DAILY@0600 Hydrocortisone 25 mg PO DAILY@0800 Hydrocortisone [Cortef] 15 mg PO DAILY@1500 Budesonide-Formot 160-4.5 Mcg [Symbicort 160-4.5 Mcg Inhaler] 2 puff INHALATION RT-BID DULoxetine HCL [Cymbalta] 20 mg PO DAILY@0800 Albuterol Sulfate [Ventolin HFA] 2 puff INHALATION RT-Q4H PRN PRN Reason: Shortness Of Breath cycloSPORINE 0.05% OPHTH SOLN [Restasis] 1 drop BOTH EYES Q12HR amLODIPine [Norvasc] 5 mg PO DAILY@0800 Potassium Chloride ER [K-Dur 20] 20 meq PO DAILY@1700 Metoprolol Tartrate [Lopressor] 50 mg PO BID@0800,1700 Latanoprost Ophth [Xalatan 0.005%] 1 drop BOTH EYES HS@2100 Gabapentin [Neurontin] 300 mg PO BID Ibuprofen [Motrin] 600 mg PO Q8HR PRN PRN Reason: Pain lisinopriL [Zestril] 20 mg PO DAILY Mirabegron [Myrbetriq] 50 mg PO DAILY Ondansetron Odt [Zofran Odt] 4 mg PO Q12HR PRN PRN Reason: Nausea Simethicone 40 mg/0.6 ml Drops [Mylicon Drops] 80 mg PO AC-TID traMADol HCl [Ultram] 50 mg PO BID PRN PRN Reason: Pain Discharge Medication List Pantoprazole Sodium [Protonix] 40 mg PO DAILY@0600 08/22/18 [History] Hydrocortisone 25 mg PO DAILY@0800 06/06/19 [History] Hydrocortisone [Cortef] 15 mg PO DAILY@1500 06/06/19 [History] Budesonide-Formot 160-4.5 Mcg [Symbicort 160-4.5 Mcg Inhaler] 2 puff INHALATION RT-BID 06/09/19 [History] Albuterol Sulfate [Ventolin HFA] 2 puff INHALATION RT-Q4H PRN 10/16/19 [History] DULoxetine HCL [Cymbalta] 20 mg PO DAILY@0800 10/16/19 [History] Latanoprost Ophth [Xalatan 0.005%] 1 drop BOTH EYES HS@2100 11/04/19 [History] Metoprolol Tartrate [Lopressor] 50 mg PO BID@0800,1700 11/04/19 [History] Potassium Chloride ER [K-Dur 20] 20 meq PO DAILY@1700 11/04/19 [History] amLODIPine [Norvasc] 5 mg PO DAILY@0800 11/04/19 [History] cycloSPORINE 0.05% OPHTH SOLN [Restasis] 1 drop BOTH EYES Q12HR 11/04/19 [History] Gabapentin [Neurontin] 300 mg PO BID 12/30/19 [History] Ibuprofen [Motrin] 600 mg PO Q8HR PRN 12/30/19 [History] Mirabegron [Myrbetriq] 50 mg PO DAILY 12/30/19 [History] Ondansetron Odt [Zofran Odt] 4 mg PO Q12HR PRN 12/30/19 [History] Simethicone 40 mg/0.6 ml Drops [Mylicon Drops] 80 mg PO AC-TID 12/30/19 [History] lisinopriL [Zestril] 20 mg PO DAILY 12/30/19 [History] traMADol HCl [Ultram] 50 mg PO BID PRN 12/30/19 [History] Follow up Appointment(s)/Referral(s): Connor Alvarez MD [Primary Care Provider] - 1-2 days Discharge Disposition: DC/[facility] INTERMEDIATE CARE FAC
[2019-12-30 20:23] LABS: Glucose,Whole Blood 112 mg/dL (75-99)
[2019-12-30] MEDS: SYMBICORT 160-4.5 MCG INHALER INHALATION SCH (20:47)
[2019-12-30] MEDS: LATANOPROST 0.005% OPHTH DROPS 2.5 ML BTL BOTH EYES SCH (21:32)
[2019-12-30] MEDS: ONDANSETRON 4 MG/2 ML VIAL IVP PRN (21:32)
[2019-12-30] MEDS: GABAPENTIN 300 MG CAP PO SCH (21:32)
[2019-12-30] MEDS: cycloSPORINE 0.05% OPHTH 0.4 ML DROPERETTE BOTH EYES SCH (21:33)
[2019-12-30] MEDS ORDERED: MEROPENEM 2 GM in SODIUM CHLORIDE 0.9% 100 ML IVPB SCH (22:00)
[2019-12-30] MEDS: MEROPENEM 1 GM in SODIUM CHLORIDE 0.9% 100 ML IVPB SCH (22:04)
[2019-12-31] MEDS: HEPARIN SODIUM,PORCINE 5,000 UNIT/ML 1 ML VIAL SQ SCH ×3 (01:03→17:02)
[2019-12-31] MEDS: SODIUM CHLORIDE 0.9% 1,000 ML IV SCH ×2 (01:04→13:51)
[2019-12-31] MEDS: MEROPENEM 1 GM in SODIUM CHLORIDE 0.9% 100 ML IVPB SCH ×2 (05:25→13:51)
[2019-12-31] MEDS ORDERED: PANTOPRAZOLE 40 MG TABLET PO SCH (06:00)
[2019-12-31 07:24] LABS: Glucose,Whole Blood 105 mg/dL (75-99)
[2019-12-31] MEDS ORDERED: DULoxetine HCL 20 MG CAPSULE.DR PO SCH (08:00)
[2019-12-31] MEDS ORDERED: HYDROCORTISONE 10 MG TAB PO SCH (08:00)
[2019-12-31] MEDS ORDERED: amLODIPine 5 MG TAB PO SCH (08:00)
[2019-12-31] MEDS: SYMBICORT 160-4.5 MCG INHALER INHALATION SCH ×2 (08:07→19:34)
[2019-12-31] MEDS: INSULIN ASPART (NovoLOG) 100 UNIT/ML VIAL SQ SCH ×3 (08:56→17:02)
[2019-12-31] MEDS: METOPROLOL TARTRATE 50 MG TAB PO SCH ×2 (08:59→17:01)
[2019-12-31] MEDS: GABAPENTIN 300 MG CAP PO SCH ×2 (08:59→20:31)
[2019-12-31] MEDS ORDERED: lisinopriL 20 MG TAB PO SCH (09:00)
[2019-12-31] MEDS ORDERED: PANTOPRAZOLE 40 MG/10 ML VIAL IVP SCH (09:00)
[2019-12-31] MEDS: cycloSPORINE 0.05% OPHTH 0.4 ML DROPERETTE BOTH EYES SCH ×2 (09:00→20:37)
[2019-12-31] MEDS: ONDANSETRON 4 MG/2 ML VIAL IVP PRN (09:41)
[2019-12-31] MEDS: HYDROmorphone 0.5 MG/0.5 ML SYRINGE IVP PRN ×4 (09:42→20:30)
[2019-12-31 11:45] LABS: Glucose,Whole Blood 110 mg/dL (75-99)
--- NOTE | 2019-12-31 12:06 | PN ---
PROGRESS NOTE DATE OF SERVICE: 12/31/2019 REASON FOR FOLLOWUP: Colitis. INTERVAL HISTORY: The patient is currently afebrile. Patient's abdominal pain is currently controlled. However, the patient did mention she did have pain after she tried to eat this morning. No chest pain, shortness of breath or cough. Patient possibly getting transferred to [facility] for surgical intervention. PHYSICAL EXAMINATION: Her blood pressure 145/79 with a pulse of 73, temperature 98.8. She is 92% on room air. General description is a middle-aged female, lying in bed in no distress. RESPIRATORY SYSTEM: Unlabored breathing, clear to auscultation anteriorly. HEART: S1, S2. Regular rate and rhythm. ABDOMEN: Soft no tenderness. LABS: No new labs have been obtained today. DIAGNOSTIC IMPRESSION AND PLAN: Patient with admitted to the hospital with vomiting with CT did show evidence of colitis and possible stomal stenosis with the patient being transferred to tertiary care with symptoms responding to meropenem to continue the patient evaluated by ID Service at that facility. Continue supportive care. MMODL / IJN: [id number] /
--- NOTE | 2019-12-31 12:16 | P.CONS ---
History of Present Illness - Reason for Consult Consult date: 12/30/19 colitis--recent phelgem Requesting physician: Connor Alvarez - Chief Complaint abd pain and vomiting x 2 days - History of Present Illness Patient is a 59-year female with a past medical history significant for Sudha's granulomatosis recent admission to the hospital with perforated sigmoid diverticulitis and second peritonitis for the patient is status post laparotomy and diverting colostomy patient abdominal culture positive for Citrobacter Klebsiella and anaerobic gram-negative bacilli initially treated with Zosyn subsequently readmission to the hospital has anybody was switched to meropenem and the patient has completed her antibiotic therapy more than 6 weeks ago, patient was doing well until yesterday morning when the patient presented to hospital with abdominal pain of 2 days duration no output from her colostomy and vomiting patient describes her abdominal pain to be colicky and sharp with intensity almost 7-8 out of 10 no radiation with associated nausea and vomiting patient denies high-grade fever or chills with this symptom the patient was evaluated by the ER physician on arrival to the ER the patient was afebrile patient did have a white count of 10.8 liver enzymes are normal urine was mildly positive patient did have CT of abdominal pelvis with tissues worsening colitis of the descending colon to the ostomy resolving pelvic postsurgical changes patient has been admitted hospital she was started on meropenem infectious disease was consulted for further management of antibiotic therapy Review of Systems Positive point has been mentioned in HPI, rest of the systems are negative Past Medical History Past Medical History: COPD, Diabetes Mellitus, Eye Disorder, GERD/Reflux, Hyperlipidemia, Hypertension, Myocardial Infarction ([place]), Pneumonia, Renal Disease, Respiratory Disorder Additional Past Medical History / Comment(s): Pt recently admitted to [facility] on 11/04/19 with possible phlegmon formation at ostomy site essentiall ruled out. 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 Last Myocardial Infarction Date:: 2016 History of Any Multi-Drug Resistant Organisms: None Reported Year Discovered:: 2014 MDRO Source:: Stool Past Surgical History: Bowel Resection, Section, Heart Catheterization, Orthopedic Surgery Additional Past Surgical History / Comment(s): 10/21/19 Hartmans procedure/colostomy, exploratory laparoscopies 3-4, right lung resection 2016, L humerus double compound fx repair, colonoscopy, hemorrhoidectomy, lithotripsy x 2. Past Anesthesia/Blood Transfusion Reactions: No Reported Reaction Additional Past Anesthesia/Blood Transfusion Reaction / Comm: Pt has received blood in past without reaction. Smoking Status: Former smoker Additional Past Alcohol Use History / Comment(s): Patient was a smoker one pack per day for 30 years and quit in July 2018. No alcohol use, no marijuana or stre et drug use. - Past Family History Mother Family Medical History: Coronary Artery Disease (CAD) Additional Family Medical History / Comment(s): Mother at age 78 with history of coronary artery disease status post multiple stents. Father Family Medical History: Myocardial Infarction ([place]) Additional Family Medical History / Comment(s): Father at age 45 from myocardial infarction. Brother(s) Family Medical History: Hypertension Additional Family Medical History / Comment(s): Patient has 1 brother with hypertension and kidney stones. Sister(s) Family Medical History: No Reported History Additional Family Medical History / Comment(s): Patient has one sister with CHRONIC HYPERCOHDRIA AND GALLSTONES Daughter(s) Family Medical History: No Reported History Additional Family Medical History / Comment(s): Patient has 2 daughters with no major medical problems. Medications and Allergies Home Medications Medication Instructions Recorded Confirmed Type Pantoprazole Sodium [Protonix] 40 mg PO DAILY@0600 08/22/18 12/30/19 History Hydrocortisone 25 mg PO DAILY@0800 06/06/19 12/30/19 History Hydrocortisone [Cortef] 15 mg PO DAILY@1500 06/06/19 12/30/19 History Budesonide-Formot 160-4.5 Mcg 2 puff INHALATION RT-BID 06/09/19 12/30/19 History [Symbicort 160-4.5 Mcg Inhaler] Albuterol Sulfate [Ventolin HFA] 2 puff INHALATION RT-Q4H PRN 10/16/19 12/30/19 History DULoxetine HCL [Cymbalta] 20 mg PO DAILY@0800 10/16/19 12/30/19 History Latanoprost Ophth [Xalatan 0.005%] 1 drop BOTH EYES HS@2100 11/04/19 12/30/19 History Metoprolol Tartrate [Lopressor] 50 mg PO BID@0800,1700 11/04/19 12/30/19 History Potassium Chloride ER [K-Dur 20] 20 meq PO DAILY@1700 11/04/19 12/30/19 History amLODIPine [Norvasc] 5 mg PO DAILY@0800 11/04/19 12/30/19 History cycloSPORINE 0.05% OPHTH SOLN 1 drop BOTH EYES Q12HR 11/04/19 12/30/19 History [Restasis] Gabapentin [Neurontin] 300 mg PO BID 12/30/19 12/30/19 History Ibuprofen [Motrin] 600 mg PO Q8HR PRN 12/30/19 12/30/19 History Mirabegron [Myrbetriq] 50 mg PO DAILY 12/30/19 12/30/19 History Ondansetron Odt [Zofran Odt] 4 mg PO Q12HR PRN 12/30/19 12/30/19 History Simethicone 40 mg/0.6 ml Drops 80 mg PO AC-TID 12/30/19 12/30/19 History [Mylicon Drops] lisinopriL [Zestril] 20 mg PO DAILY 12/30/19 12/30/19 History traMADol HCl [Ultram] 50 mg PO BID PRN 12/30/19 12/30/19 History Allergies Allergy/AdvReac Type Severity Reaction Status Date / Time azathioprine [From Imuran] Allergy Vomiting Verified 12/30/19 09:43 codeine Allergy Nausea Verified 12/30/19 09:43 metronidazole [From Flagyl] Allergy Anaphylaxis Verified 12/30/19 09:43 methotrexate AdvReac Unknown Verified 12/30/19 09:43 Physical Exam Vitals: Vital Signs Temp Pulse Pulse Resp BP BP Pulse Ox 12/30/19 12:11 98.6 F 78 18 168/86 92 L 12/30/19 11:27 97.8 F 66 12 161/80 96 12/30/19 08:41 97.4 F L 88 18 165/100 99 Intake and Output 12/29/19 12/30/19 12/30/19 22:59 06:59 14:59 Other: Voiding Method Toilet # Voids 1 Weight 77.111 kg GENERAL DESCRIPTION: Middle-aged female lying in bed, no distress. No tachypnea or accessory muscle of respiration use. HEENT: Shows Pallor , no scleral icterus. Oral mucous membrane is dry. No pharyngeal erythema or thrush NECK: Trachea central, no thyromegaly. LUNGS: Unlabored breathing. Clear to auscultation anteriorly. No wheeze or crackle. HEART: S1, S2, regular rate and rhythm. No loud murmur ABDOMEN: Soft, mild distention and tenderness , guarding or rigidity, no organomegaly EXTREMITIES: No edema of feet. SKIN: No rash, no masses palpable. NEUROLOGICAL: The patient is awake, alert, oriented x3, mood and affect normal. Results CBC & Chem 7: 12/30/19 09:04 12/30/19 09:04 Labs: Abnormal Lab Results - Last 24 Hours (Table) 12/30/19 12/30/19 12/30/19 Range/Units 09:04 09:04 09:04 WBC 10.8 H (3.8-10.6) k/uL Plt Count 598 H (150-450) k/uL Glucose 132 H (74-99) mg/dL POC Glucose (mg/dL) (75-99) mg/dL Lipase 366 H (23-300) U/L Urine Appearance Cloudy H (Clear) Urine Protein 1+ H (Negative) Ur Leukocyte Esterase Large H (Negative) Urine WBC 33 H (0-5) /hpf Ur Squamous Epith Cells 10 H (0-4) /hpf Hyaline Casts 7 H (0-2) /lpf Urine Mucus Many H (None) /hpf 12/30/19 Range/Units 12:25 WBC (3.8-10.6) k/uL Plt Count (150-450) k/uL Glucose (74-99) mg/dL POC Glucose (mg/dL) 116 H (75-99) mg/dL Lipase (23-300) U/L Urine Appearance (Clear) Urine Protein (Negative) Ur Leukocyte Esterase (Negative) Urine WBC (0-5) /hpf Ur Squamous Epith Cells (0-4) /hpf Hyaline Casts (0-2) /lpf Urine Mucus (None) /hpf Microbiology - Last 24 Hours (Table) 12/30/19 09:04 Urine Culture - Preliminary Urine,Voided Assessment and Plan Assessment: patient presented to hospital with abdominal pain and vomiting along with no output from her colostomy with a CT shows evidence of colitis and concern for possible ostomy closure, in view of the patient recent infection with resistant bacteria will need to cover for enteric gram-negative both aerobes anaerobes for this episode of colitis (1) Colitis Current Visit: Yes Status: Acute Code(s): K52.9 - NONINFECTIVE G ASTROENTERITIS AND COLITIS, UNSPECIFIED SNOMED Code(s): 52636256 Plan: 1-meropenem dose to be cut back to 1 g every 8 hour 2-gentle IV fluid We will follow on clinical condition and cultures to further adjust medication if needed Thank you for this consultation will follow this patient along with you Time with Patient: Greater than 30
--- NOTE | 2019-12-31 15:55 | P.PN ---
Subjective Progress Note Date: 12/31/19 This is a 59-year-old female patient of Dr. Alvarez with past medical history of diabetes mellitus type 2, Curtis granulomatosis, gastroesophageal reflux disease, hypertension, history of sigmoid diverticulitis with perforation and peritonitis status post Dong procedure and colostomy placement followed by possible phlegmon formation at the ostomy site and underwent IV antibiotic treatment with meropenem. Bedtime she was discharged to [facility] and was subsequently discharged from [facility] on November 20. She has had follow-up in the office and was doing great following that. Patient has history of 3 days worth of really bad gas pains along with nausea. She had no output from her ostomy for the past 48 hours. Last evening, patient started vomiting and states she vomited for 4 hours straight. She tried to open the ostomy site with a Q-tip but was not successful. She continued to have abdominal pain that was worsening. She called on Sunday to set up an appointment with Dr. Alvarez but was unable to wait for the appointment which was scheduled for today and came into [facility] emergency center for evaluation. CAT scan of the abdomen and pelvis revealed worsening colitis of the descending colon to the ostomy. Resolving pelvic postsurgical changes. Nonobstructing renal stones, mild fatty liver. She was afebrile, heart rate 88, blood pressure 165/100, pul se ox 99% on room air. WBC 10.8, hemoglobin 14, platelet count 598. Electrolytes and renal function, liver function normal. Blood sugar 132. Lipase 366. Urinalysis cloudy, leukoesterase large, WBC 33, squamous cells 10. Patient was admitted to the [facility] floor and consult requested with Dr. Ontiveros. Consult added for Dr. Stone a patient started on meropenem. Patient is currently on clear liquid diet. Blood culture and urine culture in progress. 12/30: Patient was seen yesterday by Dr. Ontiveros and he has planned to transfer the patient to [facility]. Patient was found to have stenotic ostomy that will require surgical intervention. Due to her chronic medical comorbidities wi th Curtis's granulomatosis, chronic steroid use and Rituxan use, patient will require likely surgical ICU management postoperatively after surgical management. Her case was discussed in depth with colorectal specialist at [facility] and patient was accepted therefore transfer however she is waiting for a bed and authorization. COVID19 testing is negative. Patient woke up this morning without pain. She states she is able to sleep all night. She ate broth this morning and then started having cramping gas-like abdominal pain. She feels like antibiotics are helping her symptoms. In general she is feeling a little bit better from yesterday. She's had no nausea or vomiting. Her o stomy has had minimal output of brown soft consistency. She is afebrile, heart rate 65, blood pressure 146/79 and pulse ox 95% on room air. Urine culture is showing group D enterococcus. Plan is for patient to be transferred once all arrangements are completed. Review of Systems Constitutional: Reports chronic pain, Reports fatigue, Reports malaise, Reports weakness, Denies anorexia Eyes: denies blurred vision, denies bulging eye, denies decreased vision Ears, nose, mouth and throat: Denies dysphagia, Denies sore throat Cardiovascular: Denies chest pain, Denies decreased exercise tolerance, Denies lightheadedness, Denies rapid heart beat, Denies shortness of breath, Denies syncope Respiratory: Denies congestion, Denies cough with sputum, Denies home oxygen, Denies sleep apnea, Denies snoring, Denies wheezing Gastrointestinal: Reports abdominal pain-improved, Reports bloating, Reports change in bowel habits, denies hematochezia, Reports loss of appetite, improved nausea, Denies heartburn, Denies hematemesis, Denies melena, reports vomiting- improved Genitourinary: Reports nocturia, Denies dysuria Musculoskeletal: Denies myalgias Musculoskeletal: absent: ankle pain, ankle stiffness, ankle swelling, elbow pain, elbow stiffness, elbow swelling, foot pain, foot stiffness, foot swelling, hand pain, hand stiffness, hand swelling, hip pain, hip stiffness, hip swelling, knee pain, knee stiffness, knee swelling, shoulder pain, shoulder stiffness, shoulder swelling, wrist pain, wrist stiffness, wrist swelling Integumentary: Denies pruritus, Denies rash Neurological: Denies numbness, Denies weakness Psychiatric: Reports anxiety, Reports sadness/tearfulness Endocrine: Denies fatigue, Denies weight change Objective - Vital Signs Vital signs: Vital Signs Temp 98.5 F 12/31/19 12:29 Pulse 65 12/31/19 12:29 Resp 15 10/07/20 12:29 BP 146/79 12/31/19 12:29 Pulse Ox 95 12/31/19 12:29 Intake & Output 12/30/19 12/31/19 12/31/19 18:59 06:59 18:59 Intake Total 950 700 Balance 950 700 Weight 77.111 kg Intake: Intake, IV Titration 950 Amount Meropenem 1 gm In Sodium 200 Chloride 0.9% 100 ml @ 33 .3 mls/hr IVPB Q8H MICHAEL Rx #:[id number] Sodium Chloride 0.9% 1, 750 000 ml @ 75 mls/hr IV . [id number] MICHAEL Rx#:[id number] Oral 700 Other: Voiding Method Toilet Toilet Toilet # Voids 1 1 2 - Exam Physical examination: HEENT: head is atraumatic normocephalic pupils were equal round reactive to light and accomodations, extra ocular muscle movement were intact, mucous membranes of the mouth are somewhat dry. Neck: supple no JVP. Chest: decrease breath sounds at the bases with few ronchi no expiratory wheezes, no chest wall tenderness or intercostal retraction. Heart: firs heart sound is depressed, second heart sound is normal, there is no gallop or murmur. Abdomen: distended, soft, there is colostomy bag left upper quadrant with small amount of brown stool, moderate generalized tenderness bilaterally, depressed bowel sounds. Extremities: there is no edema or calf tenderness, DP +2 bilaterally. Neurologic examination: patient is awake , alert and oriented X 3 CN II-XII are grossly intact, muscle power 5/5 in bilateral upper and lower extremities, Deep tendon reflexes are normal. - Labs CBC & Chem 7: 12/30/19 09:04 12/30/19 09:04 Labs: Abnormal Lab Results - Last 24 Hours (Table) 12/30/19 12/30/19 12/31/19 Range/Units 16:53 20:21 07:23 POC Glucose (mg/dL) 122 H 112 H 105 H (75-99) mg/dL 12/31/19 Range/Units 11:43 POC Glucose (mg/dL) 110 H (75-99) mg/dL Microbiology - Last 24 Hours (Table) 12/30/19 09:04 Urine Culture - Preliminary Urine,Voided Group D Enterococcus 12/30/19 11:10 Blood Culture - Preliminary Blood No Growth after 24 hours Assessment and Plan Plan: 1. Suspected bowel obstruction, colitis. Patient is currently on clear liquids only but not tolerating well. Consult with Dr. Ontiveros. Meropenem started and consult with Dr. Chase d[place]. Blood culture is in progress. Continue IV fluids 75 mL per hour. 2. Status post Matos procedure with colostomy placement due to diverticulitis with perforation, and history of phlegmon at ostomy site. 3. Hyperglycemia secondary to steroids. NovoLog scale before meals and at bedtime. 4. COPD without exacerbation. Continue albuterol every 4 hours as needed, Symbicort twice daily. 5. Adrenal insufficiency disorder. we will continue with Cortef 25 mg po in AM and 15 mg in PM. 6. History of [place] granulomatosis. we will continue to monitor and she cerrato been off Retuxan. 7. GERD and GI prophylaxis. Protonix IV. 8. Hypertension and hypertensive cardiovascular disease. Continue Amlodipine 5 mg orally daily, Lisinopril 20 mg orally daily and Metoprolol 50 mg orally bid. 9. Recurrent depression. Continue Cymbalta 20 mg orally daily. 10. History of chronic tobacco use and dependence. patient quit in 2019. 11. DVT prophylaxis. we will start Heparin 5000 units SC Q 8 hours along with knee-high grant hose. Transfer to [facility] once arrangements are completed. Impression and plan of care have been directed as dictated by the signing physician. Lanette Mccarthy nurse practitioner acting as scribe for signing physician.
[2019-12-31] MEDS: HYDROCORTISONE 10 MG TAB PO SCH (17:02)
[2019-12-31 19:55] VITALS: TEMP 98
[2019-12-31] MEDS: LATANOPROST 0.005% OPHTH DROPS 2.5 ML BTL BOTH EYES SCH (20:33)
[2019-12-31 20:42] LABS: Glucose,Whole Blood 107 mg/dL (75-99)
[2019-12-31 20:45] VITALS: BP 163/82; PULSE 68; RESP 17
== END 2019-12-31 20:45 | disposition short-term general hospital (02) | DRG 394 ==
LOC: EC 08:40 → 6NMEDSUR 11:29
PROVIDERS: ADMIT Internal Medicine; ATTEND Internal Medicine
DX: K94.09 Other complications of colostomy (principal); E27.40 Unspecified adrenocortical insufficiency; M31.30 Wegener's granulomatosis without renal involvement; F33.9 Major depressive disorder, recurrent, unspecified; K21.9 Gastro-esophageal reflux disease without esophagitis; E78.5 Hyperlipidemia, unspecified; E11.65 Type 2 diabetes mellitus with hyperglycemia; I11.9 Hypertensive heart disease without heart failure; K52.9 Noninfective gastroenteritis and colitis, unspecified; K76.0 Fatty (change of) liver, not elsewhere classified; T38.0X5A Adverse effect of glucocorticoids and synthetic analogues, initial encounter; Z20.828 Contact with and (suspected) exposure to other viral communicable diseases; J44.9 Chronic obstructive pulmonary disease, unspecified; Z79.899 Other long term (current) drug therapy; Z79.52 Long term (current) use of systemic steroids; Z79.51 Long term (current) use of inhaled steroids; Z88.5 Allergy status to narcotic agent; Z88.8 Allergy status to other drugs, medicaments and biological substances; Z91.09 Other allergy status, other than to drugs and biological substances; I25.2 Old myocardial infarction; Z86.19 Personal history of other infectious and parasitic diseases; Z98.890 Other specified postprocedural states; Z98.891 History of uterine scar from previous surgery; Z87.891 Personal history of nicotine dependence; Z82.49 Family history of ischemic heart disease and other diseases of the circulatory system; Z83.79 Family history of other diseases of the digestive system; Z84.1 Family history of disorders of kidney and ureter; Z87.01 Personal history of pneumonia (recurrent)
CPT/HCPCS: 36415; 74177; 80053; 81001; 82150; 83036; 83605; 83690; 85025; 87040; 87077; 87086; 87186; 94640; 96361; 96374; 96375; 99285

== ENCOUNTER 2020-01-25 02:07 | Observation (INO) | payer BC, OTHER ==
[2020-01-25] MEDS ORDERED: ONDANSETRON 4 MG/2 ML VIAL IVP STA (02:36)
[2020-01-25] MEDS ORDERED: SODIUM CHLORIDE 0.9% 500 ML 500 ML IV STA (02:36)
[2020-01-25 03:22] LABS: Anisocytosis Slight; Basophils % (A) 0 %; Eosinophils # (A) 0.1 k/uL (0-0.7); Eosinophils % (A) 1 %; HCT 34.4 % (34.0-46.0); Hypochromasia Slight; Lymphocytes # (A) 2.3 k/uL (1.0-4.8); Lymphocytes % (A) 28 %; MCHC 30.5 g/dL (31.0-37.0); MCV 88.6 fL (80.0-100.0); Mean Platelet Volume 7.2; Monocytes # (A) 0.7 k/uL (0-1.0); Monocytes % (A) 8 %; Neutrophils # (A) 4.9 k/uL (1.3-7.7); Neutrophils % (A) 59 %; Platelet Count 316 k/uL (150-450); RBC 3.89 m/uL (3.80-5.40); RDW 16.9 % (11.5-15.5); WBC 8.4 k/uL (3.8-10.6)
[2020-01-25 03:33] LABS: ALT 21 U/L (4-34); AST 39 U/L (14-36); African American GFR (CKD) >90 (>60 ml/min/1.73 sqM); Albumin 3.4 g/dL (3.5-5.0); Alkaline Phosphatase 385 U/L (38-126); Amylase 53 U/L (30-110); Anion Gap 7 mmol/L; Blood Urea Nitrogen 11 mg/dL (7-17); Calcium 8.6 mg/dL (8.4-10.2); Carbon Dioxide 32 mmol/L (22-30); Chloride 97 mmol/L (98-107); Glucose 113 mg/dL (74-99); Non-African American GFR(CKD) 86 (>60 ml/min/1.73 sqM); Sodium 136 mmol/L (137-145); Total Bilirubin 0.4 mg/dL (0.2-1.3)
[2020-01-25 03:58] LABS: HGB 10.5 gm/dL (11.4-16.0)
[2020-01-25] MEDS ORDERED: PROMETHAZINE INJ 25 MG in SODIUM CHLORIDE 0.9% 50 ML IVPB ONE (04:00)
[2020-01-25] MEDS ORDERED: OXYBUTYNIN CHLORIDE 5 MG TAB PO STA (04:05)
[2020-01-25] MEDS ORDERED: NALOXONE 0.4 MG/ML 1 ML VIAL IV PRN (05:07)
[2020-01-25] MEDS ORDERED: ACETAMINOPHEN TAB 325 MG TAB PO PRN (05:52)
[2020-01-25] MEDS ORDERED: ONDANSETRON 4 MG/2 ML VIAL IVP PRN (05:52)
[2020-01-25] MEDS: SODIUM CHLORIDE 0.9% 1,000 ML IV SCH ×3 (06:03→21:35)
--- NOTE | 2020-01-25 06:14 | ED ---
Nausea/Vomiting/Diarrhea HPI - General Chief complaint: Nausea/Vomiting/Diarrhea Stated complaint: Vomiting Time Seen by Provider: 01/25/20 02:36 Source: patient, EMS Mode of arrival: EMS Limitations: no limitations - History of Present Illness Initial comments: This patient is 60-year-old woman presenting by pulse to be evaluated for vomiting. Symptoms had come on last night and then worsened over the course of tonight. Patient denies abdominal pain. She does relate that she had been at [facility] in [place], where they performed ileostomy. She states it was because she had a colostomy and it appeared to have developed stenosis. The patient currently denying significant abdominal pain She has not noted anyhematemesis or coffee-ground material. The ileostomy does continue to produce a thin yellow output. MD complaint: nausea, vomiting -: hour(s) Description of Vomiting: food contents, watery Associated Abdominal Pain: No Severity scale (1-10): 0 Improves with: none Worsens with: none Associated Symptoms: denies other symptoms - Related Data Home Medications Medication Instructions Recorded Confirmed Pantoprazole Sodium [Protonix] 40 mg PO DAILY@0600 08/22/18 12/30/19 Hydrocortisone 25 mg PO DAILY@0800 06/06/19 12/30/19 Hydrocortisone [Cortef] 15 mg PO DAILY@1500 06/06/19 12/30/19 Budesonide-Formot 160-4.5 Mcg 2 puff INHALATION RT-BID 06/09/19 12/30/19 [Symbicort 160-4.5 Mcg Inhaler] Albuterol Sulfate [Ventolin HFA] 2 puff INHALATION RT-Q4H PRN 10/16/19 12/30/19 DULoxetine HCL [Cymbalta] 20 mg PO DAILY@0810/16/19 12/30/19 Latanoprost Ophth [Xalatan 0.005%] 1 drop BOTH EYES HS@2100 11/04/19 12/30/19 Metoprolol Tartrate [Lopressor] 50 mg PO BID@0800,1700 11/04/19 12/30/19 Potassium Chloride ER [K-Dur 20] 20 meq PO DAILY@1700 11/04/19 12/30/19 amLODIPine [Norvasc] 5 mg PO DAILY@0800 11/04/19 12/30/19 cycloSPORINE 0.05% OPHTH SOLN 1 drop BOTH EYES Q12HR 11/04/19 12/30/19 [Restasis] Gabapentin [Neurontin] 300 mg PO BID 12/30/19 12/30/19 Ibuprofen [Motrin] 600 mg PO Q8HR PRN 12/30/19 12/30/19 Mirabegron [Myrbetriq] 50 mg PO DAILY 12/30/19 12/30/19 Ondansetron Odt [Zofran Odt] 4 mg PO Q12HR PRN 12/30/19 12/30/19 Simethicone 40 mg/0.6 ml Drops 80 mg PO AC-TID 12/30/19 12/30/19 [Mylicon Drops] lisinopriL [Zestril] 20 mg PO DAILY 12/30/19 12/30/19 traMADol HCl [Ultram] 50 mg PO BID PRN 12/30/19 12/30/19 Allergies Allergy/AdvReac Type Severity Reaction Status Date / Time azathioprine [From Imuran] Allergy Vomiting Verified 12/30/19 09:43 codeine Allergy Nausea Verified 12/30/19 09:43 metronidazole [From Flagyl] Allergy Anaphylaxis Verified 12/30/19 09:43 methotrexate AdvReac Unknown Verified 12/30/19 09:43 Review of Systems ROS Statement: Those systems with pertinent positive or pertinent negative responses have been documented in the HPI. ROS Other: All systems not noted in ROS Statement are negative. Constitutional: Denies: fever, chills, weakness Respiratory: Denies: cough, dyspnea Cardiovascular: Denies: chest pain, palpitations, edema Gastrointestinal: Reports: nausea, vomiting. Denies: diarrhea, constipation, hematemesis, melena, hematochezia Genitourinary: Denies: dysuria, hematuria Musculoskeletal: Denies: back pain Skin: Denies: rash Neurological: Denies: headache, weakness, numbness Past Medical History Past Medical History: COPD, Diabetes Mellitus, Eye Disorder, GERD/Reflux, Hyperlipidemia, Hypertension, Myocardial Infarction (VT), Pneumonia, Renal Disease, Respiratory Disorder Additional Past Medical History / Comment(s): Pt recently admitted to [facility] on 11/04/19 with possible phlegmon formation at ostomy site essentiall ruled out. 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 Last Myocardial Infarction Date:: 2015 History of Any Multi-Drug Resistant Organisms: None Reported Date of last positivie culture/infection: 2015 MDRO Source:: Stool Past Surgical History: Bowel Resection, Section, Heart Catheterization, Orthopedic Surgery Additional Past Surgical History / Comment(s): 10/21/19 Hartmans procedure/colostomy, exploratory laparoscopies 3-4, right lung resection 2016, L humerus double compound fx repair, colonoscopy, hemorrhoidectomy, lithotripsy x 2. Past Anesthesia/Blood Transfusion Reactions: No Reported Reaction Additional Past Anesthesia/Blood Transfusion Reaction / Comment(s): Pt has received blood in past without reaction. Past Psychological History: Depression Smoking Status: Former smoker Past Alcohol Use History: None Reported Past Drug Use History: Marijuana - Past Family History Mother Family Medical History: Coronary Artery Disease (CAD) Additional Family Medical History / Comment(s): Mother at age 78 with history of coronary artery disease status post multiple stents. Father Family Medical History: Myocardial Infarction (VT) Additional Family Medical History / Comment(s): Father at age 45 from myocardial infarction. Brother(s) Family Medical History: Hypertension Additional Family Medical History / Comment(s): Patient has 1 brother with hypertension and kidney stones. Sister(s) Family Medical History: No Reported History Additional Family Medical History / Comment(s): Patient has one sister with CHRONIC HYPERCOHDRIA AND GALLSTONES Daughter(s) Family Medical History: No Reported History Additional Family Medical History / Comment(s): Patient has 2 daughters with no major medical problems. General Exam Limitations: no limitations General appearance: alert, in no apparent distress Head exam: Present: atraumatic, normocephalic Neck exam: Present: normal inspection Respiratory exam: Present: normal lung sounds bilaterally. Absent: respiratory distress, wheezes, rales, rhonchi, stridor Cardiovascular Exam: Present: regular rate, normal rhythm, normal heart sounds. Absent: systolic murmur, diastolic murmur, rubs, gallop GI/Abdominal exam: Present: soft, normal bowel sounds. Absent: distended, tenderness, guarding, rebound, rigid, mass, pulsatile mass Extremities exam: Present: normal inspection, normal capillary refill. Absent: pedal edema, calf tenderness Back exam: Present: normal inspection. Absent: CVA tenderness (R), CVA tenderness (L) Neurological exam: Present: alert Skin exam: Present: warm, dry, intact, normal color. Absent: rash Course Vital Signs 01/25/20 01/25/20 01/25/20 02:10 03:45 04:50 Temperature 98.6 F 98.8 F 98.4 F Pulse Rate 85 82 88 Respiratory 18 16 16 Rate Blood Pressure 141/73 138/86 138/81 O2 Sat by Pulse 98 98 98 Oximetry Medical Decision Making - Medical Decision Making patient is 60-year-old woman with multiple rounds of vomiting at home. Workup does reveal that she is mildly hypokalemic and mildly hyponatremic. The patient is feeling a bit better though still having some nausea. Discussed transferring her back to [facility] but she states she does not feel there is a postsurgical problemshe is not having abdominal pain. Case discussed with her admitting physician. - Lab Data Result diagrams: 01/25/20 03:01 01/25/20 03:01 Lab Results 01/25/20 01/25/20 01/25/20 Range/Units 03:01 03:01 03:01 WBC 8.4 (3.8-10.6) k/uL RBC 3.89 (3.80-5.40) m/uL Hgb 10.5 L D (11.4-16.0) gm/dL Hct 34.4 (34.0-46.0) % MCV 88.6 (80.0-100.0) fL MCH 27.0 (25.0-35.0) pg MCHC 30.5 L (31.0-37.0) g/dL RDW 16.9 H (11.5-15.5) % Plt Count 316 (150-450) k/uL Neutrophils % 59 % Lymphocytes % 28 % Monocytes % 8 % Eosinophils % 1 % Basophils % 0 % Neutrophils # 4.9 (1.3-7.7) k/uL Lymphocytes # 2.3 (1.0-4.8) k/uL Monocytes # 0.7 (0-1.0) k/uL Eosinophils # 0.1 (0-0.7) k/uL Basophils # 0.0 (0-0.2) k/uL Hypochromasia Slight Anisocytosis Slight Sodium 136 L (137-145) mmol/L Potassium 3.0 L (3.5-5.1) mmol/L Chloride 97 L (98-107) mmol/L Carbon Dioxide 32 H (22-30) mmol/L Anion Gap 7 mmol/L BUN 11 (7-17) mg/dL Creatinine 0.75 (0.52-1.04) mg/dL Est GFR (CKD-EPI)AfAm >90 (>60 ml/min/1.73 sqM) Est GFR (CKD-EPI)NonAf 86 (>60 ml/min/1.73 sqM) Glucose 113 H (74-99) mg/dL Plasma Lactic Acid Jacobo 1.2 (0.7-2.0) mmol/L Calcium 8.6 (8.4-10.2) mg/dL Total Bilirubin 0.4 (0.2-1.3) mg/dL AST 39 H (14-36) U/L ALT 21 (4-34) U/L Alkaline Phosphatase 385 H (38-126) U/L Total Protein 6.0 L (6.3-8.2) g/dL Albumin 3.4 L (3.5-5.0) g/dL Amylase 53 (30-110) U/L Lipase 408 H (23-300) U/L Disposition Clinical Impression: Intractable vomiting, Hyponatremia, Hypokalemia Disposition: ADMITTED IP TO THIS [facility] Condition: Fair
[2020-01-25] MEDS ORDERED: POTASSIUM CHLORIDE ER 20 MEQ TAB.ER PO STA ×2 (06:16→10:14)
--- NOTE | 2020-01-25 09:28 | P.HPIM ---
History of Present Illness H&P Date: 01/25/20 Chief Complaint: Nausea/vomiting This is a 60-year-old female patient of Dr. Alvarez with past medical history of diabetes mellitus type 2, Sudha granulomatosis, gastroesophageal reflux disease, hypertension, history of sigmoid diverticulitis with perforation and peritonitis status post Dong procedure and colostomy placement followed by possible phlegmon formation at the ostomy site and underwent IV antibiotic treatment with meropenem. Bedtime she was discharged to [facility] and was subsequently discharged from [facility] on November 20. She has had follow-up in the office and was doing great following that. Patient developed to have a significant bowel pain and had no output through her ostomy she was admitted to the hospital [facility] and subsequently she was transferred to [facility] for evaluation of exploratory laparotomy lysis of adhesion and takedown the colostomy with creation of loop ileostomy and mobilization of the splenic flexure with colo-proctostomy that was done on 01/03/[address] Lucas Blankenship , patient stayed in the hospital up until this past Sunday her hospital course was complicated By right midline thrombus for which she was placed on Coumadin also with intractable nausea and vomiting and right-sided abdominal pain, was discharged from [facility] on [id number] night and she has been complaining of increased nausea and vomiting all Sunday her home health care nurse came and evaluated her and she told her her to go to the emergency department for evaluation she came to [facility] with intractable nausea and vomiting she was given the option of getting transferred to [facility] however she decided to stay with us she was started on IV fluid in the form of normal saline she was slightly hypokalemic and hyponatremic and she was admitted to the hospital for observation. Review of Systems Constitutional: Reports chronic pain, Reports malaise, Reports weakness, Denies anorexia, Denies fatigue Eyes: denies blurred vision, denies bulging eye, denies decreased vision Ears: deny: decreased hearing Ears, nose, mouth and throat: Denies dysphagia, Denies neck lump, Denies sore throat Cardiovascular: Denies chest pain, Denies decreased exercise tolerance, Denies dyspnea on exertion, Denies leg edema, Denies rapid heart beat, Denies shortness of breath, Denies syncope Respiratory: Denies congestion, Denies cough with sputum, Denies home oxygen, Denies sleep apnea, Denies snoring, Denies wheezing Gastrointestinal: Reports abdominal pain, Reports diarrhea, Reports dyspepsia, Reports loss of appetite, Reports nausea, Reports vomiting, Denies heartburn, Denies melena Genitourinary: Denies dysuria, Denies hematuria Musculoskeletal: Denies myalgias Musculoskeletal: absent: ankle pain, ankle stiffness, ankle swelling, elbow pain, elbow stiffness, elbow swelling, foot pain, foot stiffness, foot swelling, hand pain, hand stiffness, hand swelling, hip pain, hip stiffness, hip swelling, knee pain, knee stiffness, knee swelling, shoulder pain, shoulder stiffness, shoulder swelling, wrist pain, wrist stiffness, wrist swelling Integumentary: Denies pruritus, Denies rash Neurological: Denies numbness, Denies weakness Psychiatric: Reports anxiety, Reports depression, Denies sadness/tearfulness, Denies sleep disturbances, Denies suicidal ideation Endocrine: Denies fatigue, Denies weight change Past Medical History Past Medical History: COPD, Diabetes Mellitus, Eye Disorder, GERD/Reflux, Hyperlipidemia, Hypertension, Myocardial Infarction (ME), Pneumonia, Renal Disease, Respiratory Disorder Additional Past Medical History / Comment(s): Pt recently admitted to [facility] on 11/04/19 with possible phlegmon formation at ostomy site essentiall ruled out. 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 Last Myocardial Infarction Date:: 2016 History of Any Multi-Drug Resistant Organisms: None Reported Date of last positivie culture/infection: 2015 MDRO Source:: Stool Past Surgical History: Bowel Resection, Section, Heart Catheterization, Orthopedic Surgery Additional Past Surgical History / Comment(s): 10/21/19 Hartmans procedure/colostomy, exploratory laparoscopies 3-4, right lung resection 2016, L humerus double compound fx repair, colonoscopy, hemorrhoidectomy, lithotripsy x 2. Past Anesthesia/Blood Transfusion Reactions: No Reported Reaction Additional Past Anesthesia/Blood Transfusion Reaction / Comment(s): Pt has received blood in past without reaction. Past Psychological History: Depression Additional Psychological History / Comment(s): Pt resides alone with her cat in an apartment. She is independent. She states d/t recent colostomy/health issues, she has had an increase in depression but denies thoughts/plans of suicide. Smoking Status: Former smoker Past Alcohol Use History: None Reported Additional Past Alcohol Use History / Comment(s): Patient was a smoker one pack per day for 30 years and quit in July 2018. No alcohol use, no marijuana or street drug use. Past Drug Use History: Marijuana - Past Family History Mother Family Medical History: Coronary Artery Disease (CAD) Additional Family Medical History / Comment(s): Mother at age 78 with history of coronary artery disease status post multiple stents. Father Family Medical History: Myocardial Infarction (ME) Additional Family Medical History / Comment(s): Father at age 45 from myocardial infarction. Brother(s) Family Medical History: Hypertension Additional Family Medical History / Comment(s): Patient has 1 brother with hypertension and kidney stones. Sister(s) Family Medical History: No Reported History Additional Family Medical History / Comment(s): Patient has one sister with CHRONIC HYPERCOHDRIA AND GALLSTONES Daughter(s) Family Medical History: No Reported History Additional Family Medical History / Comment(s): Patient has 2 daughters with no major medical problems. Medications and Allergies Home Medications Medication Instructions Recorded Confirmed Type Hydrocortisone 25 mg PO DAILY@0800 06/06/19 01/25/20 History Hydrocortisone [Cortef] 15 mg PO DAILY@1200 06/06/19 01/25/20 History Budesonide-Formot 160-4.5 Mcg 2 puff INHALATION RT-BID 06/09/19 01/25/20 History [Symbicort 160-4.5 Mcg Inhaler] DULoxetine HCL [Cymbalta] 20 mg PO DAILY@0800 10/16/19 01/25/20 History Latanoprost Ophth [Xalatan 0.005%] 1 drop BOTH EYES HS@2100 11/04/19 01/25/20 History Metoprolol Tartrate [Lopressor] 50 mg PO BID@0800,1700 11/04/19 01/25/20 History amLODIPine [Norvasc] 5 mg PO DAILY@0800 11/04/19 01/25/20 History cycloSPORINE 0.05% OPHTH SOLN 1 drop BOTH EYES Q12HR 11/04/19 01/25/20 History [Restasis] Ondansetron Odt [Zofran Odt] 4 mg PO Q12HR PRN 12/30/19 01/25/20 History traMADol HCl [Ultram] 50 mg PO TID 12/30/19 01/25/20 History Acetaminophen Tab [Tylenol Tab] 1,000 mg PO Q4H PRN 01/25/20 01/25/20 History Calcium Carbonate/Vitamin D3 1 tab PO BID 01/25/20 01/25/20 History [Calcium 500-Vit D3 200 Tablet] Cholecalciferol [Vitamin D3 (25 5,000 unit PO DAILY 01/25/20 01/25/20 History Mcg = 1000 Iu)] Famotidine 40 mg PO DAILY 01/25/20 01/25/20 History Gabapentin [Neurontin] 400 mg PO Q8H 01/25/20 01/25/20 History HYDROcodone/APAP 7.5-325MG [[place] 1 tab PO Q6H PRN 01/25/20 01/25/20 History 7.5-325] Menthol-Zinc Oxide Oint 1 applic TOPICAL DAILY PRN 01/25/20 01/25/20 History [Calmoseptine Oint] Oxybutynin Chloride [Ditropan] 5 mg PO DAILY 01/25/20 01/25/20 History Warfarin [Coumadin] 5 mg PO ONCE 01/25/20 01/25/20 History Warfarin [Coumadin] 7.5 mg PO ONCE 01/25/20 01/25/20 History prednisoLONE ACETATE [Pred Forte 1 drop BOTH EYES DAILY 01/25/20 01/25/20 History 1%] Allergies Allergy/AdvReac Type Severity Reaction Status Date / Time azathioprine [From Imuran] Allergy Vomiting Verified 01/25/20 09:37 codeine Allergy Nausea Verified 01/25/20 09:37 metronidazole [From Flagyl] Allergy Anaphylaxis Verified 01/25/20 09:37 methotrexate AdvReac Unknown Verified 01/25/20 09:37 Physical Exam Vitals: Vital Signs Temp Pulse Pulse Resp BP BP Pulse Ox 01/25/20 06:19 100 19 138/83 97 01/25/20 05:50 98.4 F 79 16 132/71 97 01/25/20 04:50 98.4 F 88 16 138/81 98 01/25/20 03:45 98.8 F 82 16 138/86 98 01/25/20 02:10 98.6 F 85 18 141/73 98 Intake and Output 01/24/20 01/25/20 01/25/20 23:59 06:59 14:59 Other: Weight Physical examination: HEENT: head is atraumatic normocephalic pupils were equal round reactive to light and accomodations, extra ocular muscle movement were intact, mucous membranes of the mouth are somewhat dry. Neck: supple no JVP. Chest: decrease breath sounds at the bases with few ronchi no expiratory wheezes, no chest wall tenderness or intercostal retraction. Heart: firs heart sound is depressed, second heart sound is normal, there is no gallop or murmur. Abdomen: distended, soft, there is colostomy bag , moderate generalized tenderness bilaterally, depressed bowel sounds. Extremities: there is no edema or calf tenderness, DP +2 bilaterally. Neurologic examination: patient is awake , alert and oriented X 3 CN II-XII are grossly intact, muscle power 5/5 in bilateral upper and lower extremities, Deep tendon reflexes are normal. Results CBC & Chem 7: 01/25/20 03:01 01/25/20 03:01 Labs: Abnormal Lab Results - Last 24 Hours (Table) 01/25/20 01/25/20 Range/Units 03:01 03:01 Hgb 10.5 L D (11.4-16.0) gm/dL MCHC 30.5 L (31.0-37.0) g/dL RDW 16.9 H (11.5-15.5) % Sodium 136 L (137-145) mmol/L Potassium 3.0 L (3.5-5.1) mmol/L Chloride 97 L (98-107) mmol/L Carbon Dioxide 32 H (22-30) mmol/L Glucose 113 H (74-99) mg/dL AST 39 H (14-36) U/L Alkaline Phosphatase 385 H (38-126) U/L Total Protein 6.0 L (6.3-8.2) g/dL Albumin 3.4 L (3.5-5.0) g/dL Lipase 408 H (23-300) U/L Thrombosis Risk Factor Assmnt - Choose All That Apply Each Factor Represents 1 point: Age 41-60 years, Obesity (BMI >25) Each Risk Factor Represents 2 Points: Age 61-74 years Thrombosis Risk Factor Assessment Total Risk Factor Score: 4 Thrombosis Risk Factor Assessment Level: Moderate Risk Assessment and Plan Assessment: Assessment and Plan Plan: 1. Intractable nausea and vomiting with dehydration along with hyponatremia and hypo-kalemia. Patient was started on IV fluid resuscitation, we will replace her potassium, we'll continue with antiemetic, we'll continue with pain management, will obtain abdominal x-rays just to make sure there is no bowel obstruction at this point in time. 2. Status post Matos procedure with colostomy placement due to diverticulitis with perforation, and history of phlegmon at ostomy site, with a takedown of prior occluded colostomy with ileostomy placement that was just done recently at [facility] on 01/03/2020. 3. Hyponatremia and hypokalemia. Status post placement.. 4. COPD without exacerbation. Continue albuterol every 4 hours as needed, Symbicort twice daily. 5. Adrenal insufficiency disorder. we will continue with Cortef 25 mg po in AM and 15 mg in PM. 6. History of Xenia granulomatosis. we will continue to monitor and she cerrato been off Retuxan. 7. GERD. Continue patient on Protonix 40 mg IV push every 24 hours. 8. Hypertension and hypertensive cardiovascular disease. Continue Amlodipine 5 mg orally daily, metoprolol 50 minute gram orally twice every day. 9. Recurrent depression. Continue Cymbalta 20 mg orally daily. 10. History of DVT of the right upper extremity. Continue Coumadin keep INR between 2-3. 11. DVT prophylaxis with a prior history of right upper extremity thrombus. Continue Coumadin 7.5 mg at bedtime monitor the patient PT and INR. 12. GI prophylaxis. Continue Protonix or Pepcid. 13. Observation. 14. Full code.
[2020-01-25] MEDS ORDERED: MENTHOL-ZINC OXIDE OINT 113 GM TUBE TOPICAL PRN (10:04)
--- NOTE | 2020-01-25 11:02 | XR ---
EXAMINATION TYPE: XR abdomen 2V DATE OF EXAM: 01/25/2020 COMPARISON: 10/21/2019 INDICATION: Nausea vomiting TECHNIQUE: Abdominal series with supine and upright views FINDINGS: Small right pleural effusion is present. No free air is identified. No differential air-fluid levels are evident. Psoas margins are normal. No organomegaly is present. Few punctate calcifications overlie the renal shadows bilaterally likely related to renal stones. Dis raissa left ureteral stones are not excluded overlying the sacrum. Largest of these measures approximate ly 0.2 cm. IMPRESSION: 1. May be some calcification overlying the left sacrum which could be a distal left ureteral stone. 2. Bilateral renal calcifications likely present. 3. Nonspecific bowel gas pattern
[2020-01-25] MEDS: HYDROcodone/APAP 7.5-325MG 1 EACH TAB PO PRN ×2 (11:17→17:40)
[2020-01-25 11:49] LABS: INR 1.6 (<1.2); Prothrombin Time 15.3 sec (9.0-12.0)
[2020-01-25 12:15] VITALS: RESP 18
[2020-01-25] MEDS: GABAPENTIN 400 MG CAP PO SCH ×2 (13:03→17:37)
[2020-01-25] MEDS: HYDROCORTISONE 10 MG TAB PO SCH (13:04)
[2020-01-25] MEDS ORDERED: PROMETHAZINE 25 MG TAB PO PRN (13:31)
[2020-01-25] MEDS: METOPROLOL TARTRATE 50 MG TAB PO SCH (16:09)
[2020-01-25] MEDS: traMADol 50 MG TAB PO SCH ×2 (16:10→21:14)
[2020-01-25] MEDS: PANTOPRAZOLE 40 MG/10 ML VIAL IVP SCH (16:10)
[2020-01-25] MEDS ORDERED: WARFARIN 7.5 MG TAB PO ONE (18:00)
[2020-01-25] MEDS: SYMBICORT 160-4.5 MCG INHALER INHALATION SCH (19:00)
[2020-01-25] MEDS ORDERED: LATANOPROST 0.005% OPHTH DROPS 2.5 ML BTL BOTH EYES SCH (21:00)
[2020-01-25] MEDS: CALCIUM CARB-VIT D 500MG-200UN 1 EACH TAB PO SCH (21:14)
[2020-01-25] MEDS: cycloSPORINE 0.05% OPHTH 0.4 ML DROPERETTE BOTH EYES SCH (21:35)
[2020-01-26] MEDS: GABAPENTIN 400 MG CAP PO SCH ×2 (00:11→07:24)
[2020-01-26 02:13] LABS: Appearance,Urine Clear (Clear); Bacteria,Urine Rare /hpf; Bilirubin,Urine Negative (Negative); Blood,Urine Negative (Negative); Color,Urine Yellow; Glucose,Urine (UA) Negative (Negative); Ketones,Urine Negative (Negative); Leukocyte Esterase,Urine Trace (Negative); Mucus,Urine Few /hpf; Nitrite,Urine Negative (Negative); PH, Urine 6.5 (5.0-8.0); Protein,Urine Trace (Negative); RBC,Urine 1 /hpf (0-5); Specific Gravity,Urine 1.016 (1.001-1.035); Squamous Epithelial Cell,Urine 5 /hpf (0-4); Urobilinogen,Urine <2.0 mg/dL (<2.0); WBC,Urine 9 /hpf (0-5)
[2020-01-26] MEDS: METOPROLOL TARTRATE 50 MG TAB PO SCH (07:24)
[2020-01-26] MEDS ORDERED: amLODIPine 5 MG TAB PO SCH (08:00)
[2020-01-26] MEDS ORDERED: HYDROCORTISONE 10 MG TAB PO SCH (08:00)
[2020-01-26 08:09] LABS: Anisocytosis Slight; Basophils % (A) 1 %; Eosinophils # (A) 0.1 k/uL (0-0.7); Eosinophils % (A) 1 %; HCT 31.1 % (34.0-46.0); HGB 9.5 gm/dL (11.4-16.0); Hypochromasia Marked; Lymphocytes # (A) 2.4 k/uL (1.0-4.8); Lymphocytes % (A) 33 %; MCH 27.7 pg (25.0-35.0); MCHC 30.4 g/dL (31.0-37.0); Mean Platelet Volume 6.7; Monocytes # (A) 0.6 k/uL (0-1.0); Monocytes % (A) 8 %; Neutrophils # (A) 3.9 k/uL (1.3-7.7); Neutrophils % (A) 54 %; Platelet Count 305 k/uL (150-450); RBC 3.42 m/uL (3.80-5.40); RDW 16.9 % (11.5-15.5); WBC 7.3 k/uL (3.8-10.6)
[2020-01-26 08:20] LABS: INR 1.5 (<1.2)
[2020-01-26 08:35] LABS: Calcium 8.5 mg/dL (8.4-10.2); Magnesium 1.3 mg/dL (1.6-2.3); Potassium 4.2 mmol/L (3.5-5.1); Total Bilirubin 0.3 mg/dL (0.2-1.3); Total Protein 5.4 g/dL (6.3-8.2)
[2020-01-26] MEDS: traMADol 50 MG TAB PO SCH (08:49)
[2020-01-26] MEDS: cycloSPORINE 0.05% OPHTH 0.4 ML DROPERETTE BOTH EYES SCH (08:49)
[2020-01-26] MEDS: CALCIUM CARB-VIT D 500MG-200UN 1 EACH TAB PO SCH (08:50)
[2020-01-26] MEDS ORDERED: CHOLECALCIFEROL 1,000 UNIT TAB PO SCH (09:00)
[2020-01-26] MEDS ORDERED: prednisoLONE ACETATE 1% OPHTH DROPS 5 ML BTL BOTH EYES SCH (09:00)
[2020-01-26] MEDS ORDERED: FAMOTIDINE 20 MG TAB PO SCH (09:00)
[2020-01-26] MEDS ORDERED: OXYBUTYNIN CHLORIDE 5 MG TAB PO SCH (09:00)
[2020-01-26] MEDS: PANTOPRAZOLE 40 MG/10 ML VIAL IVP SCH (09:07)
[2020-01-26] MEDS: SYMBICORT 160-4.5 MCG INHALER INHALATION SCH (09:24)
[2020-01-26 09:47] VITALS: BP 137/75; PULSE 96; TEMP 98.5
[2020-01-26] MEDS: HYDROcodone/APAP 7.5-325MG 1 EACH TAB PO PRN (10:43)
[2020-01-26] MEDS: HYDROCORTISONE 10 MG TAB PO SCH (12:59)
--- NOTE | 2020-01-26 13:00 | P.DS ---
Providers Date of admission: 01/25/20 05:07 Expected date of discharge: 01/26/20 Attending physician: Connor Alvarez Primary care physician: Connor Alvarez [facility] Course: This is a 60-year-old female patient of Dr. Alvarez with past medical history of diabetes mellitus type 2, Curtis granulomatosis, gastroesophageal reflux disease, hypertension, history of sigmoid diverticulitis with perforation and peritonitis status post Dong procedure and colostomy placement followed by possible phlegmon formation at the ostomy site and underwent IV antibiotic treatment with meropenem. Bedtime she was discharged to [facility] and was subseq uently discharged from [facility] on November 20. She has had follow-up in the office and was doing great following that. Patient developed to have a significant bowel pain and had no output through her ostomy she was admitted to the hospital [facility] and subsequently she was transferred to [facility] for evaluation of exploratory laparotomy lysis of adhesion and takedown the colostomy with creation of loop ileostomy and mobilization of the splenic flexure with colo-proctostomy that was done on 01/03/[address] Lucas Blankenship , patient stayed in the hospital up until this past Sunday her hospital course was complicated By right midline thrombus for which she was placed on Coumadin also with intractable nausea and vomiting and right-sided abdominal pain, was discharged from [facility] on [id number] night and she has been complaining of increased nausea and vomiting all Sunday her home health care nurse came and evaluated her and she told her her to go to the emergency department for evaluation she came to [facility] with intractable nausea and vomiting she was given the option of getting transferred to [facility] however she decided to stay with us she was started on IV fluid in the form of normal saline she was slightly hypokalemic and hyponatremic and she was admitted to the hospital for observation. discharge diagnoses: 1. Intractable nausea and vomiting with dehydration along with hyponatremia and hypo-kalemia. 2. Status post Matos procedure with colostomy placement due to diverticulitis with perforation, and history of phlegmon at ostomy site, with a takedown of prior occluded colostomy with ileostomy placement that was just done recently at [facility] on 01/03/2020. 3. Hyponatremia and hypokalemia. 4. COPD without exacerbation. 5. Adrenal insufficiency disorder. 6. History of Rhodell granulomatosis. 7. GERD. 8. Hypertension and hypertensive cardiovascular disease. 9. Recurrent depression. 10. History of DVT of the right upper extremity. Patient Condition at Discharge: Fair Plan - Discharge Summary New Discharge Prescriptions: No Action Hydrocortisone 25 mg PO DAILY@0800 Hydrocortisone [Cortef] 15 mg PO DAILY@1200 Budesonide-Formot 160-4.5 Mcg [Symbicort 160-4.5 Mcg Inhaler] 2 puff INHALATION RT-BID DULoxetine HCL [Cymbalta] 20 mg PO DAILY@0800 cycloSPORINE 0.05% OPHTH SOLN [Restasis] 1 drop BOTH EYES Q12HR amLODIPine [Norvasc] 5 mg PO DAILY@0800 Metoprolol Tartrate [Lopressor] 50 mg PO BID@0800,1700 Latanoprost Ophth [Xalatan 0.005%] 1 drop BOTH EYES HS@2100 Ondansetron Odt [Zofran Odt] 4 mg PO Q12HR PRN PRN Reason: Nausea traMADol HCl [Ultram] 50 mg PO TID Warfarin [Coumadin] 7.5 mg PO ONCE Warfarin [Coumadin] 5 mg PO ONCE prednisoLONE ACETATE [Pred Forte 1%] 1 drop BOTH EYES DAILY Cholecalciferol [Vitamin D3 (25 Mcg = 1000 Iu)] 5,000 unit PO DAILY Calcium Carbonate/Vitamin D3 [Calcium 500-Vit D3 200 Tablet] 1 tab PO BID Oxybutynin Chloride [Ditropan] 5 mg PO DAILY Menthol-Zinc Oxide Oint [Calmoseptine Oint] 1 applic TOPICAL DAILY PRN PRN Reason: Rash HYDROcodone/APAP 7.5-325MG [[place] 7.5-325] 1 tab PO Q6H PRN PRN Reason: Pain Gabapentin [Neurontin] 400 mg PO Q8H Famotidine 40 mg PO DAILY Acetaminophen Tab [Tylenol Tab] 1,000 mg PO Q4H PRN PRN Reason: Mild Pain Discharge Medication List Hydrocortisone 25 mg PO DAILY@0800 06/06/19 [History] Hydrocortisone [Cortef] 15 mg PO DAILY@1200 06/06/19 [History] Budesonide-Formot 160-4.5 Mcg [Symbicort 160-4.5 Mcg Inhaler] 2 puff INHALATION RT-BID 06/09/19 [History] DULoxetine HCL [Cymbalta] 20 mg PO DAILY@0800 10/16/19 [History] Latanoprost Ophth [Xalatan 0.005%] 1 drop BOTH EYES HS@2100 11/04/19 [History] Metoprolol Tartrate [Lopressor] 50 mg PO BID@0800,1700 11/04/19 [History] amLODIPine [Norvasc] 5 mg PO DAILY@0800 11/04/19 [History] cycloSPORINE 0.05% OPHTH SOLN [Restasis] 1 drop BOTH EYES Q12HR 11/04/19 [History] Ondansetron Odt [Zofran Odt] 4 mg PO Q12HR PRN 12/30/19 [History] traMADol HCl [Ultram] 50 mg PO TID 12/30/19 [History] Acetaminophen Tab [Tylenol Tab] 1,000 mg PO Q4H PRN 01/25/20 [History] Calcium Carbonate/Vitamin D3 [Calcium 500-Vit D3 200 Tablet] 1 tab PO BID 01/25/20 [History] Cholecalciferol [Vitamin D3 (25 Mcg = 1000 Iu)] 5,000 unit PO DAILY 01/25/20 [History] Famotidine 40 mg PO DAILY 01/25/20 [History] Gabapentin [Neurontin] 400 mg PO Q8H 01/25/20 [History] HYDROcodone/APAP 7.5-325MG [[place] 7.5-325] 1 tab PO Q6H PRN 01/25/20 [History] Menthol-Zinc Oxide Oint [Calmoseptine Oint] 1 applic TOPICAL DAILY PRN 01/25/20 [History] Oxybutynin Chloride [Ditropan] 5 mg PO DAILY 01/25/20 [History] Warfarin [Coumadin] 5 mg PO ONCE 01/25/20 [History] Warfarin [Coumadin] 7.5 mg PO ONCE 01/25/20 [History] prednisoLONE ACETATE [Pred Forte 1%] 1 drop BOTH EYES DAILY 01/25/20 [History]
[2020-01-26] MEDS: MAGNESIUM SULFATE-D5W PMX 1 GM in DEXTROSE/WATER 1 100ML.BAG IVPB SCH ×2 (13:22→14:23)
[2020-01-26] MEDS: SODIUM CHLORIDE 0.9% 1,000 ML IV SCH (13:26)
[2020-01-26] MEDS ORDERED: WARFARIN 5 MG TAB PO ONE (18:00)
== END 2020-01-26 15:45 | disposition home or self-care (01) ==
LOC: EC 02:07 → 1SOBS 05:07
PROVIDERS: ADMIT Internal Medicine; ATTEND Internal Medicine
DX: R11.2 Nausea with vomiting, unspecified (principal); E87.1 Hypo-osmolality and hyponatremia; E87.6 Hypokalemia; E86.0 Dehydration; J44.9 Chronic obstructive pulmonary disease, unspecified; K21.9 Gastro-esophageal reflux disease without esophagitis; E78.5 Hyperlipidemia, unspecified; I10 Essential (primary) hypertension; I25.2 Old myocardial infarction; E11.40 Type 2 diabetes mellitus with diabetic neuropathy, unspecified; E27.40 Unspecified adrenocortical insufficiency; F33.9 Major depressive disorder, recurrent, unspecified; M31.30 Wegener's granulomatosis without renal involvement; G89.29 Other chronic pain; R10.9 Unspecified abdominal pain; R19.7 Diarrhea, unspecified; H57.9 Unspecified disorder of eye and adnexa; N28.9 Disorder of kidney and ureter, unspecified; E66.9 Obesity, unspecified; Z68.33 Body mass index [BMI] 33.0-33.9, adult; I11.9 Hypertensive heart disease without heart failure; Z93.2 Ileostomy status; Z79.899 Other long term (current) drug therapy; Z79.51 Long term (current) use of inhaled steroids; Z79.1 Long term (current) use of non-steroidal anti-inflammatories (NSAID); Z79.891 Long term (current) use of opiate analgesic; Z79.52 Long term (current) use of systemic steroids; Z79.01 Long term (current) use of anticoagulants; Z88.1 Allergy status to other antibiotic agents; Z88.5 Allergy status to narcotic agent; Z88.8 Allergy status to other drugs, medicaments and biological substances; Z87.01 Personal history of pneumonia (recurrent); Z87.19 Personal history of other diseases of the digestive system; Z87.442 Personal history of urinary calculi; Z86.718 Personal history of other venous thrombosis and embolism; Z87.891 Personal history of nicotine dependence; Z90.49 Acquired absence of other specified parts of digestive tract; Z82.49 Family history of ischemic heart disease and other diseases of the circulatory system; Z84.1 Family history of disorders of kidney and ureter; Z84.89 Family history of other specified conditions
CPT/HCPCS: 96361 ×2; 96375; 96376 ×2; 96374; 99285; 51798; 36415; 94640 ×2; 80053 ×2; 82150; 83605; 83690; 83735; 85025 ×2; 85610 ×2; 81001; 74019; G0378 ×2; J2550; J2405; J3475; C9113 ×2

== ENCOUNTER 2020-01-27 11:27 | Emergency (ER) | payer BC, OTHER ==
[2020-01-27 11:37] VITALS: RESP 18; TEMP 98.7
[2020-01-27] MEDS ORDERED: SODIUM CHLORIDE 0.9% 1,000 ML IV STA (11:51)
--- NOTE | 2020-01-27 12:33 | ED ---
Abdominal Pain HPI - General Source: EMS, RN notes reviewed, old records reviewed Mode of arrival: EMS Limitations: no limitations <Latosha Killian - Last Filed: 01/27/20 15:02> <Santiago Milan - Last Filed: 01/27/20 16:16> - General Chief Complaint: Abdominal Pain Stated Complaint: Abd Pain Time Seen by Provider: 01/27/20 11:31 - History of Present Illness Initial Comments: 60-year-old female with history of diabetes, GERD hypertension and diverticulitis with perforation and peritonitis post-Dong procedure and colostomy placement followed by phlegmonous formation at the ostomy site in October. She completed treatment with IV meropenum. On December 29, she presented back to [facility] with abdominal pain and she was transferred for lysis of adhesion at [facility] with creation of loop ileostomy and immobilization of splenic flexure with coloproctostomy on 01/03/[address] Lucas Blankenship. Patient was admitted to [facility] until last Sunday and discharged home. While hospitalized She developed midline thrombus was placed on Coumadin. She was then admitted for intractable nausea and vomiting, and ripping abdominal pain on January 24 and discharged home yesterday. She reports that after being discharged home she is feeling well until the evening time when she ate and had significant abdominal pain with nausea and vomiting. He states it feels like a gun ripping sensation in her abdomen. She reports that she does have output from her ostomy site. Patient states that she also has noticed some brown tinged fluid per rectum which is new. (Latosha Killian) - Related Data Home Medications Medication Instructions Recorded Confirmed Hydrocortisone 25 mg PO DAILY@0800 06/06/19 01/27/20 Hydrocortisone [Cortef] 15 mg PO DAILY@1200 06/06/19 01/27/20 Budesonide-Formot 160-4.5 Mcg 2 puff INHALATION RT-BID 06/09/19 01/27/20 [Symbicort 160-4.5 Mcg Inhaler] DULoxetine HCL [Cymbalta] 20 mg PO DAILY@0800 10/16/19 01/27/20 Latanoprost Ophth [Xalatan 0.005%] 1 drop BOTH EYES HS@2100 11/04/19 01/27/20 Metoprolol Tartrate [Lopressor] 50 mg PO BID@0800,1700 11/04/19 01/27/20 amLODIPine [Norvasc] 5 mg PO DAILY@0800 11/04/19 01/27/20 cycloSPORINE 0.05% OPHTH SOLN 1 drop BOTH EYES Q12HR 11/04/19 01/27/20 [Restasis] Ondansetron Odt [Zofran ODT] 4 mg PO Q12HR PRN 12/30/19 01/27/20 traMADol HCl [Ultram] 50 mg PO TID 12/30/19 01/27/20 Acetaminophen Tab [Tylenol] 1,000 mg PO Q4H PRN 01/25/20 01/27/20 Calcium Carbonate/Vitamin D3 1 tab PO BID 01/25/20 01/27/20 [Calcium 500-Vit D3 200 Tablet] Cholecalciferol [Vitamin D3 (25 5,000 unit PO DAILY 01/25/20 01/27/20 Mcg = 1000 Iu)] Famotidine 40 mg PO DAILY 01/25/20 01/27/20 Gabapentin [Neurontin] 400 mg PO Q8H 01/25/20 01/27/20 HYDROcodone/APAP 7.5-325MG [[place] 1 tab PO Q6H PRN 01/25/20 01/27/20 7.5-325] Menthol-Zinc Oxide Oint 1 applic TOPICAL DAILY PRN 01/25/20 01/27/20 [Calmoseptine Oint] Oxybutynin Chloride [Ditropan] 5 mg PO DAILY 01/25/20 01/27/20 prednisoLONE ACETATE [Pred Forte 1 drop BOTH EYES DAILY 01/25/20 01/27/20 1%] Warfarin [Coumadin] 7.5 mg PO DAILY@1800 01/27/20 01/27/20 Allergies Allergy/AdvReac Type Severity Reaction Status Date / Time azathioprine [From Imuran] Allergy Vomiting Verified 01/27/20 12:47 codeine Allergy Nausea Verified 01/27/20 12:47 metronidazole [From Flagyl] Allergy Anaphylaxis Verified 01/27/20 12:47 methotrexate AdvReac Unknown Verified 01/27/20 12:47 Review of Systems ROS Other: All systems not noted in ROS Statement are negative. <Latosha Killian - Last Filed: 01/27/20 15:02> ROS Other: All systems not noted in ROS Statement are negative. <Santiago Milan - Last Filed: 01/27/20 16:16> ROS Statement: Those systems with pertinent positive or pertinent negative responses have been documented in the HPI. Past Medical History Past Medical History: COPD, Diabetes Mellitus, Eye Disorder, GERD/Reflux, Hyperlipidemia, Hypertension, Myocardial Infarction ([place]), Pneumonia, Renal Disease, Respiratory Disorder Additional Past Medical History / Comment(s): Pt recently admitted to [facility] on 11/04/19 with possible phlegmon formation at ostomy site essentiall ruled out. 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 Last Myocardial Infarction Date:: 2016 History of Any Multi-Drug Resistant Organisms: None Reported Date of last positivie culture/infection: 2015 MDRO Source:: Stool Past Surgical History: Bowel Resection, Section, Heart Catheterization, Orthopedic Surgery Additional Past Surgical History / Comment(s): 10/21/19 Hartmans procedure/colostomy, exploratory laparoscopies 3-4, right lung resection 2016, L humerus double compound fx repair, colonoscopy, hemorrhoidectomy, lithotripsy x 2. Past Anesthesia/Blood Transfusion Reactions: No Reported Reaction Additional Past Anesthesia/Blood Transfusion Reaction / Comment(s): Pt has received blood in past without reaction. Past Psychological History: Depression Smoking Status: Former smoker Past Alcohol Use History: None Reported Past Drug Use History: Marijuana - Past Family History Mother Family Medical History: Coronary Artery Disease (CAD) Additional Family Medical History / Comment(s): Mother at age 78 with history of coronary artery disease status post multiple stents. Father Family Medical History: Myocardial Infarction ([place]) Additional Family Medical History / Comment(s): Father at age 45 from myocardial infarction. Brother(s) Family Medical History: Hypertension Additional Family Medical History / Comment(s): Patient has 1 brother with hypertension and kidney stones. Sister(s) Family Medical History: No Reported History Additional Family Medical History / Comment(s): Patient has one sister with CHRONIC HYPERCOHDRIA AND GALLSTONES Daughter(s) Family Medical History: No Reported History Additional Family Medical History / Comment(s): Patient has 2 daughters with no major medical problems. <Latosha Killian - Last Filed: 01/27/20 15:02> General Exam Limitations: no limitations General appearance: alert, in no apparent distress Head exam: Present: atraumatic, normocephalic, normal inspection Eye exam: Present: normal appearance, PERRL, EOMI. Absent: scleral icterus, conjunctival injection, periorbital swelling ENT exam: Present: normal exam, mucous membranes moist Neck exam: Present: normal inspection. Absent: tenderness, meningismus, lymphadenopathy Respiratory exam: Present: normal lung sounds bilaterally. Absent: respiratory distress, wheezes, rales, rhonchi, stridor Cardiovascular Exam: Present: regular rate, normal rhythm, normal heart sounds. Absent: systolic murmur, diastolic murmur, rubs, gallop, clicks GI/Abdominal exam: Present: soft, normal bowel sounds, other (Mendez has colostomy site with evidence of formed stool. She is diffuse tenderness). Absent: distended, tenderness, guarding, rebound, rigid Extremities exam: Present: normal inspection, full ROM, normal capillary refill. Absent: tenderness, pedal edema, joint swelling, calf tenderness Back exam: Present: normal inspection Neurological exam: Present: alert Psychiatric exam: Present: normal affect, normal mood Skin exam: Present: warm, dry, intact, normal color. Absent: rash <Latosha Killian - Last Filed: 01/27/20 15:02> - General Exam Comments Initial Comments: There oriented 60-year-old female. Patient appears in moderate discomfort. (Latosha Killian) Course Vital Signs 01/27/20 01/27/20 01/27/20 11:31 12:37 13:00 Temperature 98.7 F Pulse Rate 87 85 Respiratory 18 18 18 Rate Blood Pressure 166/87 146/76 O2 Sat by Pulse 97 96 Oximetry 01/27/20 14:00 Temperature Pulse Rate 90 Respiratory 18 Rate Blood Pressure 164/87 O2 Sat by Pulse 97 Oximetry Medical Decision Making - Lab Data Result diagrams: 01/27/20 13:10 01/27/20 13:10 <Latosha Killian - Last Filed: 01/27/20 15:02> - Lab Data Result diagrams: 01/27/20 13:10 01/27/20 13:10 <Santiago Milan - Last Filed: 01/27/20 16:16> - Medical Decision Making 1-year-old female presents today with abdominal pain nausea vomiting. She has extensive surgical history and recent ileostomy done to rule out lipoma. Patient's labwork was reviewed and unremarkable. She was discharged from our hospital recently yesterday for intractable nausea and vomiting. Patient had CT abdomen and pelvis. This result is pending. Patient's case signed to Dr. Milan at 3:00 (Latosha Killian) CT report obtained from radiologist. Patient reevaluated and resting comfortably in bed, discomfort 4/10 at this time. Abdomen with mild diffuse tenderness. Patient updated on results. Case was discussed with Dr. Ontiveros as well as Dr. Alvarez who both like patient to be transferred. Case was discussed w hodan williamson at [facility] who will accept transfer. Patient updated. (Santiago Milan) - Lab Data Lab Results 01/27/20 01/27/20 01/27/20 Range/Units 12:32 13:10 13:10 WBC 8.5 (3.8-10.6) k/uL RBC 3.56 L (3.80-5.40) m/uL Hgb 10.1 L (11.4-16.0) gm/dL Hct 32.2 L (34.0-46.0) % MCV 90.7 (80.0-100.0) fL MCH 28.4 (25.0-35.0) pg MCHC 31.3 (31.0-37.0) g/dL RDW 16.9 H (11.5-15.5) % Plt Count 301 (150-450) k/uL Neutrophils % 72 % Lymphocytes % 20 % Monocytes % 5 % Eosinophils % 1 % Basophils % 0 % Neutrophils # 6.1 (1.3-7.7) k/uL Lymphocytes # 1.7 (1.0-4.8) k/uL Monocytes # 0.4 (0-1.0) k/uL Eosinophils # 0.1 (0-0.7) k/uL Basophils # 0.0 (0-0.2) k/uL Hypochromasia Moderate Anisocytosis Slight PT 13.9 H (9.0-12.0) sec INR 1.4 H (<1.2) APTT 23.1 (22.0-30.0) sec Sodium (137-145) mmol/L Potassium (3.5-5.1) mmol/L Chloride (98-107) mmol/L Carbon Dioxide (22-30) mmol/L Anion Gap mmol/L BUN (7-17) mg/dL Creatinine (0.52-1.04) mg/dL Est GFR (CKD-EPI)AfAm (>60 ml/min/1.73 sqM) Est GFR (CKD-EPI)NonAf (>60 ml/min/1.73 sqM) Glucose (74-99) mg/dL Plasma Lactic Acid Jacobo (0.7-2.0) mmol/L Calcium (8.4-10.2) mg/dL Total Bilirubin (0.2-1.3) mg/dL AST (14-36) U/L ALT (4-34) U/L Alkaline Phosphatase (38-126) U/L Total Protein (6.3-8.2) g/dL Albumin (3.5-5.0) g/dL Amylase (30-110) U/L Lipase (23-300) U/L Urine Color Yellow Urine Appearance Clear (Clear) Urine pH 6.5 (5.0-8.0) Ur Specific [place] 1.015 (1.001-1.035) Urine Protein Negative (Negative) Urine Glucose (UA) Negative (Negative) Urine Ketones Negative (Negative) Urine Blood Negative (Negative) Urine Nitrite Negative (Negative) Urine Bilirubin Negative (Negative) Urine Urobilinogen <2.0 (<2.0) mg/dL Ur Leukocyte Esterase Negative (Negative) 01/27/20 01/27/20 Range/Units 13:10 13:10 WBC (3.8-10.6) k/uL RBC (3.80-5.40) m/uL Hgb (11.4-16.0) gm/dL Hct (34.0-46.0) % MCV (80.0-100.0) fL MCH (25.0-35.0) pg MCHC (31.0-37.0) g/dL RDW (11.5-15.5) % Plt Count (150-450) k/uL Neutrophils % % Lymphocytes % % Monocytes % % Eosinophils % % Basophils % % Neutrophils # (1.3-7.7) k/uL Lymphocytes # (1.0-4.8) k/uL Monocytes # (0-1.0) k/uL Eosinophils # (0-0.7) k/uL Basophils # (0-0.2) k/uL Hypochromasia Anisocytosis PT (9.0-12.0) sec INR (<1.2) APTT (22.0-30.0) sec Sodium 137 (137-145) mmol/L Potassium 3.7 (3.5-5.1) mmol/L Chloride 106 (98-107) mmol/L Carbon Dioxide 26 (22-30) mmol/L Anion Gap 5 mmol/L BUN 10 (7-17) mg/dL Creatinine 0.57 (0.52-1.04) mg/dL Est GFR (CKD-EPI)AfAm >90 (>60 ml/min/1.73 sqM) Est GFR (CKD-EPI)NonAf >90 (>60 ml/min/1.73 sqM) Glucose 100 H (74-99) mg/dL Plasma Lactic Acid Jacobo 1.3 (0.7-2.0) mmol/L Calcium 8.4 (8.4-10.2) mg/dL Total Bilirubin 0.4 (0.2-1.3) mg/dL AST 37 H (14-36) U/L ALT 18 (4-34) U/L Alkaline Phosphatase 263 H (38-126) U/L Total Protein 5.8 L (6.3-8.2) g/dL Albumin 3.2 L (3.5-5.0) g/dL Amylase 44 (30-110) U/L Lipase 342 H (23-300) U/L Urine Color Urine Appearance (Clear) Urine pH (5.0-8.0) Ur Specific [place] (1.001-1.035) Urine Protein (Negative) Urine Glucose (UA) (Negative) Urine Ketones (Negative) Urine Blood (Negative) Urine Nitrite (Negative) Urine Bilirubin (Negative) Urine Urobilinogen (<2.0) mg/dL Ur Leukocyte Esterase (Negative) 01/27/20 14:25 EKG shows sinus tachycardia nonspecific ST and [place]. Ventricular rate of 105 bpm. Intervals 118 ms. QS duration is 66 most seconds. QT QTc is 350/462 ms. (Latosha Killian) Disposition <Latosha Killian - Last Filed: 01/27/20 15:02> Is patient prescribed a controlled substance at d/c from ED?: No Time of Disposition: 16:15 - Out of Hospital Transfer - Req. Specs Out of Hospital Transfer - Requested Specifics: Other Emergency Center <Santiago Milna - Last Filed: 01/27/20 16:16> Clinical Impression: Colitis, Complication of ostomy Disposition: OTHER INSTITUTION NOT DEFINED Referrals: Connor Alvarez MD [Primary Care Provider] - 1-2 days
[2020-01-27] MEDS ORDERED: MORPHINE SULFATE 4 MG/ML SYRINGE IVP STA ×2 (12:49→17:21)
[2020-01-27] MEDS ORDERED: METOCLOPRAMIDE 5 MG/ML 2 ML VIAL IVP STA ×2 (12:49→17:20)
[2020-01-27 13:28] LABS: Appearance,Urine Clear (Clear); Bilirubin,Urine Negative (Negative); Blood,Urine Negative (Negative); Color,Urine Yellow; Glucose,Urine (UA) Negative (Negative); Ketones,Urine Negative (Negative); Leukocyte Esterase,Urine Negative (Negative); Nitrite,Urine Negative (Negative); PH, Urine 6.5 (5.0-8.0); Protein,Urine Negative (Negative); Specific Gravity,Urine 1.015 (1.001-1.035); Urobilinogen,Urine <2.0 mg/dL (<2.0)
[2020-01-27 13:49] LABS: Anisocytosis Slight; Basophils % (A) 0 %; Eosinophils # (A) 0.1 k/uL (0-0.7); Eosinophils % (A) 1 %; HCT 32.2 % (34.0-46.0); HGB 10.1 gm/dL (11.4-16.0); Hypochromasia Moderate; Lymphocytes # (A) 1.7 k/uL (1.0-4.8); Lymphocytes % (A) 20 %; MCH 28.4 pg (25.0-35.0); MCHC 31.3 g/dL (31.0-37.0); MCV 90.7 fL (80.0-100.0); Monocytes # (A) 0.4 k/uL (0-1.0); Monocytes % (A) 5 %; Neutrophils # (A) 6.1 k/uL (1.3-7.7); Neutrophils % (A) 72 %; Platelet Count 301 k/uL (150-450); RBC 3.56 m/uL (3.80-5.40); RDW 16.9 % (11.5-15.5); WBC 8.5 k/uL (3.8-10.6)
[2020-01-27] MEDS ORDERED: SODIUM CHLORIDE 0.9% 1,000 ML IV SCH (14:00)
[2020-01-27 14:06] LABS: INR 1.4 (<1.2); Partial Thromboplastin Time 23.1 sec (22.0-30.0); Prothrombin Time 13.9 sec (9.0-12.0)
[2020-01-27 14:15] LABS: ALT 18 U/L (4-34); AST 37 U/L (14-36); African American GFR (CKD) >90 (>60 ml/min/1.73 sqM); Albumin 3.2 g/dL (3.5-5.0); Alkaline Phosphatase 263 U/L (38-126); Amylase 44 U/L (30-110); Anion Gap 5 mmol/L; Blood Urea Nitrogen 10 mg/dL (7-17); Calcium 8.4 mg/dL (8.4-10.2); Carbon Dioxide 26 mmol/L (22-30); Chloride 106 mmol/L (98-107); Glucose 100 mg/dL (74-99); Lipase 342 U/L (23-300); Non-African American GFR(CKD) >90 (>60 ml/min/1.73 sqM); Sodium 137 mmol/L (137-145); Total Bilirubin 0.4 mg/dL (0.2-1.3); Total Protein 5.8 g/dL (6.3-8.2)
[2020-01-27 14:17] LABS: Potassium 3.7 mmol/L (3.5-5.1)
--- NOTE | 2020-01-27 15:39 | CT ---
EXAMINATION TYPE: CT abdomen pelvis w con DATE OF EXAM: 01/27/2020 COMPARISON: CT abdomen pelvis 12/30/2019 HISTORY: Abdominal pain CT DLP: 1107.1 mGycm Automated exposure control for dose reduction was used. TECHNIQUE: Helical acquisition of images was performed from the lung bases through the pelvis. CONTRAST: Performed without Oral Contrast and with IV Contrast, patient injected with 100 mL of Isovue 300. FINDINGS: LUNG BASES: Postsurgical changes of the right lung base. No pericardial or pleural effusion. LIVER: Fatty liver. BILIARY SYSTEM: Normal. PANCREAS: Normal. SPLEEN: Normal. ADRENALS: Normal. KIDNEYS: Bilateral nonobstructing renal calculi. Bilateral renal cysts and too small to characterize hypodense lesions. No hydronephrosis bilaterally. BOWEL: There is apparent revision of the left lower quadrant colostomy seen on 12/30/2019 CT comparis on, now with left lower quadrant ileostomy. There is no significant small bowel obstruction leading i nto the left lower quadrant ileostomy. There is history of the Matos's pouch, with likely interval reversal of the colostomy and reanastomosis of the colon and the Matos's pouch.. There is severe co lonic thickening and inflammation of the descending colon redemonstrated, now seen extending to the r ectum. There is likely dehiscence at the anastomosis within the left lower quadrant with gas which is not definitively within a bowel lumen (201:[id number]). PERITONEUM: There is contained free air anterior and superior to the left lower quadrant colonic haleigh stomosis. There is significantly increased mesenteric edema and inflammation versus 12/30/2019, with i nflammation and fluid within the paracolic gutters and presacral space. LYMPH NODES: No lymphadenopathy. PELVIS: Normal urinary bladder and uterus. VASCULATURE: No abdominal aortic aneurysm. MUSCULOSKELETAL: Degenerative changes of the spine. Grade 1 anterolisthesis of L4 on L5 and of L5 on S1. IMPRESSION: 1. Likely interval reversal of left lower quadrant colostomy with reanastomosis with the Matos's po uch, and creation of a left lower quadrant ileostomy versus 12/30/2019 CT. There appears to be dehisce nce of the colostomy and Matos's pouch with focal perforation. No focal drainable fluid collection. 2. Significantly increased inflammation, thickening, and edema of the descending colon and now the re ctum versus 12/30/2019, most likely colitis and proctitis. Diffuse mesenteric edema is also increased. 3. Bilateral nonobstructing renal calculi. 4. Fatty liver. Dr. Cherie Unedrwood discussed findings with Dr. Santiago Milan the phone on 01/27/2020 at 3:29 PM, and re wali were acknowledged.
[2020-01-27] MEDS ORDERED: AMPICILLIN-SULBACTAM 1.5 GM in SODIUM CHLORIDE 0.9% 50 ML IVPB STA (16:15)
[2020-01-27 17:36] VITALS: BP 154/72; PULSE 80
== END 2020-01-27 17:58 | disposition other institution (70) ==
LOC: EC 11:27
DX: K94.19 Other complications of enterostomy (principal); K52.9 Noninfective gastroenteritis and colitis, unspecified; I25.2 Old myocardial infarction; J44.9 Chronic obstructive pulmonary disease, unspecified; I10 Essential (primary) hypertension; K21.9 Gastro-esophageal reflux disease without esophagitis; E11.9 Type 2 diabetes mellitus without complications; E78.5 Hyperlipidemia, unspecified; Z79.01 Long term (current) use of anticoagulants; Z79.51 Long term (current) use of inhaled steroids; Z79.899 Other long term (current) drug therapy; Z88.8 Allergy status to other drugs, medicaments and biological substances; Z88.5 Allergy status to narcotic agent; Z88.1 Allergy status to other antibiotic agents; Z87.442 Personal history of urinary calculi; Y83.8 Other surgical procedures as the cause of abnormal reaction of the patient, or of later complication, without mention of misadventure at the time of the procedure
CPT/HCPCS: 36415; 93005; 80053; 82150; 83605; 83690; 85025; 85610; 85730; 81003; 87040; 74177; 99285; 96365; 96375 ×2; 96376 ×2; 96361 ×3; J2270; J2765; J0295; Q9967

== ENCOUNTER → 2020-02-13 | Day surgery (SDC) | payer BC, OTHER ==
[2020-02-12 13:54] VITALS: BMI 29.9
== END ==
LOC: CATHCVL 11:42
PROVIDERS: ATTEND Internal Medicine Infectious Disease
DX: K94.02 Colostomy infection (principal); E87.1 Hypo-osmolality and hyponatremia; E86.0 Dehydration; J44.9 Chronic obstructive pulmonary disease, unspecified; E27.40 Unspecified adrenocortical insufficiency; M31.30 Wegener's granulomatosis without renal involvement; K21.9 Gastro-esophageal reflux disease without esophagitis; I11.9 Hypertensive heart disease without heart failure; E78.5 Hyperlipidemia, unspecified; F32.9 Major depressive disorder, single episode, unspecified; Z86.718 Personal history of other venous thrombosis and embolism; E11.9 Type 2 diabetes mellitus without complications; I25.2 Old myocardial infarction; G62.9 Polyneuropathy, unspecified; Z87.442 Personal history of urinary calculi; Z87.42 Personal history of other diseases of the female genital tract; Z98.891 History of uterine scar from previous surgery; Z98.890 Other specified postprocedural states; Z87.891 Personal history of nicotine dependence; Z82.49 Family history of ischemic heart disease and other diseases of the circulatory system; Z84.1 Family history of disorders of kidney and ureter; Z83.79 Family history of other diseases of the digestive system; Z79.51 Long term (current) use of inhaled steroids; Z79.52 Long term (current) use of systemic steroids; Z79.899 Other long term (current) drug therapy; Z79.01 Long term (current) use of anticoagulants; Z79.891 Long term (current) use of opiate analgesic; Z88.1 Allergy status to other antibiotic agents; Z88.5 Allergy status to narcotic agent; Z88.8 Allergy status to other drugs, medicaments and biological substances
CPT/HCPCS: 36410; 76937; C1751

== ENCOUNTER 2020-04-20 09:23 | Inpatient (IN) | payer OTHER ==
[2020-04-20] MEDS ORDERED: HYDROmorphone 0.5 MG/0.5 ML SYRINGE IVP STA ×2 (09:47→10:26)
[2020-04-20] MEDS ORDERED: SODIUM CHLORIDE 0.9% 500 ML 500 ML IV STA (09:47)
[2020-04-20] MEDS ORDERED: SODIUM CHLORIDE 0.9% 1,000 ML IV STA (09:47)
[2020-04-20] MEDS ORDERED: ONDANSETRON 4 MG/2 ML VIAL IVP STA (09:47)
[2020-04-20 10:11] LABS: Basophils # (A) 0.1 k/uL (0-0.2); Basophils % (A) 1 %; Eosinophils # (A) 0.2 k/uL (0-0.7); Eosinophils % (A) 1 %; HCT 38.3 % (34.0-46.0); HGB 12.6 gm/dL (11.4-16.0); Lymphocytes # (A) 2.8 k/uL (1.0-4.8); Lymphocytes % (A) 14 %; MCH 27.8 pg (25.0-35.0); MCV 84.3 fL (80.0-100.0); Mean Platelet Volume 6.7; Monocytes # (A) 0.9 k/uL (0-1.0); Monocytes % (A) 5 %; Neutrophils # (A) 15.2 k/uL (1.3-7.7); Neutrophils % (A) 79 %; Platelet Count 609 k/uL (150-450); RBC 4.54 m/uL (3.80-5.40); WBC 19.3 k/uL (3.8-10.6)
--- NOTE | 2020-04-20 10:12 | ED ---
General Adult HPI - General Chief complaint: Abdominal Pain Stated complaint: Post Op - Vomiting Time Seen by Provider: 04/20/20 09:39 Source: patient, RN notes reviewed Mode of arrival: ambulatory Limitations: no limitations - History of Present Illness Initial comments: This a [id number]-year-old female sent emergency Department with chief complaint right lower quadrant abdominal pain, nausea vomiting. Patient states symptoms are over nighttime and have can continue to worsen. Patient states that she did have cataract surgery in the right eye yesterday were Dr. Hart. She had no complications, she's never had any reaction to restart medications or anesthesia in the past like this. Patient denies any fevers or chills no chest pain no change in her chronic shortness of breath. Patient states that nothing is helping her pain in the right side states she's had ileostomy left side secondary to diverticulitis. Patient states that she initially had surgery by Dr. Ontiveros had a revision by another surgeon. Patient denies any specific compla ints was other than decreased output. She states she feels dehydrated. - Related Data Home Medications Medication Instructions Recorded Confirmed Hydrocortisone 15 mg PO QAM 06/06/19 04/20/20 Hydrocortisone [Cortef] 7.5 mg PO HS 06/06/19 04/20/20 Metoprolol Tartrate [Lopressor] 50 mg PO Q12HR 11/04/19 04/20/20 cycloSPORINE 0.05% OPHTH SOLN 1 drop BOTH EYES Q12HR 11/04/19 04/20/20 [Restasis] Metoclopramide [Reglan] 5 mg PO TID 02/12/20 04/20/20 Evolocumab [Repatha Syringe] 140 mg SQ Q14D 04/20/20 04/20/20 Gabapentin 300 mg PO TID 04/20/20 04/20/20 Latanoprost [Xalatan 0.005%] 1 drop BOTH EYES HS 04/20/20 04/20/20 Pantoprazole [Protonix] 40 mg PO DAILY 04/20/20 04/20/20 Rivaroxaban [Xarelto] 20 mg PO HS 04/20/20 04/20/20 [place] 2 tab PO BID 04/20/20 04/20/20 Vascepa 2 gm PO BID 04/20/20 04/20/20 lisinopriL [Zestril] 20 mg PO DAILY 04/20/20 04/20/20 prednisoLONE ACETATE 1% OPHTH 1 drops BOTH EYES DAILY 04/20/20 04/20/20 [Pred Forte 1%] Allergies Allergy/AdvReac Type Severity Reaction Status Date / Time azathioprine [From Imuran] Allergy Vomiting Verified 04/20/20 10:11 codeine Allergy Nausea Verified 04/20/20 10:11 metronidazole [From Flagyl] Allergy Anaphylaxis Verified 04/20/20 10:11 methotrexate AdvReac Unknown Verified 04/20/20 10:11 Review of Systems ROS Statement: Those systems with pertinent positive or pertinent negative responses have been documented in the HPI. ROS Other: All systems not noted in ROS Statement are negative. 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 Last Myocardial Infarction Date:: 2015 History of Any Multi-Drug Resistant Organisms: None Reported Date of last positivie culture/infection: 2014 MDRO Source:: Stool Past Surgical History: Bowel Resection, Section, Heart Catheterization, Orthopedic Surgery Additional Past Surgical History / Comment(s): 10/21/19 Hartmans procedure/colostomy, ILEOSTOMY (DEC 2019), exploratory laparoscopies 3-4, right lung resection 2016, L humerus double compound fx repair, colonoscopy, hemorrhoidectomy, lithotripsy x 2. , 2/3 OF RIGHT LUNG LOBE REMOVED 2016. cataracts Past Anesthesia/Blood Transfusion Reactions: No Reported Reaction, Family History of Problems w/ Anesthesia Additional Past Anesthesia/Blood Transfusion Reaction / Comment(s): Pt has received blood in past without reaction. brother & sister have difficulty coming out of anesthesia. Past Psychological History: Depression Smoking Status: Former smoker Past Alcohol Use History: None Reported Past Drug Use History: Marijuana - Past Family History Mother Family Medical History: Coronary Artery Disease (CAD) Additional Family Medical History / Comment(s): Mother at age 78 with history of coronary artery disease status post multiple stents. Father Family Medical History: Myocardial Infarction (MO) Additional Family Medical History / Comment(s): Father at age 45 from myocardial infarction. Brother(s) Family Medical History: Hypertension Additional Family Medical History / Comment(s): Patient has 1 brother with hypertension and kidney stones. Sister(s) Family Medical History: No Reported History Additional Family Medical History / Comment(s): Patient has one sister with CHRONIC HYPERCOHDRIA AND GALLSTONES Daughter(s) Family Medical History: No Reported History Additional Family Medical History / Comment(s): . General Exam Limitations: no limitations General appearance: alert, in no apparent distress Head exam: Present: atraumatic, normocephalic, normal inspection Eye exam: Present: PERRL, EOMI. Absent: normal appearance (Patch over the right eye), scleral icterus, conjunctival injection, periorbital swelling ENT exam: Present: normal exam, mucous membranes moist Neck exam: Present: normal inspection. Absent: tenderness, meningismus, lymphadenopathy Respiratory exam: Present: normal lung sounds bilaterally. Absent: respiratory distress, wheezes, rales, rhonchi, stridor Cardiovascular Exam: Present: normal rhythm, tachycardia, normal heart sounds. Absent: systolic murmur, diastolic murmur, rubs, gallop, clicks GI/Abdominal exam: Present: soft, tenderness (Moderate right lower quadrant), normal bowel sounds, other (Ostomy is noted). Absent: distended, guarding, rebound, rigid Neurological exam: Present: alert, oriented X3, CN II-XII intact, reflexes normal. Absent: motor sensory deficit Skin exam: Present: warm, dry, intact, normal color. Absent: rash Course Vital Signs 04/20/20 04/20/20 04/20/20 09:35 10:03 10:59 Temperature 99.0 F 99.5 F 99.6 F Pulse Rate 136 H 115 H 112 H Respiratory 18 18 18 Rate Blood Pressure 125/83 127/88 151/98 O2 Sat by Pulse 97 97 96 Oximetry - Reevaluation(s) Reevaluation #1: 04/20/20 10:12 I did has to patient again after receiving the EKG and she states that she had no chest pain yesterday today last night morning time recently. EKG Findings - EKG Comments: EKG Findings:: EKG performed at 10:00 sinus tachycardia with a rate of 119 PR1:30 QRS 64 QT/QTC 360/506 there is noted see depression in V3 through V6. Changes are noted from prior EKG 01/27/2020 Medical Decision Making - Medical Decision Making CT was reviewed no significant changes are some improvement. Patient's EKG did have some changes with an elevated troponin she has no current went to chest pain though patient will be admitted for NSTEMI. Patient lipase is elevated consistent with acute pancreatitis. Patient case discussed with her will be admitted with cardiology evaluation. - Lab Data Result diagrams: 04/20/20 09:53 04/20/20 09:53 Lab Results 04/20/20 04/20/20 04/20/20 Range/Units 09:53 09:53 09:53 WBC 19.3 H (3.8-10.6) k/uL RBC 4.54 (3.80-5.40) m/uL Hgb 12.6 (11.4-16.0) gm/dL Hct 38.3 (34.0-46.0) % MCV 84.3 (80.0-100.0) fL MCH 27.8 (25.0-35.0) pg MCHC 33.0 (31.0-37.0) g/dL RDW 15.0 (11.5-15.5) % Plt Count 609 H (150-450) k/uL MPV 6.7 Neutrophils % 79 % Lymphocytes % 14 % Monocytes % 5 % Eosinophils % 1 % Basophils % 1 % Neutrophils # 15.2 H (1.3-7.7) k/uL Lymphocytes # 2.8 (1.0-4.8) k/uL Monocytes # 0.9 (0-1.0) k/uL Eosinophils # 0.2 (0-0.7) k/uL Basophils # 0.1 (0-0.2) k/uL Sodium 138 (137-145) mmol/L Potassium 3.5 (3.5-5.1) mmol/L Chloride 102 (98-107) mmol/L Carbon Dioxide 22 (22-30) mmol/L Anion Gap 14 mmol/L BUN 11 (7-17) mg/dL Creatinine 0.85 (0.52-1.04) mg/dL Est GFR (CKD-EPI)AfAm 85 (>60 ml/min/1.73 sqM) Est GFR (CKD-EPI)NonAf 74 (>60 ml/min/1.73 sqM) Glucose 165 H (74-99) mg/dL Plasma Lactic Acid Jacobo 2.3 H* (0.7-2.0) mmol/L Calcium 9.7 (8.4-10.2) mg/dL Total Bilirubin 0.7 (0.2-1.3) mg/dL AST 23 (14-36) U/L ALT 20 (4-34) U/L Alkaline Phosphatase 81 (38-126) U/L Troponin I (0.000-0.034) ng/mL Total Protein 7.6 (6.3-8.2) g/dL Albumin 4.7 (3.5-5.0) g/dL Lipase 961 H (23-300) U/L 04/20/20 Range/Units 10:08 WBC (3.8-10.6) k/uL RBC (3.80-5.40) m/uL Hgb (11.4-16.0) gm/dL Hct (34.0-46.0) % MCV (80.0-100.0) fL MCH (25.0-35.0) pg MCHC (31.0-37.0) g/dL RDW (11.5-15.5) % Plt Count (150-450) k/uL MPV Neutrophils % % Lymphocytes % % Monocytes % % Eosinophils % % Basophils % % Neutrophils # (1.3-7.7) k/uL Lymphocytes # (1.0-4.8) k/uL Monocytes # (0-1.0) k/uL Eosinophils # (0-0.7) k/uL Basophils # (0-0.2) k/uL Sodium (137-145) mmol/L Potassium (3.5-5.1) mmol/L Chloride (98-107) mmol/L Carbon Dioxide (22-30) mmol/L Anion Gap mmol/L BUN (7-17) mg/dL Creatinine (0.52-1.04) mg/dL Est GFR (CKD-EPI)AfAm (>60 ml/min/1.73 sqM) Est GFR (CKD-EPI)NonAf (>60 ml/min/1.73 sqM) Glucose (74-99) mg/dL Plasma Lactic Acid Jacobo (0.7-2.0) mmol/L Calcium (8.4-10.2) mg/dL Total Bilirubin (0.2-1.3) mg/dL AST (14-36) U/L ALT (4-34) U/L Alkaline Phosphatase (38-126) U/L Troponin I 0.980 H* (0.000-0.034) ng/mL Total Protein (6.3-8.2) g/dL Albumin (3.5-5.0) g/dL Lipase (23-300) U/L Critical Care Time Critical Care Time: Yes Total Critical Care Time: 35 Critical Care Time: Total 35 minutes of critical care time were used to initially evaluated patient, if you press buccal history ordering labs EKG abdominal CT. They should laboratory reveals leukocytosis, lactic acidosis and elevated lipase patient has mild pancreatitisand change in EKG I did have discussion with the radiologist regarding her started they're concerned with her barium enema recently that he wouldn't skew CT results, chest was held at this point. Patient troponin is eliezer vated at 0.98 patient has no chest pain patient we placed on heparin, will be admitted for an STEMI. Disposition Clinical Impression: Acute pancreatitis, NSTEMI (non-ST elevated myocardial infarction) Disposition: ADMITTED IP TO THIS [facility] Condition: Serious Referrals: Connor Alvarez MD [Primary Care Provider] - 1-2 days
[2020-04-20 10:23] LABS: Albumin 4.7 g/dL (3.5-5.0); Calcium 9.7 mg/dL (8.4-10.2); Potassium 3.5 mmol/L (3.5-5.1); Total Bilirubin 0.7 mg/dL (0.2-1.3); Total Protein 7.6 g/dL (6.3-8.2)
[2020-04-20] MEDS ORDERED: ACETAMINOPHEN TAB 500 MG TAB PO STA (11:19)
--- NOTE | 2020-04-20 11:27 | CT ---
EXAMINATION TYPE: CT abdomen pelvis wo con DATE OF EXAM: 04/20/2020 COMPARISON: 01/27/2020 HISTORY: 60-year-old female RLQ pain. Recent barium enema at an outside facility. CT DLP: 601.3 mGycm. Automated exposure control for dose reduction was used. TECHNIQUE: Contiguous axial scanning of the abdomen and pelvis without IV contrast. Coronal and sagit raissa reconstructions performed. FINDINGS: Heart normal size without pericardial effusion. Either some scarring or postsurgical change at the ri ght base with slight volume loss. No pleural effusion. Small hiatal hernia. Noncontrast appearance of the, gallbladder, adrenal glands, spleen, and pancreas are no gross abnorma lity. Numerous bilateral renal calculi are demonstrated measuring up to 4 mm on the right and 5 mm on the l eft. No hydronephrosis. Mild atherosclerotic calcifications infrarenal abdominal aorta. Retained barium contrast material to the colon. No visualized extraluminal contrast material. There i s some thickening and focal narrowing at the level of the distal sigmoid anastomosis. Adjacent small bowel and fundus of the ureter gland with the colon at this level, refer to axial image 63 and 62. No extraluminal air or obvious extraluminal fluid collection is identified. The inflammatory changes seen on 01/27/2020 have significantly improved. Redemonstrated left midabdominal enterostomy. No dilated small bowel or free air. Redemonstrated para stomal hernia containing nonobstructed small bowel loops and mesenteric fat measuring 8.0 cm wide tra verses 5.6 cm, previously. No abdominal or pelvic lymphadenopathy seen. Mild circumferential bladder wall thickening. Multiple pelvic phleboliths. Unable to discretely ident arcelia the ovaries. Residual mild to moderate presacral edema. Significantly improved from 01/27/2020. Small fatty umbilical hernia. Bones: Hypertrophic facet arthropathy mid to lower lumbar spine with trace grade 1 anterolisthesis at L4-L5 and L5-S1. IMPRESSION: 1. Retained contrast material throughout the colon. The extensive inflammatory changes seen on 2019 have significantly improved. No extraluminal contrast material is identified to suggest a persis tent leak/perforation. However, there is focal narrowing at the distal sigmoid anastomosis. An anasto motic stenosis here is not excluded. 2. Mild residual strandy inflammation or scarring remains in the posterior aspect of the pelvis and presacral region. Note that the barium contrast did not cause as much artifact as was anticipated. Th ere is limitation on this study due to lack of IV and oral contrast especially at the level of the an astomosis where there is soft tissue density crowding with the uterine fundus and apposing small neno l loops. 3. Left mid abdominal ileostomy. There is an associated parastomal hernia which has increased in siz e from 01/27/2020 (currently measuring 8.0 cm versus 5.6 cm, previously). It contains nonobstructed sm all bowel loops and mesenteric fat. 4. However, there is no evidence of bowel obstruction, free fluid, or free air. 5. Moderate gastric fold thickening. Correlate for gastritis. Small hiatal hernia. Bilateral nephrol ithiasis measuring up to 5 mm. 6. Mild circumferential bladder wall thickening. Correlate to exclude cystitis.
[2020-04-20] MEDS ORDERED: HEPARIN SODIUM,PORCINE 5,000 UNIT/ML 1 ML VIAL IV ONE (12:02)
[2020-04-20] MEDS ORDERED: NITROGLYCERIN SL TABS 0.4 MG TAB SUBLINGUAL PRN (12:08)
[2020-04-20] MEDS ORDERED: ASPIRIN 81 MG PO STA (12:08)
[2020-04-20] MEDS ORDERED: ONDANSETRON 4 MG/2 ML VIAL IVP PRN (12:11)
[2020-04-20 12:30] LABS: Partial Thromboplastin Time 26.9 sec (22.0-30.0); Prothrombin Time 10.4 sec (9.0-12.0)
[2020-04-20] MEDS: SODIUM CHLORIDE 0.9% 1,000 ML IV SCH (12:31)
[2020-04-20] MEDS: HEPARIN SOD,PORK IN 0.45% NACL 25,000 UNIT in 0.45% NACL 1 250ML.BAG IV SCH (12:32)
[2020-04-20 12:34] LABS: Appearance,Urine Clear (Clear); Bilirubin,Urine Negative (Negative); Blood,Urine Negative (Negative); Color,Urine Yellow; Glucose,Urine (UA) Negative (Negative); Ketones,Urine Negative (Negative); Leukocyte Esterase,Urine Negative (Negative); Mucus,Urine Few /hpf; Nitrite,Urine Negative (Negative); Protein,Urine 1+ (Negative); RBC,Urine 1 /hpf (0-5); Specific Gravity,Urine 1.014 (1.001-1.035); Squamous Epithelial Cell,Urine <1 /hpf (0-4); Urobilinogen,Urine <2.0 mg/dL (<2.0); WBC,Urine 3 /hpf (0-5)
--- NOTE | 2020-04-20 15:01 | P.CRDCN ---
History of Present Illness History of present illness: HISTORY OF PRESENTING ILLNESS This is a pleasant 60-year-old female past medical history significant for Takotsubo syndrome 2016 with normal coronaries per the patient, hypertension, diabetes mellitus, dyslipidemia, Sudha's granulomatosis, history of DVT maintained on long-term anticoagulation, vasculitis, COPD, diverticulitis with perforation and peritonitis status post colostomy creation and former nicotine dependence. 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 She did undergo cardiac catheterization while living in [place] in 2016 that she states was normal. We have been asked to see in consultation for elevated troponin. She underwent cataract surgery yesterday. She states she woke up from anesthesia and was profusely vomiting. She was given some sort of shot and sent home. She states she went home and continued to vomit for the next 12 hours. Then this morning she developed discomfort in the right lower quadrant of her abdomen prompting her to come to the hospital for further evaluation. She denies ever having had any symptoms of chest pain, shortness of breath, dizziness or palpitations. DIAGNOSTICS EKG reveals sinus tachycardia heart rate of [address] depression in the lateral leads. CT of the abdomen and pelvis reveals extensive inflammatory changes significantly improved since previous study in January 2020, no extraluminal contrast material is identified to suggest any persistent leak or perforation, focal narrowing at the distal sigmoid anastomosis, left mid abdominal ileostomy with associated parastomal hernia increased in size from January a contains nonobstructed small bowel loops and mesenteric fat and moderate gastric fold thickening. Laboratory reviewed, CBC 19.3, hemoglobin 12.6, platelets 609, sodium 138, potassium 3.5, creatinine 0.85, because it on admission 2.3 after fluid hydration 1.0, troponin 0.98 and 0.977. Current cardiac medications include lisinopril 20 mg daily, Xarelto 20 mg daily, Lopressor 50 mg twice a day, repatha 140 mg every 2 weeks and vascepa 2 gm BID. REVIEW OF SYSTEMS At the time of my exam: CONSTITUTIONAL: Denies fever or chills. CARDIOVASCULAR: Denies chest pain, shortness of breath, orthopnea, PND or palpitations. RESPIRATORY: Denies cough. GASTROINTESTINAL: Denies abdominal pain, diarrhea, constipation, nausea or vomiting. MUSCULOSKELETAL: Denies myalgias. NEUROLOGIC: Denies numbness, tingling, headacbe or weakness. ENDOCRINE: Denies fatigue, weight change, polydipsia or polyurina. GENITOURINARY: Denies burning, hematuria or urgency with micturation. HEMATOLOGIC: Denies history of anemia or bleeding. PHYSICAL EXAMINATION Blood pressure 110/69 heart rate 99 afebrile and maintaining oxygen saturation on where. CONSTITUTIONAL: No apparent distress. HEENT: Head is normocephalic. Pupils are equal, round. Sclerae anicteric. Mucous membranes of the mouth are moist. No JVD. No carotid bruit. CHEST EXAMINATION: Lungs are clear to auscultation. No chest wall tenderness is noted on palpation or with deep breathing. HEART EXAMINATION: Regular rate and rhythm. S1, S2 heard. No murmurs, gallops or rub. ABDOMEN: Soft, nontender. Positive bowel sounds. Ileostomy in place to left side with some swelling noted around the site. EXTREMITIES: 1+ peripheral pulses, no lower extremity edema and no calf tenderness. NEUROLOGIC EXAMINATION: Patient is awake, alert and oriented x3. ASSESSMENT NSTEMI Pancreatitis Abdominal pain Leukocytosis Lactic acidosis History of Takotsubo Hypertension Dyslipidemia Diabetes mellitus History of DVT maintained on Xarelto Vasculitis Sudha's granulomatosis COPD Former nicotine dependence PLAN Continue IV heparin infusion. Obtain 2D echocardiogram and doppler study to assess cardiac structure and function. Continue aspirin, beta blockers, lisinopril and dyslipidemics. Obtain report from previous catheterization performed in [place] in 2016. Repeat EKG in the morning. NPO after midnight tonight, further decision will be made in the morning regarding further cardiac testing. Thank you kindly for this consultation. Nurse Practitioner note has been reviewed, I agree with a documented findings and plan of care. Patient was seen and examined. Past Medical History Past Medical History: COPD, Diabetes Mellitus, Deep Vein Thrombosis (DVT), Eye Disorder, GERD/Reflux, Hyperlipidemia, Hypertension, Myocardial Infarction (NM), Pneumonia, Renal Disease, Respiratory Disorder, Vascular Disorder Additional Past Medical History / Comment(s): R lung mid and lower lobe resection d/t infection, bronchitis, 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-off schedule d/t other health problems, 09/2019 diverticulitis with perforation/peritonitis and had colostomy then ileostomy, DVT R arm, pancreatitis, silent [place]/elevated enzymes in 2016, "borderline diabetes" with elevated sugars when steroids are increased, neuropathy bilateral hands and at umbilicus after abdominal surgery, adrenal insufficiency, past and current nephrolithiasis, UTIs, past endometriosis/ovarian cyst, pt stats lately she has been losing her balance. Last Myocardial Infarction Date:: 2015 History of Any Multi-Drug Resistant Organisms: None Reported Date of last positivie culture/infection: 2014 MDRO Source:: Stool Past Surgical History: Bowel Resection, Section, Heart Catheterization, Orthopedic Surgery Additional Past Surgical History / Comment(s): 10/21/19 Hartmans procedure/colostomy, ILEOSTOMY (DEC 2019), exploratory laparoscopies 3-4, right lung resection 2016, L humerus double compound fx repair, colonoscopy, hemorrhoidectomy, lithotripsy x 2, 2015 R lung mid and lower lobectomy, R eye cataract removed 04/19/20. Past Anesthesia/Blood Transfusion Reactions: No Reported Reaction, Family History of Problems w/ Anesthesia Additional Past Anesthesia/Blood Transfusion Reaction / Comment(s): Pt has received blood in past without reaction. brother & sister have difficulty coming out of anesthesia. Past Psychological History: Depression Additional Psychological History / Comment(s): Pt resides alone with her cat in an apartment. She is independent. She states d/t recent colostomy/health issues, she has had an increase in depression but denies thoughts/plans of suicide. Pt is independent. Smoking Status: Former smoker Past Alcohol Use History: None Reported Additional Past Alcohol Use History / Comment(s): Pt started smoking in 1987 and quit in 2016 Past Drug Use History: Marijuana Additional Drug Use History / Comment(s): hx of occasional marijuana use for nausea - Past Family History Mother Family Medical History: Coronary Artery Disease (CAD) Additional Family Medical History / Comment(s): Mother at age 78 with history of coronary artery disease status post multiple stents. Father Family Medical History: Myocardial Infarction (NM) Additional Family Medical History / Comment(s): Father at age 45 from myocardial infarction. Brother(s) Family Medical History: Hypertension Additional Family Medical History / Comment(s): Patient has 1 brother with hypertension and kidney stones. Sister(s) Family Medical History: No Reported History Additional Family Medical History / Comment(s): Patient has one sister with CHRONIC HYPERCOHDRIA AND GALLSTONES Daughter(s) Family Medical History: No Reported History Additional Family Medical History / Comment(s): . Medications and Allergies Home Medications Medication Instructions Recorded Confirmed Type Hydrocortisone 15 mg PO QAM 06/06/19 04/20/20 History Hydrocortisone [Cortef] 7.5 mg PO HS 06/06/19 04/20/20 History Metoprolol Tartrate [Lopressor] 50 mg PO Q12HR 11/04/19 04/20/20 History cycloSPORINE 0.05% OPHTH SOLN 1 drop BOTH EYES Q12HR 11/04/19 04/20/20 History [Restasis] Metoclopramide [Reglan] 5 mg PO TID 02/12/20 04/20/20 History Evolocumab [Repatha Syringe] 140 mg SQ Q14D 04/20/20 04/20/20 History Gabapentin 300 mg PO TID 04/20/20 04/20/20 History Latanoprost [Xalatan 0.005%] 1 drop BOTH EYES HS 04/20/20 04/20/20 History Pantoprazole [Protonix] 40 mg PO DAILY 04/20/20 04/20/20 History Rivaroxaban [Xarelto] 20 mg PO HS 04/20/20 04/20/20 History [place] 2 tab PO BID 04/20/20 04/20/20 History Vascepa 2 gm PO BID 04/20/20 04/20/20 History lisinopriL [Zestril] 20 mg PO DAILY 04/20/20 04/20/20 History prednisoLONE ACETATE 1% OPHTH 1 drops BOTH EYES DAILY 04/20/20 04/20/20 History [Pred Forte 1%] Allergies Allergy/AdvReac Type Severity Reaction Status Date / Time azathioprine [From Imuran] Allergy Vomiting Verified 04/20/20 10:11 codeine Allergy Nausea Verified 04/20/20 10:11 metronidazole [From Flagyl] Allergy Anaphylaxis Verified 04/20/20 10:11 methotrexate AdvReac Unknown Verified 04/20/20 10:11 Physical Exam Vitals: Vital Signs Temp Pulse Pulse Resp BP BP Pulse Ox 04/20/20 14:27 98.4 F 99 16 110/69 95 04/20/20 13:57 98.4 F 98 18 113/63 97 04/20/20 12:30 98.7 F 108 H 18 142/93 96 04/20/20 10:59 99.6 F 112 H 18 151/98 96 04/20/20 10:03 99.5 F 115 H 18 127/88 97 04/20/20 09:35 99.0 F 136 H 18 125/83 97 Intake and Output 04/19/20 04/20/20 04/20/20 22:59 06:59 14:59 Other: Weight 77.111 kg Results 04/20/20 09:53 04/20/20 09:53 Cardiac Enzymes 04/20/20 04/20/20 04/20/20 Range/Units 09:53 10:08 12:42 AST 23 (14-36) U/L Troponin I 0.980 H* 0.977 H* (0.000-0.034) ng/mL Coagulation 04/20/20 Range/Units 10:08 PT 10.4 (9.0-12.0) sec APTT 26.9 (22.0-30.0) sec CBC 04/20/20 Range/Units 09:53 WBC 19.3 H (3.8-10.6) k/uL RBC 4.54 (3.80-5.40) m/uL Hgb 12.6 (11.4-16.0) gm/dL Hct 38.3 (34.0-46.0) % Plt Count 609 H (150-450) k/uL Comprehensive Metabolic Panel 04/20/20 Range/Units 09:53 Sodium 138 (137-145) mmol/L Potassium 3.5 (3.5-5.1) mmol/L Chloride 102 (98-107) mmol/L Carbon Dioxide 22 (22-30) mmol/L BUN 11 (7-17) mg/dL Creatinine 0.85 (0.52-1.04) mg/dL Glucose 165 H (74-99) mg/dL Calcium 9.7 (8.4-10.2) mg/dL AST 23 (14-36) U/L ALT 20 (4-34) U/L Alkaline Phosphatase 81 (38-126) U/L Total Protein 7.6 (6.3-8.2) g/dL Albumin 4.7 (3.5-5.0) g/dL Current Medications Generic Name Dose Route Start Last Admin Trade Name Freq PRN Reason Stop Dose Admin Aspirin 325 mg 04/21/20 09:00 Aspirin 325 Mg Tab PO DAILY [facility] Cyclosporine 1 drops 04/20/20 21:00 Cyclosporine 0.05% Ophth 0.4 Ml Droperette BOTH EYES Q12HR [facility] Gabapentin 300 mg 04/20/20 16:00 Gabapentin 300 Mg Cap PO TID [facility] Heparin Sodium (Porcine) 0 unit 04/20/20 12:02 Heparin Sodium,Porcine 5,000 Unit/Ml 1 Ml Vial IV PER PROTOCOL PRN Low PTT Protocol Hydrocortisone 7.5 mg 04/20/20 21:00 Hydrocortisone 10 Mg Tab PO HS [facility] Hydrocortisone 15 mg 04/21/20 09:00 Hydrocortisone 10 Mg Tab PO QAM [facility] Hydromorphone HCl 0.5 mg 04/20/20 12:10 Hydromorphone 0.5 Mg/0.5 Ml Syringe IVP Q4HR PRN Pain Heparin Sodium/Sodium Chloride 250 mls @ 9.253 mls/hr 04/20/20 12:15 04/20/20 12:32 25,000 unit/ Sodium Chloride IV 12 units/kg/hr .Q24H MICHAEL 9.253 mls/hr Administration Protocol 12 UNITS/KG/HR Sodium Chloride 1,000 mls @ 75 mls/hr 04/20/20 12:15 04/20/20 12:31 Saline 0.9% IV 75 mls/hr .[id number] [facility] Administration Latanoprost 1 drops 04/20/20 21:00 Latanoprost 0.005% Ophth Drops 2.5 Ml Btl BOTH EYES HS [facility] Lisinopril 20 mg 04/21/20 09:00 Lisinopril 20 Mg Tab PO DAILY [facility] Metoclopramide HCl 5 mg 04/20/20 16:00 Metoclopramide 5 Mg Tab PO TID [facility] Metoprolol Tartrate 50 mg 04/20/20 21:00 Metoprolol Tartrate 50 Mg Tab PO Q12HR [facility] Nitroglycerin 0.4 mg 04/20/20 12:08 Nitroglycerin Sl Tabs 0.4 Mg Tab SUBLINGUAL Q5M PRN Chest Pain Ondansetron HCl 4 mg 04/20/20 12:11 Ondansetron 4 Mg/2 Ml Vial IVP Q6HR PRN Nausea And Vomiting Pantoprazole Sodium 40 mg 04/21/20 09:00 Pantoprazole 40 Mg Tablet PO DAILY [facility] Prednisolone Acetate 1 drops 04/21/20 09:00 Prednisolone Acetate 1% Ophth Drops 5 Ml Btl BOTH EYES DAILY MICHAEL Intake and Output 04/19/20 04/20/20 04/20/20 22:59 06:59 14:59 Other: Weight 77.111 kg Patient Weight 04/21/20 06:59 Weight 77.111 kg 04/20/20 09:53 04/20/20 09:53
[2020-04-20] MEDS: METOCLOPRAMIDE 5 MG TAB PO SCH ×2 (15:25→20:09)
[2020-04-20] MEDS: GABAPENTIN 300 MG CAP PO SCH ×2 (15:25→20:09)
[2020-04-20] MEDS: HYDROmorphone 0.5 MG/0.5 ML SYRINGE IVP PRN (15:26)
[2020-04-20] MEDS: traMADol 50 MG TAB PO PRN (17:26)
[2020-04-20] MEDS: HEPARIN SODIUM,PORCINE 5,000 UNIT/ML 1 ML VIAL IV PRN (19:55)
[2020-04-20] MEDS: cycloSPORINE 0.05% OPHTH 0.4 ML DROPERETTE BOTH EYES SCH (20:08)
[2020-04-20] MEDS: LATANOPROST 0.005% OPHTH DROPS 2.5 ML BTL BOTH EYES SCH (20:08)
[2020-04-20] MEDS: HYDROCORTISONE 10 MG TAB PO SCH (20:09)
[2020-04-20] MEDS: METOPROLOL TARTRATE 50 MG TAB PO SCH (20:09)
[2020-04-20] MEDS ORDERED: HYDROCORTISONE 10 MG TAB PO SCH (21:00)
[2020-04-21] MEDS: HYDROmorphone 0.5 MG/0.5 ML SYRINGE IVP PRN (00:37)
[2020-04-21] MEDS ORDERED: ACETAMINOPHEN TAB 325 MG TAB PO PRN (00:54)
[2020-04-21 02:35] LABS: Cholesterol 126 mg/dL (<200); HDL Cholesterol 51 mg/dL (40-60); LDL Cholesterol,Calculated 32 mg/dL (0-99); Triglycerides 217 mg/dL (<150)
[2020-04-21] MEDS: HEPARIN SODIUM,PORCINE 5,000 UNIT/ML 1 ML VIAL IV PRN (02:41)
[2020-04-21] MEDS: SODIUM CHLORIDE 0.9% 1,000 ML IV SCH ×2 (02:42→18:11)
[2020-04-21] MEDS: traMADol 50 MG TAB PO PRN (04:45)
--- NOTE | 2020-04-21 08:24 | PN ---
PROGRESS NOTE Mrs. Laquita Carlisle is a 60-year-old lady who was evaluated yesterday by myself and my nurse practitioner. She came in with mostly abdominal discomfort and there was a question of pancreatitis, but troponin was elevated. She has a history of takotsubo as well and coronary angiography according to the patient was unremarkable in 2016. Last night she developed fever up to almost 101 and received some Tylenol and she feels better this morning. She still has abdominal pain. Her vomiting has stopped. She has no chest discomfort. Troponin was 0.9, 0.9 and 0.6. Echo was performed late yesterday, which I will review. She has fever and also complains of body aches and abdominal pain. She has no cough. I am recommending that we will obtain 2 sets of blood cultures. The coronavirus antigen rapid study and also check a D-dimer, ferritin and LDH levels. We want to rule out any coronavirus infection and also do some blood cultures. I do not think the troponin elevation is a primary cardiac problem, but however I will review echo, continue heparin for now and then make further recommendations. PHYSICAL EXAMINATION: Physical examination revealed a blood pressure of 118/70, pulse rate 86 per minute. HEENT: Unremarkable. Fundus was not examined. Neck is supple. No JVD. S1, S2 heard normally. No significant murmurs. Abdomen is soft. There is an ileostomy bag. There is mild tenderness. Lower extremities reveal diminished pulses. Central nervous system is normal. IMPRESSION: 1. Rule out any sepsis or coronavirus infection type picture. The patient has elevated white count, abdominal pain, and also an elevated troponin. 2. Troponin elevation is probably not a primary cardiac issue. We will continue heparin, beta blockers. I will review echocardiogram, and also seek input from surgery regarding her abdominal pain. MMODL / IJN: [id number] /
[2020-04-21] MEDS: HYDROCORTISONE 10 MG TAB PO SCH ×2 (08:48→21:33)
[2020-04-21] MEDS: METOPROLOL TARTRATE 50 MG TAB PO SCH ×2 (08:48→21:32)
[2020-04-21] MEDS: lisinopriL 20 MG TAB PO SCH (08:48)
[2020-04-21] MEDS: GABAPENTIN 300 MG CAP PO SCH ×3 (08:48→21:33)
[2020-04-21] MEDS: ASPIRIN 81 MG PO SCH (08:48)
[2020-04-21] MEDS: METOCLOPRAMIDE 5 MG TAB PO SCH ×3 (08:48→21:33)
[2020-04-21] MEDS: cycloSPORINE 0.05% OPHTH 0.4 ML DROPERETTE BOTH EYES SCH ×2 (08:49→21:32)
[2020-04-21] MEDS: prednisoLONE ACETATE 1% OPHTH DROPS 5 ML BTL BOTH EYES SCH (08:51)
[2020-04-21] MEDS: PANTOPRAZOLE 40 MG TABLET PO SCH (08:55)
[2020-04-21] MEDS ORDERED: HYDROCORTISONE 10 MG TAB PO SCH (09:00)
[2020-04-21] MEDS ORDERED: ASPIRIN 325 MG TAB PO SCH (09:00)
[2020-04-21 09:04] LABS: D-Dimer 0.34 mg/L FEU (<0.60); Partial Thromboplastin Time 51.3 sec (22.0-30.0)
[2020-04-21] MEDS ORDERED: HYDROmorphone 1 MG/ML 1 ML SYRINGE IM PRN (09:09)
[2020-04-21] MEDS: HEPARIN SOD,PORK IN 0.45% NACL 25,000 UNIT in 0.45% NACL 1 250ML.BAG IV SCH (09:57)
--- NOTE | 2020-04-21 10:52 | ECHOF ---
Referral Reason:NSTEMI MEASUREMENTS -------- HEIGHT: 152.4 cm WEIGHT: 77.1 kg BP: 151/98 IVSd: 1.2 cm (0.6 - 1.1) LVIDd: 3.1 cm (3.9 - 5.3) LVPWd: 1.4 cm (0.6 - 1.1) IVSs: 1.3 cm LVIDs: 2.5 cm LVPWs: 1.4 cm LAESV Index (A-L): 15.29 ml/m Ao Diam: 3.3 cm (2.0 - 3.7) AV Cusp: 1.6 cm (1.5 - 2.6) LA Diam: 3.7 cm (2.7 - 3.8) MV EXCURSION: 20.347 mm (> 18.000) MV EF SLOPE: 73 mm/s (70 - 150) EPSS: 1.6 cm MV E Rich: 0.64 m/s MV DecT: 106 ms MV A Rich: 1.06 m/s MV E/A Ratio: 0.61 RAP: 5.00 mmHg RVSP: 26.30 mmHg FINDINGS -------- Sinus rhythm. This was a technically adequate study. The left ventricular size is normal. There is mild concentric left ventricular hypertrophy. Overa ll left ventricular systolic function is low-normal with, an EF between 50 - 55 %. The diastolic fi lling pattern indicates impaired relaxation 20.14. Basal inferior LV wall motion is hypokinetic. Basal inferoseptal LV wall motion is hypokinetic. The right ventricle is normal in size. Normal LA size by volume 22+/-6 ml/m2. The right atrial size is normal. Interatrial and interventricular septum intact. The aortic valve is trileaflet, and appears structurally normal. No aortic stenosis or regurgitation. The mitral valve is normal. Mild mitral regurgitation is present. The tricuspid valve appears structurally normal. Trace tricuspid regurgitation present. Right fatuma tricular systolic pressure is normal at < 35 mmHg. The right ventricular systolic pressure, as greg ured by Doppler, is 26.30mmHg. There is no pulmonic regurgitation present. The aortic root size is normal. IVC Not well visulized. There is no pericardial effusion. CONCLUSIONS -------- 1. There is mild concentric left ventricular hypertrophy. 2. Overall left ventricular systolic function is low-normal with, an EF between 50 - 55 %. 3. Basal inferior LV wall motion is hypokinetic. 4. Basal inferoseptal LV wall motion is hypokinetic. 5. The aortic valve is trileaflet, and appears structurally normal. No aortic stenosis or regurgitati on. 6. Mild mitral regurgitation is present. 7. Trace tricuspid regurgitation present. BOW MAKING MACHINE OPERATOR: Adrianna Maxwell RDCS
[2020-04-21 14:42] LABS: Ferritin 56.1 ng/mL (10.0-291.0)
--- NOTE | 2020-04-21 14:56 | P.GSCN ---
History of Present Illness Consult date: 04/21/20 History of present illness: 60-year-old female that is well-known to me presents to the emergency department with complaints of abdominal pain. States that abdominal pain is mainly on the right side of her abdomen. She is known to me due to history of her previous diverticulitis requiring a Matos's procedure. She did have wound healing issues, likely secondary to her history of Sudha's granulomatosis along with vasculitis and chronic steroid use. She then followed up with colorectal surgery at [facility] for further work-up after my referral. She did undergo a colostomy reversal with a diverting loop ostomy at that time. She has developed somewhat of a parastomal hernia that is being evaluated by the colorectal surgeon at [facility]. She states that since her arrival, her abdominal pain has greatly decreased. She also was found to have elevated troponin and is being followed by cardiology. She also was noted to have underwent cataract surgery 2 days prior and 1 day prior to her arrival to the emergency department. She does state that she had excessive amount of vomiting after the cataract procedure. Review of Systems All systems: negative Past Medical History Past Medical History: COPD, Diabetes Mellitus, Deep Vein Thrombosis (DVT), Eye Disorder, GERD/Reflux, Hyperlipidemia, Hypertension, Myocardial Infarction ([place]), Pneumonia, Renal Disease, Respiratory Disorder, Vascular Disorder Additional Past Medical History / Comment(s): R lung mid and lower lobe resection d/t infection, bronchitis, 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-off schedule d/t other health problems, 09/2019 diverticulitis with perforation/peritonitis and had colostomy then ileostomy, DVT R arm, pancreatitis, silent [place]/elevated enzymes in 2015, "borderline diabetes" with elevated sugars when steroids are increased, neuropathy bilateral hands and at umbilicus after abdominal surgery, adrenal insufficiency, past and current nephrolithiasis, UTIs, past endometriosis/ovarian cyst, pt stats lately she has been losing her balance. Last Myocardial Infarction Date:: 2015 History of Any Multi-Drug Resistant Organisms: None Reported Year Discovered:: 2014 MDRO Source:: Stool Past Surgical History: Bowel Resection, Section, Heart Catheterization, Orthopedic Surgery Additional Past Surgical History / Comment(s): 10/21/19 Hartmans procedure/colostomy, ILEOSTOMY (DEC 2019), exploratory laparoscopies 3-4, right lung resection 2016, L humerus double compound fx repair, colonoscopy, hemorrhoidectomy, lithotripsy x 2, 2016 R lung mid and lower lobectomy, R eye cataract removed 04/19/20. Past Anesthesia/Blood Transfusion Reactions: No Reported Reaction, Family History of Problems w/ Anesthesia Additional Past Anesthesia/Blood Transfusion Reaction / Comm: Pt has received blood in past without reaction. brother & sister have difficulty coming out of anesthesia. Past Psychological History: Depression Additional Psychological History / Comment(s): Pt resides alone with her cat in an apartment. She is independent. She states d/t recent colostomy/health issues, she has had an increase in depression but denies thoughts/plans of suicide. Pt is independent. Smoking Status: Former smoker Past Alcohol Use History: None Reported Additional Past Alcohol Use History / Comment(s): Pt started smoking in 1987 and quit in 2016 Past Drug Use History: Marijuana Additional Drug Use History / Comment(s): hx of occasional marijuana use for nausea - Past Family History Mother Family Medical History: Coronary Artery Disease (CAD) Additional Family Medical History / Comment(s): Mother at age 78 with history of coronary artery disease status post multiple stents. Father Family Medical History: Myocardial Infarction ([place]) Additional Family Medical History / Comment(s): Father at age 45 from myocardial infarction. Brother(s) Family Medical History: Hypertension Additional Family Medical History / Comment(s): Patient has 1 brother with hypertension and kidney stones. Sister(s) Family Medical History: No Reported History Additional Family Medical History / Comment(s): Patient has one sister with CHRONIC HYPERCOHDRIA AND GALLSTONES Daughter(s) Family Medical History: No Reported History Additional Family Medical History / Comment(s): . Medications and Allergies Home Medications Medication Instructions Recorded Confirmed Type Hydrocortisone 15 mg PO QAM 06/06/19 04/20/20 History Hydrocortisone [Cortef] 7.5 mg PO HS 06/06/19 04/20/20 History Metoprolol Tartrate [Lopressor] 50 mg PO Q12HR 11/04/19 04/20/20 History cycloSPORINE 0.05% OPHTH SOLN 1 drop BOTH EYES Q12HR 11/04/19 04/20/20 History [Restasis] Metoclopramide [Reglan] 5 mg PO TID 02/12/20 04/20/20 History Evolocumab [Repatha Syringe] 140 mg SQ Q14D 04/20/20 04/20/20 History Gabapentin 300 mg PO TID 04/20/20 04/20/20 History Latanoprost [Xalatan 0.005%] 1 drop BOTH EYES HS 04/20/20 04/20/20 History Pantoprazole [Protonix] 40 mg PO DAILY 04/20/20 04/20/20 History Rivaroxaban [Xarelto] 20 mg PO HS 04/20/20 04/20/20 History [place] 2 tab PO BID 04/20/20 04/20/20 History Vascepa 2 gm PO BID 04/20/20 04/20/20 History lisinopriL [Zestril] 20 mg PO DAILY 04/20/20 04/20/20 History prednisoLONE ACETATE 1% OPHTH 1 drops BOTH EYES DAILY 04/20/20 04/20/20 History [Pred Forte 1%] Allergies Allergy/AdvReac Type Severity Reaction Status Date / Time azathioprine [From Imuran] Allergy Vomiting Verified 04/20/20 10:11 codeine Allergy Nausea Verified 04/20/20 10:11 metronidazole [From Flagyl] Allergy Anaphylaxis Verified 04/20/20 10:11 methotrexate AdvReac Unknown Verified 04/20/20 10:11 Surgical - Exam Osteopathic Statement: *. No significant issues noted on an osteopathic structural exam other than those noted in the History and Physical/Consult. Vital Signs Temp Pulse Resp BP Pulse Ox 99.0 F 136 H 18 125/83 97 04/20/20 09:35 04/20/20 09:35 04/20/20 09:35 04/20/20 09:35 04/20/20 09:35 - General well nourished, no distress - Eyes PERRL - ENT no hearing loss - Neck trachea midline - Respiratory normal respiratory effort - Abdomen Soft, no significant tenderness to palpation, none distended, no rebound, no guarding, Parastomal hernia around ostomy site, ostomy is pink and patent - Psychiatric oriented to time, oriented to person, oriented to place Results - Labs 04/20/20 09:53 04/20/20 09:53 Abnormal Lab Results - Last 24 Hours (Table) 04/20/20 04/20/20 04/21/20 Range/Units 17:19 17:55 01:46 APTT 37.2 H (22.0-30.0) sec Troponin I 0.645 H* (0.000-0.034) ng/mL Triglycerides 217 H (<150) mg/dL 04/21/20 04/21/20 Range/Units 01:46 07:57 APTT 34.4 H 51.3 H (22.0-30.0) sec Troponin I (0.000-0.034) ng/mL Triglycerides (<150) mg/dL Diabetes panel 04/21/20 Range/Units 01:46 Triglycerides 217 H (<150) mg/dL HDL Cholesterol 51 (40-60) mg/dL Assessment and Plan (1) Acute pancreatitis Narrative/Plan: 60-year-old female with abdominal pain, likely secondary to acute pancreatitis. Continue with IV fluid hydration. Cardiology recommendations based on elevated troponin are appreciated. Patient does have a chronic parastomal hernia and is being followed by [facility] surgery secondary to this. She also recently had a barium enema for evaluation of her colonic anastomosis. I would recommend continued surgical care with the [facility] colorectal group. No plan for acute surgical intervention. Continue medical management. Current Visit: Yes Status: Acute Code(s): K85.90 - ACUTE PANCREATITIS WITHOUT NECROSIS OR INFECTION, UNSP SNOMED Code(s): 601438534
[2020-04-21] MEDS: HYDROmorphone 1 MG/ML 1 ML SYRINGE IVP PRN ×2 (16:38→21:34)
[2020-04-21] MEDS: LATANOPROST 0.005% OPHTH DROPS 2.5 ML BTL BOTH EYES SCH (21:32)
[2020-04-22] MEDS: HEPARIN SOD,PORK IN 0.45% NACL 25,000 UNIT in 0.45% NACL 1 250ML.BAG IV SCH (04:03)
[2020-04-22] MEDS: SODIUM CHLORIDE 0.9% 1,000 ML IV SCH ×2 (05:43→21:21)
--- NOTE | 2020-04-22 06:24 | P.HPIM ---
History of Present Illness H&P Date: 04/20/20 his is a 60-year-old female patient of Dr. Alvarez with past medical history of diabetes mellitus type 2, Curtis granulomatosis, gastroesophageal reflux disease, hypertension, history of sigmoid diverticulitis with perforation and peritonitis status post Dong procedure and colostomy placement followed by possible phlegmon formation at the ostomy site and underwent IV antibiotic treatment with meropenem. Bedtime she was discharged to [facility] and was subsequently discharged from [facility] on November 20. She has had follow-up in the office and was doing great following that. Patient developed to have a significant bowel pain and had no output through her ostomy she was admitted to the [facility] and subsequently she was transferred to [facility] for evaluation of exploratory laparotomy lysis of adhesion and takedown the colostomy with creation of loop ileostomy and mobilization of the splenic flexure with colo-proctostomy that was done on 01/03/[address] Lucas Blankenship , patient stayed in the hospital for quiet sometime her hospital course was complicated By right midline thrombus for which she was placed on Coumadin also with intractable nausea and vomiting and right-sided abdominal pain, was discharged from [facility] and sent home then she came back to our [facility] ileu and nausea and vomiting, then she recovered well, and she was switched from coumadin to xarelto as we could not regulate her INR, she was recently seen by her surgeon and had barium enema for evaluation of her anatomy before she is scheduled for ileostomy reversal, also she had cataract surgery in few days ago by Tanner Delgadillo, she came to the ER today because of increased abdominal pain and nausea and she was foud to have slight elevation of the Lipase and her troponin came back positive , CT scan was ok , she was started on heparin drip and she was seen by cardiology and was scheduled for left heart catherization in the next 2 days, was seen by surgery for pancreatitis . Review of Systems Constitutional: Reports chronic pain, Reports fatigue, Reports weakness Eyes: denies blurred vision, denies bulging eye, denies decreased vision Ears, nose, mouth and throat: Denies dysphagia, Denies neck lump, Denies sore throat Cardiovascular: Denies chest pain, Denies decreased exercise tolerance, Denies dyspnea on exertion, Denies lightheadedness, Denies rapid heart beat, Denies shortness of breath, Denies syncope Respiratory: Denies congestion, Denies cough with sputum, Denies home oxygen, Denies sleep apnea, Denies snoring, Denies wheezing Gastrointestinal: Reports abdominal pain, Reports bloating, Reports nausea, Denies change in bowel habits, Denies heartburn, Denies loss of appetite, Denies melena, Denies vomiting Genitourinary: Denies dysuria, Denies nocturia Menstruation: Reports postmenopausal Musculoskeletal: Denies myalgias Musculoskeletal: absent: ankle pain, ankle stiffness, ankle swelling, elbow pain, elbow stiffness, elbow swelling, foot pain, foot stiffness, foot swelling, hand pain, hand stiffness, hand swelling, hip pain, hip stiffness, hip swelling, knee pain, knee stiffness, knee swelling, shoulder pain, shoulder stiffness, shoulder swelling, wrist pain, wrist stiffness, wrist swelling Integumentary: Denies pruritus, Denies rash Neurological: Denies numbness, Denies weakness Psychiatric: Reports anxiety, Denies depression, Denies sadness/tearfulness, Denies sleep disturbances, Denies suicidal ideation Endocrine: Denies fatigue, Denies weight change Past Medical History Past Medical History: COPD, Diabetes Mellitus, Eye Disorder, GERD/Reflux, Hyperlipidemia, Hypertension, Myocardial Infarction ([place]), Pneumonia, Respiratory Disorder Additional Past Medical History / Comment(s): Diverticulitis/perforation with colostomy September 2019 and ileostomy Dec 2019., vasculitis, HX SEVERE RIGHT LUNG INFECTION WITH RIGHT MIDDLE AND LOWER LOBE RESECTION., curtis's granulomatosis with rituxin twice a year (last dose Apr 2019)., eyes/nose/lungs affected by curtis's, bronchitis, "borderline" diabetes with elevated blood sugars only with steroids per pt, 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, adrenal insufficiency, nephrolithiasis past & present., silent [place] 2016, past endometriosis/ovarian cysts with multiple laparoscopies., states blod clot in right arm from midline IV inserted at [place] 2 weeks ago., Currently at [facility] for rehab. Last Myocardial Infarction Date:: 2015 History of Any Multi-Drug Resistant Organisms: None Reported Date of last positivie culture/infection: 2014 MDRO Source:: Stool Past Surgical History: Bowel Resection, Section, Heart Catheterization, Orthopedic Surgery Additional Past Surgical History / Comment(s): 10/21/19 Hartmans procedure/colost jacob, ILEOSTOMY (DEC 2019), exploratory laparoscopies 3-4, right lung resection 2016, L humerus double compound fx repair, colonoscopy, hemorrhoidectomy, lithotripsy x 2. , 2/3 OF RIGHT LUNG LOBE REMOVED 2016. cataracts Past Anesthesia/Blood Transfusion Reactions: No Reported Reaction, Family History of Problems w/ Anesthesia Additional Past Anesthesia/Blood Transfusion Reaction / Comment(s): Pt has received blood in past without reaction. brother & sister have difficulty coming out of anesthesia. Past Psychological History: Depression Smoking Status: Former smoker Past Alcohol Use History: None Reported Past Drug Use History: Marijuana - Past Family History Mother Family Medical History: Coronary Artery Disease (CAD) Additional Family Medical History / Comment(s): Mother at age 78 with history of coronary artery disease status post multiple stents. Father Family Medical History: Myocardial Infarction ([place]) Additional Family Medical History / Comment(s): Father at age 45 from myocardial infarction. Brother(s) Family Medical History: Hypertension Additional Family Medical History / Comment(s): Patient has 1 brother with hypertension and kidney stones. Sister(s) Family Medical History: No Reported History Additional Family Medical History / Comment(s): Patient has one sister with CHRONIC HYPERCOHDRIA AND GALLSTONES Daughter(s) Family Medical History: No Reported History Additional Family Medical History / Comment(s): . Medications and Allergies Home Medications Medication Instructions Recorded Confirmed Type Hydrocortisone 15 mg PO QAM 06/06/19 04/20/20 History Hydrocortisone [Cortef] 7.5 mg PO HS 06/06/19 04/20/20 History Metoprolol Tartrate [Lopressor] 50 mg PO Q12HR 11/04/19 04/20/20 History cycloSPORINE 0.05% OPHTH SOLN 1 drop BOTH EYES Q12HR 11/04/19 04/20/20 History [Restasis] Metoclopramide [Reglan] 5 mg PO TID 02/12/20 04/20/20 History Evolocumab [Repatha Syringe] 140 mg SQ Q14D 04/20/20 04/20/20 History Gabapentin 300 mg PO TID 04/20/20 04/20/20 History Latanoprost [Xalatan 0.005%] 1 drop BOTH EYES HS 04/20/20 04/20/20 History Pantoprazole [Protonix] 40 mg PO DAILY 04/20/20 04/20/20 History Rivaroxaban [Xarelto] 20 mg PO HS 04/20/20 04/20/20 History [place] 2 tab PO BID 04/20/20 04/20/20 History Vascepa 2 gm PO BID 04/20/20 04/20/20 History lisinopriL [Zestril] 20 mg PO DAILY 04/20/20 04/20/20 History prednisoLONE ACETATE 1% OPHTH 1 drops BOTH EYES DAILY 04/20/20 04/20/20 History [Pred Forte 1%] Allergies Allergy/AdvReac Type Severity Reaction Status Date / Time azathioprine [From Imuran] Allergy Vomiting Verified 04/20/20 10:11 codeine Allergy Nausea Verified 04/20/20 10:11 metronidazole [From Flagyl] Allergy Anaphylaxis Verified 04/20/20 10:11 methotrexate AdvReac Unknown Verified 04/20/20 10:11 Physical Exam Vitals: Vital Signs Temp Pulse Resp BP Pulse Ox 04/20/20 12:30 98.7 F 108 H 18 142/93 96 04/20/20 10:59 99.6 F 112 H 18 151/98 96 04/20/20 10:03 99.5 F 115 H 18 127/88 97 04/20/20 09:35 99.0 F 136 H 18 125/83 97 Intake and Output 04/19/20 04/20/20 04/20/20 22:59 06:59 14:59 Other: Weight 77.111 kg Physical examination: HEENT: head is atraumatic normocephalic pupils were equal round reactive to ligh t and accomodations, extra ocular muscle movement were intact, mucous membranes of the mouth are somewhat dry. Neck: supple no JVP. Chest: decrease breath sounds at the bases with few ronchi no expiratory wheezes, no chest wall tenderness or intercostal retraction. Heart: firs heart sound is depressed, second heart sound is normal, there is no gallop or murmur. Abdomen: distended, soft, mild tenderness in the lower abdomen there is ileostomy bag in place in left lower quadrant, no rebound or guarding positive bowel sounds. Extremities: there is no edema or calf tenderness, DP +2 bilaterally. Neurologic examination: patient is awake , alert and oriented X 3 CN II-XII are grossly intact, muscle power 5/5 in bilateral upper and lower extremities, Deep tendon reflexes are normal. Results CBC & Chem 7: 04/20/20 09:53 04/20/20 09:53 Labs: Abnormal Lab Results - Last 24 Hours (Table) 04/20/20 04/20/20 04/20/20 Range/Units 09:53 09:53 09:53 WBC 19.3 H (3.8-10.6) k/uL Plt Count 609 H (150-450) k/uL Neutrophils # 15.2 H (1.3-7.7) k/uL Glucose 165 H (74-99) mg/dL Plasma Lactic Acid Jacobo 2.3 H* (0.7-2.0) mmol/L Troponin I (0.000-0.034) ng/mL Lipase 961 H (23-300) U/L Urine Protein (Negative) Urine Mucus (None) /hpf 04/20/20 04/20/20 Range/Units 10:08 12:07 WBC (3.8-10.6) k/uL Plt Count (150-450) k/uL Neutrophils # (1.3-7.7) k/uL Glucose (74-99) mg/dL Plasma Lactic Acid Jacobo (0.7-2.0) mmol/L Troponin I 0.980 H* (0.000-0.034) ng/mL Lipase (23-300) U/L Urine Protein 1+ H (Negative) Urine Mucus Few H (None) /hpf Assessment and Plan Assessment: Assessment and plan: 1. Non ST elevation [place]. we will continue with heparin drip, ASA 325 mg orally daily and Metoprolol 50 mg orally bid patient is not able to tolerate STATINS and she is on Repath 140 mg SC q 2weeks, we will check echocardiogram and cardiology consult for left heart catherization. 2. Pancreatitis of unclear etiology. her CT scan of the abdomen and pelvis was essentially better than the last one she had in the fall with improvement in he inflammatory changes. 3. Post recent cataract surgery. we will con continue with current eye drops. 4. Status post Matos procedure with colostomy placement due to diverticulitis with perforation, and history of phlegmon at ostomy site, with a takedown of prior occluded colostomy with ileostomy placement that was just done at [facility] on 01/03/2020. 5. COPD without exacerbation. Continue albuterol every 4 hours as needed, Symbicort twice daily. 6. Adrenal insufficiency disorder. we will continue with Cortef 20 mg po in AM and 10 mg in PM. 7. History of [place] granulomatosis. we will continue to monitor and she cerrato been off Retuxan. 8. GERD. Continue patient on Protonix 40 mg IV push every 24 hours. 9. Hypertension and hypertensive cardiovascular disease. Continue with Metoprolol 50 mg orally bid and Liisnopril 20 mg orally daily. 10. Recurrent depression. Continue Cymbalta 20 mg orally daily. 11. History of DVT of the right upper extremity. Hold Xarelto currently on heparin drip. 12. DVT prophylaxis . continue wit Heparin drip. 13. GI prophylaxis. Continue Protonix 40 mg orally daily. 13. admits to inpatient. estimated length of stay 2 midnights. 14. Full code.
--- NOTE | 2020-04-22 06:27 | P.PN ---
Subjective Progress Note Date: 04/21/20 This is a 60-year-old female patient of Dr. Alvarez with past medical history of diabetes mellitus type 2, Curtis granulomatosis, gastroesophageal reflux disease, hypertension, history of sigmoid diverticulitis with perforation and peritonitis status post Dong procedure and colostomy placement followed by possible phlegmon formation at the ostomy site and underwent IV antibiotic treatment with meropenem. Bedtime she was discharged to [facility] and was subsequently discharged from [facility] on November 20. She has had follow-up in the office and was doing great following that. Patient developed to have a significant bowel pain and had no output through her ostomy she was admitted to the [facility] and subsequently she was transferred to [facility] for evaluation of exploratory laparotomy lysis of adhesion and takedown the colostomy with creation of loop ileostomy and mobilization of the splenic flexure with colo-proctostomy that was done on 01/03/[address] Lucas Blankenship , patient stayed in the hospital for quiet sometime her hospital course was complicated By right midline thrombus for which she was placed on Coumadin also with intractable nausea and vomiting and right-sided abdominal pain, was discharged from [facility] and sent home then she came back to our hospital [facility] ileu and nausea and vomiting, then she recovered well, and she was switched from coumadin to xarelto as we could not regulate her INR, she was recently seen by her surgeon and had barium enema for evaluation of her anatomy before she is scheduled for ileostomy reversal, also she had cataract surgery in few days ago by Tanner Delgadillo, she came to the ER today because of increased abdominal pain and nausea and she was foud to have slight elevation of the Lipase and her troponin came back positive , CT scan was ok , she was started on heparin drip and she was seen by cardiology and was scheduled for left heart catherization in the next 2 days, was seen by surgery for pancreatitis . Objective - Vital Signs Vital signs: Vital Signs Temp 99.7 F H 04/22/20 04:05 Pulse 81 04/22/20 04:05 Resp 7 L 04/22/20 04:05 BP 126/61 04/22/20 04:05 Pulse Ox 98 04/22/20 04:05 Intake & Output 04/21/20 04/21/2021 06:59 18:59 06:59 Intake Total 141.525 695.04 237.273 Output Total 310 Balance -168.475 695.04 237.273 Weight 77 kg Intake: Intake, IV Titration 141.525 695.04 237.273 Amount Heparin Sod,Pork in 0.45% 141.525 95.04 237.273 NaCl 25,000 unit In 0.45 % NaCl 1 250ml.bag @ 12 UNITS/KG/HR 9.253 mls/hr IV .Q24H [facility] Rx#: [id number] Sodium Chloride 0.9% 1, 600 000 ml @ 75 mls/hr IV . [id number] [facility] Rx#:[id number] Output: Urine 310 Other: Voiding Method Toilet Toilet Toilet # Voids 1 3 # Bowel Movements 1 - Exam Review of Systems Constitutional: Reports chronic pain, Reports fatigue, Reports weakness Eyes: denies blurred vision, denies bulging eye, denies decreased vision Ears, nose, mouth and throat: Denies dysphagia, Denies neck lump, Denies sore throat Cardiovascular: Denies chest pain, Denies decreased exercise tolerance, Denies dyspnea on exertion, Denies lightheadedness, Denies rapid heart beat, Denies shortness of breath, Denies syncope Respiratory: Denies congestion, Denies cough with sputum, Denies home oxygen, Denies sleep apnea, Denies snoring, Denies wheezing Gastrointestinal: Reports abdominal pain, Reports bloating, Reports nausea, Denies change in bowel habits, Denies heartburn, Denies loss of appetite, Denies melena, Denies vomiting Genitourinary: Denies dysuria, Denies nocturia Menstruation: Reports postmenopausal Musculoskeletal: Denies myalgias Musculoskeletal: absent: ankle pain, ankle stiffness, ankle swelling, elbow pain, elbow stiffness, elbow swelling, foot pain, foot stiffness, foot swelling, hand pain, hand stiffness, hand swelling, hip pain, hip stiffness, hip swelling, knee pain, knee stiffness, knee swelling, shoulder pain, shoulder stiffness, shoulder swelling, wrist pain, wrist stiffness, wrist swelling Integumentary: Denies pruritus, Denies rash Neurological: Denies numbness, Denies weakness Psychiatric: Reports anxiety, Denies depression, Denies sadness/tearfulness, Denies sleep disturbances, Denies suicidal ideation Endocrine: Denies fatigue, Denies weight change Physical examination: HEENT: head is atraumatic normocephalic pupils were equal round reactive to lig ht and accomodations, extra ocular muscle movement were intact, mucous membranes of the mouth are somewhat dry. Neck: supple no JVP. Chest: decrease breath sounds at the bases with few ronchi no expiratory wheezes, no chest wall tenderness or intercostal retraction. Heart: firs heart sound is depressed, second heart sound is normal, there is no gallop or murmur. Abdomen: distended, soft, mild tenderness in the lower abdomen there is ileostomy bag in place in left lower quadrant, no rebound or guarding positive bowel sounds. Extremities: there is no edema or calf tenderness, DP +2 bilaterally. Neurologic examination: patient is awake , alert and oriented X 3 CN II-XII are grossly intact, muscle power 5/5 in bilateral upper and lower extremities, Deep tendon reflexes are normal. - Labs CBC & Chem 7: 04/20/20 09:53 04/20/20 09:53 Labs: Abnormal Lab Results - Last 24 Hours (Table) 04/21/20 Range/Units 07:57 APTT 51.3 H (22.0-30.0) sec Assessment and Plan Assessment: Assessment and plan: 1. Non ST elevation [place]. we will continue with heparin drip, ASA 325 mg orally daily and Metoprolol 50 mg orally bid patient is not able to tolerate STATINS and she is on Repath 140 mg SC q 2weeks, we will check echocardiogram and cardiology consult for left heart catherization. 2. Pancreatitis of unclear etiology. her CT scan of the abdomen and pelvis was essentially better than the last one she had in the fall with improvement in he inflammatory changes. 3. Post recent cataract surgery. we will con continue with current eye drops. 4. Status post Matos procedure with colostomy placement due to diverticulitis with perforation, and history of phlegmon at ostomy site, with a takedown of prior occluded colostomy with ileostomy placement that was just done at [facility] on 01/03/2020. 5. COPD without exacerbation. Continue albuterol every 4 hours as needed, Symbicort twice daily. 6. Adrenal insufficiency disorder. we will continue with Cortef 20 mg po in AM and 10 mg in PM. 7. History of [place] granulomatosis. we will continue to monitor and she cerrato been off Retuxan. 8. GERD. Continue patient on Protonix 40 mg IV push every 24 hours. 9. Hypertension and hypertensive cardiovascular disease. Continue with Metoprolol 50 mg orally bid and Liisnopril 20 mg orally daily. 10. Recurrent depression. Continue Cymbalta 20 mg orally daily. 11. History of DVT of the right upper extremity. Hold Xarelto currently on hepar in drip. 12. DVT prophylaxis . continue wit Heparin drip. 13. GI prophylaxis. Continue Protonix 40 mg orally daily. 14. Scheduled for left heart cath in AM.
[2020-04-22] MEDS: prednisoLONE ACETATE 1% OPHTH DROPS 5 ML BTL BOTH EYES SCH (09:07)
[2020-04-22] MEDS: HYDROCORTISONE 10 MG TAB PO SCH ×2 (09:08→21:44)
[2020-04-22] MEDS: METOCLOPRAMIDE 5 MG TAB PO SCH ×3 (09:08→21:01)
[2020-04-22] MEDS: PANTOPRAZOLE 40 MG TABLET PO SCH (09:08)
[2020-04-22] MEDS: cycloSPORINE 0.05% OPHTH 0.4 ML DROPERETTE BOTH EYES SCH ×2 (09:09→22:15)
[2020-04-22] MEDS: lisinopriL 20 MG TAB PO SCH (09:09)
[2020-04-22] MEDS: ASPIRIN 81 MG PO SCH (09:09)
[2020-04-22] MEDS: GABAPENTIN 300 MG CAP PO SCH ×3 (09:09→21:00)
[2020-04-22] MEDS: METOPROLOL TARTRATE 50 MG TAB PO SCH ×2 (09:09→21:01)
[2020-04-22] MEDS: HEPARIN SODIUM,PORCINE 5,000 UNIT/ML 1 ML VIAL IV PRN (09:10)
[2020-04-22 10:47] LABS: HCT 30.1 % (34.0-46.0); Hypochromasia Slight; MCH 28.4 pg (25.0-35.0); MCHC 32.4 g/dL (31.0-37.0); MCV 87.7 fL (80.0-100.0); Mean Platelet Volume 7.8; Platelet Count 450 k/uL (150-450); RBC 3.44 m/uL (3.80-5.40); RDW 14.7 % (11.5-15.5); WBC 9.5 k/uL (3.8-10.6)
[2020-04-22 10:50] LABS: African American GFR (CKD) >90 (>60 ml/min/1.73 sqM); Anion Gap 12 mmol/L; Blood Urea Nitrogen 8 mg/dL (7-17); Calcium 8.1 mg/dL (8.4-10.2); Carbon Dioxide 21 mmol/L (22-30); Chloride 106 mmol/L (98-107); Glucose 89 mg/dL (74-99); Non-African American GFR(CKD) 86 (>60 ml/min/1.73 sqM); Potassium 3.1 mmol/L (3.5-5.1); Sodium 139 mmol/L (137-145)
[2020-04-22] MEDS ORDERED: ALPRAZolam 0.5 MG TAB PO PRN (10:54)
[2020-04-22] MEDS ORDERED: ALPRAZolam 0.25 MG TAB PO PRN (10:54)
[2020-04-22] MEDS ORDERED: NITROGLYCERIN SL TABS 0.4 MG TAB SUBLINGUAL PRN (10:54)
[2020-04-22 11:03] LABS: HGB 9.8 gm/dL (11.4-16.0)
[2020-04-22] MEDS: MIDAZOLAM 2 MG/2 ML VIAL IV ONE ×3 (12:15→12:27)
[2020-04-22] MEDS ORDERED: HEPARIN SODIUM 1,000 UN/ML (10ML VL) ONE (12:15)
[2020-04-22] MEDS ORDERED: LIDOCAINE 1% INJ 10MG/ML (20 ML MDV) SQ ONE (12:15)
[2020-04-22] MEDS ORDERED: IV FLUID CONTINUATION 800 ML IV ONE (12:15)
[2020-04-22] MEDS ORDERED: VERAPAMIL SYRINGE (5 MG/10 ML) INTRAARTER ONE (12:17)
[2020-04-22] MEDS ORDERED: IOPAMIDOL-370 100ML BTL INJ ONE (12:30)
--- NOTE | 2020-04-22 12:32 | PN ---
PROGRESS NOTE This lady has what seems to be abdominal pain, possible pancreatitis. Also had a takotsubo type picture. Echo was reviewed by me. There is a wall motion abnormality in the inferior wall. Troponins are elevated. Under the circumstances, after long discussion, I am recommending coronary angiography from right radial approach. This lady has ileostomy as well. Vitals are stable. No JVD. S1, S2 heard normally. Lungs reveal decent air entry. Abdomen is soft, not as tender as before. She is improving. We will do a coronary angiography and intervention based on findings. The procedure will be done later on today from right radial approach and I will discontinue the heparin. I explained to the patient the rationale, risks, benefits, and options. She understands all details and wishes to proceed. MMODL / IJN: [id number] /
--- NOTE | 2020-04-22 14:18 | CC ---
CARDIAC CATHETERIZATION REPORT DATE OF SERVICE: 04/22/2020. PROCEDURE: Left heart catheterization and coronary angiography. PERFORMED BY: Dr. Alona Gonzales. Moderate conscious sedation time was 19 minutes. Patient was administered Versed. Oxygen saturation, hemodynamics and EKG were monitored closely. CLINICAL INFORMATION: Mrs. Laquita Carlisle is a 60-year-old lady with a history of takotsubo syndrome 11/2015 in [place], details of which are not available, but apparently she had no obstructive CAD at that time. She came in with abdominal pain, there is a question of pancreatitis. She has an ileostomy and then she did not have any clear-cut chest pain but then felt some uncomfortable feeling in the left shoulder and epigastric area and had a troponin elevation. There was a question of wall motion abnormality on the echo, which I was not convinced, but given her presentation and troponin elevation, she was advised cardiac cath after due discussion regarding risks, benefits, and options. PROCEDURE NOTE: Under local anesthesia and strict aseptic precautions, a 6-Kazakh introducer was placed in the right radial artery. Using a JL3.5 and JR4 catheters I performed coronary angiography and the same right catheter was used to check LV pressure but LV gram was not performed. The sheath was then taken out and TR band applied as per protocol with good saturation of the fingers of the right hand and patient tolerated the procedure well without complication. The findings were discussed with the patient. I also spoke to her daughter by phone. CARDIAC CATH FINDINGS: The left ventricular end-diastolic pressure was about 10-12 mmHg without any gradient across the aortic valve. CORONARY ANGIOGRAPHY FINDINGS: RIGHT CORONARY ARTERY: This is a technically a small nondominant vessel, has minor irregularities, no significant disease. Limited amount of myocardium is being supplied by it. There is calcification at the origin of the right coronary artery. LEFT MAIN CORONARY ARTERY: A very short vessel that immediately bifurcates into LAD and circumflex. No significant disease. LEFT ANTERIOR DESCENDING CORONARY ARTERY: This is a fair caliber, fair distribution vessel. No significant disease. Has minor irregularities of 30% to 35%, runs all the way to the apex supplying a sizable amount of myocardium. I had some difficulty cannulating the LAD correctly, but the ZAVALA caudal view was excellent and there is no significant disease. LEFT POSTERIOR CIRCUMFLEX CORONARY ARTERY: Technically dominant vessel, gives off a large obtuse marginal then runs in the AV groove and distally gives off a PDA and PLV, both of which are of good caliber. The circumflex is large superdominant. No significant disease in all of its branches. LEFT VENTRICULOGRAM: Left ventriculogram was not performed. FINAL IMPRESSION: This patient has a left dominant system. Normal filling pressures. No gradient and no significant obstructive coronary artery disease. RECOMMENDATION: Findings were discussed with the patient and daughter. From a cardiac standpoint, no intervention necessary other than risk factor modification. The patient will be discharged at the discretion of the admitting physician. ARLEN / RICO: [id number] /
--- NOTE | 2020-04-22 15:07 | P.PN ---
Subjective Progress Note Date: 04/22/20 This is a 60-year-old female patient of Dr. Alvarez with past medical history of diabetes mellitus type 2, [place] granulomatosis, gastroesophageal reflux disease, hypertension, history of sigmoid diverticulitis with perforation and peritonitis status post Dong procedure and colostomy placement followed by possible phlegmon formation at the ostomy site and underwent IV antibiotic treatment with meropenem. Bedtime she was discharged to [facility] and was subsequently discharged from [facility] on November 20. She has had follow-up in the office and was doing great following that. Patient developed to have a significant bowel pain and had no output through her ostomy she was admitted to the [facility] and subsequently she was transferred to [facility] for evaluation of exploratory laparotomy lysis of adhesion and takedown the colostomy with creation of loop ileostomy and mobilization of the splenic flexure with colo-proctostomy that was done on 01/03/[address] Lucas Blankenship , patient stayed in the hospital for quiet sometime her hospital course was complicated By right midline thrombus for which she was placed on Coumadin also with intractable nausea and vomiting and right-sided abdominal pain, was discharged from [facility] and sent home then she came back to [facility]u and nausea and vomiting, then she recovered well, and she was switched from coumadin to xarelto as we could not regulate her INR, she was recently seen by her surgeon and had barium enema for evaluation of her anatomy before she is scheduled for ileostomy reversal, also she had cataract surgery in few days ago by Tanner Delgadillo, she came to the ER today because of increased abdominal pain and nausea and she was foud to have slight elevation of the Lipase and her troponin came back positive , CT scan was ok , she was started on heparin drip and she was seen by cardiology and was scheduled for left heart catherization in the next 2 days, was seen by surgery for pancreatitis. 04/22: Patient has been seen by Dr. Ontiveros with recommendations to continue surgical care at [facility]. No plan for any acute surgical intervention at this time. Patient has been seen by cardiology and underwent heart catheterization today revealed no significant obstructive coronary artery disease and no intervention was necessary. Continue risk factor modification and patient was cleared for discharge by cardiology. Patient has been afebrile, heart rate 82, blood pressure 149/67, pulse ox 99% on room air. Repeat blood work reveals WBC 9.5, hemoglobin 9.8. Potassium 3.1 and will be replaced. Creatinine 0.75. Blood culture is no growth at 24 hours.. Mild mitral regurgitation. Objective - Vital Signs Vital signs: Vital Signs Temp 98.6 F 04/22/20 08:00 Pulse 82 04/22/20 08:00 Resp 14 04/22/20 08:00 BP 149/67 04/22/20 08:00 Pulse Ox 99 04/22/20 08:00 Intake & Output 04/21/20 04/22/20 04/22/20 18:59 06:59 18:59 Intake Total 695.04 237.273 705.713 Output Total 300 Balance 695.04 237.273 405.713 Weight 75.2 kg Intake: IV 50 Intake, IV Titration 695.04 237.273 655.713 Amount Heparin Sod,Pork in 0.45% 95.04 237.273 55.713 NaCl 25,000 unit In 0.45 % NaCl 1 250ml.bag @ 12 UNITS/KG/HR 9.253 mls/hr IV .Q24H [facility] Rx#: [id number] Sodium Chloride 0.9% 1, 600 600 000 ml @ 75 mls/hr IV . [id number] [facility] Rx#:[id number] Oral 0 Output: Stool 300 Other: Voiding Method Toilet Toilet Toilet # Voids 3 2 # Bowel Movements 1 - Exam Review of Systems Constitutional: Reports chronic pain, Reports fatigue, Reports weakness Eyes: denies blurred vision, denies bulging eye, denies decreased vision Ears, nose, mouth and throat: Denies dysphagia, Denies neck lump, Denies sore throat Cardiovascular: Denies chest pain, Denies decreased exercise tolerance, Denies dyspnea on exertion, Denies lightheadedness, Denies rapid heart beat, Denies shortness of breath, Denies syncope Respiratory: Denies congestion, Denies cough with sputum, Denies home oxygen, Denies sleep apnea, Denies snoring, Denies wheezing Gastrointestinal: Reports abdominal pain, Reports bloating, Reports nausea, Denies change in bowel habits, Denies heartburn, Denies loss of appetite, Denies melena, Denies vomiting Genitourinary: Denies dysuria, Denies nocturia Menstruation: Reports postmenopausal Musculoskeletal: Denies myalgias Musculoskeletal: absent: ankle pain, ankle stiffness, ankle swelling, elbow pain, elbow stiffness, elbow swelling, foot pain, foot stiffness, foot swelling, hand pain, hand stiffness, hand swelling, hip pain, hip stiffness, hip swelling, knee pain, knee stiffness, knee swelling, shoulder pain, shoulder stiffness, s houlder swelling, wrist pain, wrist stiffness, wrist swelling Integumentary: Denies pruritus, Denies rash Neurological: Denies numbness, Denies weakness Psychiatric: Reports anxiety, Denies depression, Denies sadness/tearfulness, Denies sleep disturbances, Denies suicidal ideation Endocrine: Denies fatigue, Denies weight change Physical examination: GEN: This is a 60-year-old female. She is resting in bed and appears to be comfortable. HEENT: head is atraumatic normocephalic pupils were equal round reactive to light and accomodations, extra ocular muscle movement were intact, mucous membranes of the mouth are somewhat dry. Neck: supple no JVP. Chest: decrease breath sounds at the bases with few ronchi no expiratory wheezes, no chest wall tenderness or intercostal retraction. Heart: firs heart sound is depressed, second heart sound is normal, there is no gallop or murmur. Abdomen: distended, soft, mild tenderness in the lower abdomen there is ileostomy bag in place in left lower quadrant, no rebound or guarding positive bowel sounds. Extremities: there is no edema or calf tenderness, DP +2 bilaterally. Neurologic examination: patient is awake , alert and oriented X 3 CN II-XII are grossly intact, muscle power 5/5 in bilateral upper and lower extremities, Deep tendon reflexes are normal. - Labs CBC & Chem 7: 04/22/20 06:31 04/22/20 06:31 Labs: Abnormal Lab Results - Last 24 Hours (Table) 04/22/20 04/22/20 04/22/20 Range/Units 06:21 06:31 06:31 RBC 3.44 L (3.80-5.40) m/uL Hgb 9.8 L D (11.4-16.0) gm/dL Hct 30.1 L (34.0-46.0) % APTT 39.4 H (22.0-30.0) sec Potassium 3.1 L (3.5-5.1) mmol/L Carbon Dioxide 21 L (22-30) mmol/L Calcium 8.1 L (8.4-10.2) mg/dL Microbiology - Last 24 Hours (Table) 04/21/20 08:20 Blood Culture - Preliminary Blood No Growth after 24 hours 04/21/20 07:57 Blood Culture - Preliminary Blood No Growth after 24 hours Assessment and Plan Plan: 1. Non ST elevation [place] ruled out by normal coronary arteries on left heart catheterization. Recommendations for risk factor modification. Resume Xarelto 20 mg daily. 2. Pancreatitis of unclear etiology. her CT scan of the abdomen and pelvis was essentially better than the last one she had in the fall with improvement in he inflammatory changes. Patient has been seen by Dr. Ontiveros with no plan for surgical intervention. Patient is currently on clear liquid diet. 3. Post recent cataract surgery. we will con continue with current eye drops. 4. Status post Matos procedure with colostomy placement due to diverticulitis with perforation, and history of phlegmon at ostomy site, with a takedown of prior occluded colostomy with ileostomy placement that was just done at [facility] on 01/03/2020. 5. COPD without exacerbation. Continue albuterol every 4 hours as needed, Symbicort twice daily. 6. Adrenal insufficiency disorder. we will continue with Cortef 20 mg po in AM and 10 mg in PM. 7. History of [place] granulomatosis. we will continue to monitor and she cerrato been off Retuxan. 8. GERD. Continue patient on Protonix 40 mg IV push every 24 hours. 9. Hypertension and hypertensive cardiovascular disease. Continue with Metoprolol 50 mg orally bid and Liisnopril 20 mg orally daily. 10. Recurrent depression. Continue Cymbalta 20 mg orally daily. 11. History of DVT of the right upper extremity. Xarelto. 12. DVT prophylaxis. Xarelto. 13. GI prophylaxis. Continue Protonix 40 mg orally daily. Discharge plan: Home Impression and plan of care have been directed as dictated by the signing physician. Lanette Mcacrthy nurse practitioner acting as scribe for signing physician.
[2020-04-22] MEDS: POTASSIUM CHLORIDE ER 20 MEQ TAB.ER PO SCH ×2 (15:37→16:54)
[2020-04-22] MEDS: HYDROmorphone 1 MG/ML 1 ML SYRINGE IVP PRN ×2 (16:58→21:02)
[2020-04-22] MEDS ORDERED: RIVAROXABAN 20 MG TAB PO SCH (21:00)
[2020-04-22] MEDS: LATANOPROST 0.005% OPHTH DROPS 2.5 ML BTL BOTH EYES SCH (21:08)
[2020-04-22] MEDS: traMADol 50 MG TAB PO PRN (23:15)
[2020-04-23 02:51] VITALS: RESP 16; TEMP 98.5
[2020-04-23] MEDS ORDERED: ATORVASTATIN 80 MG TAB PO PRN (05:00)
[2020-04-23] MEDS ORDERED: ASPIRIN 81 MG PO PRN (05:00)
[2020-04-23] MEDS ORDERED: SODIUM CHLORIDE 0.9% 1,000 ML in EMPTY BAG 1 BAG IV ONE (05:00)
[2020-04-23 06:51] LABS: HCT 28.4 % (34.0-46.0); HGB 8.7 gm/dL (11.4-16.0); Hypochromasia Marked; MCH 27.5 pg (25.0-35.0); MCHC 30.6 g/dL (31.0-37.0); MCV 89.9 fL (80.0-100.0); Mean Platelet Volume 6.6; Platelet Count 424 k/uL (150-450); RBC 3.16 m/uL (3.80-5.40); RDW 14.7 % (11.5-15.5); WBC 5.8 k/uL (3.8-10.6)
[2020-04-23] MEDS ORDERED: HEPARIN SODIUM,PORCINE 2,500 UNIT in SODIUM CHLORIDE 0.9% 250 ML IRRIGATION PRN (07:00)
[2020-04-23] MEDS ORDERED: HEPARIN SODIUM,PORCINE 10,000 UNIT in SODIUM CHLORIDE 0.9% 1,000 ML IRRIGATION PRN (07:00)
[2020-04-23 07:09] LABS: African American GFR (CKD) >90 (>60 ml/min/1.73 sqM); Anion Gap 11 mmol/L; Blood Urea Nitrogen 6 mg/dL (7-17); Calcium 8.4 mg/dL (8.4-10.2); Carbon Dioxide 17 mmol/L (22-30); Chloride 111 mmol/L (98-107); Glucose 96 mg/dL (74-99); Non-African American GFR(CKD) >90 (>60 ml/min/1.73 sqM); Potassium 3.4 mmol/L (3.5-5.1); Sodium 139 mmol/L (137-145)
[2020-04-23 08:13] VITALS: BP 132/63; PULSE 93
[2020-04-23] MEDS: SODIUM CHLORIDE 0.9% 1,000 ML IV SCH (08:13)
[2020-04-23] MEDS: METOPROLOL TARTRATE 50 MG TAB PO SCH (08:19)
[2020-04-23] MEDS: ASPIRIN 81 MG PO SCH (08:19)
[2020-04-23] MEDS: lisinopriL 20 MG TAB PO SCH (08:19)
[2020-04-23] MEDS: METOCLOPRAMIDE 5 MG TAB PO SCH (08:19)
[2020-04-23] MEDS: GABAPENTIN 300 MG CAP PO SCH (08:20)
[2020-04-23] MEDS: PANTOPRAZOLE 40 MG TABLET PO SCH (08:20)
[2020-04-23] MEDS: HYDROCORTISONE 10 MG TAB PO SCH (08:20)
[2020-04-23] MEDS: cycloSPORINE 0.05% OPHTH 0.4 ML DROPERETTE BOTH EYES SCH (08:20)
[2020-04-23] MEDS: HYDROmorphone 1 MG/ML 1 ML SYRINGE IVP PRN (08:21)
[2020-04-23] MEDS: prednisoLONE ACETATE 1% OPHTH DROPS 5 ML BTL BOTH EYES SCH (08:21)
[2020-04-23] MEDS: traMADol 50 MG TAB PO PRN (08:28)
--- NOTE | 2020-04-23 12:57 | P.PN ---
Subjective This is a pleasant 60-year-old female. She underwent cardiac catheterization yesterday with Dr. Gonzales via the right radial artery revealing no significant obstructive coronary artery disease. She is seen and examined sitting up in bed in no acute distress. She denies symptoms of chest pain, shortness of breath, dizziness or palpitations. She is complaining of discomfort at the right radial access site. Blood pressure 132/63 heart rate 93 afebrile maintaining oxygen saturation on room air. Laboratory data reviewed, WBC 5.8, hemoglobin 8.7, platelets 424, sodium 139, potassium 3.4 and creatinine 0.67. GENERAL: Well-appearing, well-nourished and in no acute distress. NECK: Supple without JVD or thyromegaly. LUNGS: Breath sounds clear to auscultation bilaterally. Respiration equal and unlabored. No wheezes, rales or rhonchi. HEART: Regular rate and rhythm without murmurs, rubs or gallops. S1 and S2 heard. EXTREMITIES: Normal range of motion, no edema. No clubbing or cyanosis. Peripheral pulses intact. Right radial access site with mild ecchymosis, no hematoma, oozing or active bleeding with strong radial pulse. ASSESSMENT Non-ST elevated myocardial infarction, normal cardiac catheterization Pancreatitis History of [place] Hypertension Dyslipidemia Diabetes mellitus History of DVT maintained on Xarelto PLAN Stable for discharge from a cardiac perspective. Follow up with Dr. Gonzales in the office in 1 week. Nurse Practitioner note has been reviewed, I agree with a documented findings and plan of care. Patient was seen and examined. Objective - Vital Signs Vital signs: Vital Signs Temp 98.5 F 04/23/20 02:50 Pulse 93 04/23/20 08:00 Resp 16 04/23/20 08:00 BP 132/63 04/23/20 08:00 Pulse Ox 98 04/23/20 08:00 Intake & Output 04/22/20 04/23/20 04/23/20 18:59 06:59 18:59 Intake Total 1995.713 Output Total 600 Balance 1395.713 Weight 75.7 kg Intake: IV 50 Intake, IV Titration 1255.713 Amount Heparin Sod,Pork in 0.45% 55.713 NaCl 25,000 unit In 0.45 % NaCl 1 250ml.bag @ 12 UNITS/KG/HR 9.253 mls/hr IV .Q24H [facility] Rx#: [id number] Sodium Chloride 0.9% 1, 600 000 ml @ 75 mls/hr IV . [id number] [facility] Rx#:[id number] Sodium Chloride 0.9% 1, 600 000 ml In Empty Bag 1 bag @ 1 ML/KG/HR 75.2 mls/hr IV .[id number] [facility] Rx#: [id number] Oral 690 Output: Stool 600 Other: Voiding Method Toilet Toilet # Voids 2 - Labs CBC & Chem 7: 04/23/20 06:28 04/23/20 06:28 Labs: Abnormal Lab Results - Last 24 Hours (Table) 04/23/20 04/23/20 Range/Units 06:28 06:28 RBC 3.16 L (3.80-5.40) m/uL Hgb 8.7 L (11.4-16.0) gm/dL Hct 28.4 L (34.0-46.0) % MCHC 30.6 L (31.0-37.0) g/dL Potassium 3.4 L (3.5-5.1) mmol/L Chloride 111 H (98-107) mmol/L Carbon Dioxide 17 L (22-30) mmol/L BUN 6 L (7-17) mg/dL Microbiology - Last 24 Hours (Table) 04/21/20 08:20 Blood Culture - Preliminary Blood No Growth after 48 hours 04/21/20 07:57 Blood Culture - Preliminary Blood No Growth after 48 hours
--- NOTE | 2020-04-23 16:28 | P.DS ---
Providers Date of admission: 04/20/20 12:44 Expected date of discharge: 04/23/20 Attending physician: Connor Alvarez Consults: 04/20/20 12:08 Consult Physician Urgent Consulting Provider: Sarita Gonzales Consult Reason/Comments: NSTEMI Do you want consulting provider notified?: Yes 04/21/20 09:09 Consult Physician Routine Consulting Provider: Michelle Ontiveros Consult Reason/Comments: colostomy, recent Ba study Do you want consulting provider notified?: Yes Primary care physician: Connor Alvarez [facility] Course: This is a 60-year-old female patient of Dr. Alvarez with past medical history of diabetes mellitus type 2, Curtis granulomatosis, gastroesophageal reflux disease, hypertension, history of sigmoid diverticulitis with perforation and peritonitis status post Dong procedure and colostomy placement followed by possible phlegmon formation at the ostomy site and underwent IV antibiotic treatment with meropenem. Bedtime she was discharged to [facility] and was subsequently discharged from [facility] on November 20. She has had follow-up in the office and was doing great following that. Patient developed to have a significant bowel pain and had no output through her ostomy she was admitted to the hospital [facility] and subsequently she was transferred to [facility] for evaluation of exploratory laparotomy lysis of adhesion and takedown the colostomy with creation of loop ileostomy and mobilization of the splenic flexure with colo-proctostomy that was done on 01/03/[address] Lucas Blankenship , patient stayed in the hospital for quiet sometime her hospital course was complicated By right midline thrombus for which she was placed on Coumadin also with intractable nausea and vomiting and right-sided abdominal pain, was di scharged from [facility] and sent home then she came back to our hospital ei ileu and nausea and vomiting, then she recovered well, and she was switched from coumadin to xarelto as we could not regulate her INR, she was recently seen by her surgeon and had barium enema for evaluation of her anatomy before she is scheduled for ileostomy reversal, also she had cataract surgery in few days ago by Tanner Delgadillo, she came to the ER today because of increased abdominal pain and nausea and she was foud to have slight elevation of the Lipase and her troponin came back positive , CT scan was ok , she was started on heparin drip and she was seen by cardiology and was scheduled for left heart catherization in the next 2 days, was seen by surgery for pancreatitis. 04/22: Patient has been seen by Dr. Ontiveros with recommendations to continue surgical care at [facility]. No plan for any acute surgical intervention at this time. Patient has been seen by cardiology and underwent heart catheterization today revealed no significant obstructive coronary artery disease and no intervention was necessary. Continue risk factor modification and patient was cleared for discharge by cardiology. Patient has been afebrile, heart rate 82, blood pressure 149/67, pulse ox 99% on room air. Repeat blood work reveals WBC 9.5, hemoglobin 9.8. Potassium 3.1 and will be replaced. Crea tinine 0.75. Blood culture is no growth at 24 hours. Echocardiogram reveals mild concentric left ventricular hypertrophy, EF 50-55%, mild mitral regurgitation, trace tricuspid regurgitation. 04/23: Patient has known new complaints today. She has been seen by cardiology and cleared for discharge. Discharge diagnoses: 1. Non ST elevation [place] ruled out by normal coronary arteries on left heart c atheterization. Recommendations for risk factor modification. Resume Xarelto 20 mg daily. 2. Pancreatitis of unclear etiology. her CT scan of the abdomen and pelvis was essentially better than the last one she had in the fall with improvement in he inflammatory changes. Patient has been seen by Dr. Ontiveros with no plan for surgical intervention. Patient is currently on clear liquid diet. 3. Post recent cataract surgery. we will con continue with current eye drops. 4. Status post Matos procedure with colostomy placement due to diverticulitis with perforation, and history of phlegmon at ostomy site, with a takedown of prior occluded colostomy with ileostomy placement that was just done at [facility] on 01/03/2020. 5. COPD without exacerbation. Continue albuterol every 4 hours as needed, Symbicort twice daily. 6. Adrenal insufficiency disorder. we will continue with Cortef 20 mg po in AM and 10 mg in PM. 7. History of [place] granulomatosis. we will continue to monitor and she cerrato been off Retuxan. 8. GERD. Continue patient on Protonix 40 mg IV push every 24 hours. 9. Hypertension and hypertensive cardiovascular disease. Continue with Metoprolol 50 mg orally bid and Liisnopril 20 mg orally daily. 10. Recurrent depression. Continue Cymbalta 20 mg orally daily. 11. History of DVT of the right upper extremity. Xarelto. 12. DVT prophylaxis. Xarelto. 13. GI prophylaxis. Continue Protonix 40 mg orally daily. Discharge plan: Home Impression and plan of care have been directed as dictated by the signing physician. Lanette Mccarthy nurse practitioner acting as scribe for signing physician. Patient Condition at Discharge: Good Plan - Discharge Summary Discharge Rx Participant: No New Discharge Prescriptions: New Aspirin 81 mg PO DAILY chew Hydrocortisone [Cortef] 25 mg PO QAM tab Hydrocortisone [Cortef] 10 mg PO HS tab Continue Hydrocortisone 15 mg PO QAM Hydrocortisone [Cortef] 7.5 mg PO HS cycloSPORINE 0.05% OPHTH SOLN [Restasis] 1 drop BOTH EYES Q12HR Metoprolol Tartrate [Lopressor] 50 mg PO Q12HR Metoclopramide [Reglan] 5 mg PO TID Latanoprost [Xalatan 0.005%] 1 drop BOTH EYES HS Rivaroxaban [Xarelto] 20 mg PO HS Pantoprazole [Protonix] 40 mg PO DAILY Evolocumab [Repatha Syringe] 140 mg SQ Q14D lisinopriL [Zestril] 20 mg PO DAILY Gabapentin 300 mg PO TID prednisoLONE ACETATE 1% OPHTH [Pred Forte 1%] 1 drops BOTH EYES DAILY [place] 2 tab PO BID Vascepa 2 gm PO BID Discharge Medication List Hydrocortisone 15 mg PO QAM 06/06/19 [History] Hydrocortisone [Cortef] 7.5 mg PO HS 06/06/19 [History] Metoprolol Tartrate [Lopressor] 50 mg PO Q12HR 11/04/19 [History] cycloSPORINE 0.05% OPHTH SOLN [Restasis] 1 drop BOTH EYES Q12HR 11/04/19 [History] Metoclopramide [Reglan] 5 mg PO TID 02/12/20 [History] Evolocumab [Repatha Syringe] 140 mg SQ Q14D 04/20/20 [History] Gabapentin 300 mg PO TID 04/20/20 [History] Latanoprost [Xalatan 0.005%] 1 drop BOTH EYES HS 04/20/20 [History] Pantoprazole [Protonix] 40 mg PO DAILY 04/20/20 [History] Rivaroxaban [Xarelto] 20 mg PO HS 04/20/20 [History] [place] 2 tab PO BID 04/20/20 [History] Vascepa 2 gm PO BID 04/20/20 [History] lisinopriL [Zestril] 20 mg PO DAILY 04/20/20 [History] prednisoLONE ACETATE 1% OPHTH [Pred Forte 1%] 1 drops BOTH EYES DAILY 04/20/20 [History] Aspirin 81 mg PO DAILY chew 04/23/20 [Rx] Hydrocortisone [Cortef] 10 mg PO HS tab 04/23/20 [Rx] Hydrocortisone [Cortef] 25 mg PO QAM tab 04/23/20 [Rx] Follow up Appointment(s)/Referral(s): Sarita Gonzales MD [STAFF PHYSICIAN] - 05/05/20 2:10 pm Connor Alvarez MD [Primary Care Provider] - 04/30/20 10:00 am [facility], [NON-STAFF] - Patient Instructions/Handouts: Heart Attack (DC), Pancreatitis (DC) Discharge Disposition: HOME SELF-CARE Care Plan Goals (MU): Follow Up with [facility].
== END 2020-04-23 13:12 | disposition home or self-care (01) | DRG 439 ==
LOC: EC 09:23 → 3SCARD 12:44
PROVIDERS: ADMIT Internal Medicine; ATTEND Internal Medicine
PROC: 4A023N7 Measurement of Cardiac Sampling and Pressure, Left Heart, Percutaneous Approach (ICD-10-PCS; principal; 2020-04-22 10:50)
PROC: B2111ZZ Fluoroscopy of Multiple Coronary Arteries using Low Osmolar Contrast (ICD-10-PCS; principal; 2020-04-22 10:50)
DX: K85.90 Acute pancreatitis without necrosis or infection, unspecified (principal); M31.30 Wegener's granulomatosis without renal involvement; E27.40 Unspecified adrenocortical insufficiency; E87.2 Acidosis; F33.9 Major depressive disorder, recurrent, unspecified; Z98.41 Cataract extraction status, right eye; E78.5 Hyperlipidemia, unspecified; I11.9 Hypertensive heart disease without heart failure; I25.2 Old myocardial infarction; J44.9 Chronic obstructive pulmonary disease, unspecified; K21.9 Gastro-esophageal reflux disease without esophagitis; K43.5 Parastomal hernia without obstruction or gangrene; Z79.01 Long term (current) use of anticoagulants; Z79.52 Long term (current) use of systemic steroids; Z79.82 Long term (current) use of aspirin; Z79.899 Other long term (current) drug therapy; Z82.49 Family history of ischemic heart disease and other diseases of the circulatory system; Z86.718 Personal history of other venous thrombosis and embolism; Z20.822 Contact with and (suspected) exposure to COVID-19; Z87.442 Personal history of urinary calculi; Z87.891 Personal history of nicotine dependence; R79.89 Other specified abnormal findings of blood chemistry; R73.03 Prediabetes; N20.0 Calculus of kidney; Z90.2 Acquired absence of lung [part of]; Z88.1 Allergy status to other antibiotic agents; Z88.5 Allergy status to narcotic agent; Z88.8 Allergy status to other drugs, medicaments and biological substances; Z87.01 Personal history of pneumonia (recurrent); Z60.2 Problems related to living alone
CPT/HCPCS: 36415; 74176; 80048; 80053; 80061; 81001; 82728; 83605; 83615; 83690; 84484; 85025; 85027; 85379; 85610; 85730; 87040; 87635; 93005; 93306; 93458; 96361; 96374; 96375; 96376; 99291

== ENCOUNTER 2020-05-08 22:40 | Observation (INO) | payer OTHER ==
[2020-05-08] MEDS ORDERED: SODIUM CHLORIDE 0.9% 1,000 ML IV STA (22:59)
--- NOTE | 2020-05-08 23:02 | ED ---
Weakness HPI - General Stated complaint: Syncopy, Neck Pain Time Seen by Provider: 05/08/20 22:43 Source: RN notes reviewed, old records reviewed Mode of arrival: EMS Limitations: no limitations - History of Present Illness Initial comments: This is a 60-year-old female DF for evaluation patient today for evaluation regarding persistent weakness. Patient presents for low blood pressure weakness dehydration persistent nausea vomiting. Patient placed she may have recurrence of pancreatitis she is also having some mild abdominal pain. Denying fevers. No diarrhea. Patient states this feels significantly weak and persistent dizziness MD Complaint: generalized weakness -: days(s) Location: generalized Severity: moderate Severity scale (1-10): 7 Consistency: constant Improves with: none Worsens with: none Context: recent illness, history of similar Associated Symptoms: confusion, nausea/vomiting - Related Data Home Medications Medication Instructions Recorded Confirmed Hydrocortisone 15 mg PO QAM 06/06/19 04/20/20 Hydrocortisone [Cortef] 7.5 mg PO HS 06/06/19 04/20/20 Metoprolol Tartrate [Lopressor] 50 mg PO Q12HR 11/04/19 04/20/20 cycloSPORINE 0.05% OPHTH SOLN 1 drop BOTH EYES Q12HR 11/04/19 04/20/20 [Restasis] Metoclopramide [Reglan] 5 mg PO TID 02/12/20 04/20/20 Evolocumab [Repatha Syringe] 140 mg SQ Q14D 04/20/20 04/20/20 Gabapentin 300 mg PO TID 04/20/20 04/20/20 Latanoprost [Xalatan 0.005%] 1 drop BOTH EYES HS 04/20/20 04/20/20 Pantoprazole [Protonix] 40 mg PO DAILY 04/20/20 04/20/20 Rivaroxaban [Xarelto] 20 mg PO HS 04/20/20 04/20/20 [place] 2 tab PO BID 04/20/20 04/20/20 Vascepa 2 gm PO BID 04/20/20 04/20/20 lisinopriL [Zestril] 20 mg PO DAILY 04/20/20 04/20/20 prednisoLONE ACETATE 1% OPHTH 1 drops BOTH EYES DAILY 04/20/20 04/20/20 [Pred Forte 1%] Previous Rx's Medication Instructions Recorded Aspirin 81 mg PO DAILY chew 04/23/20 Hydrocortisone [Cortef] 10 mg PO HS tab 04/23/20 Hydrocortisone [Cortef] 25 mg PO QAM tab 04/23/20 Allergies Allergy/AdvReac Type Severity Reaction Status Date / Time azathioprine [From Imuran] Allergy Vomiting Verified 04/20/20 10:11 codeine Allergy Nausea Verified 04/20/20 10:11 metronidazole [From Flagyl] Allergy Anaphylaxis Verified 04/20/20 10:11 methotrexate AdvReac Unknown Verified 04/20/20 10:11 Review of Systems ROS Statement: Those systems with pertinent positive or pertinent negative responses have been documented in the HPI. ROS Other: All systems not noted in ROS Statement are negative. 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 Last Myocardial Infarction Date:: 2015 History of Any Multi-Drug Resistant Organisms: None Reported Date of last positivie culture/infection: 2015 MDRO Source:: Stool Past Surgical History: Bowel Resection, Section, Heart Catheterization, Orthopedic Surgery Additional Past Surgical History / Comment(s): 10/21/19 Hartmans procedure/colostomy, ILEOSTOMY (DEC 2019), exploratory laparoscopies 3-4, right lung resection 2016, L humerus double compound fx repair, colonoscopy, hemor rhoidectomy, lithotripsy x 2. , 2/3 OF RIGHT LUNG LOBE REMOVED 2016. cataracts Past Anesthesia/Blood Transfusion Reactions: No Reported Reaction, Family History of Problems w/ Anesthesia Additional Past Anesthesia/Blood Transfusion Reaction / Comment(s): Pt has received blood in past without reaction. brother & sister have difficulty coming out of anesthesia. Past Psychological History: Depression Smoking Status: Former smoker Past Alcohol Use History: None Reported Past Drug Use History: Marijuana - Past Family History Mother Family Medical History: Coronary Artery Disease (CAD) Additional Family Medical History / Comment(s): Mother at age 78 with history of coronary artery disease status post multiple stents. Father Family Medical History: Myocardial Infarction (NH) Additional Family Medical History / Comment(s): Father at age 45 from myocardial infarction. Brother(s) Family Medical History: Hypertension Additional Family Medical History / Comment(s): Patient has 1 brother with hypertension and kidney stones. Sister(s) Family Medical History: No Reported History Additional Family Medical History / Comment(s): Patient has one sister with CHRONIC HYPERCOHDRIA AND GALLSTONES Daughter(s) Family Medical History: No Reported History Additional Family Medical History / Comment(s): . Course Vital Signs 05/08/20 05/09/20 22:50 01:34 Temperature 97.6 F Pulse Rate 95 79 Respiratory 18 18 Rate Blood Pressure 102/40 88/33 O2 Sat by Pulse 98 97 Oximetry - Reevaluation(s) Reevaluation #1: 05/09/20 01:53 Medical record is reviewed Reevaluation #2: 05/09/20 01:53 Patient is informed of results, questions are answered Reevaluation #3: 05/09/20 01:53 Patient is showing mild improvement here in the - Consultations Consultation #1: which is went to address spoke with Dr. Del Real regarding admission he is agreeable EKG Findings - EKG Comments: EKG Findings:: EKG shows sinus at 71, UT 132 QRS 68 QTc 478 Medical Decision Making - Medical Decision Making 60 female DF for evaluation patient presents today for evaluation regards to persistent significant weakness, [place] for resuscitation and electronically replacement - Lab Data Result diagrams: 05/09/20 00:01 05/09/20 00:01 Lab Results 05/09/20 05/09/20 05/09/20 Range/Units 00:01 00:01 00:01 WBC 14.4 H (3.8-10.6) k/uL RBC 4.19 (3.80-5.40) m/uL Hgb 11.4 (11.4-16.0) gm/dL Hct 35.3 (34.0-46.0) % MCV 84.3 D (80.0-100.0) fL MCH 27.1 (25.0-35.0) pg MCHC 32.2 (31.0-37.0) g/dL RDW 14.6 (11.5-15.5) % Plt Count 599 H (150-450) k/uL MPV 6.4 Neutrophils % 76 % Lymphocytes % 17 % Monocytes % 4 % Eosinophils % 1 % Basophils % 0 % Neutrophils # 11.0 H (1.3-7.7) k/uL Lymphocytes # 2.4 (1.0-4.8) k/uL Monocytes # 0.6 (0-1.0) k/uL Eosinophils # 0.1 (0-0.7) k/uL Basophils # 0.1 (0-0.2) k/uL PT 11.7 (9.0-12.0) sec INR 1.1 (<1.2) APTT 29.3 (22.0-30.0) sec Sodium 134 L (137-145) mmol/L Potassium 5.2 H (3.5-5.1) mmol/L Chloride 106 (98-107) mmol/L Carbon Dioxide 12 L (22-30) mmol/L Anion Gap 16 mmol/L BUN 40 H (7-17) mg/dL Creatinine 2.14 H (0.52-1.04) mg/dL Est GFR (CKD-EPI)AfAm 28 (>60 ml/min/1.73 sqM) Est GFR (CKD-EPI)NonAf 24 (>60 ml/min/1.73 sqM) Glucose 109 H (74-99) mg/dL Plasma Lactic Acid Jacobo (0.7-2.0) mmol/L Calcium 9.8 (8.4-10.2) mg/dL Phosphorus 6.7 H (2.5-4.5) mg/dL Magnesium 1.5 L (1.6-2.3) mg/dL Total Bilirubin 0.3 (0.2-1.3) mg/dL AST 19 (14-36) U/L ALT 20 (4-34) U/L Alkaline Phosphatase 73 (38-126) U/L Creatine Kinase 30 (30-135) U/L Troponin I (0.000-0.034) ng/mL NT-Pro-B Natriuret Pep pg/mL Total Protein 7.4 (6.3-8.2) g/dL Albumin 4.5 (3.5-5.0) g/dL Lipase 130 (23-300) U/L 05/09/20 05/09/20 05/09/20 Range/Units 00:01 00:01 00:01 WBC (3.8-10.6) k/uL RBC (3.80-5.40) m/uL Hgb (11.4-16.0) gm/dL Hct (34.0-46.0) % MCV (80.0-100.0) fL MCH (25.0-35.0) pg MCHC (31.0-37.0) g/dL RDW (11.5-15.5) % Plt Count (150-450) k/uL MPV Neutrophils % % Lymphocytes % % Monocytes % % Eosinophils % % Basophils % % Neutrophils # (1.3-7.7) k/uL Lymphocytes # (1.0-4.8) k/uL Monocytes # (0-1.0) k/uL Eosinophils # (0-0.7) k/uL Basophils # (0-0.2) k/uL PT (9.0-12.0) sec INR (<1.2) APTT (22.0-30.0) sec Sodium (137-145) mmol/L Potassium (3.5-5.1) mmol/L Chloride (98-107) mmol/L Carbon Dioxide (22-30) mmol/L Anion Gap mmol/L BUN (7-17) mg/dL Creatinine (0.52-1.04) mg/dL Est GFR (CKD-EPI)AfAm (>60 ml/min/1.73 sqM) Est GFR (CKD-EPI)NonAf (>60 ml/min/1.73 sqM) Glucose (74-99) mg/dL Plasma Lactic Acid Jacobo 1.9 (0.7-2.0) mmol/L Calcium (8.4-10.2) mg/dL Phosphorus (2.5-4.5) mg/dL Magnesium (1.6-2.3) mg/dL Total Bilirubin (0.2-1.3) mg/dL AST (14-36) U/L ALT (4-34) U/L Alkaline Phosphatase (38-126) U/L Creatine Kinase (30-135) U/L Troponin I <0.012 (0.000-0.034) ng/mL NT-Pro-B Natriuret Pep 133 pg/mL Total Protein (6.3-8.2) g/dL Albumin (3.5-5.0) g/dL Lipase (23-300) U/L - Radiology Data Radiology results: report reviewed (Chest x-rays negative for acute disease), image reviewed Disposition Clinical Impression: Intractable vomiting, Dehydration, Hyponatremia, Hypomagnesemia, ARF (acute renal failure) Disposition: ADMITTED IP TO THIS HOSP Condition: Good Is patient prescribed a controlled substance at d/c from ED?: No Referrals: None,Stated [Primary Care Provider] - 1-2 days
[2020-05-09 00:12] LABS: Basophils # (A) 0.1 k/uL (0-0.2); Basophils % (A) 0 %; Eosinophils # (A) 0.1 k/uL (0-0.7); Eosinophils % (A) 1 %; HCT 35.3 % (34.0-46.0); HGB 11.4 gm/dL (11.4-16.0); Lymphocytes # (A) 2.4 k/uL (1.0-4.8); Lymphocytes % (A) 17 %; MCH 27.1 pg (25.0-35.0); MCHC 32.2 g/dL (31.0-37.0); Mean Platelet Volume 6.4; Monocytes # (A) 0.6 k/uL (0-1.0); Monocytes % (A) 4 %; Neutrophils % (A) 76 %; Platelet Count 599 k/uL (150-450); RBC 4.19 m/uL (3.80-5.40); RDW 14.6 % (11.5-15.5); WBC 14.4 k/uL (3.8-10.6)
[2020-05-09 00:27] LABS: Albumin 4.5 g/dL (3.5-5.0); Calcium 9.8 mg/dL (8.4-10.2); Magnesium 1.5 mg/dL (1.6-2.3); Phosphorus 6.7 mg/dL (2.5-4.5); Potassium 5.2 mmol/L (3.5-5.1); Total Bilirubin 0.3 mg/dL (0.2-1.3); Total Protein 7.4 g/dL (6.3-8.2)
[2020-05-09 00:44] LABS: INR 1.1 (<1.2); Partial Thromboplastin Time 29.3 sec (22.0-30.0); Prothrombin Time 11.7 sec (9.0-12.0)
[2020-05-09 00:48] LABS: MCV 84.3 fL (80.0-100.0)
[2020-05-09] MEDS ORDERED: SODIUM CHLORIDE 0.9% 1,000 ML IV STA (01:49)
--- NOTE | 2020-05-09 02:17 | XR ---
EXAM: XR Chest, 2 Views CLINICAL HISTORY: Weakness. TECHNIQUE: Frontal and lateral views of the chest. COMPARISON: 10/28/2019. FINDINGS: Lungs: Pulmonary parenchyma are otherwise unremarkable. Pleural space: There is suggestion of a moderate right pleural effusion, similar to that noted on the previous study. No pneumothorax. Heart: Unremarkable. No cardiomegaly. Mediastinum: There is widening of the right paratracheal stripe, possibly the basilar postsurgical change, unchanged from the previous study. Bones/joints: Osteopenia. Vasculature: Cardiomediastinal silhouette is unremarkable. Minimal atherosclerotic disease of the thoracic aorta. IMPRESSION: 1. Moderate right pleural effusion, elevation of the right hemidiaphragm, and widening of the right paratracheal stripe, unchanged from 10/28/2019. 2. No significant new focal abnormalities. 3. Osteopenia.
[2020-05-09] MEDS: MAGNESIUM SULFATE-D5W PMX 1 GM in DEXTROSE/WATER 1 100ML.BAG IVPB SCH ×2 (02:32→03:28)
[2020-05-09 02:35] LABS: Appearance,Urine Clear (Clear); Bilirubin,Urine Negative (Negative); Blood,Urine Negative (Negative); Color,Urine Yellow; Glucose,Urine (UA) Negative (Negative); Hyaline Casts,Urine 10 /lpf (0-2); Ketones,Urine Negative (Negative); Leukocyte Esterase,Urine Small (Negative); Mucus,Urine Rare /hpf; Nitrite,Urine Negative (Negative); Protein,Urine Trace (Negative); RBC,Urine 1 /hpf (0-5); Urobilinogen,Urine <2.0 mg/dL (<2.0); WBC,Urine 6 /hpf (0-5)
[2020-05-09] MEDS ORDERED: MORPHINE SULFATE 4 MG/ML SYRINGE IV PRN (02:50)
[2020-05-09] MEDS ORDERED: ONDANSETRON 4 MG/2 ML VIAL IVP PRN (02:50)
[2020-05-09] MEDS ORDERED: NALOXONE 0.4 MG/ML 1 ML VIAL IV PRN (02:50)
[2020-05-09] MEDS: PANTOPRAZOLE 40 MG/10 ML VIAL IV SCH (08:40)
[2020-05-09 10:16] LABS: ALT 16 U/L (4-34); AST 19 U/L (14-36); African American GFR (CKD) 52 (>60 ml/min/1.73 sqM); Albumin 3.9 g/dL (3.5-5.0); Albumin/Globulin Ratio 1.5; Alkaline Phosphatase 68 U/L (38-126); Anion Gap 10 mmol/L; Blood Urea Nitrogen 30 mg/dL (7-17); Carbon Dioxide 14 mmol/L (22-30); Chloride 113 mmol/L (98-107); Globulin 2.6 g/dL; Glucose 98 mg/dL (74-99); Non-African American GFR(CKD) 45 (>60 ml/min/1.73 sqM); Potassium 4.5 mmol/L (3.5-5.1); Sodium 137 mmol/L (137-145); Total Bilirubin 0.3 mg/dL (0.2-1.3); Total Protein 6.5 g/dL (6.3-8.2)
[2020-05-09 10:19] LABS: Basophils % (A) 1 %; Eosinophils # (A) 0.1 k/uL (0-0.7); Eosinophils % (A) 1 %; HCT 33.7 % (34.0-46.0); HGB 10.2 gm/dL (11.4-16.0); Hypochromasia Marked; Lymphocytes # (A) 2.7 k/uL (1.0-4.8); Lymphocytes % (A) 38 %; MCH 26.6 pg (25.0-35.0); MCHC 30.4 g/dL (31.0-37.0); MCV 87.7 fL (80.0-100.0); Mean Platelet Volume 6.1; Monocytes # (A) 0.5 k/uL (0-1.0); Monocytes % (A) 7 %; Neutrophils # (A) 3.7 k/uL (1.3-7.7); Neutrophils % (A) 51 %; Platelet Count 541 k/uL (150-450); RBC 3.84 m/uL (3.80-5.40); RDW 14.7 % (11.5-15.5); WBC 7.3 k/uL (3.8-10.6)
--- NOTE | 2020-05-09 10:26 | P.HPIM ---
History of Present Illness H&P Date: 05/09/20 Chief Complaint: Abdominal pain nausea and vomiting This is a 60-year-old female patient of Dr. Alvarez with past medical history of diabetes mellitus type 2, Sudha granulomatosis, gastroesophageal reflux disease, hypertension, history of sigmoid diverticulitis with perforation and peritonitis status post Dong procedure and colostomy placement followed by possible phlegmon formation at the ostomy site and underwent IV antibiotic treatment with meropenem. Bedtime she was discharged to [facility] and was subsequently discharged from [facility] on November 20. She has had follow-up in the office and was doing great following that. Patient developed to have a si gnificant bowel pain and had no output through her ostomy she was admitted to the [facility] and subsequently she was transferred to [facility] for evaluation of exploratory laparotomy lysis of adhesion and takedown the colostomy with creation of loop ileostomy and mobilization of the splenic flexure with colo-proctostomy that was done on 01/03/[address] Lucas Blankenship , patient stayed in the hospital for quiet sometime her hospital course was complicated By right midline thrombus for which she was placed on Coumadin also with intractable nausea and vomiting and right-sided abdominal pain, was discharged from [facility] and sent home then she came back to our hospital with ileus and nausea and vomiting, then she recovered well, and she was switched from coumadin to xarelto as we could not regulate her INR, she was recently seen at our hospital back in 03/31/2020 for increased bowel pain associated with nausea and vomiting she was diagnosed with mild pancreatitis and she had a transient elevation of her troponin underwent heart catheterization was negative for coronary artery disease, ended up going home and came to my office and was seen as a follow-up, patient was doing fine she ended up coming to the emergency department yesterday because of increased at all. Dysphagia with nausea and vomiting and that she became quite a bit dehydrated she was started on IV fluid and she was admitted to the hospital for evaluation of her amylase and lipase were negative at this time she was not diagnosed with pancreatitis at this time, however she was admitted for IV fluid resuscitation. Review of Systems Constitutional: Reports weakness, Denies anorexia, Denies chronic headaches, Denies lethargy Eyes: denies blurred vision, denies bulging eye, denies decreased vision Ears, nose, mouth and throat: Denies dysphagia, Denies neck lump, Denies sore throat Cardiovascular: Denies chest pain, Denies decreased exercise tolerance, Denies dyspnea on exertion, Denies lightheadedness, Denies rapid heart beat, Denies shortness of breath, Denies syncope Respiratory: Denies congestion, Denies cough with sputum, Denies home oxygen, Denies sleep apnea, Denies snoring, Denies wheezing Gastrointestinal: Reports abdominal pain, Reports bloating, Reports change in bowel habits, Reports diarrhea, Reports indigestion, Reports loss of appetite, Reports nausea, Reports vomiting, Denies heartburn, Denies hematemesis, Denies hematochezia, Denies melena Genitourinary: Denies dysuria, Denies nocturia Menstruation: Reports postmenopausal Musculoskeletal: Denies myalgias Musculoskeletal: absent: ankle pain, ankle stiffness, ankle swelling, elbow pain, elbow stiffness, elbow swelling, foot pain, foot stiffness, foot swelling, hand pain, hand stiffness, hand swelling, hip pain, hip stiffness, hip swelling, knee pain, knee stiffness, knee swelling, shoulder pain, shoulder stiffness, shoulder swelling, wrist pain, wrist stiffness, wrist swelling Integumentary: Denies pruritus, Denies rash Neurological: Denies numbness, Denies weakness Psychiatric: Reports anxiety, Reports depression, Denies sadness/tearfulness, Denies sleep disturbances, Denies suicidal ideation Endocrine: Denies fatigue, Denies weight change Past Medical History Past Medical History: COPD, Diabetes Mellitus, Eye Disorder, GERD/Reflux, Hyperlipidemia, Hypertension, Myocardial Infarction (NM), Pneumonia, Respiratory Disorder Additional Past Medical History / Comment(s): Diverticulitis/perforation with colostomy September 2019 and ileostomy Dec 2019., vasculitis, HX SEVERE RIGHT LUNG INFECTION WITH RIGHT MIDDLE AND LOWER LOBE RESECTION., 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 (last dose Apr 2019)., eyes/nose/lungs affected by sudha's, bronchitis, "borderline" diabetes with elevated blood sugars only with steroids per pt, 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, adrenal insufficiency, nephrolithiasis past & present., silent [place] 2016, past endometriosis/ovarian cysts with multiple laparoscopies., states blod clot in right arm from midline IV inserted at [facility] in December 2019 Last Myocardial Infarction Date:: 2015 History of Any Multi-Drug Resistant Organisms: None Reported Date of last positivie culture/infection: 2014 MDRO Source:: Stool Past Surgical History: Bowel Resection, Section, Heart Catheterization, Orthopedic Surgery Additional Past Surgical History / Comment(s): 10/21/19 Hartmans procedure/colostomy, ILEOSTOMY (DEC 2019), exploratory laparoscopies 3-4, right lung resection 2016, L humerus double compound fx repair, colonoscopy, hemorrhoidectomy, lithotripsy x 2. , 2/3 OF RIGHT LUNG LOBE REMOVED 2016. cataracts Past Anesthesia/Blood Transfusion Reactions: No Reported Reaction, Family Hist ory of Problems w/ Anesthesia, Postoperative Nausea & Vomiting (PONV) Additional Past Anesthesia/Blood Transfusion Reaction / Comment(s): Pt has received blood in past without reaction. brother & sister have difficulty coming out of anesthesia. Past Psychological History: Depression Additional Psychological History / Comment(s): Pt resides alone with her cat in an apartment. She is independent. She states d/t recent colostomy/health issues, she has had an increase in depression but denies thoughts/plans of suicide. Pt is independent. Smoking Status: Former smoker Past Alcohol Use History: None Reported Additional Past Alcohol Use History / Comment(s): Pt started smoking in 1987 and quit in 2016 Past Drug Use History: Marijuana Additional Drug Use History / Comment(s): hx of occasional marijuana use for nausea - Past Family History Mother Family Medical History: Coronary Artery Disease (CAD) Additional Family Medical History / Comment(s): Mother at age 78 with history of coronary artery disease status post multiple stents. Father Family Medical History: Myocardial Infarction (NM) Additional Family Medical History / Comment(s): Father at age 45 from myocardial infarction. Brother(s) Family Medical History: Hypertension Additional Family Medical History / Comment(s): Patient has 1 brother with hypertension and kidney stones. Sister(s) Family Medical History: No Reported History Additional Family Medical History / Comment(s): Patient has one sister with CHRONIC HYPERCOHDRIA AND GALLSTONES Daughter(s) Family Medical History: No Reported History Additional Family Medical History / Comment(s): . Medications and Allergies Home Medications Medication Instructions Recorded Confirmed Type Metoprolol Tartrate [Lopressor] 50 mg PO Q12HR 11/04/19 05/09/20 History cycloSPORINE 0.05% OPHTH SOLN 1 drop BOTH EYES Q12HR 11/04/19 05/09/20 History [Restasis] Metoclopramide [Reglan] 5 mg PO TID 02/12/20 05/09/20 History Evolocumab [Repatha Syringe] 140 mg SQ Q14D 04/20/20 05/09/20 History Gabapentin 300 mg PO TID 04/20/20 05/09/20 History Latanoprost [Xalatan 0.005%] 1 drop BOTH EYES HS 04/20/20 05/09/20 History Pantoprazole [Protonix] 40 mg PO DAILY 04/20/20 05/09/20 History Rivaroxaban [Xarelto] 20 mg PO HS 04/20/20 05/09/20 History [place] 2 tab PO BID 04/20/20 05/09/20 History Vascepa 2 gm PO BID 04/20/20 05/09/20 History lisinopriL [Zestril] 20 mg PO DAILY 04/20/20 05/09/20 History prednisoLONE ACETATE 1% OPHTH 1 drops BOTH EYES DAILY 04/20/20 05/09/20 History [Pred Forte 1%] Aspirin 81 mg PO DAILY chew 04/23/20 05/09/20 Rx Hydrocortisone [Cortef] 25 mg PO QAM tab 04/23/20 05/09/20 Rx Hydrocortisone [Cortef] 15 mg PO HS 05/09/20 05/09/20 History Allergies Allergy/AdvReac Type Severity Reaction Status Date / Time azathioprine [From Imuran] Allergy Vomiting Verified 05/09/20 08:32 codeine Allergy Nausea Verified 05/09/20 08:32 metronidazole [From Flagyl] Allergy Anaphylaxis Verified 05/09/20 08:32 methotrexate AdvReac Unknown Verified 05/09/20 08:32 Physical Exam Vitals: Vital Signs Temp Pulse Pulse Resp BP BP Pulse Ox 05/09/20 04:44 97.5 F L 79 17 115/78 96 05/09/20 03:30 77 18 110/38 100 05/09/20 02:37 90 16 100/46 98 05/09/20 01:34 79 18 88/33 97 05/08/20 22:50 97.6 F 95 18 102/40 98 Intake and Output 05/08/20 05/09/20 05/09/20 22:59 06:59 14:59 Intake Total 100 Balance 100 Intake: Intake, IV Titration 100 Amount Magnesium Sulfate-D5w Pmx 100 1 gm In Dextrose/Water 1 100ml.bag @ 100 mls/hr IVPB Q1H [facility] Rx#: [id number] Other: Weight 75.296 kg Physical examination: HEENT: head is atraumatic normocephalic pupils were equal round reactive to light and accomodations, extra ocular muscle movement were intact, mucous membranes of the mouth are somewhat dry. Neck: supple no JVP. Chest: decrease breath sounds at the bases with few ronchi no expiratory wheezes, no chest wall tenderness or intercostal retraction. Heart: firs heart sound is depressed, second heart sound is normal, there is no gallop or murmur. Abdomen: distended, soft, mild tenderness in the lower abdomen there is ileostomy bag in place in left lower quadrant, no rebound or guarding positive bowel sounds. Extremities: there is no edema or calf tenderness, DP +2 bilaterally. Neurologic examination: patient is awake , alert and oriented X 3 CN II-XII are grossly intact, muscle power 5/5 in bilateral upper and lower extremities, Deep tendon reflexes are normal. Results CBC & Chem 7: 05/09/20 09:39 05/09/20 09:39 Labs: Abnormal Lab Results - Last 24 Hours (Table) 05/09/20 05/09/20 05/09/20 Range/Units 00:01 00:01 02:10 WBC 14.4 H (3.8-10.6) k/uL Plt Count 599 H (150-450) k/uL Neutrophils # 11.0 H (1.3-7.7) k/uL Sodium 134 L (137-145) mmol/L Potassium 5.2 H (3.5-5.1) mmol/L Carbon Dioxide 12 L (22-30) mmol/L BUN 40 H (7-17) mg/dL Creatinine 2.14 H (0.52-1.04) mg/dL Glucose 109 H (74-99) mg/dL Phosphorus 6.7 H (2.5-4.5) mg/dL Magnesium 1.5 L (1.6-2.3) mg/dL Urine Protein Trace H (Negative) Ur Leukocyte Esterase Small H (Negative) Urine WBC 6 H (0-5) /hpf Hyaline Casts 10 H (0-2) /lpf Urine Mucus Rare H (None) /hpf Thrombosis Risk Factor Assmnt - DVT/VTE Prophylaxis DVT/VTE Prophylaxis: Pharmacologic Prophylaxis ordered, Mechanical Prophylaxis ordered - Choose All That Apply Each Factor Represents 1 point: Abnormal pulmonary function (COPD), Obesity (BMI >25) Other Risk Factors: Yes Each Risk Factor Represents 2 Points: Age 61-74 years Each Risk Factor Represents 3 Points: Heparin-induced thrombocytopenia (HIT) Other congenital or acquired thrombophilia - If yes, enter type in comment: No Thrombosis Risk Factor Assessment Total Risk Factor Score: 7 Thrombosis Risk Factor Assessment Level: High Risk Assessment and Plan Assessment: Assessment and plan: 1. Acute kidney injury secondary to acute nausea vomiting with significant fluid loss creating acute tubular necrosis. We will start the patient on sodium bicarb drip D5W with 3 A of sodium bicarb at 200 mL an hour monitor the patient CMP input and output and daily weight. 2. Abdominal pain associated with nausea vomiting without evidence of acute pancreatitis. Continue IV fluid resuscitation, monitor the patient input and output and daily weight, we will recheck her amylase and lipase for the next 24 hours. 3. Post recent cataract surgery. we will con continue with current eye drops. 4. Status post Matos procedure with colostomy placement due to diverticulitis with perforation, and history of phlegmon at ostomy site, with a takedown of prior occluded colostomy with ileostomy placement that was just done at [facility] on 01/03/2020. 5. COPD without exacerbation. Continue albuterol every 4 hours as needed, Symbicort twice daily. 6. Adrenal insufficiency disorder. we will continue with Cortef 20 mg po in AM and 10 mg in PM. 7. History of [place] granulomatosis. we will continue to monitor and she cerrato been off Retuxan. 8. GERD. Continue patient on Protonix 40 mg IV push every 24 hours. 9. Hypertension and hypertensive cardiovascular disease. Continue with Metoprolol 50 mg orally bid and Liisnopril 20 mg orally daily. 10. Recurrent depression. Continue Cymbalta 20 mg orally daily. 11. History of DVT of the right upper extremity. Hold Xarelto currently on heparin drip. 12. DVT prophylaxis . continue wit Heparin drip. 13. GI prophylaxis. Continue Protonix 40 mg orally daily. 13. admits to inpatient. estimated length of stay 2 midnights. 14. Full code.
[2020-05-09] MEDS: DEXTROSE 5% IN WATER 1,000 ML with SODIUM BICARB (1 MEQ/ML) 150 ML IV SCH (11:42)
[2020-05-09] MEDS: GABAPENTIN 300 MG CAP PO SCH ×2 (16:03→20:27)
[2020-05-09] MEDS: METOCLOPRAMIDE 5 MG TAB PO SCH ×2 (16:03→20:28)
[2020-05-09] MEDS: METOPROLOL TARTRATE 50 MG TAB PO SCH (20:27)
[2020-05-09] MEDS: cycloSPORINE 0.05% OPHTH 0.4 ML DROPERETTE BOTH EYES SCH (20:30)
[2020-05-09] MEDS ORDERED: RIVAROXABAN 20 MG TAB PO SCH (21:00)
[2020-05-09] MEDS ORDERED: HYDROCORTISONE 10 MG TAB PO SCH (21:00)
[2020-05-09] MEDS ORDERED: LATANOPROST 0.005% OPHTH DROPS 2.5 ML BTL BOTH EYES SCH (21:00)
[2020-05-09] MEDS: VASCEPA 2 GM PO SCH (22:18)
[2020-05-10 05:11] VITALS: RESP 16
[2020-05-10] MEDS ORDERED: prednisoLONE ACETATE 1% OPHTH DROPS 5 ML BTL BOTH EYES SCH (09:00)
[2020-05-10] MEDS ORDERED: HYDROCORTISONE 10 MG TAB PO SCH (09:00)
[2020-05-10] MEDS ORDERED: ASPIRIN 81 MG PO SCH (09:00)
[2020-05-10] MEDS: DEXTROSE 5% IN WATER 1,000 ML with SODIUM BICARB (1 MEQ/ML) 150 ML IV SCH ×2 (09:24→10:44)
[2020-05-10] MEDS: GABAPENTIN 300 MG CAP PO SCH ×2 (09:25→16:17)
[2020-05-10 09:26] LABS: Basophils # (A) 0.05 X 10*3/uL (0.00-0.10); Basophils % (A) 0.9 %; Eosinophils # (A) 0.15 X 10*3/uL (0.04-0.35); Eosinophils % (A) 2.7 %; HCT 33.4 % (37.2-46.3); Lymphocytes # (A) 2.79 X 10*3/uL (0.90-5.00); Lymphocytes % (A) 50.2 %; MCH 27.2 pg (27.0-32.0); MCHC 29.9 g/dL (32.0-37.0); Monocytes % (A) 7.2 %; Neutrophils # (A) 2.16 X 10*3/uL (1.80-7.70); Neutrophils % (A) 38.8 %; Platelet Count 485 X 10*3/uL (140-440); RBC 3.67 X 10*6/uL (4.10-5.20); RDW 14.6 % (11.5-14.5); WBC 5.56 X 10*3/uL (4.50-10.00)
[2020-05-10] MEDS: METOPROLOL TARTRATE 50 MG TAB PO SCH (09:28)
[2020-05-10] MEDS: PANTOPRAZOLE 40 MG/10 ML VIAL IV SCH (09:28)
[2020-05-10] MEDS: cycloSPORINE 0.05% OPHTH 0.4 ML DROPERETTE BOTH EYES SCH (09:30)
[2020-05-10 09:52] LABS: African American GFR (CKD) 107.6 (60.0-200.0); Albumin 4.4 g/dL (3.80-4.90); Albumin/Globulin Ratio 2.93 (1.60-3.17); Anion Gap 8.5 mmol/L (4.00-12.00); BUN/Creat Ratio 27.14 Ratio (12.00-20.00); Calcium 8.9 mg/dL (8.7-10.3); Carbon Dioxide 22.5 mmol/L (21.6-31.8); Globulin 1.5 g/dL (1.6-3.3); Non-African American GFR(CKD) 92.9 (60.0-200.0); Potassium 4.4 mmol/L (3.5-5.5); Total Bilirubin 0.1 mg/dL (0.2-1.2); Total Protein 5.9 g/dL (6.2-8.2)
[2020-05-10] MEDS: METOCLOPRAMIDE 5 MG TAB PO SCH ×2 (10:42→16:16)
[2020-05-10] MEDS: VASCEPA 2 GM PO SCH (10:47)
[2020-05-10 12:28] VITALS: BP 165/96; PULSE 66; TEMP 98.3
--- NOTE | 2020-05-10 13:14 | P.DS ---
Providers Date of admission: 05/09/20 02:50 Expected date of discharge: 05/10/20 Attending physician: Connor Alvarez Primary care physician: Stated None Hospital Course: This is a 60-year-old female patient of Dr. Alvarez with past medical history of diabetes mellitus type 2, Curtis granulomatosis, gastroesophageal reflux disease, hypertension, history of sigmoid diverticulitis with perforation and peritonitis status post Dong procedure and colostomy placement followed by possible phlegmon formation at the ostomy site and underwent IV antibiotic treatment with meropenem. Bedtime she was discharged to [facility] and was subse quently discharged from [facility] on November 20. She has had follow-up in the office and was doing great following that. Patient developed to have a significant bowel pain and had no output through her ostomy she was admitted to the [facility] and subsequently she was transferred to [facility] for evaluation of exploratory laparotomy lysis of adhesion and takedown the colostomy with creation of loop ileostomy and mobilization of the splenic flexure with colo-proctostomy that was done on 01/03/[address] Lucas Blankenship , patient stayed in the hospital for quiet sometime her hospital course was complicated By right midline thrombus for which she was placed on Coumadin also with intractable nausea and vomiting and right-sided abdominal pain, was discharged from [facility] and sent home then she came back to our hospital with ileus and nausea and vomiting, then she recovered well, and she was switched from coumadin to xarelto as we could not regulate her INR, she was recently seen at our hospital back in 03/31/2020 for increased bowel pain associated with nausea and vomiting she was diagnosed with mild pancreatitis and she had a transient elevation of her troponin underwent heart catheterization was negative for coronary artery disease, ended up going home and came to my office and was seen as a follow-up, patient was doing fine she ended up coming to the emergency department yesterday because of increased at all. Dysphagia with nausea and vomiting and that she became quite a bit dehydrated she was started on IV fluid and she was admitted to the hospital for evaluation of her amylase and lipase were negative at this time she was not diagnosed with pancreatitis at this time, however she was admitted for IV fluid resuscitation. 05/10: Patient has been afebrile, heart rate 66, blood pressure 165/96 and pulse ox 90% on room air. Repeat blood work revealed hemoglobin of 10, BUN 19 and creatinine 0.7. Discussed with patient concern regarding depression and she is willing to start Zoloft 50 mg at bedtime and will be reassessed in the outpatient arena. Ostomy nurse will be working with her prior to discharge as she is having trouble keeping the ostomy bag on. Lisinopril will be discontinued at discharge. Patient will be discharged home today in stable condition. Discharge Diagnoses: 1. Acute kidney injury secondary to acute nausea vomiting with significant fluid loss creating acute tubular necrosis. 2. Abdominal pain associated with nausea vomiting without evidence of acute pancreatitis. 3. Post recent cataract surgery. we will con continue with current eye drops. 4. Status post Matos procedure with colostomy placement due to diverticulitis with perforation, and history of phlegmon at ostomy site, with a takedown of prior occluded colostomy with ileostomy placement that was just done at [facility] on 01/03/2020. 5. COPD without exacerbation. 6. Adrenal insufficiency disorder. 7. History of Holloway granulomatosis. 8. GERD. 9. Hypertension and hypertensive cardiovascular disease. 10. Recurrent depression. 11. History of DVT of the right upper extremity. Discharge plan: Home Impression and plan of care have been directed as dictated by the signing physician. Lanette Mccarthy nurse practitioner acting as scribe for signing physician. Patient Condition at Discharge: Good Plan - Discharge Summary New Discharge Prescriptions: New Sertraline [Zoloft] 50 mg PO HS #30 tab Continue cycloSPORINE 0.05% OPHTH SOLN [Restasis] 1 drop BOTH EYES Q12HR Metoprolol Tartrate [Lopressor] 50 mg PO Q12HR Metoclopramide [Reglan] 5 mg PO TID Latanoprost [Xalatan 0.005%] 1 drop BOTH EYES HS Rivaroxaban [Xarelto] 20 mg PO HS Pantoprazole [Protonix] 40 mg PO DAILY Evolocumab [Repatha Syringe] 140 mg SQ Q14D Gabapentin 300 mg PO TID prednisoLONE ACETATE 1% OPHTH [Pred Forte 1%] 1 drops BOTH EYES DAILY [place] 2 tab PO BID Vascepa 2 gm PO BID Aspirin 81 mg PO DAILY chew Hydrocortisone [Cortef] 25 mg PO QAM tab Hydrocortisone [Cortef] 15 mg PO HS Discontinued lisinopriL [Zestril] 20 mg PO DAILY Discharge Medication List Metoprolol Tartrate [Lopressor] 50 mg PO Q12HR 11/04/19 [History] cycloSPORINE 0.05% OPHTH SOLN [Restasis] 1 drop BOTH EYES Q12HR 11/04/19 [History] Metoclopramide [Reglan] 5 mg PO TID 02/12/20 [History] Evolocumab [Repatha Syringe] 140 mg SQ Q14D 04/20/20 [History] Gabapentin 300 mg PO TID 04/20/20 [History] Latanoprost [Xalatan 0.005%] 1 drop BOTH EYES HS 04/20/20 [History] Pantoprazole [Protonix] 40 mg PO DAILY 04/20/20 [History] Rivaroxaban [Xarelto] 20 mg PO HS 04/20/20 [History] [place] 2 tab PO BID 04/20/20 [History] Vascepa 2 gm PO BID 04/20/20 [History] prednisoLONE ACETATE 1% OPHTH [Pred Forte 1%] 1 drops BOTH EYES DAILY 04/20/20 [History] Aspirin 81 mg PO DAILY chew 04/23/20 [Rx] Hydrocortisone [Cortef] 25 mg PO QAM tab 04/23/20 [Rx] Hydrocortisone [Cortef] 15 mg PO HS 05/09/20 [History] Sertraline [Zoloft] 50 mg PO HS #30 tab 05/10/20 [Rx] Follow up Appointment(s)/Referral(s): Connor Alvarez MD [STAFF PHYSICIAN] - 05/17/20 10:00 am Patient Instructions/Handouts: Acute Kidney Injury (DC), Hyponatremia (DC), Hypomagnesemia (DC) Activity/Diet/Wound Care/Special Instructions: pt will need a cab ride home at time of d/c. Discharge Disposition: HOME SELF-CARE
[2020-05-22] MEDS ORDERED: NON FORMULARY DRUG (Evolocumab [Repatha Syringe] 140 MG/ML Syringe) SQ SCH (09:00)
== END 2020-05-10 17:10 | disposition home or self-care (01) ==
LOC: EC 22:40 → 5NMEDONC 05-09 02:50 → INTOOBSV 05-09 02:50 → UNDODISIN 05-10 17:10
PROVIDERS: ADMIT Internal Medicine; ATTEND Internal Medicine
DX: N17.0 Acute kidney failure with tubular necrosis (principal); R11.2 Nausea with vomiting, unspecified; J44.9 Chronic obstructive pulmonary disease, unspecified; K21.9 Gastro-esophageal reflux disease without esophagitis; I11.9 Hypertensive heart disease without heart failure; F33.9 Major depressive disorder, recurrent, unspecified; E86.0 Dehydration; R13.10 Dysphagia, unspecified; M31.30 Wegener's granulomatosis without renal involvement; E11.40 Type 2 diabetes mellitus with diabetic neuropathy, unspecified; I25.2 Old myocardial infarction; E66.9 Obesity, unspecified; Z68.32 Body mass index [BMI] 32.0-32.9, adult; D75.82 Heparin induced thrombocytopenia (HIT); E27.40 Unspecified adrenocortical insufficiency; E87.1 Hypo-osmolality and hyponatremia; E83.42 Hypomagnesemia; E78.5 Hyperlipidemia, unspecified; Z86.718 Personal history of other venous thrombosis and embolism; Z87.01 Personal history of pneumonia (recurrent); Z90.49 Acquired absence of other specified parts of digestive tract; Z87.891 Personal history of nicotine dependence; Z79.01 Long term (current) use of anticoagulants; Z79.899 Other long term (current) drug therapy; Z79.82 Long term (current) use of aspirin; Z88.5 Allergy status to narcotic agent; Z88.8 Allergy status to other drugs, medicaments and biological substances; Z88.1 Allergy status to other antibiotic agents; Z20.822 Contact with and (suspected) exposure to COVID-19; Z98.890 Other specified postprocedural states; Z82.49 Family history of ischemic heart disease and other diseases of the circulatory system; Z84.1 Family history of disorders of kidney and ureter
CPT/HCPCS: 96376; 96361 ×2; 96375; 96374; 99285; 36415; 93005; 83880; 80053 ×2; 82550; 83605; 83690; 83735; 84100; 84484; 85025 ×2; 85610; 85730; 81001; 87635; 71046; G0378 ×2; J3475; C9113 ×2

== ENCOUNTER 2020-06-20 21:16 | Emergency (ER) | payer BC, OTHER ==
[2020-06-20 22:21] VITALS: BP 150/92; PULSE 73; RESP 18; TEMP 98.2
[2020-06-21] MEDS ORDERED: CEPHALEXIN 500MG STARTER PACK 4 CAP BTL PO STA (01:03)
[2020-06-21] MEDS ORDERED: ACET/COD 300 MG/30 MG STARTER PACK 6 TAB BTL PO STA (01:03)
--- NOTE | 2020-06-21 01:15 | ED ---
General Adult HPI - General Chief complaint: Skin/Abscess/Foreign Body Stated complaint: Abdominal pain Source: patient Mode of arrival: wheelchair Limitations: no limitations - History of Present Illness Initial comments: 60-year-old female with a past medical history of hyperlipidemia, hypertension, COPD, diabetes mellitus, colostomy presents to the emergency room for a chief complaint of irritation around the colostomy site. Patient states that this has been ongoing for about a week. If she called her primary care provider who told her to spray Flonase on this. Patient states this irritated it more. Patient doesn't that she started using new cream a week ago right before this started. She denies fevers. Patient has no other complaints at this time including joesph rtness of breath, chest pain, abdominal pain, nausea or vomiting, headache, or visual changes. - Related Data Home Medications Medication Instructions Recorded Confirmed Metoprolol Tartrate [Lopressor] 50 mg PO Q12HR 11/04/19 05/09/20 cycloSPORINE 0.05% OPHTH SOLN 1 drop BOTH EYES Q12HR 11/04/19 05/09/20 [Restasis] Metoclopramide [Reglan] 5 mg PO TID 02/12/20 05/09/20 Evolocumab [Repatha Syringe] 140 mg SQ Q14D 04/20/20 05/09/20 Gabapentin 300 mg PO TID 04/20/20 05/09/20 Latanoprost [Xalatan 0.005%] 1 drop BOTH EYES HS 04/20/20 05/09/20 Pantoprazole [Protonix] 40 mg PO DAILY 04/20/20 05/09/20 Rivaroxaban [Xarelto] 20 mg PO HS 04/20/20 05/09/20 [place] 2 tab PO BID 04/20/20 05/09/20 Vascepa 2 gm PO BID 04/20/20 05/09/20 prednisoLONE ACETATE 1% OPHTH 1 drops BOTH EYES DAILY 04/20/20 05/09/20 [Pred Forte 1%] Hydrocortisone [Cortef] 15 mg PO HS 05/09/20 05/09/20 Previous Rx's Medication Instructions Recorded Aspirin 81 mg PO DAILY chew 04/23/20 Hydrocortisone [Cortef] 25 mg PO QAM tab 04/23/20 Sertraline [Zoloft] 50 mg PO HS #30 tab 05/10/20 Allergies Allergy/AdvReac Type Severity Reaction Status Date / Time azathioprine [From Imuran] Allergy Vomiting Verified 06/20/20 22:22 codeine Allergy Nausea Verified 06/20/20 22:22 metronidazole [From Flagyl] Allergy Anaphylaxis Verified 06/20/20 22:22 methotrexate AdvReac Unknown Verified 06/20/20 22:22 Review of Systems ROS Statement: Those systems with pertinent positive or pertinent negative responses have been documented in the HPI. ROS Other: All systems not noted in ROS Statement are negative. 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, adrenal insufficiency, nephrolithiasis past & present., silent [place] 2015, past endometriosis/ovarian cysts with multiple laparoscopies., states blod clot in right arm from midline IV inserted at [facility] in December 2019 Last Myocardial Infarction Date:: 2015 History of Any Multi-Drug Resistant Organisms: None Reported Date of last positivie culture/infection: 2014 MDRO Source:: Stool Past Surgical History: Bowel Resection, Section, Heart Catheterization, Orthopedic Surgery Additional Past Surgical History / Comment(s): 10/21/19 Hartmans procedure/colostomy, ILEOSTOMY (DEC 2019), exploratory laparoscopies 3-4, right lung resection 2016, L humerus double compound fx repair, colonoscopy, hemorrhoidectomy, lithotripsy x 2. , 2/3 OF RIGHT LUNG LOBE REMOVED 2016. cataracts Past Anesthesia/Blood Transfusion Reactions: No Reported Reaction, Family History of Problems w/ Anesthesia, Postoperative Nausea & Vomiting (PONV) Additional Past Anesthesia/Blood Transfusion Reaction / Comment(s): Pt has received blood in past without reaction. brother & sister have difficulty com ing out of anesthesia. Past Psychological History: Depression Smoking Status: Former smoker Past Alcohol Use History: None Reported Past Drug Use History: Marijuana - Past Family History Mother Family Medical History: Coronary Artery Disease (CAD) Additional Family Medical History / Comment(s): Mother at age 78 with history of coronary artery disease status post multiple stents. Father Family Medical History: Myocardial Infarction ([place]) Additional Family Medical History / Comment(s): Father at age 45 from myocardial infarction. Brother(s) Family Medical History: Hypertension Additional Family Medical History / Comment(s): Patient has 1 brother with hypertension and kidney stones. Sister(s) Family Medical History: No Reported History Additional Family Medical History / Comment(s): Patient has one sister with CHRONIC HYPERCOHDRIA AND GALLSTONES Daughter(s) Family Medical History: No Reported History Additional Family Medical History / Comment(s): . General Exam Limitations: no limitations General appearance: alert, in no apparent distress Head exam: Present: atraumatic, normocephalic, normal inspection Eye exam: Present: normal appearance, PERRL, EOMI. Absent: scleral icterus, conjunctival injection, periorbital swelling ENT exam: Present: normal exam, mucous membranes moist Neck exam: Present: normal inspection, full ROM. Absent: tenderness, meningismus, lymphadenopathy Respiratory exam: Present: normal lung sounds bilaterally. Absent: respiratory distress, wheezes, rales, rhonchi, stridor Cardiovascular Exam: Present: regular rate, normal rhythm, normal heart sounds. Absent: systolic murmur, diastolic murmur, rubs, gallop, clicks GI/Abdominal exam: Present: soft, normal bowel sounds, other (stoma does have skin breakdown on the skin inferior to the stoma. there is mild surrounding redness). Absent: distended, tenderness, guarding, rebound, rigid Neurological exam: Present: alert Course Vital Signs 06/20/20 22:16 Temperature 98.2 F Pulse Rate 73 Respiratory 18 Rate Blood Pressure 150/92 O2 Sat by Pulse 100 Oximetry Medical Decision Making - Medical Decision Making We will start patient on Keflex as she does have surrounding redness. We will give the patient Tylenol 3 for pain. I did discuss discontinuing new cream as this could've caused irritation. Patient does have a lidocaine cream that she can put on the skin however was directed not to put this on the stoma as it could absorb this. At this time patient will follow up with her doctor. She'll return here for any worsening symptoms. Disposition Clinical Impression: Rash, Skin erosion Disposition: HOME SELF-CARE Condition: Good Instructions (If sedation given, give patient instructions): Colostomy Care (ED) Additional Instructions: You can apply the lidocaine cream 3-4 times per day only on the skin. Do not get this on the stoma. Take Tylenol 3 for pain at night as needed. Follow-up with her primary care doctor. Return to the emergency room for any worsening symptoms. Is patient prescribed a controlled substance at d/c from ED?: No Referrals: Connor Alvarez MD [Primary Care Provider] - 1-2 days Time of Disposition: 01:13
== END 2020-06-21 01:32 | disposition home or self-care (01) ==
LOC: EC 21:16
DX: L98.9 Disorder of the skin and subcutaneous tissue, unspecified (principal); R21 Rash and other nonspecific skin eruption; J44.9 Chronic obstructive pulmonary disease, unspecified; E11.40 Type 2 diabetes mellitus with diabetic neuropathy, unspecified; K21.9 Gastro-esophageal reflux disease without esophagitis; E78.5 Hyperlipidemia, unspecified; I10 Essential (primary) hypertension; I25.2 Old myocardial infarction; F32.9 Major depressive disorder, single episode, unspecified; Z87.891 Personal history of nicotine dependence; Z79.82 Long term (current) use of aspirin
CPT/HCPCS: 99282

== ENCOUNTER 2020-06-30 17:18 | Emergency (ER) | payer OTHER ==
[2020-06-30 17:42] VITALS: RESP 18
[2020-06-30] MEDS ORDERED: SODIUM CHLORIDE 0.9% 1,000 ML IV STA (19:02)
[2020-06-30] MEDS ORDERED: PROCHLORPERAZINE INJ 10 MG/2 ML VIAL IVP STA (19:31)
[2020-06-30] MEDS ORDERED: HYDROCORTISONE SUCCINATE 100 MG/2 ML VIAL IV STA (19:31)
[2020-06-30 19:55] LABS: Basophils % (A) 1 %; Eosinophils # (A) 0.3 k/uL (0-0.7); Eosinophils % (A) 3 %; HCT 36.1 % (34.0-46.0); Lymphocytes # (A) 2.3 k/uL (1.0-4.8); Lymphocytes % (A) 25 %; MCH 28.2 pg (25.0-35.0); MCHC 33.2 g/dL (31.0-37.0); MCV 84.9 fL (80.0-100.0); Mean Platelet Volume 6.6; Monocytes # (A) 0.5 k/uL (0-1.0); Monocytes % (A) 6 %; Neutrophils # (A) 5.8 k/uL (1.3-7.7); Neutrophils % (A) 65 %; Platelet Count 561 k/uL (150-450); RBC 4.25 m/uL (3.80-5.40); RDW 15.5 % (11.5-15.5)
[2020-06-30 20:06] LABS: Albumin 4.1 g/dL (3.5-5.0); Calcium 9.5 mg/dL (8.4-10.2); Potassium 4.1 mmol/L (3.5-5.1); Total Bilirubin 0.3 mg/dL (0.2-1.3); Total Protein 6.5 g/dL (6.3-8.2)
[2020-06-30 20:07] LABS: Appearance,Urine Clear (Clear); Bilirubin,Urine Negative (Negative); Blood,Urine Negative (Negative); Color,Urine Yellow; Glucose,Urine (UA) Negative (Negative); Ketones,Urine Negative (Negative); Leukocyte Esterase,Urine Negative (Negative); Nitrite,Urine Negative (Negative); PH, Urine 5.5 (5.0-8.0); Protein,Urine Trace (Negative); Specific Gravity,Urine 1.012 (1.001-1.035); Urobilinogen,Urine <2.0 mg/dL (<2.0)
--- NOTE | 2020-06-30 21:00 | XR ---
EXAM: Abdomen radiograph. HISTORY: Nausea and vomiting. History of recent procedure. TECHNIQUE: Upright AP view. COMPARISON: 01/25/2020. FINDINGS: There is contrast opacification of the right colon with mild distention. There is a nonobstructive pa ttern. Stent overlying the pelvis is seen. There are no pathologic calcifications. No acute osseous a bnormality seen. IMPRESSION: Mild colonic distention with residual contrast opacification and nonobstructive pattern.
[2020-06-30 21:26] VITALS: BP 142/92; PULSE 94; TEMP 98.6
--- NOTE | 2020-06-30 21:36 | ED ---
Nausea/Vomiting/Diarrhea HPI - General Chief complaint: Nausea/Vomiting/Diarrhea Stated complaint: N&V Source: patient, EMS Mode of arrival: ambulatory Limitations: no limitations - History of Present Illness Initial comments: Patient is a 60-year-old female with multiple medical conditions who presents to the ER with reported nausea and vomiting. Patient reports a history of sigmoid diverticulitis with perforation and peritonitis. She is status post Dong procedure and colostomy placement. She had possible phlegmon inform patient at the ostomy site and underwent exploratory laparotomy, lysis of adhesions and takedown of the colostomy with creation of a loop ileostomy by Dr. Blankenship. Patient also had a flexible sigmoidoscopy with stent placement [address]es that she has had a small appetite however her nausea and vomiting have been minimal. Denies changes in her ostomy output. He should states that she has had intractable nausea and vomiting today even after taking her home Reglan. She called her surgeon who stated that she needed ER evaluation. She denies hematemesis. No melenic output or hematochezia. Denies any fevers or chills. No abdominal pain. Chest pain or shortness of breath. No other alleviating, Perceptin or modifying factors - Related Data Home Medications Medication Instructions Recorded Confirmed Metoprolol Tartrate [Lopressor] 50 mg PO Q12HR 11/04/19 05/09/20 cycloSPORINE 0.05% OPHTH SOLN 1 drop BOTH EYES Q12HR 11/04/19 05/09/20 [Restasis] Metoclopramide [Reglan] 5 mg PO TID 02/12/20 05/09/20 Evolocumab [Repatha Syringe] 140 mg SQ Q14D 04/20/20 05/09/20 Gabapentin 300 mg PO TID 04/20/20 05/09/20 Latanoprost [Xalatan 0.005%] 1 drop BOTH EYES HS 04/20/20 05/09/20 Pantoprazole [Protonix] 40 mg PO DAILY 04/20/20 05/09/20 Rivaroxaban [Xarelto] 20 mg PO HS 04/20/20 05/09/20 [place] 2 tab PO BID 04/20/20 05/09/20 Vascepa 2 gm PO BID 04/20/20 05/09/20 prednisoLONE ACETATE 1% OPHTH 1 drops BOTH EYES DAILY 04/20/20 05/09/20 [Pred Forte 1%] Hydrocortisone [Cortef] 15 mg PO HS 05/09/20 05/09/20 Previous Rx's Medication Instructions Recorded Aspirin 81 mg PO DAILY chew 04/23/20 Hydrocortisone [Cortef] 25 mg PO QAM tab 04/23/20 Sertraline [Zoloft] 50 mg PO HS #30 tab 05/10/20 Prochlorperazine [Compazine] 10 mg PO Q8H PRN #15 tab 06/30/20 Allergies Allergy/AdvReac Type Severity Reaction Status Date / Time azathioprine [From Imuran] Allergy Vomiting Verified 06/30/20 17:37 codeine Allergy Nausea Verified 06/30/20 17:37 metronidazole [From Flagyl] Allergy Anaphylaxis Verified 06/30/20 17:37 methotrexate AdvReac Unknown Verified 06/30/20 17:37 Review of Systems ROS Statement: Those systems with pertinent positive or pertinent negative responses have been documented in the HPI. ROS Other: All systems not noted in ROS Statement are negative. Past Medical History Past Medical History: COPD, Diabetes Mellitus, Eye Disorder, GERD/Reflux, Hyp erlipidemia, Hypertension, Myocardial Infarction ([place]), Pneumonia, Respiratory Disorder Additional Past Medical History / Comment(s): Diverticulitis/perforation with colostomy September 2019 and ileostomy Dec 2019., vasculitis, HX SEVERE RIGHT LUNG INFECTION WITH RIGHT MIDDLE AND LOWER LOBE RESECTION., 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 (last dose Apr 2019)., eyes/nose/lungs affected by sudha's, bronchitis, "borderline" diabetes with elevated blood sugars only with steroids per pt, 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, adrenal insufficiency, nephrolithiasis past & present., silent [place] 2016, past endometriosis/ovarian cysts with multiple laparoscopies., states blod clot in right arm from midline IV inserted at [facility] in December 2019 Last Myocardial Infarction Date:: 2016 History of Any Multi-Drug Resistant Organisms: C-DIFF Date of last positivie culture/infection: 2015 MDRO Source:: Stool Past Surgical History: Bowel Resection, Section, Heart Catheterization, Orthopedic Surgery Additional Past Surgical History / Comment(s): 10/21/19 Hartmans procedure/colostomy, ILEOSTOMY (DEC 2019), exploratory laparoscopies 3-4, right lung resection 2016, L humerus double compound fx repair, colonoscopy, hemorrhoidectomy, lithotripsy x 2. , 2/3 OF RIGHT LUNG LOBE REMOVED 2016. cataracts Past Anesthesia/Blood Transfusion Reactions: No Reported Reaction, Family History of Problems w/ Anesthesia, Postoperative Nausea & Vomiting (PONV) Additional Past Anesthesia/Blood Transfusion Reaction / Comment(s): Pt has received blood in past without reaction. brother & sister have difficulty coming out of anesthesia. Past Psychological History: Depression Smoking Status: Former smoker Past Alcohol Use History: None Reported Past Drug Use History: Marijuana - Past Family History Mother Family Medical History: Coronary Artery Disease (CAD) Additional Family Medical History / Comment(s): Mother at age 78 with history of coronary artery disease status post multiple stents. Father Family Medical History: Myocardial Infarction ([place]) Additional Family Medical History / Comment(s): Father at age 45 from myocardial infarction. Brother(s) Family Medical History: Hypertension Additional Family Medical History / Comment(s): Patient has 1 brother with hypertension and kidney stones. Sister(s) Family Medical History: No Reported History Additional Family Medical History / Comment(s): Patient has one sister with CHRONIC HYPERCOHDRIA AND GALLSTONES Daughter(s) Family Medical History: No Reported History Additional Family Medical History / Comment(s): . General Exam Limitations: no limitations Course Vital Signs 06/30/20 06/30/20 17:37 21:24 Temperature 99.0 F 98.6 F Pulse Rate 92 94 Respiratory 18 18 Rate Blood Pressure 165/75 142/92 O2 Sat by Pulse 97 97 Oximetry Medical Decision Making - Medical Decision Making On arrival patient was placed into room 29. There are history and physical exam was performed. IV is established. Patient given a liter bolus of normal saline, 100 mg of hydrocortisone due to her history of adrenal insufficiency and 10 mg of Compazine. Laboratory studies were conducted and reviewed with the patient. Patient is reevaluated and reports marked improvement in her symptoms. She is able to eat something in the emergency department. Requesting discharge home. I will provide her with a short prescription for Compazine. Take the medications as directed and follow-up with her surgeon. Return to the emergency room for any worsening symptoms. X-ray performed which demonstrates nonobstructive pattern at this time. Patient did agree to this. Patient discharged home with strict return parameters - Lab Data Result diagrams: 06/30/20 19:34 06/30/20 19:34 Lab Results 06/30/20 06/30/20 06/30/20 Range/Units 19:34 19:34 19:34 WBC 9.0 (3.8-10.6) k/uL RBC 4.25 (3.80-5.40) m/uL Hgb 12.0 (11.4-16.0) gm/dL Hct 36.1 (34.0-46.0) % MCV 84.9 (80.0-100.0) fL MCH 28.2 (25.0-35.0) pg MCHC 33.2 (31.0-37.0) g/dL RDW 15.5 (11.5-15.5) % Plt Count 561 H (150-450) k/uL MPV 6.6 Neutrophils % 65 % Lymphocytes % 25 % Monocytes % 6 % Eosinophils % 3 % Basophils % 1 % Neutrophils # 5.8 (1.3-7.7) k/uL Lymphocytes # 2.3 (1.0-4.8) k/uL Monocytes # 0.5 (0-1.0) k/uL Eosinophils # 0.3 (0-0.7) k/uL Basophils # 0.0 (0-0.2) k/uL Sodium 140 (137-145) mmol/L Potassium 4.1 (3.5-5.1) mmol/L Chloride 108 H (98-107) mmol/L Carbon Dioxide 20 L (22-30) mmol/L Anion Gap 12 mmol/L BUN 16 (7-17) mg/dL Creatinine 0.87 (0.52-1.04) mg/dL Est GFR (CKD-EPI)AfAm 83 (>60 ml/min/1.73 sqM) Est GFR (CKD-EPI)NonAf 72 (>60 ml/min/1.73 sqM) Glucose 109 H (74-99) mg/dL Plasma Lactic Acid Jacobo (0.7-2.0) mmol/L Calcium 9.5 (8.4-10.2) mg/dL Total Bilirubin 0.3 (0.2-1.3) mg/dL AST 19 (14-36) U/L ALT 15 (4-34) U/L Alkaline Phosphatase 78 (38-126) U/L Total Protein 6.5 (6.3-8.2) g/dL Albumin 4.1 (3.5-5.0) g/dL Lipase 100 (23-300) U/L Urine Color Yellow Urine Appearance Clear (Clear) Urine pH 5.5 (5.0-8.0) Ur Specific [place] 1.012 (1.001-1.035) Urine Protein Trace H (Negative) Urine Glucose (UA) Negative (Negative) Urine Ketones Negative (Negative) Urine Blood Negative (Negative) Urine Nitrite Negative (Negative) Urine Bilirubin Negative (Negative) Urine Urobilinogen <2.0 (<2.0) mg/dL Ur Leukocyte Esterase Negative (Negative) 06/30/20 Range/Units 19:34 WBC (3.8-10.6) k/uL RBC (3.80-5.40) m/uL Hgb (11.4-16.0) gm/dL Hct (34.0-46.0) % MCV (80.0-100.0) fL MCH (25.0-35.0) pg MCHC (31.0-37.0) g/dL RDW (11.5-15.5) % Plt Count (150-450) k/uL MPV Neutrophils % % Lymphocytes % % Monocytes % % Eosinophils % % Basophils % % Neutrophils # (1.3-7.7) k/uL Lymphocytes # (1.0-4.8) k/uL Monocytes # (0-1.0) k/uL Eosinophils # (0-0.7) k/uL Basophils # (0-0.2) k/uL Sodium (137-145) mmol/L Potassium (3.5-5.1) mmol/L Chloride (98-107) mmol/L Carbon Dioxide (22-30) mmol/L Anion Gap mmol/L BUN (7-17) mg/dL Creatinine (0.52-1.04) mg/dL Est GFR (CKD-EPI)AfAm (>60 ml/min/1.73 sqM) Est GFR (CKD-EPI)NonAf (>60 ml/min/1.73 sqM) Glucose (74-99) mg/dL Plasma Lactic Acid Jacobo 1.2 (0.7-2.0) mmol/L Calcium (8.4-10.2) mg/dL Total Bilirubin (0.2-1.3) mg/dL AST (14-36) U/L ALT (4-34) U/L Alkaline Phosphatase (38-126) U/L Total Protein (6.3-8.2) g/dL Albumin (3.5-5.0) g/dL Lipase (23-300) U/L Urine Color Urine Appearance (Clear) Urine pH (5.0-8.0) Ur Specific [place] (1.001-1.035) Urine Protein (Negative) Urine Glucose (UA) (Negative) Urine Ketones (Negative) Urine Blood (Negative) Urine Nitrite (Negative) Urine Bilirubin (Negative) Urine Urobilinogen (<2.0) mg/dL Ur Leukocyte Esterase (Negative) Disposition Clinical Impression: Nausea & vomiting Disposition: HOME SELF-CARE Condition: Stable Instructions (If sedation given, give patient instructions): Acute Nausea and Vomiting (ED) Additional Instructions: Please follow up with your PCP in 2-4 days. Return to the ED for any new or worsening symptoms. Prescriptions: Prochlorperazine [Compazine] 10 mg PO Q8H PRN #15 tab PRN Reason: Nausea Is patient prescribed a controlled substance at d/c from ED?: No Referrals: Connor Alvarez MD [Primary Care Provider] - 1-2 days Time of Disposition: 21:36
== END 2020-06-30 21:50 | disposition home or self-care (01) ==
LOC: EC 17:18
DX: R11.2 Nausea with vomiting, unspecified (principal); J44.9 Chronic obstructive pulmonary disease, unspecified; E11.9 Type 2 diabetes mellitus without complications; K21.9 Gastro-esophageal reflux disease without esophagitis; E78.5 Hyperlipidemia, unspecified; I10 Essential (primary) hypertension; I25.2 Old myocardial infarction; F32.9 Major depressive disorder, single episode, unspecified; F12.90 Cannabis use, unspecified, uncomplicated; Z79.82 Long term (current) use of aspirin; Z79.899 Other long term (current) drug therapy
CPT/HCPCS: 36415; 80053; 83605; 83690; 85025; 81003; 74018; 99284; 96374; 96375; 96361; J0780; J1720

== ENCOUNTER → 2020-07-06 | Outpatient (CLI) | payer OTHER ==
[2020-07-06 20:03] LABS: Chol/HDL Ratio 2.85; LDL Cholesterol,Calculated 31.6 mg/dL (0.0-131.0); Uric Acid 8.1 mg/dL (2.9-7.7); VLDL Calculation 53.4 mg/dL (5.00-40.00)
[2020-07-06 20:11] LABS: T4, Free (Free Thyroxine) 1.2 ng/dL (0.80-1.80)
[2020-07-06 20:47] LABS: Hemoglobin A1C 5.8 % (4.0-6.0)
== END | disposition home or self-care (01) ==
LOC: LABWHC1 09:02
PROVIDERS: ATTEND Internal Medicine
DX: E78.2 Mixed hyperlipidemia (principal); E27.40 Unspecified adrenocortical insufficiency; M31.31 Wegener's granulomatosis with renal involvement
CPT/HCPCS: 36415; 80061; 82024; 82533; 83036; 84439; 84443; 84550

== ENCOUNTER → 2020-08-05 | Outpatient (CLI) | payer OTHER ==
--- NOTE | 2020-08-05 12:46 | MR ---
EXAMINATION TYPE: MR pituitary wo/w con DATE OF EXAM: 08/05/2020 11:56 AM COMPARISON: NONE HISTORY: Other adrenal corticol over activity. CONTRAST: Patient received 7 mL intravenous Gadavist gadolinium contrast. Multiplanar MultiSpin echo imaging of the pituitary fossa was performed. Unenhanced followed by cont rast enhanced images are submitted. The unenhanced portion of the study fails to demonstrate evidence for hyperintense pituitary lesion. The pituitary gland is of normal size .Following contrast administration there is a small 2 mm filli ng defect within the right portion of the pituitary gland which may reflect microadenoma. Pituitary s talk is midline. Suprasellar cistern is unremarkable without evidence for mass. Optic chiasm has a normal appearance. Cavernous sinus including the carotid vessels appear to be within normal limits. IMPRESSION: 1. Correlate for tiny pituitary microadenoma.
== END | disposition home or self-care (01) ==
LOC: RADMRIMAIN 10:56
PROVIDERS: ATTEND Internal Medicine
DX: E27.0 Other adrenocortical overactivity (principal)
CPT/HCPCS: 70553; A9585

== ENCOUNTER 2020-09-15 18:12 | Emergency (ER) | payer OTHER ==
[2020-09-15 18:57] VITALS: TEMP 97.9
[2020-09-15] MEDS ORDERED: HYDROmorphone 0.5 MG/0.5 ML SYRINGE IVP STA (19:14)
[2020-09-15] MEDS ORDERED: SODIUM CHLORIDE 0.9% 1,000 ML IV STA (19:14)
[2020-09-15] MEDS ORDERED: ONDANSETRON 4 MG/2 ML VIAL IVP STA ×2 (19:14→22:39)
--- NOTE | 2020-09-15 20:07 | ED ---
Abdominal Pain HPI - General Chief Complaint: Abdominal Pain Stated Complaint: post op abd pain, vomiting Time Seen by Provider: 09/15/20 18:58 Source: patient Mode of arrival: wheelchair Limitations: no limitations - History of Present Illness Initial Comments: 60 year-old female patient who is post op day #6 after having ileostomy reversal at [facility] comes in for evaluation of abdominal pain and vomiting. Patient states she was doing well post surgery until today. States around 1100am she started having generalized abdominal pain. Around 5pm she started to have vomiting. Family member states she has only had a small amount of liquids today. Patient states she is not passing gas. Denies any fever or chills. Denies any urinary symptoms. Patient denies any recent rash, cough, shortness of breath, chest pain, back pain, numbness, tingling, dizziness, weakness, hematuria, dysuria, urinary urgency, urinary frequency, headache, visual changes, or any other complaints. - Related Data Home Medications Medication Instructions Recorded Confirmed Metoprolol Tartrate [Lopressor] 50 mg PO Q12HR 11/04/19 05/09/20 cycloSPORINE 0.05% OPHTH SOLN 1 drop BOTH EYES Q12HR 11/04/19 05/09/20 [Restasis] Metoclopramide [Reglan] 5 mg PO TID 02/12/20 05/09/20 Evolocumab [Repatha Syringe] 140 mg SQ Q14D 04/20/20 05/09/20 Gabapentin 300 mg PO TID 04/20/20 05/09/20 Latanoprost [Xalatan 0.005%] 1 drop BOTH EYES HS 04/20/20 05/09/20 Pantoprazole [Protonix] 40 mg PO DAILY 04/20/20 05/09/20 Rivaroxaban [Xarelto] 20 mg PO HS 04/20/20 05/09/20 [place] 2 tab PO BID 04/20/20 05/09/20 Vascepa 2 gm PO BID 04/20/20 05/09/20 prednisoLONE ACETATE 1% OPHTH 1 drops BOTH EYES DAILY 04/20/20 05/09/20 [Pred Forte 1%] Hydrocortisone [Cortef] 15 mg PO HS 05/09/20 05/09/20 Previous Rx's Medication Instructions Recorded Aspirin 81 mg PO DAILY chew 04/23/20 Hydrocortisone [Cortef] 25 mg PO QAM tab 04/23/20 Sertraline [Zoloft] 50 mg PO HS #30 tab 05/10/20 Prochlorperazine [Compazine] 10 mg PO Q8H PRN #15 tab 06/30/20 Allergies Allergy/AdvReac Type Severity Reaction Status Date / Time azathioprine [From Imuran] Allergy Vomiting Verified 09/15/20 18:57 codeine Allergy Nausea Verified 09/15/20 18:57 metronidazole [From Flagyl] Allergy Anaphylaxis Verified 09/15/20 18:57 acetaminophen [From [place]] AdvReac Nausea Verified 09/15/20 18:58 hydrocodone [From [place]] AdvReac Nausea Verified 09/15/20 18:58 methotrexate AdvReac Unknown Verified 09/15/20 18:57 Review of Systems ROS Statement: Those systems with pertinent positive or pertinent negative responses have been documented in the HPI. ROS Other: All systems not noted in ROS Statement are negative. 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, adrenal insufficiency, nephrolithiasis past & present., silent [place] 2015, past endometriosis/ovarian cysts with multiple laparoscopies., states blod clot in right arm from midline IV inserted at [place] in December 2019 Last Myocardial Infarction Date:: 2016 History of Any Multi-Drug Resistant Organisms: C-DIFF Date of last positivie culture/infection: 2015 MDRO Source:: Stool Past Surgical History: Bowel Resection, Section, Heart Catheterization, Orthopedic Surgery Additional Past Surgical History / Comment(s): 10/21/19 Hartmans procedure/colostomy, ILEOSTOMY (DEC 2019), exploratory laparoscopies 3-4, right lung resection 2016, L humerus double compound fx repair, colonoscopy, h emorrhoidectomy, lithotripsy x 2. , 2/3 OF RIGHT LUNG LOBE REMOVED 2016. cataracts Past Anesthesia/Blood Transfusion Reactions: No Reported Reaction, Family History of Problems w/ Anesthesia, Postoperative Nausea & Vomiting (PONV) Additional Past Anesthesia/Blood Transfusion Reaction / Comment(s): Pt has received blood in past without reaction. brother & sister have difficulty coming out of anesthesia. Past Psychological History: Depression Smoking Status: Former smoker Past Alcohol Use History: None Reported Past Drug Use History: Marijuana - Past Family History Mother Family Medical History: Coronary Artery Disease (CAD) Additional Family Medical History / Comment(s): Mother at age 78 with history of coronary artery disease status post multiple stents. Father Family Medical History: Myocardial Infarction ([place]) Additional Family Medical History / Comment(s): Father at age 45 from myocardial infarction. Brother(s) Family Medical History: Hypertension Additional Family Medical History / Comment(s): Patient has 1 brother with hypertension and kidney stones. Sister(s) Family Medical History: No Reported History Additional Family Medical History / Comment(s): Patient has one sister with CHRONIC HYPERCOHDRIA AND GALLSTONES Daughter(s) Family Medical History: No Reported History Additional Family Medical History / Comment(s): . General Exam Limitations: no limitations General appearance: alert, in no apparent distress, other (Physical well- developed, well-nourished adult female patient in no acute distress. Vital signs upon presentation are temperature 97.9F, pulse 94, respirations 20, blood pressure 177/84, pulse ox 99% on room air.) Eye exam: Present: normal appearance, PERRL, EOMI. Absent: scleral icterus, conjunctival injection, periorbital swelling ENT exam: Present: normal exam, normal oropharynx, mucous membranes moist Respiratory exam: Present: normal lung sounds bilaterally. Absent: respiratory distress, wheezes, rales, rhonchi, stridor Cardiovascular Exam: Present: regular rate, normal rhythm, normal heart sounds. Absent: systolic murmur, diastolic murmur, rubs, gallop, clicks GI/Abdominal exam: Present: soft, tenderness (Generalized), normal bowel sounds, other (There is incision noted to the left abdomen which is well approximated with no evidence or erythema or drainage.). Absent: distended, guarding, rebound, rigid Neurological exam: Present: alert, oriented X3, CN II-XII intact Psychiatric exam: Present: normal affect, normal mood Skin exam: Present: warm, dry, intact, normal color. Absent: rash Course Vital Signs 09/15/20 09/15/20 09/15/20 18:51 20:38 22:00 Temperature 97.9 F Pulse Rate 94 95 94 Respiratory 20 20 20 Rate Blood Pressure 177/84 174/20 188/92 O2 Sat by Pulse 99 94 L 95 Oximetry 09/15/20 22:52 Temperature Pulse Rate 80 Respiratory 18 Rate Blood Pressure 168/84 O2 Sat by Pulse 98 Oximetry Medical Decision Making - Medical Decision Making 60-year-old female patient presents to the emergency department today for evaluation of increased abdominal pain and vomiting. She is postop day #6 after having ileostomy reversal [facility] with Dr. Zavala. Labs here were unremarkable, white blood cell count is normal. She is afebrile normal vital signs. CT abdomen and pelvis was obtained and did show evidence for fluid collection at the surgical site which could be seroma versus hematoma versus abscess. Also had evidence for colonic wall thickening consistent with colitis and possible partial bowel obstruction. We will give Zosyn for possibility of abscess. I did discuss results and 90 with the patient. We did discuss transfer ring her back to [facility] for further evaluation by her surgeon, she is agreeable with this plan. I did speak to the emergency department today with Dr. Rider who accepts transfer. Case discussed with my attending Dr. Grewal. - Lab Data Result diagrams: 09/15/20 20:11 09/15/20 20:11 Lab Results 09/15/20 09/15/20 09/15/20 Range/Units 20:11 20:11 20:11 WBC 9.9 (3.8-10.6) k/uL RBC 3.82 (3.80-5.40) m/uL Hgb 11.1 L (11.4-16.0) gm/dL Hct 33.4 L (34.0-46.0) % MCV 87.5 (80.0-100.0) fL MCH 29.0 (25.0-35.0) pg MCHC 33.1 (31.0-37.0) g/dL RDW 15.0 (11.5-15.5) % Plt Count 575 H (150-450) k/uL MPV 6.4 Neutrophils % 73 % Lymphocytes % 18 % Monocytes % 5 % Eosinophils % 2 % Basophils % 0 % Neutrophils # 7.2 (1.3-7.7) k/uL Lymphocytes # 1.8 (1.0-4.8) k/uL Monocytes # 0.5 (0-1.0) k/uL Eosinophils # 0.2 (0-0.7) k/uL Basophils # 0.0 (0-0.2) k/uL Sodium 138 (137-145) mmol/L Potassium 3.7 (3.5-5.1) mmol/L Chloride 104 (98-107) mmol/L Carbon Dioxide 27 (22-30) mmol/L Anion Gap 7 mmol/L BUN 17 (7-17) mg/dL Creatinine 0.65 (0.52-1.04) mg/dL Est GFR (CKD-EPI)AfAm >90 (>60 ml/min/1.73 sqM) Est GFR (CKD-EPI)NonAf >90 (>60 ml/min/1.73 sqM) Glucose 116 H (74-99) mg/dL Plasma Lactic Acid Jacobo (0.7-2.0) mmol/L Calcium 9.1 (8.4-10.2) mg/dL Total Bilirubin 0.3 (0.2-1.3) mg/dL AST 27 (14-36) U/L ALT 23 (4-34) U/L Alkaline Phosphatase 100 (38-126) U/L Troponin I (0.000-0.034) ng/mL Total Protein 6.2 L (6.3-8.2) g/dL Albumin 3.9 (3.5-5.0) g/dL Lipase 93 (23-300) U/L Urine Color Light Yellow Urine Appearance Clear (Clear) Urine pH 5.5 (5.0-8.0) Ur Specific [place] 1.012 (1.001-1.035) Urine Protein Negative (Negative) Urine Glucose (UA) Negative (Negative) Urine Ketones Negative (Negative) Urine Blood Negative (Negative) Urine Nitrite Negative (Negative) Urine Bilirubin Negative (Negative) Urine Urobilinogen <2.0 (<2.0) mg/dL Ur Leukocyte Esterase Negative (Negative) 09/15/20 09/15/20 Range/Units 20:11 20:11 WBC (3.8-10.6) k/uL RBC (3.80-5.40) m/uL Hgb (11.4-16.0) gm/dL Hct (34.0-46.0) % MCV (80.0-100.0) fL MCH (25.0-35.0) pg MCHC (31.0-37.0) g/dL RDW (11.5-15.5) % Plt Count (150-450) k/uL MPV Neutrophils % % Lymphocytes % % Monocytes % % Eosinophils % % Basophils % % Neutrophils # (1.3-7.7) k/uL Lymphocytes # (1.0-4.8) k/uL Monocytes # (0-1.0) k/uL Eosinophils # (0-0.7) k/uL Basophils # (0-0.2) k/uL Sodium (137-145) mmol/L Potassium (3.5-5.1) mmol/L Chloride (98-107) mmol/L Carbon Dioxide (22-30) mmol/L Anion Gap mmol/L BUN (7-17) mg/dL Creatinine (0.52-1.04) mg/dL Est GFR (CKD-EPI)AfAm (>60 ml/min/1.73 sqM) Est GFR (CKD-EPI)NonAf (>60 ml/min/1.73 sqM) Glucose (74-99) mg/dL Plasma Lactic Acid [place] 1.0 (0.7-2.0) mmol/L Calcium (8.4-10.2) mg/dL Total Bilirubin (0.2-1.3) mg/dL AST (14-36) U/L ALT (4-34) U/L Alkaline Phosphatase (38-126) U/L Troponin I <0.012 (0.000-0.034) ng/mL Total Protein (6.3-8.2) g/dL Albumin (3.5-5.0) g/dL Lipase (23-300) U/L Urine Color Urine Appearance (Clear) Urine pH (5.0-8.0) Ur Specific [place] (1.001-1.035) Urine Protein (Negative) Urine Glucose (UA) (Negative) Urine Ketones (Negative) Urine Blood (Negative) Urine Nitrite (Negative) Urine Bilirubin (Negative) Urine Urobilinogen (<2.0) mg/dL Ur Leukocyte Esterase (Negative) - Radiology Data Radiology results: report reviewed, image reviewed CT pelvis with contrast was obtained. Report is reviewed in its entirety. Impression by Dr. Gillis shows compared to last exam has been surgery at the ileostomy with reduction of the large parastomal hernia. There is possible her persistent hernia on the abdominal wall. This fluid collection could also be seroma or hematoma or abscess. There is wall thickening and mild edema involving the large bowel suggestive of some nonspecific colitis which is a change compared to old exam. There is change in diameter at the lower sigmoid colon and partial obstruction is possible. Disposition Clinical Impression: Abdominal pain, Vomiting, Partial bowel obstruction Disposition: OTHER INSTITUTION NOT DEFINED Condition: Serious Referrals: Connor Alvarez MD [Primary Care Provider] - 1-2 days - Out of Hospital Transfer - Req. Specs Out of Hospital Transfer - Requested Specifics: Other Emergency Center ([facility])
[2020-09-15 20:32] LABS: Basophils % (A) 0 %; Eosinophils # (A) 0.2 k/uL (0-0.7); Eosinophils % (A) 2 %; HCT 33.4 % (34.0-46.0); HGB 11.1 gm/dL (11.4-16.0); Lymphocytes # (A) 1.8 k/uL (1.0-4.8); Lymphocytes % (A) 18 %; MCHC 33.1 g/dL (31.0-37.0); MCV 87.5 fL (80.0-100.0); Mean Platelet Volume 6.4; Monocytes # (A) 0.5 k/uL (0-1.0); Monocytes % (A) 5 %; Neutrophils # (A) 7.2 k/uL (1.3-7.7); Neutrophils % (A) 73 %; Platelet Count 575 k/uL (150-450); RBC 3.82 m/uL (3.80-5.40); WBC 9.9 k/uL (3.8-10.6)
[2020-09-15 20:41] LABS: ALT 23 U/L (4-34); AST 27 U/L (14-36); African American GFR (CKD) >90 (>60 ml/min/1.73 sqM); Albumin 3.9 g/dL (3.5-5.0); Alkaline Phosphatase 100 U/L (38-126); Anion Gap 7 mmol/L; Blood Urea Nitrogen 17 mg/dL (7-17); Calcium 9.1 mg/dL (8.4-10.2); Carbon Dioxide 27 mmol/L (22-30); Chloride 104 mmol/L (98-107); Glucose 116 mg/dL (74-99); Lipase 93 U/L (23-300); Non-African American GFR(CKD) >90 (>60 ml/min/1.73 sqM); Sodium 138 mmol/L (137-145); Total Bilirubin 0.3 mg/dL (0.2-1.3); Total Protein 6.2 g/dL (6.3-8.2)
[2020-09-15 20:46] LABS: Potassium 3.7 mmol/L (3.5-5.1)
[2020-09-15 22:08] LABS: Appearance,Urine Clear (Clear); Bilirubin,Urine Negative (Negative); Blood,Urine Negative (Negative); Color,Urine Light Yellow; Glucose,Urine (UA) Negative (Negative); Ketones,Urine Negative (Negative); Leukocyte Esterase,Urine Negative (Negative); Nitrite,Urine Negative (Negative); PH, Urine 5.5 (5.0-8.0); Protein,Urine Negative (Negative); Specific Gravity,Urine 1.012 (1.001-1.035); Urobilinogen,Urine <2.0 mg/dL (<2.0)
[2020-09-15] MEDS ORDERED: HYDROmorphone 1 MG/ML 1 ML SYRINGE IVP STA (22:20)
--- NOTE | 2020-09-15 22:27 | CT ---
EXAMINATION TYPE: CT abdomen pelvis w con DATE OF EXAM: 09/15/2020 COMPARISON: 04/20/2020 HISTORY: Abdominal pain, recenty ileostomy reversal 09/09. CT DLP: 1209.5 mGycm Automated exposure control for dose reduction was used. CONTRAST: Performed with IV Contrast, patient injected with 100 mL of Isovue 300. There is some mild subsegmental atelectasis at the lung bases. Heart size is normal. There is no pleu ral effusion. Liver spleen stomach pancreas appear intact. Bile ducts are not dilated. Gallbladder ap pears normal. There is no adrenal mass. Kidneys show satisfactory contrast opacification. There are multiple bilate ral renal calculi that measure up to 6 mm. There is no hydronephrosis. Delayed images show normal merry al excretion. There is no retroperitoneal adenopathy. Ureters are not dilated. Bladder shows small am ount of air consistent with catheterization. Uterus is anteverted. There is no inguinal hernia. There is diffuse edema involving the sigmoid colon. There is also some mild wall thickening of the tr ansverse colon. Appendix appears normal. There is subcutaneous fluid collection in the left anterior abdomen containing air bubbles that measures 5.6 x 2.3 cm at the ileostomy site. This could be a loop of bowel in the hernia sac at the previous site of the ileostomy. There are surgical clips in the sm all bowel in the left mid abdomen. There is no evidence of pneumoperitoneum. There is broad-based umb ilical hernia that contains small bowel without incarceration. There is no ascites. Lumbar vertebra have normal alignment. Posterior elements are intact. Bony pelvis is intact. Hip join ts are intact. IMPRESSION: Compared to last exam there has been surgery at the ileostomy with reduction of the large parastomal hernia. There is possible persistent hernia on the abdominal wall. This fluid collection could also b e seroma or hematoma or abscess. There is wall thickening and mild edema involving the large bowel suggestive of some nonspecific coli tis which is a change compared to old exam. There is change in diameter at the lower sigmoid colon An d partial obstruction is also possible. This is seen on axial image 59.
[2020-09-15 22:53] VITALS: BP 168/84; PULSE 80; RESP 18
[2020-09-16] MEDS ORDERED: PIPERACILLIN-TAZOBACTAM 3.375 GM in SODIUM CHLORIDE 0.9% 100 ML IVPB ONE ×2
== END 2020-09-16 01:24 | disposition other institution (70) ==
LOC: EC 18:12
DX: K56.600 Partial intestinal obstruction, unspecified as to cause (principal); E11.9 Type 2 diabetes mellitus without complications; E78.5 Hyperlipidemia, unspecified; F32.9 Major depressive disorder, single episode, unspecified; I10 Essential (primary) hypertension; I25.2 Old myocardial infarction; J44.9 Chronic obstructive pulmonary disease, unspecified; K21.9 Gastro-esophageal reflux disease without esophagitis; F12.90 Cannabis use, unspecified, uncomplicated; Z95.5 Presence of coronary angioplasty implant and graft; Z87.891 Personal history of nicotine dependence; Z87.442 Personal history of urinary calculi; Z93.3 Colostomy status; Z79.82 Long term (current) use of aspirin
CPT/HCPCS: 36415; 80053; 83605; 83690; 84484; 85025; 81003; 74177; 99285; 96374; 96375; 96376 ×2; 96361 ×2; J2543; J2405; J1170 ×2; Q9967

== ENCOUNTER 2020-09-21 14:52 | Emergency (ER) | payer OTHER ==
[2020-09-21 15:07] VITALS: BP 113/63; PULSE 98; RESP 17; TEMP 98
--- NOTE | 2020-09-21 15:26 | ED ---
General Adult HPI - General Chief complaint: Wound/Laceration Stated complaint: Needs dressing changed Time Seen by Provider: 09/21/20 15:08 Source: patient Mode of arrival: ambulatory Limitations: no limitations - History of Present Illness Initial comments: Laquita is a stay 1-year-old female who presents to the emergency department today for a dressing change. Patient has recently underwent an ileostomy reversal, she subsequently developed abdominal pain there was concern for abscess so she had a CT guided drain placement at [facility]. Patient remain in the hospital for IV hydration and was discharged home on Sunday. After discharge home it was concluded that there is no home health care nurse availability therefore she had no one to change her dressing so she came to the ER for dressing change. Patient states that she has no dressing materials at home and her surgeon office could not see her today. - Related Data Home Medications Medication Instructions Recorded Confirmed Metoprolol Tartrate [Lopressor] 50 mg PO Q12HR 11/04/19 05/09/20 cycloSPORINE 0.05% OPHTH SOLN 1 drop BOTH EYES Q12HR 11/04/19 05/09/20 [Restasis] Metoclopramide [Reglan] 5 mg PO TID 02/12/20 05/09/20 Evolocumab [Repatha Syringe] 140 mg SQ Q14D 04/20/20 05/09/20 Gabapentin 300 mg PO TID 04/20/20 05/09/20 Latanoprost [Xalatan 0.005%] 1 drop BOTH EYES HS 04/20/20 05/09/20 Pantoprazole [Protonix] 40 mg PO DAILY 04/20/20 05/09/20 Rivaroxaban [Xarelto] 20 mg PO HS 04/20/20 05/09/20 [employer] [place] 2 tab PO BID 04/20/20 05/09/20 Vascepa 2 gm PO BID 04/20/20 05/09/20 prednisoLONE ACETATE 1% OPHTH 1 drops BOTH EYES DAILY 04/20/20 05/09/20 [Pred Forte 1%] Hydrocortisone [Cortef] 15 mg PO HS 05/09/20 05/09/20 Previous Rx's Medication Instructions Recorded Aspirin 81 mg PO DAILY chew 04/23/20 Hydrocortisone [Cortef] 25 mg PO QAM tab 04/23/20 Sertraline [Zoloft] 50 mg PO HS #30 tab 05/10/20 Prochlorperazine [Compazine] 10 mg PO Q8H PRN #15 tab 06/30/20 Allergies Allergy/AdvReac Type Severity Reaction Status Date / Time azathioprine [From Imuran] Allergy Vomiting Verified 09/15/20 18:57 codeine Allergy Nausea Verified 09/15/20 18:57 metronidazole [From Flagyl] Allergy Anaphylaxis Verified 09/15/20 18:57 acetaminophen [From [place]] AdvReac Nausea Verified 09/15/20 18:58 hydrocodone [From [place]] AdvReac Nausea Verified 09/15/20 18:58 methotrexate AdvReac Unknown Verified 09/15/20 18:57 Review of Systems ROS Statement: Those systems with pertinent positive or pertinent negative responses have been documented in the HPI. ROS Other: All systems not noted in ROS Statement are negative. 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, adrenal insufficiency, nephrolithiasis past & present., silent [place] [id number], past endometriosis/ovarian cysts with multiple laparoscopies., states blod clot in right arm from midline IV inserted at [place] in December 2019 Last Myocardial Infarction Date:: 2016 History of Any Multi-Drug Resistant Organisms: C-DIFF Date of last positivie culture/infection: 2015 MDRO Source:: Stool Past Surgical History: Bowel Resection, Section, Heart Catheterization, Orthopedic Surgery Additional Past Surgical History / Comment(s): 10/21/19 Hartmans procedure/colostomy, ILEOSTOMY (DEC 2019), exploratory laparoscopies 3-4, right lung resection 2016, L humerus double compound fx repair, colonoscopy, hemorrhoidectomy, lithotripsy x 2. , 2/3 OF RIGHT LUNG LOBE REMOVED 2016. cataracts Past Anesthesia/Blood Transfusion Reactions: No Reported Reaction, Family History of Problems w/ Anesthesia, Postoperative Nausea & Vomiting (PONV) Additional Past Anesthesia/Blood Transfusion Reaction / Comment(s): Pt has received blood in past without reaction. brother & sister have difficulty coming out of anesthesia. Past Psychological History: Depression Smoking Status: Former smoker Past Alcohol Use History: None Reported Past Drug Use History: Marijuana - Past Family History Mother Family Medical History: Coronary Artery Disease (CAD) Additional Family Medical History / Comment(s): Mother at age 78 with history of coronary artery disease status post multiple stents. Father Family Medical History: Myocardial Infarction ([place]) Additional Family Medical History / Comment(s): Father at age 45 from myocardial infarction. Brother(s) Family Medical History: Hypertension Additional Family Medical History / Comment(s): Patient has 1 brother with hypertension and kidney stones. Sister(s) Family Medical History: No Reported History Additional Family Medical History / Comment(s): Patient has one sister with CHRONIC HYPERCOHDRIA AND GALLSTONES Daughter(s) Family Medical History: No Reported History Additional Family Medical History / Comment(s): . General Exam - General Exam Comments Initial Comments: Physical Exam GENERAL: Patient is well-developed and well-nourished. Patient is nontoxic and well-hydrated and is in no distress. HENT: Normocephalic, Atraumatic. EYES: PERRL, EOMI PULMONARY: Unlabored respirations. CARDIOVASCULAR: RRR Warm and well perfused extremities ABDOMEN: Non-distended SKIN: Well healing closed ostomy site in LLQ Drain in place LLQ, minimal serous drainage in bag : Deferred NEUROLOGIC: Alert and oriented Normal speech Normal gait MUSCULOSKELETAL: Moving all extremities with no apparent injury PSYCHIATRIC: No SI/HI Limitations: no limitations Course Vital Signs 09/21/20 15:04 Temperature 98.0 F Pulse Rate 98 Respiratory 17 Rate Blood Pressure 113/63 O2 Sat by Pulse 97 Oximetry Medical Decision Making - Medical Decision Making The patient was seen and evaluated history is obtained from the patient, a new dressing was placed, patient was educated on dressing change and provided with supplies. Return parameters were discussed patient is to follow up with her surgeon. Disposition Clinical Impression: Visit for wound check Disposition: HOME SELF-CARE Condition: Stable Instructions (If sedation given, give patient instructions): [facility] (ED) Is patient prescribed a controlled substance at d/c from ED?: No Referrals: Connor Alvarez MD [Primary Care Provider] - 1-2 days
== END 2020-09-21 15:42 | disposition home or self-care (01) ==
LOC: EC 14:52
DX: Z48.01 Encounter for change or removal of surgical wound dressing (principal); J44.9 Chronic obstructive pulmonary disease, unspecified; I10 Essential (primary) hypertension; E11.40 Type 2 diabetes mellitus with diabetic neuropathy, unspecified; K21.9 Gastro-esophageal reflux disease without esophagitis; E78.5 Hyperlipidemia, unspecified; I25.2 Old myocardial infarction; F32.9 Major depressive disorder, single episode, unspecified; F12.90 Cannabis use, unspecified, uncomplicated; Z87.891 Personal history of nicotine dependence; Z79.82 Long term (current) use of aspirin; Z79.01 Long term (current) use of anticoagulants; Z93.2 Ileostomy status
CPT/HCPCS: 99282

== ENCOUNTER 2020-10-06 18:45 | Emergency (ER) | payer OTHER ==
[2020-10-06 18:52] VITALS: TEMP 99
[2020-10-06] MEDS ORDERED: diphenhydrAMINE 50 MG/ML 1 ML VIAL IVP STA (19:13)
[2020-10-06] MEDS ORDERED: METOCLOPRAMIDE 5 MG/ML 2 ML VIAL IVP STA (19:13)
[2020-10-06] MEDS ORDERED: SODIUM CHLORIDE 0.9% 1,000 ML IV STA (19:13)
--- NOTE | 2020-10-06 19:18 | ED ---
Nausea/Vomiting/Diarrhea HPI - General Chief complaint: Nausea/Vomiting/Diarrhea Stated complaint: nausea, vomiting-post drain removal Time Seen by Provider: 10/06/20 19:02 Source: EMS Mode of arrival: EMS Limitations: no limitations - History of Present Illness Initial comments: 60 year-old female patient presents to the emergency department today for e valuation of nausea and vomiting. Patient has history of bowel perforation, had reversal of her ileostomy from that on September 08. On Sunday she had drain removed after developing a seroma. States she was doing well until yesterday when she had nausea throughout the day. States she had little intake. Woke this morning with abdominal cramping and nausea. Did attempt to drink a protein shake this evening and vomited three times afterward. Denies any hematemesis. Patient states she had minimal bowel movement today but has not been eating for the last couple of days. She denies passing gas states she has never passed gas in her "60 years of life". She denies fever or chills. Denies hematochezia or melena. States she did take reglan early this morning, received zofran in the ambulance. Still feels nauseated. Patient denies any recent rash, cough, shortness of breath, chest pain, back pain, numbness, tingling, dizziness, weakness, hematuria, dysuria, urinary urgency, urinary frequency, headache, visual changes, or any other complaints. - Related Data Home Medications Medication Instructions Recorded Confirmed Metoprolol Tartrate [Lopressor] 50 mg PO Q12HR 11/04/19 05/09/20 cycloSPORINE 0.05% OPHTH SOLN 1 drop BOTH EYES Q12HR 11/04/19 05/09/20 [Restasis] Metoclopramide [Reglan] 5 mg PO TID 02/12/20 05/09/20 Evolocumab [Repatha Syringe] 140 mg SQ Q14D 04/20/20 05/09/20 Gabapentin 300 mg PO TID 04/20/20 05/09/20 Latanoprost [Xalatan 0.005%] 1 drop BOTH EYES HS 04/20/20 05/09/20 Pantoprazole [Protonix] 40 mg PO DAILY 04/20/20 05/09/20 Rivaroxaban [Xarelto] 20 mg PO HS 04/20/20 05/09/20 [place] 2 tab PO BID 04/20/20 05/09/20 Vascepa 2 gm PO BID 04/20/20 05/09/20 prednisoLONE ACETATE 1% OPHTH 1 drops BOTH EYES DAILY 04/20/20 05/09/20 [Pred Forte 1%] Hydrocortisone [Cortef] 15 mg PO HS 05/09/20 05/09/20 Previous Rx's Medication Instructions Recorded Aspirin 81 mg PO DAILY chew 04/23/20 Hydrocortisone [Cortef] 25 mg PO QAM tab 04/23/20 Sertraline [Zoloft] 50 mg PO HS #30 tab 05/10/20 Prochlorperazine [Compazine] 10 mg PO Q8H PRN #15 tab 06/30/20 Amoxic-Pot Clav 875-125Mg 1 tab PO Q12HR #20 tablet 10/06/20 [Augmentin 875-125] Ondansetron [Zofran ODT] 4 mg PO Q8HR PRN #20 tab 10/06/20 Allergies Allergy/AdvReac Type Severity Reaction Status Date / Time azathioprine [From Imuran] Allergy Vomiting Verified 10/06/20 18:47 codeine Allergy Nausea Verified 10/06/20 18:47 metronidazole [From Flagyl] Allergy Anaphylaxis Verified 10/06/20 18:47 acetaminophen [From [place]] AdvReac Nausea Verified 10/06/20 18:47 hydrocodone [From [place]] AdvReac Nausea Verified 10/06/20 18:47 methotrexate AdvReac Unknown Verified 10/06/20 18:47 Review of Systems ROS Statement: Those systems with pertinent positive or pertinent negative responses have been documented in the HPI. ROS Other: All systems not noted in ROS Statement are negative. 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, adrenal insufficiency, nephrolithiasis past & present., silent CO 2016, past endometriosis/ovarian cysts with multiple laparoscopies., states blod clot in right arm from midline IV inserted at [facility] in December 2019 Last Myocardial Infarction Date:: 2015 History of Any Multi-Drug Resistant Organisms: C-DIFF Date of last positivie culture/infection: 2014 MDRO Source:: Stool Past Surgical History: Bowel Resection, Section, Heart Catheterization, Orthopedic Surgery Additional Past Surgical History / Comment(s): 10/21/19 [facility] procedure/colostomy, ILEOSTOMY (DEC 2019), exploratory laparoscopies 3-4, right lung resection 2016, L humerus double compound fx repair, colonoscopy, hemorrhoidectomy, lithotripsy x 2. , 2/3 OF RIGHT LUNG LOBE REMOVED 2016. cataracts, reversal of ileostomy Past Anesthesia/Blood Transfusion Reactions: No Reported Reaction, Family History of Problems w/ Anesthesia, Postoperative Nausea & Vomiting (PONV) Additional Past Anesthesia/Blood Transfusion Reaction / Comment(s): Pt has received blood in past without reaction. brother & sister have difficulty coming out of anesthesia. Past Psychological History: Depression Smoking Status: Former smoker Past Alcohol Use History: None Reported Past Drug Use History: Marijuana - Past Family History Mother Family Medical History: Coronary Artery Disease (CAD) Additional Family Medical History / Comment(s): Mother at age 78 with history of coronary artery disease status post multiple stents. Father Family Medical History: Myocardial Infarction (CO) Additional Family Medical History / Comment(s): Father at age 45 from myocardial infarction. Brother(s) Family Medical History: Hypertension Additional Family Medical History / Comment(s): Patient has 1 brother with hypertension and kidney stones. Sister(s) Family Medical History: No Reported History Additional Family Medical History / Comment(s): Patient has one sister with CHRONIC HYPERCOHDRIA AND GALLSTONES Daughter(s) Family Medical History: No Reported History Additional Family Medical History / Comment(s): . General Exam Limitations: no limitations General appearance: alert, in no apparent distress, other (This is a well- developed, well-nourished adult female patient in no acute distress. Vital signs upon presentation temperature 99.0F, pulse 100, respirations 20, blood pressure 166/91, pulse ox 97% on room air.) Eye exam: Present: normal appearance, PERRL, EOMI. Absent: scleral icterus, conjunctival injection, periorbital swelling ENT exam: Present: normal exam, normal oropharynx, mucous membranes moist Respiratory exam: Present: normal lung sounds bilaterally. Absent: respiratory distress, wheezes, rales, rhonchi, stridor Cardiovascular Exam: Present: regular rate, normal rhythm, normal heart sounds. Absent: systolic murmur, diastolic murmur, rubs, gallop, clicks GI/Abdominal exam: Present: soft, normal bowel sounds. Absent: distended, tenderness, guarding, rebound, rigid Neurological exam: Present: alert, oriented X3, CN II-XII intact Psychiatric exam: Present: normal affect, normal mood Skin exam: Present: warm, dry, intact, normal color. Absent: rash Course Vital Signs 10/06/20 10/06/20 18:47 23:36 Temperature 99.0 F Pulse Rate 100 72 Respiratory 20 16 Rate Blood Pressure 166/91 168/79 O2 Sat by Pulse 97 98 Oximetry Medical Decision Making - Medical Decision Making 60-year-old female patient who recently had a reversal of her ileostomy and drain removal presents for evaluation of vomiting and nausea started yesterday. Physical examination reveals soft nontender abdomen. She is afebrile normal vital signs. White blood cell count is 13.8. Lactic acid is negative. CT abdomen and pelvis was obtained and showed evidence for sigmoid colitis. She'll be started on antibiotics. Discharged up with her primary care physician and surgeon for evaluation as soon as possible. Return parameters were discussed in detail. She verbalizes understanding and agrees with this plan. Case discussed with my attending Dr. Castelan. - Lab Data Result diagrams: 10/06/20 19:27 10/06/20 19:27 Lab Results 10/06/20 10/06/20 10/06/20 Range/Units 19:27 19:27 19:27 WBC 13.8 H (3.8-10.6) k/uL RBC 4.03 (3.80-5.40) m/uL Hgb 11.6 (11.4-16.0) gm/dL Hct 34.9 (34.0-46.0) % MCV 86.8 (80.0-100.0) fL MCH 28.8 (25.0-35.0) pg MCHC 33.2 (31.0-37.0) g/dL RDW 13.9 (11.5-15.5) % Plt Count 581 H (150-450) k/uL MPV 6.9 Neutrophils % 77 % Lymphocytes % 15 % Monocytes % 6 % Eosinophils % 1 % Basophils % 0 % Neutrophils # 10.6 H (1.3-7.7) k/uL Lymphocytes # 2.1 (1.0-4.8) k/uL Monocytes # 0.8 (0-1.0) k/uL Eosinophils # 0.2 (0-0.7) k/uL Basophils # 0.1 (0-0.2) k/uL Sodium 138 (137-145) mmol/L Potassium 3.7 (3.5-5.1) mmol/L Chloride 105 (98-107) mmol/L Carbon Dioxide 23 (22-30) mmol/L Anion Gap 10 mmol/L BUN 16 (7-17) mg/dL Creatinine 0.68 (0.52-1.04) mg/dL Est GFR (CKD-EPI)AfAm >90 (>60 ml/min/1.73 sqM) Est GFR (CKD-EPI)NonAf >90 (>60 ml/min/1.73 sqM) Glucose 115 H (74-99) mg/dL Calcium 9.2 (8.4-10.2) mg/dL Magnesium 1.7 (1.6-2.3) mg/dL Total Bilirubin 0.3 (0.2-1.3) mg/dL AST 19 (14-36) U/L ALT 18 (4-34) U/L Alkaline Phosphatase 65 (38-126) U/L Total Protein 6.4 (6.3-8.2) g/dL Albumin 4.0 (3.5-5.0) g/dL Lipase 106 (23-300) U/L Urine Color Light Yellow Urine Appearance Clear (Clear) Urine pH 5.5 (5.0-8.0) Ur Specific Walker 1.004 (1.001-1.035) Urine Protein Negative (Negative) Urine Glucose (UA) Negative (Negative) Urine Ketones Negative (Negative) Urine Blood Negative (Negative) Urine Nitrite Negative (Negative) Urine Bilirubin Negative (Negative) Urine Urobilinogen <2.0 (<2.0) mg/dL Ur Leukocyte Esterase Negative (Negative) - Radiology Data Radiology results: report reviewed, image reviewed KUB shows clinical consideration for gastroenteritis is recommended CT abdomen and pelvis with contrast was obtained. Report was reviewed in its entirety. Impression by Dr. Gillis shows reversal of the ileostomy compared to old exam. Wall thickening and inflammatory changes around the sigmoid colon which are mostly new compared to last exam are consistent with a nonspecific colitis. Multiple nonobstructing bilateral renal calculi unchanged. Umbilical hernia containing small bowel unchanged. Disposition Clinical Impression: Colitis Disposition: HOME SELF-CARE Condition: Good Instructions (If sedation given, give patient instructions): Colitis (ED) Additional Instructions: Increase fluids. Rest. Complete antibiotic prescription in full. Follow-up with your surgeon for further evaluation as soon as possible. Return to the emergency department for any new, worsening, or concerning symptoms. Prescriptions: Amoxic-Pot Clav 875-125Mg [Augmentin 875-125] 1 tab PO Q12HR #20 tablet Ondansetron [Zofran ODT] 4 mg PO Q8HR PRN #20 tab PRN Reason: Nausea Is patient prescribed a controlled substance at d/c from ED?: No Referrals: Connor Alvarez MD [Primary Care Provider] - 1-2 days Time of Disposition: 23:07
[2020-10-06 19:41] LABS: Basophils # (A) 0.1 k/uL (0-0.2); Basophils % (A) 0 %; Eosinophils # (A) 0.2 k/uL (0-0.7); Eosinophils % (A) 1 %; HCT 34.9 % (34.0-46.0); HGB 11.6 gm/dL (11.4-16.0); Lymphocytes # (A) 2.1 k/uL (1.0-4.8); Lymphocytes % (A) 15 %; MCH 28.8 pg (25.0-35.0); MCHC 33.2 g/dL (31.0-37.0); MCV 86.8 fL (80.0-100.0); Mean Platelet Volume 6.9; Monocytes # (A) 0.8 k/uL (0-1.0); Monocytes % (A) 6 %; Neutrophils # (A) 10.6 k/uL (1.3-7.7); Neutrophils % (A) 77 %; Platelet Count 581 k/uL (150-450); RBC 4.03 m/uL (3.80-5.40); RDW 13.9 % (11.5-15.5); WBC 13.8 k/uL (3.8-10.6)
[2020-10-06 19:47] LABS: ALT 18 U/L (4-34); AST 19 U/L (14-36); African American GFR (CKD) >90 (>60 ml/min/1.73 sqM); Alkaline Phosphatase 65 U/L (38-126); Anion Gap 10 mmol/L; Blood Urea Nitrogen 16 mg/dL (7-17); Calcium 9.2 mg/dL (8.4-10.2); Carbon Dioxide 23 mmol/L (22-30); Chloride 105 mmol/L (98-107); Glucose 115 mg/dL (74-99); Lipase 106 U/L (23-300); Magnesium 1.7 mg/dL (1.6-2.3); Non-African American GFR(CKD) >90 (>60 ml/min/1.73 sqM); Potassium 3.7 mmol/L (3.5-5.1); Sodium 138 mmol/L (137-145); Total Bilirubin 0.3 mg/dL (0.2-1.3); Total Protein 6.4 g/dL (6.3-8.2)
--- NOTE | 2020-10-06 21:18 | XR ---
EXAMINATION TYPE: XR KUB DATE OF EXAM: 10/06/2020 COMPARISON: 06/30/2020 INDICATION: Pain, vomiting TECHNIQUE: Single view abdomen upright view FINDINGS: There is an air-fluid level within the transverse colon region. Nonspecific bowel gas is present with in small bowel loops in the ascending colon. No dilated loops of bowel are evident. Differential air- fluid levels are not evident. Psoas margins are normal. No organomegaly is present. No free air is evident. A small right pleural effusion is present. IMPRESSION: 1. Clinical consideration for gastroenteritis is recommended. 2. Small right pleural effusion.
[2020-10-06 21:24] LABS: Appearance,Urine Clear (Clear); Bilirubin,Urine Negative (Negative); Blood,Urine Negative (Negative); Color,Urine Light Yellow; Glucose,Urine (UA) Negative (Negative); Ketones,Urine Negative (Negative); Leukocyte Esterase,Urine Negative (Negative); Nitrite,Urine Negative (Negative); PH, Urine 5.5 (5.0-8.0); Protein,Urine Negative (Negative); Specific Gravity,Urine 1.004 (1.001-1.035); Urobilinogen,Urine <2.0 mg/dL (<2.0)
--- NOTE | 2020-10-06 22:13 | CT ---
EXAMINATION TYPE: CT abdomen pelvis w con DATE OF EXAM: 10/06/2020 COMPARISON: 09/15/2020 HISTORY: vomiting and recnet ileostomy reversal CT DLP: [id number] mGycm Automated exposure control for dose reduction was used. CONTRAST: Performed with IV Contrast, patient injected with 100 mL of Isovue 300. Images obtained from the diaphragm to the floor the pelvis with IV contrast. The lung bases are clear. There is no pleural effusion. There is no pericardial effusion. Heart size is normal. There is mild scarring or subsegmental atelectasis right lower lobe. Liver spleen stomach pancreas gallbladder appear intact. The bile ducts are not dilated. There is no adrenal mass. Kidneys show satisfactory contrast opacification. There are numerous bilate ral renal calculi that measure up to 6 mm. There are small bilateral renal cortical cysts measuring 1 cm. There is no hydronephrosis. Ureters are not dilated. Bladder distends smoothly. There is no inguinal hernia. There is extensive inflammatory changes around the sigmoid colon. There is fat stranding and wall thi ckening of the sigmoid colon. There is also some distention with fluid levels in the transverse colon . There is previous small bowel surgery in the mid abdomen. There is umbilical hernia contains loop o f small bowel. The appendix appears normal. Small bowel is not significantly dilated. There is no asc ites. There is no free air. The lumbar vertebra have normal alignment. Disc spaces are fairly normal. There is no compression fra cture. Bony pelvis is intact. Hip joints are intact. IMPRESSION: There is ring reversal of the ileostomy compared to old exam. There is wall thickening and inflammato ry changes around the sigmoid colon which are mostly new compared to last exam and are consistent wit h a nonspecific colitis. Multiple nonobstructing bilateral renal calculi unchanged. Umbilical hernia containing small bowel un changed.
[2020-10-06] MEDS ORDERED: AMOXIC-POT CLAV 875MG STARTER PACK 2 TAB BTL PO STA (23:05)
[2020-10-06] MEDS ORDERED: traMADol 50 MG STARTER PACK 3 TAB BTL PO STA (23:06)
[2020-10-06 23:38] VITALS: BP 168/79; PULSE 72; RESP 16
== END 2020-10-06 23:39 | disposition home or self-care (01) ==
LOC: EC 18:45
DX: K52.9 Noninfective gastroenteritis and colitis, unspecified (principal); J44.9 Chronic obstructive pulmonary disease, unspecified; E11.9 Type 2 diabetes mellitus without complications; K21.9 Gastro-esophageal reflux disease without esophagitis; E78.5 Hyperlipidemia, unspecified; I10 Essential (primary) hypertension; I25.2 Old myocardial infarction; F32.9 Major depressive disorder, single episode, unspecified; Z87.891 Personal history of nicotine dependence; F12.90 Cannabis use, unspecified, uncomplicated
CPT/HCPCS: 36415; 80053; 83690; 83735; 85025; 81003; 74018; 74177; 99284; 96374; 96375; J1200; J2765; Q9967

== ENCOUNTER → 2020-10-21 | Outpatient (CLI) | payer OTHER ==
--- NOTE | 2020-10-22 07:27 | XR ---
EXAMINATION TYPE: XR chest 2V DATE OF EXAM: 10/21/2020 COMPARISON: 05/09/2020 HISTORY: Shortness of breath TECHNIQUE: Frontal and lateral views of the chest are obtained. FINDINGS: Scattered senescent parenchymal changes noted. Hyperinflation compatible with COPD. No evidence for infiltrate. No evidence for atelectasis. Chronic right basilar pleural thickening or small effusion. Heart size is stable. Mediastinal structures are stable and grossly unremarkable. No evidence for hilar prominence. Degenerative changes dorsal spine. IMPRESSION: 1. Chronic changes without evidence for acute pulmonary disease.
== END | disposition home or self-care (01) ==
LOC: RADXRMAIN 16:13
PROVIDERS: ATTEND Internal Medicine Rheumatology
DX: R91.8 Other nonspecific abnormal finding of lung field (principal)
CPT/HCPCS: 71046